=== PATIENT | female | born 1940 | race Caucasian/White ===

== ENCOUNTER 2019-10-26 10:29 | Outpatient (CLI) | payer MEDICARE, OTHER, SELFPAY ==
--- NOTE | ~2019-10-26 | XR_ITS ---
EXAMINATION: XR shoulder LT min 2V DATE: 10/26/2019 11:32 INDICATION: Left shoulder limited range of motion. TECHNIQUE: 4 views of left shoulder on 5 radiographs were obtained. COMPARISON: None. FINDINGS: Bone alignment is normal. No fracture. There is moderate osteoarthritis of glenohumeral nhung nt and acromioclavicular joint. IMPRESSION: 1. Polyarticular osteoarthritis. Reviewed, dictated and finalized at location E.
--- NOTE | ~2019-10-26 | XR_ITS ---
XR lumbar spine 2-3V DATE: 10/26/2019 11:31 INDICATION: Fall 2 weeks ago. Right hip pain, chest pain TECHNIQUE: AP, lateral, coned lateral lumbosacral views COMPARISON: 07/02/2017 lumbar spine FINDINGS: Diffuse osteopenia. There is interval moderate anterior wedge compression fracture deformity of L2 vertebral body since . No bone destruction is evident. The lumbar pedicles appear intact. Degenerative changes noted in the lower thoracic spine. There is moderate degenerative disc disease at L4-5. There is a transitional fifth lumbar vertebra. The sacroiliac joints appear normal. There is abdominal aortic calcification, without apparent aneur ysm. IMPRESSION: L2 anterior wedge compression fracture deformity since 07/02/2017 Osteopenia Degenerative changes Transitional fifth lumbar vertebra Reviewed, dictated and finalized at location A.
--- NOTE | ~2019-10-26 | XR_ITS ---
XR chest 2V DATE: 10/26/2019 11:32 INDICATION: Left chest pain. Fall 2 weeks ago. TECHNIQUE: 2 views COMPARISON: 11/25/2018 portable AP chest FINDINGS: Normal heart size. Aortic arch calcification. No hilar or mediastinal enlargement. No pulmonary infiltrate or consolidation, pleural effusion or pulmonary vascular congestion or pneumo thorax. Chronic mild elevation of right diaphragm anteriorly. Abdominal aortic calcification. Compression fracture deformity of L2 is suggested. Diffuse osteopenia. There are degenerative changes of the thoracic and lumbar spine. IMPRESSION: Compression fracture of L2; osteopenia No active cardiopulmonary disease Reviewed, dictated and finalized at location A.
--- NOTE | ~2019-10-26 | XR_ITS ---
EXAMINATION: XR hip RT min 2V DATE: 10/26/2019 11:32 INDICATION: Right hip pain. TECHNIQUE: 2 views of right hip were obtained. COMPARISON: Right hip radiographs 06/14/2012 FINDINGS: Bone alignment is normal. No fracture. There is moderate right hip osteoarthritis. IMPRESSION: 1. Stable moderate right hip osteoarthritis. Reviewed, dictated and finalized at location E.
--- NOTE | 2019-10-26 10:50 | ECG_ITS ---
Measurements Intervals [place] Rate: 68 P: 71 [place]: 156 QRS: 67 QRSD: 101 T: 66 QT: 398 QTc: 426 Interpretive Statements SINUS RHYTHM NORMAL ECG Electronically Signed On 10-26-2019 11:40:15 CDT by James Florian D.O.
[2019-10-26 10:51] LABS: Basophils Absolute Auto 0.08 K/mm3 (0.00-0.10); Basophils Percent Auto 0.9 % (0.0-1.0); Eosinophils Absolute Auto 0.17 K/mm3 (0.02-0.50); Eosinophils Percent Auto 1.9 % (1.0-6.0); Hematocrit 28.3 % (35.0-42.0); Hemoglobin 8.5 g/dL (11.7-13.8); Immature Granulocyte Absolute 0.04 K/mm3 (0.00-0.00); Immature Granulocyte Percent A 0.4 % (0.0-0.0); Lymphocytes Absolute Auto 1.27 K/mm3 (1.10-4.50); Lymphocytes Percent Auto 14.2 % (18.0-42.0); Mean Corpuscular Hemoglobin 21.5 pg (27.0-31.0); Mean Corpuscular Volume 71.6 fL (78.0-102.0); Mean Platelet Volume 8.1 fl (9.2-11.8); Monocytes Absolute Auto 0.97 K/mm3 (0.10-0.90); Monocytes Percent Auto 10.8 % (2.0-11.0); Neutrophils Absolute Auto 6.4 K/mm3 (1.7-7.2); Neutrophils Percent Auto 71.8 % (50.0-70.0); Platelet Count Result 494 K/mm3 (150-420); Red Blood Count 3.95 M/mm3 (4.20-5.40)
[2019-10-26 10:57] LABS: Add Urine Microscopic? YES; Appearance Urine Clear (Clear); Bilirubin Urine Negative (Negative); Blood Urine Negative (Negative); Color Urine Yellow (Yellow); Glucose Urine UA Negative (Negative); Ketones Urine Negative (Negative); Leukocyte Esterase Ur 1+ (Negative); Nitrate Urine Negative (Negative); Protein Urine Negative (Negative); Urobilinogen Urine 0.2 mg/dL (0.2-1.0)
[2019-10-26 11:01] LABS: Bacteria Urine 3+ /hpf; RBC Urine 0-2 /hpf (0-2); Squamous Epithelial Cell Urine Many /hpf (Few); WBC Urine 16-20 /hpf (0-3)
[2019-10-26 11:09] LABS: MALB Creatinine Ratio 14.6 mg/g (0-30); Microalbumin Urine Random 5.8 mg/L
[2019-10-26 11:16] LABS: Alanine Aminotransferase 43 U/L (14-59); Albumin Level 3.4 g/dL (3.4-5.0); Alkaline Phosphatase 108 U/L (46-116); Anion Gap 12.5 mmol/L (7-16); Aspartate Amino Transferase 28 U/L (15-37); Bilirubin,Total 0.3 mg/dL (0.00-1.00); Blood Urea Nitrogen 12 mg/dL (7-18); Calcium 8.8 mg/dL (8.5-10.1); Carbon Dioxide 31 mmol/L (21-32); Chloride 95 mmol/L (98-108); Creatine Kinase 55 U/L (26-192); Estimated Glomerular Filt Rate 38; Glucose 218 mg/dL (70-99); Magnesium 1.8 mg/dL (1.8-2.4); Osmolality Calculated 286 mOsm/kg (285-295); Potassium 3.5 mmol/L (3.5-5.1); Sodium 135 mmol/L (136-145); Thyroid Stimulating Hormone 1.24 uIU/mL (0.36-3.74); Total Protein 7.4 g/dL (6.4-8.2)
[2019-10-26 11:18] LABS: Creatine Kinase MB < 0.50 ng/mL (0.00-5.00); Troponin I < 0.02 ng/mL (0.00-0.056)
[2019-10-26 14:54] LABS: Ferritin 13 ng/mL (8-252); Iron 22 ug/dL (50-170); Percent Iron Saturation 5 % (12-57)
== END 2019-10-26 10:30 | disposition home or self-care (01) ==
PROVIDERS: PCP Family Medicine; Visit Provider Family Medicine
DX: R07.89 Other chest pain (principal); M25.512 Pain in left shoulder; M25.551 Pain in right hip; E83.42 Hypomagnesemia; I10 Essential (primary) hypertension; D64.9 Anemia, unspecified; W19.XXXA Unspecified fall, initial encounter
CPT/HCPCS: 36415; 71046; 72100; 73030; 73502; 80053; 81001; 82043; 82550; 82553; 82728; 83540; 83550; 83735; 84443; 84484; 85025; 93005

== ENCOUNTER 2020-02-16 09:55 | Outpatient (CLI) | payer MEDICARE, SELFPAY ==
[2020-02-16 10:10] LABS: Basophils Absolute Auto 0.07 K/mm3 (0.00-0.10); Basophils Percent Auto 0.9 % (0.0-1.0); Eosinophils Absolute Auto 0.16 K/mm3 (0.02-0.50); Hematocrit 28.5 % (35.0-42.0); Immature Granulocyte Absolute 0.03 K/mm3 (0.00-0.00); Immature Granulocyte Percent A 0.4 % (0.0-0.0); Lymphocytes Absolute Auto 1.99 K/mm3 (1.10-4.50); Lymphocytes Percent Auto 25.2 % (18.0-42.0); Mean Corpuscular HGB Conc 28.1 g/dL (32.0-36.0); Mean Corpuscular Hemoglobin 19.4 pg (27.0-31.0); Mean Corpuscular Volume 69.2 fL (78.0-102.0); Mean Platelet Volume 8.2 fl (9.2-11.8); Monocytes Absolute Auto 0.79 K/mm3 (0.10-0.90); Neutrophils Absolute Auto 4.9 K/mm3 (1.7-7.2); Neutrophils Percent Auto 61.5 % (50.0-70.0); Platelet Count Result 712 K/mm3 (150-420); Red Blood Count 4.12 M/mm3 (4.20-5.40); Red Cell Distribution Width 17.7 % (11.6-14.4); White Blood Count 7.9 K/mm3 (4.8-10.8)
[2020-02-16 11:05] LABS: Anion Gap 12 mmol/L (8-16); Blood Urea Nitrogen 13 mg/dL (7-18); Calcium 8.7 mg/dL (8.5-10.1); Carbon Dioxide 31 mmol/L (21-32); Chloride 104 mmol/L (98-108); Cholesterol 191 mg/dL (0-200); Estimated Glomerular Filt Rate 45; Ferritin 15 ng/mL (8-252); Glucose 156 mg/dL (70-99); HDL Direct 35 mg/dL (40-60); Iron 17 ug/dL (50-170); LDL Cholesterol Calculated 113 mg/dL (<130); Osmolality Calculated 307 mOsm/kg (285-295); Percent Iron Saturation 4 % (12-57); Potassium 4.7 mmol/L (3.5-5.1); Sodium 147 mmol/L (136-145); Triglycerides 215 mg/dL (0-150)
== END 2020-02-16 09:56 | disposition home or self-care (01) ==
LOC: CHSLAB 09:57
PROVIDERS: PCP Family Medicine; Visit Provider Family Medicine
DX: E78.2 Mixed hyperlipidemia (principal); I10 Essential (primary) hypertension; D64.9 Anemia, unspecified
CPT/HCPCS: 36415; 80048; 80061; 82728; 83540; 83550; 85025

== ENCOUNTER 2020-02-20 16:19 | Outpatient (CLI) | payer MEDICARE, SELFPAY ==
[2020-02-20 16:39] LABS: Occult Blood Negative (Negative)
[2020-02-20 16:40] LABS: Occult Blood Negative (Negative)
== END 2020-02-20 16:20 | disposition home or self-care (01) ==
PROVIDERS: PCP Family Medicine; Visit Provider Family Medicine
DX: D64.9 Anemia, unspecified (principal)
CPT/HCPCS: 82272

== ENCOUNTER 2020-06-21 12:55 | Outpatient (CLI) | payer MEDICARE, SELFPAY ==
[2020-06-21 13:14] LABS: Eosinophils Absolute Auto 0.21 K/mm3 (0.02-0.50); Hematocrit 28.6 % (35.0-42.0); Hemoglobin 8.4 g/dL (11.7-13.8); Immature Granulocyte Absolute 0.03 K/mm3 (0.00-0.00); Immature Granulocyte Percent A 0.3 % (0.0-0.0); Immature Platelet Fraction Pct 0.8 % (1.0-7.0); Lymphocytes Absolute Auto 2.16 K/mm3 (1.10-4.50); Lymphocytes Percent Auto 20.8 % (18.0-42.0); Mean Corpuscular HGB Conc 29.4 g/dL (32.0-36.0); Mean Corpuscular Hemoglobin 20.5 pg (27.0-31.0); Mean Corpuscular Volume 69.9 fL (78.0-102.0); Mean Platelet Volume 8.7 fl (9.2-11.8); Monocytes Absolute Auto 0.89 K/mm3 (0.10-0.90); Monocytes Percent Auto 8.6 % (2.0-11.0); Neutrophils Percent Auto 67.3 % (50.0-70.0); Platelet Count Result 581 K/mm3 (150-420); Red Blood Count 4.09 M/mm3 (4.20-5.40); Red Cell Distribution Width 17.4 % (11.6-14.4); White Blood Count 10.4 K/mm3 (4.8-10.8)
[2020-06-21 14:01] LABS: Alanine Aminotransferase 74 U/L (14-59); Albumin Level 3.7 g/dL (3.4-5.0); Alkaline Phosphatase 124 U/L (46-116); Anion Gap 11 mmol/L (8-16); Aspartate Amino Transferase 59 U/L (15-37); Bilirubin,Total 0.4 mg/dL (0.00-1.00); Blood Urea Nitrogen 13 mg/dL (7-18); Calcium 8.4 mg/dL (8.5-10.1); Carbon Dioxide 26 mmol/L (21-32); Chloride 91 mmol/L (98-108); Estimated Glomerular Filt Rate 39; Free T4 Free Thyroxine 1.33 ng/dL (0.76-1.46); Glucose 367 mg/dL (70-99); Iron 55 ug/dL (50-170); Osmolality Calculated 281 mOsm/kg (285-295); Percent Iron Saturation 12 % (12-57); Potassium 3.9 mmol/L (3.5-5.1); Sodium 128 mmol/L (136-145); Thyroid Stimulating Hormone 3.56 uIU/mL (0.36-3.74)
== END 2020-06-21 12:56 | disposition home or self-care (01) ==
LOC: CHSLAB 12:57
PROVIDERS: PCP Family Medicine; Visit Provider Family Medicine
DX: D64.9 Anemia, unspecified (principal); I10 Essential (primary) hypertension; R53.83 Other fatigue
CPT/HCPCS: 36415; 80053; 83540; 83550; 84439; 84443; 85025; 85055

== ENCOUNTER 2020-09-11 13:52 | Outpatient (CLI) | payer MEDICARE, SELFPAY ==
[2020-09-11 14:13] LABS: Basophils Absolute Auto 0.12 K/mm3 (0.00-0.10); Basophils Percent Auto 1.4 % (0.0-1.0); Eosinophils Absolute Auto 0.25 K/mm3 (0.02-0.50); Eosinophils Percent Auto 2.9 % (1.0-6.0); Hematocrit 30.2 % (35.0-42.0); Hemoglobin 8.6 g/dL (11.7-13.8); Immature Granulocyte Absolute 0.03 K/mm3 (0.00-0.00); Immature Granulocyte Percent A 0.3 % (0.0-0.0); Immature Platelet Fraction Pct 1.2 % (1.0-7.0); Lymphocytes Absolute Auto 1.69 K/mm3 (1.10-4.50); Lymphocytes Percent Auto 19.4 % (18.0-42.0); Mean Corpuscular HGB Conc 28.5 g/dL (32.0-36.0); Mean Corpuscular Hemoglobin 20.3 pg (27.0-31.0); Mean Corpuscular Volume 71.4 fL (78.0-102.0); Mean Platelet Volume 8.9 fl (9.2-11.8); Monocytes Absolute Auto 0.75 K/mm3 (0.10-0.90); Monocytes Percent Auto 8.6 % (2.0-11.0); Neutrophils Absolute Auto 5.9 K/mm3 (1.7-7.2); Neutrophils Percent Auto 67.4 % (50.0-70.0); Platelet Count Result 536 K/mm3 (150-420); Red Blood Count 4.23 M/mm3 (4.20-5.40); Red Cell Distribution Width 17.5 % (11.6-14.4); White Blood Count 8.7 K/mm3 (4.8-10.8)
[2020-09-11 15:10] LABS: Anion Gap 9 mmol/L (8-16); Blood Urea Nitrogen 17 mg/dL (7-18); Calcium 8.6 mg/dL (8.5-10.1); Carbon Dioxide 27 mmol/L (21-32); Chloride 95 mmol/L (98-108); Estimated Glomerular Filt Rate 34; Glucose 303 mg/dL (70-99); Osmolality Calculated 284 mOsm/kg (285-295); Sodium 131 mmol/L (136-145)
== END 2020-09-11 13:53 | disposition home or self-care (01) ==
LOC: CHSLAB 13:59
PROVIDERS: PCP Family Medicine; Visit Provider Family Medicine
DX: D64.9 Anemia, unspecified (principal); I10 Essential (primary) hypertension
CPT/HCPCS: 36415; 80048; 85025; 85055

== ENCOUNTER 2020-09-13 13:40 | Outpatient (CLI) | payer MEDICARE, SELFPAY ==
[2020-09-13 13:58] LABS: Add Urine Microscopic? YES; Appearance Urine Clear (Clear); Bilirubin Urine Negative (Negative); Blood Urine Negative (Negative); Color Urine Yellow (Yellow); Glucose Urine UA Trace (Negative); Ketones Urine Negative (Negative); Leukocyte Esterase Ur Trace (Negative); Nitrate Urine Negative (Negative); Protein Urine Trace (Negative); Urobilinogen Urine 0.2 mg/dL (0.2-1.0)
[2020-09-13 14:21] LABS: Bacteria Urine 3+ /hpf; RBC Urine 0-2 /hpf (0-2); Squamous Epithelial Cell Urine Many /hpf (Few)
== END 2020-09-13 13:41 | disposition home or self-care (01) ==
LOC: CHSLAB 13:42
PROVIDERS: PCP Family Medicine; Visit Provider Family Medicine
DX: D50.8 Other iron deficiency anemias (principal)
CPT/HCPCS: 81001

== ENCOUNTER 2020-12-26 15:49 | Outpatient (CLI) | payer MEDICARE, SELFPAY ==
[2020-12-26 16:04] LABS: Basophils Absolute Auto 0.11 K/mm3 (0.00-0.10); Basophils Percent Auto 1.3 % (0.0-1.0); Eosinophils Absolute Auto 0.12 K/mm3 (0.02-0.50); Eosinophils Percent Auto 1.5 % (1.0-6.0); Hematocrit 28.6 % (35.0-42.0); Hemoglobin 8.4 g/dL (11.7-13.8); Immature Granulocyte Absolute 0.02 K/mm3 (0.00-0.00); Immature Granulocyte Percent A 0.2 % (0.0-0.0); Immature Platelet Fraction Pct 0.8 % (1.0-7.0); Lymphocytes Absolute Auto 1.74 K/mm3 (1.10-4.50); Lymphocytes Percent Auto 21.1 % (18.0-42.0); Mean Corpuscular HGB Conc 29.4 g/dL (32.0-36.0); Mean Corpuscular Volume 68.3 fL (78.0-102.0); Mean Platelet Volume 8.2 fl (9.2-11.8); Monocytes Absolute Auto 0.85 K/mm3 (0.10-0.90); Monocytes Percent Auto 10.3 % (2.0-11.0); Neutrophils Absolute Auto 5.4 K/mm3 (1.7-7.2); Neutrophils Percent Auto 65.6 % (50.0-70.0); Platelet Count Result 571 K/mm3 (150-420); Red Blood Count 4.19 M/mm3 (4.20-5.40); Red Cell Distribution Width 18.7 % (11.6-14.4); White Blood Count 8.3 K/mm3 (4.8-10.8)
[2020-12-26 16:44] LABS: Alanine Aminotransferase 71 U/L (14-59); Albumin Level 3.7 g/dL (3.4-5.0); Alkaline Phosphatase 154 U/L (46-116); Anion Gap 15 mmol/L (8-16); Aspartate Amino Transferase 60 U/L (15-37); Bilirubin,Total 0.4 mg/dL (0.00-1.00); Blood Urea Nitrogen 17 mg/dL (7-18); Calcium 8.8 mg/dL (8.5-10.1); Carbon Dioxide 26 mmol/L (21-32); Chloride 98 mmol/L (98-108); Estimated Glomerular Filt Rate 37; Glucose 178 mg/dL (70-99); Osmolality Calculated 293 mOsm/kg (285-295); Potassium 4.3 mmol/L (3.5-5.1); Sodium 139 mmol/L (136-145); Thyroid Stimulating Hormone 3.74 uIU/mL (0.36-3.74); Total Protein 7.1 g/dL (6.4-8.2)
== END 2020-12-26 15:50 | disposition home or self-care (01) ==
LOC: CHSLAB 15:51
PROVIDERS: PCP Family Medicine; Visit Provider Family Medicine
DX: I10 Essential (primary) hypertension (principal); E03.8 Other specified hypothyroidism
CPT/HCPCS: 36415; 80053; 84443; 85025; 85055

== ENCOUNTER 2021-08-10 16:22 | Outpatient (NON) | payer MEDICARE, SELFPAY ==
[2021-08-10 16:38] LABS: Occult Blood Negative (Negative)
[2021-08-10 16:38] LABS: Occult Blood Negative (Negative)
[2021-08-10 16:38] LABS: Occult Blood Negative (Negative)
== END 2021-08-10 16:23 | disposition home or self-care (01) ==
LOC: CHSLAB 16:25
PROVIDERS: Visit Provider Family Medicine
DX: D50.9 Iron deficiency anemia, unspecified (principal)
CPT/HCPCS: 82272

== ENCOUNTER 2021-09-09 09:56 | Outpatient (CLI) | payer MEDICARE, SELFPAY ==
[2021-09-09 10:12] LABS: Basophils Absolute Auto 0.14 K/mm3 (0.00-0.10); Basophils Percent Auto 1.7 % (0.0-1.0); Eosinophils Absolute Auto 0.19 K/mm3 (0.02-0.50); Eosinophils Percent Auto 2.4 % (1.0-6.0); Hematocrit 23.8 % (35.0-42.0); Immature Granulocyte Absolute 0.02 K/mm3 (0.00-0.00); Immature Granulocyte Percent A 0.2 % (0.0-0.0); Immature Platelet Fraction Pct 1.4 % (1.0-7.0); Lymphocytes Percent Auto 21.2 % (18.0-42.0); Mean Corpuscular HGB Conc 26.5 g/dL (32.0-36.0); Mean Corpuscular Hemoglobin 17.3 pg (27.0-31.0); Mean Corpuscular Volume 65.2 fL (78.0-102.0); Mean Platelet Volume 8.7 fl (9.2-11.8); Monocytes Percent Auto 12.5 % (2.0-11.0); Platelet Count Result 636 K/mm3 (150-420); Red Blood Count 3.65 M/mm3 (4.20-5.40); Red Cell Distribution Width 19.3 % (11.6-14.4)
[2021-09-09 10:19] LABS: Hemoglobin 6.3 g/dL (11.7-13.8)
== END 2021-09-09 09:57 | disposition home or self-care (01) ==
LOC: CHSLAB 09:58
PROVIDERS: PCP Family Medicine; Visit Provider Family Medicine
DX: D64.9 Anemia, unspecified (principal)
CPT/HCPCS: 36415; 85025; 85055

== ENCOUNTER 2022-11-17 11:29 | Outpatient (CLI) | payer MEDICARE, SELFPAY ==
[2022-11-17 11:51] LABS: Basophils Absolute Auto 0.12 K/mm3 (0.00-0.10); Basophils Percent Auto 1.2 % (0.0-1.0); Hematocrit 35.2 % (35.0-42.0); Hemoglobin 11.4 g/dL (11.7-13.8); Immature Granulocyte Absolute 0.03 K/mm3 (0.00-0.00); Immature Granulocyte Percent A 0.3 % (0.0-0.0); Lymphocytes Absolute Auto 2.15 K/mm3 (1.10-4.50); Lymphocytes Percent Auto 21.5 % (18.0-42.0); Mean Corpuscular HGB Conc 32.4 g/dL (32.0-36.0); Mean Corpuscular Hemoglobin 32.7 pg (27.0-31.0); Mean Corpuscular Volume 100.9 fL (78.0-102.0); Monocytes Absolute Auto 1.11 K/mm3 (0.10-0.90); Monocytes Percent Auto 11.1 % (2.0-11.0); Neutrophils Absolute Auto 6.4 K/mm3 (1.7-7.2); Neutrophils Percent Auto 63.9 % (50.0-70.0); Platelet Count Result 306 K/mm3 (150-420); Red Blood Count 3.49 M/mm3 (4.20-5.40); Red Cell Distribution Width 13.5 % (11.6-14.4)
[2022-11-17 12:15] LABS: Alanine Aminotransferase 40 U/L (14-59); Albumin Level 3.3 g/dL (3.4-5.0); Alkaline Phosphatase 171 U/L (46-116); Anion Gap 9 mmol/L (8-16); Aspartate Amino Transferase 33 U/L (15-37); Bilirubin,Total 0.4 mg/dL (0.00-1.00); Blood Urea Nitrogen 17 mg/dL (7-18); Calcium 8.7 mg/dL (8.5-10.1); Carbon Dioxide 28 mmol/L (21-32); Chloride 98 mmol/L (98-108); Estimated Glomerular Filt Rate 53; Glucose 219 mg/dL (70-99); Osmolality Calculated 288 mOsm/kg (285-295); Potassium 4.5 mmol/L (3.5-5.1); Sodium 135 mmol/L (136-145); Total Protein 6.8 g/dL (6.4-8.2)
[2022-11-17 13:01] LABS: Appearance Urine Clear (Clear); Bilirubin Urine Negative (Negative); Blood Urine Negative (Negative); Color Urine Yellow (Yellow); Glucose Urine UA Negative (Negative); Ketones Urine Negative (Negative); Leukocyte Esterase Ur Negative (Negative); Nitrate Urine Negative (Negative); Protein Urine Negative (Negative); Urobilinogen Urine 0.2 mg/dL (0.2-1.0)
[2022-11-17 13:10] LABS: Creatinine Urine 143.24 mg/dL (40-278); MALB Creatinine Ratio 11.5 mg/g (0-30); Microalbumin Urine Random 16.6 mg/L
[2022-11-17 13:17] LABS: Add Urine Microscopic? NO
[2022-11-17 14:45] LABS: Hemoglobin A1C 8.3 % (<5.7)
== END 2022-11-17 11:30 | disposition home or self-care (01) ==
LOC: CHSLAB 11:32
PROVIDERS: PCP Family Medicine; Visit Provider Family Medicine
DX: I10 Essential (primary) hypertension (principal); E11.9 Type 2 diabetes mellitus without complications
CPT/HCPCS: 36415; 80053; 81003; 82043; 83036; 85025

== ENCOUNTER 2022-12-01 09:31 | Outpatient (CLI) | payer MEDICARE, OTHER, SELFPAY ==
--- NOTE | ~2022-12-01 | XR_ITS ---
Left ankle Technique: AP, oblique, and lateral views were obtained. Clinical History: Pain Findings: No acute fracture or dislocation is seen. Osseous alignment is anatomic. Ankle mortise and other visualized joint spaces are preserved. Soft tissues are otherwise unremarkable. Impression: Unremarkable left ankle. Reviewed, dictated and finalized at location . Impression: Unremarkable left ankle.
== END 2022-12-01 09:32 | disposition home or self-care (01) ==
PROVIDERS: PCP Family Medicine; Visit Provider Family Medicine
DX: I51.89 Other ill-defined heart diseases (principal); M25.572 Pain in left ankle and joints of left foot
CPT/HCPCS: 73610

== ENCOUNTER 2023-08-04 13:00 | Emergency (ER) | payer MEDICARE, OTHER, SELFPAY ==
--- NOTE | ~2023-08-04 | XR_ITS ---
EXAMINATION: XR shoulder RT min 2V INDICATION: Right shoulder pain TECHNIQUE: Four views of the right shoulder are submitted. COMPARISON: 09/03/2015 FINDINGS: Normal alignment. No fracture. There is moderate osteoarthritis of the acromioclavicular an d glenohumeral joints. Soft tissues are unremarkable. IMPRESSION: 1. Moderate osteoarthritis without acute osseous abnormality. Reviewed, dictated and finalized at location L. UTE RESOLUTION ANALYST
--- NOTE | ~2023-08-04 | XR_ITS ---
EXAMINATION: XR knee RT min 4V DATE: 08/04/2023 13:59 INDICATION: Fall. TECHNIQUE: 3 views of right knee were obtained. COMPARISON: Right knee radiographs 12/28/2013 FINDINGS: Bone alignment is normal. No fracture. There is mild tricompartmental osteoarthritis. There is a small knee joint effusion. There is prepatellar and superficial infrapatellar soft tissue swell ing. IMPRESSION: 1. Mild right knee osteoarthritis. 2. Small right knee joint effusion. Reviewed, dictated and finalized at location A. RAM PROJECT MANAGER
--- NOTE | ~2023-08-04 | XR_ITS ---
EXAMINATION: XR elbow RT min 3V INDICATION: Right elbow pain TECHNIQUE: Four views of the right elbow are obtained. COMPARISON: None available FINDINGS: Bone alignment is normal. There is no fracture. There is moderate osteoarthritis of the elb ow. The soft tissues are unremarkable. IMPRESSION: 1. Osteoarthritis without acute osseous abnormality. Reviewed, dictated and finalized at location L. SHABLE FRUIT INSPECTOR
--- NOTE | ~2023-08-04 | CT_ITS ---
EXAMINATION: CT facial & cervical spine wo DATE: 08/04/2023 14:01 INDICATION: Head injury, initial encounter TECHNIQUE: Computed tomography (CT) of the maxillofacial region and cervical spine was performed with out intravenous contrast. The dose-length product (DLP) was 415.64 mGy-cm. Automated exposure control and iterative reconstruction technique were employed. COMPARISON: None FINDINGS: MAXILLOFACIAL CT: There are acute bilateral nasal bone fractures, mildly comminuted and displaced on the left. No addit ional facial fracture is identified. Orbits are normal. CERVICAL SPINE CT: There are 2 mm of anterolisthesis of C4 on C5. The vertebral body heights are maintained. There is mo derate loss of intervertebral disc space height at C5-C6. The odontoid process is intact. There is mu ltilevel moderate facet and uncovertebral joint osteoarthritis. The prevertebral soft tissues are nor mal. IMPRESSION: 1. Acute bilateral nasal bone fractures, mildly comminuted and displaced on the left. 2. Moderate cervical spondylosis without acute findings. Reviewed, dictated and finalized at location L. CH THERAPIST TECHNICIAN
--- NOTE | ~2023-08-04 | CT_ITS ---
EXAMINATION: CT brain wo con DATE: 08/04/2023 13:59 INDICATION: Head injury. TECHNIQUE: Computed tomography (CT) of the head was performed without intravenous contrast. The mA wa s adjusted according to patient size. Iterative reconstruction technique was employed. The dose-lengt h product was 605.33 mGy-cm. COMPARISON: None FINDINGS: There are scattered areas of low attenuation in the cerebral white matter, which is within normal limits for the patient's age. There is no intracranial hemorrhage, acute infarction, or abnorm al intracranial mass lesion. The ventricles are normal in size. There is mild mucosal thickening in t he paranasal sinuses. There is a fracture of left nasal bone. There are likely changes of ocular lens replacement surgeries. The mastoid air cells are normal. IMPRESSION: 1. Normal aging brain. 2. Fracture of left nasal bone. Reviewed, dictated and finalized at location A. ROOM HAND
[2023-08-04 13:00] VITALS: BP 128/64; PULSE 80; RESP 18; TEMP 36.1; O2SAT 93
--- NOTE | 2023-08-04 13:04 | ED.FALL ---
HPI - Fall General Chief Complaint: Fall Stated Complaint: fall Time Seen by Provider: 08/04/23 13:04 Patient is an 83-year-old female with a mechanical fall prior to arrival. She was walking in the parking lot after having a few drinks and tripped and fell onto her right side and right face. Source: patient Mode of arrival: ambulatory Limitations: no limitations History of Present Illness MD complaint: fall Onset (ago): minute(s) (30) Fall from: standing Fall witnessed: yes, by family Place fall occurred: street Loss of consciousness: none Prolonged down time: no Symptoms prior to fall: none Context: tripped/slipped and alcohol use Location of injury: head, face and other Location of injury - extremities: Right: shoulder and knee Severity: mild Severity scale (1-10): 2 Quality: dull Associated symptoms (after fall): denies Related Data Home Medications Medication Instructions Recorded Confirmed No Home Medications 06/11/19 06/11/19 Allergies Allergy/AdvReac Type Severity Reaction Status Date / Time No Known Allergies Allergy Unverified 08/04/23 14:14 Review of Systems Review of Systems: All systems reviewed & are unremarkable except as noted in HPI and below Constitutional: Constitutional: Reports no additional constitutional complaints Eyes: Eyes: Reports no additional eye complaints ENT: Reports system reviewed and no additional complaints, except as documented Cardiovascular: Cardiovascular: Reports no additional cardiovascular complaints Respiratory: Respiratory: Reports no additional respiratory complaints Gastrointestinal: Gastrointestinal: Reports no additional gastrointestinal complaints Genitourinary: Genitourinary: Reports no additional female genitourinary complaints Musculoskeletal: Musculoskeletal: Reports no additional musculoskeletal complaints Integumentary/Breasts: Skin/Breast: Reports system reviewed and no additional complaints, except as docu Neurologic: Reports system reviewed and no additional complaints, except as documented Psychiatric: Psychiatric: Reports no additional psychiatric complaints Endocrine: Endocrine: Reports no additional endocrine complaints Hematologic/Lymphatic: Hematologic/Lymphatic: Reports no additional hematologic/lymphatic complaints Allergic/Immunologic: Allergic/Immunologic: Reports no additional allergic/immunologic complaints PMFSH Family History Family History Other Family history of arthritis Social History Social History Alcohol intake: current Exam Const: General: healthy appearing Nutritional Appearance: well nourished Orientation/consciousness: patient oriented x3 HENMT: Head: normal to inspection Ears: external ears normal Face/Nose/Sinus: Normal external nose present Face and sinus: normal facial exam Eyes: Conjunctivae: conjunctivae normal Pupils: Equal, round and reactive pupils present EOM: EOMs intact bilaterally Neck: Neck: normal visual inspection Chest: Chest palpation & inspection: normal inspection of the chest Resp: Effort & Inspection: normal respiratory effort and not labored Auscultation: clear to auscultation bilaterally and no crackles Cardio: Rate: regular rate Rhythm: regular rhythm Heart sounds: no murmurs GI: Inspection: non-distended GI Palp: Yes Soft to palpation and No Tenderness to palpation present (GI) Auscultation: normal bowel sounds : General: Yes bladder normal to palpation Back/Spine/Pelvis: Back: no CVA tenderness Skin: General skin exam: normal color Rashes: no rashes Wounds: wound noted and wounds noted Other: Abrasions of the right knee right elbow and of the face; the bridge of the nose has a small superficial laceration with some ecchymosis Neuro: General: patient oriented x3 Cranial nerves: Yes Nystagmus not present Speech: normal speech Ex
--- NOTE | 2023-08-04 14:35 | PC.NURSE ---
On 08/04/23, the student, Marisol Cabrera, provided care and completed [facility] documentation on this patient. I have reviewed the student's documentation and agree with the findings.
[2023-08-04 14:39] VITALS: BP 128/64; PULSE 80; RESP 18; TEMP 36.1; O2SAT 93
--- NOTE | 2023-08-04 14:39 | PC.NURSE ---
Patient unable to tolerate discharge blood pressure and ripped off cuff. Patient and family refused discharge vitals.
== END 2023-08-04 14:39 | disposition home or self-care (01) ==
PROVIDERS: Emergency Provider Emergency Medicine; PCP Family Medicine
DX: S02.2XXA Fracture of nasal bones, initial encounter for closed fracture (principal); S00.33XA Contusion of nose, initial encounter; W01.0XXA Fall on same level from slipping, tripping and stumbling without subsequent striking against object, initial encounter; Y92.481 Parking lot as the place of occurrence of the external cause
CPT/HCPCS: 70450; 70486; 72125; 73030; 73080; 73564; 99284

== ENCOUNTER 2024-05-14 01:54 | Emergency (ER) | payer MEDICARE, OTHER, SELFPAY ==
--- NOTE | ~2024-05-14 | XR_ITS ---
EXAMINATION: XR hip RT 2V w AP pelvis DATE: 05/14/2024 03:01 INDICATION: Fall. TECHNIQUE: An anteroposterior view of the pelvis and 2 views of right hip were obtained. COMPARISON: None. FINDINGS: There is lumbar dextrocurvature. There are fractures of right superior and inferior pubic r ami. There is a fracture of the right sacral ala. There is moderate right hip osteoarthritis and mild left hip osteoarthritis. IMPRESSION: 1. Fractures of right superior and inferior pubic rami and the right sacral ala. 2. Moderate right hip osteoarthritis and mild left hip osteoarthritis. Reviewed, dictated and finalized at location A. ODUCTS MAKER IMPRESSION: 1. Fractures of right superior and inferior pubic rami and the right sacral ala . 2. Moderate right hip osteoarthritis and mild left hip osteoarthritis.
--- NOTE | ~2024-05-14 | XR_ITS ---
EXAMINATION: XR femur RT min 2V DATE: 05/14/2024 03:01 INDICATION: Right thigh injury. Fall. TECHNIQUE: 2 views of right femur on 4 radiographs were obtained. COMPARISON: None. FINDINGS: There are fractures of the right superior and inferior pubic rami and right sacral ala. The re is moderate right hip and knee osteoarthritis. No knee joint effusion. IMPRESSION: 1. Fractures of the right superior and inferior pubic rami and right sacral ala. 2. Polyarticular osteoarthritis. Reviewed, dictated and finalized at location A. PROGRAM COORDINATOR IMPRESSION: 1. Fractures of the right superior and inferior pubic rami and right sacral ala . 2. Polyarticular osteoarthritis.
--- NOTE | ~2024-05-14 | CT_ITS ---
EXAMINATION: CT brain wo con DATE: 05/14/2024 02:34 INDICATION: Head injury. Head and neck pain. TECHNIQUE: Computed tomography (CT) of the head was performed without intravenous contrast. The mA wa s adjusted according to patient size. Iterative reconstruction technique was employed. The dose-lengt h product was 605.33 mGy-cm. COMPARISON: head CT 08/04/2023 FINDINGS: There are scattered areas of low attenuation in the cerebral white matter, which is within normal limits for the patient's age. There is no intracranial hemorrhage, acute infarction, or abnorm al intracranial mass lesion. The ventricles are normal in size. There is mucosal thickening in the pa ranasal sinuses. There are likely changes of ocular lens replacement surgeries. The mastoid air cells are normal. There is an old fracture of left nasal bone. IMPRESSION: 1. Normal aging brain. Reviewed, dictated and finalized at location A. STRIAL RECRUITER IMPRESSION: 1. Normal aging brain.
--- NOTE | ~2024-05-14 | CT_ITS ---
EXAMINATION: CT cervical spine wo con DATE: 05/14/2024 02:35 INDICATION: Head and neck pain. Fall. TECHNIQUE: Computed tomography (CT) of the cervical spine was performed without intravenous contrast. Automated exposure control and iterative reconstruction technique were employed. The dose-length pro duct was 546.05 mGy-cm. COMPARISON: CT cervical spine 08/04/2023 FINDINGS: There is mild scarring at the lung apices. A calcified right lung nodule is consistent with old granulomatous disease. There is mild kyphosis of cervical spine. There is 2 mm anterolisthesis o f C4 on C5. Vertebral body heights are normal. There is mildly decreased disc height at C4-C5 and sev erely decreased disc height at C5-C6 and C6-C7. The following disc levels are specifically discussed: C2-C3: There is no uncovertebral joint osteoarthritis. There is severe bilateral facet joint osteoart hritis. There is no neural foraminal stenosis. There is no central canal stenosis. C3-C4: There is mild bilateral uncovertebral joint osteoarthritis. There is severe bilateral facet marie int osteoarthritis. There is no neural foraminal stenosis. There is mild central canal stenosis. C4-C5: There is moderate bilateral uncovertebral joint osteoarthritis. There is severe bilateral face t joint osteoarthritis. There is mild bilateral neural foraminal stenosis. There is mild central desmond l stenosis. C5-C6: There is severe bilateral uncovertebral joint osteoarthritis. There is moderate right and tayler re left facet joint osteoarthritis. There is mild bilateral neural foraminal stenosis. There is moder ate central canal stenosis. C6-C7: There is moderate right and severe left uncovertebral joint osteoarthritis. There is severe bi lateral facet joint osteoarthritis. There is mild bilateral neural foraminal stenosis. There is mild central canal stenosis. C7-T1: There is no uncovertebral joint osteoarthritis. There is severe bilateral facet joint osteoart hritis. There is mild bilateral neural foraminal stenosis. There is no central canal stenosis. IMPRESSION: 1. No fracture. 2. Severe cervical spondylosis. Reviewed, dictated and finalized at location A. ING AND CURING OPERATOR
--- NOTE | ~2024-05-14 | CT_ITS ---
EXAMINATION: CT abdomen pelvis w con DATE: 05/14/2024 04:01 INDICATION: Pelvic fracture. Fall. TECHNIQUE: Computed tomography (CT) of the abdomen and pelvis was performed with 100 mL Omnipaque 350 intravenous contrast. Automated exposure control and iterative reconstruction technique were employe d. The dose-length product was 1461.26 mGy-cm. COMPARISON: CT abdomen and pelvis 01/14/2013 FINDINGS: The visualized portions of the lung bases demonstrate mild atelectasis. No pleural effusion . The heart size is normal. No pericardial effusion. There is a small sliding hiatal hernia. The live r, gallbladder, spleen, pancreas, and adrenal glands are normal. There is cortical thinning of the ki dneys. There is a 6 mm cyst in left kidney. There is calcified atherosclerosis of the aorta and many of the other arteries. There are no dilated loops of bowel. The appendix is not visualized. There are no pathologically enlarged lymph nodes. There are enlarged collateral veins around the inferior mese nteric vein. There are fractures of the right superior and inferior pubic rami and right sacral ala. There are chronic compression fractures of L1 on L2. IMPRESSION: 1. Insufficiency fractures of the right superior and inferior pubic rami and right sacral ala. 2. Small sliding hiatal hernia. Reviewed, dictated and finalized at location A. E OPERATOR IMPRESSION: 1. Insufficiency fractures of the right superior and inferior pubic rami and ri ght sacral ala. 2. Small sliding hiatal hernia.
[2024-05-14 01:55] VITALS: O2SAT 90
[2024-05-14 02:00] VITALS: BP 140/61; PULSE 78; RESP 20; TEMP 36.3; O2SAT 92
--- NOTE | 2024-05-14 02:03 | ED.FALL ---
HPI - Fall General Chief Complaint: Fall Stated Complaint: fall Time Seen by Provider: 05/14/24 02:00 Source: patient and EMS Mode of arrival: EMS Limitations: dementia History of Present Illness HPI Narrative: patient is a 83-year-old female who lives at the long term and has baseline dementia. Her dementia is moderate in nature. It appears she had a mechanical fall while trying to get up in the middle the night and they heard her on the floor yelling. It appears she sustained a right hip pain after the fall. There is some notation of a head injury. She is in a C-collar. MD complaint: fall Onset (ago): hour(s) (2) Fall from: standing Fall witnessed: no Place fall occurred: home Loss of consciousness: unsure Prolonged down time: no and minute(s) Symptoms prior to fall: none ( Unable to completely obtain this information but she appears to be not having any complaints at this time except the right hip) Context: tripped/slipped Location of injury: head, pelvis and other ( right hip) Location of injury - extremities: Right: thigh ( right hip) Severity: moderate Severity scale (1-10): 4 Quality: sharp Associated symptoms (after fall): unable to walk Related Data Home Medications Medication Instructions Recorded Confirmed No Home Medications 06/11/19 06/11/19 Allergies Allergy/AdvReac Type Severity Reaction Status Date / Time No Known Allergies Allergy Unverified 08/04/23 14:14 Review of Systems Review of Systems: All systems reviewed & are unremarkable except as noted in HPI and below Constitutional: Constitutional: Reports no additional constitutional complaints Eyes: Eyes: Reports no additional eye complaints ENT: Reports system reviewed and no additional complaints, except as documented Cardiovascular: Cardiovascular: Reports no additional cardiovascular complaints Respiratory: Respiratory: Reports no additional respiratory complaints Gastrointestinal: Gastrointestinal: Reports no additional gastrointestinal complaints Genitourinary: Genitourinary: Reports no additional female genitourinary complaints Musculoskeletal: Musculoskeletal: Reports no additional musculoskeletal complaints Integumentary/Breasts: Skin/Breast: Reports system reviewed and no additional complaints, except as docu Neurologic: Reports system reviewed and no additional complaints, except as documented Psychiatric: Psychiatric: Reports no additional psychiatric complaints Endocrine: Endocrine: Reports no additional endocrine complaints Hematologic/Lymphatic: Hematologic/Lymphatic: Reports no additional hematologic/lymphatic complaints Allergic/Immunologic: Allergic/Immunologic: Reports no additional allergic/immunologic complaints [facility] Family History Family History Other Family history of arthritis Social History Social History Alcohol intake: current Exam Const: General: healthy appearing Nutritional Appearance: well nourished Orientation/consciousness: No patient oriented x3 ( AAO x1 and we have heard that she is x2 or even x3 at times) Limitations: other limitations ( baseline dementia) HENMT: Head: normal to inspection Ears: external ears normal Face/Nose/Sinus: Normal external nose present Eyes: Conjunctivae: conjunctivae normal Pupils: Equal, round and reactive pupils present EOM: EOMs intact bilaterally Neck: Neck: normal visual inspection Chest: Chest palpation & inspection: normal inspection of the chest Resp: Effort & Inspection: normal respiratory effort and not labored Auscultation: clear to auscultation bilaterally and no crackles Cardio: Rate: regular rate Rhythm: regular rhythm Heart sounds: no murmurs GI: Inspection: non-distended GI Palp: Yes Soft to palpation and No Tenderness to palpation present (GI) Auscultation: normal bowel sounds : General: Yes bladder normal to palpation Back/Spine/Pelvis: Back: no CVA tenderness Cervical Spine: collar present Skin: General skin exam: normal color Rashes: no rashes Wounds: no wounds Neuro: General: No patient oriented x3 ( AAO x1), No moves all extremities ( difficulty moving her right lower extremity secondary to pain), no meningeal signs, no focal motor deficits ( right lower extremity is not a focal deficit but it is pain related) and CN's II-XI intact bilaterally Cranial nerves: Yes Nystagmus not present Speech: normal speech Gait exam (Neuro): gait abnormal ( patient has a baseline of walking but required EMS to bring her to the ER) Extrem: General: abnormal to inspection ( tender right hip and upper femur as well as pelvis on examination), no clubbing, cyanosis or edema and no pedal edema Psych: Mental Status: mental status grossly normal Affect: normal affect Attitude: cooperative Course Vital Signs Vital signs: Vital Signs Pulse Oximetry 90 05/14/24 01:55 Oxygen Delivery Nasal Cannula 05/14/24 01:55 Oxygen Flow Rate 3 05/14/24 01:55 Temperature 36.3 C L 05/14/24 02:00 Pulse Rate 85 05/14/24 03:10 Respiratory Rate 20 05/14/24 03:10 Blood Pressure 134/64 05/14/24 03:10 Pulse Oximetry 92 05/14/24 03:10 Oxygen Delivery Nasal Cannula 05/14/24 03:10 Oxygen Flow Rate 3 05/14/24 03:10 MDM - Fall MDM Narrative Medical decision making narrative: patient is an 83-year-old female living at the long term with a mechanical fall. We will do a workup to include x-rays and CT scan and labs for reassurance. we are unable to do a straight catheterization due to her pain and the concern of the pelvic fracture. We will hold on the urinalysis at this time. Lab Data Attestation: I reviewed the patient's lab results. 05/14/24 03:03 05/14/24 03:03 Labs: Lab Results 05/14/24 05/14/24 Range/Units 02:17 03:03 WBC 11.8 H (4.8-10.8) K/mm3 RBC 4.14 L (4.20-5.40) M/mm3 Hgb 12.9 (11.7-13.8) g/dL Hct 39.2 (35.0-42.0) % MCV 94.7 (78.0-102.0) fL MCH 31.2 H (27.0-31.0) pg MCHC 32.9 (32-36) g/dL RDW 14.1 (11.6-14.4) % Plt Count 270 (150-420) K/mm3 MPV 9.4 (9.2-11.8) fl Immature Gran % (Auto) 0.7 H (0.0-0.0) % Neut % (Auto) 72.3 H (50.0-70.0) % Lymph % (Auto) 15.2 L (18.0-42.0) % [place] % (Auto) 8.2 (2.0-11.0) % Eos % (Auto) 2.7 (1.0-6.0) % Baso % (Auto) 0.9 (0.0-1.0) % Lymph # (Auto) 1.79 (1.10-4.50) K/mm3 [place] # (Auto) 0.97 H (0.10-0.90) K/mm3 Eos # (Auto) 0.32 (0.02-0.50) K/mm3 Baso # (Auto) 0.11 H (0.00-0.10) K/mm3 Abs Immat Gran (auto) 0.08 H (0.00-0.00) K/mm3 Absolute Neuts (auto) 8.52 H (1.70-7.20) K/mm3 Absolute Nucleated RBC 0.00 (0.00-0.00) K/mm3 Nucleated RBC % 0.0 (0-0.0) % PT 11.0 (9.50-12.1) Seconds INR 1.0 APTT 26.6 (23.9-30.70) Sec Sodium 137 (136-145) mmol/L Potassium 4.4 (3.5-5.1) mmol/L Chloride 101 (98-108) mmol/L Carbon Dioxide 26 (21-32) mmol/L Anion Gap 10 (4-12) mmol/L BUN 38 H (7-18) mg/dL Creatinine 1.45 H (0.55-1.02) mg/dL Estim Creat Clear Calc 32 ml/min Estimated GFR 35 L (59 - ) Glucose 127 H (70-99) mg/dL Calculated Osmolality 295 (285-295) mOsm/kg Lactic Acid 0.9 (0.4-2.0) mmol/L Calcium 8.6 (8.5-10.1) mg/dL Total Bilirubin 0.7 (0.00-1.00) mg/dL AST 34 (15-37) U/L ALT 34 (14-59) U/L Alkaline Phosphatase 127 H (46-116) U/L Troponin I 4.0 (0.00-60.4) ng/L Total Protein 7.2 (6.4-8.2) g/dL Albumin 3.3 L (3.4-5.0) g/dL Influenza A (RT-PCR) Negative (Negative) Influenza B (RT-PCR) Negative (Negative) RSV (RT-PCR) Negative (Negative) SARS-CoV-2 RNA (RT-PCR) Negative (Negative) Imaging Data Attestation: I personally reviewed and interpreted this imaging study as follows: Radiologist's impression: X-ray of the pelvis and hip on the right shows rami fracture comminuted (pending final read) ECG Data EKG #1: Attestation: I personally reviewed and interpreted this ECG as follows: ECG completion date: 05/14/24 ECG completion time: 03:27 EKG Interpretation: normal rate, sinus rhythm, no ectopy, no ST changes, normal QRS, normal QT and NL axis Discharge Plan Discharge Clinical Impression: Closed pelvic fracture, Fall, Trauma Patient Disposition: Acute Care Hospital Condition: Serious Prescriptions: No Action No Home Medications Follow-up/Referrals: Cedric Nguyen MD [Primary Care Provider] - Time of Disposition: 03:55
--- NOTE | 2024-05-14 02:16 | PC.NURSE ---
COVID PCR obtained and taken to lab
[2024-05-14] MEDS: MORPHINE SULFATE (*CRX) 2 MG/ML INJ IV PUSH (02:20)
--- NOTE | 2024-05-14 03:00 | PC.NURSE ---
Pt repositioned in bed and diaper changed after return from CT. Pt daughter at bedside at this time. Pt still c/o lots of pain in her Rt hip. Pillow used for supprot of extremity.
[2024-05-14 03:06] LABS: Influenza A QL RT-PCR Negative (Negative); Influenza B QL RT-PCR Negative (Negative); SARS-CoV-2 RNA PCR Negative (Negative)
[2024-05-14 03:07] LABS: Basophils Absolute Auto 0.11 K/mm3 (0.00-0.10); Basophils Percent Auto 0.9 % (0.0-1.0); Eosinophils Absolute Auto 0.32 K/mm3 (0.02-0.50); Eosinophils Percent Auto 2.7 % (1.0-6.0); Hematocrit 39.2 % (35.0-42.0); Hemoglobin 12.9 g/dL (11.7-13.8); Immature Granulocyte Absolute 0.08 K/mm3 (0.00-0.00); Immature Granulocyte Percent A 0.7 % (0.0-0.0); Lymphocytes Absolute Auto 1.79 K/mm3 (1.10-4.50); Lymphocytes Percent Auto 15.2 % (18.0-42.0); Mean Corpuscular HGB Conc 32.9 g/dL (32-36); Mean Corpuscular Hemoglobin 31.2 pg (27.0-31.0); Mean Corpuscular Volume 94.7 fL (78.0-102.0); Mean Platelet Volume 9.4 fl (9.2-11.8); Monocytes Absolute Auto 0.97 K/mm3 (0.10-0.90); Monocytes Percent Auto 8.2 % (2.0-11.0); Neutrophils Absolute Auto 8.52 K/mm3 (1.70-7.20); Neutrophils Percent Auto 72.3 % (50.0-70.0); Platelet Count Result 270 K/mm3 (150-420); Red Blood Count 4.14 M/mm3 (4.20-5.40); Red Cell Distribution Width 14.1 % (11.6-14.4); White Blood Count 11.8 K/mm3 (4.8-10.8)
[2024-05-14 03:07] LABS: RSV RNA, RT-PCR Negative (Negative)
[2024-05-14 03:10] VITALS: BP 134/64; PULSE 85; RESP 20; O2SAT 92
--- NOTE | 2024-05-14 03:15 | ECG_ITS ---
Test Date: 2024-05-14 03:05:17 Measurements Intervals [place] Rate: 80 P: 58 [place]: 166 QRS: 33 QRSD: 90 T: 39 QT: 408 QTc: 471 Interpretive Statements SINUS RHYTHM No previous ECG available for comparison Electronically Signed On 05-16-2024 20:15:29 REEL CUTTER by Micky Love M.D.
[2024-05-14 03:28] LABS: Alanine Aminotransferase 34 U/L (14-59); Albumin Level 3.3 g/dL (3.4-5.0); Alkaline Phosphatase 127 U/L (46-116); Aspartate Amino Transferase 34 U/L (15-37); Bilirubin,Total 0.7 mg/dL (0.00-1.00); Blood Urea Nitrogen 38 mg/dL (7-18); Calcium 8.6 mg/dL (8.5-10.1); Carbon Dioxide 26 mmol/L (21-32); Estimated CRCL calculation 32 ml/min; Estimated Glomerular Filt Rate 35; Glucose 127 mg/dL (70-99); Total Protein 7.2 g/dL (6.4-8.2)
[2024-05-14 03:30] LABS: Lactic Acid Reflex 0.9 mmol/L (0.4-2.0)
[2024-05-14] MEDS: MORPHINE SULFATE (*CRX) 4 MG/ML INJ IV PUSH (03:30)
[2024-05-14 03:34] LABS: Anion Gap 10 mmol/L (4-12); Chloride 101 mmol/L (98-108); Osmolality Calculated 295 mOsm/kg (285-295); Potassium 4.4 mmol/L (3.5-5.1); Sodium 137 mmol/L (136-145)
--- NOTE | 2024-05-14 03:50 | PC.NURSE ---
ERP spoke w/ pts daughter about Xray results and need for transfer to trauma facility. Daughter wanting pt to go to [place]. Pt will have CT w/ contrast, call placed to [place].
[2024-05-14 03:57] LABS: Partial Thromboplastin Time 26.6 Sec (23.9-30.70)
--- NOTE | 2024-05-14 03:59 | PC.NURSE ---
Pt accepted by [facility] Dr Vallecillo.
--- NOTE | 2024-05-14 04:05 | PC.NURSE ---
CT head and neck report negative, order to remove c-collar, collar removed.
[2024-05-14] MEDS: SODIUM CHLORIDE 0.9% IV 1,000 ML 100 ML IV CONT (04:13)
[2024-05-14 04:17] VITALS: BP 142/70; PULSE 86; RESP 20; TEMP 36.6; O2SAT 94
[2024-05-14 04:37] VITALS: BP 136/76; PULSE 86; RESP 20; O2SAT 95
== END 2024-05-14 04:37 | disposition short-term general hospital (02) ==
PROVIDERS: Emergency Provider Emergency Medicine; PCP Family Medicine
DX: S32.511A Fracture of superior rim of right pubis, initial encounter for closed fracture (principal); S32.591A Other specified fracture of right pubis, initial encounter for closed fracture; F03.90 Unspecified dementia, unspecified severity, without behavioral disturbance, psychotic disturbance, mood disturbance, and anxiety; Z20.822 Contact with and (suspected) exposure to COVID-19; W18.30XA Fall on same level, unspecified, initial encounter; Y92.129 Unspecified place in nursing home as the place of occurrence of the external cause
CPT/HCPCS: 36415; 70450; 72125; 73502; 73552; 74177; 80053; 83605; 84484; 85025; 85610; 85730; 87637; 93005; 96374; 96376; 99285; J2270; J7030; Q9967

== ENCOUNTER 2024-05-21 06:35 | Emergency (ER) | payer MEDICARE, OTHER, SELFPAY ==
--- NOTE | ~2024-05-21 | CT_ITS ---
EXAMINATION: CT cervical spine wo con DATE: 05/21/2024 07:57 INDICATION: Fall with altered mental status TECHNIQUE: Computed tomography (CT) of the cervical spine was performed without intravenous contrast. Automated exposure control and iterative reconstruction technique were employed. The dose-length pro duct was 465.51 mGy-cm. COMPARISON: 05/14/2024 FINDINGS: Straightening of the normal cervical lordosis. Mild cervicothoracic levocurvature. Unchanged 2 mm ant erolisthesis C4 on C5. Vertebral body heights are normal. No fracture. Moderate to severe disc height loss at C5-C6, C6-C7 and T2-T3 and mild disc height loss at C4-C5, C7-T1 and T1-T2. Disc bulges and posterior disc osteophyte complexes resulting in moderate central canal stenosis at C5-C6 and mild ce ntral canal stenosis at C3-C4, C4-C5 and C6-C7. Multilevel uncovertebral and facet osteoarthritis con tributing to mild neural foraminal stenosis bilaterally at C4-C5 through C7-T1. Biapical pleural-pare nchymal scarring with respiratory motion and mild atelectasis related to expiratory phase of imaging at the visualized upper lungs. IMPRESSION: 1. Moderate to severe cervical spondylosis. No acute osseous abnormality. Reviewed, dictated and finalized at location A. NCIAL PLANNING ADVISOR
--- NOTE | ~2024-05-21 | XR_ITS ---
EXAMINATION: XR chest 1V portable DATE: 05/21/2024 07:57 INDICATION: Fall. Altered mental status. TECHNIQUE: frontal view of the chest was obtained. COMPARISON: Chest radiograph dated 10/26/2019 FINDINGS: Chronic elevation the right hemidiaphragm. The left hemidiaphragm and left heart border are indistinc t which appears to result from a prominent left paracardial fat pad which can be seen on CT the abdom en dated 05/14/2024. No other airspace opacities, pulmonary edema, pneumothorax or definitive pleural effusion. Heart size is within normal limits for AP technique. Visualized bones and soft tissues are unremarkable. IMPRESSION: 1. Chronic elevation the right hemidiaphragm with decreased right lung volume. 2. No other evident acute cardiopulmonary disease with assessment of the lower lungs on the limited b y patient body habitus. Reviewed, dictated and finalized at location A. LOPER ARCHITECT IMPRESSION: 1. Chronic elevation the right hemidiaphragm with decreased right lung volume. 2. No other evident acute cardiopulmonary disease with assessment of the lower lungs on the limited by patient body habitus.
--- NOTE | ~2024-05-21 | XR_ITS ---
EXAMINATION: XR pelvis 1-2V DATE: 05/21/2024 07:58 INDICATION: Fall with pelvic fracture. TECHNIQUE: An anteroposterior view of the pelvis was obtained. COMPARISON: CT dated 05/14/2024 FINDINGS: Evaluation limited by patient body habitus with underpenetration. Again seen are the recent displaced fractures of the right superior and inferior pubic rami. No new fractures identified. Mild osteoarth ritis at the bilateral hips. At least moderate lower lumbar spondylosis. IMPRESSION: 1. Redemonstration of displaced, now subacute fractures of the right superior and inferior pubic rami . 2. No new fractures identified although evaluation is limited by body habitus and underpenetration.. Reviewed, dictated and finalized at location A. SORTER IMPRESSION: 1. Redemonstration of displaced, now subacute fractures of the right superior a nd inferior pubic rami. 2. No new fractures identified although evaluation is limited by body habitus a nd underpenetration..
--- NOTE | ~2024-05-21 | CT_ITS ---
EXAMINATION: CT brain wo con DATE: 05/21/2024 07:58 INDICATION: Fall. Altered mental status. TECHNIQUE: Computed tomography (CT) of the head was performed without intravenous contrast. Sagittal and coronal reconstructions were performed. The mA was adjusted according to patient size. Iterative reconstruction technique was employed. The dose-length product was 605.33 mGy-cm. COMPARISON: head CT dated 05/14/2024 FINDINGS: No acute fracture. No acute intracranial hemorrhage, acute infarction or abnormal extra axial fluid c ollection. There is mild scattered white matter hypoattenuation consistent with chronic small vessel ischemic disease. Symmetric prominence of the sulci and and subarachnoid spaces overlying the convexi ties consistent with mild age-appropriate diffuse cerebral volume loss. Ventricles are normal and sym metric. No mass/mass effect. Changes of bilateral intraocular lens replacement. The orbits, paranasal sinuses and mastoid air cells are normal. IMPRESSION: 1. Normal aging brain. Reviewed, dictated and finalized at location A. [facility] IMPRESSION: 1. Normal aging brain.
[2024-05-21 06:44] VITALS: BP 156/102; PULSE 80; RESP 18; TEMP 36.4; O2SAT 93
--- NOTE | 2024-05-21 06:45 | PC.NURSE ---
NOTIFIED DANDY WHITE THAT PATIENT WAS IN DEPARTMENT.
--- NOTE | 2024-05-21 06:58 | ED.FALL ---
HPI - Fall General Chief Complaint: Fall Stated Complaint: fall Time Seen by Provider: 05/21/24 06:41 Source: patient and EMS Mode of arrival: ambulatory Limitations: no limitations History of Present Illness HPI Narrative: 83-year-old female with a history of dementia presented to the ED on 05/14/2024 with right superior and inferior pubic rami and right sacral alar fracture. The patient was transferred to [facility] for further management. The patient was discharged from [facility] yesterday evening. The patient was brought in to the ED by EMS for -- found on the floor. unsure if the patient had a fall. The patient does not appear to be in any kind of distress. -- altered mental status which is chronic. The patient denies any complaints. MD complaint: fall Onset (ago): hour(s) ( 1 hour ago) Fall from: standing Fall witnessed: no Place fall occurred: [facility] Loss of consciousness: unsure Related Data Home Medications ?Medication ?Instructions ?Recorded ?Confirmed ?Last Taken ?Type amlodipine 10 mg tablet mg 05/21/24 Unknown History apixaban 2.5 mg tablet (Eliquis) 2.5 mg PO BID 05/21/24 Unknown History aspirin 81 mg tablet,delayed 81 mg PO DAILY 05/21/24 Unknown History release (Enteric Coated Aspirin) atorvastatin 10 mg tablet mg 05/21/24 Unknown History cholecalciferol (vitamin D3) 25 1,000 unit PO DAILY 05/21/24 Unknown History mcg (1,000 unit) capsule (Vitamin D3) citalopram 20 mg tablet mg 05/21/24 Unknown History cyanocobalamin (vitamin B-12) 1,000 mcg PO DAILY 05/21/24 Unknown History 1,000 mcg capsule docusate sodium 100 mg capsule 100 mg PO BID 05/21/24 Unknown History (Col-Rite) ferrous sulfate 325 mg (65 mg 325 mg PO DAILY 05/21/24 Unknown History iron) tablet (Feosol) glimepiride 1 mg tablet mg 05/21/24 Unknown History hydrocodone 5 mg-acetaminophen 325 tablet 05/21/24 Unknown History mg tablet levothyroxine 137 mcg tablet mcg 05/21/24 Unknown History lidocaine 4 % topical patch 1 patch topical DAILY PRN pain 05/21/24 Unknown History (Lidocaine Pain Relief) lorazepam 1 mg tablet mg 05/21/24 Unknown History methocarbamol 500 mg tablet 500 mg PO TID 05/21/24 Unknown History omeprazole 20 mg capsule,delayed 20 mg PO DAILY 05/21/24 Unknown History release pioglitazone 30 mg tablet mg 05/21/24 Unknown History polyethylene glycol 3350 17 4 g PO DAILY PRN constipation 05/21/24 Unknown History gram/dose oral powder (ClearLax) quetiapine 50 mg tablet mg 05/21/24 Unknown History Allergies Allergy/AdvReac Type Severity Reaction Status Date / Time No Known Allergies Allergy Verified 05/21/24 07:45 Review of Systems Review of Systems: patient is unable to answer questions. She has a history of dementia and is usually confused. COUNTS INCLUDE 234 BEDS AT THE [facility] Past Medical History Medical History (Updated 05/21/24 @ 09:41 by Orlando Bill MD) Sacral fracture Pelvic fracture CKD (chronic kidney disease) Dementia Family History Family History Other Family history of arthritis Social History Social History Alcohol intake: current Exam Narrative: blood pressure 156/102. Oxygen saturation of 93% on 2 L of O2. Const: General: no acute distress Nutritional Appearance: well nourished Orientation/consciousness: patient oriented x3 ( Patient is alert and oriented x1.) Limitations: altered mental status HENMT: Head: normal to inspection Ears: external ears normal Face/Nose/Sinus: Normal external nose present Face and sinus: normal facial exam Mouth: Yes Normal oral and palatal mucosa present Throat: posterior oropharynx normal Eyes: Conjunctivae: conjunctivae normal Pupils: Equal, round and reactive pupils present EOM: EOMs intact bilaterally Direct Ophthalmoscopy: no photophobia Neck: Neck: normal visual inspection, no lymphadenopathy and no meningeal signs Chest: Chest palpation & inspection: normal inspection of the chest Resp: Effort & Inspection: normal respiratory effort Auscultation: clear to auscultation bilaterally Cardio: Rate: regular rate Rhythm: regular rhythm GI: Auscultation: normal bowel sounds Other: No tenderness/ rigidity / rebound. : General: Yes no CVA tenderness Back/Spine/Pelvis: Back: no CVA tenderness Skin: General skin exam: normal color Rashes: no rashes Wounds: no wounds Neuro: General: moves all extremities, no meningeal signs, no focal motor deficits and CN's II-XI intact bilaterally Cranial nerves: Yes Nystagmus not present Speech: normal speech Other: Patient is alert and oriented x1. She is confused Extrem: General: normal to inspection and no clubbing, cyanosis or edema Psych: Other: patient is confused. She does not answer questions appropriately. Course Course Emergency Course: questionable fall- CT of the head and the C-spine did not show any acute findings. Chest x-ray did not show any acute findings. X-ray of the pelvis revealed fracture of right superior and inferior pubic rami which was noted on prior x-rays. Altered mental status-- will give the patient home dose of Quetiapine Vital Signs Vital signs: Vital Signs Temperature 36.4 C L 05/21/24 06:44 Pulse Rate 80 05/21/24 06:44 Respiratory Rate 18 05/21/24 06:44 Blood Pressure 156/102 H 05/21/24 06:44 Pulse Oximetry 93 05/21/24 06:44 Oxygen Delivery Nasal Cannula 05/21/24 06:44 Oxygen Flow Rate 2 05/21/24 06:44 Temperature 36.4 C L 05/21/24 06:44 Pulse Rate 80 05/21/24 06:44 Respiratory Rate 18 05/21/24 06:44 Blood Pressure 156/102 H 05/21/24 06:44 Pulse Oximetry 93 05/21/24 06:44 Oxygen Delivery Nasal Cannula 05/21/24 06:44 Oxygen Flow Rate 2 05/21/24 06:44 MDM - Fall MDM Narrative Medical decision making narrative: accidental fall altered mental status Differential Diagnosis Differential diagnosis: Likely concussion without loss of consciousness Medical Records Attestation: I reviewed the patient's medical records. Lab Data Attestation: I reviewed the patient's lab results. 05/21/24 08:11 05/21/24 08:11 Labs: Lab Results 05/21/24 05/21/24 Range/Units 08:00 08:11 WBC 14.1 H (4.8-10.8) K/mm3 RBC 3.27 L (4.20-5.40) M/mm3 Hgb 10.5 L (11.7-13.8) g/dL Hct 31.8 L (35.0-42.0) % MCV 97.2 (78.0-102.0) fL MCH 32.1 H (27.0-31.0) pg MCHC 33.0 (32-36) g/dL RDW 14.6 H (11.6-14.4) % Plt Count 285 (150-420) K/mm3 MPV 9.1 L (9.2-11.8) fl Immature Gran % (Auto) 1.4 H (0.0-0.0) % Neut % (Auto) 67.0 (50.0-70.0) % Lymph % (Auto) 16.4 L (18.0-42.0) % [place] % (Auto) 11.5 H (2.0-11.0) % Eos % (Auto) 2.9 (1.0-6.0) % Baso % (Auto) 0.8 (0.0-1.0) % Lymph # (Auto) 2.30 (1.10-4.50) K/mm3 [place] # (Auto) 1.62 H (0.10-0.90) K/mm3 Eos # (Auto) 0.41 (0.02-0.50) K/mm3 Baso # (Auto) 0.11 H (0.00-0.10) K/mm3 Abs Immat Gran (auto) 0.20 H (0.00-0.00) K/mm3 Absolute Neuts (auto) 9.41 H (1.70-7.20) K/mm3 Absolute Nucleated RBC 0.04 H (0.00-0.00) K/mm3 Nucleated RBC % 0.3 H (0-0.0) % Sodium 137 (136-145) mmol/L Potassium 4.5 (3.5-5.1) mmol/L Chloride 103 (98-108) mmol/L Carbon Dioxide 24 (21-32) mmol/L Anion Gap 10 (4-12) mmol/L BUN 27 H (7-18) mg/dL Creatinine 0.93 (0.55-1.02) mg/dL Estim Creat Clear Calc 42 ml/min Estimated GFR 58 L (59 - ) Glucose 120 H (70-99) mg/dL Calculated Osmolality 290 (285-295) mOsm/kg Lactic Acid 1.3 (0.4-2.0) mmol/L Calcium 8.6 (8.5-10.1) mg/dL Total Bilirubin 1.5 H (0.00-1.00) mg/dL AST 47 H (15-37) U/L ALT 38 (14-59) U/L Alkaline Phosphatase 161 H (46-116) U/L Total Protein 6.9 (6.4-8.2) g/dL Albumin 3.2 L (3.4-5.0) g/dL Lipase 28 (16-77) U/L Urine Color Yellow (Yellow) Urine Appearance Clear (Clear) Urine pH 5.0 (5.0-8.0) Ur Specific Mason 1.020 (1.010-1.020) Urine Protein 1+ H (Negative) Urine Glucose (UA) Negative (Negative) Urine Ketones 1+ H (Negative) Ur Blood (Man) 2+ H (Negative) Urine Nitrate Negative (Negative) Urine Bilirubin 2+ H (Negative) Urine Urobilinogen 1.0 (0.2-1.0) mg/dL Leukocyte Esterase Rfl Negative (Negative) SID/UL Urine RBC 6-10 H (0-2) /hpf Urine WBC 0-3 (0-3) /hpf Ur Squamous Epith Cells Rare (Few) /hpf Urine Bacteria Trace (None) /hpf Discharge Plan Discharge Clinical Impression: Accidental fall Qualifiers: Encounter type: initial encounter Qualified Code(s): W19.XXXA - Unspecified fall, initial encounter Altered mental status Qualifiers: Altered mental status type: disorientation Qualified Code(s): R41.0 - Disorientation, unspecified Patient Disposition: NH Long Term/Asst Living Condition: Stable Instructions: Antibiotic Form Patient Language: Togolese Prescriptions: No Action levothyroxine 137 mcg tablet atorvastatin 10 mg tablet hydrocodone-acetaminophen 5-325 mg tablet glimepiride 1 mg tablet citalopram 20 mg tablet amlodipine 10 mg tablet pioglitazone 30 mg tablet quetiapine 50 mg tablet Eliquis 2.5 mg tablet 2.5 mg PO BID aspirin [Enteric Coated Aspirin] 81 mg tablet,delayed release (DR/EC) 81 mg PO DAILY lorazepam 1 mg tablet cholecalciferol (vitamin D3) [Vitamin D3] 25 mcg (1,000 unit) capsule 1,000 unit PO DAILY cyanocobalamin (vitamin B-12) 1,000 mcg capsule 1,000 mcg PO DAILY ferrous sulfate [Feosol] 325 mg (65 mg iron) tablet 325 mg PO DAILY docusate sodium [Col-Rite] 100 mg capsule 100 mg PO BID lidocaine [Lidocaine Pain Relief] 4 % adhesive patch,medicated 1 patch topical DAILY PRN (Reason: pain) methocarbamol 500 mg tablet 500 mg PO TID polyethylene glycol 3350 [ClearLax] 17 gram/dose powder 4 g PO DAILY PRN (Reason: constipation) omeprazole 20 mg capsule,delayed release(DR/EC) 20 mg PO DAILY Follow-up/Referrals: Cedric Nguyen MD [Primary Care Provider] - Time of Disposition: 09:41
--- NOTE | 2024-05-21 07:01 | PC.NURSE ---
Report given to KHLOE Castanon
--- NOTE | 2024-05-21 07:38 | PC.NURSE ---
0700 report from alberto soto. resumed care of pt. introduced self to pt. call alegria in reach. pt is pleasantly confused. follows directions. pt placed in gown. 0720 pt to xray dept via stretcher with xray staff, cristian.
[2024-05-21 08:14] LABS: Basophils Absolute Auto 0.11 K/mm3 (0.00-0.10); Basophils Percent Auto 0.8 % (0.0-1.0); Eosinophils Absolute Auto 0.41 K/mm3 (0.02-0.50); Eosinophils Percent Auto 2.9 % (1.0-6.0); Hematocrit 31.8 % (35.0-42.0); Hemoglobin 10.5 g/dL (11.7-13.8); Immature Granulocyte Percent A 1.4 % (0.0-0.0); Lymphocytes Percent Auto 16.4 % (18.0-42.0); Mean Corpuscular Hemoglobin 32.1 pg (27.0-31.0); Mean Corpuscular Volume 97.2 fL (78.0-102.0); Mean Platelet Volume 9.1 fl (9.2-11.8); Monocytes Absolute Auto 1.62 K/mm3 (0.10-0.90); Monocytes Percent Auto 11.5 % (2.0-11.0); Neutrophils Absolute Auto 9.41 K/mm3 (1.70-7.20); Nucleated Red Blood Cells Absolute Auto 0.04 K/mm3 (0.00-0.00); Nucleated Red Blood Cells Perc 0.3 % (0-0.0); Platelet Count Result 285 K/mm3 (150-420); Red Blood Count 3.27 M/mm3 (4.20-5.40); Red Cell Distribution Width 14.6 % (11.6-14.4); White Blood Count 14.1 K/mm3 (4.8-10.8)
[2024-05-21 08:14] LABS: Add Urine Microscopic? YES; Appearance Urine Clear (Clear); Bilirubin Urine 2+ (Negative); Blood Urine 2+ (Negative); Color Urine Yellow (Yellow); Glucose Urine UA Negative (Negative); Ketones Urine 1+ (Negative); Leukocyte Esterase Ur Negative LEU/UL (Negative); Nitrate Urine Negative (Negative); Protein Urine 1+ (Negative)
[2024-05-21 08:21] LABS: Bacteria Urine Trace /hpf; Squamous Epithelial Cell Urine Rare /hpf (Few); WBC Urine 0-3 /hpf (0-3)
[2024-05-21 08:26] LABS: Lipase 28 U/L (16-77)
[2024-05-21 08:29] LABS: Alanine Aminotransferase 38 U/L (14-59); Albumin Level 3.2 g/dL (3.4-5.0); Alkaline Phosphatase 161 U/L (46-116); Anion Gap 10 mmol/L (4-12); Aspartate Amino Transferase 47 U/L (15-37); Bilirubin,Total 1.5 mg/dL (0.00-1.00); Blood Urea Nitrogen 27 mg/dL (7-18); Calcium 8.6 mg/dL (8.5-10.1); Carbon Dioxide 24 mmol/L (21-32); Chloride 103 mmol/L (98-108); Estimated CRCL calculation 42 ml/min; Estimated Glomerular Filt Rate 58; Glucose 120 mg/dL (70-99); Osmolality Calculated 290 mOsm/kg (285-295); Potassium 4.5 mmol/L (3.5-5.1); Sodium 137 mmol/L (136-145); Total Protein 6.9 g/dL (6.4-8.2)
[2024-05-21 08:32] LABS: Lactic Acid Reflex 1.3 mmol/L (0.4-2.0)
--- NOTE | 2024-05-21 08:39 | PC.NURSE ---
update to zain loera. she is out of town. pt yelling wanting to go home. awaiting lab/xray results. reassurance given repeatedly.
[2024-05-21] MEDS: HYDROcodone/acetaminophen (*CRX) 5-325 MG TABLET 1 TAB PO (08:47)
--- NOTE | 2024-05-21 08:54 | PC.NURSE ---
pt yelling , wanting to go home, confused. attempted to reorientate , unsuccessful. you just want me to , your lieing to me, your going to steal all my things and bury me my leg hurts so bad . attempts to reposition pt, unsuccessful.
--- NOTE | 2024-05-21 09:21 | PC.NURSE ---
food provided as pt stated im hungry you are starving me so i will . sandwich and applesauce provided. pt refusing to eat , offered other items.
--- NOTE | 2024-05-21 09:32 | PC.NURSE ---
granddaughter Danny here to help reassure pt. attempted to get pt up to bedside chair as pt requested. unsuccessful, pt screaming in pain. repositioned back up in bed. call alegria in reach
[2024-05-21] MEDS: QUEtiapine FUMARATE 25 MG TABLET 50 MG PO (09:45)
[2024-05-21] MEDS: methocarbamoL 500 MG TABLET PO (09:45)
[2024-05-21 10:16] VITALS: PULSE 88; RESP 20; O2SAT 90
--- NOTE | 2024-05-21 10:29 | PC.NURSE ---
gwen, charge nurse at [facility] notified of pt return.
--- OUTSIDE RECORDS SUMMARY | 2024-05-24 20:18 | XMS_ITS | Encounter Summary ---
Author Organization [facility] Health Address [address] [place] [address] Care Team Providers Care Nursing Assistant Name Role Phone Cedric Nguyen MD Primary Care Provider [phone] Encounter Details Date Type Department Care Team (Late st Contact Info) Description 11/17/2016 Anesthesia Historic Visit [facility] [address] [place] [id number] Social History Tobacco Use Types Packs/Day Years Used Date Smoking Tobacco: Never Assessed Sex and Gender Information Value Date Recorded Sex Assigned at Not on file Gender Identity Not on file Sexual Orientation Not on file documented as of this encounter Plan of Treatment Not on file documented as of this encounter Visit Diagnoses Not on filedocumented in this encounter Care Teams Nursing Assistant Relationship Specialty Start Date End Date Cedric Nguyen MD [address] [place] [address] PCP - General 09/17/16 documented as of this encounter
--- OUTSIDE RECORDS SUMMARY | 2024-05-24 20:18 | XMS_ITS | Encounter Summary ---
Author Organization [facility] Health Address [address] [place] [address] Care Team Providers Care Certified Driver Examiner Name Role Phone Cedric Nguyen MD Primary Care Provider [phone] Encounter Details Date Type Department Care Team (Late st Contact Info) Description 08/19/2017 Hospital Outpatient Visit Historic [facility] [address] [place] [phone] Amy Hu MD [address] [facility] [address] [place] [phone] Discharge Disposition: Home or Self Care Social History Tobacco Use Types Packs/Day Years Used Date Smoking Tobacco: Never Smokeless Tobacco: Never Alcohol Use Standard Drinks/Week Comments Yes 5 (1 standard drink = 0.6 oz pur e alcohol) Sex and Gender Information Value Date Recorded Sex Assigned at Not on file Gender Identity Not on file Sexual Orientation Not on file documented as of this encounter Plan of Treatment Not on file documented as of this encounter Visit Diagnoses Not on filedocumented in this encounter Care Teams Certified Driver Examiner Relationship Specialty Start Date End Date Cedric Nguyen MD [address] [place] [id number] PCP - General 09/17/16 documented as of this encounter
--- OUTSIDE RECORDS SUMMARY | 2024-05-24 20:18 | XMS_ITS | Clinical Summary ---
Author Organization [facility] [employer] Address [address] [place] [address] Care Team Providers Care Rn Internal Medicine Name Role Phone Cedric Nguyen MD Primary Care Provider [phone] Source Comments [facility] [employer],non-owned Affiliates and Associated Physician Practices is amultiple site organization consisting of ambulatory clinics and hospital sitesin [place], [place], [place] and [place]. This disclosure is being madepursuant to the Care Everywhere program and may not contain all information available regarding this patient. Last updated 18.[facility] [employer] Medications * Be aware that medications may not be up to date on this document. Alwaysverify current medications with the patient. Medication Sig Dispensed Refills Start Date End Date Status aspirin (ASPIRIN) 325 MG tablet Take 325 mg by mouth q6h PRN (Pain). 11/12/2016 Active LORazepam (ATIVAN) 0.5 MG tablet Take by mouth. 11/12/2016 Active levothyroxine (SYNTHROID) 100 MCG tablet Take 100 mcg by mouth DAILY. 10/08/2016 Active lisinopril-hydroCHLORO thiazide (PRINZIDE; ZESTORETIC) 20-12.5 MG tablet Take 1 tablet by mouth DAILY. 10/08/2016 Active omeprazole (PRILOSEC) 20 MG capsule Take 20 mg by mouth DAILY. 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 11/18/2016 Occlusion and stenosis of right carotid artery 0 11/17/2016 Occlusion and stenosis of left carotid artery Family History Medical History Relation Name Comments Bleeding Disorders Brother CAD (Coronary Artery Disease) Brother Alcohol abuse Father Cirrhosis Father Cancer Mother Cancer Sister Relation Name Status Comments Brother Father Mother Sister Social History Tobacco Use Types Packs/Day Years Used Date Smoking Tobacco: Never Smokeless Tobacco: Never Alcohol Use Standard Drinks/Week Comments Yes 5 (1 standard drink = 0.6 oz pur e alcohol) Sex and Gender Information Value Date Recorded Sex Assigned at Not on file Gender Identity Not on file Sexual Orientation Not on file Last Filed Vital Signs Vital Sign Reading Time Taken Comments Blood Pressure 110/58 08/19/2017 11:46 AM CDT Pulse 93 08/19/2017 11:46 AM CDT Temperature 36.4 ??C (97.6 ??F) 08/19/2017 11:46 AM C DT Respiratory Rate 20 11/18/2016 2:00 PM CDT Oxygen Saturation 99% 02/25/2017 9:24 AM CDT Inhaled Oxygen Concentration - - Weight 67.1 kg (148 lb) 08/19/2017 11:46 AM CDT Height 162.6 cm (5' 4 ) 08/19/2017 11:46 AM CDT Body Mass Index 25.4 08/19/2017 11:46 AM CDT Plan of Treatment Health Maintenance Due Date Last Done Comments BONE DENSITY TESTING 1942 MEDICARE AWV ? 12 MONTHS 1942 DTAP/TDAP/TD VACCINES (1 - Tdap) 1961 ZOSTER VACCINE (1 of 2) 1992 PNEUMOCOCCAL VACCINE 65+ (1 of 1 - PCV) 2007 Respiratory Syncytial Virus (RSV) Vaccine Pt: or over 60 yrs (1 - 1-dose 75+ series) 2017 DEPRESSION SCREENING 06/08/2023 COVID-19 VACCINE ( - 2023-2 5 season) 2024 INFLUENZA VACCINE (#1) 2024 HEPATITIS B VACCINE Aged Out No longe r eligible based on patient's age to complete this topic HIB VACCINE Aged Out No longer eligi ble based on patient's age to complete this topic HPV VACCINE Aged Out No longer eligi ble based on patient's age to complete this topic MENINGOCOCCAL VACCINE Aged Out No cornelius helder eligible based on patient's age to complete this topic Care Teams Rn Internal Medicine Relationship Specialty Start Date End Date Cedric Nguyen MD [address] [place] [address] PCP - General 09/17/16
--- OUTSIDE RECORDS SUMMARY | 2024-05-24 20:18 | XMS_ITS | Encounter Summary ---
Author Organization [facility] Address [address] [place] [address] Care Team Providers Care Technical Analyst Name Role Phone Cedric Nguyen MD Primary Care Provider [phone] Encounter Details Date Type Department Care Team (Latest Contact Info) Description 08/19/2017 [facility] [address] [phone] Discharge Disposition: Home or Self Care Social [...] on file documented as of this encounter Procedures Procedure Name Priority Date/Time Associated Diagnosis Comments VAS CAROTID DUPLEX BILATERAL Routine 08/19/2017 11:08 AM CDT documented in this encounter Results * VAS CAROTID DUPLEX BILATERAL (08/19/2017 11:08 AM CDT) Anatomical Region Laterality Modality Other Julieta Osorio TRANSPORTATION LEAD-FOOD PROCESSING CHEMIST VASCULAR LAB OR DERABLES documented in this encounter Visit Diagnoses Diagnosis Occlusion and stenosis of right carotid artery Occlusion and stenosis of carotid artery without mention of cerebral infarction Occlusion and stenosis of left carotid artery Occlusion and stenosis of carotid artery without mention of cerebral infarction documented in this encounter Care Teams Technical Analyst Relationship Specialty Start Date End Date Cedric Nguyen MD [address] [place] [address] PCP - General 09/17/16 documented as of this encounter
--- OUTSIDE RECORDS SUMMARY | 2024-05-24 20:18 | XMS_ITS | Patient Health Summary ---
Author Organization [facility] Address [address] [place] [address] Care Team Providers Care Linux Network Administrator Name Role Phone Cedric Nguyen MD Primary Care Provider [phone] Note from [facility],non-owned Affiliates and Associated Physician Practices is amultiple site organization consisting of ambulatory clinics and hospital sitesin [place], [place], [place] and [place]. This disclosure is being madepursuant to the Care Everywhere program and may not contain all information available regarding this patient. Last updated 18.[facility] [employer] Medications * Be aware that medications may not be up to date on this document. Alwaysverify current medications with the patient. * aspirin (ASPIRIN) 325 MG tablet(Started 11/12/2016) Take 325 mg by mouth q6h PRN (Pain). * LORazepam (ATIVAN) 0.5 MG tablet(Started 11/12/2016) Take by mouth. * levothyroxine (SYNTHROID) 100 MCG tablet(Started 10/08/2016) Take 100 mcg by mouth DAILY. * lisinopril-hydroCHLOROthiazide (PRINZIDE; ZESTORETIC) 20-12.5 MG tablet (Started 10/08/2016) Take 1 tablet by mouth DAILY. * omeprazole (PRILOSEC) 20 MG capsule(Started 10/08/2016) Take 20 mg by mouth DAILY. 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 11/18/2016 Occlusion and stenosis of right carotid artery 0 11/17/2016 Occlusion and stenosis of left carotid artery Social History Tobacco Use Types Packs/Day Years [...] Mass Index 25.4 08/19/2017 11:46 AM CDT Procedures * VAS CAROTID DUPLEX BILATERAL(Performed 08/19/2017) * VAS CAROTID DUPLEX BILATERAL(Performed 02/25/2017) * BASIC METABOLIC PANEL (CALCIUM TOTAL)(Performed 11/18/2016) * PHOSPHORUS BLOOD(Performed 11/18/2016) * MAGNESIUM BLOOD(Performed 11/18/2016) * CBC W AUTO DIFFERENTIAL(Performed 11/18/2016) * CBC W AUTO DIFFERENTIAL(Performed 11/18/2016) * ACT - POCT (IP) [facility](Performed 11/17/2016) * ACT - POCT (IP) [facility](Performed 11/17/2016) * PATHOLOGY TISSUE(Performed 11/17/2016) * TYPE + SCREEN PANEL(Performed 11/17/2016) * BLOOD GASES ARTERIAL(Performed 11/17/2016) * BASIC METABOLIC PANEL (CALCIUM TOTAL)(Performed 11/17/2016) * ACT - POCT (IP) [facility](Performed 11/17/2016) * TYPE + SCREEN PANEL(Performed 11/12/2016) * BASIC METABOLIC PANEL (CALCIUM TOTAL)(Performed 11/12/2016) * CBC W AUTO DIFFERENTIAL(Performed 11/12/2016) * CBC W AUTO DIFFERENTIAL(Performed 11/12/2016) * EKG 12-LEAD(Performed 11/12/2016) Results * VAS CAROTID DUPLEX BILATERAL (08/19/2017 11:08 AM CDT) Only the most recent of2 resultswithin the time period is included. Anatomical Region Laterality Modality Other Julieta Osorio JACK-CURRICULUM DEVELOPMENT COORDINATOR VASCULAR LAB OR DERABLES * (ABNORMAL) CBC W AUTO DIFFERENTIAL (11/18/2016 12:02 AM CDT) Only the most recent of4 resultswithin the time period is included. WBC 9.3 3.5 - 10.5 10? 3 /uL [facility] RBC 3.08(L) 3.90 - 5.00 10? 6 /uL [facility] Hemoglobin 9.1(L) 12.0 - 15.5 g/dL [facility] Hematocrit 27.6(L) 35.0 - 45.0 % [facility] MCV 89.6 81.0 - 97.0 fL [facility] MCH 29.5 28.0 - 34.0 pg [facility] MCHC 33.0 32.0 - 36.0 g/dL [facility] Platelet Count 357 150 - 400 10? 3 /uL [facility] RDW-SD 44.1 36.0 - 50.0 fL [facility] RDW-CV 13.5 11.2 - 14.8 % [facility] MPV 8.5(L) 9.3 - 12.8 fL [facility] Neutrophils % 79.5(H) 35.0 - 70.0 % [facility] Lymphocytes % 12.8(L) 19.7 - 55.1 % [facility] Monocytes % 7.2 3.0 - 15.0 % [facility] Eosinophils % 0.1 0.0 - 6.0 % [facility] Basophil % 0.4 0.0 - 1.5 % [facility] Neutrophils Absolute 7.4(H) 1.6 - 7.0 10? 3 /uL [facility] Lymphocyte Absolute 1.2 0.8 - 2.9 10? 3 /uL [facility] Monocytes Absolute 0.67(H) 0.14 - 0.66 10? 3 /uL [facility] Eosinophils Absolute 0.01 0.00 - 0.22 10? 3 /uL [facility] Basophils Absolute 0.04 0.00 - 0.06 10? 3 /uL [facility] Immature Granulocytes % 0.2 0.0 - 1.0 % [facility] Blood specimen (specimen) BLOOD SPECIMEN / Unknown 11/18/2016 12:02 AM CDT 11/18/2016 12:05 AM CDT Amy Hu MD LAB - HEMATOLOGY OR DERABLES Performing Organization Address City/[facility]/ZIP Co de Phone Number [address] [phone] * (ABNORMAL) BASIC METABOLIC PANEL (CALCIUM TOTAL) (11/18/2016 12:02 AM CDT) Only the most recent of3 resultswithin the time period is included. BUN 19 7 - 26 mg/dL [facility] Creatinine 0.9 0.6 - 1.2 mg/dL [facility] Sodium 136 136 - 145 mmol/L [facility] Potassium 4.6(H) 3.5 - 4.5 mmol/L [facility] Chloride 106 98 - 107 mmol/L [facility] CO2 21(L) 22 - 29 mmol/L [facility] Glucose 120(H) 70 - 115 mg/dL [facility] Calcium 8.3(L) 8.4 - 10.2 mg/dL [facility] Anion Gap 14 8 - 18 [facility] BUN/Creatinine Ratio 21 7 - 23 [facility] Osmolality Calculated 285 270 - 300 mOsm/kg [facility] eGFR >60 >60 mL/min/1.7 3 m2 [facility] Blood specimen (specimen) BLOOD SPECIMEN / Unknown 11/18/2016 12:02 AM CDT 11/18/2016 12:05 AM CDT Amy Hu MD LAB - CHEMISTRY ORD ERABLES [address] [phone] * PHOSPHORUS BLOOD (11/18/2016 12:02 AM CDT) Phosphorus 4.3 2.3 - 4.7 mg/dL [facility] Blood specimen (specimen) BLOOD SPECIMEN / Unknown 11/18/2016 12:02 AM CDT 11/18/2016 12:05 AM CDT Amy Hu MD LAB - CHEMISTRY ORD ERABLES Performing Organization Address [facility] Co de Phone Number [address] [phone] * (ABNORMAL) MAGNESIUM BLOOD (11/18/2016 12:02 AM CDT) Magnesium 1.5(L) 1.6 - 2.6 mg/dL [facility] Blood specimen (specimen) BLOOD SPECIMEN / Unknown 11/18/2016 12:02 AM CDT 11/18/2016 12:05 AM CDT Amy Hu MD LAB - CHEMISTRY ORD ERABLES Performing Organization Address [facility] Co de Phone Number [address] [phone] * ACT - POCT (IP) [facility] (11/17/2016 8:48 AM CDT) Only the most recent of3 resultswithin the time period is included. Activated Clotting Time 230 sec [facility] Blood specimen (specimen) 11/17/2016 8:48 AM CDT Amy Hu MD LAB - POINT OF CARE ORDERABLES Performing Organization Address [facility] Co de Phone Number [facility] * PATHOLOGY TISSUE (11/17/2016 8:21 AM CDT) Surgical Pathology Tissue ACCESSION No: [id number] CLINICAL HISTORY: RIGHT carotid artery occlusion, right carotid stenosis. FINAL DIAGNOSIS: LYMPH NODES, RIGHT NECK, EXCISION (A): - ??NO PATHOLOGIC DIAGNOSIS (2 NODES) ARTERY, RIGHT CAROTID, PLAQUE, ENDARTERECTOMY (B): - ??INTIMAL ATHEROSCLEROTIC PLAQUE GROSS DESCRIPTION: The specimens are received fixed in formalin in two containers. ??Both containers are labeled with the patient's name, Patricia Valdez. Specimen A, right neck lymph node , consists of two roughly oval-shaped portions of purple-pink to pink-yellow tissue measuring 1.3 x 0.5 x 0.4 cm, and 0.6 x 0.5 x 0.3 cm. ??The specimen is submitted entirely in cassette A1. Specimen B, right carotid plaque perm , consists of a curled segment of yellow-gilliland fibrous tissue measuring 2.6 x 1.2 x 1.0 cm. ??The specimen is sectioned revealing white-gilliland fibrous tissue with scattered areas of yellow calcification. Coordinate Measuring Machine Programmer sections are submitted in cassette B1 following decalcification. MNR/edk MICROSCOPIC DESCRIPTION: ?The two right neck lymph nodes (A) have normal architecture with germinal centers, consistent with reactive nodes. The plaque (B) contains intima with abundant atherosclerotic plaque. ZONING ASSISTANT/business objects architect The performance characteristics of all immunohistochemical and indirect immunofluorescence stains (if any) cited in this report were determined by the Histopathology Laboratory of [facility].?? Some of these tests were developed by our own laboratory and have not been cleared or approved by the US Food and Drug Administration.?The FDA does not require this test to go through premarket FDA review.?These tests are used for clinical purposes. They should not be regarded as investigational or for research.?? This laboratory is certified under the Clinical Laboratory Improvement Amendments (CLIA) as qualified to perform high complexity clinical laboratory testing. This case has been personally reviewed and interpreted by the attending (teaching) pathologist. Final Diagnosis performed by Rubia Morataya MD. Electronically signed 11/18/2016 [facility] ([place]) Biopsy, NOS ENTIRE LYMPH NODE / Unknown 11/17/2016 8:21 AM CDT 11/17/2016 1:07 PM CDT Narrative [facility] ([place]) - 11/18/2016 2:26 PM CDT Pre-op diagnosis: Righ carotid stenosis Amy Hu MD LAB - PATHOLOGY/CYT OLOGY ORDERABLES [facility] ([place]) * TYPE + SCREEN PANEL (11/17/2016 7:41 AM CDT) Only the most recent of2 resultswithin the time period is included. Typem O POS [facility] Antibody Screen NEG [facility] Blood specimen (specimen) 11/17/2016 7:41 AM CDT 11/17/2016 7:41 AM CDT Amy Hu MD LAB - BLOOD BANK OR DERABLES Performing Organization Address City/[facility]/ZIP Co de Phone Number [facility] [address] * (ABNORMAL) BLOOD GASES ART (11/17/2016 6:55 AM CDT) Pathologist [facility] EPOC Potassium POCT 4.8(H) 3.5 - 4.5 mmol/L [facility]AL[facility]ritz ([place]) Comment: Sample Type: Venous Decator Operator: ELMER ??LEANNE 11/17/2016 6:55 AM CDT Amy Hu MD LAB - BLOOD GASES O RDERABLES Performing Organization Address City/[facility]/ZIP Co de Phone Number [facility] ([place]) * EKG 12-LEAD (11/12/2016 12:00 AM CDT) Pathologist [facility] EKG [facility] Comment: Exam Date/Time: ?? Nov 12 2016 12:33:55 Test Reason : sob, htn Blood Pressure : / mmHG Vent. Rate : 067 BPM ? Atrial Rate : 067 BPM ?? P-R Int : 132 ms ?QRS Dur : 096 ms ?QT Int : 378 ms ? P-R-T Axes : 063 038 039 degrees ?? QTc Int : 399 ms Normal sinus rhythm Normal ECG No previous ECGs available Confirmed by MD Viviane, Alannah ([id number]), loan expeditor RANDALL BRAY ([id number]) on 12/16/2016 7:25:12 PM Referred By: REFERRING NO ? Confirmed By:Alannah Pan MD 11/12/2016 Mattie Guardado STRIPER MACHINE-CURRICULUM DEVELOPMENT COORDINATOR ECG ORDER ACACIA [facility] Care Teams Linux Network Administrator Relationship Specialty Start Date End Date Cedric Nguyen MD [address] [place] [address] PCP - General 09/17/16
--- OUTSIDE RECORDS SUMMARY | 2024-05-24 20:18 | XMS_ITS | Encounter Summary ---
Author Organization [facility] Address [address] [place] [address] Care Team Providers Care Press Hand Supervisor Name Role Phone Cedric Nguyen MD Primary Care Provider [phone] Encounter Details Date Type Department Care Team (Late st Contact Info) Description 02/25/2017 Hospital Outpatient Visit [facility] [address] [place] [address] Julieta Osorio, GAS DISTRIBUTION SUPERVISORPARKLAND HEALTH CENTER [address] [address] Discharge Disposition: Home or Self Care Social [...] on filedocumented in this encounter Care Teams Press Hand Supervisor Relationship Specialty Start Date End Date Cedric Nguyen MD [address] [place] [address] PCP - General 09/17/16 documented as of this encounter
--- OUTSIDE RECORDS SUMMARY | 2024-05-24 20:18 | XMS_ITS | Referral Summary ---
Author Organization [facility] [employer] Address [address] [place] [address] Care Team Providers Care Ultrasound Tech Name Role Phone Cedric Nguyen MD Primary Care Provider [phone] Source Comments [facility] [employer],non-owned Affiliates and Associated Physician Practices is amultiple site organization consisting of ambulatory clinics and hospital sitesin [place], [place], [place] and [place]. This disclosure is being madepursuant to the Care Everywhere program and may not contain all information available regarding this patient. Last updated 18.[facility] [employer] Medications * Be aware that medications may [...] 08/19/2017 11:46 AM CDT Plan of Treatment Not on file Care Teams Ultrasound Tech Relationship Specialty Start Date End Date Cedric Nguyen MD [address] [place] [phone] [facility] - General 09/17/16
--- OUTSIDE RECORDS SUMMARY | 2024-05-24 20:18 | XMS_ITS | Encounter Summary ---
Author Organization [facility] Address [address] [place] [address] Care Team Providers Care Certified Peer Specialist Name Role Phone Cedric Nguyen MD Primary Care Provider [phone] Encounter Details Date Type Department Care Team (Latest Contact Info) Description 02/25/2017 [facility] [address] [phone] Discharge Disposition: Home or Self Care Social [...] Diagnosis Comments VAS CAROTID DUPLEX BILATERAL Routine 02/25/2017 9:06 AM CDT documented in this encounter Results * VAS CAROTID DUPLEX BILATERAL (02/25/2017 9:06 AM CDT) Anatomical Region Laterality Modality Other Julieta Osorio WEB APPLICATIONS DEVELOPER-COUNTER CONTROL OPERATOR VASCULAR LAB OR DERABLES documented in this encounter Visit Diagnoses Diagnosis Occlusion and stenosis of right carotid artery Occlusion and stenosis of carotid artery without mention of cerebral infarction Occlusion and stenosis of left carotid artery Occlusion and stenosis of carotid artery without mention of cerebral infarction documented in this encounter Care Teams Certified Peer Specialist Relationship Specialty Start Date End Date Cedric Nguyen MD [address] [place] [address] PCP - General 09/17/16 documented as of this encounter
--- OUTSIDE RECORDS SUMMARY | 2024-05-24 20:19 | XMS_ITS | Encounter Summary ---
Author Organization [facility] Address [address] [facility]. [place], [place] [id number] [place] [id number] Care Team Providers Care Tele Tech Name Role Phone Cedric Hercules MD Primary Care Provider [phone] Reason for Referral * (Routine) - Canceled Specialty Diagnoses / Procedures Referred By Contac t Referred To Contact Procedures OT Eval and Treat [facility] [address] [place] [address] [place] [address] Phone: tel: Referral ID Status Reason Start Date Expiration Date V isits Requested Visits Authorized [id number] Canceled 09/17/2021 10/17/2022 1 1 * (Routine) - Canceled Specialty Diagnoses / Procedures Referred By Contac t Referred To Contact Procedures PT Eval and Treat [facility] [address] [place] [address] [place] [address] Phone: tel: Referral ID Status Reason Start Date Expiration Date V isits Requested Visits Authorized [id number] Canceled 09/17/2021 10/17/2022 1 1 * Imaging (Urgent) - Closed Specialty Diagnoses / Procedures Referred By Contac t Referred To Contact RADIOLOGY Procedures USE E[place]OCARDIO[place] [address] Phone: tel: fax: Referral ID Status Reason Start Date Expiration Date Visits Re quested Visits Authorized [id number] Closed 09/16/2021 10/16/2022 1 1 * Imaging (Emergency) - Closed Specialty Diagnoses / Procedures Referred By Awa foley Referred To Contact RADIOLOGY Procedures CTA CHEST Shilpa Chung MD [address] [place] [address] Phone: tel: fax: Referral ID Status Reason Start Date Expiration Date Visits Re quested Visits Authorized [id number] Closed 09/16/2021 10/16/2022 1 1 Reason for Visit * Reason Comments Shortness Of Breath * Auth/Cert Specialty Diagnoses / Procedures Referred By Awa foley Referred To Contact Diagnoses CHF (congestive heart failure) ([facility] HHS/HCC) Pneumonia Hypoxia Respiratory failure with hypoxia ([facility] HHS/HCC) Respiratory failure with hypoxia ([facility]) Procedures NONE Referral ID Status Reason Start Date Expiration Date Visits Re quested Visits Authorized [id number] 1 1 Encounter Details Date Type Department Care Team (Late st Contact Info) Description 09/16/2021 4:58 AM CDT - 09/19/2021 11:37 AM CDT Hospital Encounter [facility] [address] [place] [address] Shilpa Chung MD [address] [place], [place] [address] [phone] Divya Dalal MD [place], [place] [address] [phone] Devon Ramires MD [address] [place] [address] Shortness Of Breath Discharge Disposition: [facility] Facility Social History Tobacco Use Types Packs/Day Years Used Date Smoking Tobacco: Never Smokeless Tobacco: Never Alcohol Use Standard Drinks/Week Comments Never 0 (1 standard drink = 0.6 oz pur e alcohol) Comments No Sex and Gender Information Value Date Recorded Sex Assigned at Not on file Legal Sex Female 10:50 PM CDT Gender Identity Not on file Sexual Orientation Not on file COVID-19 Exposure Response Date Recorded In the last 10 days, have yo u been in contact with someone who was confirmed or suspected to have Coronavirus/COVID-19? No / Unsure 09/16/2021 7:55 AM CDT documented as of this encounter Last Filed Vital Signs Vital Sign Reading Time Taken Comments Blood Pressure 125/54 09/19/2021 11:32 AM CDT Pulse 77 09/19/2021 11:32 AM CDT Temperature 36.8 ??C (98.3 ??F) 09/19/2021 1 1:32 AM CDT Respiratory Rate 16 09/19/2021 11:3 2 AM CDT Oxygen Saturation 91% 09/19/2021 11: 32 AM CDT Inhaled Oxygen Concentration - - Weight 82.5 kg (181 lb 14.1 oz) 09/18/2021 5:31 AM CDT Height 162.6 cm (5' 4 ) 09/16/2021 7:47 AM CDT Body Mass Index 31.22 09/16/2021 7:47 AM CDT documented in this encounter Functional Status * Question Answer Date of Assessment Author Status Do you have serious difficulty walking or climbing stairs? Yes 09/16/2021 8:09 AM CDT María Dee RN A ctive * Question Answer Date of Assessment Author Status Do you have difficulty dressing or bathing? No 09/16/2021 8:09 AM CDT María Dee RN Active Because of a physical, mental, or emotional condition, do you have difficulty doing errands alone such as visiting a doctor's office or shopping? Yes 09/16/2021 8:09 AM CDT María Dee RN Ac tive * RETIRED Are you deaf or do you have serious difficulty hearing Answer Date of Assessment Author Status No 09/16/2021 8:09 AM CDT Activ e * RETIRED Are you blind or do you have serious difficulty seeing, even when wearing glasses? Answer Date of Assessment Author Status No 09/16/2021 8:09 AM CDT Activ e * Do you have serious difficulty walking or climbing stairs? Answer Date of Assessment Author Status Yes 09/16/2021 8:09 AM María Brito RN Active * Do you have difficulty dressing or bathing? Answer Date of Assessment Author Status No 09/16/2021 8:09 AM María Brito RN Active * Because of a physical, mental, or emotional condition, do you have difficulty doing errands alone such as visiting a doctor's office or shopping? Answer Date of Assessment Author Status Yes 09/16/2021 8:09 AM María Brito RN Active documented as of this encounter Mental Status * Question Answer Entry Date Author Status Because of a physical, mental, or emotional condition, do you have serious difficulty concentrating, remembering, or making decisions? Yes 09/16/2021 8:09 AM María Brito RN Active * Because of a physical, mental, or emotional condition, do you have serious difficulty concentrating, remembering, or making decisions? Answer Entry Date Author Status Yes 09/16/2021 8:09 AM María Brito RN Active documented in this encounter Discharge Summaries * Devon Ramires MD - 09/19/2021 10:57 AM CDT Images from the original note were not included. Hospitalist Discharge Summary Patient ID: [id number]. [id number]. [id number] Admit date: 09/16/2021 4:58 AM Discharge date: 09/19/21 Admitting Physician: Divya Dalal MD Primary Care Physician: CEDRIC HERCULES MD Discharge Physician: DEVON RAMIRES MD Discharge Diagnoses: 1. Acute respiratory failure with hypoxia 2. Symptomatic microcytic anemia secondary to severe iron deficiency 3. Acute HFpEF likely exacerbated by #2 4. Severe iron deficiency anemia 5. Hypervolemic hypoosmolar hyponatremia 6. Thrombophlebitis left upper extremity 7. Hypokalemia 8. Diabetes mellitus type 2 9. Hypothyroidism Hospital Course: 81-year-old female with a known history of diabetes mellitus type 2, hypertension, dementia admitted inpatient for 1122 with symptomatic anemia, acute respiratory failure with hypoxia, acute HFpEF. Found to have severe iron deficiency, known iron deficiency anemia. Patient declines endoscopy, no overt bleeding. Responded appropriately with PRBC transfusion, hemoglobin stable. Given IV iron replacement as well. Discharge on oral iron replacement. Volume overloaded, hyponatremic. Diuresed. Likely exacerbated by the severe anemia. Echocardiogram showing HFpEF. Discharge off diuretic, will need to have fluid status monitored at the detention facility. Left upper extremity thrombophlebitis, warm compress at the detention facility. Discharged Condition: Stable Code Status: No Order Indication for Admission: Chief Complaint Patient presents with ??? Shortness Of Breath Readmission/Mortality Score at discharge: Low 0-28, Medium 29-58, High >59 LACE+ Score Readmission Score: 69 Male Patient: Urgent Admission: 15 Discharge Institution: Length of Stay: 4 Alternative Level of Care Status: 0 ED Visits in Previous 6 Months: 0 Elective Admission in Previous Year: 0 Comorbidity Score (by age & number of urgent admissions): 50 Consults: None Operations/Procedures (if any): Significant Diagnostic Studies: Recent Labs Lab 09/16/21 0508 09/16/21 1936 09/17/21 0458 09/18/21 0348 09/19/21 0315 WBC 12.4* 10.3* 8.3 10.8* 11.6* RBC 3.39* 4.11 3.93 4.10 4.29 HGB 5.8* 8.4* 8.1* 8.3* 8.7* HCT 21.7* 29.4* 27.8* 29.6* 31.4* MCV 64.0* 71.5* 70.7* 72.2* 73.2* MCH 17.1* 20.4* 20.6* 20.2* 20.3* MCHC 26.7* 28.6* 29.1* 28.0* 27.7* PLT 609* 548* 502* 496* 516* RDW 19.1* 25.5* 24.9* 25.2* 26.2* MPV 8.4* 8.6* 8.8 8.6* 8.6* NEUC 9.29* 7.13* 5.30 7.01* 7.85* LYMC 1.71 1.71 1.60 1.98 1.80 MONOC 1.08* 1.15* 1.05* 1.34* 1.37* EOSC 0.11 0.11 0.19 0.30 0.32 BASOC 0.14* 0.14* 0.12* 0.14* 0.14* Recent Labs Lab 09/16/21 0508 09/17/21 0458 09/18/21 0348 09/19/21 0315 NA 125* 134* 135* 134* K 3.8 3.3* 3.7 3.5 CL 94* 99 100 100 CO2 25.0 31.0 29.0 28.0 AGAP 6.0 4.0* 6.0 6.0 BUN 17 15 19* 17 CR 0.95 0.97 1.04* 1.08* GFRNON 57* 56* 51* 49* GFR 66* 64* 59* 57* GLU 151* 105 92 105 CA 8.1* 8.1* 7.9* 8.3* TP 7.4 -- -- -- ALB 3.6 -- -- -- TBIL 0.6 -- -- -- ALKP 121* -- -- -- AST 25 -- -- -- ALT 31 -- -- -- Recent Labs Lab 09/16/21 0515 TSH 2.110 Recent Labs Lab 09/16/21 0508 INR 1.1 PTT 36.2 Recent Labs Lab 09/16/21 0508 TROP 7 No results for input(s): LACTICACID, PROCT in the last 168 hours. No results for input(s): PH, PCO2, PO2, [id number], BICARBWB, BASEDEFICIT, BASEEXCESS in the [id number] hours. No results found for this or any previous visit. Radiology Reports : No results found. Objective: Filed Vitals: 09/18/21 1823 09/18/21 2154 09/19/21 0515 09/19/21 0740 BP: 127/54 129/56 134/61 135/79 Pulse: 96 80 61 75 Resp: 16 16 16 18 Temp: 98 ??F (36.7 ??C) 97.9 ??F (36.6 ??C) 98.1 ??F (36.7 ??C) 97.8 ??F (36.6 ??C) TempSrc: Oral Oral Oral SpO2: 98% 95% 91% 95% Weight: Height: Physical Exam: GENERAL: NAD, alert and cooperative HEENT: NC/AT. EOMI NECK: Supple, trachea midline CVS: Normal S1 and S2, no murmurs appreciated RESP: CTAB, no wheeze GI: Soft, nondistended, nontender. No guarding EXTREMITIES: No edema NEURO: CN II-XII grossly intact. SKIN: Left upper extremity about 1 x 1-1/2 inch triangle shaped thrombophlebitis above where she had a IV PSYCHIATRIC: Mood stable, normal affect Discharge Medications: Medication List START taking these medications Morning Afternoon Evening Bedtime As Needed ferrous sulfate (65 mg elemental) 325 (65 FE) MG tablet Take 1 tablet (325 mg total) by mouth 2 (two) times a day. CONTINUE taking these medications Morning Afternoon Evening Bedtime As Needed amLODIPine 10 MG tablet Commonly known as: NORVASC Take 10 mg by mouth daily. Last time this was given: 10 mg on September 19, 2021 8:49 AM atorvastatin 10 MG tablet Commonly known as: LIPITOR Take 10 mg by mouth daily. Last time this was given: 10 mg on September 19, 2021 8:48 AM citalopram 20 MG tablet Commonly known as: CeleXA Take 20 mg by mouth daily. Last time this was given: 20 mg on September 19, 2021 8:48 AM HYDROcodone-acetaminophen 5-325 MG tablet Commonly known as: NORCO Take 1 tablet by mouth every 4 (four) hours as needed for Pain. Last time this was given: 1 tablet on September 16, 2021 5:46 PM iron polysaccharides plus vitamins 50-100 MG Caps Take 1 capsule by mouth daily with breakfast. levothyroxine 137 MCG tablet Commonly known as: SYNTHROID Take 137 mcg by mouth every morning. Last time this was given: 137 mcg on September 19, 2021 6:00 AM LORazepam 0.5 MG tablet Commonly known as: ATIVAN Take 0.5 mg by mouth every 6 (six) hours as needed for Anxiety. Last time this was given: 0.5 mg on September 18, 2021 7:39 PM omeprazole 20 MG capsule Commonly known as: PriLOSEC Take 20 mg by mouth daily. pioglitazone 30 MG tablet Commonly known as: ACTOS Take 30 mg by mouth daily. valACYclovir 1 g tablet Commonly known as: VALTREX Take 1,000 mg by mouth 2 (two) times daily as needed. Medications Discontinued during this hospitalization: Medications Discontinued During This Encounter Medication Reason ??? sodium chloride 0.9% infusion Ordering Physician ??? sodium chloride 0.9% infusion Ordering Physician ??? sodium chloride 0.9% infusion Ordering Physician ??? azithromycin (ZITHROMAX) 500 mg in sodium chloride 0.9 % 250 mL IVPB ??? furosemide (LASIX) injection 40 mg Ordering Physician Patient Instructions: Activity: as tolerated. Diet: Diet general Appropriate; 2 GM NA; 75g/meal Follow-up appointments: No future appointments. Cedric Hercules MD [address] [id number] Follow up TIME SPENT ON DISCHARGE: I have spent 35 minutes performing discharge services today. This time includes my time spent on this note preparation including discharge documentation, discharge instructions, final orders, ordering prescriptions, and communication to social work. DEVON RAMIRES MD 09/19/2021 11:00 AM documented in this encounter Discharge Instructions * Discharge Instructions* Analy Moss RN - 09/19/2021 11:21 AM CDT PATIENT TO DISCHARGE TO [facility]. Diet: General; 2 gm NA, carb restricted to 75g/meal Activity: as tolerated PT/OT eval and treat. Last dose tylenol: 09/19/21 at 0911. Last dose [place] 5/325: 09/16/21 at 5:46pm. Last dose lorazepam: 09/18/21 at 7:39 pm. NOTIFY DOCTOR IF YOU EXPERIENCE ANY OF THE BELOW SIGNS OR SYMPTOMS -CHEST PAIN -DIARRHEA WITH ANTIBIOTIC USE -EXCESSIVE BLEEDING -FEVER OVER 100 FOR 24 HOURS -FEVER OVER 101 -PAIN MED NOT EFFECTIVE -PERSISTENT VOMITING -SHORTNESS OF BREATH -URINARY BURNING OR FREQUENCY -PAIN OR REDNESS AT YOUR IV SITE -ABDOMINAL PAIN -EXCESSIVE WOUND DRAINAGE -REDNESS AT YOUR OPERATIVE SITE DO NOT TAKE PAIN MEDS ON AN EMPTY STOMACH. NO DRINKING ALCOHOL OR DRIVING WHILE TAKING PAIN MEDS. PAIN MEDS ARE CONSTIPATING, INCREASE FLUIDS AND GET AN OVER THE COUNTER STOOL SOFTENER AND/OR A MILD LAXATIVE IF NEEDED * Attachments The following attachments cannot be sent through Care Everywhere. * Heart Failure Discharge Instructions, Adult (Norwegian) * Community-Acquired Pneumonia Discharge Instructions, Adult (Norwegian) documented in this encounter Medications at Time of Discharge amLODIPine 10 MG tablet Take 10 mg by mouth daily. atorvastatin 10 MG tablet Take 10 mg by mouth daily. citalopram 20 MG tablet Take 20 mg by mouth daily. ferrous sulfate, 65 mg elemental, 325 (65 FE) MG tablet Take 1 tablet (325 mg total) by mouth 2 (two) times a day. 60 tablet 09/19/2021 HYDROcodone-acetamino phen 5-325 MG tablet Take 1 tablet by mouth every 4 (four) hours as needed for Pain. iron polysaccharides plus vitamins 50-100 MG Cap Take 1 capsule by mouth daily with breakfast. levothyroxine 137 MCG tablet Take 137 mcg by mouth every morning. LORazepam 0.5 MG tablet Take 0.5 mg by mouth every 6 (six) hours as needed for Anxiety. omeprazole 20 MG capsule Take 20 mg by mouth daily. pioglitazone 30 MG tablet Take 30 mg by mouth daily. valACYclovir 1 g tablet Take 1,000 mg by mouth 2 (two) times daily as needed. documented as of this encounter Progress Notes * ALEXANDRA Rockwell - 09/19/2021 11:22 AM CDT 09/19/21 1122 Discharge Planning Support Systems Family Members Type of Residence Rehab facility Patient expects to be discharged to: Care Home Patient will discharge to [facility]. Family will provide transportation. All case management needs have been met. * ALEXANDRA Rockwell - 09/19/2021 8:25 AM CDT Patient accepted at [facility]. COVID-19 test results faxed to facility. Pt daughter will provide transportation to facility at discharge. 11:15am: IMM completed and placed in chart. * Adry Agee RN - 09/19/2021 12:23 AM CDT Problem: Pain Goal: Patient's pain/discomfort is manageable Description: Assess and monitor patient's pain using appropriate pain scale. Collaborate with interdisciplinary team and initiate plan and interventions as ordered. Re-assess patient's pain level 30 - 60 minutes after pain management intervention. Outcome: Progressing Problem: Safety Goal: Patient will be injury free during hospitalization Description: Assess and monitor vitals signs, neurological status including level of consciousness and orientation. Assess patient's risk for falls and implement fall prevention plan of care and interventions per hospital policy. Ensure arm band on, uncluttered walking paths in room, adequate room lighting, call light and overbed table within reach, bed in low position, wheels locked, side rails up per policy, and non-skid footwear provided. Outcome: Progressing Problem: Daily Care Goal: Daily care needs are met Description: Assess and monitor ability to perform self care and identify potential discharge needs. Outcome: Progressing Problem: Psychosocial Needs Goal: Demonstrates ability to cope with hospitalization/illness Description: Assess and monitor patients ability to cope with his/her illness. Outcome: Progressing Goal: Collaborate with patient/family/caregiver to identify patient specific goals for this hospitalization Outcome: Progressing Problem: Discharge Barriers Goal: Patient's discharge needs are met Description: Collaborate with interdisciplinary team and initiate plans and interventions as needed. Outcome: Progressing Problem: Reduced risk for falls/injury Goal: Reduced Risk for Falls/Injury Outcome: Progressing Goal: Reduced Risk of Confusion (Acute vs Chronic) Outcome: Progressing Goal: Reduced Risk of Symptomatic Depression Outcome: Progressing Goal: Reduced Risk of Altered Elimination Outcome: Progressing Goal: Reduced Risk of Dizziness/Vertigo/Balance Outcome: Progressing Goal: Reduced Risk of Polypharmacy Outcome: Progressing Problem: Discharge Planning Goal: Knowledge of discharge instructions Outcome: Progressing Problem: Activity Intolerance Goal: Improved activity tolerance Outcome: Progressing Problem: Cardiac Output - Decreased Goal: Cardiac output within specified parameters Outcome: Progressing Problem: Fluid Volume - Excess Goal: Absence of fluid overload signs and symptoms Outcome: Progressing Goal: Electrolytes within specified parameters Outcome: Progressing Problem: Gas Exchange - Impaired Goal: Adequate oxygenation Outcome: Progressing Problem: Mood - Altered Goal: Alleviation of anxiety Outcome: Progressing Goal: Decrease in depressive symptoms Outcome: Progressing Problem: Venous Thromboembolism - Risk of Goal: Absence of deep venous thrombosis Outcome: Progressing Problem: Venous Thromboembolism - Risk of Goal: Absence of venous thromboembolism Outcome: Progressing * Maged Xie, PT STUDENT - 09/18/2021 11:48 AM CDT 09/18/21 1142 Therapy Visit Ordering Provider Divya Dalal MD PT Received On 09/18/21 Subjective Patient in bed and agreeable to therapy; family in room. Patient displays slight confusion this morning. Reason for admission CHF Verified Two Patient Identifiers Yes Patient consents to therapy Yes Acute Inpatient PT Time Calculation PT Start Time 1043 PT Stop Time 1057 PT Time Calculation (min) 14 min Precautions General Precautions Bed Alarm;Chair Alarm;Fall Risk PPE Used Face mask;Gloves Pain Pain No Activity Tolerance Endurance Tolerates 10 - 20 min activity with rests Endurance Quality Fair Limiting Factors to Endurance Acute deconditioning Activity Tolerance Comments Patient tolerates ambulation in hallway Cognition Overall Cognitive Status Impaired Arousal/Alertness Appropriate responses to stimuli Other (Comment) patient makes unsolicited comments, min confusion noted. easily distracted. Bed Mobility Supine to Sit Modified independence Sit to Supine SBA/supervision TRANSFERS Sit to Stand Modified independence Other (Comment) no assistive device Gait Gait Assistance Contact guard assist (gait belt) Assistive Device None Distance Ambulated (ft) 300 ft (brief rest at window) Other (Comment) steady gait with no LOB on this date Recommendation PT Recommendation PT during hospitalization;Home with assistance;24 hour supervision/assist PT Equipment Recommended To Be Determined Plan PT Treatments/Interventions Gait Training PT Frequency Daily PT - Next Appointment 09/19/21 End of Session End of Session Safety Bed alarm set/activated;Call light within reach;Family/friend present with patient;Nursing aware of session End of Session Comment Patient returned to bed following session, OT came into room at end of treatment. MAGED XIE, PT STUDENT Cosigned by Samira Birch PTA at 09/18/2021 11:53 AM CDT * Fly Mckoy Justin, OTR - 09/18/2021 10:56 AM CDTSummary: OT TREATMENT Occupational Therapy Treatment Note Activity recommendations for nursing staff: up to bathroom with assistance Discharge Recommendation: snf Objective: 09/18/21 1400 Therapy Visit OT Received On 09/18/21 OT Evaluation Completed on 09/17/21 Treatment Day 2 Reason for admission CHF Ordering Provider Divya Dalal MD Verified Two Patient Identifiers Yes Patient consents to therapy Yes Acute Inpatient OT Time Calculation OT Start Time 1056 OT Stop Time 1106 OT Time Calculation (min) 10 min Precautions General Precautions Bed Alarm;Chair Alarm;Fall Risk PPE Used Face mask;Gloves Subjective Subjective Per RN pt okay to see this date. Pt supine in bed upon OT entry, with family seated at bedside. Pt states that she does not want to participate in mobility or ADLs this date, but is agreeable to seated bed level exercises Pain Pain No Activity Tolerance Endurance Tolerates 10 - 20 min activity with rests Endurance Quality Fair Limiting Factors to Endurance Acute deconditioning Activity Tolerance Comments Pt completes bed level exercises Cognition Overall Cognitive Status Impaired Arousal/Alertness Appropriate responses to stimuli Other (Comment) patient makes unsolicited comments, min confusion noted. easily distracted. Bed Mobility Other (Comment) seated upon OT entry and exit Functional Transfers Other (Comment) Pt refused functional transfers Interventions R Shoulder AROM Flexion;Extension;ABduction;ADduction;Elevation L Shoulder AROM Flexion;Extension;ABduction;ADduction;Elevation R Elbow AROM Flexion;Extension L Elbow AROM Flexion;Extension Other (Comment) BUE X10 REPS X1SET OT Assessment OT Assessment Pt continues to demonstrate decreased endurance and strength impacting her ability tocomplete ADLs and IADLs. Pt would benefit from continued skilled OT treatment to increase independence and safety during functional transfers and daily taks.s Recommendation OT Recommendation OT during hospitalization;OT at detention facility;24 hour supervision/assist OT Equipment Recommended To Be Determined Plan OT Treatment/Intervention Self-care training;Therapeutic exercises;Therapeutic activities;Functional activity;Safety Progress Progressing toward goals OT Frequency 3 times/week;5 times/week OT - Next Appointment 09/19/21 If this is the last treatment note, it will serve as the discharge summary Yes End of Session End of Session Safety Bed alarm set/activated;Call light within reach;Family/friend present with patient;Nursing aware of session;Transfer status education Interdisciplinary Collaboration RN CHERYL PAREDES * ALEXANDRA Rockwell - 09/18/2021 10:40 AM CDT BEATER ROOM SUPERVISOR spoke with [facility] store protection specialist who reports that admissions is not in office today. Facility reports that patient accepted at facility tomorrow. Pt daughter will transport patient to facility. Facility will need COVID test results prior to admission. BEATER ROOM SUPERVISOR will coordinateplan for discharge. 3:00pm: Updated notes faxed to [facility]. * Divya Dalal MD - 09/18/2021 10:16 AM CDT Hospitalist Service Progress Note Chief Complaint : Shortness Of Breath Subjective: 81-year-old female with multifactorial SOB Patient reports doing well SOB resolved. No Known Allergies ROS: 14 point ROS neg except as noted per HPI. Objective: Filed Vitals: 09/17/21 2357 09/18/21 0531 09/18/21 1054 09/18/21 1400 BP: 119/52 132/63 128/71 126/59 Pulse: 66 76 72 Resp: 20 18 16 18 Temp: 98.2 ??F (36.8 ??C) 99.1 ??F (37.3 ??C) 98 ??F (36.7 ??C) TempSrc: Oral Oral Oral SpO2: 98% 94% 97% 97% Weight: 82.5 kg (181 lb 14.1 oz) Height: Physical Exam: General: Pleasant elderly female lying in bed in no acute cardiopulmonary painful distress Eyes: Mucous membranes pale and moist, sclera anicteric ENT: No oropharyngeal lesions, neck supple Lungs: Air entry equal bilaterally, vesicular breath sounds, bibasal crepitations rhonchi or wheeze Cardiovascular: Normal S1 and S2, no murmurs rubs or gallops Abdomen: Soft, nontender, normoactive bowel sounds Extremities: No edema, Neurological: Alert and oriented x2, nonfocal Psych: Mood-euthymic, affect-appropriate Skin: Skin color, texture, turgor normal. No rashes or lesions ?? LAB: Recent Labs Lab 09/16/21 0508 09/17/2145709/18/21347 NA 125* 134* 135* K 3.8 3.3* 3.7 CL 94* 99 100 CO2 25.0 31.0 29.0 AGAP 6.0 4.0* 6.0 BUN 17 15 19* CR 0.95 0.97 1.04* GFRNON 57* 56* 51* GFR 66* 64* 59* GLU 151* 105 92 CA 8.1* 8.1* 7.9* MAGNESIUM -- 2.1 -- Recent Labs Lab 09/16/21 0508 09/16/21 1936 09/17/2145709/18/21347 WBC 12.4* 10.3* 8.3 10.8* RBC 3.39* 4.11 3.93 4.10 HGB 5.8* 8.4* 8.1* 8.3* HCT 21.7* 29.4* 27.8* 29.6* MCV 64.0* 71.5* 70.7* 72.2* MCH 17.1* 20.4* 20.6* 20.2* MCHC 26.7* 28.6* 29.1* 28.0* PLT 609* 548* 502* 496* RDW 19.1* 25.5* 24.9* 25.2* MPV 8.4* 8.6* 8.8 8.6* No results for input(s): CPK in the last 168 hours. Recent Labs Lab 09/16/21 050 INR 1.1 PTT 36.2 Invalid input(s): ABG Recent Labs Lab 09/16/21 0508 TROP 7 No results for input(s): PH, PCO2, PO2, X0YIVAJHMYSI, BICARBWB, BASEDEFICIT, BASEEXCESS in the prsl864 hours. IMAGING: CTA CHEST Result Date: 09/16/2021 CTA CHEST WITH CONTRAST CLINICAL INDICATION: Suspected pulmonary embolus COMPARISON: None. TECHNIQUE: 55 mL Isovue-370 administered intravenously. CTA images of the chest were obtained. Three-dimensional volume reconstructions were generated. CT dose lowering techniques were used, to include: automated exposure control, adjustment for patient size, and or use of iterative reconstruction. FINDINGS: CTA: No pulmonary arterial filling defect. Heart size normal without pericardial effusion. Mediastinal vessels normal in caliber and patency. Mediastinum: Mildly enlarged mediastinal nodes measuringup to 8 mm in short axis. Central airways are patent. Small hiatal hernia. Visualized thyroid gland is normal. Lungs and pleura: Bilateral pleural effusions with adjacent patchy areas of consolidation and groundglass opacity. Central/right perihilar groundglass opacities are also noted with diffuseinterlobular septal thickening. Upper abdomen: Granulomatous calcifications in the spleen. Body wall: No acute abnormality. Bones: No acute osseous abnormality. IMPRESSION: Findings suggestive of pulmonary edema with bilateral pleural effusions. However, an infectious or inflammatory process could also have this appearance in the appropriate clinical setting. No CT evidence of acute pulmonary embolus. Electronically signed by: Angelica Boudreaux 09/16/2021 7:01:00 AM USE ECHOCARDIOGRAM Result Date: 09/17/2021 Echocardiography Report Pat.Name: INDY VALDEZ Pat.ID: [id number] .Date: 09/17/2021 Refer.: [id number], YOU SHILPA H Exam Time: 10:20:00 AM Study Type:ECHO WITH CARDIAC DOPPLER COMP Height: 64in Weight: 139.71lb BSA: 1.68 m2 Age: 2 1940,81Y Sex: FEMALE BP: 132/61 Sonogrphr: Janel Starr SANGEETA Pat. Stat.:Inpatient Room: [facility] CPT - 4: 60624 Reason for Study: Heart failure, IE 33-1SN G8Q135 / X5-1 SN B22QQM Procedures: 2D, M-mode, Doppler, Color Flow, Definity was used to enhance endocardial definition. ++++++++++++++++++++++++++++++++++++ SUMMARY: +++++++++++++++++++++++++++++ +++++++ The left ventricular size is normal. Estimated left ventricular ejection fraction is 65-70%. Left ventricular diastolic function is abnormal (grade 2 - pseudonormal pattern). The peak pulmonary artery systolic pressure is estimated to be approximately 32 mmHg. Valves normal ++++++++++++++++++++++++++++++++++++ FINDINGS: ++++++++++++++++++++++++++++++++++++ LV: The left ventricular size is normal. The left ventricular systolic function is normal. Estimated left ventricular ejection fraction is 65-70%. The septal E/e' is indeterminate at 8- 15. The lateral E/e' is elevated at >11. Left ventricular diastolic function is abnormal (grade 2 - pseudonormal pattern). RV: The right ventricular size is normal. Right ventricular systolic function is normal. TAPSE = 23.0mm (<16 mm indicates systolic RV dysfunction). LA: The left atrial volume is mildly increased (34- 41ml/M2). RA: Right atrial size is normal. MARY: No evidence of pericardial effusion. AO: Aortic root is not dilated.PA: The peak pulmonary artery systolic pressure is estimated to be approximately 32 mmHg. Estimated right atrial pressure of 8 mmHg. SVn: Inferior vena cava shows <50% collapse with respiration consistent with elevated right atrial pressure. AV: The aortic valve is trileaflet. No evidence of aortic valve stenosis. No evidence of aortic regurgitation. MV: Trace mitral regurgitation. No evidenceof mitral valve stenosis. PV: No evidence of pulmonic valve stenosis. No evidence of pulmonic regurgitation. TV: A trace of tricuspid regurgitation. No evidence of tricuspid valve stenosis. ++++++++++++++++++++++++++++++++++++ MEASUREMENTS: ++++++++++++++++++++++++++++++++++++ 2D Aorta Ao Asc 2.8 cm (2.1-3.4) LVOT LVOT 1.8 cm LVOTArea 2.54 cm2 LA Biplane LAVol I BP 38.7 ml/m2 Left Ventricle LVEDV BP 77 ml LV EF BP 71 % LVESV BP 22 ml LV SV BP 55 ml MMODE Left Ventricle LVIDd 5.52 cm (zsc 1.9)+LV%fs 36.2 % (28-41) LVIDs 3.52 cm (zsc 1.6)+ LV EF 65.4 % (45-90) LVPW LVPWd 0.985 cm (zsc 2)+ Ventricular Septum IVSd 0.963 cm (zsc 1.7)+ Ratios IVS LA/Ao 1.37 (0.87-1.1)* Left Atrium LAID 4.1 cm (zsc 2.6)* Aorta Ao Rt 3 cm (zsc 1) DOPPLER LVOT LVOTpkPG 4 mmHg LVOTmnPG 2 mmHg LVOTpkVel 106 cm/s (70-110) LVOT SV 62 ml LVOT TVI 24.3 cm LVOT CO 81.7 ml/s Pulmonary Veins PVnpkVeld 64.7 cm/s PVnVs/Vd 1.1 PVnpkVels 72.1 cm/s AV Forward Flow AV TVI 33.9 cm AV pkPG 8 mmHg AV pkVel 142 cm/s (100-170) Area (TVI) 1.82 cm2 (3-5)* AV mnPG 4 mmHg Area (Patrick) 1.9 cm2 (3-5)* Mitral Valve MV pkVel 127 cm/sMV Forward Flow MV DeTm 264 ms MV pkPG 6 mmHg MVA P1/2t 2.65 cm2 (4-6)* MV mnVel 77.3 cm/s MV P1/2t 83 ms (30-60)+* MV E/A 1.1 MV mnPG 3 mmHg MV pkE 94.3 cm/s (60-130) MV TVI 35.3 cm (10-13)+* MV pkA 84.9 cm/s PV Forward Flow PV pkVel 103 cm/s (60- 90)+* PV pkPG 4 mmHg TV Regurg Flow TV pkPG 24 mmHg TV pkVel 245 cm/s (30-70)+* TV Forward Flow TV E/A 1.4 TV pkA 51.3 cm/s TV pkE 70.6 cm/s Lat E' Lat e 7.35 cm/s Lat E/E' Lat E/e 12.8 Med E' Med e 7.79 cm/s Med E/E' Med E/e 12.1 Ant A` Patrick Blood velocity 10.9 cm/s Ant E` Patrick Blood velocity 9.32 cm/s Ant S Patrick Blood velocity 12 cm/s LA 2C Value32.7 ml/m2 LA 4C Value 43.5 ml/m2 LA BP Index Value 38.7 ml/m2 Lat MA LV Peak Couch Ti 7.46 cm/s Ratio of LV E t 1 Left Ventricle LV IVRT 67 ms LVOT/AV VTI Value 0.7 Med MA LV Peak Couch Ti 8.22 cm/s Ratio of LV E t 0.9 RA AREA Area 10.4 cm2 RV / LV Ratio Value 0.9 RV Area Area 20.9 cm2 TAPSE Distance 2.3 cm Signed 09/17/2021 11:21 AM Koki Agarwal M.D. XR CHEST PORTABLE Result Date: 09/16/2021 Examination: Chest Radiograph, 1 view Exam Date/Time: 09/16/2021 5:42 AM Reason For Exam: chf Shortness of breath Comparison: None Technique: Single AP view of the chest. Findings: Cardiac silhouette contours within normal limits. Mild to moderate pulmonary vascular congestion.Scattered bilateral pulmonary interstitial infiltrates. Possible developing small left effusion. Nopneumothorax. Degenerative changes in the shoulders. Atherosclerotic aorta. Elevated right hemidiaphragm. ======== IMPRESSION: ======== 1. Pulmonary vascular congestion with bilateral pulmonary infiltrates. Edema favored with infection not excluded. 2. Probable small left effusion Referred By: Interpreted By: Huseyin Roberto MD, 09/16/2021 5:51 AM EKG: Results for orders placed or performed during the hospital encounter of 09/16/21 [address] 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: : 1940 Requested By: Order Number: [id number] Reading MD: Ronnie Patterson Measurements Intervals [place] Rate: 92 P: 59 WI: 165 QRS: 41 QRSD: 92 T: 50 QT: 375 QTc: 466 Interpretive Statements SINUS RHYTHM MINIMAL ST DEPRESSION [0.025+ mV ST DEPRESSION] No previous ECG available for comparison Assessment / Plan: ## SOB - multifactorial ## Acute Hypoxic Resp Failure - will treat underlying HF and anemia and wean O2 back to RA, currently requiring 4L 09/18 - weaned to RA ## Acute HFpEF - no past h/o HF however has pulmon edema and vascular congestion on imaging - IV diuresis with sodium restriction - ECHO: EF 65 to 70% with grade 2 diastolic dysfunction, IVC less than 50% collapsible -09/18 - euvolemic now, switch to oral furosemide ## Symptomatic Microcytic Anemia 2/2 Severe Iron Deficiency Anemia - known to have Iron Def, refused outpatient endoscopy through PCP prior, still doesn't want endoscopy. No overt bleed. FIT - neg - transfused 2 units PPRBC - hgb responded appropriately; trend h/h, start ppi bid - start IV iron replacement ## Hypervolemic Hypo-osmolar Hyponatremia - asymptomatic, follow with diuresis ## Hypokalemia - replace prn to goal of 4 ## DM2 - hold home oral meds, LDSS ?? ## Carotid Stenosis - cont statin, not on asa ?? ## Hypothyroidism - cont home dose L thyroxine, TSH - adequately suppressed. ## DVT Prophyl: SCDS ## GI Prophyl: PPI CODE STATUS: FULL Surrogate decision-maker: Daughter DIVYA DALAL MD 09/18/2021 4:17 PM * Iona Mason RN - 09/18/2021 6:47 AM CDT Problem: Pain Goal: Patient's pain/discomfort is manageable Description: Assess and monitor patient's pain using appropriate pain scale. Collaborate with interdisciplinary team and initiate plan and interventions as ordered. Re-assess patient's pain level 30 - 60 minutes after pain management intervention. Outcome: Progressing Problem: Safety Goal: Patient will be injury free during hospitalization Description: Assess and monitor vitals signs, neurological status including level of consciousness and orientation. Assess patient's risk for falls and implement fall prevention plan of care and interventions per hospital policy. Ensure arm band on, uncluttered walking paths in room, adequate room lighting, call light and overbed table within reach, bed in low position, wheels locked, side rails up per policy, and non-skid footwear provided. Outcome: Progressing Problem: Daily Care Goal: Daily care needs are met Description: Assess and monitor ability to perform self care and identify potential discharge needs. Outcome: Progressing Problem: Reduced risk for falls/injury Goal: Reduced Risk for Falls/Injury Outcome: Progressing Goal: Reduced Risk of Confusion (Acute vs Chronic) Outcome: Not Progressing * Alissa Guy, PT - 09/17/2021 2:33 PM CDT 09/17/21 1404 Therapy Visit Ordering Provider Divya Dalal MD PT Received On 09/17/21 PT Evaluation Completed on 09/17/21 Subjective Patient sitting at EOB and agreeable to therapy. Reason for admission CHF Relevant Comorbidities/ Personal Factors to PT .. Verified Two Patient Identifiers Yes Patient consents to therapy Yes Acute Inpatient PT Time Calculation PT Start Time 1101 PT Stop Time 1116 PT Time Calculation (min) 15 min Precautions General Precautions Bed Alarm;Chair Alarm;Fall Risk Home Living Type of Home House Home Layout One level Home Accessibility 5+ Steps to enter Bathroom Shower/Tub Tub/shower unit Home Equipment Wheelchair-manual Prior Function Level of [place] Independent with ADLs;Independent with functional transfers;Independent with ambulation;Needs assistance with homemaking Device used at baseline None (wheelchair for distance) Lives With Daughter Receives Help From Family ADL Assistance Independent Homemaking Assistance Needs assistance PLOF Comments Family member reports, patient has been living with daughter and mostly independent. patient requires cues for safety throughout due to cognition. Daughter reports overall declining cognition. . Pain Pain No Activity Tolerance Endurance Tolerates 10 - 20 min activity with rests Endurance Quality Fair Limiting Factors to Endurance Acute deconditioning Pre-activity VS 138/54, 72 HR, 90% on room air Activity Tolerance Comments Patient tolerates ADL routine and then ambulation down hallway. Cognition Overall Cognitive Status Impaired Arousal/Alertness Appropriate responses to stimuli Attention Span Appears intact Memory Appears intact Orientation Level Oriented to person;Oriented to place Other (Comment) patient makes unsolicited comments, min confusion noted. easily distracted. RUE Assessment RUE Comment WFL ROM and MMT LUE Assessment LUE Comment WFL ROM and MMT Bed Mobility Sit to Supine SBA/supervision TRANSFERS Sit to Stand Contact guard assist (gait belt ) Gait Gait Assistance Contact guard assist Assistive Device None Distance Ambulated (ft) 150 ft Other (Comment) patient gets distracted easily at this time. no LOB seen. Assessment Personal Factors/Comorbidities Impacting Care 3-4 personal factors/comorbidities Examination of Body Systems Moderate (3 or more Elements) Objectives of Body Systems Decreased cognition;Decreased safe judgement Clinical Presentation of Patient Evolving and changing characteristics Complexity Level of Evaluation Moderate Prognosis Good PT Assess/Eval Other (Comment) patient showed min cognitive forgetfullness and awareness. noted drop on spo2 upon activity but recovers easily when given to take DBE. Recommendation PT Recommendation PT during hospitalization;Home with assistance;24 hour supervision/assist (pending progress) PT Equipment Recommended To Be Determined Plan PT Treatments/Interventions Gait Training PT Frequency Daily PT - Next Appointment 09/18/21 End of Session End of Session Safety Bed alarm set/activated;Call light within reach;Nursing aware of session Interdisciplinary Collaboration OT ALISSA GUY, PT * Maritza Hou, OT - 09/17/2021 12:18 PM CDT 09/17/21 1100 Therapy Visit OT Received On 09/17/21 OT Evaluation Completed on 09/17/21 Treatment Day 1 Reason for admission CHF Comorbidities Relevant to OT Past Medical History: Diagnosis Date ??? Cancer (CMS/HCC) ??? CHF (congestive heart failure) (CMS/HCC) ??? Diabetes mellitus (CMS/HCC) ??? Disease of thyroid gland ??? Hypertension Past Surgical History: Procedure Laterality Date ??? BACK SURGERY ??? CAROTID ENDARTERECTOMY ??? EYE SURGERY ??? HYSTERECTOMY Previous Occupational Therapy Unknown Ordering Provider Divya Dalal MD Verified Two Patient Identifiers Yes Patient consents to therapy Yes Acute Inpatient OT Time Calculation OT Start Time 1101 OT Stop Time 1118 OT Time Calculation (min) 17 min Precautions General Precautions Bed Alarm;Chair Alarm;Fall Risk Subjective Subjective Patient sitting at EOB and agreeable to therapy. Home Living Type of Home House Home Layout One level Home Accessibility 5+ Steps to enter Bathroom Shower/Tub Tub/shower unit Home Equipment Wheelchair-manual Prior Function Level of [place] Independent with ADLs;Independent with functional transfers;Independent with ambulation;Needs assistance with homemaking Device used at baseline None (wheelchair for distance) Lives With Daughter Receives Help From Family ADL Assistance Independent Homemaking Assistance Needs assistance PLOF Comments Family member reports, patient has been living with daughter and mostly independent. patient requires cues for safety throughout due to cognition. Daughter reports overall declining cognition. . Pain Pain No Activity Tolerance Endurance Tolerates 10 - 20 min activity with rests Endurance Quality Fair Limiting Factors to Endurance Acute deconditioning Pre-activity VS 138/54, 72 HR, 90% on room air Activity Tolerance Comments Patient tolerates ADL routine and then ambulation down hallway. Patient found without O2 on. Patient stating 88-92. O2 quickly rises with deep breaths. Drops to 90-92 when resting. KHLOE Reis made aware. Cognition Overall Cognitive Status Impaired Arousal/Alertness Appropriate responses to stimuli Attention Span Appears intact Memory Appears intact Orientation Level Oriented to person;Oriented to place RUE Assessment RUE Comment WFL ROM and MMT LUE Assessment LUE Comment WFL ROM and MMT ADL LE Dressing Assistance Stand by;Sitting at EOB LE Dressing Comment donns pants with set up. Bed Mobility Sit to Supine SBA/supervision Functional Transfers Sit to Stand Contact guard assist (gait belt ) Functional Mobility Patient ambulates from EOB down hallway with cga and cues for safety. patient requires frequent cues for safety due to decreased cognition. Assessment Occupational Profile and History Complexity Moderate (Expanded) Performance Skills Deficits Bathing/showering;Dressing;Functional mobility;Toileting Performance Deficit Level Moderate (3-5 deficits) Clinical Decision Making Moderate (min/mod modifications) Complexity Level of Evaluation Moderate Prognosis Good;Fair OT Assess/Eval Other (Comment) Patient presents with CHF. Patient presents with deficits in activity tolerance, balance, and safety during self care tasks. patient requires increased assistance for cues for safety due to decreased cognition. Patient requires 24/7 assistance due to decreased cognition. patient may continue to benefit from skilled therapy to return to [facility]. Recommendation OT Recommendation OT during hospitalization;OT at detention facility;24 hour supervision/assist OT Equipment Recommended To Be Determined Plan OT Treatment/Intervention Self-care training;Therapeutic exercises;Therapeutic activities;Functional activity;Safety Progress Progressing toward goals OT Frequency 3 times/week;5 times/week If this is the last treatment note, it will serve as the discharge summary Yes End of Session End of Session Safety Bed alarm set/activated;Call light within reach;Nursing aware of session;Family/friend present with patient Interdisciplinary Collaboration co-eval with PT Maritza Hou OTR/L CLT * Divya Dalal MD - 09/17/2021 10:39 AM CDT Hospitalist Service Progress Note Chief Complaint : Shortness Of Breath Subjective: 81-year-old female with multifactorial SOB Patient doing well, very jovial this morning. SOB improving, able to wean down to 2L No reported melena or hematochezia No Known Allergies ROS: 14 point ROS neg except as noted per HPI. Objective: Filed Vitals: 09/16/21 1750 09/16/21 2256 09/17/21 0459 09/17/21 0625 BP: 112/46 108/45 132/61 Pulse: 83 73 75 Resp: Temp: 97.4 ??F (36.3 ??C) 98 ??F (36.7 ??C) 98.1 ??F (36.7 ??C) TempSrc: Oral Oral Oral SpO2: 96% 91% 94% Weight: 82.8 kg (182 lb 8.7 oz) Height: Physical Exam: General: Pleasant elderly female lying in bed in no acute cardiopulmonary painful distress Eyes: Mucous membranes pale and moist, sclera anicteric ENT: No oropharyngeal lesions, neck supple Lungs: Air entry equal bilaterally, vesicular breath sounds, bibasal crepitations rhonchi or wheeze Cardiovascular: Normal S1 and S2, no murmurs rubs or gallops Abdomen: Soft, nontender, normoactive bowel sounds Extremities: No edema, Neurological: Alert and oriented x2, nonfocal Psych: Mood-euthymic, affect-appropriate Skin: Skin color, texture, turgor normal. No rashes or lesions ?? LAB: Recent Labs Lab 09/16/21 05009/17/21 0458 NA 125* 134* K 3.8 3.3* CL 94* 99 CO2 25.0 31.0 AGAP 6.0 4.0* BUN 17 15 CR 0.95 0.97 GFRNON 57* 56* GFR 66* 64* GLU 151* 105 CA 8.1* 8.1* MAGNESIUM -- 2.1 Recent Labs Lab 09/16/21 0508 09/16/21 1936 09/17/21 0458 WBC 12.4* 10.3* 8.3 RBC 3.39* 4.11 3.93 HGB 5.8* 8.4* 8.1* HCT 21.7* 29.4* 27.8* MCV 64.0* 71.5* 70.7* MCH 17.1* 20.4* 20.6* MCHC 26.7* 28.6* 29.1* PLT 609* 548* 502* RDW 19.1* 25.5* 24.9* MPV 8.4* 8.6* 8.8 No results for input(s): CPK in the last 168 hours. Recent Labs Lab 09/16/21 0508 INR 1.1 PTT 36.2 Invalid input(s): ABG Recent Labs Lab 09/16/21 0508 TROP 7 No results for input(s): PH, PCO2, PO2, [id number], BICARBWB, BASEDEFICIT, BASEEXCESS in the bdgx055 hours. IMAGING: CTA CHEST Result Date: 09/16/2021 CTA CHEST WITH CONTRAST CLINICAL INDICATION: Suspected pulmonary embolus COMPARISON: None. TECHNIQUE: 55 mL Isovue-370 administered intravenously. CTA images of the chest were obtained. Three-dimensional volume reconstructions were generated. CT dose lowering techniques were used, to include: automated exposure control, adjustment for patient size, and or use of iterative reconstruction. FINDINGS: CTA: No pulmonary arterial filling defect. Heart size normal without pericardial effusion. Mediastinal vessels normal in caliber and patency. Mediastinum: Mildly enlarged mediastinal nodes measuringup to 8 mm in short axis. Central airways are patent. Small hiatal hernia. Visualized thyroid gland is normal. Lungs and pleura: Bilateral pleural effusions with adjacent patchy areas of consolidation and groundglass opacity. Central/right perihilar groundglass opacities are also noted with diffuseinterlobular septal thickening. Upper abdomen: Granulomatous calcifications in the spleen. Body wall: No acute abnormality. Bones: No acute osseous abnormality. IMPRESSION: Findings suggestive of pulmonary edema with bilateral pleural effusions. However, an infectious or inflammatory process could also have this appearance in the appropriate clinical setting. No CT evidence of acute pulmonary embolus. Electronically signed by: Angelica Boudreaux 09/16/2021 7:01:00 AM USE ECHOCARDIOGRAM Result Date: 09/17/2021 Echocardiography Report Pat.Name: INDY VALDEZ [facility].ID: [id number] .Date: 09/17/2021 : [id number], YOU SHILPA H Exam Time: 10:20:00 AM Study Type:ECHO WITH CARDIAC DOPPLER COMP Height: 64in Weight: 139.71lb BSA: 1.68 m2 Age: 2 1940,81Y Sex: FEMALE BP: 132/61 Sonogrphr: Janel Starr SANGEETA Pat. Stat.:Inpatient Room: 606-06 CPT - 4: 38493 Reason for Study: Heart failure, IE 33-1SN S8S092 / X5-1 SN [id number] Procedures: 2D, M-mode, Doppler, Color Flow, Definity was used to enhance endocardial definition. ++++++++++++++++++++++++++++++++++++ SUMMARY: +++++++++++++++++++++++++++++ +++++++ The left ventricular size is normal. Estimated left ventricular ejection fraction is 65-70%. Left ventricular diastolic function is abnormal (grade 2 - pseudonormal pattern). The peak pulmonary artery systolic pressure is estimated to be approximately 32 mmHg. Valves normal ++++++++++++++++++++++++++++++++++++ FINDINGS: ++++++++++++++++++++++++++++++++++++ LV: The left ventricular size is normal. The left ventricular systolic function is normal. Estimated left ventricular ejection fraction is 65-70%. The septal E/e' is indeterminate at 8- 15. The lateral E/e' is elevated at >11. Left ventricular diastolic function is abnormal (grade 2 - pseudonormal pattern). RV: The right ventricular size is normal. Right ventricular systolic function is normal. TAPSE = 23.0mm (<16 mm indicates systolic RV dysfunction). LA: The left atrial volume is mildly increased (34- 41ml/M2). RA: Right atrial size is normal. MARY: No evidence of pericardial effusion. AO: Aortic root is not dilated.PA: The peak pulmonary artery systolic pressure is estimated to be approximately 32 mmHg. Estimated right atrial pressure of 8 mmHg. SVn: Inferior vena cava shows <50% collapse with respiration consistent with elevated right atrial pressure. AV: The aortic valve is trileaflet. No evidence of aortic valve stenosis. No evidence of aortic regurgitation. MV: Trace mitral regurgitation. No evidenceof mitral valve stenosis. PV: No evidence of pulmonic valve stenosis. No evidence of pulmonic regurgitation. TV: A trace of tricuspid regurgitation. No evidence of tricuspid valve stenosis. ++++++++++++++++++++++++++++++++++++ MEASUREMENTS: ++++++++++++++++++++++++++++++++++++ 2D Aorta Ao Asc 2.8 cm (2.1-3.4) LVOT LVOT 1.8 cm LVOTArea 2.54 cm2 LA Biplane LAVol I BP 38.7 ml/m2 Left Ventricle LVEDV BP 77 ml LV EF BP 71 % LVESV BP 22 ml LV SV BP 55 ml MMODE Left Ventricle LVIDd 5.52 cm (zsc 1.9)+LV%fs 36.2 % (28-41) LVIDs 3.52 cm (zsc 1.6)+ LV EF 65.4 % (45-90) LVPW LVPWd 0.985 cm (zsc 2)+ Ventricular Septum IVSd 0.963 cm (zsc 1.7)+ Ratios IVS LA/Ao 1.37 (0.87-1.1)* Left Atrium LAID 4.1 cm (zsc 2.6)* Aorta Ao Rt 3 cm (zsc 1) DOPPLER LVOT LVOTpkPG 4 mmHg LVOTmnPG 2 mmHg LVOTpkVel 106 cm/s (7 0-110) LVOT SV 62 ml LVOT TVI 24.3 cm LVOT CO 81.7 ml/s Pulmonary Veins PVnpkVeld 64.7 cm/s PVnVs/Vd 1.1 PVnpkVels 72.1 cm/s AV Forward Flow AV TVI 33.9 cm AV pkPG 8 mmHg AV pkVel 142 cm/s (100-170)Area (TVI) 1.82 cm2 (3-5)* AV mnPG 4 mmHg Area (Patrick) 1.9 cm2 (3-5)* Mitral Valve MV pkVel 127 cm/s MV Forward Flow MV DeTm 264 ms MV pkPG 6 mmHg MVA P1/2t 2.65 cm2 (4-6)* MV mnVel 77.3 cm/s MV P1/2t83 ms (30-60)+* MV E/A 1.1 MV mnPG 3 mmHg MV pkE 94.3 cm/s (60-130) MV TVI 35.3 cm (10-13)+* MV pkA84.9 cm/s PV Forward Flow PV pkVel 103 cm/s (60-90)+* PV pkPG 4 mmHg TV Regurg Flow TV pkPG 24 mmHgTV pkVel 245 cm/s (30-70)+* TV Forward Flow TV E/A 1.4 TV pkA 51.3 cm/s TV pkE 70.6 cm/s Lat E' Late 7.35 cm/s Lat E/E' Lat E/e 12.8 Med E' Med e 7.79 cm/s Med E/E' Med E/e 12.1 Ant A` Patrick Blood velo city 10.9 cm/s Ant E` Patrick Blood velocity 9.32 cm/s Ant S Patrick Blood velocity 12 cm/s LA 2C Value 32.7 ml/m2 LA 4C Value 43.5 ml/m2 LA BP Index Value 38.7 ml/m2 Lat MA LV Peak Couch Ti 7.46 cm/s Ratio of LV E t 1 Left Ventricle LV IVRT 67 ms LVOT/AV VTI Value 0.7 Med MA LV Peak Couch Ti 8.22 cm/s Ratio of LV E t 0.9 RA AREA Area 10.4 cm2 RV / LV Ratio Value 0.9 RV Area Area 20.9 cm2 TAPSE Distance 2.3 cm Signed 09/17/2021 11:21 AM Koki Agarwal M.D. XR CHEST PORTABLE Result Date: 09/16/2021 Examination: Chest Radiograph, 1 view Exam Date/Time: 09/16/2021 5:42 AM Reason For Exam: chf Shortness of breath Comparison: None Technique: Single AP view of the chest. Findings: Cardiac silhouette contours within normal limits. Mild to moderate pulmonary vascular congestion.Scattered bilateral pulmonary interstitial infiltrates. Possible developing small left effusion. Nopneumothorax. Degenerative changes in the shoulders. Atherosclerotic aorta. Elevated right hemidiaphragm. ======== IMPRESSION: ======== 1. Pulmonary vascular congestion with bilateral pulmonary infiltrates. Edema favored with infection not excluded. 2. Probable small left effusion Referred By: Interpreted By: Huseyin Roberto MD, 09/16/2021 5:51 AM EKG: Results for orders placed or performed during the hospital encounter of 09/16/21 [address] [facility] Test Date: 2021-09-16 Pat Name: INDY VALDEZ Department: 68 Room: [place] [address] Gender: F Biofuels Manager: : 1940 Requested By: Order Number: [id number] Reading MD: Ronnie Patterson Measurements Intervals [place] Rate: 92 P: 59 WI: 165 QRS: 41 QRSD: 92 T: 50 QT: 375 QTc: 466 Interpretive Statements SINUS RHYTHM MINIMAL ST DEPRESSION [0.025+ mV ST DEPRESSION] No previous ECG available for comparison Assessment / Plan: ## SOB - multifactorial ## Acute Hypoxic Resp Failure - will treat underlying HF and anemia and wean O2 back to RA, currently requiring 4L ## Acute HFpEF - no past h/o HF however has pulmon edema and vascular congestion on imaging - IV diuresis with sodium restriction - ECHO: EF 65 to 70% with grade 2 diastolic dysfunction, IVC less than 50% collapsible ## Symptomatic Microcytic Anemia 2/2 Severe Iron Deficiency Anemia - known to have Iron Def, refused outpatient endoscopy through PCP prior, still doesn't want endoscopy. No overt bleed. - transfused 2 units PPRBC - hgb responded appropriately; trend h/h, start ppi bid - start IV iron replacement ## Hypervolemic Hypo-osmolar Hyponatremia - asymptomatic, follow with diuresis ## Hypokalemia - replace prn to goal of 4 ## DM2 - hold home oral meds, LDSS ?? ## Carotid Stenosis - cont statin, not on asa ?? ## Hypothyroidism - cont home dose L thyroxine, will get TSH ## DVT Prophyl: SCDS ## GI Prophyl: PPI CODE STATUS: FULL Surrogate decision-maker: Daughter DIVYA DALAL MD 09/17/2021 3:40 PM * ALEXANDRA Rockwell - 09/17/2021 7:48 AM CDT PASSR screen completed, paperwork faxed to senior services. 10:00am: Patient daughter reports that family does not want placement at [facility]. Pt daughter would like referral to be faxed to [email or web address]. 10:30am: Karina Maza called and reports that patient accepted at facility after three midnights. BEATER ROOM SUPERVISOR will inform family. 12:00pm: Referral faxed to [email or web address] per pt daughter request. Fax number is [phone]. * ALEXANDRA Rockwell - 09/16/2021 11:02 AM CDT 09/16/21 1100 Referral Data Source of Information Family/Significant Other Patient Information Primary Caregiver Family Support System Immediate family Baseline ADL's Behavior Confused Communication Talks;Understands speaking;Understands Norwegian Anticipated Discharge Needs Change in Living Arrangements Yes Anticipated DC Plan Living Arrangements Other (Comment) Type of Residence Rehab facility Patient expects to be discharged to: Rehab facility BEATER ROOM SUPERVISOR met with patient and daughter at bedside. Patient resides at home with her daughter. Patient uses a wheelchair at home. Family would like for patient to go to rehabilitation facility and then transition to long-term care. Patient daughter is POA. BEATER ROOM SUPERVISOR provided pt daughter with list of detention facility options. Patient daughter states that she is not from here and is not familiar with facilities in this area. Pt daughter plans to tour facilities. BEATER ROOM SUPERVISOR will continue to assist patient and family with placement process as needed. The patient's preferences and goals were taken in consideration when creating the hospital discharge plan. The patient identified the following goal(s): Patient/family verbalizes understanding regarding the need for SNF placement, Patient and family will have open conversation regarding patient goals and wishes for treatment, Patient / family / caregiver will be involved in care transitions and discharge planning, and demonstrates understanding of the use of assisted devices (i.e., cane, walker, shower chair). 2:00pm: BEATER ROOM SUPERVISOR spoke with pt daughter, and sister. Family would like referrals to be sent to [facility], [facility], [facility], and [place]. Family plans to tour facilities this afternoon and will report ranking preference. documented in this encounter H&P Notes * Divya Dalal MD - 09/16/2021 9:05 AM CDT Hospitalist History and Physical Admission date: 09/16/2021 Reason for Admission: <principal problem not specified> Chief Complaint : Shortness Of Breath History of present illness: Indy Valdez is a 81-year-old female, who has a past medical history of Cancer (CMS/HCC), CHF (congestive heart failure) (CMS/HCC), Diabetes mellitus (CMS/HCC), Disease of thyroid gland, and Hypertension.; and a has a past surgical history that includes Hysterectomy; Eye surgery; Back surgery;and Carotid endarterectomy. Who presents with sudden onset shortness of breath. Patient demented and unable to give accurate history. Apparently she was visiting her sister in town over the past few days, and was in her regular state of health, went to various events. Patient woke up from sleep last night complaining of being SOB. There was no complaint of chest pain or palpitations. No leg swelling or orthopnea. No recent cough or fever or wheeze. With EMS Patient hypoxic in to 70s. No history of home O2 use. Patient found to be anemia to 5.8 on presentation, daughter reports that she's had issues with irondeficiency anaemia in the past EGD and colonoscopy was recommended however family declined. They deny her having blood or black stools. Allergies No Known Allergies Medication List: Medications Prior to Admission Medication Sig Dispense Refill ??? amLODIPine 10 MG tablet Take 10 mg by mouth daily. ??? atorvastatin 10 MG tablet Take 10 mg by mouth daily. ??? citalopram 20 MG tablet Take 20 mg by mouth daily. ??? iron polysaccharides plus vitamins 50-100 MG Cap Take 1 capsule by mouth daily with breakfast. ??? levothyroxine 137 MCG tablet Take 137 mcg by mouth every morning. ??? LORazepam 0.5 MG tablet Take 0.5 mg by mouth every 6 (six) hours as needed for Anxiety. ??? omeprazole 20 MG capsule Take 20 mg by mouth daily. ??? pioglitazone 30 MG tablet Take 30 mg by mouth daily. ??? HYDROcodone-acetaminophen 5-325 MG tablet Take 1 tablet by mouth every 4 (four) hours as neededfor Pain. ??? valACYclovir 1 g tablet Take 1,000 mg by mouth 2 (two) times daily as needed. Current Facility-Administered Medications Medication ??? acetaminophen (TYLENOL) tablet 650 mg ??? amLODIPine (NORVASC) tablet 10 mg ??? atorvastatin (LIPITOR) tablet 10 mg ??? azithromycin (ZITHROMAX) 500 mg in sodium chloride 0.9 % 250 mL IVPB ??? citalopram (CeleXA) tablet 20 mg ??? furosemide (LASIX) injection 40 mg ??? HYDROcodone-acetaminophen (NORCO) 5-325 MG tablet 1 tablet ??? insulin lispro (HUMALOG) injection 0-12 Units ??? [START ON 09/17/2021] levothyroxine (SYNTHROID) tablet 137 mcg ??? LORazepam (ATIVAN) tablet 0.5 mg ??? ondansetron (ZOFRAN) injection 4 mg ??? pantoprazole EC (PROTONIX) tablet 40 mg ??? sodium chloride 0.9% infusion ??? sodium chloride 0.9% infusion ??? sodium chloride 0.9% infusion Past Medical History Past Medical History: Diagnosis Date ??? Cancer (CMS/HCC) ??? CHF (congestive heart failure) (CMS/HCC) ??? Diabetes mellitus (CMS/HCC) ??? Disease of thyroid gland ??? Hypertension Past Surgical History: Procedure Laterality Date ??? BACK SURGERY ??? CAROTID ENDARTERECTOMY ??? EYE SURGERY ??? HYSTERECTOMY Social History Social History Socioeconomic History ??? Marital status: Spouse name: Not on file ??? Number of children: Not on file ??? Years of education: Not on file ??? Highest education level: Not on file Occupational History ??? Not on file Tobacco Use ??? Smoking status: Never Smoker ??? Smokeless tobacco: Never Used Substance and Sexual Activity ??? Alcohol use: Never ??? Drug use: Never ??? Sexual activity: Never Other Topics Concern ??? Not on file Social History Narrative ??? Not on file Social Determinants of Health Financial Resource Strain: Not on file Food Insecurity: Not on file Transportation Needs: Not on file Physical Activity: Not on file Stress: Not on file Social Connections: Not on file Intimate Partner Violence: Not on file Family History Family History Problem Relation Name Age of Onset ??? Cancer Mother ??? Cancer Brother ??? Hyperlipidemia Daughter ??? Hypertension Daughter ??? Heart Disease Son ??? Cancer Sister ??? Heart Disease Brother ??? Heart Disease Brother Review of Systems: A 14 point review of systems was taken and pertinent positive as per HPI. Physical Exam: Vitals: 09/16/21 1750 BP: 112/46 Pulse: 83 Resp: 20 Temp: 97.4 ??F (36.3 ??C) SpO2: 96% General: Pleasant elderly female lying in bed in no acute cardiopulmonary painful distress Eyes: Mucous membranes pale and moist, sclera anicteric ENT: No oropharyngeal lesions, neck supple Lungs: Air entry equal bilaterally, vesicular breath sounds, bibasal crepitations rhonchi or wheeze Cardiovascular: Normal S1 and S2, no murmurs rubs or gallops Abdomen: Soft, nontender, normoactive bowel sounds Extremities: No edema, Neurological: Alert and oriented x2, nonfocal Psych: Mood-euthymic, affect-appropriate Skin: Skin color, texture, turgor normal. No rashes or lesions Intake/Output last 3 shifts: I/O last 3 completed shifts: In: 677.9 [P.O.:280; Blood:397.9] Out: 850 [Urine:850] Labs: Recent Labs Lab 09/16/21 0508 NA 125* K 3.8 CL 94* CO2 25.0 AGAP 6.0 BUN 17 CR 0.95 GFRNON 57* GFR 66* GLU 151* CA 8.1* Recent Labs Lab 09/16/21 0508 WBC 12.4* RBC 3.39* HGB 5.8* HCT 21.7* MCV 64.0* MCH 17.1* MCHC 26.7* PLT 609* RDW 19.1* MPV 8.4* Recent Labs Lab 09/16/21 0508 AST 25 ALT 31 Recent Labs Lab 09/16/21 0508 INR 1.1 PTT 36.2 Invalid input(s): ABG Recent Labs Lab 09/16/21 0508 TROP 7 No results for input(s): PH, PCO2, PO2, [id number], BICARBWB, BASEDEFICIT, BASEEXCESS in the [id number] hours. Imaging & Other Studies No results found. Results for orders placed or performed during the hospital encounter of 09/16/21 [address] [facility] Test Date: 2021-09-16 Pat Name: INDY VALDEZ Department: 68 Room: [place] [address] Gender: F Biofuels Manager: : 1940 Requested By: Order Number: [id number] Reading MD: Ronnie Patterson Measurements Intervals [place] Rate: 92 P: 59 WI: 165 QRS: 41 QRSD: 92 T: 50 QT: 375 QTc: 466 Interpretive Statements SINUS RHYTHM MINIMAL ST DEPRESSION [0.025+ mV ST DEPRESSION] No previous ECG available for comparison Today, I have reviewed Radiology reports up to this point in the patients current encounter and have incorporated these into the assessment/plan and care of this patient. Active Problems: There are no problems to display for this patient. Assessment & Plan: ## SOB - multifactorial ## Acute Hypoxic Resp Failure - will treat underlying HF and anemia and wean O2 back to RA, currently requiring 4L ## Acute HF - no past h/o HF however has pulmon edema and vascular congestion on imaging - IV diuresis with sodium restriction - will get ECHO ## Symptomatic Microcytic Anemia 2/2 Severe Iron Deficiency Anemia - known to have Iron Def, refused outpatient endoscopy through PCP prior, still doesn't want endoscopy. No overt bleed. - transfused 2 units PPRBC; trend h/h, start ppi bid ## Hypervolemic Hypo-osmolar Hyponatremia - asymptomatic, follow with diuresis ## DM2 - hold home oral meds, LDSS ## Carotid Stenosis - cont statin, no on asa ## Hypothyroidism - cont home dose L thyroxine, will get TSH ## DVT Prophyl: SCDS ## GI Prophyl: PPI CODE STATUS: FULL Surrogate decision-maker: DAUghter Contacted by patient's PCP: Dr. Hercules who filled in parts of her past med/ surg history. Portions of this note were dictated with [employer] medical dictation software. Misspellings, punctuation errors, omitted words or dictation variances may occur. DIVYA DALAL MD 09/16/2021 7:05 PM documented in this encounter Nursing Notes * Katt Jerome RN - 09/19/2021 11:19 AM CDT Report called to Mandie at [facility] documented in this encounter ED Notes * Bhavana Ramey RN - 09/16/2021 6:55 AM CDT Daughter (POA) at bedside. Blood consent signed by the daughter. * Bhavana Ramey RN - 09/16/2021 6:34 AM CDT Called blood bank, they state that they are not ready yet, states that they will once they are ready. * Shilpa Chung MD - 09/16/2021 5:51 AM CDT Chief Complaint Chief Complaint Patient presents with ??? Shortness Of Breath History of Present Illness Patient is a 81-year-old female from home who presents with shortness of breath. Patient states that she woke up short of breath. When EMS arrived on scene patient's O2 sat was in the 70s. Denies any chest pain. Denies any cardiac history. Denies any fevers chills or cough. Denies any sick contacts. No other complaints. Patient has a history of dementia and cannot give a detailed history. 5 member at bedside do not know what medical problems she has or what medication she is on. Medical History ALLERGIES: Not on File MEDICATIONS: Prior to Admission medications Not on File PAST MEDICAL HISTORY: No past medical history on file. PAST SURGICAL HISTORY: No past surgical history on file. FAMILY HISTORY: No family history on file. SOCIAL HISTORY: Social History Tobacco Use ??? Smoking status: Not on file Substance Use Topics ??? Alcohol use: Not on file ??? Drug use: Not on file Review of Systems Review of Systems Unable to perform ROS: Dementia Physical Exam Filed Vitals: 09/16/21 0518 09/16/21 0542 09/16/21 0600 BP: (!) 146/65 134/50 129/51 Pulse: 86 84 82 Resp: 27 26 26 Temp: 98.7 ??F (37.1 ??C) TempSrc: Oral SpO2: (!) 79% 92% Physical Exam Vitals and nursing note reviewed. Constitutional: General: She is in acute distress. Appearance: She is well-developed. HENT: Head: Normocephalic and atraumatic. Nose: Nose normal. Eyes: Conjunctiva/sclera: Conjunctivae normal. Pupils: Pupils are equal, round, and reactive to light. Cardiovascular: Rate and Rhythm: Normal rate and regular rhythm. Pulses: Normal pulses. Heart sounds: Normal heart sounds. No murmur heard. No friction rub. Pulmonary: Effort: Pulmonary effort is normal. No respiratory distress. Breath sounds: No stridor. Comments: Decreased breath sounds at base. Abdominal: General: Abdomen is flat. Bowel sounds are normal. There is no distension. Palpations: Abdomen is soft. Tenderness: There is no abdominal tenderness. Genitourinary: Rectum: Guaiac result positive. Comments: Black stools guaiac positive. Musculoskeletal: General: Normal range of motion. Cervical back: Normal range of motion and neck supple. Skin: General: Skin is warm and dry. Neurological: General: No focal deficit present. Mental Status: She is alert and oriented to person, place, and time. Cranial Nerves: No cranial nerve deficit. Sensory: No sensory deficit. Diagnostic Studies / Procedures ELECTROCARDIOGRAMS: Results for orders placed or performed during the hospital encounter of 09/16/21 [address] [facility] Test Date: 2021-09-16 Pat Name: INDY VALDEZ Department: 68 Room: [place] [address] Gender: Female Biofuels Manager: : 1940 Requested By: Order Number: [id number] Reading MD: Measurements Intervals [place] Rate: 92 P: 59 WI: 165 QRS: 41 QRSD: 92 T: 50 QT: 375 QTc: 466 Interpretive Statements SINUS RHYTHM MINIMAL ST DEPRESSION [0.025+ mV ST DEPRESSION] No previous ECG available for comparison LABORATORY STUDIES: Results for orders placed or performed during the hospital encounter of 09/16/21 CBC W/DIFF AUTOMATED Result Value Ref Range WBC 12.4 (H) 4.6 - 9.1 x10'3/uL RBC 3.39 (L) 3.90 - 5.00 x10'6/uL HGB 5.8 (LL) 11.8 - 14.7 G/DL HCT 21.7 (L) 36.3 - 45.2 % MCV 64.0 (L) 80.0 - 98.0 FL MCH 17.1 (L) 26.8 - 32.1 PG MCHC 26.7 (L) 30.7 - 34.2 G/DL RDW 19.1 (H) 12.0 - 14.8 % PLT 609 (H) 145 - 358 x10'3/uL MPV 8.4 (L) 8.8 - 12.3 FL NRBC 0.2 % BASOPHILS 1.1 % EOSINOPHILS 0.9 % MONOCYTES 8.7 % LYMPHOCYTES 13.8 % SEG NEUTROPHILS 74.9 % IMMATURE GRANS 0.6 % ABS. LYMPHOCYTES 1.71 1.10 - 3.30 x10'3/uL ABS. MONOCYTES 1.08 (H) 0.30 - 0.80 x10'3/uL ABS. EOSINOPHILS 0.11 0.03 - 0.45 x10'3/uL ABS. BASOPHILS 0.14 (H) 0.01 - 0.09 x10'3/uL ABS. NUCLEATED RBC'S 0.02 0.00 - 0.12 x10'3/uL ABS. NEUTROPHILS 9.29 (H) 2.30 - 5.70 x10'3/uL ABS. IMMATURE GRANULOCYTES 0.07 0.00 - 0.09 x10'3/uL RBC MORPHOLOGY 2+ PROTIME/INR, VENOUS Result Value Ref Range Protime 14.3 11.8 - 14.7 SEC INR 1.1 PARTIAL THROMBOPLASTIN TIME,PTT Result Value Ref Range PTT 36.2 21.8 - 36.8 SEC COMPREHENSIVE METABOLIC PANEL Result Value Ref Range SODIUM 125 (L) 136 - 145 MMOL/L POTASSIUM 3.8 3.5 - 5.1 MMOL/L CHLORIDE S/P/B 94 (L) 98 - 107 MMOL/L CO2 25.0 21.0 - 32.0 MMOL/L GLUCOSE 151 (H) 74 - 106 MG/DL BUN 17 7 - 18 MG/DL CREATININE S/P/B 0.95 0.55 - 1.02 MG/DL CALCIUM 8.1 (L) 8.5 - 10.1 MG/DL BILIRUBIN TOTAL S/P/B 0.6 0.2 - 1.0 MG/DL ALKALINE PHOSPHATASE S/P/B 121 (H) 45 - 117 U/L AST 25 15 - 37 U/L ALT 31 13 - 56 U/L TOTAL PROTEIN S/P/B 7.4 6.4 - 8.2 G/DL ALBUMIN S/P/B 3.6 3.4 - 5.0 G/DL ANION GAP 6.0 5.0 - 15.0 MMOL/L OSMOLALITY (CALC) 264 MOSM/KG eGFR Non-Afr. Amer. 57 (L) >89 ML/MIN/1.73 M2 eGFR Afr. Amer. 66 (L) >89 ML/MIN/1.73 M2 GFR NOTES GFR REFERENCES: TROPONIN, QUANT Result Value Ref Range TROPONIN I HIGH SENSITIVITY 7 0 - 53 ng/L PRO-BRAIN NATRIURETIC PEPTIDE Result Value Ref Range Pro-B TYPE NATRIURETIC PEPTIDE 650 (H) <450 PG/ML TYPE & SCREEN Result Value Ref Range UNITS ORDERED 3 ABO/RH O POSITIVE ANTIBODY SCREEN NEGATIVE SAMPLE EXPIRATION: 09/19/2021,2359 UNIT NUMBER [id number] PRODUCT: PC LEUKOPOOR UNIT DIVISION 00 UNIT STATUS ALLOCATED TRANSFUSION STATUS OK TO TRANSFUSE CROSSMATCH COMPATIBLE UNIT NUMBER [id number] PRODUCT: LEUKOPOOR UNIT DIVISION 00 UNIT STATUS ALLOCATED TRANSFUSION STATUS OK TO TRANSFUSE CROSSMATCH COMPATIBLE UNIT NUMBER [id number] PRODUCT: PC LEUKOPOOR UNIT DIVISION 00 UNIT STATUS ALLOCATED TRANSFUSION STATUS OK TO TRANSFUSE CROSSMATCH COMPATIBLE RESPIRATORY PCR PANEL 2 Specimen: NASOPHARYNGEAL SWAB Result Value Ref Range ADENOVIRUS PCR (RESP) NOT DETECTED NOT DETECTED CORONAVIRUS 229E PCR (RESP) NOT DETECTED NOT DETECTED CORONAVIRUS HKU1 PCR (RESP) NOT DETECTED NOT DETECTED CORONAVIRUS NL63 PCR (RESP) NOT DETECTED NOT DETECTED CORONAVIRUS OC43 PCR (RESP) NOT DETECTED NOT DETECTED METAPNEUMOVIRUS PCR (RESP) NOT DETECTED NOT DETECTED RHINOVIRUS/ENTEROVIRUS PCR (RESP) NOT DETECTED NOT DETECTED INFLUENZA A PCR (RESP) NOT DETECTED NOT DETECTED INFLUENZA B PCR (RESP) NOT DETECTED NOT DETECTED PARAINFLUENZA 1 PCR (RESP) NOT DETECTED NOT DETECTED PARAINFLUENZA 2 PCR (RESP) NOT DETECTED NOT DETECTED PARAINFLUENZA 3 PCR (RESP) NOT DETECTED NOT DETECTED PARAINFLUENZA 4 PCR (RESP) NOT DETECTED NOT DETECTED RSV PCR (RESP) NOT DETECTED NOT DETECTED B PARAPERTUSIS PCR (RESP) NOT DETECTED NOT DETECTED BORDETELLA PERTUSSIS PCR (RESP) NOT DETECTED NOT DETECTED CHLAMYDOPHILA PNEUMONIAE PCR (RESP) NOT DETECTED NOT DETECTED MYCOPLASMA PNEUMONIAE PCR (RESP) NOT DETECTED NOT DETECTED CORONAVIRUS SARS COV 2 PCR (RESP) NOT DETECTED NOT DETECTED FIRST TEST UNKNOWN EMPLOYED IN HEALTHCARE UNKNOWN SYMPTOMATIC DEFINED BY CDC UNKNOWN HOSPITALIZATION STATUS UNKNOWN PATIENT IN ICU UNKNOWN RESIDENT OF [facility] UNKNOWN IMAGING STUDIES CTA CHEST Final Result by User, [email or web address] (09/16 701) CTA CHEST WITH CONTRAST CLINICAL INDICATION: Suspected pulmonary embolus COMPARISON: None. TECHNIQUE: 55 mL Isovue-370 administered intravenously. CTA images of the chest were obtained. Three-dimensional volume reconstructions were generated. CT dose lowering techniques were used, to include: automated exposure control, adjustment for patient size, and or use of iterative reconstruction. FINDINGS: CTA: No pulmonary arterial filling defect. Heart size normal without pericardial effusion. Mediastinal vessels normal in caliber and patency. Mediastinum: Mildly enlarged mediastinal nodes measuring up to 8 mm in short axis. Central airways are patent. Small hiatal hernia. Visualized thyroid gland is normal. Lungs and pleura: Bilateral pleural effusions with adjacent patchy areas of consolidation and groundglass opacity. Central/right perihilar groundglass opacities are also noted with diffuse interlobular septal thickening. Upper abdomen: Granulomatous calcifications in the spleen. Body wall: No acute abnormality. Bones: No acute osseous abnormality. IMPRESSION: Findings suggestive of pulmonary edema with bilateral pleural effusions. However, an infectious or inflammatory process could also have this appearance in the appropriate clinical setting. No CT evidence of acute pulmonary embolus. Electronically signed by: Angelica Boudreaux 09/16/2021 7:01:00 AM XR CHEST PORTABLE Final Result by User, [email or web address] (09/16 552) Examination: Chest Radiograph, 1 view Exam Date/Time: 09/16/2021 5:42 AM Reason For Exam: chf Shortness of breath Comparison: None Technique: Single AP view of the chest. Findings: Cardiac silhouette contours within normal limits. Mild to moderate pulmonary vascular congestion. Scattered bilateral pulmonary interstitial infiltrates. Possible developing small left effusion. No pneumothorax. Degenerative changes in the shoulders. Atherosclerotic aorta. Elevated right hemidiaphragm. ======== IMPRESSION: ======== 1. Pulmonary vascular congestion with bilateral pulmonary infiltrates. Edema favored with infection not excluded. 2. Probable small left effusion Referred By: Interpreted By: Huseyin Roberto MD, 09/16/2021 5:51 AM ED Course / Medical Decision Making Critical Care Addendum Note: Indication: respiratory failure I provided a total of 45 minutes of critical care excluding separately billable procedures. The time was intermittent distributed over the ED course. This includes time with EM, initial bedside evaluation, review of testing done while under my care, discussion with the family, nurses and guiding the patient???s care while in the emergency department. Approximate time distribution: 15 minutes - Initial evaluation, d/w involved parties, attempting to gather old records 10 minutes - Documenting medical record 5 minutes - Review of results (EKGs, labs, imaging) 10 minutes - Serial repeat bedside evaluation 5 minutes - Discussing case with multiple providers Rhythm Strip: NSR with narrow complex QRS. No ectopic beats seen. EKG: No stemi Pulse Oximetry Result: 92 % Obtained: At rest Supplemental Oxygen: Yes, administered at 3 lpm via nasal cannula Probe Placement: Finger MEDS: Orders Placed This Encounter Medications ??? sodium chloride 0.9% infusion ??? cefTRIAXone (ROCEPHIN) 1 g in sodium chloride 0.9 % 50 mL IVPB ??? azithromycin (ZITHROMAX) 500 mg in sodium chloride 0.9 % 250 mL IVPB ??? sodium chloride 0.9% infusion ??? iopamidol (ISOVUE-370) 76 % injection 100 mL ??? furosemide (LASIX) injection 40 mg Patient is a 81-year-old from home who presents with shortness of breath and hypoxia. Family is unsure of her medical problems and her medications. Patient is demented so cannot give a detailed history. Patient was initially hypoxic so placed on supplemental oxygen. CT shows pulmonary effusions andpossible pneumonia. Patient was started on antibiotics. Patient is also anemic with a hemoglobin of5.8 so was transfused 1 unit of PRBCs. Patient is Hemoccult positive with black stools as well. Will admit patient for further evaluation and treatment. Clinical Impression CHF (congestive heart failure) ([facility]) (Primary) Pneumonia Hypoxia Disposition: Admit Shilpa Chung MD 09/16/21 0719 * Bhavana Ramey RN - 09/16/2021 5:38 AM CDT Pt presents to the ED for SOB that woke her up out of her sleep this morning. Pt has history of dementia. Upon arrival pt was sating 79% on room air. Pt was placed on oxygen. * Bhavana Ramey RN - 09/16/2021 5:32 AM CDT 16G IV started in right AC. documented in this encounter Plan of Treatment Pending Results Name Type Priority Associated Diagnoses Date /Time RBC UNITS, 2 Units Blood Bank STAT 2021 5:29 AM CDT RBC UNITS, 1 Units Blood Bank STAT 2021 5:29 AM CDT RBC UNITS, 1 Units Blood Bank Routine 2021 5:15 AM CDT documented as of this encounter Procedures Procedure Name Priority Date/Time Associated Diagnosis Comments POCT GLUCOSE - ARIZMENDI DOCKED DEVICE Routine 09/19/2021 11:13 AM CDT POCT GLUCOSE - ARIZMENDI DOCKED DEVICE Routine 09/19/2021 5:50 AM CDT BASIC METABOLIC PANEL Routine 09/19/2021 3:15 AM CDT CBC W/DIFF AUTOMATED Routine 09/19/2021 3:15 AM CDT POCT GLUCOSE - ARIZMENDI DOCKED DEVICE Routine 09/18/2021 8:10 PM CDT POCT GLUCOSE - ARIZMENDI DOCKED DEVICE Routine 09/18/2021 4:47 PM CDT CORONAVIRUS (COVID 19) RT PCR Routine 09/18/2021 4:45 PM CDT POCT GLUCOSE - ARIZMENDI DOCKED DEVICE Routine 09/18/2021 11:17 AM CDT POCT GLUCOSE - ARIZMENDI DOCKED DEVICE Routine 09/18/2021 5:29 AM CDT BASIC METABOLIC PANEL Routine 09/18/2021 3:48 AM CDT CBC W/DIFF AUTOMATED Routine 09/18/2021 3:48 AM CDT POCT GLUCOSE - ARIZMENDI DOCKED DEVICE Routine 09/17/2021 8:28 PM CDT POCT GLUCOSE - ARIZMENDI DOCKED DEVICE Routine 09/17/2021 4:52 PM CDT FECAL BLOOD FIT DIAG Routine 09/17/2021 4:20 PM CDT POCT GLUCOSE - ARIZMENDI DOCKED DEVICE Routine 09/17/2021 11:09 AM CDT USE ECHOCARDIOGRAM Today 09/17/2021 10 :53 AM CDT POCT GLUCOSE - ARIZMENDI DOCKED DEVICE Routine 09/17/2021 5:22 AM CDT BASIC METABOLIC PANEL Routine 09/17/2021 4:58 AM CDT CBC W/DIFF AUTOMATED Routine 09/17/2021 4:58 AM CDT MAGNESIUM Routine 09/17/2021 4:58 AM CDT POCT GLUCOSE - ARIZMENDI DOCKED DEVICE Routine 09/16/2021 8:32 PM CDT CBC W/DIFF AUTOMATED Routine 09/16/2021 7:36 PM CDT POCT GLUCOSE - ARIZMENDI DOCKED DEVICE Routine 09/16/2021 4:25 PM CDT TRANSFUSE RED BLOOD CELLS Routine 09/16/2021 3:06 PM CDT POCT GLUCOSE - ARIZMENDI DOCKED DEVICE Routine 09/16/2021 10:36 AM CDT SODIUM URINE RANDOM Routine 09/16/2021 1 0:05 AM CDT HC CREATININE OTH SOURCE Routine 09/16/2021 10:05 AM CDT OSMOLALITY, URINE Routine 09/16/2021 10: 05 AM CDT TRANSFUSE RED BLOOD CELLS STAT 09/16/2021 9:19 AM CDT CTA CHEST STAT 09/16/2021 6:26 AM CDT CULTURE, BACTERIA, BLOOD STAT 09/16/2021 6:02 AM CDT CULTURE, BACTERIA, BLOOD STAT 09/16/2021 6:02 AM CDT XR CHEST PORTABLE STAT 09/16/2021 5:4 2 AM CDT RBC UNITS STAT 09/16/2021 5:29 AM CDT RBC UNITS STAT 09/16/2021 5:29 AM CDT TYPE & SCREEN STAT 09/16/2021 5:29 AM CDT RBC UNITS Routine 09/16/2021 5:15 AM CDT IRON SAT PANEL (IRON,IBC,%SAT) Routine 09/16/2021 5:15 AM CDT THYROID STIM HORMONE TSH Routine 09/16/2021 5:15 AM CDT FERRITIN Routine 09/16/2021 5:15 AM CDT RESPIRATORY PCR PANEL 2 STAT 09/17/19 5:10 AM CDT PRO-BRAIN NATRIURETIC PEPTIDE STAT 09/16/2021 5:08 AM CDT PARTIAL THROMBOPLASTIN TIME,PTT STAT 09/16/2021 5:08 AM CDT PROTHROMBIN TIME, VENOUS STAT 09/16/2021 5:08 AM CDT COMPREHENSIVE METABOLIC PANEL STAT 09/16/2021 5:08 AM CDT CBC W/DIFF AUTOMATED STAT 09/16/2021 5:08 AM CDT TROPONIN, QUANT STAT 09/16/2021 5:08 AM CDT ECG 12-LEAD STAT 09/16/2021 5:05 AM CDT documented in this encounter Results * POCT glucose (09/19/2021 11:13 AM CDT) GLUCOSE POC 136 70 - 139 MG/DL 09/19/2021 11:[address] [facility] 09/19/2021 11:1 3 AM CDT Devon Ramires MD POCT ORDERABLES - DEVICE Fi nal Result [facility] [address] [place] [address], * POCT glucose (09/19/2021 5:50 AM CDT) GLUCOSE POC 132 70 - 139 MG/DL 09/19/2021 5:54 AM CDT [facility] 09/19/2021 5:50 AM CDT Divya Dalal MD POCT ORDERABLES - DEVICE Final Result Performing Organization Address [facility] Co de Phone Number [facility] [address] [place] [address], * (ABNORMAL) CBC W/DIFF AUTOMATED (09/19/2021 3:15 AM CDT) WBC 11.6(H) 4.6 - 9.1 x10'3/uL 09/19/2021 3:57 AM CDT [facility] RBC 4.29 3.90 - 5.00 x10'6/uL 09/19/2021 3:57 AM CDT [facility] HGB 8.7(L) 11.8 - 14.7 G/DL 09/19/2021 3:57 AM CDT [facility] HCT 31.4(L) 36.3 - 45.2 % 09/19/2021 3:57 AM CDT [facility] MCV 73.2(L) 80.0 - 98.0 FL 09/19/2021 3:57 AM CDT [facility] MCH 20.3(L) 26.8 - 32.1 PG 09/19/2021 3:57 AM CDT [facility] MCHC 27.7(L) 30.7 - 34.2 G/DL 09/19/2021 3:57 AM CDT [facility] RDW 26.2(H) 12.0 - 14.8 % 09/19/2021 3:57 AM CDT [facility] PLT 516(H) 145 - 358 x10'3/uL 09/19/2021 3:57 AM CDT [facility] MPV 8.6(L) 8.8 - 12.3 FL 09/19/2021 3:57 AM CDT [facility] SEG NEUTROPHILS 67.8 % 3:57 AM CDT [facility] LYMPHOCYTES 15.6 % 09/19/2021 3:57 AM CDT [facility] MONOCYTES 11.9 % 09/19/2021 3:57 AM CDT [facility] EOSINOPHILS 2.8 % 09/19/2021 3:57 AM CDT [facility] BASOPHILS 1.2 % 09/19/2021 3:57 AM CDT [facility] IMMATURE GRANS % 0.7 % 09/20/19 3:57 AM CDT [facility] NRBC 0.3 % 09/19/2021 3:57 AM CDT [facility] ABS. NEUTROPHILS 7.85(H) 2.30 - 5.70 x10'3/uL 09/19/2021 3:57 AM CDT [facility] ABS. LYMPHOCYTES 1.80 1.10 - 3.30 x10'3/uL 09/19/2021 3:57 AM CDT [facility] ABS. MONOCYTES 1.37(H) 0.30 - 0.80 x10'3/uL 09/19/2021 3:57 AM CDT [facility] ABS. EOSINOPHILS 0.32 0.03 - 0.45 x10'3/uL 09/19/2021 3:57 AM CDT [facility] ABS. BASOPHILS 0.14(H) 0.01 - 0.09 x10'3/uL 09/19/2021 3:57 AM CDT [facility] ABS. IMMATURE GRANULOCYTES 0.08 0.00 - 0.09 x10'3/uL 09/19/2021 3:57 AM CDT [facility] ABS. NUCLEATED RBC'S 0.03 0.00 - 0.12 x10'3/uL 09/19/2021 3:57 AM CDT [facility] 09/19/2021 3:15 AM CDT us Divya Dalal MD LABORATORY Final Result [facility] [address] [place] [address], * (ABNORMAL) BASIC METABOLIC PANEL (09/19/2021 3:15 AM CDT) Pathologist [facility] SODIUM S/P/B 134(L) 136 - 145 MMOL/L 09/19/2021 4:11 AM CDT [facility] POTASSIUM S/P/B 3.5 3.5 - 5.1 MMOL/L 09/19/2021 4:11 AM CDT [facility] CHLORIDE S/P/B 100 98 - 107 MMOL/L 09/19/2021 4:11 AM CDT [facility] CO2 28.0 21.0 - 32.0 MMOL/L 09/19/2021 4:11 AM CDT [facility] GLUCOSE 105 74 - 106 MG/DL 09/19/2021 4:11 AM CDT [facility] BUN 17 7 - 18 MG/DL 09/19/2021 4:11 AM CDT [facility] CREATININE S/P/B 1.08(H) 0.55 - 1.02 MG/DL 09/19/2021 4:11 AM CDT [facility] CALCIUM S/P/B 8.3(L) 8.5 - 10.1 MG/DL 09/19/2021 4:11 AM CDT [facility] ANION GAP 6.0 5.0 - 15.0 MMOL/L 09/19/2021 4:11 AM CDT [facility] OSMOLALITY (CALC) 280 MOSM/KG 022 4:11 AM CDT [facility] Comment:REFERENCE RANGE NOT ESTABLISHED EGFR NON-AFR. AMER. 49(L) >89 ML/MIN/1. 73 M2 09/19/2021 4:11 AM CDT [facility] EGFR AFR. AMER. 57(L) >89 ML/MIN/1. 73 M2 09/19/2021 4:11 AM T [facility] GFR NOTES GFR REFERENCE S: 09/19/2021 4:11 AM T [facility] Comment: THE ESTIMATED GFR IS CALCULATED USING THE 2009 CKD-EPI EQUATION. THE FOLLOWING CATEGORIES FOR GRADING RENAL FUNCTION ARE RECOMMENDED BY THE INTERNATIONAL SOCIETY OF NEPHROLOGY (KDIGO 2012 CLINICAL PRACTICE GUIDELINE). G1,NORMAL OR HIGH: >89 ml/min/1.73 m2 G2,MILDLY DECREASED: 60-89 ml/min/1.73 m2 G3A,MILDLY TO MODERATELY DECREASED: 45-59 ml/min/1.73 m2 G3B,MODERATELY TO SEVERELY DECREASED: 30-44 ml/min/1.73 m2 G4,SEVERELY DECREASED: 15-29 ml/min/1.73 m2 G5,KIDNEY FAILURE: <15 ml/min/1.73 m2 09/19/2021 3:15 AM CDT us Divya Dalal MD LABORATORY Final Result [facility] [address] [place] [address], * POCT glucose (09/18/2021 8:10 PM CDT) GLUCOSE POC 111 70 - 139 MG/DL 09/18/2021 8:15 PM CDT [facility] 09/18/2021 8:10 PM CDT Divya Dalal MD POCT ORDERABLES - DEVICE Final Result Performing Organization Address [facility]/ZIP Co de Phone Number [facility] [address] [place] [address], * POCT glucose (09/18/2021 4:47 PM CDT) GLUCOSE POC 126 70 - 139 MG/DL 09/18/2021 4:51 PM CDT [facility] 09/18/2021 4:47 PM CDT Divya Dalal MD POCT ORDERABLES - DEVICE Final Result Performing Organization Address [facility] Co de Phone Number [facility] [address] [place] [address], * CORONAVIRUS (COVID 19) PCR [place] (09/18/2021 4:45 PM CDT) SPECIMEN SOURCE NASOPHARYNGEAL SWAB 09/18/2021 4:49 PM CDT [facility] CORONAVIRUS SARS COV 2 PCR (RESP) NEGATIVE NEGATIVE 09/18/2021 5:43 PM CDT [facility] Comment: THE SARS-CoV-2 TEST HAS BEEN AUTHORIZED BY THE FDA UNDER AN EUA FOR USE BY AUTHORIZED LABORATORIES. FIRST TEST UNKNOWN 09/18/2021 4:49 PM CDT [facility] EMPLOYED IN HEALTHCARE NO 09/18/2021 4:49 PM CDT [facility] SYMPTOMATIC DEFINED BY CDC NO 09/18/2021 4:49 PM CDT [facility] HOSPITALIZATION STATUS YES 09/18/2021 4:49 PM CDT [facility] PATIENT IN ICU NO 09/18/2021 4:49 PM CDT [facility] RESIDENT OF CONGREGATE CARE NO 09/18/2021 4:49 PM CDT [facility] NASOPHARYNGEAL SWAB / Unknown 09/18/2021 4:45 PM CDT us Divya Dalal MD MICROBIOLOGY - GENERAL ORDERABL ES Final Result [facility] [address] [place] [address], * POCT glucose (09/18/2021 11:17 AM CDT) GLUCOSE POC 130 70 - 139 MG/DL 09/18/2021 11:19 AM CDT [facility] 09/18/2021 11:1 7 AM CDT us Divya Dalal MD POCT ORDERABLES - DEVICE Final Result Performing Organization Address City/[facility]/ZIP Co de Phone Number [facility] [address] [place] [address], [place] [phone] * POCT glucose (09/18/2021 5:29 AM CDT) GLUCOSE POC 97 70 - 139 MG/DL 09/18/2021 5:59 AM CDT [facility] 09/18/2021 5:29 AM CDT us Divya Dalal MD POCT ORDERABLES - DEVICE Final Result Performing Organization Address [facility] Co de Phone Number [facility] [address] [place] [address], [place] [phone] * (ABNORMAL) BASIC METABOLIC PANEL (09/18/2021 3:48 AM CDT) SODIUM S/P/B 135(L) 136 - 145 MMOL/L 09/18/2021 4:44 AM T [facility] POTASSIUM S/P/B 3.7 3.5 - 5.1 MMOL/L 09/18/2021 4:44 AM T [facility] CHLORIDE S/P/B 100 98 - 107 MMOL/L 09/18/2021 4:44 AM T [facility] CO2 29.0 21.0 - 32.0 MMOL/L 09/18/2021 4:44 AM T [facility] GLUCOSE 92 74 - 106 MG/DL 09/18/2021 4:44 AM [facility] BUN 19(H) 7 - 18 MG/DL 09/18/2021 4:44 AM [facility] CREATININE S/P/B 1.04(H) 0.55 - 1.02 MG/DL 09/18/2021 4:44 AM T [facility] CALCIUM S/P/B 7.9(L) 8.5 - 10.1 MG/DL 09/18/2021 4:44 AM [facility] ANION GAP 6.0 5.0 - 15.0 MMOL/L 09/18/2021 4:44 AM [facility] OSMOLALITY (CALC) 282 MOSM/KG 022 4:44 AM [facility] Comment:REFERENCE RANGE NOT ESTABLISHED EGFR NON-AFR. AMER. 51(L) >89 ML/MIN/1. 73 M2 09/18/2021 4:44 AM T [facility] EGFR AFR. AMER. 59(L) >89 ML/MIN/1. 73 M2 09/18/2021 4:44 AM [facility] GFR NOTES GFR REFERENCE S: 09/18/2021 4:44 AM [facility] Comment: THE ESTIMATED GFR IS CALCULATED USING THE 2009 CKD-EPI EQUATION. THE FOLLOWING CATEGORIES FOR GRADING RENAL FUNCTION ARE RECOMMENDED BY THE INTERNATIONAL SOCIETY OF NEPHROLOGY (KDIGO 2012 CLINICAL PRACTICE GUIDELINE). G1,NORMAL OR HIGH: >89 ml/min/1.73 m2 G2,MILDLY DECREASED: 60-89 ml/min/1.73 m2 G3A,MILDLY TO MODERATELY DECREASED: 45-59 ml/min/1.73 m2 G3B,MODERATELY TO SEVERELY DECREASED: 30-44 ml/min/1.73 m2 G4,SEVERELY DECREASED: 15-29 ml/min/1.73 m2 G5,KIDNEY FAILURE: <15 ml/min/1.73 m2 09/18/2021 3:48 AM CDT us Divya Dalal MD LABORATORY Final Result [facility] [address] [place] [address], [place] [phone] * (ABNORMAL) CBC W/DIFF AUTOMATED (09/18/2021 3:48 AM CDT) WBC 10.8(H) 4.6 - 9.1 x10'3/uL 09/18/2021 4:25 AM CDT [facility] RBC 4.10 3.90 - 5.00 x10'6/uL 09/18/2021 4:25 AM CDT [facility] HGB 8.3(L) 11.8 - 14.7 G/DL 09/18/2021 4:25 AM CDT [facility] HCT 29.6(L) 36.3 - 45.2 % 09/18/2021 4:25 AM CDT [facility] MCV 72.2(L) 80.0 - 98.0 FL 09/18/2021 4:25 AM CDT [facility] MCH 20.2(L) 26.8 - 32.1 PG 09/18/2021 4:25 AM CDT [facility] MCHC 28.0(L) 30.7 - 34.2 G/DL 09/18/2021 4:25 AM CDT [facility] RDW 25.2(H) 12.0 - 14.8 % 09/18/2021 4:25 AM CDT [facility] PLT 496(H) 145 - 358 x10'3/uL 09/18/2021 4:25 AM CDT [facility] MPV 8.6(L) 8.8 - 12.3 FL 09/18/2021 4:25 AM CDT [facility] SEG NEUTROPHILS 64.6 % 4:26 AM CDT [facility] LYMPHOCYTES 18.3 % 09/18/2021 4:26 AM CDT [facility] MONOCYTES 12.4 % 09/18/2021 4:26 AM CDT [facility] EOSINOPHILS 2.8 % 09/18/2021 4:26 AM CDT [facility] BASOPHILS 1.3 % 09/18/2021 4:26 AM CDT [facility] IMMATURE GRANS % 0.6 % 09/19/19 4:26 AM CDT [facility] NRBC 0.5 % 09/18/2021 4:26 AM CDT [facility] ABS. NEUTROPHILS 7.01(H) 2.30 - 5.70 x10'3/uL 09/18/2021 4:26 AM CDT [facility] ABS. LYMPHOCYTES 1.98 1.10 - 3.30 x10'3/uL 09/18/2021 4:26 AM CDT [facility] ABS. MONOCYTES 1.34(H) 0.30 - 0.80 x10'3/uL 09/18/2021 4:26 AM CDT [facility] ABS. EOSINOPHILS 0.30 0.03 - 0.45 x10'3/uL 09/18/2021 4:26 AM CDT [facility] ABS. BASOPHILS 0.14(H) 0.01 - 0.09 x10'3/uL 09/18/2021 4:26 AM CDT [facility] ABS. IMMATURE GRANULOCYTES 0.07 0.00 - 0.09 x10'3/uL 09/18/2021 4:26 AM CDT [facility] ABS. NUCLEATED RBC'S 0.05 0.00 - 0.12 x10'3/uL 09/18/2021 4:26 AM CDT [facility] 09/18/2021 3:48 AM CDT us Divya Dalal MD LABORATORY Final Result Performing Organization Address [facility] Co de Phone Number [facility] [address] [place] [address], * (ABNORMAL) POCT glucose (09/17/2021 8:28 PM CDT) GLUCOSE POC 214(H) 70 - 139 MG/DL 09/17/2021 8:44 PM CDT [facility] 09/17/2021 8:28 PM CDT us Divya Dalal MD POCT ORDERABLES - DEVICE Final Result Performing Organization Address [facility] Co de Phone Number [facility] [address] [place] [address], [place] [phone] * POCT glucose (09/17/2021 4:52 PM CDT) GLUCOSE POC 102 70 - 139 MG/DL 09/17/2021 5:02 PM CDT [facility] 09/17/2021 4:52 PM CDT us Divya Dalal MD POCT ORDERABLES - DEVICE Final Result Performing Organization Address [facility]/ZIP Co de Phone Number [facility] [address] [place] [address], * FECAL BLOOD FIT DIAG (09/17/2021 4:20 PM CDT) [facility] FECAL BLOOD FIT DIAGNOSIS NEGATIVE NEGATIVE 09/17/2021 7:14 PM CDT [facility] STOOL SPECIMEN / Unknown 09/17/2021 4:20 PM CDT Divya Dalal MD BODY FLUIDS AND STOOLS ORDERABL ES Final Result Performing Organization Address [facility] de Phone Number [facility] [address] [place] [address], * (ABNORMAL) POCT glucose (09/17/2021 11:09 AM CDT) [facility] GLUCOSE POC 151(H) 70 - 139 MG/DL 09/17/2021 11:24 AM CDT [facility] 09/17/2021 11:0 9 AM CDT Divya Dalal MD POCT ORDERABLES - DEVICE Final Result Performing Organization Address [facility] de Phone Number [facility] [address] [place] [address], * USE ECHOCARDIOGRAM (09/17/2021 10:53 AM CDT) Anatomical Region Laterality Modality Cardiac Echocardiogram 09/17/2021 10:2 0 AM CDT Narrative 09/17/2021 11:21 AM CDT ?Echocardiography Report Pat.Name: ??INDY VALDEZ S ?Pat.ID: ?[id number] ? St.Date: ?? 09/17/2021 ? Refer.: ??[id number], JESSE Red ?? Exam Time: 10:20:00 AM ? Study Type:ECHO WITH CARDIAC DOPPLER COMP Height: ?64in ?Weight: ?139.71lb ? BSA: ? 1.68 m2 ?Age: ??1940,81Y ? Sex: ? FEMALE ?BP: ?132/61 ? Sonogrphr: Janel Starr RDCS ? Pat. Stat.:Inpatient ? Room: ?0607-01 ? CPT - 4: ?66661 ? Reason for Study: Heart failure, IE 33-1 SN [id number] / X5-1 SN [id number] Procedures: ??2D, M-mode, Doppler, Color Flow, Definity was used to enhance endocardial definition. ++++++++++++++++++++++++++++++++++++ SUMMARY: ++++++++++++++++++++++++++++++++++++ The left ventricular size is normal. Estimated left ventricular ejection fraction is 65-70%. Left ventricular diastolic function is abnormal (grade 2 - pseudonormal pattern). The peak pulmonary artery systolic pressure is estimated to be approximately 32 mmHg. Valves normal ++++++++++++++++++++++++++++++++++++ FINDINGS: ++++++++++++++++++++++++++++++++++++ LV: ? The left ventricular size is normal. The left ventricular ?systolic ??function is normal. Estimated left ventricular ?ejection ??fraction is 65-70%. The septal E/e' is ?indeterminate ??at 8-15. The lateral E/e' is elevated at >11. ?Left ??ventricular diastolic function is abnormal (grade 2 - ?pseudonormal ??pattern). RV: ? The right ventricular size is normal. Right ventricular ?systolic ??function is normal. TAPSE = 23.0mm (<16 mm ?indicates ??systolic RV dysfunction). LA: ? The left atrial volume is mildly increased (34- 41ml/M2). RA: ? Right atrial size is normal. MARY: ? No evidence of pericardial effusion. AO: ? Aortic root is not dilated. PA: ? The peak pulmonary artery systolic pressure is estimated to ?be ??approximately 32 mmHg. Estimated right atrial pressure ?of ??8 mmHg. SVn: ?Inferior vena cava shows <50% collapse with respiration ?consistent ??with elevated right atrial pressure. AV: ? The aortic valve is trileaflet. No evidence of aortic valve ?stenosis. ??No evidence of aortic regurgitation. MV: ? Trace mitral regurgitation. No evidence of mitral valve ?stenosis. PV: ? No evidence of pulmonic valve stenosis. No evidence of ?pulmonic ??regurgitation. TV: ? A trace of tricuspid regurgitation. No evidence of tricuspid ?valve ??stenosis. ++++++++++++++++++++++++++++++++++++ MEASUREMENTS: ++++++++++++++++++++++++++++++++++++ ?2D Aorta ?? Ao Asc ? 2.8 cm ?? (2.1-3.4) LVOT ?? LVOT ? 1.8 cm ?LVOTArea ?2.54 cm2 LA Biplane LAVol I BP ?38.7 ml/m2 ? Left Ventricle ?? LVEDV BP ?77 ml ?LV EF BP ?71 % ?? LVESV BP ?22 ml ?LV SV BP ?55 ml ?MMODE Left Ventricle ?? LVIDd ? 5.52 cm ?? (zsc 1.9)+ LV%fs ? 36.2 % ?(28-41) LVIDs ? 3.52 cm ?? (zsc 1.6)+ LV EF ? 65.4 % ?(45-90) LVPW ?? LVPWd ?0.985 cm ?? (zsc 2)+ Ventricular Septum ?? IVSd ? 0.963 cm ?? (zsc 1.7)+ Ratios ?? IVS LA/Ao ? 1.37 ?(0.87-1.1)* Left Atrium ?? LAID ? 4.1 cm ?? (zsc 2.6)* Aorta ?? Ao Rt ?3 cm ?? (zsc 1) ?DOPPLER LVOT ?? LVOTpkPG ? 4 mmHg ?LVOTmnPG ? 2 mmHg LVOTpkVel ?106 cm/s (70-110) LVOT SV ? 62 ml ?? LVOT TVI ?24.3 cm ?LVOT CO ? 81.7 ml/s Pulmonary Veins ?? PVnpkVeld ? 64.7 cm/s ?PVnVs/Vd ? 1.1 ? PVnpkVels ? 72.1 cm/s ? AV Forward Flow AV TVI ?33.9 cm ?AV pkPG ?8 mmHg AV pkVel ? 142 cm/s (100-170) Area (TVI) ?1.82 cm2 ??(3-5)* AV mnPG ?4 mmHg ?Area (Patrick) ? 1.9 cm2 ??(3- 5)* Mitral Valve ?? MV pkVel ? 127 cm/s ? MV Forward Flow MV DeTm ?264 ms ?MV pkPG ?6 mmHg MVA P1/2t ? 2.65 cm2 ??(4-6)* ?? MV mnVel ?77.3 cm/s MV P1/2t ?83 ms ?? (30-60)+* MV E/A ? 1.1 ? MV mnPG ?3 mmHg ?MV pkE ?94.3 cm/s (60-130) MV TVI ?35.3 cm ?? (10-13)+* MV pkA ?84.9 cm/s PV Forward Flow PV pkVel ? 103 cm/s (60-90)+* PV pkPG ?4 mmHg TV Regurg Flow TV pkPG ? 24 mmHg ? TV pkVel ? 245 cm/s (30-70)+* TV Forward Flow TV E/A ? 1.4 ? TV pkA ?51.3 cm/s TV pkE ?70.6 cm/s ? Lat E' ?? Lat e ? 7.35 cm/s ? Lat E/E' ?? Lat E/e ? 12.8 ? Med E' ?? Med e ? 7.79 cm/s ? Med E/E' ?? Med E/e ? 12.1 ? Ant A` Patrick ?? Blood velocity ?? 10.9 cm/s ? Ant E` Patrick ?? Blood velocity ?? 9.32 cm/s ? Ant S Patrick ?? Blood velocity ? 12 cm/s ? LA 2C ?? Value ? 32.7 ml/m2 ? LA 4C ?? Value ? 43.5 ml/m2 ? LA BP Index ?? Value ? 38.7 ml/m2 ? Lat MA ?? LV Peak Couch Ti ??7.46 cm/s ? Ratio of LV E t ? 1 ? Left Ventricle ?? LV IVRT ? 67 ms ? LVOT/AV VTI ?? Value ?0.7 ? Med MA ?? LV Peak Couch Ti ??8.22 cm/s ? Ratio of LV E t ?? 0.9 ? RA AREA ?? Area ?10.4 cm2 ? RV / LV Ratio ?? Value ?0.9 ? RV Area ?? Area ?20.9 cm2 ? TAPSE ?? Distance ? 2.3 cm ? Signed 09/17/2021 11:21 AM Koki Agarwal M.D. Procedure Note Koki Agarwal MD - 09/17/2021 Echocardiography Report Pat.Name: INDY VALDEZ Pat.ID: [id number] St.Date: 09/17/2021 Refer.: [id number], JESSE MASSEY H Exam Time: 10:20:00 AM Study Type:ECHO WITH CARDIAC DOPPLER COMP Height: 64in Weight: 139.71lb BSA: 1.68 m2 Age: 2 1940,81Y Sex: FEMALE BP: 132/61 Sonogrphr: Janel Starr [facility] Pat. Stat.:Inpatient Room: 606-06 CPT - 4: 83204 Reason for Study: Heart failure, IE 33-1 SN [id number] / X5-1 SN [id number] Procedures: 2D, M-mode, Doppler, Color Flow, Definity was used to enhance endocardial definition. ++++++++++++++++++++++++++++++++++++ SUMMARY: ++++++++++++++++++++++++++++++++++++ The left ventricular size is normal. Estimated left ventricular ejection fraction is 65-70%. Left ventricular diastolic function is abnormal (grade 2 - pseudonormal pattern). The peak pulmonary artery systolic pressure is estimated to be approximately 32 mmHg. Valves normal ++++++++++++++++++++++++++++++++++++ FINDINGS: ++++++++++++++++++++++++++++++++++++ LV: The left ventricular size is normal. The left ventricular systolic function is normal. Estimated left ventricular ejection fraction is 65-70%. The septal E/e' is indeterminate at 8-15. The lateral E/e' is elevated at >11. Left ventricular diastolic function is abnormal (grade 2 - pseudonormal pattern). RV: The right ventricular size is normal. Right ventricular systolic function is normal. TAPSE = 23.0mm (<16 mm indicates systolic RV dysfunction). LA: The left atrial volume is mildly increased (34- 41ml/M2). RA: Right atrial size is normal. MARY: No evidence of pericardial effusion. AO: Aortic root is not dilated. PA: The peak pulmonary artery systolic pressure is estimated to be approximately 32 mmHg. Estimated right atrial pressure of 8 mmHg. SVn: Inferior vena cava shows <50% collapse with respiration consistent with elevated right atrial pressure. AV: The aortic valve is trileaflet. No evidence of aortic valve stenosis. No evidence of aortic regurgitation. MV: Trace mitral regurgitation. No evidence of mitral valve stenosis. PV: No evidence of pulmonic valve stenosis. No evidence of pulmonic regurgitation. TV: A trace of tricuspid regurgitation. No evidence of tricuspid valve stenosis. ++++++++++++++++++++++++++++++++++++ MEASUREMENTS: ++++++++++++++++++++++++++++++++++++ 2D Aorta Ao Asc 2.8 cm (2.1-3.4) LVOT LVOT 1.8 cm LVOTArea 2.54 cm2 LA Biplane LAVol I BP 38.7 ml/m2 Left Ventricle LVEDV BP 77 ml LV EF BP 71 % LVESV BP 22 ml LV SV BP 55 ml MMODE Left Ventricle LVIDd 5.52 cm (zsc 1.9)+ LV%fs 36.2 % (28-41) LVIDs 3.52 cm (zsc 1.6)+ LV EF 65.4 % (45-90) LVPW LVPWd 0.985 cm (zsc 2)+ Ventricular Septum IVSd 0.963 cm (zsc 1.7)+ Ratios IVS LA/Ao 1.37 (0.87-1.1)* Left Atrium LAID 4.1 cm (zsc 2.6)* Aorta Ao Rt 3 cm (zsc 1) DOPPLER LVOT LVOTpkPG 4 mmHg LVOTmnPG 2 mmHg LVOTpkVel 106 cm/s (70-110) LVOT SV 62 ml LVOT TVI 24.3 cm LVOT CO 81.7 ml/s Pulmonary Veins PVnpkVeld 64.7 cm/s PVnVs/Vd 1.1 PVnpkVels 72.1 cm/s AV Forward Flow AV TVI 33.9 cm AV pkPG 8 mmHg AV pkVel 142 cm/s (100-170) Area (TVI) 1.82 cm2 (3-5)* AV mnPG 4 mmHg Area (Patrick) 1.9 cm2 (3-5)* Mitral Valve MV pkVel 127 cm/s MV Forward Flow MV DeTm 264 ms MV pkPG 6 mmHg MVA P1/2t 2.65 cm2 (4-6)* MV mnVel 77.3 cm/s MV P1/2t 83 ms (30-60)+* MV E/A 1.1 MV mnPG 3 mmHg MV pkE 94.3 cm/s (60-130) MV TVI 35.3 cm (10-13)+* MV pkA 84.9 cm/s PV Forward Flow PV pkVel 103 cm/s (60-90)+* PV pkPG 4 mmHg TV Regurg Flow TV pkPG 24 mmHg TV pkVel 245 cm/s (30-70)+* TV Forward Flow TV E/A 1.4 TV pkA 51.3 cm/s TV pkE 70.6 cm/s Lat E' Lat e 7.35 cm/s Lat E/E' Lat E/e 12.8 Med E' Med e 7.79 cm/s Med E/E' Med E/e 12.1 Ant A` Patrick Blood velocity 10.9 cm/s Ant E` Patrick Blood velocity 9.32 cm/s Ant S Patrick Blood velocity 12 cm/s LA 2C Value 32.7 ml/m2 LA 4C Value 43.5 ml/m2 LA BP Index Value 38.7 ml/m2 Lat MA LV Peak Couch Ti 7.46 cm/s Ratio of LV E t 1 Left Ventricle LV IVRT 67 ms LVOT/AV VTI Value 0.7 Med MA LV Peak Couch Ti 8.22 cm/s Ratio of LV E t 0.9 RA AREA Area 10.4 cm2 RV / LV Ratio Value 0.9 RV Area Area 20.9 cm2 TAPSE Distance 2.3 cm Signed 09/17/2021 11:21 AM Kkoi Agarwal M.D. Divya Dalal MD ECHO Final Result * POCT glucose (09/17/2021 5:22 AM CDT) [facility] GLUCOSE POC 118 70 - 139 MG/DL 09/17/2021 5:34 AM CDT [facility] 09/17/2021 5:22 AM CDT Divya Dalal MD POCT ORDERABLES - DEVICE Final Result [facility] [address] [place] [address], * (ABNORMAL) BASIC METABOLIC PANEL (09/17/2021 4:58 AM CDT) SODIUM S/P/B 134(L) 136 - 145 MMOL/L 09/17/2021 5:52 AM CDT [facility] POTASSIUM S/P/B 3.3(L) 3.5 - 5.1 MMOL/L 09/17/2021 5:52 AM CDT [facility] CHLORIDE S/P/B 99 98 - 107 MMOL/L 09/17/2021 5:52 AM CDT [facility] CO2 31.0 21.0 - 32.0 MMOL/L 09/17/2021 5:52 AM T [facility] GLUCOSE 105 74 - 106 MG/DL 09/17/2021 5:52 AM [facility] BUN 15 7 - 18 MG/DL 09/17/2021 5:52 AM T [facility] CREATININE S/P/B 0.97 0.55 - 1.02 MG/DL 09/17/2021 5:52 AM [facility] CALCIUM S/P/B 8.1(L) 8.5 - 10.1 MG/DL 09/17/2021 5:52 AM [facility] ANION GAP 4.0(L) 5.0 - 15.0 MMOL/L 09/17/2021 5:52 AM [facility] OSMOLALITY (CALC) 279 MOSM/KG 022 5:52 AM [facility] Comment:REFERENCE RANGE NOT ESTABLISHED EGFR NON-AFR. AMER. 56(L) >89 ML/MIN/1. 73 M2 09/17/2021 5:52 AM [facility] EGFR AFR. AMER. 64(L) >89 ML/MIN/1. 73 M2 09/17/2021 5:52 AM [facility] GFR NOTES GFR REFERENCE S: 09/17/2021 5:52 AM [facility] Comment: THE ESTIMATED GFR IS CALCULATED USING THE 2009 CKD-EPI EQUATION. THE FOLLOWING CATEGORIES FOR GRADING RENAL FUNCTION ARE RECOMMENDED BY THE INTERNATIONAL SOCIETY OF NEPHROLOGY (KDIGO 2012 CLINICAL PRACTICE GUIDELINE). G1,NORMAL OR HIGH: >89 ml/min/1.73 m2 G2,MILDLY DECREASED: 60-89 ml/min/1.73 m2 G3A,MILDLY TO MODERATELY DECREASED: 45-59 ml/min/1.73 m2 G3B,MODERATELY TO SEVERELY DECREASED: 30-44 ml/min/1.73 m2 G4,SEVERELY DECREASED: 15-29 ml/min/1.73 m2 G5,KIDNEY FAILURE: <15 ml/min/1.73 m2 09/17/2021 4:58 AM CDT us Divya Dalal MD LABORATORY Final Result [facility] [address] [place] [address], * (ABNORMAL) CBC W/DIFF AUTOMATED (09/17/2021 4:58 AM CDT) WBC 8.3 4.6 - 9.1 x10'3/uL 09/17/2021 5:52 AM CDT [facility] RBC 3.93 3.90 - 5.00 x10'6/uL 09/17/2021 5:52 AM CDT [facility] HGB 8.1(L) 11.8 - 14.7 G/DL 09/17/2021 5:52 AM CDT [facility] HCT 27.8(L) 36.3 - 45.2 % 09/17/2021 5:52 AM CDT [facility] MCV 70.7(L) 80.0 - 98.0 FL 09/17/2021 5:52 AM CDT [facility] MCH 20.6(L) 26.8 - 32.1 PG 09/17/2021 5:52 AM CDT [facility] MCHC 29.1(L) 30.7 - 34.2 G/DL 09/17/2021 5:52 AM CDT [facility] RDW 24.9(H) 12.0 - 14.8 % 09/17/2021 5:52 AM CDT [facility] PLT 502(H) 145 - 358 x10'3/uL 09/17/2021 5:52 AM CDT [facility] MPV 8.8 8.8 - 12.3 FL 09/17/2021 5:52 AM CDT [facility] NRBC 0.2 % 09/17/2021 6:38 AM CDT [facility] BASOPHILS 1.5 % 09/17/2021 6:38 AM CDT [facility] EOSINOPHILS 2.3 % 09/17/2021 6:38 AM CDT [facility] MONOCYTES 12.7 % 09/17/2021 6:38 AM CDT [facility] LYMPHOCYTES 19.3 % 09/17/2021 6:38 AM CDT [facility] SEG NEUTROPHILS 63.8 % 6:38 AM CDT [facility] IMMATURE GRANS % 0.4 % 09/18/19 6:38 AM CDT [facility] ABS. LYMPHOCYTES 1.60 1.10 - 3.30 x10'3/uL 09/17/2021 6:38 AM CDT [facility] ABS. MONOCYTES 1.05(H) 0.30 - 0.80 x10'3/uL 09/17/2021 6:38 AM CDT [facility] ABS. EOSINOPHILS 0.19 0.03 - 0.45 x10'3/uL 09/17/2021 6:38 AM CDT [facility] ABS. BASOPHILS 0.12(H) 0.01 - 0.09 x10'3/uL 09/17/2021 6:38 AM CDT [facility] ABS. NUCLEATED RBC'S 0.02 0.00 - 0.12 x10'3/uL 09/17/2021 6:38 AM CDT [facility] ABS. NEUTROPHILS 5.30 2.30 - 5.70 x10'3/uL 09/17/2021 6:38 AM CDT [facility] ABS. IMMATURE GRANULOCYTES 0.03 0.00 - 0.09 x10'3/uL 09/17/2021 6:38 AM CDT [facility] RBC MORPHOLOGY 2+ 09/17/2021 6:38 AM CDT [facility] Comment: ANISOCYTOSIS 1+ POLYCHROMASIA 1+ HYPOCHROMASIA 1+ TARGET CELLS 1+ OVALOCYTES 09/17/2021 4:58 AM CDT us Divya Dlaal MD LABORATORY Final Result Performing Organization Address City/[facility]/ZIP Co de Phone Number [facility] [address] [place] [address], [place] [phone] * MAGNESIUM (09/17/2021 4:58 AM CDT) [facility] MAGNESIUM 2.1 1.6 - 2.6 MG/DL 09/17/2021 5:52 AM CDT [facility] 09/17/2021 4:58 AM CDT us Divya Dalal MD LABORATORY Final Result Performing Organization Address [facility] Co de Phone Number [facility] [address] [place] [address], [place] [phone] * (ABNORMAL) POCT glucose (09/16/2021 8:32 PM CDT) [facility] GLUCOSE POC 151(H) 70 - 139 MG/DL 09/16/2021 8:38 PM CDT [facility] 09/16/2021 8:32 PM CDT us Divya Dalal MD POCT ORDERABLES - DEVICE Final Result Performing Organization Address City/[facility] Co de Phone Number [facility] [address] [place] [address], [place] [phone] * (ABNORMAL) CBC W/DIFF AUTOMATED (09/16/2021 7:36 PM CDT) [facility] WBC 10.3(H) 4.6 - 9.1 x10'3/uL 09/16/2021 8:47 PM CDT [facility] RBC 4.11 3.90 - 5.00 x10'6/uL 09/16/2021 8:47 PM CDT [facility] HGB 8.4(L) 11.8 - 14.7 G/DL 09/16/2021 8:47 PM CDT [facility] HCT 29.4(L) 36.3 - 45.2 % 09/16/2021 8:47 PM CDT [facility] Comment:RECHECKED MCV 71.5(L) 80.0 - 98.0 FL 09/16/2021 8:47 PM CDT [facility] Comment:RECHECKED MCH 20.4(L) 26.8 - 32.1 PG 09/16/2021 8:47 PM CDT [facility] Comment:RECHECKED MCHC 28.6(L) 30.7 - 34.2 G/DL 09/16/2021 8:47 PM CDT [facility] RDW 25.5(H) 12.0 - 14.8 % 09/16/2021 8:47 PM CDT [facility] PLT 548(H) 145 - 358 x10'3/uL 09/16/2021 8:47 PM CDT [facility] MPV 8.6(L) 8.8 - 12.3 FL 09/16/2021 8:47 PM CDT [facility] NRBC 0.5 % 09/16/2021 9:58 PM CDT [facility] BASOPHILS 1.4 % 09/16/2021 9:58 PM CDT [facility] EOSINOPHILS 1.1 % 09/16/2021 9:58 PM CDT [facility] MONOCYTES 11.2 % 09/16/2021 9:58 PM CDT [facility] LYMPHOCYTES 16.6 % 09/16/2021 9:58 PM CDT [facility] SEG NEUTROPHILS 69.2 % 9:58 PM CDT [facility] IMMATURE GRANS % 0.5 % 09/17/19 9:58 PM CDT [facility] ABS. NUCLEATED RBC'S 0.05 0.00 - 0.12 x10'3/uL 09/16/2021 9:58 PM CDT [facility] ABS. BASOPHILS 0.14(H) 0.01 - 0.09 x10'3/uL 09/16/2021 9:58 PM CDT [facility] ABS. EOSINOPHILS 0.11 0.03 - 0.45 x10'3/uL 09/16/2021 9:58 PM CDT [facility] ABS. MONOCYTES 1.15(H) 0.30 - 0.80 x10'3/uL 09/16/2021 9:58 PM CDT [facility] ABS. LYMPHOCYTES 1.71 1.10 - 3.30 x10'3/uL 09/16/2021 9:58 PM CDT [facility] ABS. NEUTROPHILS 7.13(H) 2.30 - 5.70 x10'3/uL 09/16/2021 9:58 PM CDT [facility] ABS. IMMATURE GRANULOCYTES 0.05 0.00 - 0.09 x10'3/uL 09/16/2021 9:58 PM CDT [facility] RBC MORPHOLOGY 1+ 09/16/2021 9:58 PM CDT [facility] Comment: SCHISTOCYTES 2+ ANISOCYTOSIS 3+ HYPOCHROMASIA 09/16/2021 7:36 PM CDT us Divya Dalal MD LABORATORY Final Result [facility] [address] [place] [address], [place] [phone] * TRANSFUSE RED BLOOD CELLS (09/16/2021 6:40 PM CDT) us Divya Dalal MD NURSING TREATMENT ORDERABLES - BLOOD ADMIN Final Result * (ABNORMAL) POCT glucose (09/16/2021 4:25 PM CDT) GLUCOSE POC 229(H) 70 - 139 MG/DL 09/16/2021 4:34 PM CDT [facility] 09/16/2021 4:25 PM CDT us Divya Dalal MD POCT ORDERABLES - DEVICE Final Result Performing Organization Address [facility] Co de Phone Number [facility] [address] [place] [address], * TRANSFUSE RED BLOOD CELLS (09/16/2021 12:49 PM CDT) us Shilpa Chung MD NURSING TREATMENT ORDERABLES - B LOOD ADMIN Final Result * TRANSFUSE RED BLOOD CELLS, 1 Units (09/16/2021 12:49 PM CDT) us Shilpa Chung MD NURSING TREATMENT ORDERABLES - B LOOD ADMIN Final Result * (ABNORMAL) POCT glucose (09/16/2021 10:36 AM CDT) GLUCOSE POC 165(H) 70 - 139 MG/DL 09/16/2021 10:43 AM CDT [facility] 09/16/2021 10:3 6 AM CDT us Divya Dalal MD POCT ORDERABLES - DEVICE Final Result Performing Organization Address [facility]/ZIP Co de Phone Number [facility] [address] [place] [address], * OSMOLALITY, URINE (09/16/2021 10:05 AM CDT) OSMOLALITY (U) 198 50 - 1,200 MOSM/KG 09/16/2021 11:18 AM CDT [facility] URINE SPECIMEN / Unknown 09/16/2021 10:05 AM CDT us Divya aDlal MD URINE ORDERABLES Final Result Performing Organization Address [facility]/ZIP Co de Phone Number [facility] [address] [place] [address], [place] [phone] * CREATININE URINE RANDOM (09/16/2021 10:05 AM CDT) CREATININE (U) <13.0 MG/DL 09/16/2021 11:27 AM CDT [facility] Comment:REFERENCE RANGE NOT ESTABLISHED URINE SPECIMEN / Unknown 09/16/2021 10:05 AM CDT us Divya Daall MD URINE ORDERABLES Final Result Performing Organization Address [facility] Co de Phone Number [facility] [address] [place] [address], [place] [phone] * SODIUM URINE RANDOM (09/16/2021 10:05 AM CDT) NA RANDOM (U) 65 MMOL/L 09/16/2021 11:27 AM CDT [facility] Comment:REFERENCE RANGE NOT ESTABLISHED URINE SPECIMEN / Unknown 09/16/2021 10:05 AM CDT us Divya Dalal MD URINE ORDERABLES Final Result Performing Organization Address [facility] Co de Phone Number [facility] [address] [place] [address], [place] [phone] * CTA CHEST (09/16/2021 6:26 AM CDT) Anatomical Region Laterality Modality Chest Computed Tomogra phy Narrative 09/16/2021 7:01 AM CDT CTA CHEST WITH CONTRAST CLINICAL INDICATION: Suspected pulmonary embolus COMPARISON: None. TECHNIQUE: 55 mL Isovue-370 administered intravenously. CTA images of the chest were obtained. Three-dimensional volume reconstructions were generated. CT dose lowering techniques were used, to include: automated exposure control, adjustment for patient size, and or use of iterative reconstruction. FINDINGS: CTA: No pulmonary arterial filling defect. Heart size normal without pericardial effusion. Mediastinal vessels normal in caliber and patency. Mediastinum: Mildly enlarged mediastinal nodes measuring up to 8 mm in short axis. Central airways are patent. Small hiatal hernia. Visualized thyroid gland is normal. Lungs and pleura: Bilateral pleural effusions with adjacent patchy areas of consolidation and groundglass opacity. Central/right perihilar groundglass opacities are also noted with diffuse interlobular septal thickening. Upper abdomen: Granulomatous calcifications in the spleen. Body wall: No acute abnormality. Bones: No acute osseous abnormality. IMPRESSION: Findings suggestive of pulmonary edema with bilateral pleural effusions. However, an infectious or inflammatory process could also have this appearance in the appropriate clinical setting. No CT evidence of acute pulmonary embolus. Electronically signed by: ??Angelica Boudreaux 09/16/2021 7:01:00 AM Procedure Note Angelica Boudreaux DO - 09/16/2021 CTA CHEST WITH CONTRAST CLINICAL INDICATION: Suspected pulmonary embolus COMPARISON: None. TECHNIQUE: 55 mL Isovue-370 administered intravenously. CTA images of thechest were obtained. Three-dimensional volume reconstructions weregenerated. CT dose lowering techniques were used, to include: automatedexposure control, adjustment for patient size, and or use of iterativereconstruction. FINDINGS: CTA: No pulmonary arterial filling defect. Heart size normal withoutpericardial effusion. Mediastinal vessels normal in caliber and patency. Mediastinum: Mildly enlarged mediastinal nodes measuring up to 8 mm inshort axis. Central airways are patent. Small hiatal hernia. Visualizedthyroid gland is normal. Lungs and pleura: Bilateral pleural effusions with adjacent patchy areasof consolidation and groundglass opacity. Central/right perihilargroundglass opacities are also noted with diffuse interlobular septalthickening. Upper abdomen: Granulomatous calcifications in the spleen. Body wall: No acute abnormality. Bones: No acute osseous abnormality. IMPRESSION: Findings suggestive of pulmonary edema with bilateral pleural effusions.However, an infectious or inflammatory process could also have thisappearance in the appropriate clinical setting. No CT evidence of acute pulmonary embolus. Electronically signed by: Angelica Boudreaux 09/16/2021 7:01:00 AM us Shilpa Chung MD CT Final Result * CULTURE, BACTERIA, BLOOD (09/16/2021 6:02 AM CDT) SPEC DESCRIPTION BLOOD: LAC 09/16/2021 5:54 AM CDT [facility] SPECIAL REQUESTS NO SPECIAL REQUEST 09/16/2021 5:54 AM CDT [facility] CULTURE RESULT NO GROWTH 6 DAYS 09/22/2021 6:47 AM CDT [facility] BLOOD SPECIMEN OBTAINED FOR BLOOD CULTURE / Unknown 09/16/2021 6:02 AM CDT 09/16/2021 6:10 AM CDT Comment:SIGIFREDO us Shilpa Chung MD MICROBIOLOGY - GENERAL ORDERABLE S Final Result [facility] [address] [place] [address], [place] [phone] * CULTURE, BACTERIA, BLOOD (09/16/2021 6:02 AM CDT) SPEC DESCRIPTION BLOOD: RAC 09/16/2021 5:54 AM CDT [facility] SPECIAL REQUESTS NO SPECIAL REQUEST 09/16/2021 5:54 AM CDT [facility] CULTURE RESULT NO GROWTH 6 DAYS 09/22/2021 6:47 AM CDT [facility] BLOOD SPECIMEN OBTAINED FOR BLOOD CULTURE / Unknown 09/16/2021 6:02 AM CDT 09/16/2021 6:09 AM CDT Comment:KAELYN us Shilpa Chung MD MICROBIOLOGY - GENERAL ORDERABLE S Final Result [facility] [address] [place] [address], * XR CHEST PORTABLE (09/16/2021 5:42 AM CDT) Anatomical Region Laterality Modality Chest Radiographic Mabel ging 09/16/2021 5:51 AM CDT Impressions 09/16/2021 5:51 AM CDT IMPRESSION: ======== ?? 1. ??Pulmonary vascular congestion with bilateral pulmonary infiltrates. ??Edema favored with infection not excluded. 2. ??Probable small left effusion Referred By: ?? Interpreted By: Huseyin Roberto MD, 09/16/2021 5:51 AM Narrative 09/16/2021 5:51 AM CDT Examination: Chest Radiograph, 1 view Exam Date/Time: 09/16/2021 5:42 AM Reason For Exam: ??chf ?? Shortness of breath Comparison: None Technique: Single AP view of the chest. Findings: ??Cardiac silhouette contours within normal limits. ??Mild to moderate pulmonary vascular congestion. ??Scattered bilateral pulmonary interstitial infiltrates. ??Possible developing small left effusion. ??No pneumothorax. ??Degenerative changes in the shoulders. ??Atherosclerotic aorta. ??Elevated right hemidiaphragm. ======== Procedure Note Huseyin Roberto MD - 09/16/2021 Examination: Chest Radiograph, 1 view Exam Date/Time: 09/16/2021 5:42 AM Reason For Exam: chf Shortness of breath Comparison: None Technique: Single AP view of the chest. Findings: Cardiac silhouette contours within normal limits. Mild tomoderate pulmonary vascular congestion. Scattered bilateral pulmonaryinterstitial infiltrates. Possible developing small left effusion. Nopneumothorax. Degenerative changes in the shoulders. Atheroscleroticaorta. Elevated right hemidiaphragm. ======== IMPRESSION: ======== 1. Pulmonary vascular congestion with bilateral pulmonary infiltrates.Edema favored with infection not excluded. 2. Probable small left effusion Referred By: Interpreted By: Huseyin Roberto MD, 09/16/2021 5:51 AM Shilpa Chung MD GENERAL IMAGING Final Result * TYPE & SCREEN (09/16/2021 5:29 AM CDT) UNITS ORDERED 3 09/16/2021 6:15 AM CDT [facility] ABO/RH O POSITIVE 09/16/2021 6:15 AM CDT [facility] ANTIBODY SCREEN NEGATIVE 6:40 AM CDT [facility] SAMPLE EXPIRATION 09/19/2021,2359 09/16/2021 6:15 AM CDT [facility] BLOOD UNIT NUMBER [id number] 09/16/2021 6:43 AM CDT [facility] PRODUCT: PC [place] 09/16/2021 6:43 AM CDT [facility] UNIT DIVISION 00 09/16/2021 6:43 AM CDT [facility] BLOOD UNIT STATUS UNIT RELEASED 09/20/2021 8:16 AM CDT [facility] TRANSFUSION STATUS OK TO TRANSFUSE 09/16/2021 6:43 AM CDT [facility] CROSSMATCH COMPATIBLE 09/16/2021 6:43 AM CDT [facility] BLOOD UNIT NUMBER [id number] 09/16/2021 6:43 AM CDT [facility] PRODUCT: PC [place] 09/16/2021 6:43 AM CDT [facility] UNIT DIVISION 00 09/16/2021 6:43 AM [facility]T [facility] [facility] STATUS TRANSFUSED,FINAL 09/17/2021 10:53 AM CDT [facility] ISSUE DATE/TIME [id number] 10:53 AM CDT [facility] PRODUCT CODE [id number] 09/17/2021 10:53 AM CDT [facility] ABO/RH Unit O POS 09/17/2021 10:53 AM CDT [facility] ABO/RH UNIT ISBT CODE 5100 09/17/2021 10:53 AM CDT [facility] BLOOD UNIT EXPIRATION DATE [id number] 09/17/2021 10:53 AM CDT [facility] TRANSFUSION STATUS OK TO TRANSFUSE 09/16/2021 6:43 AM CDT [facility] CROSSMATCH COMPATIBLE 09/16/2021 6:43 AM CDT [facility] BLOOD UNIT NUMBER [id number] 09/16/2021 6:43 AM CDT [facility] PRODUCT: PC LEUKOPOOR 09/16/2021 6:43 AM CDT [facility] UNIT DIVISION 00 09/16/2021 6:43 AM CDT [facility] BLOOD UNIT STATUS TRANSFUSED,FINAL 09/17/2021 10:53 AM CDT [facility] ISSUE DATE/TIME [id number] 10:53 AM CDT [facility] PRODUCT CODE [id number] 09/17/2021 10:53 AM CDT [facility] ABO/RH Unit O POS 09/17/2021 10:53 AM CDT [facility] ABO/RH UNIT ISBT CODE 5100 09/17/2021 10:53 AM CDT [facility] BLOOD UNIT EXPIRATION DATE [id number] 09/17/2021 10:53 AM CDT [facility] TRANSFUSION STATUS OK TO TRANSFUSE 09/16/2021 6:43 AM CDT [facility] CROSSMATCH COMPATIBLE 09/16/2021 6:43 AM CDT [facility] 09/16/2021 5:29 AM CDT Shilpa Chung MD BLOOD BANK TEST ORDERABLES Final Result Performing Organization Address [facility] Co de Phone Number [facility] [address] [place] [address], * THYROID STIM HORMONE, TSH (09/16/2021 5:15 AM CDT) TSH 2.110 0.358 - 3.740 uIU/ML 09/16/2021 8:35 AM CDT [facility] 09/16/2021 5:15 AM CDT Divya Dalal MD LABORATORY Final Result Performing Organization Address [facility] Co de Phone Number [facility] [address] [place] [address], * (ABNORMAL) FERRITIN (09/16/2021 5:15 AM CDT) FERRITIN 7.7(L) 8.0 - 252.0 NG/ML 09/16/2021 8:35 AM CDT [facility] 09/16/2021 5:15 AM CDT Divya Dalal MD LABORATORY Final Result Performing Organization Address [facility] Co de Phone Number [facility] [address] [place] [address], * (ABNORMAL) IRON SAT PANEL (IRON,IBC,%SAT) (09/16/2021 5:15 AM CDT) [facility] IRON 14(L) 50 - 170 MCG/DL 09/16/2021 8:35 AM CDT [facility] IRON BINDING CAPACITY 594(H) 250 - 450 MCG/DL 09/16/2021 8:35 AM CDT [facility] IRON SATURATION 2 % 8:35 AM CDT [facility] Comment:REFERENCE RANGE NOT ESTABLISHED 09/16/2021 5:15 AM CDT Divya Dalal MD LABORATORY Final Result [facility] [address] [place] [address], * RESPIRATORY PCR PANEL 2 (09/16/2021 5:10 AM CDT) [facility] ADENOVIRUS PCR (RESP) NOT DETECTED NOT DETECTED 09/16/2021 6:47 AM CDT [facility] CORONAVIRUS 229E PCR (RESP) NOT DETECTED NOT DETECTED 09/16/2021 6:47 AM CDT [facility] CORONAVIRUS HKU1 PCR (RESP) NOT DETECTED NOT DETECTED 09/16/2021 6:47 AM CDT [facility] CORONAVIRUS NL63 PCR (RESP) NOT DETECTED NOT DETECTED 09/16/2021 6:47 AM CDT [facility] CORONAVIRUS OC43 PCR (RESP) NOT DETECTED NOT DETECTED 09/16/2021 6:47 AM CDT [facility] METAPNEUMOVIRUS PCR (RESP) NOT DETECTED NOT DETECTED 09/16/2021 6:47 AM CDT [facility] RHINOVIRUS/ENTEROV IRUS PCR (RESP) NOT DETECTED NOT DETECTED 09/16/2021 6:47 AM CDT [facility] INFLUENZA A PCR (RESP) NOT DETECTED NOT DETECTED 09/16/2021 6:47 AM CDT [facility] INFLUENZA B PCR (RESP) NOT DETECTED NOT DETECTED 09/16/2021 6:47 AM CDT [facility] PARAINFLUENZA 1 PCR (RESP) NOT DETECTED NOT DETECTED 09/16/2021 6:47 AM CDT [facility] PARAINFLUENZA 2 PCR (RESP) NOT DETECTED NOT DETECTED 09/16/2021 6:47 AM CDT [facility] PARAINFLUENZA 3 PCR (RESP) NOT DETECTED NOT DETECTED 09/16/2021 6:47 AM CDT [facility] PARAINFLUENZA 4 PCR (RESP) NOT DETECTED NOT DETECTED 09/16/2021 6:47 AM CDT [facility] RSV PCR (RESP) NOT DETECTED NOT DETECTED 09/16/2021 6:47 AM CDT [facility] B PARAPERTUSIS PCR (RESP) NOT DETECTED NOT DETECTED 09/16/2021 6:47 AM CDT [facility] BORDETELLA PERTUSSIS PCR (RESP) NOT DETECTED NOT DETECTED 09/16/2021 6:47 AM CDT [facility] CHLAMYDOPHILA PNEUMONIAE PCR (RESP) NOT DETECTED NOT DETECTED 09/16/2021 6:47 AM CDT [facility] MYCOPLASMA PNEUMONIAE PCR (RESP) NOT DETECTED NOT DETECTED 09/16/2021 6:47 AM CDT [facility] CORONAVIRUS SARS COV 2 PCR (RESP) NOT DETECTED NOT DETECTED 09/16/2021 6:47 AM CDT [facility] FIRST TEST UNKNOWN 09/16/2021 5:16 AM CDT [facility] EMPLOYED IN HEALTHCARE UNKNOWN 09/16/2021 5:16 AM CDT [facility] SYMPTOMATIC DEFINED BY CDC UNKNOWN 09/16/2021 5:16 AM CDT [facility] HOSPITALIZATION STATUS UNKNOWN 09/16/2021 5:16 AM CDT [facility] PATIENT IN ICU UNKNOWN 09/16/2021 5:35 AM CDT [facility] RESIDENT OF [facility]GREG[facility] CARE UNKNOWN 09/16/2021 5:16 AM CDT [facility] NASOPHARYNGEAL SWAB / Unknown 09/16/2021 5:10 AM CDT us Shilpa Chung MD MICROBIOLOGY - GENERAL ORDERABLE S Final Result [facility] [address] [place] [address], * (ABNORMAL) PRO-BRAIN NATRIURETIC PEPTIDE (09/16/2021 5:08 AM CDT) PRO-B TYPE NATRIURETIC PEPTIDE 650(H) <450 PG/ML 09/16/2021 5:49 AM CDT [facility] Comment: CUT POINTS ESTABLISHED BY INTERNATIONAL COLLABORATIVE ON NT PROBNP (ICON) STUDY (2006). AGE INDEPENDENT: <300 PG/ML HAS A 99% NEGATIVE PREDICTIVE VALUE FOR EXCLUDING ACUTE CHF <50 YEARS: >450 PG/ML IS CONSISTENT WITH ACUTE CHF 50-75 YEARS: >900 PG/ML IS CONSISTENT WITH ACUTE CHF >75 YEARS: >1800 PG/ML IS CONSISTENT WITH ACUTE CHF IN PATIENTS WITH RENAL INSUFFICIENCY (GFR <60), >1200 PG/ML YIELDS A DIAGNOSTIC SENSITIVITY AND SPECIFICITY OF 89% AND 72% FOR ACUTE CHF. 09/16/2021 5:08 AM CDT us Shilpa Chung MD LABORATORY Final Result [facility] [address] [place] [address], [place] [phone] * TROPONIN, QUANT (09/16/2021 5:08 AM CDT) TROPONIN I HIGH SENSITIVITY 7 0 - 53 ng/L 09/16/2021 5:49 AM CDT [facility] 09/16/2021 5:08 AM CDT Shilpa Chung MD LABORATORY Final Result [facility] [address] [place] [address], [place] [phone] * (ABNORMAL) COMPREHENSIVE METABOLIC PANEL (09/16/2021 5:08 AM CDT) SODIUM S/P/B 125(L) 136 - 145 MMOL/L 09/16/2021 5:49 AM CDT [facility] POTASSIUM S/P/B 3.8 3.5 - 5.1 MMOL/L 09/16/2021 5:49 AM CDT [facility] CHLORIDE S/P/B 94(L) 98 - 107 MMOL/L 09/16/2021 5:49 AM CDT [facility] CO2 25.0 21.0 - 32.0 MMOL/L 09/16/2021 5:49 AM CDT [facility] GLUCOSE 151(H) 74 - 106 MG/DL 09/16/2021 5:49 AM CDT [facility] BUN 17 7 - 18 MG/DL 09/16/2021 5:49 AM CDT [facility] CREATININE S/P/B 0.95 0.55 - 1.02 MG/DL 09/16/2021 5:49 AM CDT [facility] CALCIUM S/P/B 8.1(L) 8.5 - 10.1 MG/DL 09/16/2021 5:49 AM CDT [facility] BILIRUBIN TOTAL S/P/B 0.6 0.2 - 1.0 MG/DL 09/16/2021 5:49 AM CDT [facility] ALKALINE PHOSPHATASE S/P/B 121(H) 45 - 117 U/L 09/16/2021 5:49 AM CDT [facility] AST 25 15 - 37 U/L 09/16/2021 5:49 AM CDT [facility] ALT 31 13 - 56 U/L 09/16/2021 5:49 AM CDT [facility] TOTAL PROTEIN S/P/B 7.4 6.4 - 8.2 G/DL 09/16/2021 5:49 AM CDT [facility] ALBUMIN S/P/B 3.6 3.4 - 5.0 G/DL 09/16/2021 5:49 AM CDT [facility] ANION GAP 6.0 5.0 - 15.0 MMOL/L 09/16/2021 5:49 AM T [facility] OSMOLALITY (CALC) 264 MOSM/KG 022 5:49 AM T [facility] Comment:REFERENCE RANGE NOT ESTABLISHED EGFR NON-AFR. AMER. 57(L) >89 ML/MIN/1. 73 M2 09/16/2021 5:49 AM T [facility] EGFR AFR. AMER. 66(L) >89 ML/MIN/1. 73 M2 09/16/2021 5:49 AM T [facility] GFR NOTES GFR REFERENCE S: 09/16/2021 5:49 AM T [facility] Comment: THE ESTIMATED GFR IS CALCULATED USING THE 2009 CKD-EPI EQUATION. THE FOLLOWING CATEGORIES FOR GRADING RENAL FUNCTION ARE RECOMMENDED BY THE INTERNATIONAL SOCIETY OF NEPHROLOGY (KDIGO 2012 CLINICAL PRACTICE GUIDELINE). G1,NORMAL OR HIGH: >89 ml/min/1.73 m2 G2,MILDLY DECREASED: 60-89 ml/min/1.73 m2 G3A,MILDLY TO MODERATELY DECREASED: 45-59 ml/min/1.73 m2 G3B,MODERATELY TO SEVERELY DECREASED: 30-44 ml/min/1.73 m2 G4,SEVERELY DECREASED: 15-29 ml/min/1.73 m2 G5,KIDNEY FAILURE: <15 ml/min/1.73 m2 09/16/2021 5:08 AM CDT us Shilpa Chung MD LABORATORY Final Result Performing Organization Address City/[facility]/ZIP Co de Phone Number [facility] [address] [place] [address], [place] [phone] * PARTIAL THROMBOPLASTIN TIME,PTT (09/16/2021 5:08 AM CDT) PTT 36.2 21.8 - 36.8 SEC 09/16/2021 5:47 AM CDT [facility] 09/16/2021 5:08 AM CDT us Shilpa Chung MD LABORATORY Final Result Performing Organization Address [facility] Co de Phone Number [facility] [address] [place] [address], * PROTIME/INR, VENOUS (09/16/2021 5:08 AM CDT) PROTIME 14.3 11.8 - 14.7 SEC 09/16/2021 5:46 AM CDT [facility] INR 1.1 09/16/2021 5:46 AM CDT [facility] 09/16/2021 5:08 AM CDT us Shilpa Chung MD LABORATORY Final Result Performing Organization Address City/[facility]/ZIP Co de Phone Number [facility] [address] [place] [address], [place] [phone] * (ABNORMAL) CBC W/DIFF AUTOMATED (09/16/2021 5:08 AM CDT) WBC 12.4(H) 4.6 - 9.1 x10'3/uL 09/16/2021 5:24 AM CDT [facility] RBC 3.39(L) 3.90 - 5.00 x10'6/uL 09/16/2021 5:24 AM CDT [facility] HGB 5.8(LL) 11.8 - 14.7 G/DL 09/16/2021 5:24 AM CDT [facility] Comment: CRITICAL VALUE VERIFIED, CALLED TO, AND READ BACK BY: JOE MACKENZIE RN HCT 21.7(L) 36.3 - 45.2 % 09/16/2021 5:24 AM CDT [facility] MCV 64.0(L) 80.0 - 98.0 FL 09/16/2021 5:24 AM CDT [facility] MCH 17.1(L) 26.8 - 32.1 PG 09/16/2021 5:24 AM CDT [facility] MCHC 26.7(L) 30.7 - 34.2 G/DL 09/16/2021 5:24 AM CDT [facility] RDW 19.1(H) 12.0 - 14.8 % 09/16/2021 5:24 AM CDT [facility] PLT 609(H) 145 - 358 x10'3/uL 09/16/2021 5:24 AM CDT [facility] MPV 8.4(L) 8.8 - 12.3 FL 09/16/2021 5:24 AM CDT [facility] NRBC 0.2 % 09/16/2021 6:06 AM CDT [facility] BASOPHILS 1.1 % 09/16/2021 6:06 AM CDT [facility] EOSINOPHILS 0.9 % 09/16/2021 6:06 AM CDT [facility] MONOCYTES 8.7 % 09/16/2021 6:06 AM CDT [facility] LYMPHOCYTES 13.8 % 09/16/2021 6:06 AM CDT [facility] SEG NEUTROPHILS 74.9 % 6:06 AM CDT [facility] IMMATURE GRANS % 0.6 % 09/17/19 6:06 AM CDT [facility] ABS. LYMPHOCYTES 1.71 1.10 - 3.30 x10'3/uL 09/16/2021 6:06 AM CDT [facility] ABS. MONOCYTES 1.08(H) 0.30 - 0.80 x10'3/uL 09/16/2021 6:06 AM CDT [facility] ABS. EOSINOPHILS 0.11 0.03 - 0.45 x10'3/uL 09/16/2021 6:06 AM CDT [facility] ABS. BASOPHILS 0.14(H) 0.01 - 0.09 x10'3/uL 09/16/2021 6:06 AM CDT [facility] ABS. NUCLEATED RBC'S 0.02 0.00 - 0.12 x10'3/uL 09/16/2021 6:06 AM CDT [facility] ABS. NEUTROPHILS 9.29(H) 2.30 - 5.70 x10'3/uL 09/16/2021 6:06 AM CDT [facility] ABS. IMMATURE GRANULOCYTES 0.07 0.00 - 0.09 x10'3/uL 09/16/2021 6:06 AM CDT [facility] RBC MORPHOLOGY 2+ 09/16/2021 6:06 AM CDT [facility] Comment: ANISOCYTOSIS 2+ MICROCYTES 1+ POLYCHROMASIA 1+ HYPOCHROMASIA 09/16/2021 5:08 AM CDT Shilpa Chung MD LABORATORY Final Result [facility] [address] [place] [address], * ECG 12 lead (09/16/2021 5:05 AM CDT) 09/16/2021 5:05 AM CDT Narrative [facility] - 09/16/2021 7:22 AM CDT ?[facility] ? Test Date: ?2021-09-16 Pat Name: ? INDY COURTNEY ?Department: ?? 68 ? Room: ? [id number] Gender: ? F ?Biofuels Manager: ?? Lh : ?1940 ? Requested By: ?? Order Number: [id number] ? Reading MD: ?? Ronnie Patterson ? Measurements Intervals ?[place] ? Rate: ? 92 ? P: ?59 WI: ? 165 ?QRS: ?41 QRSD: ? 92 ? T: ?50 QT: ? 375 ? QTc: ?466 ? Interpretive Statements SINUS RHYTHM MINIMAL ST DEPRESSION [0.025+ mV ST DEPRESSION] No previous ECG available for comparison Procedure Note Ronnie Patterson MD - 09/16/2021 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: : 1940 Requested By: Order Number: [id number] Reading MD: Ronnie Patterson Measurements Intervals [place] Rate: 92 P: 59 WI: 165 QRS: 41 QRSD: 92 T: 50 QT: 375 QTc: 466 Interpretive Statements SINUS RHYTHM MINIMAL ST DEPRESSION [0.025+ mV ST DEPRESSION] No previous ECG available for comparison Shilpa Chung MD ECG ORDERABLES Final Result [facility] documented in this encounter Visit Diagnoses Diagnosis CHF (congestive heart failure) ([facility])- Primary Congestive heart failure, unspecified Pneumonia Pneumonia, organism unspecified Hypoxia Hypoxemia documented in this encounter Administered Medications Inactive Administered Medications - up to 3 most recent administrations Medication Order MAR Action Action Date Dose Rate Site acetaminophen (TYLENOL) tablet 650 mg 650 mg, Oral, Every 4 hours PRN, Mild pain (Scale 1 - 3), Starting on Thu09/16/21 at 0805, Until Thu09/19/21 at 1337, Maximum dose of acetaminophen is 4000 mg from all sources in 24 hours. Given 09/19/2021 9:11 AM CDT 650 mg amLODIPine (NORVASC) tablet 10 mg 10 mg, Oral, Daily, First dose on Thu09/16/21 at 1230, Until Discontinued Given 09/19/2021 8:49 AM CDT 10 mg Given 09/18/2021 8:50 AM CDT 10 mg Given 09/17/2021 8:29 AM CDT 10 mg atorvastatin (LIPITOR) tablet 10 mg 10 mg, Oral, Daily, First dose on Thu09/16/21 at 1230, Until Discontinued Given 09/19/2021 8:48 AM CDT 10 mg Given 09/18/2021 8:50 AM CDT 10 mg Given 09/17/2021 8:29 AM CDT 10 mg azithromycin (ZITHROMAX) 500 mg in sodium chloride 0.9 % 250 mL IVPB 500 mg, Intravenous, at 250 mL/hr, Every 24 hours, 5 doses, First dose on Thu09/16/21 at 0600, Last dose on Thu09/20/21 at 0600 [facility] 09/18/2021 5:08 AM CDT 500 mg 250 mL/h r [facility] 09/17/2021 5:15 AM CDT 500 mg 250 mL/hr [facility] 09/16/2021 6:12 AM CDT 500 mg 250 mL/hr azithromycin (ZITHROMAX) tablet 500 mg 500 mg, Oral, Daily, 2 doses, First dose on Thu09/19/21 at 0900, Last dose on Thu09/20/21 at 0900, IV to PO substitution per service approved by [employer] Given 09/19/2021 8:48 AM CDT 500 mg cefTRIAXone (ROCEPHIN) 1 g in sodium chloride 0.9 % 50 mL IVPB 1 g, Intravenous, at 100 mL/hr, Once, 1 dose, On Thu09/16/21 at 0600 [facility] 09/16/2021 6:12 AM CDT 1 g 100 mL/hr citalopram (CeleXA) tablet 20 mg 20 mg, Oral, Daily, First dose on Thu09/16/21 at 1230, Until Discontinued Given 09/19/2021 8:48 AM CDT 20 mg Given 09/18/2021 8:50 AM CDT 20 mg Given 09/17/2021 8:29 AM CDT 20 mg furosemide (LASIX) injection 40 mg 40 mg, Intravenous, Once, 1 dose, On Thu09/16/21 at 0715, Administer IV push 20-40mg/min. Given 09/16/2021 7:12 AM CDT 40 mg furosemide (LASIX) injection 40 mg 40 mg, Intravenous, 2 times daily, First dose (after last reorder) on Thu09/16/21 at 1415, Until Discontinued, Administer IV push 20-40mg/min. Given 09/18/2021 8:51 AM CDT 40 mg Given 09/17/2021 5:18 PM CDT 40 mg Given 09/17/2021 8:28 AM CDT 40 mg furosemide (LASIX) tablet 20 mg 20 mg, Oral, Daily, First dose on Thu09/19/21 at 0900, Until Discontinued Given 09/19/2021 8:48 AM CDT 20 mg HYDROcodone-acetaminophen (NORCO) 5-325 MG tablet 1 tablet 1 tablet, Oral, Every 4 hours PRN, Moderate pain (Scale 4 - 7), Starting on Thu09/16/21 at 1207, Until Thu09/19/21 at 1337, Maximum dose of acetaminophen is 4000 mg from all sources in 24 hours. Given 09/16/2021 5:46 PM CDT 1 tablet insulin lispro (HUMALOG) injection 0-12 Units 0-12 Units, Subcutaneous, 4 times daily before meals and nightly, First dose on Thu09/16/21 at 1100, Until Discontinued, Blood Glucose: (Less than 70, Notify Provider and Initiate Hypoglycemia Protocol) (150 - 199, administer 2 units) (200 - 249, administer 4 units) (250 - 299, administer 6 units) (300 - 349, administer 8 units) (350 - 400, administer 10 units) (Greater than 400 - Notify Provider) Given 09/17/2021 8:36 PM CDT 4 Units Left Lower Abdomen Given 09/17/2021 11:47 AM CDT 2 Units L eft Arm Given 09/16/2021 8:54 PM CDT 2 Units Le ft Arm insulin lispro (HUMALOG) injection 0-12 Units 0-12 Units, Subcutaneous, 4 times daily before meals and nightly, First dose on Thu09/19/21 at 1145, Until Discontinued, Blood Glucose: (Less than 70, Notify Provider and Initiate Hypoglycemia Protocol) (150 - 199, administer 2 units) (200 - 249, administer 4 units) (250 - 299, administer 6 units) (300 - 349, administer 8 units) (350 - 400, administer 10 units) (Greater than 400 - Notify Provider) iopamidol (ISOVUE-370) 76 % injection 100 mL 100 mL, Intravenous, IMG once as needed, Contrast, 1 dose, Starting on Thu09/16/21 at 0626, Until Thu09/16/21 at 0626 Given 09/16/2021 6:26 AM CDT 55 mLs iron sucrose (VENOFER) injection 200 mg 200 mg, Intravenous, Daily, 2 doses, First dose on Thu09/17/21 at 0900, Last dose on Thu09/18/21 at 0900, May administer doses 200 mg or less undiluted by slow IV injection over 2 to 5 minutes. Given 09/18/2021 8:51 AM CDT 200 mg Given 09/17/2021 8:29 AM CDT 200 mg iron sucrose (VENOFER) injection 200 mg 200 mg, Intravenous, Once, 1 dose, On Thu09/19/21 at 0900, May administer doses 200 mg or less undiluted by slow IV injection over 2 to 5 minutes. Given 09/19/2021 8:49 AM CDT 200 mg Ri ght Arm levothyroxine (SYNTHROID) tablet 137 mcg 137 mcg, Oral, Every morning, First dose on Thu09/17/21 at 0700, Until Discontinued, Avoid iron, calcium, and antacids within 4 hours of administration. Given 09/19/2021 6:00 AM CDT 137 mcg Given 09/18/2021 6:14 AM CDT 137 mcg Given 09/17/2021 6:14 AM CDT 137 mcg LORazepam (ATIVAN) tablet 0.5 mg 0.5 mg, Oral, Every 6 hours PRN, Anxiety, Starting on Thu09/16/21 at 1207, Until Obdulia 09/19/21 at 1337 Given 09/18/2021 7:39 PM CDT 0.5 mg pantoprazole EC (PROTONIX) tablet 40 mg 40 mg, Oral, 2 times daily before meals, First dose on Thu09/16/21 at 1600, Until Discontinued, Do not break, chew, or crush. Given 09/19/2021 6:00 AM CDT 40 mg Given 09/18/2021 3:26 PM CDT 40 mg Given 09/18/2021 6:14 AM CDT 40 mg perflutren lipid microsphere (DEFINITY) injection 2 mL 2 mL, Intravenous, IMG once as needed, Contrast, 1 dose, Starting on Thu09/17/21 at 1035, Until Thu09/17/21 at 1040, Administer over 30-60 seconds. Follow with 10 mL saline flush. Given 09/17/2021 10:40 AM CDT 2 mLs potassium chloride CR (KLOR-CON M) tablet 40 mEq 40 mEq, Oral, Once, 1 dose, On Thu09/17/21 at 0830, Do not chew, crush, or suck on tablet. May break in half. May dissolve whole tablet in 120 mL of water and drink immediately. Given 09/17/2021 8:29 AM CDT 40 mEq sodium chloride 0.9% infusion at 10 mL/hr, Intravenous, Continuous, Starting on Thu09/16/21 at 0615, Until Thu09/17/21 at 0614, Infuse at TKO rate New Bag 09/16/2021 2:39 PM CDT 250 mLs 10 mL/hr Right Arm sodium chloride 0.9% infusion at 10 mL/hr, Intravenous, Continuous, Starting on Thu09/16/21 at 0830, Until Thu09/17/21 at 0829, Infuse at TKO rate New Bag 09/16/2021 9:30 AM CDT 250 mLs 10 mL/hr documented in this encounter Active and Recently Administered Medications Times are shown in CDT. Scheduled Medication Order 09/17/2021 09/18/2021 09/19/2021 amLODIPine (NORVASC) tablet 10 mg 10 mg, Oral, Daily, First dose on Thu09/16/21 at 1230, Until Discontinued 0829 (Given - Provider: Smiley Blevins RN) 0850 (Given - Provider: Sarahi Maynard, Nurse Student) 0849 (Given - Provider: Amrita Wild, Nurse Student) atorvastatin (LIPITOR) tablet 10 mg 10 mg, Oral, Daily, First dose on Thu09/16/21 at 1230, Until Discontinued 08 (Given - Provider: Smiley Blevins RN) 0850 (Given - Provider: Sarahi Maynard, Nurse Student) 0848 (Given - Provider: Amrita Wild, Nurse Student) azithromycin (ZITHROMAX) 500 mg in sodium chloride 0.9 % 250 mL IVPB (CANCELED) 500 mg, Intravenous, at 250 mL/hr, Every 24 hours, 5 doses, First dose on Thu09/16/21 at 0600, Last dose on Thu09/20/21 at 0600 0515 (New Bag - Provider: Iona Mason RN)0615 (Infusion Stop Time - Provider: Iona Mason RN) 0508 (New Bag - Provider: Iona Mason, RN)0630 (Infusion Stop Time - Provider: Iona Mason, KHLOE) azithromycin (ZITHROMAX) tablet 500 mg 500 mg, Oral, Daily, 2 doses, First dose on Thu09/19/21 at 0900, Last dose on Thu09/20/21 at 0900, IV to PO substitution per service approved by [facility] P&T 0848 (Given - Provider: Amrita Wild, Student) citalopram (CeleXA) tablet 20 mg 20 mg, Oral, Daily, First dose on Thu09/16/21 at 1230, Until Discontinued 0829 (Given - Provider: Smiley Blevins RN) 0850 (Given - Provider: Sarahi Maynard, Nurse Student) 0848 (Given - Provider: Amrita Wild, Nurse Student) furosemide (LASIX) injection 40 mg (CANCELED) 40 mg, Intravenous, 2 times daily, First dose (after last reorder) on Thu09/16/21 at 1415, Until Discontinued, Administer IV push 20-40mg/min. 0828 (Given - Provider: Smiley Blevins RN)1718 (Given - Provider: Smiley Blevins RN) 0851 (Given - Provider: Sarahi Maynard, Nurse Student) furosemide (LASIX) tablet 20 mg 20 mg, Oral, Daily, First dose on Thu09/19/21 at 0900, Until Discontinued 0848 (Given - Provider: Amrita Wild, Nurse Student) insulin lispro (HUMALOG) injection 0-12 Units (CANCELED) 0-12 Units, Subcutaneous, 4 times daily before meals and nightly, First dose on Thu09/16/21 at 1100, Until Discontinued, Blood Glucose: (Less than 70, Notify Provider and Initiate Hypoglycemia Protocol) (150 - 199, administer 2 units) (200 - 249, administer 4 units) (250 - 299, administer 6 units) (300 - 349, administer 8 units) (350 - 400, administer 10 units) (Greater than 400 - Notify Provider) 0606 (Not Given - Provider: Iona Mason RN - Reason: Order parameters not met)1147 (Given - Provider: Smiley Blevins RN)1714 (Not Given - Provider: Smiley Blevins RN - Reason: Order parameters not met)203 (Given - Provider: Iona Mason RN) 0601 (Not Given - Provider: Iona Mason RN - Reason: Order parameters not met)1156 (Not Given - Provider: Sarahi Maynard, Nurse Student - Reason: Order parameters not met)1648 (Not Given - Provider: Morena Anderson Nurse Student - Reason: Order parameters not met)202 (Not Given - Provider: Adry Agee RN - Reason: Order parameters not met) 0558 (Not Given - Provider: Adry Agee RN - Reason: Order parameters not met)1122 (Not Given - Provider: Katt Jerome RN - Reason: Order parameters not met) insulin lispro (HUMALOG) injection 0-12 Units 0-12 Units, Subcutaneous, 4 times daily before meals and nightly, First dose on Thu09/19/21 at 1145, Until Discontinued, Blood Glucose: (Less than 70, Notify Provider and Initiate Hypoglycemia Protocol) (150 - 199, administer 2 units) (200 - 249, administer 4 units) (250 - 299, administer 6 units) (300 - 349, administer 8 units) (350 - 400, administer 10 units) (Greater than 400 - Notify Provider) 1136 (Not Given - Provider: Katt Jerome RN - Reason: Order parameters not met) iron sucrose (VENOFER) injection 200 mg (COMPLETED) 200 mg, Intravenous, Daily, 2 doses, First dose on Thu09/17/21 at 0900, Last dose on Thu09/18/21 at 0900, May administer doses 200 mg or less undiluted by slow IV injection over 2 to 5 minutes. 0829 (Given - Provider: Smiley Blevins RN) 0851 (Given - Provider: Sarahi Maynard, Nurse Student) iron sucrose (VENOFER) injection 200 mg (COMPLETED) 200 mg, Intravenous, Once, 1 dose, On Thu09/19/21 at 0900, May administer doses 200 mg or less undiluted by slow IV injection over 2 to 5 minutes. 0849 (Given - Provider: Amrita Wild, Nurse Student) levothyroxine (SYNTHROID) tablet 137 mcg 137 mcg, Oral, Every morning, First dose on Thu09/17/21 at 0700, Until Discontinued, Avoid iron, calcium, and antacids within 4 hours of administration. 0614 (Given - Provider: Iona Mason RN) 0614 (Given - Provider: Iona Mason RN) 0600 (Given - Provider: Adry Agee, KHLOE) pantoprazole EC (PROTONIX) tablet 40 mg 40 mg, Oral, 2 times daily before meals, First dose on Thu09/16/21 at 1600, Until Discontinued, Do not break, chew, or crush. 0614 (Given - Provider: Iona Mason RN)1718 (Given - Provider: Smiley Blevins RN) 0614 (Given - Provider: Iona Mason RN)1526 (Given - Provider: Morena Anderson, Nurse Student) 0600 (Given - Provider: Adry Agee, KHLOE) potassium chloride CR (KLOR-CON M) tablet 40 mEq (COMPLETED) 40 mEq, Oral, Once, 1 dose, On Thu09/17/21 at 0830, Do not chew, crush, or suck on tablet. May break in half. May dissolve whole tablet in 120 mL of water and drink immediately. 0829 (Given - Provider: Smiley Blevins, KHLOE) PRN Medication Order 09/17/2021 09/18/2021 09/19/2021 acetaminophen (TYLENOL) tablet 650 mg 650 mg, Oral, Every 4 hours PRN, Mild pain (Scale 1 - 3), Starting on Thu09/16/21 at 0805, Until Obdulia 09/19/21 at 1337, Maximum dose of acetaminophen is 4000 mg from all sources in 24 hours. 0911 (Given - Provider: Amrita Wild, Nurse Student) HYDROcodone-acetaminophe n (NORCO) 5-325 MG tablet 1 tablet 1 tablet, Oral, Every 4 hours PRN, Moderate pain (Scale 4 - 7), Starting on Thu09/16/21 at 1207, Until Obdulia 09/19/21 at 1337, Maximum dose of acetaminophen is 4000 mg from all sources in 24 hours. LORazepam (ATIVAN) tablet 0.5 mg 0.5 mg, Oral, Every 6 hours PRN, Anxiety, Starting on Thu09/16/21 at 1207, Until Obdulia 09/19/21 at 1337 1939 (Given - Provider: Adry Agee, KHLOE) ondansetron (ZOFRAN) injection 4 mg 4 mg, Intravenous, Every 8 hours PRN, Nausea, Vomiting, Starting on Thu09/16/21 at 0805, Until Obdulia 09/19/21 at 1337, IV push over 2-5 minutes. perflutren lipid microsphere (DEFINITY) injection 2 mL (COMPLETED) 2 mL, Intravenous, IMG once as needed, Contrast, 1 dose, Starting on Thu09/17/21 at 1035, Until Thu09/17/21 at 1040, Administer over 30-60 seconds. Follow with 10 mL saline flush. 1040 (Given - Provider: Jazmyne Paulino, RTR) documented in this encounter Additional Health Concerns Infection Onset Date Last Indicated Resolved Time COVID-19 Rule Out 09/16/2021 09/16/2021 09/16/2021 6:47 AM CDT COVID-19 Rule Out 09/18/2021 09/18/2021 09/18/2021 5:43 PM CDT documented as of this encounter Care Teams Tele Tech Relationship Specialty Start Date End Date Cedric Hercules MD [address] [place] [address] PCP - General FAMILY PRACTICE 09/16/21 documented as of this encounter
--- OUTSIDE RECORDS SUMMARY | 2024-05-24 20:19 | XMS_ITS | Encounter Summary ---
Author Organization [facility] Address [address] [place] [address] [place] [address] Care Team Providers Care Insurance Claims Examiner Name Role Phone Cedric Nguyen MD Primary Care Provider Encounter Details Date Type Department Care Team (Late st Contact Info) Description 09/24/2023 Orders Only [facility] [address] [place] [address] Ricardo Evans, [address] [place] [address] Social History Tobacco Use Types Packs/Day Years [...] on file documented as of this encounter Functional Status * RETIRED Are you deaf or do [...] Assessment Author Status Yes 09/16/2021 8:09 AM CDT María Dee RN Active * Do you have difficulty dressing or bathing? Answer Date of Assessment Author Status No 09/16/2021 8:09 AM CDT María Dee RN Active * Because of a physical, mental, or emotional condition, do you have difficulty doing errands alone such as visiting a doctor's office or shopping? Answer Date of Assessment Author Status Yes 09/16/2021 8:09 AM CDT María Dee RN Active documented as of this encounter Mental Status * Because of a physical, mental, or emotional condition, do you have serious difficulty concentrating, remembering, or making decisions? Answer Entry Date Author Status Yes 09/16/2021 8:09 AM CDT María Dee RN Active documented in this encounter Plan of Treatment Not on file documented as of this encounter Results * (ABNORMAL) THYROID STIM HORMONE, TSH (09/24/2023 6:46 AM CDT) TSH 9.138(H) 0.358 - 3.740 uIU/ML 09/24/2023 9:43 AM CDT [facility] Comment: ASSAY PERFORMED BY CHEMILUMINESCENT IMMUNOASSAY METHODOLOGY USING SIEMENS DIMENSION REAGENT. PATIENT RESULTS DETERMINED BY ASSAYS FROM DIFFERENT MANUFACTURERS AND/OR BY DIFFERENT METHODS MAY NOT BE COMPARABLE. 09/24/2023 6:46 AM CDT us Ricardo Evans DO LABORATORY Final Result [facility] [place] [address], * (ABNORMAL) HEMOGLOBIN, GLYCOSYLATED (09/24/2023 6:46 AM CDT) HGB A1C 6.5(H) <5.7 % 09/24/2023 12:21 PM CDT [facility] ESTIMATED AVG GLUCOSE 140(H) 74 - 114 MG/DL 09/24/2023 12:21 PM CDT [facility] 09/24/2023 6:46 AM CDT us Ricardo Evans DO LABORATORY Final Result [facility] [address] [place] [address], [id number] documented in this encounter Visit Diagnoses Diagnosis Chronic combined systolic and diastolic heart failure ([facility] HHS/HCC)- Primary Chronic combined systolic and diastolic heart failure Diabetes mellitus ([facility] HHS/HCC) Type II or unspecified type diabetes mellitus without mention of complication, not stated as uncontrolled Acute gastrointestinal hemorrhage Hemorrhage of gastrointestinal tract, unspecified Iron deficiency anemia secondary to blood loss (chronic) documented in this encounter Care Teams Insurance Claims Examiner Relationship Specialty Start Date End Date Cedric Nguyen MD [address] [place] [address] PCP - General FAMILY PRACTICE 09/16/21 documented as of this encounter
--- OUTSIDE RECORDS SUMMARY | 2024-05-24 20:19 | XMS_ITS | Encounter Summary ---
Author Organization [facility] Address [address] [place] [place] [address] [place] [address] Care Team Providers Care Acreage Reporter Name Role Phone Cedric Nguyen MD Primary Care Provider [phone] Encounter Details Date Type Department Care Team (Latest Contact Info) Description 09/24/2023 9:19 AM CDT - 09/24/2023 11:59 PM CDT Hospital Encounter [facility] [address] [place] [address] Ricardo Evans DO [address] [place] [address] Discharge Disposition: Home or Self Care (Routine Discharge) Social History Tobacco Use Types Packs/Day Years [...] Brito RN Active documented in this encounter Medications at Time [...] as needed. documented as of this encounter Plan of Treatment Not on file documented as of this encounter Procedures Procedure Name Priority Date/Time Associated Diagnosis Comments HEMOGLOBIN, GLYCOSYLATED Routine 09/24/2023 6:46 AM CDT Chronic combined systolic and diastolic heart failure ([facility] HHS/HCC) Diabetes mellitus ([facility]) Acute gastrointestinal hemorrhage Iron deficiency anemia secondary to blood loss (chronic) THYROID STIM HORMONE TSH Routine 09/24/2023 6:46 AM CDT Chronic combined systolic and diastolic heart failure (CMS/HCC HHS/HCC) Diabetes mellitus (CMS/HCC HHS/HCC) Acute gastrointestinal hemorrhage Iron deficiency anemia secondary to blood loss (chronic) documented in this encounter Results * (ABNORMAL) HEMOGLOBIN, GLYCOSYLATED (09/24/2023 6:46 AM CDT) HGB A1C 6.5(H) <5.7 % 09/24/2023 12:[address] [facility] ESTIMATED AVG GLUCOSE 140(H) 74 - 114 MG/DL 09/24/2023 12:[address] [facility] 09/24/2023 6:46 AM CDT [facility] Final Result Performing Organization Address City/[facility]/ZIP Co de Phone Number [facility] [address] [place] [address], [place] [phone] * (ABNORMAL) THYROID STIM HORMONE, TSH (09/24/2023 6:46 AM CDT) TSH 9.138(H) 0.358 - 3.740 uIU/ML 09/24/2023 9:43 AM CDT [facility] Comment: ASSAY PERFORMED BY CHEMILUMINESCENT IMMUNOASSAY METHODOLOGY USING SIEMENS DIMENSION REAGENT. PATIENT RESULTS DETERMINED BY ASSAYS FROM DIFFERENT MANUFACTURERS AND/OR BY DIFFERENT METHODS MAY NOT BE COMPARABLE. 09/24/2023 6:46 AM CDT [facility] Final Result [facility] [address] [place] [address], [place] [phone] documented in this encounter Visit Diagnoses Diagnosis Chronic combined systolic and diastolic heart failure (CMS/HCC HHS/HCC) Chronic combined systolic and diastolic heart failure Diabetes mellitus ([facility]/HCC HHS/HCC) Type II or unspecified type diabetes mellitus without mention of complication, not stated as uncontrolled Acute gastrointestinal hemorrhage Hemorrhage of gastrointestinal tract, unspecified Iron deficiency anemia secondary to blood loss (chronic) documented in this encounter Care Teams Acreage Reporter Relationship Specialty Start Date End Date Cedric Nguyen MD [address] [place] [address] PCP - General FAMILY PRACTICE 09/16/21 documented as of this encounter
--- OUTSIDE RECORDS SUMMARY | 2024-05-24 20:19 | XMS_ITS | Clinical Summary ---
Author Organization [facility] Address [address] [place] [address] [place] [address] Care Team Providers Care Medical Safety Director Name Role Phone Cedric Nguyen MD Primary Care Provider [phone] Allergies No known active allergies Medications valACYclovir 1 g tablet Take 1,000 mg by mouth 2 (two) times daily as needed. Active omeprazole 20 MG capsule Take 20 mg by mouth daily. Active LORazepam 0.5 MG tablet Take 0.5 mg by mouth every 6 (six) hours as needed for Anxiety. Active amLODIPine 10 MG tablet Take 10 mg by mouth daily. Active atorvastatin 10 MG tablet Take 10 mg by mouth daily. Active levothyroxine 137 MCG tablet Take 137 mcg by mouth every morning. Active citalopram 20 MG tablet Take 20 mg by mouth daily. Active iron polysaccharides plus vitamins 50-100 MG Cap Take 1 capsule by mouth daily with breakfast. Active pioglitazone 30 MG tablet Take 30 mg by mouth daily. Active HYDROcodone-acetamin ophen 5-325 MG tablet Take 1 tablet by mouth every 4 (four) hours as needed for Pain. Active ferrous sulfate, 65 mg elemental, 325 (65 FE) MG tablet Take 1 tablet (325 mg total) by mouth 2 (two) times a day. 60 tablet 2 Active Family History Medical History Relation Comments Cancer Brother 1 Heart Disease Brother 2 Heart Disease Brother 3 Hyperlipidemia Daughter Hypertension Daughter Cancer Mother Cancer Sister 2 Heart Disease Son 1 Relation Status Comments Brother 1 Brother 2 Brother 3 Daughter Alive Father Mother Sister 1 Alive Sister 2 Son 1 Son 2 Alive Social History Tobacco Use Types Packs/Day Years [...] Mass Index 31.22 09/16/2021 7:47 AM CDT Plan of Treatment Health Maintenance Due Date Last Done Comments Kidney Health Evaluation 1942 Lipid Panel 1942 Diabetes: Retinopathy Eye Exam 1960 DTaP, Tdap and Td Vaccines ( 1 - Tdap) 1961 Zoster Vaccines (1 of 2) 1992 RSV Immunization or 60+ Years (1 - 1-dose 60+ series) 2002 Annual Medicare Wellness Visit 2007 Dexa Scan (General) 2007 Pneumococcal Vaccine: 65+ Years (2 of 2 - PCV) 05/16/2014 05/16/2013 COVID-19 Vaccine (2 - 2023-2 5 season) 2024 09/14/2020 Influenza Adult (#1) 2024 04/13/2014, 05/16/2013 Hemoglobin A1C 03/25/2024 09/24/2023 Meningococcal Vaccine Aged Out No cornelius helder eligible based on patient's age to complete this topic RSV Immunizations Under 20 Months Aged Out No longer eligible b ased on patient's age to complete this topic Procedures Procedure Name Priority Date/Time Associated Diagnosis Comments HEMOGLOBIN, GLYCOSYLATED Routine 09/24/2023 6:46 AM CDT Chronic combined systolic and diastolic heart failure ([facility] HHS/HCC) Diabetes mellitus ([facility]) Acute gastrointestinal hemorrhage Iron deficiency anemia secondary to blood loss (chronic) from Last 3 Months or Most Recently Relevant to Health Maintenance Results * (ABNORMAL) HEMOGLOBIN, GLYCOSYLATED (09/24/2023 6:46 AM CDT) HGB A1C 6.5(H) <5.7 % 09/24/2023 12:21 PM CDT [facility] ESTIMATED AVG GLUCOSE 140(H) 74 - 114 MG/DL 09/24/2023 12:21 PM CDT [facility] 09/24/2023 6:46 AM CDT Ricardo Evans DO LABORATORY Final Result Performing Organization Address City/State/[facility] Co de Phone Number [facility] [address] [place] [address], [phone] from Last 3 Months or Most Recently Relevant to Health Maintenance Insurance [place] [address] [facility] [place] [address] Care Teams Medical Safety Director Relationship Specialty Start Date End Date Cedric Nguyen MD [address] [place] [address] PCP - General FAMILY PRACTICE 09/16/21
--- OUTSIDE RECORDS SUMMARY | 2024-05-24 20:19 | XMS_ITS | Encounter Summary ---
Author Organization [facility] Address [address] [place] [address] [place] [address] Care Team Providers Care Brand Coordinator Name Role Phone Cedric Nguyen MD Primary Care Provider [phone] Encounter Details Date Type Department Care Team (Late st Contact Info) Description 03/19/2022 8:05 AM CDT - 03/19/2022 11:59 PM CDT Hospital Encounter [facility] [address] [address] Cedric Nguyen MD [address] [place] [address] Discharge Disposition: Home or Self Care (Routine [...] Procedure Name Priority Date/Time Associated Diagnosis Comments CBC W/DIFF AUTOMATED Routine 03/19/2022 6:15 AM CDT Anemia, unspecified documented in this encounter Results * (ABNORMAL) CBC W/DIFF AUTOMATED (03/19/2022 6:15 AM CDT) WBC 6.9 4.0 - 10.8 x10'3/uL 03/19/2022 8:12 AM CDT [facility] RBC 3.86(L) 4.10 - 5.40 x10'6/uL 03/19/2022 8:12 AM CDT [facility] HGB 12.1 12.0 - 16.0 G/DL 03/19/2022 8:12 AM CDT [facility] HCT 36.5 36.0 - 47.0 % 03/19/2022 8:12 AM CDT [facility] MCV 94.6 78.0 - 100.0 FL 03/19/2022 8:12 AM CDT [facility] MCH 31.3(H) 27.0 - 31.0 PG 03/19/2022 8:12 AM CDT [facility] MCHC 33.2 33.0 - 36.0 G/DL 03/19/2022 8:12 AM CDT [facility] RDW 13.8 11.5 - 14.5 % 03/19/2022 8:12 AM CDT [facility] PLT 244 150 - 350 x10'3/uL 03/19/2022 8:12 AM CDT [facility] MPV 9.6 7.4 - 10.4 FL 03/19/2022 8:12 AM CDT [facility] DIFFERENTIAL COMMENT NORMAL REFERENCE RANGE NOT ESTABLISHED FOR THE PROPORTIONAL LEUKOCYTE DIFFERENTIAL. 03/19/2022 8:12 AM CDT [facility] SEG NEUTROPHILS 60.0 % 8:12 AM CDT [facility] LYMPHOCYTES 22.6 % 03/19/2022 8:12 AM CDT [facility] MONOCYTES 12.7 % 03/19/2022 8:12 AM CDT [facility] EOSINOPHILS 3.2 % 03/19/2022 8:12 AM CDT [facility] BASOPHILS 1.2 % 03/19/2022 8:12 AM CDT [facility] IMMATURE GRANS % 0.3 % 03/19/20 8:12 AM CDT [facility] NRBC 0.0 % 03/19/2022 8:12 AM CDT [facility] ABS. NEUTROPHILS 4.12 1.60 - 8.30 x10'3/uL 03/19/2022 8:12 AM CDT [facility] ABS. LYMPHOCYTES 1.55 0.80 - 4.70 x10'3/uL 03/19/2022 8:12 AM CDT [facility] ABS. MONOCYTES 0.87 0.00 - 1.50 x10'3/uL 03/19/2022 8:12 AM CDT [facility] ABS. EOSINOPHILS 0.22 0.00 - 0.40 x10'3/uL 03/19/2022 8:12 AM CDT [facility] ABS. BASOPHILS 0.08 0.00 - 0.20 x10'3/uL 03/19/2022 8:12 AM CDT [facility] ABS. IMMATURE GRANULOCYTES 0.02 0.00 - 0.03 x10'3/uL 03/19/2022 8:12 AM CDT [facility] ABS. NUCLEATED RBC'S 0.00 0.00 x10'3/uL 03/19/2022 8:12 AM CDT [facility] 03/19/2022 6:15 AM CDT us Cedric Nguyen MD LABORATORY Final Result [facility] [address] [place] [address], documented in this encounter Visit Diagnoses Diagnosis Anemia, unspecified documented in this encounter Care Teams Brand Coordinator Relationship Specialty Start Date End Date Cedric Nguyen MD [address] [place] [address] PCP - General FAMILY PRACTICE 09/16/21 documented as of this encounter
--- OUTSIDE RECORDS SUMMARY | 2024-05-24 20:19 | XMS_ITS | Encounter Summary ---
Author Organization [facility] Address [address] [place] [address] [place] [address] Care Team Providers Care Fisher Spear Name Role Phone Cedric Nguyen MD Primary Care Provider [phone] Encounter Details Date Type Department Care Team (Late st Contact Info) Description 03/19/2022 Orders Only [facility] [address] [facility] [place] [address] Cedric Nguyen MD [address] [place] [address] Social History Tobacco Use Types Packs/Day Years [...] Assessment Author Status Yes 09/16/2021 8:09 AM PAMELAT María Dee RN Active documented as of this encounter Mental Status * Because of a physical, mental, or emotional condition, do you have serious difficulty concentrating, remembering, or making decisions? Answer Entry Date Author Status Yes 09/16/2021 8:09 AM CDT María Dee RN Active documented in this encounter Plan of Treatment Not on file documented as of this encounter Results * (ABNORMAL) CBC W/DIFF AUTOMATED (03/19/2022 6:15 AM CDT) WBC 6.9 4.0 - 10.8 x10'3/uL 03/19/2022 8:12 AM CDT [facility] RBC 3.86(L) 4.10 - 5.40 x10'6/uL 03/19/2022 8:12 AM CDT [facility] HGB 12.1 12.0 - 16.0 G/DL 03/19/2022 8:12 AM CDT [facility] HCT 36.5 36.0 - 47.0 % 03/19/2022 8:12 AM CDT [facility] MCV 94.6 78.0 - 100.0 FL 03/19/2022 8:12 AM CDT [facility] MCH 31.3(H) 27.0 - 31.0 PG 03/19/2022 8:12 AM CDT [facility] MCHC 33.2 33.0 - 36.0 G/DL 03/19/2022 8:12 AM CDT [facility] RDW 13.8 11.5 - 14.5 % 03/19/2022 8:12 AM CDT [facility] PLT 244 150 - 350 x10'3/uL 03/19/2022 8:12 AM CDT [facility] MPV 9.6 7.4 - 10.4 FL 03/19/2022 8:12 AM CDT [facility] DIFFERENTIAL COMMENT NORMAL REFERENCE RANGE NOT ESTABLISHED FOR THE PROPORTIONAL LEUKOCYTE DIFFERENTIAL. 03/19/2022 8:12 AM CDT [facility] SEG NEUTROPHILS 60.0 % 8:12 AM CDT [facility] LYMPHOCYTES 22.6 % 03/19/2022 8:12 AM CDT [facility] MONOCYTES 12.7 % 03/19/2022 8:12 AM CDT [facility] EOSINOPHILS 3.2 % 03/19/2022 8:12 AM CDT [facility] BASOPHILS 1.2 % 03/19/2022 8:12 AM CDT [facility] IMMATURE GRANS % 0.3 % 03/19/20 8:12 AM CDT [facility] NRBC 0.0 % 03/19/2022 8:12 AM CDT [facility] ABS. NEUTROPHILS 4.12 1.60 - 8.30 x10'3/uL 03/19/2022 8:12 AM CDT [facility] ABS. LYMPHOCYTES 1.55 0.80 - 4.70 x10'3/uL 03/19/2022 8:12 AM CDT [facility] ABS. MONOCYTES 0.87 0.00 - 1.50 x10'3/uL 03/19/2022 8:12 AM CDT [facility] ABS. EOSINOPHILS 0.22 0.00 - 0.40 x10'3/uL 03/19/2022 8:12 AM CDT [facility] ABS. BASOPHILS 0.08 0.00 - 0.20 x10'3/uL 03/19/2022 8:12 AM CDT [facility] ABS. IMMATURE GRANULOCYTES 0.02 0.00 - 0.03 x10'3/uL 03/19/2022 8:12 AM CDT [facility] ABS. NUCLEATED RBC'S 0.00 0.00 x10'3/uL 03/19/2022 8:12 AM CDT [facility] 03/19/2022 6:15 AM CDT Cedric Nguyen MD LABORATORY Final Result [facility] [address] [place] [address], documented in this encounter Visit Diagnoses Diagnosis Anemia, unspecified- Primary documented in this encounter Care Teams Fisher Spear Relationship Specialty Start Date End Date Cedric Nguyen MD [address] [place], [place] [id number] PCP - General FAMILY PRACTICE 09/16/21 documented as of this encounter
--- OUTSIDE RECORDS SUMMARY | 2024-05-24 20:19 | XMS_ITS | Encounter Summary ---
Author Organization [facility] Address [address] [facility] [place] [address] [place] [address] Care Team Providers Care Plate Preparer Name Role Phone Cedric Nguyen MD Primary Care Provider [phone] Encounter Details Date Type Department Care Team (Late st Contact Info) Description 10/02/[address] [facility] [address] [place] [address] Cedric Nguyen MD [address] [place], [place] [id number] Social History Tobacco Use Types Packs/Day Years [...] Brito RN Active documented in this encounter Plan of Treatment Not on file documented as of this encounter Visit Diagnoses Diagnosis Diabetes mellitus ([facility])- Primary Type II or unspecified type diabetes mellitus without mention of complication, not stated as uncontrolled Anemia, unspecified Chronic combined systolic and diastolic heart failure ([facility]) Chronic combined systolic and diastolic heart failure documented in this encounter Care Teams Plate Preparer Relationship Specialty Start Date End Date Cedric Nguyen MD [address] [place] [address] PCP - General FAMILY PRACTICE 09/16/21 documented as of this encounter
--- OUTSIDE RECORDS SUMMARY | 2024-05-24 20:19 | XMS_ITS | Encounter Summary ---
Author Organization [facility] Address [address] [place] [address] [place] [address] Care Team Providers Care Party Host/Hostess Name Role Phone Cedric Nguyen MD Primary Care Provider [phone] Encounter Details Date Type Department Care Team (Late st Contact Info) Description 10/02/2023 5:21 AM CDT - 10/02/2023 11:59 PM CDT Hospital Encounter [facility] [address] [place] [address] Cedric Nguyen MD [address] [place] [address] Discharge Disposition: Home or Self Care (Routine [...] this encounter Visit Diagnoses Diagnosis Diabetes mellitus ([facility]) Type II or unspecified type diabetes mellitus without mention of complication, not stated as uncontrolled Anemia, unspecified Chronic combined systolic and diastolic heart failure ([facility]) Chronic combined systolic and diastolic heart failure documented in this encounter Care Teams Party Host/Hostess Relationship Specialty Start Date End Date Cedric Nguyen MD [address] [place], [place] [id number] PCP - General FAMILY PRACTICE 09/16/21 documented as of this encounter
--- OUTSIDE RECORDS SUMMARY | 2024-05-24 20:19 | XMS_ITS | Encounter Summary ---
Author Organization [facility] Address [address] [facility]. [place], [place] [id number] [place] [id number] Care Team Providers Care Jewelry Manager Name Role Phone eCdric Nguyen MD Primary Care Provider [phone] Encounter Details Date Type Department Care Team (Latest Contact Info) Description 09/16/2021 Travel Social History Tobacco Use Types Packs/Day Years [...] AM CDT documented as of this encounter Functional Status * Question Answer Date of Assessment Author Status Do you have serious difficulty walking or climbing stairs? Yes 09/16/2021 8:09 AM CDT María Dee RN A ctive * Question Answer Date of Assessment Author Status Do you have difficulty dressing or bathing? No 09/16/2021 8:09 AM PAMELAT María Dee RN Active Because of a physical, mental, or emotional condition, do you have difficulty doing errands alone such as visiting a doctor's office or shopping? Yes 09/16/2021 8:09 AM PAMELAT María Dee RN Ac tive * RETIRED [...] 8:09 AM PAMELAT María Dee RN Active * Do you [...] Diagnoses Not on filedocumented in this encounter Additional Health Concerns Infection Onset Date Last Indicated Resolved Time COVID-19 Rule Out 09/16/2021 09/16/2021 09/16/2021 6:47 AM CDT documented as of this encounter Care Teams Jewelry Manager Relationship Specialty Start Date End Date Cedric Nguyen MD [address] [place] [address] PCP - General FAMILY PRACTICE 09/16/21 documented as of this encounter
--- OUTSIDE RECORDS SUMMARY | 2024-05-24 20:20 | XMS_ITS | Encounter Summary ---
Author Organization [facility] Address [address] [place] [address] Care Team Providers Care Capsule Machine Operator Name Role Phone Cedric Nguyen MD Primary Care Provide r Encounter Details Date Type Department Care Team (Late st Contact Info) Description 08/01/2019 3:05 PM DRY GOODS INSPECTOR Lab [facility] ([facility]) [address] [place] [phone] Fabiano Jackson MD PhD [address] [place] [address] Memory changes Discharge Disposition: Discharge to home or self care Social History Tobacco Use Types Packs/Day Years Used Date Smoking Tobacco: Never Comments Unknown Sex and Gender Information Value Date Recorded Sex Assigned at Not on file Legal Sex Female 8:04 AM CDT Gender Identity Not on file Sexual Orientation Not on file documented as of this encounter Discharge Disposition Disposition Code Departure Means Destination Discharge to home or self care documented in this encounter Plan of Treatment Not on file documented as of this encounter Procedures Procedure Name Priority Date/Time Associated Diagnosis Comments TSH Routine 08/01/2019 2:42 PM DRY GOODS INSPECTOR Memory changes VITAMIN B12 Routine 08/01/2019 2:42 PM DRY GOODS INSPECTOR Memory changes COMPREHENSIVE METABOLIC PANEL Routine 08/01/2019 2:42 PM DRY GOODS INSPECTOR Memory changes documented in this encounter Results * Vitamin B12 (08/01/2019 2:42 PM DRY GOODS INSPECTOR) Pathologist [facility] Vitamin B12 603 230 - 1,250 pg/mL [facility] Blood specimen (specimen) 08/01/2019 2:42 PM DRY GOODS INSPECTOR 08/01/2019 2:53 PM DRY GOODS INSPECTOR Fabiano Jackson MD PhD LAB BLOOD ORDERABLES F inal Result Performing Organization Address [facility] de Phone Number [facility] Department [place] [address] * (ABNORMAL) TSH (08/01/2019 2:42 PM DRY GOODS INSPECTOR) [facility] Thyroid Stimulating Hormone 8.33(H) 0.30 - 4.20 mcIUnit/mL [facility] Blood specimen (specimen) 08/01/2019 2:42 PM DRY GOODS INSPECTOR 08/01/2019 2:53 PM DRY GOODS INSPECTOR Fabiano Jackson MD PhD LAB BLOOD ORDERABLES F inal Result Performing Organization Address [facility] de Phone Number [facility] Department [place] [address] * (ABNORMAL) Comprehensive metabolic panel (08/01/2019 2:42 PM DRY GOODS INSPECTOR) [facility] Sodium 136 135 - 145 mmol/L [facility] Potassium, pl 3.4 3.3 - 4.9 mmol/L [facility] Chloride 100 97 - 110 mmol/L [facility] CO2 27 22 - 32 mmol/L [facility] Anion gap 9 2 - 15 mmol/L [facility] BUN 16 8 - 25 mg/dL [facility] Creatinine 1.28(H) 0.60 - 1.10 mg/dL [facility] Glucose 186 70 - 199 mg/dL [facility] Comment: Interpretive Data Fasting glucose >/= 126 mg/dl is diagnostic for diabetes. ?? Fasting is defined as no caloric intake for at least 8 hours. Fasting glucose between 100 mg/dl to 125 mg/dl is diagnostic of prediabetes. In a patient with classic symptoms of hyperglycemia or hyperglycemic crisis, a random glucose >/= 200 mg/dl is diagnostic for diabetes. In the absence of unequivocal hyperglycemia, results should be confirmed by repeat testing. The classification and Diagnosis of Diabetes Diabetes Care 2017;40 (Suppl. 1):S11. Current interpretive data was last revised 2017. Calcium 8.6 8.5 - 10.3 mg/dL [facility] Bilirubin, total 0.2 0.1 - 1.2 mg/dL [facility] Protein, pl 7.3 6.5 - 8.5 g/dL [facility] Albumin 4.4 3.5 - 5.0 g/dL [facility] Alk phos 92 40 - 130 Units/L [facility] ALT 42 7 - 45 Units/L [facility] AST 32 10 - 45 Units/L [facility] Blood specimen (specimen) 08/01/2019 2:42 PM DRY GOODS INSPECTOR 08/01/2019 2:53 PM DRY GOODS INSPECTOR us Fabiano Jackson MD PhD LAB BLOOD ORDERABLES F inal Result [facility] Department [place] [address] documented in this encounter Visit Diagnoses Diagnosis Memory changes documented in this encounter Care Teams Capsule Machine Operator Relationship Specialty Start Date End Date Cedric Nguyen MD [address] [place] [address] PCP - General 09/17/16 documented as of this encounter
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
--- OUTSIDE RECORDS SUMMARY | 2024-05-24 20:20 | XMS_ITS | Encounter Summary ---
Author Organization [facility] Address [address] [place] [address] Phone Care Team Providers Care Stereo Compiler Name Role Phone Cedric Nguyen MD Primary Care Provide r Reason for Visit * Reason Comments Alzheimer's Disease Encounter Details Date Type Department Care Team (Late st Contact Info) Description 08/27/2022 1:00 PM CDT Office Visit [facility] [address] [place] [address] Elana Oliver NP [address] [place] [address] 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) (Primary Dx) Social History Tobacco Use Types Packs/Day Years Used Date Smoking Tobacco: Never Comments Unknown Sex and Gender Information Value Date Recorded Sex Assigned at Not on file Legal Sex Female 8:04 AM CDT Gender Identity Not on file Sexual Orientation Not on file documented as of this encounter Last Filed Vital Signs Vital Sign Reading Time Taken Comments Blood Pressure 151/75 08/27/2022 12:57 PM CDT Pulse 82 08/27/2022 12:57 PM CDT Temperature 36.8 ??C (98.3 ??F) 08/27/2022 12:57 PM C DT Respiratory Rate - - Oxygen Saturation 95% 08/27/2022 12:57 PM CDT Inhaled Oxygen Concentration - - Weight 93.4 kg (206 lb) 08/27/2022 12:57 PM CDT Height 163.8 cm (5' 4.5 ) 08/27/2022 12:57 PM CD T Body Mass Index 34.81 08/27/2022 12:57 PM CDT documented in this encounter Patient Instructions * Patient Instructions* Elana Oliver, SOFYA - 08/27/2022 1:00 PM CDT [facility] After Visit Summary SHELBIE Lara (Nurse Practitioner) Thank you for coming to the [facility] today. We appreciate this opportunity to participate in your care. We have reviewed the concerns about your memory and thinking. Memory and thinking test scores today: MMSE (Mini Mental Status Exam): Mini-Mental Total Score ((out of 30): 16 A perfect score on this test is 30. A score of of between 27-30 is considered normal. A score of 24-26 is considered mildly impaired. A score of 20-23 is impaired. Scores below 20 show moderate impairment and 10 or below showssevere impairment. Diagnosis We think that the changes you and your family have observed in your memory and thinking are most likely caused by: Alzheimer's dementia It will be important to re-assess your memory in the future. We can compare your test results in the future to the test results from today so we can get a more accurate picture of how your memory haschanged. Medications No changes were made in your medications today Additional Resources and Support: Alzheimer's Association [facility] Chapter: ; (toll free); http://www.alz.org, The Alzheimer's Association 29/12 Helpline provides reliable information and support to all those who need assistance. Call toll-free anytime day or night at . Caregiver Guide: tips for caregivers of people with Alzheimer's dementia, www.jordy.nih.gov/Alzheimers /Publication/Kiaubi-kliqfb-xgtaqdvlrl-disease/about-guide Memory Long Term Solution: [place] is to extend and improve quality time at home for people living with dementia and their care partners, or Memory[facility]org Fanta Coburn R.N. Oxygraph Operator Alzheimer's Association [address] [place] [address] Toll Free: [phone] ext [phone] Email: The best way to reach our team is via My Chart, this is a secure way for us to communicate about your health care. Please call The My Chart Support Desk: [phone] for help with My Chart, or [phone] to obtain a link for access. documented in this encounter Progress Notes * Elana Oliver NP - 08/27/2022 1:00 PM CDT [facility] OFFICE VISIT SHELBIE Lara (Nurse Practitioner) [facility] Department of Neurology Patient Name: PATRICIA HAMLIN Chief Complaint: Memory and thinking difficulty Collateral Source (CS): daughter [place] History of Present Illness: Ms. Hamlin is a 82 y.o. lady who comes to the [facility] today for further evaluation of memory and thinking problems. She is in generally fair health. Dementia History, (portions may be copied and pasted from prior notes): I last saw her 08/2021, Alzheimer dementia, onset 2014, Mini Mental State Exam 12, clinical dementiaratin, sum of box scores 8, the patient lives with her daughter in [facility]. Did not tolerate donepezil/Aricept, will hold off on Namenda/memantine for now, patient and daughter leaning towardnot interested in a trial. Today's Visit: There has not been recent changes in overall health. She is living at the group home about 7 miles from daughter. Her ativan has been increased risperidone. She has gained weight and her breathing is more labored. Her primary care provider started her on Risperdone, she was getting in peoples fac es. She sleeps good and eats good. She likes to drink. She drinks 2-3 beers per day. She walks butnot long distances due to back pain. She sometimes thinks her daughter is her sister. She forgets she lives in a group home. She cannot make a menu selection. CS not sure if she can still read. Sheuses utensils appropriately. She doesn't like to shower. She is incontinent of urine. She changes her underwear on her own. She still calls her daughter, will call late, midnight. She will not remember being here by tomorrow. She does not have trouble with language/word finding skills. She can be inappropriate with people, sexually inappropriate. She does a good job with word finding. She does sleep well. Review of Systems Constitutional: Negative. HENT: Negative. Eyes: Negative. Respiratory: Negative. Cardiovascular: Negative. Gastrointestinal: Negative. Genitourinary: Negative. Musculoskeletal: Positive for back pain. Skin: Negative. Neurological: Negative. Endo/Heme/Allergies: Negative. Psychiatric/Behavioral: Positive for memory loss. Medical Records Review: I reviewed [facility] [place] notes and prior Neuropsychometric testing scores. PHYSICAL EXAMINATION BP 151/75 (BP Location: Right arm, Patient Position: Sitting) Pulse 82 Temp 36.8 ??C (98.3 ??F)(Temporal) Ht 163.8 cm (5' 4.5 ) Wt 93.4 kg (206 lb) SpO2 95% BMI 34.81 kg/m?? Wt Readings from Last 6 Encounters: 08/27/22 93.4 kg (206 lb) 08/27/21 78.9 kg (174 lb) 08/14/20 79.6 kg (175 lb 8 oz) 08/01/19 80.8 kg (178 lb 3.2 oz) 09/15/16 75.4 kg (166 lb 4 oz) General Assessment There were no orthostatic complaints. Cranial Nerves Visual smith testing intact. Pupils were equal, round and reactive to light. Extraocular movementswere normal with smooth pursuit. Facial movement was symmetric. Hearing was intact. Palate elevation was symmetric. Shoulder shrug and head turning were symmetric. Tongue protrusion was midline. Motor Motor exam revealed normal bulk, normal tone, and normal strength throughout. Fine finger movementswere normal . There was no pronator drift. Tremor was absent, bradykinesia was absent. Sensation Sensation was intact to light touch. Coordination Able to extend arms out with eyes closed and touch nose. Reflexes Reflexes were symmetric at the biceps, brachioradialis and knees. Gait Gait was not assessed in wheelchair today. She was fluent throughout the interview and examination. NEUROBEHAVIORAL TESTING REPORT On formal neurobehavioral testing, which took from 1305 to 1325, scores were in the mild to moderately impaired range on tests of semantic memory (language testing). Scores were in the moderately impaired range on tests of episodic memory (Logical Memory). On more global tests, MMSE was 16/30. Episodic recall was 0/5 and 0/3. These findings are consistent with mild to moderately impairment. She was not able to subtract serials threes, was not able to calculate the number of quarters in $6.75. GDS (Geriatric Depression Screen) was administered today, this was reviewed in the psychometric package- She endorsed 0 items on the GDS. My interpretation and reporting of these results took 10 minutes. I reviewed the testing with the CS (CS'S) and patient and compared prior testing scores. Neurobehavioral test results: [facility] [place] [place] Neurobehavioral Status Exam Results 08/01/2019 08/14/2020 08/27/2021 08/27/2022 Repository ICF signed? No No No Yes Verbal Fluency Total Score (No Data) 12 7 6 [place] Naming (15 item) Total Score 13 13 11 (No Data) MMSE Score 21 19 12 16 Word List Memory Task 6 7 (No Data) (No Data) Word List Recall 0 0 (No Data) - Short Blessed Total Score 18 21 10 (No Data) Logical Memory Total Score 3 1 (No Data) 1 Trails A - Seconds to complete 100 129 152 (No Data) Trails A - Errors 1 0 0 - Trails B - Seconds to complete (No Data) (No Data) (No Data) (No Data) Total Score (out of 90) (No Data) (No Data) (No Data) (No Data) Clinical Dementia Rating: [facility] [place] [place] CDR/DIAGNOSIS NEW 08/01/2019 08/14/2020 08/27/2021 08/27/2022 Repository ICF signed? No No No Yes Memory 1 1 1 - Orientation 1 1 2 - Judgement & Problem Solving 1 1 2 - Community Affairs 1 1 1 - Home & Hobbies 1 1 1 - Personal Care 1 1 1 - Global Score 1 1 1 - Sum of Boxes 6 6 8 - Year of Onset 2014 2014 2014 - Alert for Potential Transmissible Disorders No No No - AD Dementia Alzheimer Disease Dementia Alzheimer Disease Dementia Alzheimer Disease Dementia - Mood disorder (any type) - Active Remote - ASSESSMENT Ms. Hamlin is a 82 y.o. lady with a history of slowly progressive cognitive changes, consistent with a clinical diagnosis of Alzheimer's dementia. She has moved to a senior care facility since our last visit, her primary care physician has started her on Risperdal for behavioral issues, she was getting in people's faces and had become aggressive with staff. She is sleeping well. Her daughter reports she is mentally in a much better state since her mother is receiving the care she is needing. Her neuropsych testing is stable. Diagnosis Plan 1. 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) PLAN (Shared with CS, CS's) No change in medications, patient and daughter have not been interested in memory medications in the past Referred to our care consult for questions regarding [place] Medicaid F/u prn No orders of the defined types were placed in this encounter. Patient Instructions [facility] After Visit Summary SHELBIE Lara (Nurse Practitioner) Thank you for coming to the [facility] today. We appreciate this opportunity to participate in your care. We have reviewed the concerns about your memory and thinking. Memory and thinking test scores today: MMSE (Mini Mental Status Exam): Mini-Mental Total Score ((out of 30): 16 A perfect score on this test is 30. A score of of between 27-30 is considered normal. A score of 24-26 is considered mildly impaired. A score of 20-23 is impaired. Scores below 20 show moderate impairment and 10 or below showssevere impairment. Diagnosis We think that the changes you and your family have observed in your memory and thinking are most likely caused by: Alzheimer's dementia It will be important to re-assess your memory in the future. We can compare your test results in the future to the test results from today so we can get a more accurate picture of how your memory haschanged. Medications No changes were made in your medications today Additional Resources and Support: Alzheimer's Association of [place] Chapter: ; (toll free); http://www.alz.org, The Alzheimer's Association 29/12 Helpline provides reliable information and support to all those who need assistance. Call toll-free anytime day or night at . Caregiver Guide: tips for caregivers of people with Alzheimer's dementia, www.jordy.nih.gov/Alzheimers /Publication/Ebfdtn-vnrumj-tgasbqccen-disease/about-guide Memory Long Term Solution: [place] is to extend and improve quality time at home for people living with dementia and their care partners, or [facility] Fanta Coburn R.N. Oxygraph Operator [employer] [address] [place] [address] Toll Free: [phone] ext [phone] Email: The best way to reach our team is via My Chart, this is a secure way for us to communicate about your health care. Please call The My Chart Support Desk: [phone] for help with My Chart, or [phone] to obtain a link for access. My total encounter time on 08/27/2022 was 30 minutes which was spent in the activities documented inthe note. This includes time spent prior to the visit and after the visit in direct care of the patient. This time does not include time spent in any separately reportable services. documented in this encounter Plan of Treatment Not on file documented as of this encounter Visit Diagnoses Diagnosis 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)- Primary documented in this encounter Discontinued Medications Medication Sig Discontinue Reason Start Date End Da te cannabidiol, CBD, (medical cannabis) each 2.5 Doses as needed 08/07 iron 18 mg tablet Take 150 mg by mouth 3 sennosides (SENOKOT ORAL) Take by mouth Thu08/27/2022 HYDROcodone-acetaminophe n (NORCO) 5-325 mg per tablet 08/06/2021 08/27/2022 documented as of this encounter Historical Medications * This list may reflect changes made after this encounter. pioglitazone (ACTOS) 30 mg tablet Take 1 tablet (30 mg total) by mouth daily ferrous sulfate 325 mg (65 mg of elemental iron) tablet Take 1 tablet (325 mg total) by mouth 2 (two) times a day 09/19/2021 risperiDONE (RisperDAL) 0.25 mg tablet 12 08/02/2022 05/20/2024 added in this encounter Care Teams Stereo Compiler Relationship Specialty Start Date End Date Cedric Nguyen MD [address] [place] [address] PCP - General 09/17/16 documented as of this encounter
--- OUTSIDE RECORDS SUMMARY | 2024-05-24 20:20 | XMS_ITS | Clinical Summary ---
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 consultant before breakfast Active omeprazole (PriLOSEC) 20 mg capsule Take 1 capsule (20 mg total) by mouth daily Active atorvastatin (LIPITOR) 10 mg tablet Take 1 tablet (10 mg total) by mouth daily Active amLODIPine (NORVASC) 10 mg tablet Take 1 tablet (10 mg total) by mouth daily Active citalopram (CeleXA) 10 mg tablet Take 2 tablets (20 mg total) by mouth daily Active LORAZEPAM ORAL Take 0.5 mg by mouth Active ferrous sulfate 325 mg (65 mg of elemental iron) tablet Take 1 tablet (325 mg total) by mouth 2 (two) times a day 2 Active pioglitazone (ACTOS) 30 mg tablet Take 1 tablet (30 mg total) by mouth daily Active cyanocobalamin (Vitamin B-12) 1,000 mcg tabletIndicatio ns:Prevention of Vitamin B12 Deficiency Take 1 tablet (1,000 mcg total) by mouth daily Active glimepiride (AMARYL) 1 mg tabletIndicatio ns:type 2 diabetes mellitus Take 1 tablet (1 mg total) by mouth daily before breakfast Active docusate sodium (COLACE) 100 mg capsuleIndicati ons:constipatio n Take 1 capsule (100 mg total) by mouth 2 (two) times a day Active aluminum-magnes ium hydroxide-simet hicone (MAALOX) suspension 200-200-20 mg/5 mL Take by mouth Active acetaminophen (TYLENOL) 325 mg tablet Take 2 tablets (650 mg total) by mouth every 6 (six) hours as needed for pain Active QUEtiapine (SEROquel) 50 mg tabletIndicatio ns:Generalized Anxiety Disorder Take 1 tablet (50 mg total) by mouth nightly 90 tablet 4 Active apixaban (ELIQUIS) 2.5 mg tabletIndicatio ns:VTE Prophylaxis Take 1 tablet (2.5 mg total) by mouth 2 (two) times a day 60 tablet 4 06/18/19 25 Active aspirin 81 mg enteric coated tablet Take 1 tablet (81 mg total) by mouth daily 30 tablet 11 4 05/20/20 25 Active cholecalciferol (VITAMIN D-3) 1,000 unit capsule Take 1 capsule (1,000 Units total) by mouth daily 30 capsule 11 4 05/19/20 25 Active methocarbamoL (ROBAXIN) 500 mg tablet Take 1 tablet (500 mg total) by mouth 3 (three) times a day 90 tablet 4 06/18/19 25 Active senna-docusate (PERICOLACE) 8.6-50 mgIndications:c onstipation Take 1 tablet by mouth 2 (two) times a day 60 tablet 4 06/18/19 25 Active polyethylene glycol (MIRALAX) 17 gram packetIndicatio ns:constipation Take 1 packet (17 g total) by mouth daily 30 packet 4 06/19/19 25 Active lidocaine (LIDODERM) 5 % Place 1 patch on the skin daily Remove & discard patch within 12 hours or as directed by . 30 patch 4 06/18/19 25 Active HYDROmorphone (DILAUDID) 2 mg tabletIndicatio ns:Pain Take 1 tablet (2 mg total) by mouth every 4 (four) hours as needed for pain 8 tablet 4 Active risperiDONE (RisperDAL) 0.25 mg tablet 12 3 05/20/20 24 Discontinu ed(Stop Taking at Discharge) HYDROcodone-sophie taminophen (NORCO) 5-325 mg per tablet 0 4 05/20/20 24 Discontinu ed(Stop Taking at Discharge) cephalexin (KEFLEX) 250 mg capsuleIndicati ons:Urinary Tract/Genitouri nary Infection Take 1 capsule (250 mg total) by mouth 3 (three) times a day for 5 doses 5 capsule 4 05/22/20 24 Active Problems Problem Noted Date Diagnosed Date Urinary retention 05/18/2024 Assessment & Plan (05/18/2024 7:53 AM BRAKE RELINER): 05/16 removed Briscoe- void check 05/17 noted agitation per nursing, and frequent incontinence, Bladder Scan 650 mL, Briscoe catheter placed UTI (urinary tract infection) 05/17/2024 Assessment & Plan (05/18/2024 7:47 AM BRAKE RELINER): 05/14 UA sent on admission, refluxed to CX 05/17 changed Cefepime to Keflex PO x 5 days (05/17-05/22) CX: 05/14 UCX: Klebsiella Pneumoniae ABX: Cefepime (05/14-05/17) Keflex (05/17-05/22) Pubic ramus fracture, right, closed, initial enc ounter 05/14/2024 Assessment & Plan (05/19/2024 1:46 PM BRAKE RELINER): - Orthopedics consult, non-op management - WBAT RLE - Pain control - PT/OT PLAN: Follow up with Dr. Singh, 06/29/21 at 12:30 weight bearing as tolerated, post orthopedic injury DVT prophylaxis Eliquis 2.5 mg pO x 4 weeks at discharge Possible syncopal fall 05/14/2024 Assessment & Plan (05/17/2024 8:26 AM BRAKE RELINER): - Orthostatics - TTE - Carotid duplex - F/u CT body read. ?Possible RUL consolidation on CXR + leukocytosis in ED for which she received a dose of cefepime in the ED 05/15: Syncope workup 05/16 Carotid ultrasounds completed- no interventions required 05/17 ECHO- results pending Discharge planning issues 05/14/2024 Assessment & Plan (05/19/2024 1:46 PM BRAKE RELINER): 05/14 Admitted, syncope, PT/OT 05/16 poorly controlled pain, started schedule pain medications 05/17 agitation, Briscoe catheter placed for urinary retention 05/18 requiring 1:1 sitter 05/19 still requiring 1:1 sitter Treatment Plan completed Acute pain 05/14/2024 Assessment & Plan (05/14/2024 2:29 PM BRAKE RELINER): 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 We discussed the importance of socializing and staying active in which the patient is doing. Follow-up in 6 months or sooner if need be. Assessment & Plan (09/02/2023 2:05 PM CDT): Initiated quetiapine/Seroquel 25 mg nightly for increased agitation. PCP discontinued alprazolam/Xanax recently. Suggested patient may benefit from a psychiatrist for better management of medications. CS and patient declined at this time. Follow-up in 6 months or sooner if need be. Hyperlipidemia 08/01/2019 Assessment & Plan (05/14/2024 1:42 PM BRAKE RELINER): Continue home atorvastatin 10 daily Chronic low back pain 08/01/2019 Hypothyroid 08/01/2019 Assessment & Plan (05/14/2024 1:43 PM BRAKE RELINER): Continue home levothyroxine 137mcg daily Memory changes 08/01/2019 Major depressive disorder 08/01/2019 Essential (primary) hypertension 11/18/2016 Atherosclerosis of both carotid arteries 017 Assessment & Plan (05/18/2024 7:51 AM BRAKE RELINER): - History of R CEA (2016) and known completely occluded L ICA - repeat carotid duplex given possible syncope - patient should be on ASA 81mg once able to confirm she has no contraindications 05/18 started Aspirin 81 mg PO daily Encounters Date Type Department Care Team Description 05/16/2024 6:50 AM BRAKE RELINER Ancillary Procedure [facility] V[facility] IP [address] [place] [address] 05/16/2024 Orders Only [facility] Orthopaedic Surgery [address] 6th [place] [address] [place] [address] Ngoc Singh MD Pubic ramus fracture, right, closed, initial encounter (HCC) (Primary Dx) 05/14/2024 5:23 AM BRAKE RELINER - 05/20/2024 6:45 PM BRAKE RELINER Hospital Encounter [facility] [address] [place] [address] Kenneth Vallecillo MD Theodoro, Daniel L., MD Kronfli, Anthony Philip, MD Knight, Caleb, MD Pubic ramus fracture, right, open, initial encounter (HCC) (Primary Dx); Fall, initial encounter; Hypoxia; Rhinovirus Discharge Disposition: Discharge to SNF 03/17/2024 1:45 PM CDT Office Visit [facility] [address] 6th [address] [place] [address] Chad Boudreaux NP 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) (Primary Dx) from Last 3 Months Surgical History Surgery Date Site/Laterality Comments CAROTID ENDARTERECTOMY 06/08/2016 - 06/07/2017 Right LUMBAR LAMINECTOMY 06/08/2012 - 06/07/2013 Family History Medical History Relation Name Comments Liver disease Father Family history of liver disease - (Added by TW Conv) Cancer Mother Family history of malignant neoplasm - (Added by TW Conv) Relation Name Status Comments Father Mother Social History Tobacco Use Types Packs/Day Years Used Date Smoking Tobacco: Never Smokeless Tobacco: Never Tobacco Cessation:Counseling Given: Not Answered [facility] Utilities Answer Date Recorded In the past 12 months has e [employer], gas, oil, or water [employer] threatened to shut off services in your home? No 05/20/2024 Social Connection and Isolat ion Panel [NHANES] Answer Date Recorded In a typical week, how many times do you talk on the phone with family, friends, or neighbors? More than three times a week 05/20/2024 How often do you get togethe r with friends or relatives? More than three times a week 05/20/2024 How often do you attend chur ch or anabaptism services? Never 05/20/2024 Do you belong to any clubs o r organizations such as moravian groups, unions, fraternal or athletic groups, or school groups? Yes 05/20/2024 How often do you attend meet ings of the clubs or organizations you belong to? 1 to 4 times per year 05/20/2024 Are you , , di vorced, , never , or living with a partner? 05/20/2024 Overall Financial Resource Strain (CARDIA) Answe r Date Recorded How hard is it for you to pa y for the very basics like food, housing, medical care, and heating? Not hard at all 05/20/2024 Hunger Vital Sign Answer Date Recorded Within the past 12 months, y ou worried that your food would run out before you got the money to buy more. Never true 05/20/20 24 Within the past 12 months, t he food you bought just didn't last and you didn't have money to get more. Never true 05/20/2024 PRAPARE - Transportation Answer Date Re corded In the past 12 months, has l ack of transportation kept you from medical appointments or from getting medications? No 05/08 In the past 12 months, has l ack of transportation kept you from meetings, work, or from getting things needed for daily living? No 05/20/2024 Housing Stability Vital Sign Answer Lemuel e Recorded In the last 12 months, was t here a time when you were not able to pay the mortgage or rent on time? No 05/20/2024 In the past 12 months, how m any times have you moved where you were living? 0 05/20/2024 At any time in the past 12 m [facility], were you homeless or living in a nursing home (including now)? No 05/20/2024 Personal Safety Answer Date Recorded Have you ever been in or are you currently in a harmful physical or emotional relationship or is someone making you feel afraid or unsafe? Denies 05/14/2024 Comments Unknown Sex and Gender Information Value Date Recorded Sex Assigned at Not on file Legal Sex Female 8:04 AM CDT Gender Identity Not on file Sexual Orientation Not on file Obstetrics History Last Filed Vital Signs Vital Sign Reading Time Taken Comments Blood Pressure 116/100 05/20/2024 5:11 PM BRAKE RELINER Pulse 99 05/20/2024 5:11 PM BRAKE RELINER Temperature 37.2 ??C (99 ??F) 05/20/2024 5:11 PM BRAKE RELINER Respiratory Rate 20 05/20/2024 5:11 PM BRAKE RELINER Oxygen Saturation 92% 05/20/2024 5:11 PM BRAKE RELINER Inhaled Oxygen Concentration - - Weight 100.7 kg (222 lb) 05/16/2024 9:35 PM BRAKE RELINER Height 163.8 cm (5' 4.5 ) 05/16/2024 9:35 PM BRAKE RELINER Body Mass Index 37.52 05/16/2024 9:35 PM BRAKE RELINER Plan of Treatment Health Maintenance Due Date Last Done Comments Depression Screening 1942 Osteoporosis Screening-Bone Density Scan 1942 DTaP/Tdap/Td Vaccine (1 - Tdap) 1953 Hepatitis B Screening 1960 Zoster Vaccine (1 of 2) 1992 Well Visit 65+ 2007 Pneumococcal vaccine 65+ (2 of 2 - PCV) 05/16/2014 05/16/2013 Covid-19 Vaccine ( season) 2024 05/13/2022, 12/25/2021, 09/14/2020 Influenza Vaccine (#1) 2024 04/13/2014, 2012 Fall Risk Assessment 05/20/2025 05/20/2024 Procedures Procedure Name Priority Date/Time Associated Diagnosis Comments POCT GLUCOSE DEVICE Routine 05/20/2024 5 :16 PM BRAKE RELINER POCT GLUCOSE DEVICE Routine 05/20/2024 1 1:11 AM BRAKE RELINER POCT GLUCOSE DEVICE Routine 05/20/2024 7 :52 AM BRAKE RELINER EGFR Routine 05/19/2024 10:37 PM BRAKE RELINER BASIC METABOLIC PANEL Routine 05/19/2024 10:37 PM BRAKE RELINER POCT GLUCOSE DEVICE Routine 05/19/2024 9 :07 PM BRAKE RELINER POCT GLUCOSE DEVICE Routine 05/19/2024 5 :15 PM BRAKE RELINER POCT GLUCOSE DEVICE Routine 05/19/2024 1 1:11 AM BRAKE RELINER POCT GLUCOSE DEVICE Routine 05/19/2024 7 :27 AM BRAKE RELINER EGFR Routine 05/18/2024 9:10 PM BRAKE RELINER BASIC METABOLIC PANEL Routine 05/18/2024 9:10 PM BRAKE RELINER PHOSPHORUS Routine 05/18/2024 9:10 PM BRAKE RELINER MAGNESIUM Routine 05/18/2024 9:10 PM BRAKE RELINER CBC WITHOUT DIFFERENTIAL Routine 05/18/2024 9:10 PM BRAKE RELINER POCT GLUCOSE DEVICE Routine 05/18/2024 8 :55 PM BRAKE RELINER POCT GLUCOSE DEVICE Routine 05/18/2024 5 :27 PM BRAKE RELINER POCT GLUCOSE DEVICE Routine 05/18/2024 1 1:33 AM BRAKE RELINER POCT GLUCOSE DEVICE Routine 05/18/2024 8 :55 AM BRAKE RELINER POCT GLUCOSE DEVICE Routine 05/17/2024 9 :46 PM BRAKE RELINER EGFR Routine 05/17/2024 9:33 PM BRAKE RELINER BASIC METABOLIC PANEL Routine 05/17/2024 9:33 PM BRAKE RELINER PHOSPHORUS Routine 05/17/2024 9:33 PM BRAKE RELINER MAGNESIUM Routine 05/17/2024 9:33 PM BRAKE RELINER CBC WITHOUT DIFFERENTIAL Routine 05/17/2024 9:33 PM BRAKE RELINER POCT GLUCOSE DEVICE Routine 05/17/2024 9 :02 PM BRAKE RELINER POCT GLUCOSE DEVICE Routine 05/17/2024 5 :22 PM BRAKE RELINER POCT GLUCOSE DEVICE Routine 05/17/2024 1 1:53 AM BRAKE RELINER POCT GLUCOSE DEVICE Routine 05/17/2024 8 :45 AM BRAKE RELINER POTASSIUM, WHOLE BLOOD Routine 05/16/2024 11:23 PM BRAKE RELINER POCT GLUCOSE DEVICE Routine 05/16/2024 8 :26 PM BRAKE RELINER EGFR Routine 05/16/2024 8:26 PM BRAKE RELINER BASIC METABOLIC PANEL Routine 05/16/2024 8:26 PM BRAKE RELINER PHOSPHORUS Routine 05/16/2024 8:26 PM BRAKE RELINER MAGNESIUM Routine 05/16/2024 8:26 PM BRAKE RELINER CBC WITHOUT DIFFERENTIAL Routine 05/16/2024 8:26 PM BRAKE RELINER POCT GLUCOSE DEVICE Routine 05/16/2024 6 :10 PM BRAKE RELINER POCT GLUCOSE DEVICE Routine 05/16/2024 1 :34 PM BRAKE RELINER US CAROTIDS DUPLEX BILATERAL IP Routine 05/16/2024 1:16 PM BRAKE RELINER POCT GLUCOSE DEVICE Routine 05/16/2024 8 :21 AM BRAKE RELINER EGFR Routine 05/15/2024 9:06 PM BRAKE RELINER BASIC METABOLIC PANEL Routine 05/15/2024 9:06 PM BRAKE RELINER PHOSPHORUS Routine 05/15/2024 9:06 PM BRAKE RELINER MAGNESIUM Routine 05/15/2024 9:06 PM BRAKE RELINER CBC WITHOUT DIFFERENTIAL Routine 05/15/2024 9:06 PM BRAKE RELINER POCT GLUCOSE DEVICE Routine 05/15/2024 8 :48 PM BRAKE RELINER POCT GLUCOSE DEVICE Routine 05/15/2024 5 :34 PM BRAKE RELINER POCT GLUCOSE DEVICE Routine 05/15/2024 1 2:51 PM BRAKE RELINER POCT GLUCOSE DEVICE Routine 05/15/2024 7 :55 AM BRAKE RELINER POTASSIUM, WHOLE BLOOD Timed 05/14/2024 11:06 PM BRAKE RELINER EGFR Routine 05/14/2024 9:02 PM BRAKE RELINER BASIC METABOLIC PANEL Routine 05/14/2024 9:02 PM BRAKE RELINER PHOSPHORUS Routine 05/14/2024 9:02 PM BRAKE RELINER MAGNESIUM Routine 05/14/2024 9:02 PM BRAKE RELINER CBC WITHOUT DIFFERENTIAL Routine 05/14/2024 9:02 PM BRAKE RELINER POCT GLUCOSE DEVICE Routine 05/14/2024 6 :10 PM BRAKE RELINER XR PELVIS 3 OR MORE VIEWS ED 05/14/2024 10:46 AM BRAKE RELINER RESPIRATORY PATHOGEN PANEL Routine 05/14/2024 10:[address] BODY OUTSIDE REFERENCE Routine 05/14/2024 10:12 AM BRAKE RELINER URINALYSIS, MICROSCOPIC ONLY STAT 05/14/2024 10:12 AM BRAKE RELINER URINE CULTURE STAT 05/14/2024 10:12 AM BRAKE RELINER URINALYSIS AND REFLEX TO MICROSCOPIC AND CULTURE STAT 05/14/2024 10:12 AM BRAKE RELINER XR CHEST 1 VIEW Critical/Life-T hreatening 05/14/2024 7:22 AM BRAKE RELINER B CHECK SAMPLE STAT 05/14/2024 6:48 AM BRAKE RELINER NEURO CT OUTSIDE CONSULT Routine 05/14/2024 6:09 AM BRAKE RELINER NEURO CT OUTSIDE REFERENCE Routine 05/14/2024 6:[address] BODY OUTSIDE CONSULT Routine 05/14/2024 5:59 AM BRAKE RELINER XR TRANSFER OF OUTSIDE FILMS Routine 05/14/2024 5:56 AM BRAKE RELINER XR TRANSFER OF OUTSIDE FILMS Routine 05/14/2024 5:[address] BODY OUTSIDE REFERENCE Routine 05/14/2024 5:46 AM BRAKE RELINER NEURO CT OUTSIDE REFERENCE Routine 05/14/2024 5:44 AM BRAKE RELINER EGFR STAT 05/14/2024 5:35 AM BRAKE RELINER DIFFERENTIAL AUTO STAT 05/14/2024 5:3 5 AM BRAKE RELINER TYPE AND SCREEN STAT 05/14/2024 5:35 AM BRAKE RELINER APTT STAT 05/14/2024 5:35 AM BRAKE RELINER PROTIME-INR STAT 05/14/2024 5:35 AM BRAKE RELINER COMPREHENSIVE METABOLIC PANEL STAT 05/14/2024 5:35 AM BRAKE RELINER CBC WITH AUTO DIFFERENTIAL STAT 05/14/2024 5:35 AM BRAKE RELINER from Last 3 Months Results * POCT glucose (05/20/2024 5:16 PM BRAKE RELINER) Glucose, POC 126 70 - 199 mg/dL Blood 05/20/2024 5:16 PM BRAKE RELINER 05/20/2024 5:16 PM BRAKE RELINER Landy Sawant MD LAB POCT ORDERABLES - DEVICE Final Result Performing Organization Address City/[facility] Co de Phone Number [facility] [place] [address] * POCT glucose (05/20/2024 11:11 AM BRAKE RELINER) Glucose, POC 118 70 - 199 mg/dL Blood 05/20/2024 11:1 1 AM BRAKE RELINER 05/20/2024 11:11 AM BRAKE RELINER Landy Sawant MD LAB POCT ORDERABLES - DEVICE Final Result [facility] [place] [address] * POCT glucose (05/20/2024 7:52 AM BRAKE RELINER) Glucose, POC 125 70 - 199 mg/dL Blood 05/20/2024 7:52 AM BRAKE RELINER 05/20/2024 7:52 AM BRAKE RELINER us Landy Sawant MD LAB POCT ORDERABLES - DEVICE Final Result Performing Organization Address [facility] Phone Number [facility] Department [place] [address] * eGFR (05/19/2024 10:37 PM BRAKE RELINER) eGFR 63 >=60 mL/min/1. 73 m2 Comment: Interpretive Data Reference Interval Normal ?>/= 90 mL/min/1.73m2 Mildly decreased* ? 60 - 89 mL/min/1.73m2 Mildly to moderately decreased ?45 - 59 mL/min/1.73m2 Moderately to severely decreased ??30 - 44 mL/min/1.73m2 Severely decreased ?15 - 29 mL/min/1.73m2 Kidney Failure ?< 15 ??mL/min/1.73m2 *Relative to young adult level Estimated glomerular filtration rate is determined by the 2020 CKD-EPI equation recommended by the National Kidney Foundation (A Unifying Approach to GFR Estimation: Recommendations of the NKF-ASK Task Force on Reassessing the Inclusion of Race in Diagnosing Kidney Disease, JASN 2020). The CKD-EPI equation should not be used for patients with unstable renal function and has not been validated in children and those over 70. Current interpretive data was last reviewed 2021. Blood 05/19/2024 10:3 7 PM BRAKE RELINER 05/19/2024 10:53 PM BRAKE RELINER Landy Sawant MD LAB BLOOD ORDERABLES F inal Result [facility] [place] [address] * (ABNORMAL) Basic metabolic panel (05/19/2024 10:37 PM BRAKE RELINER) Sodium 138 135 - 145 mmol/L Potassium, pl 4.2 3.3 - 4.9 mmol/L [facility] Chloride 102 97 - 110 mmol/L [facility] CO2 24 22 - 32 mmol/L [facility] Anion gap 12 2 - 15 mmol/L [facility] BUN 25 6 - 25 mg/dL [facility] Creatinine 0.92 0.60 - 1.10 mg/dL [facility] Glucose 125 70 - 199 mg/dL [facility] Comment: Interpretive Data Fasting glucose [...] classification and Diagnosis of Diabetes Diabetes Care 2021; 46: S19-S40. Current interpretive data was last revised 2022. Calcium 8.4(L) 8.5 - 10.3 mg/dL [facility] Blood 05/19/2024 10:3 7 PM BRAKE RELINER 05/19/2024 10:53 PM BRAKE RELINER Landy Sawant MD LAB BLOOD ORDERABLES F inal Result [facility] [place] [address] * POCT glucose (05/19/2024 9:07 PM BRAKE RELINER) Glucose, POC 114 70 - 199 mg/dL Blood 05/19/2024 9:07 PM BRAKE RELINER 05/19/2024 9:07 PM BRAKE RELINER Landy Sawant MD LAB POCT ORDERABLES - DEVICE Final Result Performing Organization Address City/[facility] Co de Phone Number [facility] [place] [address] * POCT glucose (05/19/2024 5:15 PM BRAKE RELINER) Glucose, POC 121 70 - 199 mg/dL Blood 05/19/2024 5:15 PM BRAKE RELINER 05/19/2024 5:15 PM BRAKE RELINER Landy Sawant MD LAB POCT ORDERABLES - DEVICE Final Result Performing Organization Address [facility] Co de Phone Number [facility] [place] [address] * POCT glucose (05/19/2024 11:11 AM BRAKE RELINER) Glucose, POC 118 70 - 199 mg/dL Blood 05/19/2024 11:1 1 AM BRAKE RELINER 05/19/2024 11:11 AM BRAKE RELINER Landy Sawant MD LAB POCT ORDERABLES - DEVICE Final Result Performing Organization Address [facility] Co de Phone Number [facility] Department [place] [address] * POCT glucose (05/19/2024 7:27 AM BRAKE RELINER) Glucose, POC 112 70 - 199 mg/dL Blood 05/19/2024 7:27 AM BRAKE RELINER 05/19/2024 7:27 AM BRAKE RELINER Landy Sawant MD LAB POCT ORDERABLES - DEVICE Final Result Performing Organization Address City/[facility] Co de Phone Number [facility] Department [place] [address] * (ABNORMAL) eGFR (05/18/2024 9:10 PM BRAKE RELINER) [facility] eGFR 53(L) >=60 mL/min/1. 73 m2 Comment: Interpretive Data Reference Interval Normal ?>/= 90 mL/min/1.73m2 Mildly decreased* ? 60 - 89 mL/min/1.73m2 Mildly to moderately decreased ?45 - 59 mL/min/1.73m2 Moderately to severely decreased ??30 - 44 mL/min/1.73m2 Severely decreased ?15 - 29 mL/min/1.73m2 Kidney Failure ?< 15 ??mL/min/1.73m2 *Relative to young adult level Estimated glomerular filtration rate is determined by the 2020 CKD-EPI equation recommended by the National Kidney Foundation (A Unifying Approach to GFR Estimation: Recommendations of the NKF-ASK Task Force on Reassessing the Inclusion of Race in Diagnosing Kidney Disease, JASN 2020). The CKD-EPI equation should not be used for patients with unstable renal function and has not been validated in children and those over 70. Current interpretive data was last reviewed 2021. Blood 05/18/2024 9:10 PM BRAKE RELINER 05/18/2024 9:26 PM BRAKE RELINER us Landy Sawant MD LAB BLOOD ORDERABLES F inal Result [facility] Department [place] [address] * (ABNORMAL) CBC without differential (05/18/2024 9:10 PM BRAKE RELINER) [facility] WBC 9.8 3.8 - 9.9 K/cumm Hgb 9.9(L) 11.9 - 15.5 g/dL [facility] Hct 30.8(L) 35.6 - 45.5 % [facility] Plt 226 150 - 400 K/cumm [facility] MPV 9.7 9.1 - 12.3 fL [facility] RBC 3.12(L) 3.90 - 5.20 M/cumm [facility] MCV 98.7(H) 81.3 - 96.4 fL [facility] MCH 31.7 27.1 - 33.3 pg [facility] MCHC 32.1(L) 32.3 - 35.7 g/dL [facility] RDW CV 14.4 11.1 - 14.9 % [facility] RDW SD 51.3(H) 35.7 - 48.1 fL [facility] NRBC abs 0.02(H) 0.00 - 0.01 K/cumm [facility] Blood 05/18/2024 9:10 PM BRAKE RELINER 05/18/2024 9:26 PM BRAKE RELINER Landy Sawant MD LAB BLOOD ORDERABLES F inal Result Performing Organization Address City/[facility] Co de Phone Number [facility] [place] [place] [address] * Phosphorus (05/18/2024 9:10 PM BRAKE RELINER) [facility] Phosphorus, pl 2.7 2.3 - 4.5 mg/dL Blood 05/18/2024 9:10 PM BRAKE RELINER 05/18/2024 9:26 PM BRAKE RELINER Landy Sawant MD LAB BLOOD ORDERABLES F inal Result Performing Organization Address City/[facility]/ZIP Co de Phone Number [facility] Department [place] [address] * Magnesium (05/18/2024 9:10 PM BRAKE RELINER) Magnesium 2.5 1.4 - 2.5 mg/dL Blood 05/18/2024 9:10 PM BRAKE RELINER 05/18/2024 9:26 PM BRAKE RELINER Landy Sawant MD LAB BLOOD ORDERABLES F inal Result Performing Organization Address [facility] Co de Phone Number [facility] Department [place] [address] * (ABNORMAL) Basic metabolic panel (05/18/2024 9:10 PM BRAKE RELINER) [facility] Sodium 138 135 - 145 mmol/L Potassium, pl 4.4 3.3 - 4.9 mmol/L [facility] Chloride 105 97 - 110 mmol/L [facility] CO2 25 22 - 32 mmol/L [facility] Anion gap 8 2 - 15 mmol/L [facility] BUN 32(H) 6 - 25 mg/dL [facility] Creatinine 1.06 0.60 - 1.10 mg/dL [facility] Glucose 116 70 - 199 mg/dL [facility] Comment: Interpretive Data Fasting glucose [...] classification and Diagnosis of Diabetes Diabetes Care 2021; 46: S19-S40. Current interpretive data was last revised 2022. Calcium 8.8 8.5 - 10.3 mg/dL [facility] Blood 05/18/2024 9:10 PM BRAKE RELINER 05/18/2024 9:26 PM BRAKE RELINER Landy Sawant MD LAB BLOOD ORDERABLES F inal Result Performing Organization Address [facility] Co de Phone Number [facility] [address] * POCT glucose (05/18/2024 8:55 PM BRAKE RELINER) Glucose, POC 110 70 - 199 mg/dL Blood 05/18/2024 8:55 PM BRAKE RELINER 05/18/2024 8:55 PM BRAKE RELINER Landy Sawant MD LAB POCT ORDERABLES - DEVICE Final Result Performing Organization Address City/[facility] [place] [place] [address] * POCT glucose (05/18/2024 5:27 PM BRAKE RELINER) Glucose, POC 115 70 - 199 mg/dL Blood 05/18/2024 5:27 PM BRAKE RELINER 05/18/2024 5:27 PM BRAKE RELINER Landy Sawant MD LAB POCT ORDERABLES - DEVICE Final Result Performing Organization Address City/[facility] [place] [place] [address] * POCT glucose (05/18/2024 11:33 AM BRAKE RELINER) Glucose, POC 139 70 - 199 mg/dL Blood 05/18/2024 11:3 3 AM BRAKE RELINER 05/18/2024 11:33 AM BRAKE RELINER Landy Sawant MD LAB POCT ORDERABLES - DEVICE Final Result Performing Organization Address City/[facility] [place] [address] * POCT glucose (05/18/2024 8:55 AM BRAKE RELINER) Glucose, POC 146 70 - 199 mg/dL Blood 05/18/2024 8:55 AM BRAKE RELINER 05/18/2024 8:55 AM BRAKE RELINER Landy Sawant MD LAB POCT ORDERABLES - DEVICE Final Result Performing Organization Address [facility] Co de Phone Number [facility] [place] [address] * POCT glucose (05/17/2024 9:46 PM BRAKE RELINER) Glucose, POC 144 70 - 199 mg/dL Blood 05/17/2024 9:46 PM BRAKE RELINER 05/17/2024 9:46 PM BRAKE RELINER Landy Sawant MD LAB POCT ORDERABLES - DEVICE Final Result Performing Organization Address [facility] de Phone Number [facility] [place] [address] * (ABNORMAL) eGFR (05/17/2024 9:33 PM BRAKE RELINER) [facility] eGFR 51(L) >=60 mL/min/1. 73 m2 Comment: Interpretive Data Reference Interval Normal ?>/= 90 mL/min/1.73m2 Mildly decreased* ? 60 - 89 mL/min/1.73m2 Mildly to moderately decreased ?45 - 59 mL/min/1.73m2 Moderately to severely decreased ??30 - 44 mL/min/1.73m2 Severely decreased ?15 - 29 mL/min/1.73m2 Kidney Failure ?< 15 ??mL/min/1.73m2 *Relative to young adult level Estimated glomerular filtration rate is determined by the 2020 CKD-EPI equation recommended by the National Kidney Foundation (A Unifying Approach to GFR Estimation: Recommendations of the NKF-ASK Task Force on Reassessing the Inclusion of Race in Diagnosing Kidney Disease, JASN 202). The CKD-EPI equation should not be used for patients with unstable renal function and has not been validated in children and those over 70. Current interpretive data was last reviewed 2021. Blood 05/17/2024 9:33 PM BRAKE RELINER 05/17/2024 9:54 PM BRAKE RELINER Landy Sawant MD LAB BLOOD ORDERABLES F inal Result Performing Organization Address [facility]/State/ZIP Co de Phone Number [facility] Department [place] [address] * (ABNORMAL) CBC without differential (05/17/2024 9:33 PM BRAKE RELINER) WBC 13.0(H) 3.8 - 9.9 K/cumm Hgb 10.8(L) 11.9 - 15.5 g/dL [facility] Hct 32.9(L) 35.6 - 45.5 % [facility] Plt 248 150 - 400 K/cumm [facility] MPV 10.1 9.1 - 12.3 fL [facility] RBC 3.39(L) 3.90 - 5.20 M/cumm [facility] MCV 97.1(H) 81.3 - 96.4 fL [facility] MCH 31.9 27.1 - 33.3 pg [facility] MCHC 32.8 32.3 - 35.7 g/dL [facility] RDW CV 13.9 11.1 - 14.9 % [facility] RDW SD 49.3(H) 35.7 - 48.1 fL [facility] NRBC abs 0.00 0.00 - 0.01 K/cumm [facility] Blood 05/17/2024 9:33 PM BRAKE RELINER 05/17/2024 9:55 PM BRAKE RELINER Landy Sawant MD LAB BLOOD ORDERABLES F inal Result Performing Organization Address City/[facility] Co de Phone Number [facility] [place] [address] * Phosphorus (05/17/2024 9:33 PM BRAKE RELINER) [facility] Phosphorus, pl 3.3 2.3 - 4.5 mg/dL Blood 05/17/2024 9:33 PM BRAKE RELINER 05/17/2024 9:54 PM BRAKE RELINER Landy Sawant MD LAB BLOOD ORDERABLES F inal Result Performing Organization Address [facility] Co de Phone Number [facility] [place] [address] * Magnesium (05/17/2024 9:33 PM BRAKE RELINER) [facility] Magnesium 2.4 1.4 - 2.5 mg/dL Blood 05/17/2024 9:33 PM BRAKE RELINER 05/17/2024 9:54 PM BRAKE RELINER Landy Sawant MD LAB BLOOD ORDERABLES F inal Result Performing Organization Address [facility] de Phone Number [facility] [place] [address] * (ABNORMAL) Basic metabolic panel (05/17/2024 9:33 PM BRAKE RELINER) [facility] Sodium 136 135 - 145 mmol/L Potassium, pl 4.5 3.3 - 4.9 mmol/L [facility] Chloride 102 97 - 110 mmol/L [facility] CO2 23 22 - 32 mmol/L [facility] Anion gap 11 2 - 15 mmol/L [facility] BUN 40(H) 6 - 25 mg/dL [facility] Creatinine 1.09 0.60 - 1.10 mg/dL [facility] Glucose 124 70 - 199 mg/dL [facility] Comment: Interpretive Data Fasting glucose [...] classification and Diagnosis of Diabetes Diabetes Care 2021; 46: S19-S40. Current interpretive data was last revised 2022. Calcium 8.6 8.5 - 10.3 mg/dL [facility] Blood 05/17/2024 9:33 PM BRAKE RELINER 05/17/2024 9:54 PM BRAKE RELINER Landy Sawant MD LAB BLOOD ORDERABLES F inal Result Performing Organization Address [facility] de Phone Number [facility] Department [place] [address] * POCT glucose (05/17/2024 9:02 PM BRAKE RELINER) Glucose, POC 177 70 - 199 mg/dL Blood 05/17/2024 9:02 PM BRAKE RELINER 05/17/2024 9:02 PM BRAKE RELINER Landy Sawant MD LAB POCT ORDERABLES - DEVICE Final Result Performing Organization Address [facility] de Phone Number [facility] Department [place] [address] * POCT glucose (05/17/2024 5:22 PM BRAKE RELINER) Glucose, POC 143 70 - 199 mg/dL Blood 05/17/2024 5:22 PM BRAKE RELINER 05/17/2024 5:22 PM BRAKE RELINER Landy Sawant MD LAB POCT ORDERABLES - DEVICE Final Result Performing Organization Address [facility] de Phone Number [facility] [place] [address] * POCT glucose (05/17/2024 11:53 AM BRAKE RELINER) [facility] Glucose, POC 160 70 - 199 mg/dL Blood 05/17/2024 11:5 3 AM BRAKE RELINER 05/17/2024 11:53 AM BRAKE RELINER Landy Sawant MD LAB POCT ORDERABLES - DEVICE Final Result Performing Organization Address City/[facility] Co de Phone Number [facility] [place] [address] * POCT glucose (05/17/2024 8:45 AM BRAKE RELINER) [facility] Glucose, POC 135 70 - 199 mg/dL Blood 05/17/2024 8:45 AM BRAKE RELINER 05/17/2024 8:45 AM BRAKE RELINER Landy Sawant MD LAB POCT ORDERABLES - DEVICE Final Result Performing Organization Address [facility] Co de Phone Number [facility] Department [place] [address] * Potassium, whole blood (05/16/2024 11:23 PM BRAKE RELINER) [facility] Potassium, bld 4.7 3.3 - 4.9 mmol/L Blood 05/16/2024 11:2 3 PM BRAKE RELINER 05/16/2024 11:29 PM BRAKE RELINER Landy Sawant MD LAB BLOOD ORDERABLES F inal Result Performing Organization Address City/[facility]/ZIP Co de Phone Number [facility] [place] [address] * (ABNORMAL) eGFR (05/16/2024 8:26 PM BRAKE RELINER) [facility] eGFR 37(L) >=60 mL/min/1. 73 m2 Comment: Interpretive Data Reference Interval Normal ?>/= 90 mL/min/1.73m2 Mildly decreased* ? 60 - 89 mL/min/1.73m2 Mildly to moderately decreased ?45 - 59 mL/min/1.73m2 Moderately to severely decreased ??30 - 44 mL/min/1.73m2 Severely decreased ?15 - 29 mL/min/1.73m2 Kidney Failure ?< 15 ??mL/min/1.73m2 *Relative to young adult level Estimated glomerular filtration rate is determined by the 2020 CKD-EPI equation recommended by the National Kidney Foundation (A Unifying Approach to GFR Estimation: Recommendations of the NKF-ASK Task Force on Reassessing the Inclusion of Race in Diagnosing Kidney Disease, JASN 2020). The CKD-EPI equation should not be used for patients with unstable renal function and has not been validated in children and those over 70. Current interpretive data was last reviewed 2021. Blood 05/16/2024 8:26 PM BRAKE RELINER 05/16/2024 8:43 PM BRAKE RELINER Landy Sawant MD LAB BLOOD ORDERABLES F inal Result [facility] Department [place] [address] * POCT glucose (05/16/2024 8:26 PM BRAKE RELINER) [facility] Glucose, POC 148 70 - 199 mg/dL Blood 05/16/2024 8:26 PM BRAKE RELINER 05/16/2024 8:26 PM BRAKE RELINER Landy Sawant MD LAB POCT ORDERABLES - DEVICE Final Result Performing Organization Address [facility] Co de Phone Number [facility] [place] [address] * (ABNORMAL) CBC without differential (05/16/2024 8:26 PM BRAKE RELINER) [facility] WBC 14.3(H) 3.8 - 9.9 K/cumm Hgb 10.2(L) 11.9 - 15.5 g/dL [facility] Hct 30.8(L) 35.6 - 45.5 % [facility] Plt 268 150 - 400 K/cumm [facility] MPV 10.4 9.1 - 12.3 fL [facility] RBC 3.22(L) 3.90 - 5.20 M/cumm [facility] MCV 95.7 81.3 - 96.4 fL [facility] MCH 31.7 27.1 - 33.3 pg [facility] MCHC 33.1 32.3 - 35.7 g/dL [facility] RDW CV 14.1 11.1 - 14.9 % [facility] RDW SD 49.5(H) 35.7 - 48.1 fL [facility] NRBC abs 0.00 0.00 - 0.01 K/cumm [facility] Blood 05/16/2024 8:26 PM BRAKE RELINER 05/16/2024 8:43 PM BRAKE RELINER Landy Sawant MD LAB BLOOD ORDERABLES F inal Result Performing Organization Address [facility]/ZIP Co de Phone Number [facility] [place] [address] * Phosphorus (05/16/2024 8:26 PM BRAKE RELINER) [facility] Phosphorus, pl 3.9 2.3 - 4.5 mg/dL Blood 05/16/2024 8:26 PM BRAKE RELINER 05/16/2024 8:43 PM BRAKE RELINER us Landy Sawant MD LAB BLOOD ORDERABLES F inal Result Performing Organization Address City/[facility]/ZIP Co de Phone Number [facility] [place] [address] * Magnesium (05/16/2024 8:26 PM BRAKE RELINER) [facility] Magnesium 2.5 1.4 - 2.5 mg/dL Blood 05/16/2024 8:26 PM BRAKE RELINER 05/16/2024 8:43 PM BRAKE RELINER Landy Sawant MD LAB BLOOD ORDERABLES F inal Result Performing Organization Address [facility] Co de Phone Number [facility] Department [place] [address] * (ABNORMAL) Basic metabolic panel (05/16/2024 8:26 PM BRAKE RELINER) [facility] Sodium 130(L) 135 - 145 mmol/L Potassium, pl 5.1(H) 3.3 - 4.9 mmol/L [facility] Comment:Hemolyzed; Potassium value may be falsely elevated by as much as 0.3-0.5 mmol/L. Suggest redraw and reanalysis. Chloride 98 97 - 110 mmol/L [facility] CO2 21(L) 22 - 32 mmol/L [facility] Anion gap 11 2 - 15 mmol/L [facility] BUN 49(H) 6 - 25 mg/dL [facility] Creatinine 1.43(H) 0.60 - 1.10 mg/dL [facility] Glucose 139 70 - 199 mg/dL [facility] Comment: Interpretive Data Fasting glucose [...] classification and Diagnosis of Diabetes Diabetes Care 2021; 46: S19-S40. Current interpretive data was last revised 2022. Calcium 8.3(L) 8.5 - 10.3 mg/dL [facility] Blood 05/16/2024 8:26 PM BRAKE RELINER 05/16/2024 8:43 PM BRAKE RELINER Landy Sawant MD LAB BLOOD ORDERABLES F inal Result Performing Organization Address City/[facility] Co de Phone Number [facility] [place] [address] * POCT glucose (05/16/2024 6:10 PM BRAKE RELINER) Glucose, POC 161 70 - 199 mg/dL Blood 05/16/2024 6:10 PM BRAKE RELINER 05/16/2024 6:10 PM BRAKE RELINER Landy Sawant MD LAB POCT ORDERABLES - DEVICE Final Result Performing Organization Address [facility] de Phone Number [facility] [place] [address] * POCT glucose (05/16/2024 1:34 PM BRAKE RELINER) Glucose, POC 163 70 - 199 mg/dL Blood 05/16/2024 1:34 PM BRAKE RELINER 05/16/2024 1:34 PM BRAKE RELINER Landy Sawant MD LAB POCT ORDERABLES - DEVICE Final Result Performing Organization Address [facility] de Phone Number [facility] [place] [address] * US Carotids Duplex Bilateral (05/16/2024 1:16 PM BRAKE RELINER) Anatomical Region Laterality Modality Vascular Bilateral Ultrasound 05/16/2024 11:5 7 AM BRAKE RELINER Narrative 05/18/2024 12:28 AM BRAKE RELINER [employer] - Department of Vascular Surgery, Vascular Laboratory [address] [place] [id number] Carotid Duplex Ultrasound Report Patient Name: PATRICIA VALDEZ : 1940 (83y 10m) Study Date: 05/16/2024 11:57:01 AM Gender: F Tech: [place] Location: [id number] Ref Provider: LANDY SAWANT Quality: Adequate Order Provider: LANDY SAWANT ?? PROCEDURES: Carotid Report: Carotid duplex examination of the extracranial arteries was performed using 2D, color and spectral Doppler. ?? INDICATIONS: Syncope. ?? MEASUREMENTS: Right ?Value ? Left ? Value RT Prox CCA PSV ?117 cm/sec ?LT Prox CCA PSV ?73 cm/sec RT Prox CCA EDV ?16 cm/sec ? LT Prox CCA EDV ?14 cm/sec RT Distal CCA PSV ?106 cm/sec RT Distal CCA EDV ?27 cm/sec RT Prox ICA PSV ?120 cm/sec RT Prox ICA EDV ?24 cm/sec RT Mid ICA PSV ? 93 cm/sec RT Mid ICA EDV ? 24 cm/sec RT Distal ICA PSV ?68 cm/sec RT Distal ICA EDV ?19 cm/sec RT ECA Prx PSV ? 180 cm/sec RT ICA/CCA ? 1.13 ratio RT VERT PSV ?60 cm/sec - ?? FINDINGS: Performing Commercial Insurance Underwriter: Batsheva Kohli RVT. Rt Common Carotid Artery: The plaque in the right CCA appears to be heterogeneous, calcified and smooth. Atherosclerotic changes of the right common carotid artery with no hemodynamically significant Doppler findings. Rt Internal Carotid Artery: Duplex imaging of the right internal carotid artery is within normal limits without evidence for atherosclerotic disease. The right internal carotid artery is tortuous. Rt External Carotid Artery: Patent right external carotid artery with evidence of atherosclerotic disease present. Rt Vertebral Artery: The right vertebral artery is patent with antegrade flow. Comments: Patient terminated exam. Was not cooperative to allow for testing. RN present in room. Technically difficult exam due to patient movement. ?? CONCLUSIONS: 1. The right internal carotid artery disease is consistent with a less than 50% stenosis. 2. Normal, antegrade flow is noted in the right vertebral artery. 3. No evidence of hemodynamically significant stenosis in the right common carotid artery. ?? HISTORY: HTN, HLD, Alzheimer's Dementia, diabetes mellitus type 2, s/p fall - ?? PREVIOUS STUDIES: No previous studies for comparison. ?? DISCLAIMER: The study images and the final report will be retained in the patient chart by the Vascular Laboratory for the legally required time period. This chart constitutes the legal record of any testing performed. ?? ATTESTATION: I have reviewed and interpreted the pertinent images and measurements of this study. I attest to the conclusions in the final report that is provided above. Electronically Signed By: Nii Wilson MD [facility] 05/18/2024 12:27:58 AM BRAKE RELINER Procedure Note Nii Wilson MD - 05/18/2024 [facility] - Department of Vascular Surgery,Vascular Laboratory [address] [place] [id number] Carotid Duplex Ultrasound Report Patient Name: PATRICIA VALDEZ : 1940 (83y 10m) Study Date: 05/16/2024 11:57:01 AM Gender: F Tech: [place] Location: [id number] Ref Provider: LANDY SAWANT Quality: Adequate Order Provider: LANDY SAWANT PROCEDURES: Carotid Report: Carotid duplex examination of the extracranial arterieswas performed using 2D, color and spectral Doppler. INDICATIONS: Syncope. MEASUREMENTS: Right Value Left Value RT Prox CCA PSV 117 cm/sec LT Prox CCA PSV 73 cm/sec RT Prox CCA EDV 16 cm/sec LT Prox CCA EDV 14 cm/sec RT Distal CCA PSV 106cm/sec RT Distal CCA EDV 27cm/sec RT Prox ICA PSV 120cm/sec RT Prox ICA EDV 24cm/sec RT Mid ICA PSV 93cm/sec RT Mid ICA EDV 24cm/sec RT Distal ICA PSV 68cm/sec RT Distal ICA EDV 19cm/sec RT ECA Prx PSV 180cm/sec RT ICA/CCA 1.13ratio RT VERT PSV 60cm/sec - FINDINGS: Performing Commercial Insurance Underwriter: Batsheva Kohli RVT. Rt Common Carotid Artery: The plaque in the right CCA appears to beheterogeneous, calcified and smooth. Atherosclerotic changes of the right common carotidartery with no hemodynamically significant Doppler findings. Rt Internal Carotid Artery: Duplex imaging of the right internal carotidartery is within normal limits without evidence for atherosclerotic disease. The rightinternal carotid artery is tortuous. Rt External Carotid Artery: Patent right external carotid artery withevidence of atherosclerotic disease present. Rt Vertebral Artery: The right vertebral artery is patent with antegradeflow. Comments: Patient terminated exam. Was not cooperative to allow fortesting. RN present in room. Technically difficult exam due to patient movement. CONCLUSIONS: 1. The right internal carotid artery disease is consistent with a lessthan 50% stenosis. 2. Normal, antegrade flow is noted in the right vertebral artery. 3. No evidence of hemodynamically significant stenosis in the right commoncarotid artery. HISTORY: HTN, HLD, Alzheimer's Dementia, diabetes mellitus type 2, s/p fall - PREVIOUS STUDIES: No previous studies for comparison. DISCLAIMER: The study images and the final report will be retained in the patientchart by the Vascular Laboratory for the legally required time period. This chartconstitutes the legal record of any testing performed. ATTESTATION: I have reviewed and interpreted the pertinent images and measurements ofthis study. I attest to the conclusions in the final report that is provided above. Electronically Signed By: Nii Wilson MD FACS 05/18/2024 12:27:58 AM BRAKE RELINER Landy Sawant MD IM US PROCEDURES Chanelle l Result * POCT glucose (05/16/2024 8:21 AM BRAKE RELINER) Glucose, POC 138 70 - 199 mg/dL Blood 05/16/2024 8:21 AM BRAKE RELINER 05/16/2024 8:21 AM BRAKE RELINER us Landy Sawant MD LAB POCT ORDERABLES - DEVICE Final Result Performing Organization Address [facility] Co de Phone Number [facility] [place] [address] * (ABNORMAL) eGFR (05/15/2024 9:06 PM BRAKE RELINER) eGFR 35(L) >=60 mL/min/1. 73 m2 Comment: Interpretive Data Reference Interval Normal ?>/= 90 mL/min/1.73m2 Mildly decreased* ? 60 - 89 mL/min/1.73m2 Mildly to moderately decreased ?45 - 59 mL/min/1.73m2 Moderately to severely decreased ??30 - 44 mL/min/1.73m2 Severely decreased ?15 - 29 mL/min/1.73m2 Kidney Failure ?< 15 ??mL/min/1.73m2 *Relative to young adult level Estimated glomerular filtration rate is determined by the 2020 CKD-EPI equation recommended by the National Kidney Foundation (A Unifying Approach to GFR Estimation: Recommendations of the NKF-ASK Task Force on Reassessing the Inclusion of Race in Diagnosing Kidney Disease, JASN 2020). The CKD-EPI equation should not be used for patients with unstable renal function and has not been validated in children and those over 70. Current interpretive data was last reviewed 2021. Blood 05/15/2024 9:06 PM BRAKE RELINER 05/15/2024 9:34 PM BRAKE RELINER us Landy Sawant MD LAB BLOOD ORDERABLES F inal Result Performing Organization Address City/[facility] Co de Phone Number [facility] [place] [address] * (ABNORMAL) CBC without differential (05/15/2024 9:06 PM BRAKE RELINER) [facility] WBC 14.8(H) 3.8 - 9.9 K/cumm Hgb 10.8(L) 11.9 - 15.5 g/dL [facility] Hct 33.0(L) 35.6 - 45.5 % [facility] Plt 224 150 - 400 K/cumm [facility] MPV 9.9 9.1 - 12.3 fL [facility] RBC 3.44(L) 3.90 - 5.20 M/cumm [facility] MCV 95.9 81.3 - 96.4 fL [facility] MCH 31.4 27.1 - 33.3 pg [facility] MCHC 32.7 32.3 - 35.7 g/dL [facility] RDW CV 14.1 11.1 - 14.9 % [facility] RDW SD 50.0(H) 35.7 - 48.1 fL [facility] NRBC abs 0.00 0.00 - 0.01 K/cumm [facility] Blood 05/15/2024 9:06 PM BRAKE RELINER 05/15/2024 9:29 PM BRAKE RELINER Landy Sawant MD LAB BLOOD ORDERABLES F inal Result Performing Organization Address [facility] Co de Phone Number [facility] Department [place] [address] * Phosphorus (05/15/2024 9:06 PM BRAKE RELINER) [facility] Phosphorus, pl 3.7 2.3 - 4.5 mg/dL Blood 05/15/2024 9:06 PM BRAKE RELINER 05/15/2024 9:34 PM BRAKE RELINER Landy Sawant MD LAB BLOOD ORDERABLES F inal Result Performing Organization Address City/[facility] Co de Phone Number [facility] Department [place] [address] * Magnesium (05/15/2024 9:06 PM BRAKE RELINER) Pathologist [facility] Magnesium 2.3 1.4 - 2.5 mg/dL Blood 05/15/2024 9:06 PM BRAKE RELINER 05/15/2024 9:34 PM BRAKE RELINER Landy Sawant MD LAB BLOOD ORDERABLES F inal Result [facility] [place] [address] * (ABNORMAL) Basic metabolic panel (05/15/2024 9:06 PM BRAKE RELINER) Pathologist [facility] Sodium 137 135 - 145 mmol/L Potassium, pl 5.1(H) 3.3 - 4.9 mmol/L [facility] Chloride 103 97 - 110 mmol/L [facility] CO2 22 22 - 32 mmol/L [facility] Anion gap 12 2 - 15 mmol/L [facility] BUN 50(H) 6 - 25 mg/dL [facility] Creatinine 1.50(H) 0.60 - 1.10 mg/dL [facility] Glucose 164 70 - 199 mg/dL [facility] Comment: Interpretive Data Fasting glucose [...] classification and Diagnosis of Diabetes Diabetes Care 2021; 46: S19-S40. Current interpretive data was last revised 2022. Calcium 8.7 8.5 - 10.3 mg/dL [facility] Blood 05/15/2024 9:06 PM BRAKE RELINER 05/15/2024 9:34 PM BRAKE RELINER Landy Sawant MD LAB BLOOD ORDERABLES F inal Result [facility] [place] [address] * POCT glucose (05/15/2024 8:48 PM BRAKE RELINER) Glucose, POC 162 70 - 199 mg/dL Blood 05/15/2024 8:48 PM BRAKE RELINER 05/15/2024 8:48 PM BRAKE RELINER Landy Sawant MD LAB POCT ORDERABLES - DEVICE Final Result Performing Organization Address [facility] Co de Phone Number [facility] [place] [address] * POCT glucose (05/15/2024 5:34 PM BRAKE RELINER) Glucose, POC 138 70 - 199 mg/dL Blood 05/15/2024 5:34 PM BRAKE RELINER 05/15/2024 5:34 PM BRAKE RELINER Landy Sawant MD LAB POCT ORDERABLES - DEVICE Final Result Performing Organization Address City/[facility]/ZIP Co de Phone Number [facility] [place] [address] * POCT glucose (05/15/2024 12:51 PM BRAKE RELINER) Glucose, POC 138 70 - 199 mg/dL Blood 05/15/2024 12:5 1 PM BRAKE RELINER 05/15/2024 12:51 PM BRAKE RELINER Landy Sawant MD LAB POCT ORDERABLES - DEVICE Final Result [facility] [place] [address] * (ABNORMAL) POCT glucose (05/15/2024 7:55 AM BRAKE RELINER) [facility] Glucose, POC 276(H) 70 - 199 mg/dL Blood 05/15/2024 7:55 AM BRAKE RELINER 05/15/2024 7:55 AM BRAKE RELINER Landy Sawant MD LAB POCT ORDERABLES - DEVICE Final Result Performing Organization Address City/[facility] Co de Phone Number [facility] [place] [address] * (ABNORMAL) Potassium, whole blood (05/14/2024 11:06 PM BRAKE RELINER) [facility] Potassium, bld 5.0(H) 3.3 - 4.9 mmol/L Blood 05/14/2024 11:0 6 PM BRAKE RELINER 05/14/2024 11:18 PM BRAKE RELINER Landy Sawant MD LAB BLOOD ORDERABLES F inal Result Performing Organization Address [facility] Co de Phone Number [facility] Department [place] [address] * (ABNORMAL) eGFR (05/14/2024 9:02 PM BRAKE RELINER) [facility] eGFR 31(L) >=60 mL/min/1. 73 m2 Comment: Interpretive Data Reference Interval Normal ?>/= 90 mL/min/1.73m2 Mildly decreased* ? 60 - 89 mL/min/1.73m2 Mildly to moderately decreased ?45 - 59 mL/min/1.73m2 Moderately to severely decreased ??30 - 44 mL/min/1.73m2 Severely decreased ?15 - 29 mL/min/1.73m2 Kidney Failure ?< 15 ??mL/min/1.73m2 *Relative to young adult level Estimated glomerular filtration rate is determined by the 2020 CKD-EPI equation recommended by the National Kidney Foundation (A Unifying Approach to GFR Estimation: Recommendations of the NKF-ASK Task Force on Reassessing the Inclusion of Race in Diagnosing Kidney Disease, JASN 2020). The CKD-EPI equation should not be used for patients with unstable renal function and has not been validated in children and those over 70. Current interpretive data was last reviewed 2021. Blood 05/14/2024 9:02 PM BRAKE RELINER 05/14/2024 9:24 PM BRAKE RELINER Landy Sawant MD LAB BLOOD ORDERABLES F inal Result [facility] [place] [address] * (ABNORMAL) CBC without differential (05/14/2024 9:02 PM BRAKE RELINER) WBC 12.7(H) 3.8 - 9.9 K/cumm Hgb 11.8(L) 11.9 - 15.5 g/dL [facility] Hct 36.5 35.6 - 45.5 % [facility] Plt 221 150 - 400 K/cumm [facility] MPV 10.1 9.1 - 12.3 fL [facility] RBC 3.73(L) 3.90 - 5.20 M/cumm [facility] MCV 97.9(H) 81.3 - 96.4 fL [facility] MCH 31.6 27.1 - 33.3 pg [facility] MCHC 32.3 32.3 - 35.7 g/dL [facility] RDW CV 14.4 11.1 - 14.9 % [facility] RDW SD 52.1(H) 35.7 - 48.1 fL [facility] NRBC abs 0.00 0.00 - 0.01 K/cumm [facility] Blood 05/14/2024 9:02 PM BRAKE RELINER 05/14/2024 9:24 PM BRAKE RELINER Landy Sawant MD LAB BLOOD ORDERABLES F inal Result Performing Organization Address [facility] Co de Phone Number [facility] [place] [address] * (ABNORMAL) Phosphorus (05/14/2024 9:02 PM BRAKE RELINER) Pathologist [facility] Phosphorus, pl 5.1(H) 2.3 - 4.5 mg/dL Blood 05/14/2024 9:02 PM BRAKE RELINER 05/14/2024 9:24 PM BRAKE RELINER Result [facility] Landy Sawant MD LAB BLOOD ORDERABLES F inal Result Performing Organization Address [facility] de Phone Number [facility] [place] [address] * Magnesium (05/14/2024 9:02 PM BRAKE RELINER) [facility] Magnesium 2.2 1.4 - 2.5 mg/dL Blood 05/14/2024 9:0 2 PM BRAKE RELINER 05/14/2024 9:24 PM BRAKE RELINER Result [facility] Landy Sawant MD LAB BLOOD ORDERABLES F inal Result Performing Organization Address [facility] de Phone Number [facility] [place] [address] * (ABNORMAL) Basic metabolic panel (05/14/2024 9:02 PM BRAKE RELINER) [facility] Sodium 135 135 - 145 mmol/L Potassium, pl 5.1(H) 3.3 - 4.9 mmol/L [facility] Chloride 103 97 - 110 mmol/L [facility] CO2 20(L) 22 - 32 mmol/L [facility] Anion gap 12 2 - 15 mmol/L [facility] BUN 44(H) 6 - 25 mg/dL [facility] Creatinine 1.63(H) 0.60 - 1.10 mg/dL [facility] Glucose 183 70 - 199 mg/dL [facility] Comment: Interpretive Data Fasting glucose [...] classification and Diagnosis of Diabetes Diabetes Care 2021; 46: S19-S40. Current interpretive data was last revised 2022. Calcium 8.5 8.5 - 10.3 mg/dL [facility] Blood 05/14/2024 9:02 PM BRAKE RELINER 05/14/2024 9:24 PM BRAKE RELINER us Landy Sawant MD LAB BLOOD ORDERABLES F inal Result [facility] [place] [address] * POCT glucose (05/14/2024 6:10 PM BRAKE RELINER) [facility] Signature Glucose, POC 148 70 - 199 mg/dL Blood 05/14/2024 6:10 PM BRAKE RELINER 05/14/2024 6:10 PM BRAKE RELINER Landy Sawant MD LAB POCT ORDERABLES - DEVICE Final Result Performing Organization Address [facility]/ZIP Co de Phone Number [facility] [place] [address] * XR Pelvis 3 or More Views (05/14/2024 10:46 AM BRAKE RELINER) Anatomical Region Laterality Modality Pelvis, Body N/A Computed Radiogr aphy 05/14/2024 11:1 9 AM BRAKE RELINER Impressions 05/14/2024 11:19 AM BRAKE RELINER There are fractures of the right superior and inferior pubic ramus as well as the right sacral ala. ??Contrast is noted within the urinary bladder. No definite extraluminal contrast. ??If there is concern for bladder injury, consider CT cystogram. Electronically signed by: Kendal Braun M.D. Narrative 05/14/2024 11:19 AM BRAKE RELINER EXAMINATION: XR PELVIS 3 OR MORE VIEWS HISTORY: Pelvic fracture COMPARISON: 05/14/2024 Procedure Note Kendal Braun MD - 05/14/2024 EXAMINATION: XR PELVIS 3 OR MORE VIEWS HISTORY: Pelvic fracture COMPARISON: 05/14/2024 IMPRESSION: There are fractures of the right superior and inferior pubic ramus as well as the right sacral ala. Contrast is noted within the urinary bladder. No definite extraluminal contrast. If there is concern for bladder injury, consider CT cystogram. Electronically signed by: Kendal Braun M.D. Alexis Sawyer MD IMG XR PROCEDURES Chanelle l Result * (ABNORMAL) Respiratory pathogen panel Nasopharyngeal (05/14/2024 10:15 AM BRAKE RELINER) Pathologist [facility] Influenza A RNA Not Detected Not Detected Influenza B RNA Not Detected Not Detected [facility] RSV RNA Not Detected Not Detected [facility] COVID-19 RNA Not Detected Not Detected [facility] Coronavirus 229E RNA Not Detected Not Detected [facility] Coronavirus HKU1 RNA Not Detected Not Detected [facility] Coronavirus NL63 RNA Not Detected Not Detected [facility] Coronavirus OC43 RNA Not Detected Not Detected [facility] Adenovirus DNA Not Detected Not Detected [facility] Metapneumovirus RNA Not Detected Not Detected [facility] Rhinovirus/Enterov irus RNA Detected(A) Not Detected [facility] Parainfluenza 1 RNA Not Detected Not Detected [facility] Parainfluenza 2 RNA Not Detected Not Detected [facility] Parainfluenza 3 RNA Not Detected Not Detected [facility] Parainfluenza 4 RNA Not Detected Not Detected [facility] B. pertussis DNA Not Detected Not Detected [facility] B. parapertussis DNA Not Detected Not Detected [facility] C. pneumoniae DNA Not Detected Not Detected [facility] M. pneumoniae DNA Not Detected Not Detected [facility] Nasopharyngeal 05/14/2024 10 :15 AM BRAKE RELINER 05/14/2024 10:43 AM BRAKE RELINER Narrative [facility] - 05/14/2024 11:35 AM BRAKE RELINER Is the Patient experiencing symptoms consistent with COVID?->Yes Surveillance testing for transplant patient?->No ??Interpretive Data The [employer]inoCyte FilmArray Respiratory Panel (RP2.1) assay is a multiplexed real-time PCR based nucleic acid test capable of simultaneous qualitative detection and identification of multiple respiratory viral and bacterial nucleic acids, including SARS Coronavirus 2 (the causative agent of COVID-19). The following bacteria, viruses and virus subtypes can be identified using the FilmArray RP2.1 assay: Bordetella pertussis, Bordetella parapertussis, Chlamydia pneumoniae, Mycoplasma pneumoniae, Adenovirus, SARS Coronavirus 2, seasonal coronaviruses (Coronavirus HKU1, Coronavirus NL63, Coronavirus 229E, and Coronavirus OC43), Influenza A, Influenza A subtype H1, Influenza A subtype H3, Influenza A subtype 2009 H1, Influenza B, Metapneumovirus, Parainfluenza 1, Parainfluenza 2, Parainfluenza 3, Parainfluenza 4, RSV, Rhinovirus/Enterovirus. Due to the genetic similarity between human Rhinovirus and Enterovirus, the FilmArray RP2.1 assay cannot reliably differentiate them. Coronavirus OC43 may cross-react with some isolates of Coronavirus HKU1. ??A dual positive result may be due to cross-reactivity or may indicate a co-infection. The detection and identification of specific viral and bacterial nucleic acids from individuals exhibiting signs and symptoms of a respiratory infection aids in the diagnosis of respiratory infection if used in conjunction with other clinical and epidemiological information. ??The results of this test should not be used as the sole basis for diagnosis, treatment, or other management decisions. ??Negative results in the setting of a respiratory illness may be due to infection with pathogens that are not detected by this test. ??Positive results do not rule out infection/co-infection with other organisms. ??The agent(s) detected by the FilmArray RP2.1 may not be the definite cause of disease. ??Additional testing (lab, imaging, etc.) may be necessary when evaluating a patient with possible respiratory tract infection. The FilmArray RP2.1 assay has FDA clearance for testing of MANAGER ANIMAL swabs. ??The performance of additional specimen types has been assessed by the performing laboratory. ??The performance characteristics of this assay have been determined by [facility] Molecular Infectious Disease Laboratory. Current interpretive data was last revised on 22. us Frandy Ferreira MD LAB MICROBIOLOGY - GENERAL ORDERABLES Final Result Performing Organization Address [facility] Co de Phone Number [facility] [place] [address] * CT Body Outside Reference (05/14/2024 10:12 AM BRAKE RELINER) Impressions RAD_PACS_[facility] - 05/14/2024 10:12 AM BRAKE RELINER These images are for Reference purposes only and have not been reviewed by [facility] Radiology. ??There will be no report generated by a [facility] Radiologist. Narrative RAD_PACS_[facility] - 05/14/2024 10:12 AM BRAKE RELINER EXAMINATION: ??Images For Reference Purposes Only us Frandy Ferreira MD IMG CT PROCEDURES Final Re sult Performing Organization Address [facility] Co de Phone Number [email or web address] * (ABNORMAL) Urinalysis reflex to microscopic and culture Urine (05/14/2024 10:12 AM BRAKE RELINER) Color, ur Straw Yellow Clarity, ur Cloudy(A) Clear [facility] Specific gravity, ur 1.014 1.003 - 1.030 [facility] pH, urine 6.0 [facility] Comment: Interpretive Data ? Urine pH is affected by diet, medications, systemic acid-base disturbances, and renal tubular function. ??pH may affect urinary stone formation. ??For example, urine pH below 6.0 may help reduce the tendency for calcium phosphate stones and pH greater than 6.0 may reduce the tendency for uric acid stone formation. Source: [facility] Current Interpretive Data was last revised on 2017 Protein, ur ql Negative Negative [facility] Glucose, ur ql Negative Negative [facility] Ketones, ur Negative Negative [facility] Bilirubin, ur Negative Negative [facility] Blood, ur Negative Negative [facility] Urobilinogen, ur <2.0 <2.0 mg/dL [facility] Nitrite, ur Negative Negative [facility] Leukocyte esterase, ur 3+(A) Negative [facility] UA reflex comment Reflex to microscopic UA will be performed. [facility] Urine 05/14/2024 10:1 2 AM BRAKE RELINER 05/14/2024 10:17 AM BRAKE RELINER Alexis Sawyer MD LAB MICROBIOLOGY - GEN ERAL ORDERABLES Final Result Performing Organization Address [facility] de Phone Number [facility] Department [place] [address] * (ABNORMAL) Urinalysis, microscopic only (05/14/2024 10:12 AM BRAKE RELINER) WBC, ur >50(A) 0 - 5 /HPF RBC, ur 11-20(A) 0 - 2 /HPF [facility] Epithelial cells, squamous, ur 1-5 0 - 5 /HPF [facility] Bacteria, ur 1+(A) [facility] Culture Reflex Comment Reflex to urine culture will be performed. [facility] Urine 05/14/2024 10:1 2 AM BRAKE RELINER 05/14/2024 10:17 AM BRAKE RELINER Alexis Sawyer MD LAB URINE ORDERABLES F inal Result Performing Organization Address [facility] Co de Phone Number [facility] [place] [address] * (ABNORMAL) Urine culture Urine (05/14/2024 10:12 AM BRAKE RELINER) Report Final Report: Greater than or equal to 100,000 colonies/mL of Klebsiella pneumoniae (.) Organism KLEBSIELLA PNEUMONIAE [facility] Urine 05/14/2024 10:1 2 AM BRAKE RELINER 05/14/2024 5:03 PM BRAKE RELINER Narrative [facility] - 05/16/2024 12:42 PM BRAKE RELINER Urine culture reflexed based upon urinalysis results. Testing performed by [facility] ([phone]) Organism Antibiotic Method Susceptibility Klebsiella pneumoniae Ampicillin INTERPRETATION Resistant Klebsiella pneumoniae Cefazolin INTERPRETATION Susceptible Klebsiella pneumoniae Nitrofurantoin INTERPRETATION Resistant Klebsiella pneumoniae Gentamicin INTERPRETATION Susceptible Klebsiella pneumoniae Trimethoprim with Sulfamethoxazole INTERPRETATION Resistant Klebsiella pneumoniae Meropenem INTERPRETATION Susceptible Klebsiella pneumoniae Cefepime INTERPRETATION Susceptible Klebsiella pneumoniae Ciprofloxacin INTERPRETATION Susceptible Klebsiella pneumoniae Ceftazidime INTERPRETATION Susceptible Klebsiella pneumoniae Ceftriaxone INTERPRETATION Susceptible Klebsiella pneumoniae Piperacillin/Tazobactam INTERPRE TATION Susceptible Klebsiella pneumoniae Cephalexin INTERPRETATION Susceptible Klebsiella pneumoniae Cefuroxime-axetil INTERPRETATION Susceptible Klebsiella pneumoniae Cefdinir INTERPRETATION Susceptible us Alexis Sawyer MD LAB MICROBIOLOGY - GEN ERAL ORDERABLES Final Result [facility] Department [place] [address] * XR Chest 1 Vw Portable (05/14/2024 7:22 AM BRAKE RELINER) Anatomical Region Laterality Modality Body, Chest N/A Computed Radiogr aphy 05/14/2024 9:44 AM BRAKE RELINER Impressions 05/14/2024 10:36 AM BRAKE RELINER No prior examinations available for comparison. Correlation is made to outside reference same day CT scan. There are small lung volumes with bibasilar atelectasis. No definite pulmonary edema. There is a mildly enlarged cardiac silhouette. The mediastinal silhouette is normal. No right pleural effusion. Possible small left layering pleural effusion. No pneumothorax. Dictated by: Dennis Hoang M.D. The radiology attending physician has personally reviewed this study, and had reviewed and/or edited this written report and agrees with it. Electronically signed by: Kendal Braun M.D. Narrative 05/14/2024 10:36 AM BRAKE RELINER EXAMINATION: 1 view chest radiograph Procedure Note Kendal Braun MD - 05/14/2024 EXAMINATION: 1 view chest radiograph IMPRESSION: No prior examinations available for comparison. Correlation is made to outside reference same day CT scan. There are small lung volumes with bibasilar atelectasis. No definite pulmonary edema. There is a mildly enlarged cardiac silhouette. The mediastinal silhouette is normal. No right pleural effusion. Possible small left layering pleural effusion. No pneumothorax. Dictated by: Dennis Hoang M.D. The radiology attending physician has personally reviewed this study, and had reviewed and/or edited this written report and agrees with it. Electronically signed by: Kendal Braun M.D. Alexis Sawyer MD IMG XR PROCEDURES Chanelle l Result * Check Sample (05/14/2024 6:48 AM BRAKE RELINER) ABO Rh O Positive [facility] OTHER 05/14/2024 6:48 AM BRAKE RELINER 05/14/2024 6:55 AM BRAKE RELINER Kenneth Vallecillo MD LAB BLOOD ORDERABLES Final Re sult [facility] [place] [address] [facility] * Neuro CT Outside Consult (05/14/2024 6:09 AM BRAKE RELINER) Anatomical Region Laterality Modality N/A Computed Tomogra phy 05/14/2024 6:35 AM BRAKE RELINER Impressions 05/14/2024 9:34 AM BRAKE RELINER No acute cervical spine fracture. The findings, conclusions and recommendations within this report do not replace the initial findings, conclusions ??and recommendations made at the facility where the study was performed based upon the imaging and clinical condition at that time. ??Comparison with the prior report and clinical history is necessary. ??The provided images may or may not represent the [place] source data set and thus may contain changes that may lower the accuracy of this second-opinion interpretation. Dictated by: Virgilio Dempsey MD The radiology attending physician has personally reviewed this study, and had reviewed and/or edited this written report and agrees with it. Electronically signed by: Evelyne Saleh M.D. Narrative 05/14/2024 9:34 AM BRAKE RELINER EXAMINATION: RADIOLOGY CONSULTATION ON OUTSIDE IMAGING STUDY STUDY INITIALLY PERFORMED: 05/14/2024 at outside hospital. TYPE OF STUDY: Multiple CT images of the cervical spine without intravenous contrast are provided at the time of this interpretation. CONTRAST ROUTE: No contrast was administered. The protocol was adequate to address the clinical question. The outside final report was not available at the time of this second opinion interpretation. TYPE OF CONSULTATION: Consult on outside imaging study with images submitted through Outside Image Sharing Service DATE OF CONSULTATION: 05/14/2024 6:32 AM HISTORY: Fall COMPARISON: None available. FINDINGS: There is mild anterolisthesis of C4 on C5. ??There is no compression fracture. ??Craniocervical junction is normal. ??There is moderate disc height loss at C5-C6 and to a lesser extent C6-C7. ??No soft tissue abnormality identified. ??Calcified granuloma in the right lung apex. 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 ??There is multilevel uncovertebral joint osteoarthritis resulting in up to moderate neural foraminal stenosis at C5-C6. Procedure Note Evelyne Saleh MD - 05/14/2024 EXAMINATION: RADIOLOGY CONSULTATION ON OUTSIDE IMAGING STUDY STUDY INITIALLY PERFORMED: 05/14/2024 at outside hospital. TYPE OF STUDY: Multiple CT images of the cervical spine without intravenous contrast are provided at the time of this interpretation. CONTRAST ROUTE: No contrast was administered. The protocol was adequate to address the clinical question. The outside final report was not available at the time of this second opinion interpretation. TYPE OF CONSULTATION: Consult on outside imaging study with images submitted through Outside Image Sharing Service DATE OF CONSULTATION: 05/14/2024 6:32 AM HISTORY: Fall COMPARISON: None available. FINDINGS: There is mild anterolisthesis of C4 on C5. There is no compression fracture. Craniocervical junction is normal. There is moderate disc height loss at C5-C6 and to a lesser extent C6-C7. No soft tissue abnormality identified. Calcified granuloma in the right lung apex. 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 There is multilevel uncovertebral joint osteoarthritis resulting in up to moderate neural foraminal stenosis at C5-C6. IMPRESSION: No acute cervical spine fracture. The findings, conclusions and recommendations within this report do not replace the initial findings, conclusions and recommendations made at the facility where the study was performed based upon the imaging and clinical condition at that time. Comparison with the prior report and clinical history is necessary. The provided images may or may not represent the [place] source data set and thus may contain changes that may lower the accuracy of this second-opinion interpretation. Dictated by: Virgilio Dempsey MD The radiology attending physician has personally reviewed this study, and had reviewed and/or edited this written report and agrees with it. Electronically signed by: Evelyne Saleh M.D. Alexis Sawyer MD IM CT PROCEDURES Chanelle l Result * Neuro CT Outside Reference (05/14/2024 6:04 AM BRAKE RELINER) Impressions [facility] - 05/14/2024 6:04 AM BRAKE RELINER These images are for Reference purposes only and have not been reviewed by [facility] Radiology. ??There will be no report generated by a [facility] Radiologist. Narrative [facility] - 05/14/2024 6:04 AM BRAKE RELINER EXAMINATION: ??Images For Reference Purposes Only Alexis Sawyer MD [facility] [place] PROCEDURES Chanelle l Result [facility] * CT Body Outside Consult (05/14/2024 5:59 AM BRAKE RELINER) Anatomical Region Laterality Modality Body N/A Computed Tomogra phy 05/14/2024 6:16 AM BRAKE RELINER Impressions 05/14/2024 10:03 AM BRAKE RELINER This study was initially nominated as a consult on outside images via Outside Image Sharing Service. However, a consult was not performed because no images were included in the packet. ??If interpretation is desired, uploaded images appropriately and resubmitted for consultation. Accordingly, there will be no separate report of this study generated by a [facility] Radiologist. Dictated by: Kavitha Ba MD The radiology attending physician has personally reviewed this study, and had reviewed and/or edited this written report and agrees with it. Electronically signed by: Kendal Braun M.D. Narrative 05/14/2024 10:03 AM BRAKE RELINER EXAMINATION: ??CHANGE CONSULT ON OUTSIDE IMAGES TO REFERENCE IMAGES Procedure Note Kendal Braun MD - 05/14/2024 EXAMINATION: CHANGE CONSULT ON OUTSIDE IMAGES TO REFERENCE IMAGES IMPRESSION: This study was initially nominated as a consult on outside images via Outside Image Sharing Service. However, a consult was not performed because no images were included in the packet. If interpretation is desired, uploaded images appropriately and resubmitted for consultation. Accordingly, there will be no separate report of this study generated by a [facility] Radiologist. Dictated by: Kavitha Ba MD The radiology attending physician has personally reviewed this study, and had reviewed and/or edited this written report and agrees with it. Electronically signed by: Kendal Braun M.D. Alexis Sawyer MD IMG CT PROCEDURES Chanelle l Result * XR Outside Reference (05/14/2024 5:56 AM BRAKE RELINER) Impressions [facility] - 05/14/2024 5:56 AM BRAKE RELINER These images are for Reference purposes only and have not been reviewed by [facility] Radiology. ??There will be no report generated by a [facility] Radiologist. Narrative [facility] - 05/14/2024 5:56 AM BRAKE RELINER EXAMINATION: ??Images For Reference Purposes Only Alexis Sawyer MD IMG XR PROCEDURES Chanelle l Result [facility] * XR Outside Reference (05/14/2024 5:48 AM BRAKE RELINER) Impressions [facility] - 05/14/2024 5:48 AM BRAKE RELINER These images are for Reference purposes only and have not been reviewed by [facility] Radiology. ??There will be no report generated by a [facility] Radiologist. Narrative [facility] - 05/14/2024 5:48 AM BRAKE RELINER EXAMINATION: ??Images For Reference Purposes Only Alexis Sawyer MD IMG XR PROCEDURES Chanelle l Result Performing Organization Address [facility] de Phone Number [facility] * CT Body Outside Reference (05/14/2024 5:46 AM BRAKE RELINER) Impressions [facility] - 05/14/2024 5:46 AM BRAKE RELINER These images are for Reference purposes only and have not been reviewed by [facility] Radiology. ??There will be no report generated by a [facility] Radiologist. Narrative [facility] - 05/14/2024 5:46 AM BRAKE RELINER EXAMINATION: ??Images For Reference Purposes Only Alexis Sawyer MD IMG CT PROCEDURES Chanelle l Result Performing Organization Address [facility] de Phone Number [facility] * Neuro CT Outside Reference (05/14/2024 5:44 AM BRAKE RELINER) Impressions [facility] - 05/14/2024 5:44 AM BRAKE RELINER These images are for Reference purposes only and have not been reviewed by [facility] Radiology. ??There will be no report generated by a [facility] Radiologist. Narrative [facility] - 05/14/2024 5:44 AM BRAKE RELINER EXAMINATION: ??Images For Reference Purposes Only Alexis Sawyer MD IMG CT PROCEDURES Chanelle l Result Performing Organization Address [facility] Co de Phone Number [facility] * (ABNORMAL) eGFR (05/14/2024 5:35 AM BRAKE RELINER) Pathologist [facility] [place] eGFR 42(L) >=60 mL/min/1. 73 m2 Comment: Interpretive Data Reference Interval Normal ?>/= 90 mL/min/1.73m2 Mildly decreased* ? 60 - 89 mL/min/1.73m2 Mildly to moderately decreased ?45 - 59 mL/min/1.73m2 Moderately to severely decreased ??30 - 44 mL/min/1.73m2 Severely decreased ?15 - 29 mL/min/1.73m2 Kidney Failure ?< 15 ??mL/min/1.73m2 *Relative to young adult level Estimated glomerular filtration rate is determined by the 2020 CKD-EPI equation recommended by the National Kidney Foundation (A Unifying Approach to GFR Estimation: Recommendations of the NKF-ASK Task Force on Reassessing the Inclusion of Race in Diagnosing Kidney Disease, JASN 2020). The CKD-EPI equation should not be used for patients with unstable renal function and has not been validated in children and those over 70. Current interpretive data was last reviewed 2021. Blood 05/14/2024 5:35 AM BRAKE RELINER 05/14/2024 5:51 AM BRAKE RELINER us Alexis Sawyer MD LAB BLOOD ORDERABLES F inal Result [facility] Department of Laboratories [place], [place] [id number] * (ABNORMAL) Differential, auto (05/14/2024 5:35 AM BRAKE RELINER) Pathologist [facility] Neutrophil abs 15.6(H) 1.5 - 6.5 K/cumm Imm gran abs 0.1 0.0 - 0.1 K/cumm [facility] Lymphocyte abs 1.6 0.8 - 3.3 K/cumm [facility] Monocyte abs 1.4(H) 0.2 - 0.8 K/cumm [facility] Eosinophil abs 0.1 0.0 - 0.5 K/cumm [facility] Basophil abs 0.1 0.0 - 0.1 K/cumm [facility] Neutrophil pct 83.1 % [facility] Comment: Interpretive Data Percent cell count reference ranges are not reported, since discordance with absolute values may lead to misinterpretation of CBC data. Current Interpretive Data was last revised on 2017. Imm gran pct 0.6 % [facility] Comment: Interpretive Data Percent cell count reference ranges are not reported, since discordance with absolute values may lead to misinterpretation of CBC data. Current Interpretive Data was last revised on 2017. Lymphocyte pct 8.3 % [facility] Comment: Interpretive Data Percent cell count reference ranges are not reported, since discordance with absolute values may lead to misinterpretation of CBC data. Current Interpretive Data was last revised on 2017. Monocyte pct 7.2 % [facility] Comment: Interpretive Data Percent cell count reference ranges are not reported, since discordance with absolute values may lead to misinterpretation of CBC data. Current Interpretive Data was last revised on 2017. Eosinophil pct 0.3 % [facility] Comment: Interpretive Data Percent cell count reference ranges are not reported, since discordance with absolute values may lead to misinterpretation of CBC data. Current Interpretive Data was last revised on 2017. Basophil pct 0.5 % [facility] Comment: Interpretive Data Percent cell count reference ranges are not reported, since discordance with absolute values may lead to misinterpretation of CBC data. Current Interpretive Data was last revised on 2017. Blood 05/14/2024 5:35 AM BRAKE RELINER 05/14/2024 6:20 AM BRAKE RELINER us Alexis Sawyer MD LAB BLOOD ORDERABLES F inal Result [facility] Department [place] [address] * (ABNORMAL) CBC with auto differential (05/14/2024 5:35 AM BRAKE RELINER) [facility] WBC 18.8(H) 3.8 - 9.9 K/cumm Hgb 12.6 11.9 - 15.5 g/dL [facility] Hct 38.6 35.6 - 45.5 % [facility] Plt 274 150 - 400 K/cumm [facility] MPV 9.8 9.1 - 12.3 fL [facility] RBC 3.96 3.90 - 5.20 M/cumm [facility] MCV 97.5(H) 81.3 - 96.4 fL [facility] MCH 31.8 27.1 - 33.3 pg [facility] MCHC 32.6 32.3 - 35.7 g/dL [facility] RDW CV 14.2 11.1 - 14.9 % [facility] RDW SD 51.6(H) 35.7 - 48.1 fL [facility] NRBC abs 0.00 0.00 - 0.01 K/cumm [facility] Blood 05/14/2024 5:35 AM BRAKE RELINER 05/14/2024 6:20 AM BRAKE RELINER Alexis Sawyer MD LAB BLOOD ORDERABLES F inal Result Performing Organization Address City/[facility] de Phone Number [facility] Department [place] [address] * aPTT (05/14/2024 5:35 AM BRAKE RELINER) [facility] aPTT 32 28 - 38 sec Comment: Interpretive Data Heparin therapeutic range: 66.0 - 100.0 seconds. Range based on correlation with therapeutic heparin activity range of 0.3 - 0.7 Units/mL. Current interpretive data was last revised on 2023. Blood 05/14/2024 5:35 AM BRAKE RELINER 05/14/2024 5:57 AM BRAKE RELINER Alexis Sawyer MD LAB BLOOD ORDERABLES F inal Result Performing Organization Address City/State/[facility] Co de Phone Number [facility] [place] [address] * Protime-INR (05/14/2024 5:35 AM BRAKE RELINER) Pathologist [facility] PT 12.2 9.7 - 13.0 sec INR 1.13 0.90 - 1.20 [facility] Comment: Interpretive data Oral anticoagulant therapeutic ranges: Venous thromboembolism prophylaxis or treatment: 2.0-3.0 CARDIOLOGY Standard range: 2.0-3.0 High-intensity range: 2.5-3.5 Refer to indication-specific guidelines for appropriate target ranges for prosthetic heart valve replacement. Current interpretive data was last revised on 2019. Blood 05/14/2024 5:35 AM BRAKE RELINER 05/14/2024 5:57 AM BRAKE RELINER Alexis Sawyer MD LAB BLOOD ORDERABLES F inal Result Performing Organization Address [facility] [place] [address] * Type and screen (05/14/2024 5:35 AM BRAKE RELINER) [facility] Trey, indirect Negative ABO Rh O Positive [facility] Blood 05/14/2024 5:35 AM BRAKE RELINER 05/14/2024 5:45 AM BRAKE RELINER Narrative [facility] - 05/14/2024 6:53 AM BRAKE RELINER Has the patient had Daratumumab or Isatuximab in the past 6 months?->Unknown Alexis Sawyer MD LAB BLOOD BANK TEST OR DERABLES Final Result Performing Organization Address [facility] [place] [address] * (ABNORMAL) Comprehensive metabolic panel (05/14/2024 5:35 AM BRAKE RELINER) [facility] Sodium 134(L) 135 - 145 mmol/L Potassium, pl 4.7 3.3 - 4.9 mmol/L [facility] Chloride 101 97 - 110 mmol/L [facility] CO2 23 22 - 32 mmol/L [facility] Anion gap 10 2 - 15 mmol/L [facility] BUN 34(H) 6 - 25 mg/dL [facility] Creatinine 1.29(H) 0.60 - 1.10 mg/dL [facility] Glucose 149 70 - 199 mg/dL [facility] Comment: Interpretive Data Fasting glucose [...] classification and Diagnosis of Diabetes Diabetes Care 2021; 46: S19-S40. Current interpretive data was last revised 2022. Calcium 8.8 8.5 - 10.3 mg/dL [facility] Bilirubin, total 0.7 0.1 - 1.2 mg/dL [facility] Protein, pl 7.3 6.5 - 8.5 g/dL [facility] Albumin 3.9 3.5 - 5.0 g/dL [facility] Alk phos 134(H) 40 - 130 Units/L [facility] ALT 29 7 - 45 Units/L [facility] AST 39 10 - 45 Units/L [facility] Blood 05/14/2024 5:35 AM BRAKE RELINER 05/14/2024 5:51 AM BRAKE RELINER us Alexis Sawyer MD LAB BLOOD ORDERABLES F inal Result [facility] Department [place] [address] from Last 3 Months Insurance [facility] [address] [facility] [address] MEDICARE [employer] Advance Directives For more information, please contact: [phone] Documents on File Type Date Recorded 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
--- OUTSIDE RECORDS SUMMARY | 2024-05-24 20:20 | XMS_ITS | Encounter Summary ---
Author Organization [facility] Address [address] [place] [address] Phone Care Team Providers Care Fingerprint Technician Name Role Phone Cedric Nguyen MD Primary Care Provide r Encounter Details Date Type Department Care Team (Late st Contact Info) Description 02/09/[address] [facility] [address] 6[address] [place] [address] Fanta Coburn Social History Tobacco Use Types Packs/Day Years Used Date Smoking Tobacco: Never Comments Unknown Sex and Gender Information Value Date Recorded Sex Assigned at Not on file Legal Sex Female 8:04 AM CDT Gender Identity Not on file Sexual Orientation Not on file documented as of this encounter Miscellaneous Notes * Telephone Encounter - Fanta Coburn - 02/09/2023 9:14 PM CDT This CC sent Laura the following email: Your mother's nurse practitioner at the [facility] said you had questions about burial expenses & Medicaid eligibility. You can't hold money back for burial, but can purchase a pre-paid /burial plan. These are exempt from being counted as an asset in determining Medicaid eligibility. I hope this answers your question. documented in this encounter Plan of Treatment Not on file documented as of this encounter Visit Diagnoses Not on filedocumented in this encounter Care Teams Fingerprint Technician Relationship Specialty Start Date End Date Cedric Nguyen MD [address] [place] [address] PCP - General 09/17/16 documented as of this encounter
--- OUTSIDE RECORDS SUMMARY | 2024-05-24 20:20 | XMS_ITS | Encounter Summary ---
Author Organization [facility] Address [address] [place] [address] Phone Care Team Providers Care Gas Engine Mechanic Name Role Phone Cedric Nguyen MD Primary Care Provide r Reason for Visit * Reason Onset Date Comments Last Progress Note 09/07/2023 Encounter Details Date Type Department Care Team (Late st Contact Info) Description 09/07/[address] [place] [id number] [facility] First Floor [address] [place] [address] Mare Morales RMA Last Progress Note Social History Tobacco Use Types Packs/Day Years Used Date Smoking Tobacco: Never Comments Unknown Sex and Gender Information Value Date Recorded Sex Assigned at Not on file Legal Sex Female 8:04 AM CDT Gender Identity Not on file Sexual Orientation Not on file documented as of this encounter Miscellaneous Notes * Telephone Encounter - Mare Morales RMA - 09/07/2023 4:00 PM CDT Hanane mcdonald,, states she is calling from 's office requesting most recent office notes? If questions callback [phone] or fax [phone]. documented in this encounter Plan of Treatment Not on file documented as of this encounter Visit Diagnoses Not on filedocumented in this encounter Care Teams Gas Engine Mechanic Relationship Specialty Start Date End Date Cedric Nguyen MD [address] [place] [address] PCP - General 09/17/16 documented as of this encounter
--- OUTSIDE RECORDS SUMMARY | 2024-05-24 20:20 | XMS_ITS | Encounter Summary ---
Author Organization [facility] Address [address] [place] [address] Phone Care Team Providers Care Special Events Coordinator Name Role Phone Cedric Nguyen MD Primary Care Provide r Reason for Visit * Reason Comments Follow-up Encounter Details Date Type Department Care Team (Late st Contact Info) Description 08/27/2021 2:00 PM CDT Office Visit [facility] [address] 6th [address] [place] [address] Elana Oliver NP [address] [place] [address] Late onset Alzheimer's disease without behavioral disturbance (HCC) (Primary Dx) Social History [...] Sign Reading Time Taken Comments Blood Pressure 103/47 08/27/2021 1:42 PM CDT Pulse 97 08/27/2021 1:42 PM CDT Temperature 36.2 ??C (97.1 ??F) 08/27/2021 1:42 PM CD T Respiratory Rate - - Oxygen Saturation 94% 08/27/2021 1:42 PM CDT Inhaled Oxygen Concentration - - Weight 78.9 kg (174 lb) 08/27/2021 1:42 PM CDT Height 163.8 cm (5' 4.5 ) 08/27/2021 1:42 PM CDT Body Mass Index 29.41 08/27/2021 1:42 PM CDT documented in this encounter Patient Instructions * Patient Instructions* Elana Oliver, PIPE RACKER - 08/27/2021 2:00 PM CDT Images from the original note were not included. For Ms. Patricia Valdez (: 1940) [facility], Department of Neurology Clinic (Nurse Fine Grader, Mandie Vega) Provider today: Elana Oliver Nurse Practitioner FEEDBACK/DIAGNOSTIC ISSUES REGARDING BRAIN HEALTH Thank you for coming to the [facility] today. We appreciate this opportunity to participate in your care. We have reviewed the concerns about your memory and thinking. Diagnosis We think the changes you and your family have observed in your memory and thinking are most likely caused by: Alzheimer's dementia, mild to moderate impairment. We recommend you get an ID Bracelet: Unremovable Alzheimer's & Dementia Medical ID Bracelet Set with FREE ID Tag and Engraving. Unremovable clasp requires 2-hands to open for safe return of wandering memory impaired elderly men and women. All custom sized WaterWear Bracelets?? come in stainless Integrated biometrics. Call [phone]. Https://www .[employer]store/alzheimers Medications: No changes were made in your medications today You were not interested in medications for memory. We tried donepezil/Aricept in the past but you had some side effects, we could consider another medication Namenda/memantine moving forward. Memantine (Namenda) is approved by the FDA for treatment of moderate to severe Alzheimer's disease.It works by regulating the activity of glutamate, a messenger chemical widely involved in brain functions, including learning and memory. It's taken as a pill or capsule either once or twice daily. Common side effects include dizziness, headache, constipation, fatigue, confusion and agitation. The dose slowly increases weekly over one month, then you will take a maintenance dose. Let us know if you would like to try this medication. Additional Recommendations: information below on stages of Alzheimer dementia: Alzheimer's Dementia Alzheimer's dementia (AD) is a chronic, progressive condition that affects the brain. It causes a gradual loss of memory and higher intellectual functions.??A person with AD may have trouble recognizing familiar people and places, or knowing what day it is. The person???s memory, judgment, and decision-making may also be affected. In severe cases, the person may not respond when someone talks to him or her. AD is the most common form of dementia. Doctors don???t fully understand what causes AD. It has no cure. But medicines can treat some of the symptoms. Common symptoms include the following: ?? Mild AD: Early AD symptoms may be minor and last from 1 to 3 years. ?? Memory loss: Remembering what happened years ago, but unable to remember things from yesterday or forgetting the names of common things or people you know ?? Confusion about what month or season it is ?? Forgetting to brush your teeth or comb your hair ?? Difficulty taking care of your home or finances or difficulty making decisions ?? Loss of interest in your usual activities ?? Feeling depressed, angry, or confused about the changes you notice ?? Moderate AD: ?? Problems choosing what clothes to wear, doing simple jobs, or caring for your self ?? Unable to recognize people familiar to you ?? Difficulty finding words to say what you mean, trouble talking in normal sentences, or speech that is difficult to understand ?? Feeling anxious, restless, and agitated at night and seeming depressed or worried ?? Difficulty controlling emotions and becoming loud, violent, and hard to control ?? Becoming confused and wandering off or pacing ?? Unable to plan and follow through with activities ?? Thinking something is true even though it is not, seeing things that are not actually there, or inability to control when you urinate ?? Severe AD: ?? Complete loss of memory ?? Complete loss of speech ?? Loss of bladder and bowel control ?? Finding it very difficult to walk ?? Becoming angry and out of control or aggressive and destroying things ?? Unable to care for yourself and needing someone to take care of you Care for someone who has AD: ?? Keep activities the same from day to day. People with AD do best with daily routines. Take breaks often. Save difficult activities for when the person seems the most alert. Choose activities that the person is interested in doing. Help the person get started and try to break difficult activitiesinto small steps. ?? Keep mealtimes at the same time each day. It is best to limit food choices. Eating patterns may change in people with AD. It may help to have the person eat small meals and snacks. Ask healthcare providers about giving vitamins if you do not think the person is eating enough. ?? Get regular exercise. Regular exercise may help decrease depression and anxiety and improve sleep. Walking is a good exercise for people with AD. Check local [facility] centers for information about group exercise activities. ?? Learn to recognize pain or discomfort. Noisy breathing or rigid body movements may be a sign of pain. A sad or scared look may also mean the person is having discomfort. The person may also constantly make certain noises when he or she is in pain. ?? Provide personal care. Make sure to check the water temperature of the bath or shower so they donot burn themselves. It may help to choose and lay out clothes each night for them to wear the nextday. Make sure to brush the person's teeth or dentures daily. Do not forget to take the person to the dentist for exams. ?? Provide a safe environment. Go through the house and remove things that could cause accidents. Make sure household manufacturing accountant and medicines are out of reach. You may need to remove the stove burner knobs and hide matches and lighters to prevent injury. Remove loose rugs to prevent falls. Keep doors and windows tightly closed to prevent wandering or other injuries. If the person smokes, make surecigarettes are always put out. ?? Keep the person with AD active and awake during the day. Limit how much liquid the person drinksin the evening. This may help him or her sleep through the night. Make sure that the person goes tobed at the same time every night. ?? Use short words or sentences when speaking to the person with AD. Call the person by name and speak slowly, clearly, and calmly. Use short words and sentences. Use the same words if you have to repeat yourself. Do not ask too many questions. Do not argue with the person. ?? Create a bathroom schedule. This may mean reminding the person to urinate every 2-3 hours. Be aware of the person's bowel movement routine and keep it the same. ?? Prevent wandering. New door locks may be needed to keep the person from going outside alone. An alarm system near doors may tell you if the person wanders out. Have the person wear a necklace or bracelet with their name and phone number on it in case they wander away from you and are found by someone else. RESOURCES FOR ADDITIONAL INFORMATION AND SUPPORT Opportunities to participate in research can be found at: trialmatch.alz.org Access TrialMatch online. For additional assistance, email or call 389.891.3624 (press 1 for clinical trials). ClinicalTrials.gov is a resource provided by the U.S. National Library of Medicine. You can look upclinical trials (research opportunities) online At clinicaltrials.gov Alzheimer's Association [facility]: ; (toll free); http://www.alz.org, The Alzheimer's Association 29/12 Helpline provides reliable information and support to all those who need assistance. Call toll-free anytime day or night at . Caregiver Guide: tips for caregivers of people with Alzheimer's dementia, www.jordy.nih.gov/Alzheimers /Publication/Bwyafn-zdloao-pgikzvezdb-disease/about-guide We highly recommend [facility], [address] [place] [address]. [address], , Occupational Therapists who offers caregiver training, family support, and in home safety assessmentsat no cost. [email or web address] Fanta Coburn R.N. Help Desk Assistant Alzheimer's Association [address] [place] [address] Toll Free: [phone] ext [phone] Email: The best way to reach our team is via My Chart, this is a secure way for us to communicate about your health care. Please call The My Chart Support Desk: [phone] or [phone] to obtain a link. If you prefer to communicate by phone, please call our nurse at [phone], option 4, leave a message, this voicemail is checked several times per day. documented in this encounter Progress Notes * Elana Oliver NP - 08/27/2021 2:00 PM CDT Images from the original note were not included. [facility] RETURN PATIENT VISIT CHIEF COMPLAINT: memory and thinking difficulty HPI: Ms. Valdez is a 81 y.o. lady who comes [facility] the [facility] today accompanied by her daughter who serves as collateral source (CS). The CS sees her couple times weekly. She is in generally good health. She lives with her daughter. DEMENTIA HISTORY FROM PRIOR NOTES: I last saw her 08/14/2020, Alzheimer dementia, onset 2014, Mini Mental State Exam 19, clinical dementia ratin, sum of box scores 6 At today's visit, the CS reports her iron is low and she is getting infusions. She had a hard time making a sandwich today, she can get something that is grab and go. She can still warm up coffee in the microwave. She repeats within minutes, will not remember being here by tonight. She made her ownmenu selection today (from the special). She had forgotten she had already ordered. She needs reminders to bathe. She can dress herself. She needs help picking out clothes. Some stress incontinence. She does say some inappropriate things at times, sexual comments. 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 CS reports the patient was hiding medications, found a stash of about five days of pills. ADLs: She needs prompting to bathe or groom. The memory and thinking problems are consistent and have been slowly progressive. ADDITIONAL SAFETY/CAREGIVING CONCERNS: Is She currently driving? No Are there firearms in the home? No Have there been any recent (in the past 6 months) falls? Fell when coming down steps, tripped and hit the last two steps on her butt, some soreness Mood and Behavior: NPI-Q: Behavioral changes were assessed by administering the NPI-Q to the CS: Depression/apathy: present, takes Ativan for anxiety prescribed by pcp Anxiety: present Trouble sleeping: sleeps well most nights, sleeps late into the morning Agitation/Aggression: no agitation Irritability/lability: absent Disinhibition: present, sexually inappropriate commentary at times Euphoria or Elation: absent Hallucinations: possible hallucinations, daughter hears her talking when in her room Delusions: absent Paranoia: absent Appetite changes: normal she like ice cream, forgets she just ate ice cream Wandering: present, wandered 3-4 times last summer, would take off to walk to the bar, got lost twoblocks from the house Alcohol/substance use: she may drink 2-3 beers Caregiver stress: We discussed resources available through the Alzheimer's Association (support groups, 24 hour help line, education/training, referrals to community resources). Ms. Valdez reports she doesn't know what we are doing here and asked if I needed a kiss. Current Outpatient Medications: ??? amLODIPine (NORVASC) 10 mg tablet, Take 10 mg by mouth daily, Disp: , Rfl: ??? atorvastatin (LIPITOR) 10 mg tablet, Take 10 mg by mouth daily, Disp: , Rfl: ??? citalopram (CeleXA) 10 mg tablet, Take 20 mg by mouth daily, Disp: , Rfl: ??? HYDROcodone-acetaminophen (NORCO) 5-325 mg per tablet, , Disp: , Rfl: 0 ??? iron 18 mg tablet, Take 150 mg by mouth, Disp: , Rfl: ??? levothyroxine (SYNTHROID) 137 mcg tablet, Take by mouth cryptologic linguist before breakfast, Disp: ,Rfl: ??? LORAZEPAM ORAL, Take by mouth, Disp: , Rfl: ??? medical cannabis each, 2.5 Doses as needed, Disp: , Rfl: ??? omeprazole (PriLOSEC) 20 mg capsule, Take 20 mg by mouth daily, Disp: , Rfl: ??? sennosides (SENOKOT ORAL), Take by mouth Thu, Disp: , Rfl: No Known Allergies Patient Active Problem List Diagnosis ??? Atherosclerosis of both carotid arteries ??? Essential (primary) hypertension ??? Hyperlipidemia ??? Chronic low back pain ??? Hypothyroid ??? Memory changes ??? Major depressive disorder History reviewed. No pertinent past medical history. Past Surgical History: Procedure Laterality Date ??? CAROTID ENDARTERECTOMY Right 2016 ??? LUMBAR LAMINECTOMY 2012 Family History Problem Relation Age of Onset ??? Liver disease Father Family history of liver disease - (Added by TW Conv) ??? Cancer Mother Family history of malignant neoplasm - (Added by TW Conv) Personal History: Alcohol/substance use: Yes Caregivers/support: Today we discussed resources and support for patients and families dealing witha dementia diagnosis. Help Desk Assistant Maricruz Coburn from the Alzheimer's Association. [facility]. ROS Per HPI, all other systems negative. BP 103/47 (BP Location: Left arm, Patient Position: Sitting) Pulse 97 Temp 36.2 ??C (97.1 ??F) (Temporal) Ht 163.8 cm (5' 4.5 ) Wt 78.9 kg (174 lb) SpO2 94% BMI 29.41 kg/m?? Medical Records Review: Reviewed [facility] notes and prior Neuropsychiatric Testing Physical Exam: There were no orthostatic complaints. General physical examination: General: No acute distress. Cardiovascular: regular rate and rhythm without murmur. No carotid bruits were auscultated. Pulmonary: no increased respiratory effort Skin: no visible rashes or lesions Psychiatric: calm and cooperative Neurological exam: Cranial Nerves II-XII: Pupils were equal, round and reactive to light. Extra ocular movements were full with normal smooth pursuit . Facial sensation was intact in all three divisions of the trigeminal nerve. Facial movement was symmetric. Hearing was intact. Palate elevation was symmetric. Shoulder shrug symetric. Tongue protrusion was midline. Motor exam revealed normal bulk, tone and strength throughout. Fine finger movements were symmetric. There was no pronator drift. Zjuxvj-ttba-zpezav testing was normal. No tremor or bradykinesia was detected. Reflexes were symmetric at the biceps and knees. Gait was slow, decreased arm swing, decreased step height and stride. She walked without teodoro tance She was fluent throughout the interview and examination. She had good insight into why she had [facility]. NEUROBEHAVIORAL TESTING REPORT [facility] Neurobehavioral Status Exam Results 08/01/2019 08/14/2020 08/27/2021 Repository ICF signed? No No No Verbal Fluency Total Score (No Data) 12 7 Hillrose Naming (15 item) Total Score 13 13 11 MMSE Score 21 19 12 Word List Memory Task 6 7 (No Data) Word List Recall 0 0 (No Data) Short Blessed Total Score 18 21 10 Logical Memory Total Score 3 1 (No Data) Trails A - Seconds to complete 100 129 152 Trails A - Errors 1 0 0 Trails B - Seconds to complete (No Data) (No Data) (No Data) Total Score (out of 90) (No Data) (No Data) (No Data) On formal neurobehavioral testing, which took from 9722-8690 , scores were in the moderately impaired range on tests of semantic memory (Hillrose Naming, verbal fluency). Scores were in the mild to moderately impaired range on tests of episodic memory (Word List Memory Task ,Word List Recall, Logical Memory). Scores were in the mildly impaired range on tests of speeded psychomotor performance (Trailmaking). On more global tests, MMSE was Mini-Mental Total Score ((out of 30): 12 and Short Blessed was ShortBlessed Total Score: 10 (10/10). She was correct on 0/3 memory items on the MMSE and on 0/5 on the Short Blessed. Mini-Mental Total Score ((out of 30): 12These findings are consistent with moderately impaired. She was able to draw a clock. GDS (Geriatric Depression Screen) was administered today, this was reviewed in the psychometric package- She endorsed 0 items on the GDS. My interpretation and reporting of these results took 15 minutes. I reviewed the testing with the CS (CS'S) and patient and compared prior testing scores. Clinical Dementia Rating: MDC CDR/DIAGNOSIS NEW 08/01/2019 08/14/2020 08/27/2021 Repository ICF signed? No No No Memory 1 1 1 Orientation 1 1 2 Judgement & Problem Solving 1 1 2 Community Affairs 1 1 1 Home & Hobbies 1 1 1 Personal Care 1 1 1 Global Score 1 1 1 Sum of Boxes 6 6 8 Year of Onset 2014 2014 2014 Alert for Potential Transmissible Disorders No No No AD Dementia Alzheimer Disease Dementia Alzheimer Disease Dementia Alzheimer Disease Dementia Mood disorder (any type) - Active Remote ASSESSMENT Ms. Valdez is a 81 y.o. lady with a history of slowly progressive cognitive decline c/w Alzheimerdementia. She lives with her daughter in [facility]. She would benefit from more help at home. CS met with our Help Desk Assistant Maricruz Coburn from the Alzheimer's Association today for resources and support. There has been a decline on Neuropsychiatric Testing and CS report. Daughter had questions today about stages of Alzheimer dementia. Daughter interested in a pre hospice program for her mother, she would like to limit medications. She does have some disinhibitions. The patient did not want any medications. Ms. Valdez has moderate dementia and is expected to have limited decision making capacity. PLAN 1. Late onset Alzheimer's disease without behavioral disturbance (HCC) Did not tolerate donepezil/Aricept, will hold off on Namenda/memantine for now, patient and daughter leaning toward not interested in a trial. We recommend medical ID No orders of the defined types were placed in this encounter. My total encounter time on 08/27/2021 was 55 minutes which was spent in the activities documented inthe note. This includes time spent prior to the visit and after the visit in direct care of the patient. This time does not include time spent in any separately reportable services. More detailed plan/patient education from AVS printed for patient: Patient Instructions For Ms. Patricia Valdez (: 1940) [facility], Department of Neurology Clinic (Nurse Fine Grader, Mandie Vega) Provider today: Elana Oliver Nurse Practitioner FEEDBACK/DIAGNOSTIC ISSUES REGARDING BRAIN HEALTH Thank you for coming to the [facility] today. We appreciate this opportunity to participate in your care. We have reviewed the concerns about your memory and thinking. Diagnosis We think the changes you and your family have observed in your memory and thinking are most likely caused by: Alzheimer's dementia, mild to moderate impairment. We recommend you get an ID Bracelet: Unremovable Alzheimer's & Dementia Medical ID Bracelet Set with FREE ID Tag and Engraving. Unremovable clasp requires 2-hands to open for safe return of wandering memory impaired elderly men and women. All custom sized WaterWear Bracelets?? come in stainless steel. Call [phone]. Https://www .[employer]store/alzheimers Medications: No changes were made in your medications today Additional Recommendations: Alzheimer's Dementia Alzheimer's dementia (AD) is a chronic, progressive condition that affects the brain. It causes a gradual loss of memory and higher intellectual functions.??A person with AD may have trouble recognizing familiar people and places, or knowing what day it is. The person???s memory, judgment, and decision-making may also be affected. In severe cases, the person may not respond when someone talks to him or her. AD is the most common form of dementia. Doctors don???t fully understand what causes AD. It has no cure. But medicines can treat some of the symptoms. Common symptoms include the following: ?? Mild AD: Early AD symptoms may be minor and last from 1 to 3 years. ?? Memory loss: Remembering what happened years ago, but unable to remember things from yesterday or forgetting the names of common things or people you know ?? Confusion about what month or season it is ?? Forgetting to brush your teeth or comb your hair ?? Difficulty taking care of your home or finances or difficulty making decisions ?? Loss of interest in your usual activities ?? Feeling depressed, angry, or confused about the changes you notice ?? Moderate AD: ?? Problems choosing what clothes to wear, doing simple jobs, or caring for your self ?? Unable to recognize people familiar to you ?? Difficulty finding words to say what you mean, trouble talking in normal sentences, or speech that is difficult to understand ?? Feeling anxious, restless, and agitated at night and seeming depressed or worried ?? Difficulty controlling emotions and becoming loud, violent, and hard to control ?? Becoming confused and wandering off or pacing ?? Unable to plan and follow through with activities ?? Thinking something is true even though it is not, seeing things that are not actually there, or inability to control when you urinate ?? Severe AD: ?? Complete loss of memory ?? Complete loss of speech ?? Loss of bladder and bowel control ?? Finding it very difficult to walk ?? Becoming angry and out of control or aggressive and destroying things ?? Unable to care for yourself and needing someone to take care of you Care for someone who has AD: ?? Keep activities the same from day to day. People with AD do best with daily routines. Take breaks often. Save difficult activities for when the person seems the most alert. Choose activities that the person is interested in doing. Help the person get started and try to break difficult activitiesinto small steps. ?? Keep mealtimes at the same time each day. It is best to limit food choices. Eating patterns may change in people with AD. It may help to have the person eat small meals and snacks. Ask healthcare providers about giving vitamins if you do not think the person is eating enough. ?? Get regular exercise. Regular exercise may help decrease depression and anxiety and improve sleep. Walking is a good exercise for people with AD. Check local senior centers for information about group exercise activities. ?? Learn to recognize pain or discomfort. Noisy breathing or rigid body movements may be a sign of pain. A sad or scared look may also mean the person is having discomfort. The person may also constantly make certain noises when he or she is in pain. ?? Provide personal care. Make sure to check the water temperature of the bath or shower so they donot burn themselves. It may help to choose and lay out clothes each night for them to wear the nextday. Make sure to brush the person's teeth or dentures daily. Do not forget to take the person to the dentist for exams. ?? Provide a safe environment. Go through the house and remove things that could cause accidents. Make sure household manufacturing accountant and medicines are out of reach. You may need to remove the stove burner knobs and hide matches and lighters to prevent injury. Remove loose rugs to prevent falls. Keep doors and windows tightly closed to prevent wandering or other injuries. If the person smokes, make surecigarettes are always put out. ?? Keep the person with AD active and awake during the day. Limit how much liquid the person drinksin the evening. This may help him or her sleep through the night. Make sure that the person goes tobed at the same time every night. ?? Use short words or sentences when speaking to the person with AD. Call the person by name and speak slowly, clearly, and calmly. Use short words and sentences. Use the same words if you have to repeat yourself. Do not ask too many questions. Do not argue with the person. ?? Create a bathroom schedule. This may mean reminding the person to urinate every 2-3 hours. Be aware of the person's bowel movement routine and keep it the same. ?? Prevent wandering. New door locks may be needed to keep the person from going outside alone. An alarm system near doors may tell you if the person wanders out. Have the person wear a necklace or bracelet with their name and phone number on it in case they wander away from you and are found by someone else. RESOURCES FOR ADDITIONAL INFORMATION AND SUPPORT Opportunities to participate in research can be found at: trialmatch.alz.org Access TrialMatch online. For additional assistance, email or call 181.753.0840 (press 1 for clinical trials). ClinicalTrials.gov is a resource provided by the U.S. National Library of Medicine. You can look upclinical trials (research opportunities) online At clinicaltrials.gov [facility]: ; (toll free); http://www.alz.org, The [employer] Association 29/12 Helpline provides reliable information and support to all those who need assistance. Call toll-free anytime day or night at . Caregiver Guide: tips for caregivers of people with Alzheimer's dementia, www.jordy.nih.gov/Alzheimers /Publication/Diullm-hpykey-ljuzxmypmz-disease/about-guide We highly recommend [facility], [address] [place] [address]. [id number], , [employer]rapists who offers caregiver training, family support, and in home safety assessmentsat no cost. [email or web address] Fanta Coburn R.N. Help Desk Assistant [employer] [address] [place] [address]. [place] [address] Toll Free: [phone] ext [phone] Email: The best way to reach our team is via My Chart, this is a secure way for us to communicate about your health care. Please call The My Chart Support Desk: [phone] or [phone] to obtain a link. If you prefer to communicate by phone, please call our nurse at [phone], option 4, leave a message, this voicemail is checked several times per day. 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 LORAZEPAM ORAL Take 0.5 mg by mouth HYDROcodone-aceta minophen (NORCO) 5-325 mg per tablet 0 08/06/2021 08/27/2022 sennosides (SENOKOT ORAL) Take by mouth Thu08/27/2022 cannabidiol, CBD, (medical cannabis) each 2.5 Doses as needed 08/27/2022 added in this encounter Care Teams Special Events Coordinator Relationship Specialty Start Date End Date Cedric Nguyen MD [address] [id number] PCP - General 09/17/16 documented as of this encounter
--- OUTSIDE RECORDS SUMMARY | 2024-05-24 20:20 | XMS_ITS | Encounter Summary ---
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) (Primary Dx) Social History Tobacco Use Types Packs/Day Years Used Date Smoking Tobacco: Never Tobacco Cessation:Counseling Given: Not Answered Comments Unknown Sex and Gender Information Value Date Recorded Sex Assigned at Not on file Legal Sex Female 8:04 AM CDT Gender Identity Not on file Sexual Orientation Not on file documented as of this encounter Last Filed Vital Signs Vital Sign Reading Time Taken Comments Blood Pressure 145/64 09/02/2023 1:10 PM CDT Pulse 77 09/02/2023 1:10 PM CDT Temperature 36.6 ??C (97.8 ??F) 09/02/2023 1:10 PM CD T Respiratory Rate - - Oxygen Saturation 93% 09/02/2023 1:10 PM CDT Inhaled Oxygen Concentration - - Weight 95.7 kg (211 lb) 09/02/2023 1:10 PM CDT Height 163.8 cm (5' 4.5 ) 09/02/2023 1:10 PM CDT Body Mass Index 35.66 09/02/2023 1:10 PM CDT documented in this encounter Patient Instructions * Patient Instructions* Chad Boudreaux NP - 09/02/2023 1:45 PM CDT [facility] After Visit Summary [facility], Department of Neurology Clinic PIERRE López (Nurse Practitioner) Thank you for coming to the [facility]. We appreciate this opportunity to participatein your care. We have reviewed the concerns about your memory and thinking. Memory and thinking test scores today: MMSE (Mini Mental Status Exam): Mini-Mental Total Score ((out of 30): (R) A perfect score on this test is 30. A score of of between 27-30 is considered normal. A score of 24-26 is considered mildly impaired. A score of 20-23 is impaired. Scores below 20 show moderate impairment and 10 or below shows severe impairment. Diagnosis: We think that the changes you and your family have observed in your memory and thinking are most likely caused by: Alzheimer's dementia Medications: We recommend you take quetiapine/Seroquel for agitation. Common side effects are fatigue, dry mouth, dizziness, low blood pressure, constipation, abnormal movements, or tremor (let our office know ifyou have any of these side effects). Additional Recommendations Nutrition: We recommend that you eat a balanced diet, including fruits, vegetables, and regular servings of fish daily. Alcohol intake: We recommend that you limit alcohol intake to no more than 7 drinks per week and nomore than 3 drinks in one day. A drink is one 12-ounce can or bottle of regular beer, dc, or wine cooler, or one 5 ounce glass of wine, or one 1.5 ounce shot of liquor. Activity: We recommend that you engage in daily physical activity such as walking or stretching. Ifyou have not already done so, you should consider developing a regular exercise regimen. We recommend you do activities that stimulate your mind, such as puzzles, books, working on hobbies, visiting with friends and relatives, or engaging in other social and community activities. Sleep: Sleep can have a big effect on your memory and thinking. Make sure you get a good night's sleep every night. If you have trouble sleeping, make sure you follow these rules for basic sleep hygiene: - Get up at the same time every morning, regardless of how little or how poorly you sleep. - No napping during the day time. If naps are really necessary, nap for less than an hour and only nap before 3 PM. - Have a regular calm down time before going to bed. Do not work right up until bedtime. - Have a regular exercise schedule, as exercise helps consolidate sleep. - No caffeine for six hours before bedtime. - No watching television or using the computer in your bedroom or at bedtime. - If you are not able to fall asleep after 20 minutes, get out of bed and do a relaxing activity for a few minutes. Driving: joodriving: We support your decision to stop driving. Safety: No safety concerns were discussed today. Legal: No legal concerns were discussed today. You may wish to consult an document review attorney regarding these matters. RESEARCH STUDIES Many people have problems with their memory so it is very important that we find better ways to diagnose and treat people with memory disorders. You can help by participating in research studies. There are many different types of research studies. You and your family and/or caregivers can decide ifyou want to participate in research and what type of research study would be best for you. As a patient at the [facility] [place], you or your caregivers may be asked to sign a consentform so that some information about you may be included in the [facility] Data Repository. This is a list of people who have been seen in our clinic and can be used to help researchers at [facility] find people who might be interested in participating in research studies. If you signed this form, you might be contacted by some of these researchers to see if you might be interested in participating in a research project. You and family can decide if you want to hear moreabout these projects and if you would like to participate. Signing the [facility] Data Repository consent form does not mean that you are agreeing to be in a research project; it only means the investigators can contact you to see if you might be interested in research projects. If you are interested in participating in research studies, consider the following opportunities: The Memory and Aging Project (MAP) is a long-term study of memory and thinking function in people as they age. Participation in MAP includes annual visits for assessment of memory and thinking abilities, annual pencil and paper testing of memory abilities, and infrequent brain scans and spinal taps. A friend or family member who knows you well must be available to provide information at the annual assessment. We will ask the waste reduction coordinator to contact you with more information. If you do not hear from the MAP team you may consider calling [phone]. You should mention that you have seen one of the physicians at the [facility]. Patients and their care partners (age 50 and up) are invited to join the APT Webstudy, a national study sponsored by the National [place] of Aging, one of the National Institutes of Health. The APTWebstudy is an online study where you can learn more about dementia and brain health. Participants take memory tests and track their thinking online; you can use a computer, tablet or smartphone. As part of the APT webstudy, you may learn about other research opportunities, including clinical trials that may help us prevent Alzheimer disease and other dementias. To lean more, go online to https://www.aptwebstudy.org/welcome. Additional Resources and Support: Alzheimer's Association of [place] Chapter: ; (toll free); http://www.alz.org, The Alzheimer's Association 29/12 Helpline provides reliable information and support to all those who need assistance. Call toll-free anytime day or night at . Memory Assisted Solution: [place] is to extend and improve quality time at home for people living with dementia and their care partners, or Memorycarehs.org, They provide family child care support, education and skills. Memory Assisted Solutions will make it easier for you to enhance your skills and adapt your home setting to meet the ever-changing demands of caregiving. Fanta Coburn R.N. [employer] [address] [place] [address] Toll Free: [phone] ext [phone] Email: The best way to reach our team is via My Chart, this is a secure way for us to communicate about your health care. Please call The My Chart Support Desk: [phone] for help with My Chart, or [phone] to obtain a link for access. Future Appointments Date Time Provider Department Center 03/09/2024 1:00 PM Chad Boudreaux NP [facility] We offer in person and telemedicine (virtual) visits. Please let us know your preference when scheduling. documented in this encounter Ordered Prescriptions Prescription Sig Dispense Quantity Refills Last Filled Start Date End Date QUEtiapine (SEROquel) 25 mg tabletIndications: Generalized Anxiety Disorder Take 1 tablet (25 mg total) by mouth nightly 30 tablet 09/02/2023 documented in this encounter Progress Notes * Chad Boudreaux NP - 09/02/2023 1:45 PM CDT Images from the original note were not included. [facility] OFFICE VISIT PIERRE López (Nurse Practitioner) [facility] Department of Neurology Patient Name: PATRICIA HAMLIN Medical Record Number (MRN): [id number] Date of (): 1940 Encounter Date: 09/02/23 Primary Care Practitioner: Cedric Nguyen MD Chief Complaint: Memory and thinking difficulty HISTORY OF PRESENT ILLNESS: Ms. Hamlin is a 83 y.o. lady who comes to the [facility] today for further evaluation of memory and thinking problems. She was last seen in the [facility] by nurse practitioner, Elana Oliver, on 08/27/22. There have not been hospitalizations or major medical illnesses since the last visit. She is in generally good health. Collateral Source (CS): Daughter, Laura, serves as the collateral source/sources (CS/CS's). The CS typically sees the patient a couple times per week. Dementia History (portions may be copied and pasted from prior notes): IOV with Dr. Jackson in July 2019 with 4 year history of memory and thinking problems. 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 She began to repeatherself more often, and had more difficulty remembering events. Was living alone but son moved in. Diagnosis Alzheimer's disease. Started on donepezil/Aricept. MMSE 21 CDR 1 SOB 6. Follow- up with Elana Oliver in August 2020. Living with daughter now. Daughter taking care of all meals. Daughter holds POA for healthcare decisions as well as financial. May be sexually inappropriate. MMSE 19 CDR 1 SOB 6. Visit with Elana in August 2022. Lives in half-way. Drinks 2-3 beers a day. Cannot makemenu selection. Incontinent of urine. PCP started her on risperidone. MMSE 16. Today's Visit: CS thinks memory and thinking problems have declined since the last visit. She continues to live inthe half-way and has a phone. She is calling her daughter repetitively telling her she wants togo home. She is threatening to commit suicide but CS thinks this is just to scare the CS. Her PCP recently discontinued lorazepam/Ativan. She did recently have a fall about a month ago where she broke her nose. No surgery or intervention was needed. Her ability to recall recent events is poor. She has trouble remembering major details of an event. She requires assistance managing appointments. Medications are managed by the half-way. She will repeat sentences within minutes. She does misplace items. She will rarely remember the day of the week. She does have difficulty with time relationships. She can find her way about the half-way. She does wander. There was a recent instance where she left the half-way and the nurses had to go find her. She have trouble handling a small emergency as well as understanding explanations. Social interactions are, for the most part, appropriate. She gets more agitated. She participates in the activities within the half-way (i.e. bingo, music, art). CS takes patient out a couple of times a week. She drinks at most, 2 beers, a night. Sheis able to use her phone well. She makes her own bed. She reads magazines and watches television. She has a couple of friends at the half-way. She is able to take care of herself. She needs prompting to bathe. She never liked to shower. Otherwise, she can groom herself. She does not have difficulty with understanding visual images or spatial relationships (trouble reading, judging distances, writing). She does not have difficulty with language skills. She sleeps well. In regards to mood (depression, apathy, anxiety, agitation/aggression, hallucinations, delusions?):CS thinks patient's depression and anxiety are worsening. No hallucinations or delusions recently. There was a time in the past where she may have had them but not currently. Main problem is the agitation and aggression. Medical Records Review: I reviewed [facility] notes and prior neuropsychometric testing scores. REVIEW OF SYSTEMS Review of Systems Constitutional: Negative. HENT: Negative. Eyes: Negative. Respiratory: Negative. Cardiovascular: Negative. Gastrointestinal: Negative. Genitourinary: Negative. Musculoskeletal: Negative. Skin: Negative. Neurological: Memory loss Endo/Heme/Allergies: Negative. Psychiatric/Behavioral: Positive for depression. 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) ALLERGIES No Known Allergies MEDICATIONS Current Outpatient Medications: acetaminophen (TYLENOL) 325 mg tablet, Take 2 tablets (650 mg total) by mouth every 6 (six) hours as needed for pain, Disp: , Rfl: aluminum-magnesium hydroxide-simethicone (MAALOX) suspension 200-200-20 mg/5 mL, Take by mouth, Disp: , Rfl: amLODIPine (NORVASC) 10 mg tablet, Take 1 tablet (10 mg total) by mouth daily, Disp: , Rfl: atorvastatin (LIPITOR) 10 mg tablet, Take 1 tablet (10 mg total) by mouth daily, Disp: , Rfl: citalopram (CeleXA) 10 mg tablet, Take 2 tablets (20 mg total) by mouth daily, Disp: , Rfl: cyanocobalamin (Vitamin B-12) 1,000 mcg tablet, Take 1 tablet (1,000 mcg total) by mouth daily, Disp: , Rfl: docusate sodium (COLACE) 100 mg capsule, Take 1 capsule (100 mg total) by mouth 2 (two) times a day, Disp: , Rfl: ferrous sulfate 325 mg (65 mg of elemental iron) tablet, Take 1 tablet (325 mg total) by mouth 2 (two) times a day, Disp: , Rfl: glimepiride (AMARYL) 1 mg tablet, Take 1 tablet (1 mg total) by mouth daily before breakfast, Disp:, Rfl: HYDROcodone-acetaminophen (NORCO) 5-325 mg per tablet, , Disp: , Rfl: 0 levothyroxine (SYNTHROID) 137 mcg tablet, Take by mouth bilingual speech language pathologist before breakfast, Disp: , Rfl: LORAZEPAM ORAL, Take 0.5 mg by mouth, Disp: , Rfl: omeprazole (PriLOSEC) 20 mg capsule, Take 1 capsule (20 mg total) by mouth daily, Disp: , Rfl: pioglitazone (ACTOS) 30 mg tablet, Take 1 tablet (30 mg total) by mouth daily, Disp: , Rfl: risperiDONE (RisperDAL) 0.25 mg tablet, , Disp: , Rfl: 12 QUEtiapine (SEROquel) 25 mg tablet, Take 1 tablet (25 mg total) by mouth nightly, Disp: 30 tablet, Rfl: 0 Family History Problem Relation Age of Onset Liver disease Father Family history of liver disease - (Added by TW Conv) Cancer Mother Family history of malignant neoplasm - (Added by TW Conv) Social History Tobacco Use Smoking status: Never Smokeless tobacco: None Substance and Sexual Activity Drug use: None Sexual activity: None Alcohol Use: Not on file PHYSICAL EXAM BP 145/64 (BP Location: Left arm, Patient Position: Sitting) Pulse 77 Temp 36.6 ??C (97.8 ??F) (Temporal) Ht 163.8 cm (5' 4.5 ) Wt 95.7 kg (211 lb) SpO2 93% BMI 35.66 kg/m?? Wt Readings from Last 6 Encounters: 09/02/23 95.7 kg (211 lb) 08/27/22 93.4 kg (206 lb) 08/27/21 78.9 kg (174 lb) 08/14/20 79.6 kg (175 lb 8 oz) 08/01/19 80.8 kg (178 lb 3.2 oz) 09/15/16 75.4 kg (166 lb 4 oz) General Assessment There were no orthostatic complaints. Cranial Nerves Visual smith testing intact. Pupils were equal, round and reactive to light. Extraocular movementswere normal with smooth pursuit. Facial sensation was intact in all three divisions of the trigeminal nerve. Facial movement was symmetric. Hearing was intact. Palate elevation was symmetric. Shoulder shrug and head turning were symmetric. Tongue protrusion was midline. Motor Motor exam revealed normal bulk, normal tone, and 5/5 strength throughout. Fine finger movements were normal . There was no pronator drift. Tremor was absent, bradykinesia was absent. Sensation Sensation was intact to light touch. Coordination Able to extend arms out with eyes closed and touch nose. Reflexes Reflexes were symmetric at the biceps, brachioradialis and knees. Gait Gait was normal. She was fluent throughout the interview and examination. Neuropsychiatric Testing: The fibre composite technician spent from 1323 to 1332 on neuropsychological test administration and scoring. Testing consisted of the Short Blessed and the Logical Memory test. Upon starting the MMSE, the patient became agitated and walked out on sisi. GDS (Geriatric Depression Screen) was administered today. She endorsed 0 items on the GDS. My interpretation and reporting of these results took 2 minutes. I reviewed the testing with the CS(CS'S) and patient and compared prior testing scores. 08/01/2019 7:00 AM 08/14/2020 2:00 PM 08/27/2021 1:58 PM 08/27/2022 1:05 PM 09/02/2023 7:00 AM [facility] Neurobehavioral Status Exam Results Repository ICF signed? No No No Yes Yes Verbal Fluency Total Score 12 7 6 Braxton Naming (15 item) Total Score 13 13 11 MMSE Score 21 19 12 16 Word List Memory Task 6 7 Word List Recall 0 0 Short Blessed Total Score 18 21 10 26 Logical Memory Total Score 3 1 1 0 Trails A - Seconds to complete 100 129 152 Trails A - Errors 1 0 0 Clinical Dementia Ratin08/01/2019 7:00 AM 08/14/2020 2:00 PM 08/27/2021 1:58 PM 08/27/2022 1:05 PM 09/02/2023 7:00 AM [facility] CDR/DIAGNOSIS NEW Repository ICF signed? No No No Yes Yes Memory 1 1 1 2 Orientation 1 1 2 1 Judgement & Problem Solving 1 1 2 2 Community Affairs 1 1 1 2 Home & Hobbies 1 1 1 1 Personal Care 1 1 1 1 Global Score 1 1 1 1 Sum of Boxes 6 6 8 9 Year of Onset 2014 2014 2014 Alert for Potential Transmissible Disorders No No No AD Dementia Alzheimer Disease Dementia Alzheimer Disease Dementia Alzheimer Disease Dementia Mood disorder (any type) Active Remote ASSESSMENT/PLAN: Ms. Hamlin is a 83 y.o. lady with a history of slowly progressive cognitive changes, consistent with a clinical diagnosis of Alzheimer's dementia. 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 PCP discontinued alprazolam/Xanax recently. Suggested patient may benefit from a psychiatrist for better management of medications. CS and patient declined at this time. Follow-up in 6 months or sooner if need be. Other orders - QUEtiapine (SEROquel) 25 mg tablet; Take 1 tablet (25 mg total) by mouth nightly My total encounter time on 09/02/2023 was 40 minutes which was spent in the activities documented inthe note. This includes time spent prior to the visit and after the visit in direct care of the patient. This time does not include time spent in any separately reportable services. PIERRE López [facility] [address] [place] [address], [address] [place]. [address] Patient Instructions [facility] After Visit Summary [facility], Department of Neurology Clinic PIERRE López (Nurse Practitioner) Thank you for coming to the [facility]. We appreciate this opportunity to participatein your care. We have reviewed the concerns about your memory and thinking. Memory and thinking test scores today: MMSE (Mini Mental Status Exam): Mini-Mental Total Score ((out of 30): (R) A perfect score on this test is 30. A score of of between 27-30 is considered normal. A score of 24-26 is considered mildly impaired. A score of 20-23 is impaired. Scores below 20 show moderate impairment and 10 or below shows severe impairment. Diagnosis: We think that the changes you and your family have observed in your memory and thinking are most likely caused by: Alzheimer's dementia Medications: We recommend you take quetiapine/Seroquel for agitation. Common side effects are fatigue, dry mouth, dizziness, low blood pressure, constipation, abnormal movements, or tremor (let our office know ifyou have any of these side effects). Additional Recommendations Nutrition: We recommend that you eat a balanced diet, including fruits, vegetables, and regular servings of fish daily. Alcohol intake: We recommend that you limit alcohol intake to no more than 7 drinks per week and nomore than 3 drinks in one day. A drink is one 12-ounce can or bottle of regular beer, dc, or wine cooler, or one 5 ounce glass of wine, or one 1.5 ounce shot of liquor. Activity: We recommend that you engage in daily physical activity such as walking or stretching. Ifyou have not already done so, you should consider developing a regular exercise regimen. We recommend you do activities that stimulate your mind, such as puzzles, books, working on hobbies, visiting with friends and relatives, or engaging in other social and community activities. Sleep: Sleep can have a big effect on your memory and thinking. Make sure you get a good night's sleep every night. If you have trouble sleeping, make sure you follow these rules for basic sleep hygiene: - Get up at the same time every morning, regardless of how little or how poorly you sleep. - No napping during the day time. If naps are really necessary, nap for less than an hour and only nap before 3 PM. - Have a regular calm down time before going to bed. Do not work right up until bedtime. - Have a regular exercise schedule, as exercise helps consolidate sleep. - No caffeine for six hours before bedtime. - No watching television or using the computer in your bedroom or at bedtime. - If you are not able to fall asleep after 20 minutes, get out of bed and do a relaxing activity for a few minutes. Driving: joodriving: We support your decision to stop driving. Safety: No safety concerns were discussed today. Legal: No legal concerns were discussed today. You may wish to consult an document review attorney regarding these matters. RESEARCH STUDIES Many people have problems with their memory so it is very important that we find better ways to diagnose and treat people with memory disorders. You can help by participating in research studies. There are many different types of research studies. You and your family and/or caregivers can decide ifyou want to participate in research and what type of research study would be best for you. As a patient at the [facility], you or your caregivers may be asked to sign a consentform so that some information about you may be included in the [facility] Data Repository. This is a list of people who have been seen in our clinic and can be used to help researchers at [facility] find people who might be interested in participating in research studies. If you signed this form, you might be contacted by some of these researchers to see if you might be interested in participating in a research project. You and family can decide if you want to hear moreabout these projects and if you would like to participate. Signing the [facility] Data Repository consent form does not mean that you are agreeing to be in a research project; it only means the investigators can contact you to see if you might be interested in research projects. If you are interested in participating in research studies, consider the following opportunities: The Memory and Aging Project (MAP) is a long-term study of memory and thinking function in people as they age. Participation in MAP includes annual visits for assessment of memory and thinking abilities, annual pencil and paper testing of memory abilities, and infrequent brain scans and spinal taps. A friend or family member who knows you well must be available to provide information at the annual assessment. We will ask the waste reduction coordinator to contact you with more information. If you do not hear from the MAP team you may consider calling [phone]. You should mention that you have seen one of the physicians at the [facility]. Patients and their care partners (age 50 and up) are invited to join the APT Webstudy, a national study sponsored by the National [place] [employer], one of the National Institutes of Health. The APTWebstudy is an online study where you can learn more about dementia and brain health. Participants take memory tests and track their thinking online; you can use a computer, tablet or smartphone. As part of the APT webstudy, you may learn about other research opportunities, including clinical trials that may help us prevent Alzheimer disease and other dementias. To lean more, go online to https://www.aptwebstudy.org/welcome. Additional Resources and Support: Alzheimer's Association of [place] Chapter: ; (toll free); http://www.alz.org, The Alzheimer's Association 29/12 Helpline provides reliable information and support to all those who need assistance. Call toll-free anytime day or night at . [facility]: [employer] [employer] is to extend and improve quality time at home for people living with dementia and their care partners, or Memorycarehs.org, They provide family child care support, education and skills. [facility] will make it easier for you to enhance your skills and adapt your home setting to meet the ever-changing demands of caregiving. Fanta Coburn R.N. [employer] [address] [place] [address]. [place] [address] Toll Free: [phone] ext [phone] Email: The best way to reach our team is via My Chart, this is a secure way for us to communicate about your health care. Please call The My Chart Support Desk: [phone] for help with My Chart, or [phone] to obtain a link for access. Future Appointments Date Time Provider Department Center 03/09/2024 1:00 PM Chad Boudreaux NP [facility] We offer in person and telemedicine (virtual) visits. Please let us know your preference when scheduling. documented in this encounter Miscellaneous Notes * Assessment & Plan Note - Chad Boudreaux NP - 09/02/2023 2:05 PM CDTAssociated Problem(s): 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) Initiated quetiapine/Seroquel 25 mg nightly for increased agitation. PCP discontinued alprazolam/Xanax recently. Suggested patient may benefit from a psychiatrist for better management of medications. CS and patient declined at this time. Follow-up in 6 months or sooner if need be. documented in this encounter Plan of Treatment Not on file documented as of this encounter Visit Diagnoses Diagnosis 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)- Primary documented in this encounter Historical Medications * This list may reflect changes made after this encounter. acetaminophen (TYLENOL) 325 mg tablet Take 2 tablets (650 mg total) by mouth every 6 (six) hours as needed for pain aluminum-magnesi um hydroxide-simeth icone (MAALOX) suspension 200-200-20 mg/5 mL Take by mouth docusate sodium (COLACE) 100 mg capsuleIndicatio ns:constipation Take 1 capsule (100 mg total) by mouth 2 (two) times a day glimepiride (AMARYL) 1 mg tabletIndication s:type 2 diabetes mellitus Take 1 tablet (1 mg total) by mouth daily before breakfast cyanocobalamin (Vitamin B-12) 1,000 mcg tabletIndication s:Prevention of Vitamin B12 Deficiency Take 1 tablet (1,000 mcg total) by mouth daily HYDROcodone-acet aminophen (NORCO) 5-325 mg per tablet 0 08/11/2023 4 added in this encounter Care Teams Longitudinal Float Operator Relationship Specialty Start Date End Date Cedric Nguyen MD [address] [place] [address] PCP - General 09/17/16 documented as of this encounter
--- OUTSIDE RECORDS SUMMARY | 2024-05-24 20:20 | XMS_ITS | Encounter Summary ---
Author Organization [facility] Address [address] [place] [address] Phone Care Team Providers Care Automobile Radiator Mechanic Name Role Phone Cedric Nguyen MD Primary Care Provide r Reason for Visit * Reason Comments Follow-up Encounter Details Date Type Department Care Team (Late st Contact Info) Description 08/14/2020 1:15 PM MOTOR RACER Office Visit [facility] [address] 6[address] [place] [address] Elana Oliver NP [address] [place] [address] Late onset Alzheimer's disease without behavioral disturbance (CMS/HCC) (Primary Dx) Social History Tobacco Use Types Packs/Day Years Used Date Smoking Tobacco: Never Comments Unknown Sex and Gender Information Value Date Recorded Sex Assigned at Not on file Legal Sex Female 8:04 AM CDT Gender Identity Not on file Sexual Orientation Not on file documented as of this encounter Last Filed Vital Signs Vital Sign Reading Time Taken Comments Blood Pressure 135/69 08/14/2020 1:14 PM MOTOR RACER Pulse 91 08/14/2020 1:14 PM MOTOR RACER Temperature 35.9 ??C (96.7 ??F) 08/14/2020 1:14 PM CS T Respiratory Rate - - Oxygen Saturation 94% 08/14/2020 1:14 PM MOTOR RACER Inhaled Oxygen Concentration - - Weight 79.6 kg (175 lb 8 oz) 08/14/2020 1:14 PM MOTOR RACER Height 163.8 cm (5' 4.5 ) 08/14/2020 1:14 PM MOTOR RACER Body Mass Index 29.66 08/14/2020 1:14 PM MOTOR RACER documented in this encounter Patient Instructions * Patient Instructions* Elana Oliver, PLASTIC JOINT MAKER - 08/14/2020 1:15 PM MOTOR RACER Images from the original note were not included. [facility] TODAY'S VISIT Provider: SHELBIE Lara (Nurse Practitioner) Thank you for coming to the [facility] today. We appreciate this opportunity to participate in your care. We have reviewed the concerns about your memory and thinking. Diagnosis We think that the changes you and your family have observed in your memory and thinking are most likely caused by: Alzheimer's dementia, mild to moderate impairment. It will be important to re-assess your memory in the future. We can compare your test results in the future to the test results from today so we can get a more accurate picture of how your memory haschanged. Medications: No changes were made in your medications today Additional Recommendations: Nutrition: We recommend that you eat a balanced diet, including fruits and vegetables daily and regular servings of fish. We recommend a heart healthy diet. Activity: We recommend that you engage in daily physical activity such as walking or stretching. Werecommend you do things that stimulate your mind, such as puzzles, books, working on hobbies, visiting with friends and relatives or engaging in other social and community activities. We recommend, Cognitive Stimulation Therapy- [facility]: This is a virtual program based on theprinciples of cognitive stimulation therapy starting in April for individuals with mild to moderate memory loss. Please contact [email or web address] or call [phone]. We discussed the importance of physical activity, we recommend you exercise a minimum of 3-4 times per week, local community centers often offer classes for older adults. Exercise improves blood flowto the brain, boosts energy level and mood, and improves sleep. It???s important that you remain mobile to maintain your independence. Sleep: Sleep can have a big effect on your memory and thinking. Make sure you get a good night's sleep every night. If you have trouble sleeping, make sure you follow these rules for basic sleep hygiene: -Get up at the same time every morning, regardless of how little or how poorly you sleep. -No napping during the day time. If naps are really necessary, nap for less than an hour and only nap before 3 PM. -Have a regular calm down time before going to bed. Do not work right up until bedtime. -Have a regular exercise schedule, as exercise helps consolidate sleep. -No caffeine for 6 hours before bedtime. -No watching T.V. or using the computer in your bedroom or at bedtime. -If you are not able to fall asleep after 20 minutes, get out of bed and do a relaxing activity fora few minutes. -Avoid taking medications like Tylenol PM, or Advil PM, these drugs can make memory and thinking worse. We recommend you do not drink alcohol, if you must drink, we recommend you limit alcohol to one drink per day, where a drink is defined as 12 oz of beer, 5 oz of wine, or 1.5 oz of spirits. Safety concerns: We recommend family oversee medications. Medication planners with alarms are sometimes helpful. We recommend The Medic Alert and Safe Return Program, from The Alzheimer's Association, please call [phone], or you can register online [email or web address]. 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 Legal: No legal concerns were discussed today. RESOURCES FOR ADDITIONAL INFORMATION AND SUPPORT Opportunities to participate in research can be found at: trialmatch.alz.org Access TrialMatch online. For additional assistance, email or call [phone] (press 1 for clinical trials). ClinicalTrials.gov is a resource provided by the U.S. National Library of Medicine. You can look upclinical trials (research opportunities) online At clinicaltrials.gov Alzheimer's Association [facility] Chapter: ; (toll free); http://www.alz.org, The Alzheimer's Association 29/12 Helpline provides reliable information and support to all those who need assistance. Call toll-free anytime day or night at . Caregiver Guide: tips for caregivers of people with Alzheimer's dementia, www.jordy.nih.gov/Alzheimers /Publication/Walysf-fnkiik-slvboyfhbd-disease/about-guide [facility], [address] [place]. [address], , Occupational Therapists who offers caregiver training, family support, and in home safety assessments at no cost. Memorycarehs.org [facility] on Aging (serving [facility]) http://[facility]/government/hslaaa.html [facility] [email or web address] The best way to reach our team is via My Chart, this is a secure way for us to communicate about your health care. Please call The My Chart Support Desk: [phone] or [phone] to obtain a link. If you prefer to communicate by phone, please call our nurse at [phone], option 4, leave a message, this voicemail is checked several times per day. If you need to contact our Jig Grinder, please contact Maricruz Coburn [phone]. R RACER R RACER R RACER documented in this encounter Progress Notes * Elana Oliver NP - 08/14/2020 1:15 PM CST Images from the original note were not included. [facility] OFFICE VISIT SHELBEI Lara (Nurse Practitioner) [facility] Department of Neurology Patient Name: PATRICIA HAMLIN Medical Record Number (MRN): [id number] Date of (): 1940 Encounter Date: 08/14/2020 Referring MD: Dr. Cedric Nguyen MD Primary Care Practitioner: Cedric Montiel MD CHIEF COMPLAINT Memory and thinking difficulty Collateral Source: daughter, Laura Park serves as the collateral source/sources (CS/CS's). The CS typically sees the patient a couple times per week. HISTORY OF PRESENT ILLNESS Ms. Hamlin is a 80 y.o. lady who comes to the [facility] today for further evaluation of memory and thinking problems. She is in generally good health. Dementia History, (portions may be copied and pasted from prior notes): She was last seen by Dr. Jackson, 08/01/2019, she is new to me. She retired in 2016 d/t memory problems, Mini Mental State Exam 21, clinical dementia ratin, sum of box scores 6, diagnosis: Alzheimer dementia, recommended she start donepezil/Aricept and continue citalopram. TODAY'S VISIT: She is now living with her daughter. Daughter is taking care of all her meals. She can still dress herself. She likes to lay in bed and watch TV. She was more nervous on donepezil/Aricept, folding tissues all the time, fidgeting, didn't feel right. She doesn't remember where things are at home. She is fine to stay alone. She has put a copper cup in the microwave. She goes in the kitchen and gets a snack. She calls from the bedroom. Daughter is POA for healthcare and finances. Evelia just and at the , she didn't know people she should have known. She eats, has gained some weight and will eat again. She does not have any trouble with language. She sometimes says inappropriate things, she is sexually inappropriate, and has always been a little this way, but now is over the top with that. She has lost some filter. The memory and thinking problems are consistent and have been slowly progressive. Mood and Behavior: NPI-Q: Behavioral changes were assessed by administering the NPI-Q to the CS: Depression/apathy: present at times, daughter is using medical marajauna Anxiety: absent Trouble sleeping: sleeps well most nights , sleeps till noon some days, sleeps longer Agitation/Aggression: no agitation Irritability/lability: absent Disinhibition: absent Euphoria or Elation: absent Hallucinations: no hallucinations Delusions: absent Paranoia: absent Appetite changes: normal Wandering: absent ACTIVE PROBLEMS Patient Active Problem List Diagnosis ??? Atherosclerosis of both carotid arteries ??? Essential (primary) hypertension ??? Hyperlipidemia ??? Chronic low back pain ??? Hypothyroid ??? Memory changes ??? Major depressive disorder PAST MEDICAL HISTORY History reviewed. No pertinent past medical history. Past Surgical History: Procedure Laterality Date ??? CAROTID ENDARTERECTOMY Right 2017 ??? LUMBAR LAMINECTOMY 2013 ALLERGIES No Known Allergies MEDICATIONS Current Outpatient Medications: ??? amLODIPine (NORVASC) 10 mg tablet, Take 10 mg by mouth daily, Disp: , Rfl: ??? ascorbic acid (vitamin C) 100 mg tablet, Take 100 mg by mouth daily, Disp: , Rfl: ??? atorvastatin (LIPITOR) 10 mg tablet, Take 10 mg by mouth daily, Disp: , Rfl: ??? citalopram (CeleXA) 10 mg tablet, Take 10 mg by mouth daily, Disp: , Rfl: ??? hydroCHLOROthiazide (HYDRODIURIL) 25 mg tablet, Take 25 mg by mouth daily, Disp: , Rfl: ??? iron 18 mg tablet, Take by mouth, Disp: , Rfl: ??? levothyroxine (SYNTHROID) 112 mcg tablet, Take 112 mcg by mouth underground miner before breakfast,Disp: , Rfl: ??? omeprazole (PriLOSEC) 20 mg capsule, Take 20 mg by mouth daily, Disp: , Rfl: ??? hkagiwbyccsr-Gp-yvdv-minerals tablet, Take by mouth, Disp: , Rfl: FAMILY & SOCIAL HISTORY Family History Problem Relation Age of Onset ??? Liver disease Father Family history of liver disease - (Added by TW Conv) ??? Cancer Mother Family history of malignant neoplasm - (Added by TW Conv) Social History Socioeconomic History ??? Marital status: Single Spouse name: Not on file ??? Number of children: Not on file ??? Years of education: Not on file ??? Highest education level: Not on file Occupational History ??? Not on file Tobacco Use ??? Smoking status: Never Smoker Substance and Sexual Activity ??? Alcohol use: Not on file ??? Drug use: Not on file ??? Sexual activity: Not on file Other Topics Concern ??? Not on file Social History Narrative ??? Not on file Social Determinants of Health Financial Resource Strain: ??? Difficulty of Paying Living Expenses: Food Insecurity: ??? Worried About Running Out of Food in the Last Year: ??? Ran Out of Food in the Last Year: Transportation Needs: ??? Lack of Transportation (Medical): ??? Lack of Transportation (Non-Medical): Physical Activity: ??? Days of Exercise per Week: ??? Minutes of Exercise per Session: Stress: ??? Feeling of Stress : Social Connections: ??? Frequency of Communication with Friends and Family: ??? Frequency of Social Gatherings with Friends and Family: ??? Attends Alevism Services: ??? Active Member of Clubs or Organizations: ??? Attends Club or Organization Meetings: ??? Marital Status: Intimate Partner Violence: ??? Fear of Current or Ex-Partner: ??? Emotionally Abused: ??? Physically Abused: ??? Sexually Abused: Review of Systems Constitutional: Negative. HENT: Negative. Eyes: Negative. Respiratory: Negative. Cardiovascular: Negative. Gastrointestinal: Negative. Genitourinary: Negative. Musculoskeletal: Negative. Skin: Negative. Neurological: Negative. Endo/Heme/Allergies: Negative. Psychiatric/Behavioral: Positive for depression and memory loss. There has not been hospitalizations, or major medical illnesses since the last visit. Medical Records Review: I reviewed [facility] notes and prior Neuropsychometric testing scores. [facility] Neurobehavioral Status Exam Results 08/01/2019 08/14/2020 Repository ICF signed? No No Verbal Fluency Total Score (No Data) 12 [place] Naming (15 item) Total Score 13 13 MMSE Score 21 19 Word List Memory Task 6 7 Word List Recall 0 0 Short Blessed Total Score 18 21 Logical Memory Total Score 3 1 Trails A - Seconds to complete 100 129 Trails A - Errors 1 0 Trails B - Seconds to complete (No Data) (No Data) Total Score (out of 90) (No Data) (No Data) Lab Results Component Value Date TSH 8.33 (H) 08/01/2019 No results found for: WBC, HGB, HCT, MCV, LABPLAT Lab Results Component Value Date GLUCOSE 186 08/01/2019 CALCIUM 8.6 08/01/2019 SODIUM 136 08/01/2019 POTASSIUM 3.4 08/01/2019 CO2 27 08/01/2019 CHLORIDE 100 08/01/2019 BUNSER 16 08/01/2019 CREATININE 1.28 (H) 08/01/2019 Lab Results Component Value Date ALT 42 08/01/2019 AST 32 08/01/2019 ALKPHOS 92 08/01/2019 BILITOT 0.2 08/01/2019 Lab Results Component Value Date VITB12 603 08/01/2019 PHYSICAL EXAMINATION BP 135/69 (BP Location: Left arm, Patient Position: Sitting) Pulse 91 Temp (!) 35.9 ??C (96.7 ??F) Ht 163.8 cm (5' 4.5 ) Wt 79.6 kg (175 lb 8 oz) SpO2 94% BMI 29.66 kg/m?? General Assessment There were no orthostatic complaints. Cranial Nerves Visual smith testing intact. Pupils were equal, round and reactive to light. Extraocular movementswere normal with smooth pursuit. Facial sensation was intact in all three divisions of the trigeminal nerve. Facial movement was symmetric. Hearing was Intact. Palate elevation was symmetric. Shoulder shrug and head turning were symmetric. Tongue protrusion was midline. Motor Motor exam revealed normal bulk, normal tone, and decrease LE strength. Fine finger movements were normal . There was no pronator drift. Tremor was absent, bradykinesia was absent. Sensation Sensation was intact to light touch. Coordination Rwwojm-gdle-psxdac testing was normal. Reflexes Reflexes were symmetric at the biceps, brachioradialis and knees. Gait Gait was slow, decreased arm swing and step height She was fluent throughout the interview and examination. NEUROBEHAVIORAL TESTING REPORT On formal neurobehavioral testing, which took from 2468-2186 , scores were in the mild to moderately impaired range on tests of semantic memory ([place] Naming, verbal fluency). Scores were in the mild to moderately impaired range on tests of episodic memory (logical memory). Scores were in the mildly impaired range on tests of speeded psychomotor performance (trailmaking). On more global tests, MMSE was 19. Episodic recall was 0/5. These findings are consistent with mildto moderately impaired. She was not able to subtract serials threes, was able to calculate the number of quarters in $6.75,was able to draw a clock. My interpretation and reporting of these results took 15 minutes. I reviewed the testing with the CS (CS'S) and patient and compared prior testing scores. GDS (Geriatric Depression Screen) was administered today, this was reviewed in the psychometric package- She endorsed 0 items on the GDS. Neurobehavioral test results: [facility] Neurobehavioral Status Exam Results 08/01/2019 08/14/2020 Repository ICF signed? No No Verbal Fluency Total Score (No Data) 12 [place] Naming (15 item) Total Score 13 13 MMSE Score 21 19 Word List Memory Task 6 7 Word List Recall 0 0 Short Blessed Total Score 18 21 Logical Memory Total Score 3 1 Trails A - Seconds to complete 100 129 Trails A - Errors 1 0 Trails B - Seconds to complete (No Data) (No Data) Total Score (out of 90) (No Data) (No Data) Clinical Dementia Rating: [facility] CDR/DIAGNOSIS NEW 08/01/2019 08/14/2020 Repository ICF signed? No No Memory 1 1 Orientation 1 1 Judgement & Problem Solving 1 1 Community Affairs 1 1 Home & Hobbies 1 1 Personal Care 1 1 Global Score 1 1 Sum of Boxes 6 6 Year of Onset 2014 2014 Alert for Potential Transmissible Disorders No No AD Dementia Alzheimer Disease Dementia Alzheimer Disease Dementia Mood disorder (any type) - Active ASSESSMENT Ms. Hamlin is a 80 y.o. lady with a history of slowly progressive cognitive changes, consistent with a clinical diagnosis of Alzheimer's dementia. She lives with her daughter Laura, mood is sometimes depressed, she is taking citalopram 10 mg daily currently. She will notify us if depression worsens. We discussed the benefits of exercise, she doesn't get out of bed some days per daughter. We discussed routine, Cognitive Stimulation Therapy, staying active. Medication Recommendations: daughter does not want medications for memory, the donepezil/Aricept made her fidget, anxious PLAN OF CARE: (Shared with CS, CS's) Referral made to community resources (Alzheimer's Association (support group, educational programs,caregiver health and support, online resources, safety, future planning, Trial Match for research opportunities, caregiver training, brain health, home safety, help line.) 1. Late onset Alzheimer's disease without behavioral disturbance (CMS/HCC) No orders of the defined types were placed in this encounter. Patient Instructions [facility] TODAY'S VISIT Provider: SHELBIE Lara (Nurse Practitioner) Thank you for coming to the [facility] today. We appreciate this opportunity to participate in your care. We have reviewed the concerns about your memory and thinking. Diagnosis We think that the changes you and your family have observed in your memory and thinking are most likely caused by: Alzheimer's dementia, mild to moderate impairment. It will be important to re-assess your memory in the future. We can compare your test results in the future to the test results from today so we can get a more accurate picture of how your memory haschanged. Medications: No changes were made in your medications today Additional Recommendations: Nutrition: We recommend that you eat a balanced diet, including fruits and vegetables daily and regular servings of fish. We recommend a heart healthy diet. Activity: We recommend that you engage in daily physical activity such as walking or stretching. Werecommend you do things that stimulate your mind, such as puzzles, books, working on hobbies, visiting with friends and relatives or engaging in other social and community activities. We recommend, Cognitive Stimulation Therapy- [facility]: This is a virtual program based on theprinciples of cognitive stimulation therapy starting in April for individuals with mild to moderate memory loss. Please contact [email or web address] or call [phone]. We discussed the importance of physical activity, we recommend you exercise a minimum of 3-4 times per week, local community centers often offer classes for older adults. Exercise improves blood flowto the brain, boosts energy level and mood, and improves sleep. It???s important that you remain mobile to maintain your independence. Sleep: Sleep can have a big effect on your memory and thinking. Make sure you get a good night's sleep every night. If you have trouble sleeping, make sure you follow these rules for basic sleep hygiene: -Get up at the same time every morning, regardless of how little or how poorly you sleep. -No napping during the day time. If naps are really necessary, nap for less than an hour and only nap before 3 PM. -Have a regular calm down time before going to bed. Do not work right up until bedtime. -Have a regular exercise schedule, as exercise helps consolidate sleep. -No caffeine for 6 hours before bedtime. -No watching T.V. or using the computer in your bedroom or at bedtime. -If you are not able to fall asleep after 20 minutes, get out of bed and do a relaxing activity fora few minutes. -Avoid taking medications like Tylenol PM, or Advil PM, these drugs can make memory and thinking worse. We recommend you do not drink alcohol, if you must drink, we recommend you limit alcohol to one drink per day, where a drink is defined as 12 oz of beer, 5 oz of wine, or 1.5 oz of spirits. Safety concerns: We recommend family oversee medications. Medication planners with alarms are sometimes helpful. We recommend The Medic Alert and Safe Return Program, from The Alzheimer's Association, please call [phone], or you can register online [email or web address]. 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 Legal: No legal concerns were discussed today. RESOURCES FOR ADDITIONAL INFORMATION AND SUPPORT Opportunities to participate in research can be found at: trialmatch.[email or web address].org Access TrialOnLivetch online. For additional assistance, email TrialMatch@[email or web address].org or call [phone] (press 1 for clinical trials). ClinicalTrials.gov is a resource provided by the U.S. National Library of Medicine. You can look upclinical trials (research opportunities) online At clinicaltrials.gov Alzheimer's Association [facility] Chapter: ; (toll free); http://www.alz.org, The Alzheimer's Association 29/12 Helpline provides reliable information and support to all those who need assistance. Call toll-free anytime day or night at . Caregiver Guide: tips for caregivers of people with Alzheimer's dementia, www.jordy.nih.gov/Alzheimers /Publication/Vnmobf-wstjgx-ztytwyqdrs-disease/about-guide [facility], [address] [place]. [address], , Occupational Therapists who offers caregiver training, family support, and in home safety assessments at no cost. Memorycarehs.org [facility] (serving [facility]) http://[facility].org/government/hslaaa.html [facility] on A[facility] (serving [facility] http://www[email or web address] The best way to reach our team is via My Chart, this is a secure way for us to communicate about your health care. Please call The My Chart Support Desk: [phone] or [phone] to obtain a link. If you prefer to communicate by phone, please call our nurse at [phone], option 4, leave a message, this voicemail is checked several times per day. If you need to contact our Jig Grinder, please contact Maricruz Coburn [phone]. I spent [id number] minutes,face to face with Ms. Hamlin and the CS/CS's, for assessment of, and care planning for this patient who has cognitive impairment. Over 50 % of the total visit time was spent on counseling, and coordination of care. See after visit summary for discussion/education topic specifics to today's discussion. A written copy of discussion topics was provided to the patient and family, all questions were answered. In addition to this time, I spent 10 minutes reviewing the chart prior to the visit and 10 minutes on documentation in the EMR. Elana Oliver, RAJAT-C [facility] of [address], [address] [place] [address] R RACER documented in this encounter Plan of Treatment Not on file documented as of this encounter Visit Diagnoses Diagnosis Late onset Alzheimer's disease without behavioral disturbance (HCC)- Primary documented in this encounter Discontinued Medications Medication Sig Discontinue Reason Start Date End Da te donepezil (ARICEPT) 5 mg tabletIndications:Memory changes Take 1 tablet (5 mg total) by mouth nightly 08/01/2019 08/14/2020 documented as of this encounter Historical Medications * This list may reflect changes made after this encounter. ascorbic acid (VITAMIN C) 100 mg tablet Take 100 mg by mouth daily 08/27/2021 iron 18 mg tablet Take 150 mg by mouth 08/27/2022 added in this encounter Care Teams Automobile Radiator Mechanic Relationship Specialty Start Date End Date Cedric Nguyen MD [address] [place], [place] [id number] PCP - General 09/17/16 documented as of this encounter
--- OUTSIDE RECORDS SUMMARY | 2024-05-24 20:20 | XMS_ITS | Encounter Summary ---
Author Organization [facility] Address [address] [place] [address] Phone Care Team Providers Care Cam Milling Machine Operator Name Role Phone Cedric Nguyen MD Primary Care Provide r Encounter Details Date Type Department Care Team (Late st Contact Info) Description 09/24/2023 Orders Only [facility] First Floor [address] [place] [address] Chad Boudreaux NP [address] [place] [address] Social History Tobacco Use Types Packs/Day Years Used Date Smoking Tobacco: Never Comments Unknown Sex and Gender Information Value Date Recorded Sex Assigned at Not on file Legal Sex Female 8:04 AM CDT Gender Identity Not on file Sexual Orientation Not on file documented as of this encounter Ordered Prescriptions Prescription Sig Dispense Quantity Refills Last Filled Start Date End Date QUEtiapine (SEROquel) 50 mg tabletIndications: Generalized Anxiety Disorder Take 1 tablet (50 mg total) by mouth nightly 90 tablet 09/24/2023 documented in this encounter Plan of Treatment Not on file documented as of this encounter Visit Diagnoses Not on filedocumented in this encounter Discontinued Medications Medication Sig Discontinue Reason Start Date End Da te QUEtiapine (SEROquel) 25 mg tabletIndications:Genera lized Anxiety Disorder Take 1 tablet (25 mg total) by mouth nightly 09/02/2023 09/24/2023 documented as of this encounter Care Teams Cam Milling Machine Operator Relationship Specialty Start Date End Date Cedric Nguyen MD [address] [id number] PCP - General 09/17/16 documented as of this encounter
--- OUTSIDE RECORDS SUMMARY | 2024-05-24 20:20 | XMS_ITS | Encounter Summary ---
Author Organization [facility] Address [address] [place] [address] Phone Care Team Providers Care Regional Guide Name Role Phone Cedric Nguyen MD Primary Care Provide r Reason for Referral * Consultation (Routine) - Authorized Specialty Diagnoses / Procedures Referred By Awa foley Referred To Contact [facility] Diagnoses Pubic ramus fracture, right, closed, initial encounter (HCC) Ngoc Singh MD [address] [facility] [place] [address] Phone: tel: fax: [facility] (All Locations) Referral ID Status Reason Start Date Expiration Date Visits Requested Visits Authorized [id number] Authorized Specialty Services Required 05/16/2024 06/15/2025 1 1 Question Answer Please select the performing region: [facility] (All Locations) [167] # of visits: 1 Comments Fall resulting in R zone 1 sacral fx, R inf and sup pubic rami fx (LC1) 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 Encounter Details Date Type Department Care Team (Late st Contact Info) Description 05/16/2024 Orders Only [facility] Orthopaedic Surgery [address] [facility] [address] [place] [address] [place] [address] Ngoc Singh MD [address] [facility] [address] [address] Pubic ramus fracture, right, closed, initial encounter (HCC) (Primary Dx) Social History Tobacco Use Types Packs/Day Years Used Date Smoking Tobacco: Never Smokeless Tobacco: Never Personal Safety Answer Date Recorded Have you [...] as of this encounter Plan of Treatment Scheduled Referrals Name Type Priority Associated Diagnoses Order Schedule Ambulatory referral to [facility] Outpatient Referral Routine Pubic ramus fracture, right, closed, initial encounter (HCC) Expected: 05/30/2024 (Approximate), Expires: 05/16/2025 documented as of this encounter Visit Diagnoses Diagnosis Pubic ramus fracture, right, closed, initial encounter (HCC)- Primary documented in this encounter Additional Health Concerns Infection Onset Date Last Indicated Resolved Time Rhino/Enterovirus 05/14/2024 05/14/2024 05/21/2024 3:05 AM 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
--- OUTSIDE RECORDS SUMMARY | 2024-05-24 20:20 | XMS_ITS | Encounter Summary ---
Author Organization [facility] Address [address] [place] [address] Care Team Providers Care Station Mechanic Helper Name Role Phone Unavailable Primary Care Provider Unavailabl e Encounter Details Date Type Department Care Team (Latest Contact Info) Description 09/16/2016 1:22 PM CDT - 09/16/2016 11:59 PM CDT Hospital Encounter [facility] INTERIM [phone] Adam Beaver MD [address] [facility] [address] [place] [address] Discharge Disposition: Discharge to home or self [...] Procedure Name Priority Date/Time Associated Diagnosis Comments CTA NECK W WO CONTRAST Routine 09/16/2016 7:14 PM CDT CTA HEAD W WO CONTRAST Routine 09/16/2016 7:14 PM CDT POCT CREATININE FOR CONTRAST EVALUATION Routine Gen Lab 09/16/2016 1:58 PM CDT documented in this encounter Results * CTA Head W WO Contrast (09/16/2016 7:14 PM CDT) Anatomical Region Laterality Modality Head and Neck N/A Computed Tomogra phy 09/16/2016 7:14 PM CDT Narrative 09/16/2016 7:14 PM CDT MESFIN QUINTERO M.D. RAUL ECHEVARRIA M.D. FINAL REPORT The radiology attending physician has personally reviewed this study, and has reviewed and/or edited this written report and agrees with it. ACC# ??Date Time ??Exam [id number] Sep 16, 2016 14:14:[id number] Angio Head w/o ??and ??w cont [id number] Sep 16, 2016 14:14:[id number] Angio Neck EXAMINATION: ?? Computed tomography angiography (CTA) of the head and neck without and with contrast HISTORY: Carotid artery atherosclerosis TECHNIQUE: Computed tomography of the head was performed without contrast according to standard protocol. Computed tomographic angiography was obtained from the level of the aortic arch to the vertex following the uneventful administration of intravenous contrast. 3D images were generated on a dedicated workstation. Contrast information: 98 mL Optiray-350 COMPARISON: None available. FINDINGS: There is no acute intracranial hemorrhage. [...] by the right sided circulation at the [place] of [place]. There is severe atherosclerotic calcification of the right internal carotid artery distal to the bifurcation, residual lumen measuring 1.2 mm compared to distal normal arterial lumen of 4.8 cm (75% stenosis). The visualized aortic arch appears normal with normal configuration of the great vessels. The innominate artery and both subclavian arteries are normal in course and caliber. The kljqgv-zu-Qoeklr is complete. The anterior and middle cerebral arteries are normal. The vertebral arteries are codominant. The basilar artery is normal. The posterior cerebral arteries are normal. There is no aneurysm or vascular malformation identified. IMPRESSION: ?? Atherosclerotic calcification of the right internal carotid artery just distal to the bifurcation (75% stenosis). 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 Requested By: ADAM BEAVER ??Garret Dictated By: ?? RAUL ECHEVARRIA M.D. ??on Sep 16 2016 ??3:40P This document has been electronically signed by: MESFIN QUINTERO M.D. on Sep 16 2016 ??5:11P [id number] Procedure Note Miscellaneous, Notinfile / Provider, MD Luisito - 10/30/2016 Garret JOHNSON M.D. FINAL REPORT The radiology attending physician has personally reviewed this study, and has reviewed and/or edited this written report and agrees with it. ACC# Date Time Exam [id number] Sep 16, 2016 14:14:[id number] Angio Head w/o and w cont [id number] Sep 16, 2016 14:14:[id number] Angio Neck EXAMINATION: Computed tomography angiography (CTA) of the head and neck without and with contrast HISTORY: Carotid artery atherosclerosis TECHNIQUE: Computed tomography of the head was performed without contrast according to standard protocol. Computed tomographic angiography was obtained from the level of the aortic arch to the vertex following the uneventful administration of intravenous contrast. 3D images were generated on a dedicated workstation. Contrast information: 98 mL Optiray-350 COMPARISON: None available. FINDINGS: There is no acute intracranial hemorrhage. [...] by the right sided circulation at the [place] of [place]. There is severe atherosclerotic calcification of the right internal carotid artery distal to the bifurcation, residual lumen measuring 1.2 mm compared to distal normal arterial lumen of 4.8 cm (75% stenosis). The visualized aortic arch appears normal with normal configuration of the great vessels. The innominate artery and both subclavian arteries are normal in course and caliber. The tmizvi-zm-Qgqhnv is complete. The anterior and middle cerebral [...] to the bifurcation with reconstitution at the [place] of [place]. Requested By: ADAM BEAVER M.D. Dictated By: RAUL ECHEVARRIA M.D. on Sep 16 2016 3:40P This document has been electronically signed by: MESFIN QUINTERO M.D. on Sep 16 2016 5:11P [id number] us Not In File Miscellaneous IMG CT PROCEDURES Chanelle l Result * CTA Neck W WO Contrast (09/16/2016 7:14 PM CDT) Anatomical Region Laterality Modality Head and Neck N/A Computed Tomogra phy 09/16/2016 7:14 PM CDT Narrative 09/16/2016 7:14 PM CDT Garret JOHNSON M.D. FINAL REPORT The radiology attending physician has personally reviewed this study, and has reviewed and/or edited this written report and agrees with it. ACC# ??Date Time ??Exam [id number] Sep 16, 2016 14:14:[id number] Angio Head w/o ??and ??w cont [id number] Sep 16, 2016 14:14:[id number] Angio Neck EXAMINATION: ?? Computed tomography angiography (CTA) of the head and neck without and with contrast HISTORY: Carotid artery atherosclerosis TECHNIQUE: Computed tomography of the head was performed without contrast according to standard protocol. Computed tomographic angiography was obtained from the level of the aortic arch to the vertex following the uneventful administration of intravenous contrast. 3D images were generated on a dedicated workstation. Contrast information: 98 mL Optiray-350 COMPARISON: None available. FINDINGS: There is no acute intracranial hemorrhage. [...] by the right sided circulation at the [place] of [place]. There is severe atherosclerotic calcification of the right internal carotid artery distal to the bifurcation, residual lumen measuring 1.2 mm compared to distal normal arterial lumen of 4.8 cm (75% stenosis). The visualized aortic arch appears normal with normal configuration of the great vessels. The innominate artery and both subclavian arteries are normal in course and caliber. The bgxlep-nj-Qgehjo is complete. The anterior and middle cerebral arteries are normal. The vertebral arteries are codominant. The basilar artery is normal. The posterior cerebral arteries are normal. There is no aneurysm or vascular malformation identified. IMPRESSION: ?? Atherosclerotic calcification of the right internal carotid artery just distal to the bifurcation (75% stenosis). 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 Requested By: ADAM BEAVER ??Radha. Dictated By: ?? RAUL ECHEVARRIA M.D. ??on Sep 16 2016 ??3:40P This document has been electronically signed by: MESFIN QUINTERO M.D. on Sep 16 2016 ??5:11P [id number] Procedure Note Miscellaneous, Notinfile - 10/30/2016 Garret JOHNSON M.D. FINAL REPORT The radiology attending physician has personally reviewed this study, and has reviewed and/or edited this written report and agrees with it. ACC# Date Time Exam [id number] Sep 16, 2016 14:14:[id number] Angio Head w/o and w cont [id number] Sep 16, 2016 14:14:[id number] Angio Neck EXAMINATION: Computed tomography angiography (CTA) of the head and neck without and with contrast HISTORY: Carotid artery atherosclerosis TECHNIQUE: Computed tomography of the head was performed without contrast according to standard protocol. Computed tomographic angiography was obtained from the level of the aortic arch to the vertex following the uneventful administration of intravenous contrast. 3D images were generated on a dedicated workstation. Contrast information: 98 mL Optiray-350 COMPARISON: None available. FINDINGS: There is no acute intracranial hemorrhage. [...] by the right sided circulation at the [place] of [place]. There is severe atherosclerotic calcification of the right internal carotid artery distal to the bifurcation, residual lumen measuring 1.2 mm compared to distal normal arterial lumen of 4.8 cm (75% stenosis). The visualized aortic arch appears normal with normal configuration of the great vessels. The innominate artery and both subclavian arteries are normal in course and caliber. The rkhkcb-qd-Ktuwtv is complete. The anterior and middle cerebral [...] to the bifurcation with reconstitution at the [place] of [place]. Requested By: ADAM BEAVER M.D. Dictated By: RAUL ECHEVARRIA M.D. on Sep 16 2016 3:40P This document has been electronically signed by: MESFIN QUINTERO M.D. on Sep 16 2016 5:11P [id number] us Not In File Miscellaneous IMG CT PROCEDURES Chanelle l Result * POCT creatinine (09/16/2016 1:58 PM CDT) Creatinine POC 1.0 0.6 - 1.1 mg/dL SJ CLOUD Blood specimen (specimen) 09/16/2016 1:58 PM CDT 09/16/2016 1:58 PM CDT us Adam Beaver MD POINT OF CARE TEST ORDERABLES Fi nal Result Performing Organization Address City/State/[facility] Co de Phone Number [facility] Department [place] [address] documented in this encounter Visit Diagnoses Not on filedocumented in this encounter
--- OUTSIDE RECORDS SUMMARY | 2024-05-24 20:20 | XMS_ITS | Referral Summary ---
Author Organization [facility] Address [address] [place] [address] Care Team Providers Care Care Associate Name Role Phone Cedric Nguyen MD Primary Care Provide r Encounters Date Type Department Care Team Description 05/14/2024 5:23 AM STROBOSCOPE OPERATOR - 05/20/2024 6:45 PM STROBOSCOPE OPERATOR Hospital Encounter [address] [phone] Kenneth Vallecillo MD Theodoro, MD Olivia Wood, MD Brenodn Zabala Caleb, MD Pubic ramus fracture, right, open, initial encounter (HCC) (Primary Dx); Fall, initial encounter; Hypoxia; Rhinovirus Discharge Disposition: Discharge to SNF 05/16/2024 Orders Only [facility] Orthopaedic Surgery [address] [facility] 6th [place] [address] [place] [phone] Ngoc Singh MD Pubic ramus fracture, right, closed, initial encounter (HCC) (Primary Dx) 05/16/2024 6:50 AM STROBOSCOPE OPERATOR Ancillary Procedure [facility] Vascular Lab IP [address] [facility] [address] [place] [phone] 03/17/2024 1:45 PM CDT Office Visit [facility] [address] [facility] 6th Floor [address] [place] [phone] Chad Boudreaux NP 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) (Primary Dx) from Last 3 Months Allergies No known active allergies Medications levothyroxine (SYNTHROID) 137 mcg tablet Take by mouth helper driver before breakfast Active omeprazole (PriLOSEC) 20 mg [...] 05/18/2024 Assessment & Plan (05/18/2024 7:53 AM STROBOSCOPE OPERATOR): 05/16 removed Briscoe- void check 05/17 noted agitation per nursing, and frequent incontinence, Bladder Scan 650 mL, Briscoe catheter placed UTI (urinary tract infection) 05/17/2024 Assessment & Plan (05/18/2024 7:47 AM STROBOSCOPE OPERATOR): 05/14 UA sent on admission, refluxed to CX 05/17 changed Cefepime to Keflex PO x 5 days (05/17-05/22) CX: 05/14 UCX: Klebsiella Pneumoniae ABX: Cefepime (05/14-05/17) Keflex (05/17-05/22) Pubic ramus fracture, right, closed, initial enc ounter 05/14/2024 Assessment & Plan (05/19/2024 1:46 PM STROBOSCOPE OPERATOR): - Orthopedics consult, non-op management - WBAT RLE - Pain control - PT/OT PLAN: Follow up with Dr. Singh, 06/29/21 at 12:30 weight bearing as tolerated, post orthopedic injury DVT prophylaxis Eliquis 2.5 mg pO x 4 weeks at discharge Possible syncopal fall 05/14/2024 Assessment & Plan (05/17/2024 8:26 AM STROBOSCOPE OPERATOR): - Orthostatics - TTE - Carotid duplex - F/u CT body read. ?Possible RUL consolidation on CXR + leukocytosis in ED for which she received a dose of cefepime in the ED 05/15: Syncope workup 05/16 Carotid ultrasounds completed- no interventions required 05/17 ECHO- results pending Discharge planning issues 05/14/2024 Assessment & Plan (05/19/2024 1:46 PM STROBOSCOPE OPERATOR): 05/14 Admitted, syncope, PT/OT 05/16 poorly controlled pain, started schedule pain medications 05/17 agitation, Briscoe catheter placed for urinary retention 05/18 requiring 1:1 sitter 05/19 still requiring 1:1 sitter Treatment Plan completed Acute pain 05/14/2024 Assessment & Plan (05/14/2024 2:29 PM STROBOSCOPE OPERATOR): 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 08/27/2022 Assessment & Plan (05/19/2024 12:09 PM STROBOSCOPE OPERATOR): Continue home Celexa 20 daily, Seroquel 50 [...] 08/01/2019 Assessment & Plan (05/14/2024 1:42 PM STROBOSCOPE OPERATOR): Continue home atorvastatin 10 daily Chronic low back pain 08/01/2019 Hypothyroid 08/01/2019 Assessment & Plan (05/14/2024 1:43 PM STROBOSCOPE OPERATOR): Continue home levothyroxine 137mcg daily Memory changes 08/01/2019 Major depressive disorder 08/01/2019 Essential (primary) hypertension 11/18/2016 Atherosclerosis of both carotid arteries 017 Assessment & Plan (05/18/2024 7:51 AM STROBOSCOPE OPERATOR): - History of R CEA (2016) and known completely occluded L ICA - repeat carotid duplex given possible syncope - patient should be on ASA 81mg once able to confirm she has no contraindications 05/18 started Aspirin 81 mg PO daily Social History Tobacco Use Types Packs/Day Years Used Date Smoking Tobacco: Never Smokeless Tobacco: Never Tobacco Cessation:Counseling Given: Not Answered [facility] Utilities Answer Date Recorded In the past 12 months has th e electric, gas, oil, or water company threatened to shut off services in your [...] often do you attend chur ch or anabaptist services? Never 05/20/2024 Do you belong to any clubs o r organizations such as religious groups, unions, fraternal or athletic groups, or [...] any time in the past 12 m [facility], were you homeless or living in a detention (including now)? No 05/20/2024 Personal Safety Answer [...] Comments Blood Pressure 116/100 05/20/2024 5:11 PM STROBOSCOPE OPERATOR Pulse 99 05/20/2024 5:11 PM STROBOSCOPE OPERATOR Temperature 37.2 ??C (99 ??F) 05/20/2024 5:11 PM STROBOSCOPE OPERATOR Respiratory Rate 20 05/20/2024 5:11 PM STROBOSCOPE OPERATOR Oxygen Saturation 92% 05/20/2024 5:11 PM STROBOSCOPE OPERATOR Inhaled Oxygen Concentration - - Weight 100.7 kg (222 lb) 05/16/2024 9:35 PM STROBOSCOPE OPERATOR Height 163.8 cm (5' 4.5 ) 05/16/2024 9:35 PM STROBOSCOPE OPERATOR Body Mass Index 37.52 05/16/2024 9:35 PM STROBOSCOPE OPERATOR Plan of Treatment Not on file Procedures Procedure Name Priority Date/Time Associated Diagnosis Comments POCT GLUCOSE DEVICE Routine 05/20/2024 5 :16 PM STROBOSCOPE OPERATOR POCT GLUCOSE DEVICE Routine 05/20/2024 1 1:11 AM STROBOSCOPE OPERATOR POCT GLUCOSE DEVICE Routine 05/20/2024 7 :52 AM STROBOSCOPE OPERATOR EGFR Routine 05/19/2024 10:37 PM STROBOSCOPE OPERATOR BASIC METABOLIC PANEL Routine 05/19/2024 10:37 PM STROBOSCOPE OPERATOR POCT GLUCOSE DEVICE Routine 05/19/2024 9 :07 PM STROBOSCOPE OPERATOR POCT GLUCOSE DEVICE Routine 05/19/2024 5 :15 PM STROBOSCOPE OPERATOR POCT GLUCOSE DEVICE Routine 05/19/2024 1 1:11 AM STROBOSCOPE OPERATOR POCT GLUCOSE DEVICE Routine 05/19/2024 7 :27 AM STROBOSCOPE OPERATOR EGFR Routine 05/18/2024 9:10 PM STROBOSCOPE OPERATOR BASIC METABOLIC PANEL Routine 05/18/2024 9:10 PM STROBOSCOPE OPERATOR PHOSPHORUS Routine 05/18/2024 9:10 PM STROBOSCOPE OPERATOR MAGNESIUM Routine 05/18/2024 9:10 PM STROBOSCOPE OPERATOR CBC WITHOUT DIFFERENTIAL Routine 05/18/2024 9:10 PM STROBOSCOPE OPERATOR POCT GLUCOSE DEVICE Routine 05/18/2024 8 :55 PM STROBOSCOPE OPERATOR POCT GLUCOSE DEVICE Routine 05/18/2024 5 :27 PM STROBOSCOPE OPERATOR POCT GLUCOSE DEVICE Routine 05/18/2024 1 1:33 AM STROBOSCOPE OPERATOR POCT GLUCOSE DEVICE Routine 05/18/2024 8 :55 AM STROBOSCOPE OPERATOR POCT GLUCOSE DEVICE Routine 05/17/2024 9 :46 PM STROBOSCOPE OPERATOR EGFR Routine 05/17/2024 9:33 PM STROBOSCOPE OPERATOR BASIC METABOLIC PANEL Routine 05/17/2024 9:33 PM STROBOSCOPE OPERATOR PHOSPHORUS Routine 05/17/2024 9:33 PM STROBOSCOPE OPERATOR MAGNESIUM Routine 05/17/2024 9:33 PM STROBOSCOPE OPERATOR CBC WITHOUT DIFFERENTIAL Routine 05/17/2024 9:33 PM STROBOSCOPE OPERATOR POCT GLUCOSE DEVICE Routine 05/17/2024 9 :02 PM STROBOSCOPE OPERATOR POCT GLUCOSE DEVICE Routine 05/17/2024 5 :22 PM STROBOSCOPE OPERATOR POCT GLUCOSE DEVICE Routine 05/17/2024 1 1:53 AM STROBOSCOPE OPERATOR POCT GLUCOSE DEVICE Routine 05/17/2024 8 :45 AM STROBOSCOPE OPERATOR POTASSIUM, WHOLE BLOOD Routine 05/16/2024 11:23 PM STROBOSCOPE OPERATOR POCT GLUCOSE DEVICE Routine 05/16/2024 8 :26 PM STROBOSCOPE OPERATOR EGFR Routine 05/16/2024 8:26 PM STROBOSCOPE OPERATOR BASIC METABOLIC PANEL Routine 05/16/2024 8:26 PM STROBOSCOPE OPERATOR PHOSPHORUS Routine 05/16/2024 8:26 PM STROBOSCOPE OPERATOR MAGNESIUM Routine 05/16/2024 8:26 PM STROBOSCOPE OPERATOR CBC WITHOUT DIFFERENTIAL Routine 05/16/2024 8:26 PM STROBOSCOPE OPERATOR POCT GLUCOSE DEVICE Routine 05/16/2024 6 :10 PM STROBOSCOPE OPERATOR POCT GLUCOSE DEVICE Routine 05/16/2024 1 :34 PM STROBOSCOPE OPERATOR US CAROTIDS DUPLEX BILATERAL IP Routine 05/16/2024 1:16 PM STROBOSCOPE OPERATOR POCT GLUCOSE DEVICE Routine 05/16/2024 8 :21 AM STROBOSCOPE OPERATOR EGFR Routine 05/15/2024 9:06 PM STROBOSCOPE OPERATOR BASIC METABOLIC PANEL Routine 05/15/2024 9:06 PM STROBOSCOPE OPERATOR PHOSPHORUS Routine 05/15/2024 9:06 PM STROBOSCOPE OPERATOR MAGNESIUM Routine 05/15/2024 9:06 PM STROBOSCOPE OPERATOR CBC WITHOUT DIFFERENTIAL Routine 05/15/2024 9:06 PM STROBOSCOPE OPERATOR POCT GLUCOSE DEVICE Routine 05/15/2024 8 :48 PM STROBOSCOPE OPERATOR POCT GLUCOSE DEVICE Routine 05/15/2024 5 :34 PM STROBOSCOPE OPERATOR POCT GLUCOSE DEVICE Routine 05/15/2024 1 2:51 PM STROBOSCOPE OPERATOR POCT GLUCOSE DEVICE Routine 05/15/2024 7 :55 AM STROBOSCOPE OPERATOR POTASSIUM, WHOLE BLOOD Timed 05/14/2024 11:06 PM STROBOSCOPE OPERATOR EGFR Routine 05/14/2024 9:02 PM STROBOSCOPE OPERATOR BASIC METABOLIC PANEL Routine 05/14/2024 9:02 PM STROBOSCOPE OPERATOR PHOSPHORUS Routine 05/14/2024 9:02 PM STROBOSCOPE OPERATOR MAGNESIUM Routine 05/14/2024 9:02 PM STROBOSCOPE OPERATOR CBC WITHOUT DIFFERENTIAL Routine 05/14/2024 9:02 PM STROBOSCOPE OPERATOR POCT GLUCOSE DEVICE Routine 05/14/2024 6 :10 PM STROBOSCOPE OPERATOR XR PELVIS 3 OR MORE VIEWS ED 05/14/2024 10:46 AM STROBOSCOPE OPERATOR RESPIRATORY PATHOGEN PANEL Routine 05/14/2024 10:[address] BODY OUTSIDE REFERENCE Routine 05/14/2024 10:12 AM STROBOSCOPE OPERATOR URINALYSIS, MICROSCOPIC ONLY STAT 05/14/2024 10:12 AM STROBOSCOPE OPERATOR URINE CULTURE STAT 05/14/2024 10:12 AM STROBOSCOPE OPERATOR URINALYSIS AND REFLEX TO MICROSCOPIC AND CULTURE STAT 05/14/2024 10:12 AM STROBOSCOPE OPERATOR XR CHEST 1 VIEW Critical/Life-T hreatening 05/14/2024 7:22 AM STROBOSCOPE OPERATOR B CHECK SAMPLE STAT 05/14/2024 6:48 AM STROBOSCOPE OPERATOR NEURO CT OUTSIDE CONSULT Routine 05/14/2024 6:09 AM STROBOSCOPE OPERATOR NEURO CT OUTSIDE REFERENCE Routine 05/14/2024 6:[address] BODY OUTSIDE CONSULT Routine 05/14/2024 5:59 AM STROBOSCOPE OPERATOR XR TRANSFER OF OUTSIDE FILMS Routine 05/14/2024 5:56 AM STROBOSCOPE OPERATOR XR TRANSFER OF OUTSIDE FILMS Routine 05/14/2024 5:[address] BODY OUTSIDE REFERENCE Routine 05/14/2024 5:46 AM STROBOSCOPE OPERATOR NEURO CT OUTSIDE REFERENCE Routine 05/14/2024 5:44 AM STROBOSCOPE OPERATOR EGFR STAT 05/14/2024 5:35 AM STROBOSCOPE OPERATOR DIFFERENTIAL AUTO STAT 05/14/2024 5:3 5 AM STROBOSCOPE OPERATOR TYPE AND SCREEN STAT 05/14/2024 5:35 AM STROBOSCOPE OPERATOR APTT STAT 05/14/2024 5:35 AM STROBOSCOPE OPERATOR PROTIME-INR STAT 05/14/2024 5:35 AM STROBOSCOPE OPERATOR COMPREHENSIVE METABOLIC PANEL STAT 05/14/2024 5:35 AM STROBOSCOPE OPERATOR CBC WITH AUTO DIFFERENTIAL STAT 05/14/2024 5:35 AM STROBOSCOPE OPERATOR from Last 3 Months Results * POCT glucose (05/20/2024 5:16 PM STROBOSCOPE OPERATOR) Glucose, POC 126 70 - 199 mg/dL Blood 05/20/2024 5:16 PM STROBOSCOPE OPERATOR 05/20/2024 5:16 PM STROBOSCOPE OPERATOR Landy Sawant MD LAB POCT ORDERABLES - DEVICE Final Result Performing Organization Address [facility] de Phone Number [facility] [place] [address] * POCT glucose (05/20/2024 11:11 AM STROBOSCOPE OPERATOR) Glucose, POC 118 70 - 199 mg/dL Blood 05/20/2024 11:1 1 AM STROBOSCOPE OPERATOR 05/20/2024 11:11 AM STROBOSCOPE OPERATOR Landy Sawant MD LAB POCT ORDERABLES - DEVICE Final Result Performing Organization Address [facility] de Phone Number [facility] [place] [address] * POCT glucose (05/20/2024 7:52 AM STROBOSCOPE OPERATOR) Glucose, POC 125 70 - 199 mg/dL Blood 05/20/2024 7:52 AM STROBOSCOPE OPERATOR 05/20/2024 7:52 AM STROBOSCOPE OPERATOR Landy Sawant MD LAB POCT ORDERABLES - DEVICE Final Result Performing Organization Address [facility] de Phone Number [facility] [place] [address] * eGFR (05/19/2024 10:37 PM STROBOSCOPE OPERATOR) eGFR 63 >=60 mL/min/1. 73 m2 Comment: [...] reviewed 2021. Blood 05/19/2024 10:3 7 PM STROBOSCOPE OPERATOR 05/19/2024 10:53 PM STROBOSCOPE OPERATOR Landy Sawant MD LAB BLOOD ORDERABLES F inal Result [facility] Department [place] [address] * (ABNORMAL) Basic metabolic panel (05/19/2024 10:37 PM STROBOSCOPE OPERATOR) Sodium 138 135 - 145 mmol/L Potassium, pl 4.2 3.3 - 4.9 mmol/L [facility] Chloride 102 97 - 110 mmol/L [facility] CO2 24 22 - 32 mmol/L [facility] Anion gap 12 2 - 15 mmol/L [facility] BUN 25 6 - 25 mg/dL [facility] Creatinine 0.92 0.60 - 1.10 mg/dL [facility] Glucose 125 70 - 199 mg/dL [facility] Comment: Interpretive Data Fasting [...] 2022. Calcium 8.4(L) 8.5 - 10.3 mg/dL [facility] Blood 05/19/2024 10:3 7 PM STROBOSCOPE OPERATOR 05/19/2024 10:53 PM STROBOSCOPE OPERATOR Lnady Sawant MD LAB BLOOD ORDERABLES F inal Result Performing Organization Address City/[facility] Co de Phone Number [facility] [place] [address] * POCT glucose (05/19/2024 9:07 PM STROBOSCOPE OPERATOR) Glucose, POC 114 70 - 199 mg/dL Blood 05/19/2024 9:07 PM STROBOSCOPE OPERATOR 05/19/2024 9:07 PM STROBOSCOPE OPERATOR Landy Sawant MD LAB POCT ORDERABLES - DEVICE Final Result Performing Organization Address [facility] Co de Phone Number [facility] Department [place] [address] * POCT glucose (05/19/2024 5:15 PM STROBOSCOPE OPERATOR) Glucose, POC 121 70 - 199 mg/dL Blood 05/19/2024 5:15 PM STROBOSCOPE OPERATOR 05/19/2024 5:15 PM STROBOSCOPE OPERATOR Landy Sawant MD LAB POCT ORDERABLES - DEVICE Final Result Performing Organization Address [facility] Co de Phone Number [facility] [place] [address] * POCT glucose (05/19/2024 11:11 AM STROBOSCOPE OPERATOR) Glucose, POC 118 70 - 199 mg/dL Blood 05/19/2024 11:1 1 AM STROBOSCOPE OPERATOR 05/19/2024 11:11 AM STROBOSCOPE OPERATOR us Landy Sawant MD LAB POCT ORDERABLES - DEVICE Final Result Performing Organization Address [facility] de Phone Number [facility] [place] [address] * POCT glucose (05/19/2024 7:27 AM STROBOSCOPE OPERATOR) [facility] Glucose, POC 112 70 - 199 mg/dL Blood 05/19/2024 7:27 AM STROBOSCOPE OPERATOR 05/19/2024 7:27 AM STROBOSCOPE OPERATOR Landy Sawant MD LAB POCT ORDERABLES - DEVICE Final Result Performing Organization Address [facility] de Phone Number [facility] [place] [address] * (ABNORMAL) eGFR (05/18/2024 9:10 PM STROBOSCOPE OPERATOR) [facility] eGFR 53(L) >=60 mL/min/1. 73 m2 Comment: [...] last reviewed 2021. Blood 05/18/2024 9:10 PM STROBOSCOPE OPERATOR 05/18/2024 9:26 PM STROBOSCOPE OPERATOR us Landy Sawant MD LAB BLOOD ORDERABLES F inal Result [facility] Department [place] [address] * (ABNORMAL) CBC without differential (05/18/2024 9:10 PM STROBOSCOPE OPERATOR) WBC 9.8 3.8 - 9.9 K/cumm Hgb 9.9(L) 11.9 - 15.5 g/dL [facility] Hct 30.8(L) 35.6 - 45.5 % [facility] Plt 226 150 - 400 K/cumm [facility] MPV 9.7 9.1 - 12.3 fL [facility] RBC 3.12(L) 3.90 - 5.20 M/cumm [facility] MCV 98.7(H) 81.3 - 96.4 fL [facility] MCH 31.7 27.1 - 33.3 pg [facility] MCHC 32.1(L) 32.3 - 35.7 g/dL [facility] RDW CV 14.4 11.1 - 14.9 % [facility] RDW SD 51.3(H) 35.7 - 48.1 fL [facility] NRBC abs 0.02(H) 0.00 - 0.01 K/cumm [facility] Blood 05/18/2024 9:10 PM STROBOSCOPE OPERATOR 05/18/2024 9:26 PM STROBOSCOPE OPERATOR Landy Sawant MD LAB BLOOD ORDERABLES F inal Result Performing Organization Address [facility] Co de Phone Number [facility] [place] [address] * Phosphorus (05/18/2024 9:10 PM STROBOSCOPE OPERATOR) [facility] Phosphorus, pl 2.7 2.3 - 4.5 mg/dL Blood 05/18/2024 9:10 PM STROBOSCOPE OPERATOR 05/18/2024 9:26 PM STROBOSCOPE OPERATOR Landy Sawant MD LAB BLOOD ORDERABLES F inal Result Performing Organization Address [facility] Co de Phone Number [facility] [place] [address] * Magnesium (05/18/2024 9:10 PM STROBOSCOPE OPERATOR) [facility] Magnesium 2.5 1.4 - 2.5 mg/dL Blood 05/18/2024 9:10 PM STROBOSCOPE OPERATOR 05/18/2024 9:26 PM STROBOSCOPE OPERATOR Landy Sawant MD LAB BLOOD ORDERABLES F inal Result Performing Organization Address [facility] Co de Phone Number [facility] [place] [address] * (ABNORMAL) Basic metabolic panel (05/18/2024 9:10 PM STROBOSCOPE OPERATOR) [facility] Sodium 138 135 - 145 mmol/L Potassium, pl 4.4 3.3 - 4.9 mmol/L [facility] Chloride 105 97 - 110 mmol/L [facility] CO2 25 22 - 32 mmol/L [facility] Anion gap 8 2 - 15 mmol/L [facility] BUN 32(H) 6 - 25 mg/dL [facility] Creatinine 1.06 0.60 - 1.10 mg/dL [facility] Glucose 116 70 - 199 mg/dL [facility] Comment: Interpretive Data Fasting [...] 2022. Calcium 8.8 8.5 - 10.3 mg/dL [facility] Blood 05/18/2024 9:10 PM STROBOSCOPE OPERATOR 05/18/2024 9:26 PM STROBOSCOPE OPERATOR Result [facility] Landy Sawant MD LAB BLOOD ORDERABLES F inal Result Performing Organization Address [facility] Co de Phone Number [facility] Department [place] [address] * POCT glucose (05/18/2024 8:55 PM STROBOSCOPE OPERATOR) Glucose, POC 110 70 - 199 mg/dL Blood 05/18/2024 8:55 PM STROBOSCOPE OPERATOR 05/18/2024 8:55 PM STROBOSCOPE OPERATOR Result [facility] Landy Sawant MD LAB POCT ORDERABLES - DEVICE Final Result Performing Organization Address City/[facility]/ZIP Co de Phone Number [facility] Department [place] [address] * POCT glucose (05/18/2024 5:27 PM STROBOSCOPE OPERATOR) Glucose, POC 115 70 - 199 mg/dL Blood 05/18/2024 5:27 PM STROBOSCOPE OPERATOR 05/18/2024 5:27 PM STROBOSCOPE OPERATOR Result [facility] Landy Sawant MD LAB POCT ORDERABLES - DEVICE Final Result Performing Organization Address [facility] Co [place] [address] * POCT glucose (05/18/2024 11:33 AM STROBOSCOPE OPERATOR) Glucose, POC 139 70 - 199 mg/dL Blood 05/18/2024 11:3 3 AM STROBOSCOPE OPERATOR 05/18/2024 11:33 AM STROBOSCOPE OPERATOR Landy Sawant MD LAB POCT ORDERABLES - DEVICE Final Result Performing Organization Address [facility] Co de Phone Number [facility] [place] [address] * POCT glucose (05/18/2024 8:55 AM STROBOSCOPE OPERATOR) Glucose, POC 146 70 - 199 mg/dL Blood 05/18/2024 8:55 AM STROBOSCOPE OPERATOR 05/18/2024 8:55 AM STROBOSCOPE OPERATOR Landy Sawant MD LAB POCT ORDERABLES - DEVICE Final Result Performing Organization Address [facility] Co de Phone Number [facility] [place] [address] * POCT glucose (05/17/2024 9:46 PM STROBOSCOPE OPERATOR) Glucose, POC 144 70 - 199 mg/dL Blood 05/17/2024 9:46 PM STROBOSCOPE OPERATOR 05/17/2024 9:46 PM STROBOSCOPE OPERATOR Landy Sawant MD LAB POCT ORDERABLES - DEVICE Final Result Performing Organization Address City/[facility] Co de Phone Number [facility] [place] [address] * (ABNORMAL) eGFR (05/17/2024 9:33 PM STROBOSCOPE OPERATOR) Pathologist [facility] eGFR 51(L) >=60 mL/min/1. 73 m2 Comment: [...] last reviewed 2021. Blood 05/17/2024 9:33 PM STROBOSCOPE OPERATOR 05/17/2024 9:54 PM STROBOSCOPE OPERATOR us Landy Sawant MD LAB BLOOD ORDERABLES F inal Result [facility] Department of Laboratories [place], [place] [id number] * (ABNORMAL) CBC without differential (05/17/2024 9:33 PM STROBOSCOPE OPERATOR) Pathologist [facility] WBC 13.0(H) 3.8 - 9.9 K/cumm Hgb 10.8(L) 11.9 - 15.5 g/dL [facility] Hct 32.9(L) 35.6 - 45.5 % [facility] Plt 248 150 - 400 K/cumm [facility] MPV 10.1 9.1 - 12.3 fL [facility] RBC 3.39(L) 3.90 - 5.20 M/cumm [facility] MCV 97.1(H) 81.3 - 96.4 fL [facility] MCH 31.9 27.1 - 33.3 pg [facility] MCHC 32.8 32.3 - 35.7 g/dL [facility] RDW CV 13.9 11.1 - 14.9 % [facility] RDW SD 49.3(H) 35.7 - 48.1 fL [facility] NRBC abs 0.00 0.00 - 0.01 K/cumm [facility] Blood 05/17/2024 9:33 PM STROBOSCOPE OPERATOR 05/17/2024 9:55 PM STROBOSCOPE OPERATOR Landy Sawant MD LAB BLOOD ORDERABLES F inal Result [facility] Department [place] [address] * Phosphorus (05/17/2024 9:33 PM STROBOSCOPE OPERATOR) Pathologist [facility] Phosphorus, pl 3.3 2.3 - 4.5 mg/dL Blood 05/17/2024 9:33 PM STROBOSCOPE OPERATOR 05/17/2024 9:54 PM STROBOSCOPE OPERATOR Landy Sawant MD LAB BLOOD ORDERABLES F inal Result [facility] [place] [address] * Magnesium (05/17/2024 9:33 PM STROBOSCOPE OPERATOR) Pathologist [facility] Magnesium 2.4 1.4 - 2.5 mg/dL Blood 05/17/2024 9:33 PM STROBOSCOPE OPERATOR 05/17/2024 9:54 PM STROBOSCOPE OPERATOR Landy Sawant MD LAB BLOOD ORDERABLES F inal Result Performing Organization Address City/[facility]/ZIP Co de Phone Number [facility] Department [place] [address] * (ABNORMAL) Basic metabolic panel (05/17/2024 9:33 PM STROBOSCOPE OPERATOR) [facility] Sodium 136 135 - 145 mmol/L Potassium, pl 4.5 3.3 - 4.9 mmol/L [facility] Chloride 102 97 - 110 mmol/L [facility] CO2 23 22 - 32 mmol/L [facility] Anion gap 11 2 - 15 mmol/L [facility] BUN 40(H) 6 - 25 mg/dL [facility] Creatinine 1.09 0.60 - 1.10 mg/dL [facility] Glucose 124 70 - 199 mg/dL [facility] Comment: Interpretive Data Fasting [...] 2022. Calcium 8.6 8.5 - 10.3 mg/dL [facility] Blood 05/17/2024 9:33 PM STROBOSCOPE OPERATOR 05/17/2024 9:54 PM STROBOSCOPE OPERATOR Landy Sawant MD LAB BLOOD ORDERABLES F inal Result Performing Organization Address [facility] Co de Phone Number [facility] Department [place] [address] * POCT glucose (05/17/2024 9:02 PM STROBOSCOPE OPERATOR) Glucose, POC 177 70 - 199 mg/dL Blood 05/17/2024 9:02 PM STROBOSCOPE OPERATOR 05/17/2024 9:02 PM STROBOSCOPE OPERATOR us Landy Sawant MD LAB POCT ORDERABLES - DEVICE Final Result Performing Organization Address [facility] Co de Phone Number [facility] [place] [address] * POCT glucose (05/17/2024 5:22 PM STROBOSCOPE OPERATOR) Glucose, POC 143 70 - 199 mg/dL Blood 05/17/2024 5:22 PM STROBOSCOPE OPERATOR 05/17/2024 5:22 PM STROBOSCOPE OPERATOR Result [facility] Landy Sawant MD LAB POCT ORDERABLES - DEVICE Final Result Performing Organization Address [facility] de Phone Number [facility] [place] [address] * POCT glucose (05/17/2024 11:53 AM STROBOSCOPE OPERATOR) Glucose, POC 160 70 - 199 mg/dL Blood 05/17/2024 11:5 3 AM STROBOSCOPE OPERATOR 05/17/2024 11:53 AM STROBOSCOPE OPERATOR Result [facility] Landy Sawant MD LAB POCT ORDERABLES - DEVICE Final Result Performing Organization Address [facility] Co de Phone Number [facility] [place] [address] * POCT glucose (05/17/2024 8:45 AM STROBOSCOPE OPERATOR) Glucose, POC 135 70 - 199 mg/dL Blood 05/17/2024 8:45 AM STROBOSCOPE OPERATOR 05/17/2024 8:45 AM STROBOSCOPE OPERATOR us Landy Sawant MD LAB POCT ORDERABLES - DEVICE Final Result Performing Organization Address [facility] Co de Phone Number [facility] [place] [address] * Potassium, whole blood (05/16/2024 11:23 PM STROBOSCOPE OPERATOR) Pathologist [facility] Potassium, bld 4.7 3.3 - 4.9 mmol/L Blood 05/16/2024 11:2 3 PM STROBOSCOPE OPERATOR 05/16/2024 11:29 PM STROBOSCOPE OPERATOR Landy Sawant MD LAB BLOOD ORDERABLES F inal Result Performing Organization Address [facility] de Phone Number [facility] Department [place] [address] * (ABNORMAL) eGFR (05/16/2024 8:26 PM STROBOSCOPE OPERATOR) eGFR 37(L) >=60 mL/min/1. 73 m2 Comment: [...] last reviewed 2021. Blood 05/16/2024 8:26 PM STROBOSCOPE OPERATOR 05/16/2024 8:43 PM STROBOSCOPE OPERATOR Landy Sawant MD LAB BLOOD ORDERABLES F inal Result Performing Organization Address [facility] Co de Phone Number [facility] [place] [address] * POCT glucose (05/16/2024 8:26 PM STROBOSCOPE OPERATOR) [facility] Glucose, POC 148 70 - 199 mg/dL Blood 05/16/2024 8:26 PM STROBOSCOPE OPERATOR 05/16/2024 8:26 PM STROBOSCOPE OPERATOR Landy Sawant MD LAB POCT ORDERABLES - DEVICE Final Result Performing Organization Address [facility] de Phone Number [facility] [place] [address] * (ABNORMAL) CBC without differential (05/16/2024 8:26 PM STROBOSCOPE OPERATOR) [facility] WBC 14.3(H) 3.8 - 9.9 K/cumm Hgb 10.2(L) 11.9 - 15.5 g/dL [facility] Hct 30.8(L) 35.6 - 45.5 % [facility] Plt 268 150 - 400 K/cumm [facility] MPV 10.4 9.1 - 12.3 fL [facility] RBC 3.22(L) 3.90 - 5.20 M/cumm [facility] MCV 95.7 81.3 - 96.4 fL [facility] MCH 31.7 27.1 - 33.3 pg [facility] MCHC 33.1 32.3 - 35.7 g/dL [facility] RDW CV 14.1 11.1 - 14.9 % [facility] RDW SD 49.5(H) 35.7 - 48.1 fL [facility] NRBC abs 0.00 0.00 - 0.01 K/cumm [facility] Blood 05/16/2024 8:26 PM STROBOSCOPE OPERATOR 05/16/2024 8:43 PM STROBOSCOPE OPERATOR Result [facility] Landy Sawant MD LAB BLOOD ORDERABLES F inal Result Performing Organization Address [facility] Co de Phone Number [facility] [place] [address] * Phosphorus (05/16/2024 8:26 PM STROBOSCOPE OPERATOR) Pathologist [facility] Phosphorus, pl 3.9 2.3 - 4.5 mg/dL Blood 05/16/2024 8:26 PM STROBOSCOPE OPERATOR 05/16/2024 8:43 PM STROBOSCOPE OPERATOR Result [facility] Landy Sawant MD LAB BLOOD ORDERABLES F inal Result Performing Organization Address [facility] Co de Phone Number [facility] [place] [address] * Magnesium (05/16/2024 8:26 PM STROBOSCOPE OPERATOR) [facility] Magnesium 2.5 1.4 - 2.5 mg/dL Blood 05/16/2024 8:26 PM STROBOSCOPE OPERATOR 05/16/2024 8:43 PM STROBOSCOPE OPERATOR Result [facility] Landy Sawant MD LAB BLOOD ORDERABLES F inal Result Performing Organization Address [facility] Co de Phone Number [facility] [place] [address] * (ABNORMAL) Basic metabolic panel (05/16/2024 8:26 PM STROBOSCOPE OPERATOR) Pathologist [facility] Sodium 130(L) 135 - 145 mmol/L Potassium, pl 5.1(H) 3.3 - 4.9 mmol/L [facility] Comment:Hemolyzed; Potassium value may be falsely elevated by as much as 0.3-0.5 mmol/L. Suggest redraw and reanalysis. Chloride 98 97 - 110 mmol/L [facility] CO2 21(L) 22 - 32 mmol/L [facility] Anion gap 11 2 - 15 mmol/L [facility] BUN 49(H) 6 - 25 mg/dL [facility] Creatinine 1.43(H) 0.60 - 1.10 mg/dL [facility] Glucose 139 70 - 199 mg/dL [facility] Comment: Interpretive Data Fasting [...] classification and Diagnosis of Diabetes Diabetes Care 202; 46: S19-S40. Current interpretive data was last revised 2022. Calcium 8.3(L) 8.5 - 10.3 mg/dL [facility] Blood 05/16/2024 8:26 PM STROBOSCOPE OPERATOR 05/16/2024 8:43 PM STROBOSCOPE OPERATOR Landy Sawant MD LAB BLOOD ORDERABLES F inal Result [facility] Department [place] [address] * POCT glucose (05/16/2024 6:10 PM STROBOSCOPE OPERATOR) [facility] Glucose, POC 161 70 - 199 mg/dL Blood 05/16/2024 6:10 PM STROBOSCOPE OPERATOR 05/16/2024 6:10 PM STROBOSCOPE OPERATOR Landy Sawant MD LAB POCT ORDERABLES - DEVICE Final Result Performing Organization Address [facility] Co de Phone Number [facility] [place] [address] * POCT glucose (05/16/2024 1:34 PM STROBOSCOPE OPERATOR) Glucose, POC 163 70 - 199 mg/dL Blood 05/16/2024 1:34 PM STROBOSCOPE OPERATOR 05/16/2024 1:34 PM STROBOSCOPE OPERATOR Landy Sawant MD LAB POCT ORDERABLES - DEVICE Final Result Performing Organization Address [facility] Co de Phone Number [facility] [place] [address] * US Carotids Duplex Bilateral (05/16/2024 1:16 PM STROBOSCOPE OPERATOR) Anatomical Region Laterality Modality Vascular Bilateral Ultrasound 05/16/2024 11:5 7 AM STROBOSCOPE OPERATOR Narrative 05/18/2024 12:28 AM STROBOSCOPE OPERATOR [facility] - Department of Vascular Surgery, Vascular Laboratory [address] [place] [id number] Carotid Duplex Ultrasound Report Patient Name: PATRICIA VALDEZ : 1940 (83y 10m) Study Date: 05/16/2024 11:57:01 AM Gender: F Tech: MS Location: [id number] Ref Provider: LANDY SAWANT Quality: Adequate Order [...] PSV ?60 cm/sec - ?? FINDINGS: Performing Supervisor Blood Donor Recruiters: Batsheva Kohli RVT. Rt Common Carotid Artery: [...] Nii Wilson MD FACS 05/18/2024 12:27:58 AM STROBOSCOPE OPERATOR Procedure Note Nii Wilson MD - 05/18/2024 [facility] - Department of Vascular Surgery,Vascular Laboratory [address] [place] [address] Carotid Duplex Ultrasound Report Patient Name: PATRICIA VALDEZ : 1940 (83y 10m) Study Date: 05/16/2024 11:57:01 AM Gender: F Tech: IA Location: [id number] Ref Provider: LANDY SAWANT Quality: Adequate Order [...] RT VERT PSV 60cm/sec - FINDINGS: Performing Supervisor Blood Donor Recruiters: Batsheva Kohli RVT. Rt Common Carotid Artery: [...] Nii Wilson MD FACS 05/18/2024 12:27:58 AM STROBOSCOPE OPERATOR Landy Sawant MD IMG US PROCEDURES Chanelle l Result * POCT glucose (05/16/2024 8:21 AM STROBOSCOPE OPERATOR) Glucose, POC 138 70 - 199 mg/dL Blood 05/16/2024 8:21 AM STROBOSCOPE OPERATOR 05/16/2024 8:21 AM STROBOSCOPE OPERATOR Landy Sawant MD LAB POCT ORDERABLES - DEVICE Final Result Performing Organization Address City/State/[facility] Co de Phone Number [facility] Department [place] [address] * (ABNORMAL) eGFR (05/15/2024 9:06 PM STROBOSCOPE OPERATOR) eGFR 35(L) >=60 mL/min/1. 73 m2 Comment: [...] last reviewed 2021. Blood 05/15/2024 9:06 PM STROBOSCOPE OPERATOR 05/15/2024 9:34 PM STROBOSCOPE OPERATOR us Landy Sawant MD LAB BLOOD ORDERABLES F inal Result [facility] Department [place] [address] * (ABNORMAL) CBC without differential (05/15/2024 9:06 PM STROBOSCOPE OPERATOR) WBC 14.8(H) 3.8 - 9.9 K/cumm Hgb 10.8(L) 11.9 - 15.5 g/dL [facility] Hct 33.0(L) 35.6 - 45.5 % [facility] Plt 224 150 - 400 K/cumm [facility] MPV 9.9 9.1 - 12.3 fL [facility] RBC 3.44(L) 3.90 - 5.20 M/cumm [facility] MCV 95.9 81.3 - 96.4 fL [facility] MCH 31.4 27.1 - 33.3 pg [facility] MCHC 32.7 32.3 - 35.7 g/dL [facility] RDW CV 14.1 11.1 - 14.9 % [facility] RDW SD 50.0(H) 35.7 - 48.1 fL [facility] NRBC abs 0.00 0.00 - 0.01 K/cumm [facility] Blood 05/15/2024 9:06 PM STROBOSCOPE OPERATOR 05/15/2024 9:29 PM STROBOSCOPE OPERATOR Landy Sawant MD LAB BLOOD ORDERABLES F inal Result Performing Organization Address [facility] Co de Phone Number [facility] [place] [address] * Phosphorus (05/15/2024 9:06 PM STROBOSCOPE OPERATOR) [facility] Phosphorus, pl 3.7 2.3 - 4.5 mg/dL Blood 05/15/2024 9:06 PM STROBOSCOPE OPERATOR 05/15/2024 9:34 PM STROBOSCOPE OPERATOR Result [facility] Landy Sawant MD LAB BLOOD ORDERABLES F inal Result Performing Organization Address [facility] de Phone Number [facility] [place] [address] * Magnesium (05/15/2024 9:06 PM STROBOSCOPE OPERATOR) [facility] Magnesium 2.3 1.4 - 2.5 mg/dL Blood 05/15/2024 9:06 PM STROBOSCOPE OPERATOR 05/15/2024 9:34 PM STROBOSCOPE OPERATOR Result [facility] Landy Sawant MD LAB BLOOD ORDERABLES F inal Result Performing Organization Address [facility] Co de Phone Number [facility] [place] [address] * (ABNORMAL) Basic metabolic panel (05/15/2024 9:06 PM STROBOSCOPE OPERATOR) [facility] Sodium 137 135 - 145 mmol/L Potassium, pl 5.1(H) 3.3 - 4.9 mmol/L [facility] Chloride 103 97 - 110 mmol/L [facility] CO2 22 22 - 32 mmol/L [facility] Anion gap 12 2 - 15 mmol/L [facility] BUN 50(H) 6 - 25 mg/dL [facility] Creatinine 1.50(H) 0.60 - 1.10 mg/dL [facility] Glucose 164 70 - 199 mg/dL [facility] Comment: Interpretive Data Fasting [...] 2022. Calcium 8.7 8.5 - 10.3 mg/dL [facility] Blood 05/15/2024 9:06 PM STROBOSCOPE OPERATOR 05/15/2024 9:34 PM STROBOSCOPE OPERATOR Landy Sawant MD LAB BLOOD ORDERABLES F inal Result [facility] [place] [address] * POCT glucose (05/15/2024 8:48 PM STROBOSCOPE OPERATOR) Glucose, POC 162 70 - 199 mg/dL Blood 05/15/2024 8:48 PM STROBOSCOPE OPERATOR 05/15/2024 8:48 PM STROBOSCOPE OPERATOR Landy Sawant MD LAB POCT ORDERABLES - DEVICE Final Result [facility] [place] [address] * POCT glucose (05/15/2024 5:34 PM STROBOSCOPE OPERATOR) Glucose, POC 138 70 - 199 mg/dL Blood 05/15/2024 5:34 PM STROBOSCOPE OPERATOR 05/15/2024 5:34 PM STROBOSCOPE OPERATOR Result [facility] Landy Sawant MD LAB POCT ORDERABLES - DEVICE Final Result Performing Organization Address [facility] de Phone Number [facility] [place] [address] * POCT glucose (05/15/2024 12:51 PM STROBOSCOPE OPERATOR) Glucose, POC 138 70 - 199 mg/dL Blood 05/15/2024 12:5 1 PM STROBOSCOPE OPERATOR 05/15/2024 12:51 PM STROBOSCOPE OPERATOR Result [facility] Landy Sawant MD LAB POCT ORDERABLES - DEVICE Final Result Performing Organization Address [facility] de Phone Number [facility] Department [place] [address] * (ABNORMAL) POCT glucose (05/15/2024 7:55 AM STROBOSCOPE OPERATOR) Glucose, POC 276(H) 70 - 199 mg/dL Blood 05/15/2024 7:55 AM STROBOSCOPE OPERATOR 05/15/2024 7:55 AM STROBOSCOPE OPERATOR Result [facility] Landy Sawant MD LAB POCT ORDERABLES - DEVICE Final Result Performing Organization Address [facility] de Phone Number [facility] [place] [address] * (ABNORMAL) Potassium, whole blood (05/14/2024 11:06 PM STROBOSCOPE OPERATOR) Potassium, bld 5.0(H) 3.3 - 4.9 mmol/L Blood 05/14/2024 11:0 6 PM STROBOSCOPE OPERATOR 05/14/2024 11:18 PM STROBOSCOPE OPERATOR Landy Sawant MD LAB BLOOD ORDERABLES F inal Result Performing Organization Address [facility] Co de Phone Number [facility] [place] [address] * (ABNORMAL) eGFR (05/14/2024 9:02 PM STROBOSCOPE OPERATOR) eGFR 31(L) >=60 mL/min/1. 73 m2 Comment: [...] last reviewed 2021. Blood 05/14/2024 9:02 PM STROBOSCOPE OPERATOR 05/14/2024 9:24 PM STROBOSCOPE OPERATOR Landy Sawant MD LAB BLOOD ORDERABLES F inal Result Performing Organization Address [facility] Co de Phone Number [facility] Department [place] [address] * (ABNORMAL) CBC without differential (05/14/2024 9:02 PM STROBOSCOPE OPERATOR) Pathologist [facility] WBC 12.7(H) 3.8 - 9.9 K/cumm Hgb 11.8(L) 11.9 - 15.5 g/dL [facility] Hct 36.5 35.6 - 45.5 % [facility] Plt 221 150 - 400 K/cumm [facility] MPV 10.1 9.1 - 12.3 fL [facility] RBC 3.73(L) 3.90 - 5.20 M/cumm [facility] MCV 97.9(H) 81.3 - 96.4 fL [facility] MCH 31.6 27.1 - 33.3 pg [facility] MCHC 32.3 32.3 - 35.7 g/dL [facility] RDW CV 14.4 11.1 - 14.9 % [facility] RDW SD 52.1(H) 35.7 - 48.1 fL [facility] NRBC abs 0.00 0.00 - 0.01 K/cumm [facility] Blood 05/14/2024 9:02 PM STROBOSCOPE OPERATOR 05/14/2024 9:24 PM STROBOSCOPE OPERATOR Landy Sawant MD LAB BLOOD ORDERABLES F inal Result Performing Organization Address [facility] de Phone Number [facility] [place] [address] * (ABNORMAL) Phosphorus (05/14/2024 9:02 PM STROBOSCOPE OPERATOR) Pathologist [facility] Phosphorus, pl 5.1(H) 2.3 - 4.5 mg/dL Blood 05/14/2024 9:02 PM STROBOSCOPE OPERATOR 05/14/2024 9:24 PM STROBOSCOPE OPERATOR Landy Sawant MD LAB BLOOD ORDERABLES F inal Result Performing Organization Address [facility] Co de Phone Number [facility] Department [place] [address] * Magnesium (05/14/2024 9:02 PM STROBOSCOPE OPERATOR) Pathologist [facility] Magnesium 2.2 1.4 - 2.5 mg/dL Blood 05/14/2024 9:02 PM STROBOSCOPE OPERATOR 05/14/2024 9:24 PM STROBOSCOPE OPERATOR Landy Sawant MD LAB BLOOD ORDERABLES F inal Result [facility] Department [place] [address] * (ABNORMAL) Basic metabolic panel (05/14/2024 9:02 PM STROBOSCOPE OPERATOR) Pathologist [facility] Sodium 135 135 - 145 mmol/L Potassium, pl 5.1(H) 3.3 - 4.9 mmol/L [facility] Chloride 103 97 - 110 mmol/L [facility] CO2 20(L) 22 - 32 mmol/L [facility] Anion gap 12 2 - 15 mmol/L [facility] BUN 44(H) 6 - 25 mg/dL [facility] Creatinine 1.63(H) 0.60 - 1.10 mg/dL [facility] Glucose 183 70 - 199 mg/dL [facility] Comment: Interpretive Data Fasting [...] classification and Diagnosis of Diabetes Diabetes Care 202; 46: S19-S40. Current interpretive data was last revised 2022. Calcium 8.5 8.5 - 10.3 mg/dL [facility] Blood 05/14/2024 9:02 PM STROBOSCOPE OPERATOR 05/14/2024 9:24 PM STROBOSCOPE OPERATOR us Landy Sawant MD LAB BLOOD ORDERABLES F inal Result [facility] Department [place] [address] * POCT glucose (05/14/2024 6:10 PM STROBOSCOPE OPERATOR) Glucose, POC 148 70 - 199 mg/dL Blood 05/14/2024 6:10 PM STROBOSCOPE OPERATOR 05/14/2024 6:10 PM STROBOSCOPE OPERATOR Landy Sawant MD LAB POCT ORDERABLES - DEVICE Final Result Performing Organization Address [facility] Co de Phone Number [facility] Department [place] [address] * XR Pelvis 3 or More Views (05/14/2024 10:46 AM STROBOSCOPE OPERATOR) Anatomical Region Laterality Modality Pelvis, Body N/A Computed Radiogr aphy 05/14/2024 11:1 9 AM STROBOSCOPE OPERATOR Impressions 05/14/2024 11:19 AM STROBOSCOPE OPERATOR There are fractures of the right superior and inferior pubic ramus as well as the right sacral ala. ??Contrast is noted within the urinary bladder. No definite extraluminal contrast. ??If there is concern for bladder injury, consider CT cystogram. Electronically signed by: Kendal Braun M.D. Narrative 05/14/2024 11:19 AM STROBOSCOPE OPERATOR EXAMINATION: XR PELVIS 3 OR MORE VIEWS [...] Respiratory pathogen panel Nasopharyngeal (05/14/2024 10:15 AM STROBOSCOPE OPERATOR) Pathologist [facility] Influenza A RNA Not Detected Not Detected Influenza B RNA Not Detected Not Detected [facility] RSV RNA Not Detected Not Detected [facility] COVID-19 RNA Not Detected Not Detected [facility] Coronavirus 229E RNA Not Detected Not Detected [facility] Coronavirus HKU1 RNA Not Detected Not Detected [facility] Coronavirus NL63 RNA Not Detected Not Detected [facility] Coronavirus OC43 RNA Not Detected Not Detected [facility] Adenovirus DNA Not Detected Not Detected [facility] Metapneumovirus RNA Not Detected Not Detected [facility] Rhinovirus/Enterov irus RNA Detected(A) Not Detected [facility] Parainfluenza 1 RNA Not Detected Not Detected [facility] Parainfluenza 2 RNA Not Detected Not Detected [facility] Parainfluenza 3 RNA Not Detected Not Detected [facility] Parainfluenza 4 RNA Not Detected Not Detected [facility] B. pertussis DNA Not Detected Not Detected [facility] B. parapertussis DNA Not Detected Not Detected [facility] C. pneumoniae DNA Not Detected Not Detected [facility] M. pneumoniae DNA Not Detected Not Detected [facility] Nasopharyngeal 05/14/2024 10 :15 AM STROBOSCOPE OPERATOR 05/14/2024 10:43 AM STROBOSCOPE OPERATOR Narrative [facility] - 05/14/2024 11:35 AM STROBOSCOPE OPERATOR Is the Patient experiencing symptoms consistent with COVID?->Yes Surveillance testing for transplant patient?->No ??Interpretive Data The Taptu FilmArray Respiratory Panel (RP2.1) assay is a [...] assay has FDA clearance for testing of CRACKER SPRAYER swabs. ??The performance of additional specimen types has been assessed by the performing laboratory. ??The performance characteristics of this assay have been determined by [facility]. Current interpretive data was last revised on 22. us Frandy Ferreira MD LAB MICROBIOLOGY - GENERAL ORDERABLES Final Result [facility] Department [place] [address] * CT Body Outside Reference (05/14/2024 10:12 AM STROBOSCOPE OPERATOR) Impressions [facility] - 05/14/2024 10:12 AM STROBOSCOPE OPERATOR These images are for Reference purposes only and have not been reviewed by [facility] Radiology. ??There will be no report generated by a [facility] Radiologist. Narrative [facility] - 05/14/2024 10:12 AM STROBOSCOPE OPERATOR EXAMINATION: ??Images For Reference Purposes Only us Frandy Ferreira MD IMG CT PROCEDURES Final Re sult Performing Organization Address [facility]/ZIP Co de Phone Number [email or web address] * (ABNORMAL) Urinalysis reflex to microscopic and culture Urine (05/14/2024 10:12 AM STROBOSCOPE OPERATOR) Color, ur Straw Yellow Clarity, ur Cloudy(A) Clear [facility] Specific gravity, ur 1.014 1.003 - 1.030 [facility] pH, urine 6.0 [facility] Comment: Interpretive Data ? Urine pH is affected by diet, medications, systemic acid-base disturbances, and renal tubular function. ??pH may affect urinary stone formation. ??For example, urine pH below 6.0 may help reduce the tendency for calcium phosphate stones and pH greater than 6.0 may reduce the tendency for uric acid stone formation. Source: [facility] Current Interpretive Data was last revised on 2017 Protein, ur ql Negative Negative [facility] Glucose, ur ql Negative Negative [facility] Ketones, ur Negative Negative [facility] Bilirubin, ur Negative Negative [facility] Blood, ur Negative Negative [facility] Urobilinogen, ur <2.0 <2.0 mg/dL [facility] Nitrite, ur Negative Negative [facility] [facility] Leukocyte esterase, ur 3+(A) Negative CERNER [facility] UA reflex comment Reflex to microscopic UA will be performed. [facility] Urine 05/14/2024 10:1 2 AM STROBOSCOPE OPERATOR 05/14/2024 10:17 AM STROBOSCOPE OPERATOR us Alexis Sawyer MD LAB MICROBIOLOGY - GEN ERAL ORDERABLES Final Result Performing Organization Address City/[facility]/ZIP Co de Phone Number [facility] [place] [address] * (ABNORMAL) Urinalysis, microscopic only (05/14/2024 10:12 AM STROBOSCOPE OPERATOR) WBC, ur >50(A) 0 - 5 /HPF RBC, ur 11-20(A) 0 - 2 /HPF [facility] Epithelial cells, squamous, ur 1-5 0 - 5 /HPF [facility] Bacteria, ur 1+(A) [facility] Culture Reflex Comment Reflex to urine culture will be performed. [facility] Urine 05/14/2024 10:1 2 AM STROBOSCOPE OPERATOR 05/14/2024 10:17 AM STROBOSCOPE OPERATOR Alexis Sawyer MD LAB URINE ORDERABLES F inal Result [facility] Department [place] [address] * (ABNORMAL) Urine culture Urine (05/14/2024 10:12 AM STROBOSCOPE OPERATOR) Report Final Report: Greater than or equal to 100,000 colonies/mL of Klebsiella pneumoniae (.) Organism KLEBSIELLA PNEUMONIAE [facility] Urine 05/14/2024 10:1 2 AM STROBOSCOPE OPERATOR 05/14/2024 5:03 PM STROBOSCOPE OPERATOR Narrative [facility] - 05/16/2024 12:42 PM STROBOSCOPE OPERATOR Urine culture reflexed based upon urinalysis results. Testing performed by [facility] ([phone]) Organism Antibiotic Method Susceptibility Klebsiella pneumoniae Ampicillin [...] MICROBIOLOGY - GEN ERAL ORDERABLES Final Result [facility] Department [place] [address] * XR Chest 1 Vw Portable (05/14/2024 7:22 AM STROBOSCOPE OPERATOR) Anatomical Region Laterality Modality Body, Chest N/A Computed Radiogr aphy 05/14/2024 9:44 AM STROBOSCOPE OPERATOR Impressions 05/14/2024 10:36 AM STROBOSCOPE OPERATOR No prior examinations available for comparison. Correlation [...] Kendal Braun M.D. Narrative 05/14/2024 10:36 AM STROBOSCOPE OPERATOR EXAMINATION: 1 view chest radiograph Procedure Note [...] Result * Check Sample (05/14/2024 6:48 AM STROBOSCOPE OPERATOR) ABO Rh O Positive [facility] OTHER 05/14/2024 6:48 AM STROBOSCOPE OPERATOR 05/14/2024 6:55 AM STROBOSCOPE OPERATOR Kenneth Vallecillo MD LAB BLOOD ORDERABLES Final Re sult [facility] Department [place] [address] [facility] * Neuro CT Outside Consult (05/14/2024 6:09 AM STROBOSCOPE OPERATOR) Anatomical Region Laterality Modality N/A Computed Tomogra phy 05/14/2024 6:35 AM STROBOSCOPE OPERATOR Impressions 05/14/2024 9:34 AM STROBOSCOPE OPERATOR No acute cervical spine fracture. The findings, conclusions and recommendations within this report do not replace the initial findings, conclusions ??and recommendations made at the facility where the study was performed based upon the imaging and clinical condition at that time. ??Comparison with the prior report and clinical history is necessary. ??The provided images may or may not represent the [place] source data set and thus may contain changes that may lower the accuracy of this second-opinion interpretation. Dictated by: Virgilio Dempsey MD The radiology attending physician has personally reviewed this study, and had reviewed and/or edited this written report and agrees with it. Electronically signed by: Evelyne Saleh M.D. Narrative 05/14/2024 9:34 AM STROBOSCOPE OPERATOR EXAMINATION: RADIOLOGY CONSULTATION ON OUTSIDE IMAGING STUDY [...] images may or may not represent the [place] source data set and thus may contain changes that may lower the accuracy of this second-opinion interpretation. Dictated by: Virgilio Dempsey MD The radiology attending physician has personally reviewed this study, and had reviewed and/or edited this written report and agrees with it. Electronically signed by: Evelyne Saleh M.D. Alexis Sawyer MD IMG CT PROCEDURES Chanelle l Result * Neuro CT Outside Reference (05/14/2024 6:04 AM STROBOSCOPE OPERATOR) Impressions [facility] - 05/14/2024 6:04 AM STROBOSCOPE OPERATOR These images are for Reference purposes only and have not been reviewed by [facility]. ??There will be no report generated by a [facility] Radiologist. Narrative [facility] - 05/14/2024 6:04 AM STROBOSCOPE OPERATOR EXAMINATION: ??Images For Reference Purposes Only Alexis Sawyer MD IMG CT PROCEDURES Chanelle l Result [facility] * CT Body Outside Consult (05/14/2024 5:59 AM STROBOSCOPE OPERATOR) Anatomical Region Laterality Modality Body N/A Computed Tomogra phy 05/14/2024 6:16 AM STROBOSCOPE OPERATOR Impressions 05/14/2024 10:03 AM STROBOSCOPE OPERATOR This study was initially nominated as a consult on outside images via Outside Image Sharing Service. However, a consult was not performed because no images were included in the packet. ??If interpretation is desired, uploaded images appropriately and resubmitted for consultation. Accordingly, there will be no separate report of this study generated by a [facility] Radiologist. Dictated by: Kavitha Ba MD The radiology attending physician has personally reviewed this study, and had reviewed and/or edited this written report and agrees with it. Electronically signed by: Kendal Braun M.D. Narrative 05/14/2024 10:03 AM STROBOSCOPE OPERATOR EXAMINATION: ??CHANGE CONSULT ON OUTSIDE IMAGES TO [...] report of this study generated by a [facility] Radiologist. Dictated by: Kavitha Ba MD The radiology attending physician has personally reviewed this study, and had reviewed and/or edited this written report and agrees with it. Electronically signed by: Kendal Braun M.D. Alexis Sawyer MD IMG CT PROCEDURES Chanelle l Result * XR Outside Reference (05/14/2024 5:56 AM STROBOSCOPE OPERATOR) Impressions [facility] - 05/14/2024 5:56 AM STROBOSCOPE OPERATOR These images are for Reference purposes only and have not been reviewed by [facility]. ??There will be no report generated by a [facility] Radiologist. Narrative [facility] - 05/14/2024 5:56 AM STROBOSCOPE OPERATOR EXAMINATION: ??Images For Reference Purposes Only Result [facility] Alexis Sawyer MD IMG XR PROCEDURES Chanelle l Result Performing Organization Address [facility] Co de Phone Number [facility] * XR Outside Reference (05/14/2024 5:48 AM STROBOSCOPE OPERATOR) Impressions [facility] - 05/14/2024 5:48 AM STROBOSCOPE OPERATOR These images are for Reference purposes only and have not been reviewed by [facility]. ??There will be no report generated by a [facility] Radiologist. Narrative [facility] - 05/14/2024 5:48 AM STROBOSCOPE OPERATOR EXAMINATION: ??Images For Reference Purposes Only Alexis Sawyer MD IMG XR PROCEDURES Chanelle l Result [facility] * CT Body Outside Reference (05/14/2024 5:46 AM STROBOSCOPE OPERATOR) Impressions [facility] - 05/14/2024 5:46 AM STROBOSCOPE OPERATOR These images are for Reference purposes only and have not been reviewed by [facility]. ??There will be no report generated by a [facility] Radiologist. Narrative [facility] - 05/14/2024 5:46 AM STROBOSCOPE OPERATOR EXAMINATION: ??Images For Reference Purposes Only Alexis Sawyer MD IMG CT PROCEDURES Chanelle l Result Performing Organization Address [facility] de Phone Number [facility] * Neuro CT Outside Reference (05/14/2024 5:44 AM STROBOSCOPE OPERATOR) Impressions [facility] - 05/14/2024 5:44 AM STROBOSCOPE OPERATOR These images are for Reference purposes only and have not been reviewed by [facility]. ??There will be no report generated by a [facility] Radiologist. Narrative [facility] - 05/14/2024 5:44 AM STROBOSCOPE OPERATOR EXAMINATION: ??Images For Reference Purposes Only Alexis Sawyer MD IMG CT PROCEDURES Chanelle l Result Performing Organization Address [facility] de Phone Number [facility] * (ABNORMAL) eGFR (05/14/2024 5:35 AM STROBOSCOPE OPERATOR) eGFR 42(L) >=60 mL/min/1. 73 m2 Comment: [...] last reviewed 2021. Blood 05/14/2024 5:35 AM STROBOSCOPE OPERATOR 05/14/2024 5:51 AM STROBOSCOPE OPERATOR us Alexis Sawyer MD LAB BLOOD ORDERABLES F inal Result [facility] Department [place] [address] * (ABNORMAL) Differential, auto (05/14/2024 5:35 AM STROBOSCOPE OPERATOR) Neutrophil abs 15.6(H) 1.5 - 6.5 K/cumm Imm gran abs 0.1 0.0 - 0.1 K/cumm [facility] Lymphocyte abs 1.6 0.8 - 3.3 K/cumm [facility] Monocyte abs 1.4(H) 0.2 - 0.8 K/cumm [facility] Eosinophil abs 0.1 0.0 - 0.5 K/cumm [facility] Basophil abs 0.1 0.0 - 0.1 K/cumm [facility] Neutrophil pct 83.1 % [facility] Comment: Interpretive Data Percent cell count reference ranges are not reported, since discordance with absolute values may lead to misinterpretation of CBC data. Current Interpretive Data was last revised on 2017. Imm gran pct 0.6 % [facility] Comment: Interpretive Data Percent cell count reference ranges are not reported, since discordance with absolute values may lead to misinterpretation of CBC data. Current Interpretive Data was last revised on 2017. Lymphocyte pct 8.3 % [facility] Comment: Interpretive Data Percent cell count reference ranges are not reported, since discordance with absolute values may lead to misinterpretation of CBC data. Current Interpretive Data was last revised on 2017. Monocyte pct 7.2 % [facility] Comment: Interpretive Data Percent cell count reference ranges are not reported, since discordance with absolute values may lead to misinterpretation of CBC data. Current Interpretive Data was last revised on 2017. Eosinophil pct 0.3 % [facility] Comment: Interpretive Data Percent cell count reference ranges are not reported, since discordance with absolute values may lead to misinterpretation of CBC data. Current Interpretive Data was last revised on 2017. Basophil pct 0.5 % [facility] Comment: Interpretive Data Percent cell count reference ranges are not reported, since discordance with absolute values may lead to misinterpretation of CBC data. Current Interpretive Data was last revised on 2017. Blood 05/14/2024 5:35 AM STROBOSCOPE OPERATOR 05/14/2024 6:20 AM STROBOSCOPE OPERATOR us Alexis Sawyer MD LAB BLOOD ORDERABLES F inal Result [facility] Department [place] [address] * (ABNORMAL) CBC with auto differential (05/14/2024 5:35 AM STROBOSCOPE OPERATOR) WBC 18.8(H) 3.8 - 9.9 K/cumm Hgb 12.6 11.9 - 15.5 g/dL [facility] Hct 38.6 35.6 - 45.5 % [facility] Plt 274 150 - 400 K/cumm [facility] MPV 9.8 9.1 - 12.3 fL [facility] RBC 3.96 3.90 - 5.20 M/cumm [facility] MCV 97.5(H) 81.3 - 96.4 fL [facility] MCH 31.8 27.1 - 33.3 pg [facility] MCHC 32.6 32.3 - 35.7 g/dL [facility] RDW CV 14.2 11.1 - 14.9 % [facility] RDW SD 51.6(H) 35.7 - 48.1 fL [facility] NRBC abs 0.00 0.00 - 0.01 K/cumm [facility] Blood 05/14/2024 5:35 AM STROBOSCOPE OPERATOR 05/14/2024 6:20 AM STROBOSCOPE OPERATOR Alexis Sawyer MD LAB BLOOD ORDERABLES F inal Result Performing Organization Address [facility] de Phone Number [facility] Department [place] [address] * aPTT (05/14/2024 5:35 AM STROBOSCOPE OPERATOR) aPTT 32 28 - 38 sec Comment: Interpretive Data Heparin therapeutic range: 66.0 - 100.0 seconds. Range based on correlation with therapeutic heparin activity range of 0.3 - 0.7 Units/mL. Current interpretive data was last revised on 2023. Blood 05/14/2024 5:35 AM STROBOSCOPE OPERATOR 05/14/2024 5:57 AM STROBOSCOPE OPERATOR Alexis Sawyer MD LAB BLOOD ORDERABLES F inal Result Performing Organization Address [facility] [place] [address] * Protime-INR (05/14/2024 5:35 AM STROBOSCOPE OPERATOR) PT 12.2 9.7 - 13.0 sec INR 1.13 0.90 - 1.20 [facility] Comment: Interpretive data Oral anticoagulant therapeutic ranges: Venous thromboembolism prophylaxis or treatment: 2.0-3.0 CARDIOLOGY Standard range: 2.0-3.0 High-intensity range: 2.5-3.5 Refer to indication-specific guidelines for appropriate target ranges for prosthetic heart valve replacement. Current interpretive data was last revised on 2019. Blood 05/14/2024 5:35 AM STROBOSCOPE OPERATOR 05/14/2024 5:57 AM STROBOSCOPE OPERATOR Result [facility] Alexis Sawyer MD LAB BLOOD ORDERABLES F inal Result Performing Organization Address [facility] de Phone Number [facility] Department [place] [address] * Type and screen (05/14/2024 5:35 AM STROBOSCOPE OPERATOR) Trey, indirect Negative ABO Rh O Positive [facility] Blood 05/14/2024 5:35 AM STROBOSCOPE OPERATOR 05/14/2024 5:45 AM STROBOSCOPE OPERATOR Narrative [facility] - 05/14/2024 6:53 AM STROBOSCOPE OPERATOR Has the patient had Daratumumab or Isatuximab in the past 6 months?->Unknown Alexis Sawyer MD LAB BLOOD BANK TEST OR DERABLES Final Result [facility] Department [place] [address] * (ABNORMAL) Comprehensive metabolic panel (05/14/2024 5:35 AM STROBOSCOPE OPERATOR) Pathologist [facility] Sodium 134(L) 135 - 145 mmol/L Potassium, pl 4.7 3.3 - 4.9 mmol/L [facility] Chloride 101 97 - 110 mmol/L [facility] CO2 23 22 - 32 mmol/L [facility] Anion gap 10 2 - 15 mmol/L [facility] BUN 34(H) 6 - 25 mg/dL [facility] Creatinine 1.29(H) 0.60 - 1.10 mg/dL [facility] Glucose 149 70 - 199 mg/dL [facility] Comment: Interpretive Data Fasting [...] classification and Diagnosis of Diabetes Diabetes Care 202; 46: S19-S40. Current interpretive data was last revised 2022. Calcium 8.8 8.5 - 10.3 mg/dL [facility] Bilirubin, total 0.7 0.1 - 1.2 mg/dL [facility] Protein, pl 7.3 6.5 - 8.5 g/dL [facility] Albumin 3.9 3.5 - 5.0 g/dL [facility] Alk phos 134(H) 40 - 130 Units/L [facility] ALT 29 7 - 45 Units/L [facility] AST 39 10 - 45 Units/L [facility] Blood 05/14/2024 5:35 AM STROBOSCOPE OPERATOR 05/14/2024 5:51 AM STROBOSCOPE OPERATOR us Alexis Sawyer MD LAB BLOOD ORDERABLES F inal Result [facility] Department [place] [address] from Last 3 Months Insurance MEDICARE [employer] [facility] MEDICARE [employer] [address] [facility] Advance Directives For more information, please contact: [phone] Documents on File Type Date Recorded Patient Label Remover Expl anation ADVANCE DIRECTIVE 05/17/2024 1:13 PM POLS T * Full Code (Latest Code Status on File) Date Activated Date Inactivated Comments 05/14/2024 5:58 PM 05/20/2024 11:11 PM Care Teams Care Associate Relationship Specialty Start Date End Date Cedric Nguyen MD [address] [place], [place] [id number] PCP - General 09/17/16
--- OUTSIDE RECORDS SUMMARY | 2024-05-24 20:20 | XMS_ITS | Encounter Summary ---
Author Organization [facility] Address [address] [place] [address] Phone Care Team Providers Care Custody Officer Name Role Phone Cedric Nguyen MD Primary Care Provide r Encounter Details Date Type Department Care Team (Late st Contact Info) Description 08/29/2021 Telephone [facility] [address] [place] [address] Fanta Coburn Social History Tobacco Use Types Packs/Day Years Used Date Smoking Tobacco: Never Comments Unknown Sex and Gender Information Value Date Recorded Sex Assigned at Not on file Legal Sex Female 8:04 AM CDT Gender Identity Not on file Sexual Orientation Not on file documented as of this encounter Miscellaneous Notes * Telephone Encounter - Fanta Coburn - 08/29/2021 6:06 PM CDT This CC rec'd call from Laura, who stated, I can't do this anymore. I feel like a prisoner in my own life. She stated she has decided to place her mom in a care community. She'd like resources from this CC. This CC sent Laura the following email: When we were talking on the phone, I had forgotten that your mother owns rental properties. In terms of Medicaid eligibility, that makes her situation more complicated. If she makes enough income from her property to pay the monthly fee at the fdc community, then it's not an issue. The challenge will be if she doesn't make enough to pay the monthly fees--and in that case, I would recommendyou talk with an elder law mercury recoverer about what the best plan of action would be. Similarly, the value of the properties may put your mother over the Medicaid limit for assets. Different states have different rules about rental property, so this, also, would be a question for an elder law mercury recoverer. And again, if your mom doesn't need Medicaid to afford the monthly fees, this isn't an issue--it's only if she needs Medicaid. Since you mentioned that you'd been saving money for expenses, it may be a good idea to consider purchasing a pre-paid /burial plan. These are exempt from being counted as an asset in determining Medicaid eligibility. In case it's helpful, I've attached a list of elder law attorneys in your area. I've also attached a list of care communities that have at least some Medicaid beds. If you're going to be placing her against her will, you'll need to be her durable power of mercury recoverer(DPOA) for healthcare. Depending on what kind of DPOA she has, you may also need letters from her doctors stating she can no longer make decisions for herself. If you need that, you can send Elana Benito a message through [employer] to ask about this. If you aren't her DPOA, you'll need to go through a court process to become her guardian. Another challenge is that I'm not sure your mother would stay in a care community willingly. If she's an elopement risk, she'll have to be in a memory care unit (a locked unit). That will be more expensive. Please let me know if you need any other information. documented in this encounter Plan of Treatment Not on file documented as of this encounter Visit Diagnoses Not on filedocumented in this encounter Care Teams Custody Officer Relationship Specialty Start Date End Date Cedric Nguyen MD [address] [place] [address] PCP - General 09/17/16 documented as of this encounter
--- OUTSIDE RECORDS SUMMARY | 2024-05-24 20:20 | XMS_ITS | Encounter Summary ---
Author Organization [facility] Address [address] [place] [address] Phone Care Team Providers Care Cras Name Role Phone Cedric Nguyen MD Primary Care Provide r Encounter Details Date Type Department Care Team (Late st Contact Info) Description 05/16/2024 6:50 AM ACCOUNTS ADMINISTRATOR Ancillary Procedure [facility] Vascular Lab IP [address] [place] [address] Social History Tobacco Use Types Packs/Day Years [...] Procedure Name Priority Date/Time Associated Diagnosis Comments US CAROTIDS DUPLEX BILATERAL IP Routine 05/16/2024 1:16 PM ACCOUNTS ADMINISTRATOR documented in this encounter Results * US Carotids Duplex Bilateral (05/16/2024 1:16 PM ACCOUNTS ADMINISTRATOR) Anatomical Region Laterality Modality Vascular Bilateral Ultrasound 05/16/2024 11:5 7 AM ACCOUNTS ADMINISTRATOR Narrative 05/18/2024 12:28 AM ACCOUNTS ADMINISTRATOR [facility] - Department of Vascular Surgery, Vascular Laboratory [address] [place] [id number] Carotid Duplex Ultrasound Report Patient Name: PATRICIA HAMLIN : 1940 (83y 10m) Study Date: 05/16/2024 11:57:01 AM Gender: F Tech: SD Location: [id number] Ref Provider: LANDY SAWANT Quality: Adequate Order [...] PSV ?60 cm/sec - ?? FINDINGS: Performing Renal Dialysis Rn: Batsheva Kohli RVT. Rt Common Carotid Artery: [...] above. Electronically Signed By: Nii Wilson MD [facility] 05/18/2024 12:27:58 AM ACCOUNTS ADMINISTRATOR Procedure Note Nii Wilson MD - 05/18/2024 [facility] - Department of Vascular Surgery,Vascular Laboratory [address] [place] [id number] Carotid Duplex Ultrasound Report Patient Name: PATRICIA HAMLIN : 1940 (83y 10m) Study Date: 05/16/2024 11:57:01 AM Gender: F Tech: [place] Location: [id number] Ref Provider: LANDY SAWANT Quality: Adequate Order [...] RT VERT PSV 60cm/sec - FINDINGS: Performing Renal Dialysis Rn: Batsheva Kohli RVT. Rt Common Carotid Artery: [...] Nii Wilson MD FACS 05/18/2024 12:27:58 AM ACCOUNTS ADMINISTRATOR Landy Sawant MD IMG US PROCEDURES Chanelle l Result documented in this encounter Visit Diagnoses Not on filedocumented in this encounter Additional Health Concerns Infection Onset Date Last Indicated Resolved Time Rhino/Enterovirus 05/14/2024 05/14/2024 05/21/2024 3:05 AM ACCOUNTS ADMINISTRATOR documented as of this encounter Care Teams Cras Relationship Specialty Start Date End Date Cedric Nguyen MD [address] [place] [address] PCP - General 09/17/16 documented as of this encounter
--- OUTSIDE RECORDS SUMMARY | 2024-05-24 20:20 | XMS_ITS | Encounter Summary ---
Author Organization [facility] Address [address] [place] [address] Phone Care Team Providers Care Marketing Regional Consultant Name Role Phone Cedric Nguyen MD Primary Care Provide r Encounter Details Date Type Department Care Team (Late st Contact Info) Description 08/29/[address] 6[address] [place] [address] Fanta Coburn Social History Tobacco Use Types Packs/Day Years Used Date Smoking Tobacco: Never Comments Unknown Sex and Gender Information Value Date Recorded Sex Assigned at Not on file Legal Sex Female 8:04 AM CDT Gender Identity Not on file Sexual Orientation Not on file documented as of this encounter Progress Notes * Fanta Coburn - 08/29/2021 5:58 PM CDT On 08/27/21 This CC conducted in-person care consultation w/Laura Park at the [address] [facility] following referral by the nurse practitioner. She???s the PCG for her mother, Patricia Valdez, who has AD. Patricia lives w/Laura & Laura reported CG stress. She has a fiance who visits on the weekends & they take Patricia w/them wherever they go, so they don???t get any time alone. Patricia???s sister will sometimes help, but she? s just one yr younger than Patricia & she lives in [place] (over 1.5 hrs away), so she can???t help that often. Laura has a brother who isn???t helpful. 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 She leaves her mom alone sometimes. This CC suggested this is probably not safe anymore. (MMSE is 14& there have been some wandering incidents.) This CC recommended ADC during the week & in-home care on the weekends to allow Laura & her fiance some private time. Lists were provided. Action Plan: 1) Consider using an adult day program during the week so you don???t have to leave your mother home alone. List was provided. 2) Consider using in-home care on weekend/evenings so you & your fiance can have some private time. List was provided. documented in this encounter Plan of Treatment Not on file documented as of this encounter Visit Diagnoses Not on filedocumented in this encounter Care Teams Marketing Regional Consultant Relationship Specialty Start Date End Date Cedric Nguyen MD [address] [place] [address] PCP - General 09/17/16 documented as of this encounter
--- OUTSIDE RECORDS SUMMARY | 2024-05-24 20:20 | XMS_ITS | Encounter Summary ---
Author Organization [facility] Healthcare Address [address] [place] [address] Care Team Providers Care Service Delivery Manager Name Role Phone Cedric Nguyen MD Primary Care Provide r Reason for Visit * Reason Comments Fall * Auth/Cert (Routine) Specialty Diagnoses / Procedures Referred By Contac t Referred To Contact Diagnoses Hypoxia Rhinovirus Fall, initial encounter Pubic ramus fracture, right, open, initial encounter (HCC) fall, R pelvic fx-trauma level 3 Procedures NA Referral ID Status Reason Start Date Expiration Date Visits Re quested Visits Authorized [id number] 1 1 Encounter Details Date Type Department Care Team (Latest Contact Info) Description 05/14/2024 5:23 AM PROCESS TANK TENDER - 05/20/2024 6:45 PM PROCESS TANK TENDER Hospital Encounter [facility] [address] [place] [address] Kenneth Vallecillo MD [address] [place] [address] Bruno Davey MD [address] [place] [address] Raúl Sawant MD [address] [facility] [id number] [place] [address] Berto Olivas MD [address] [place] [address] Pubic ramus fracture, right, open, initial encounter (HCC) (Primary Dx); Fall, initial encounter; Hypoxia; Rhinovirus Discharge Disposition: Discharge to SNF Social History Tobacco Use Types Packs/Day Years Used Date Smoking Tobacco: Never Smokeless Tobacco: Never [facility] Utilities Answer Date Recorded In the past 12 months has e [facility], gas, oil, or water [employer] threatened to shut off services in your [...] often do you attend chur ch or confucianism services? Never 05/20/2024 Do you belong to any clubs o r organizations such as restorationism groups, unions, fraternal or athletic groups, or [...] any time in the past 12 m ont, were you homeless or living in a long-term (including now)? No 05/20/2024 Personal Safety Answer [...] Comments Blood Pressure 116/100 05/20/2024 5:11 PM PROCESS TANK TENDER Pulse 99 05/20/2024 5:11 PM PROCESS TANK TENDER Temperature 37.2 ??C (99 ??F) 05/20/2024 5:11 PM PROCESS TANK TENDER Respiratory Rate 20 05/20/2024 5:11 PM PROCESS TANK TENDER Oxygen Saturation 92% 05/20/2024 5:11 PM PROCESS TANK TENDER Inhaled Oxygen Concentration - - Weight 100.7 kg (222 lb) 05/16/2024 9:35 PM PROCESS TANK TENDER Height 163.8 cm (5' 4.5 ) 05/16/2024 9:35 PM PROCESS TANK TENDER Body Mass Index 37.52 05/16/2024 9:35 PM PROCESS TANK TENDER documented in this encounter Discharge Summaries * Ktahe Burnett NP - 05/20/2024 2:41 PM CST Images from the original note were not included. [facility] Trauma Service Inpatient Discharge Summary This is a clinical resume for patient Indy Valdez for attending Raúl Sawant,* Admission Date: 05/14/2024 Admitting Provider: Bruno Davey MD Discharge Date: 05/20/2024 Hospitalization: Total duration of encounter: 6 days Team: Acute Care Surgery Primary Care Provider: Cedric Nguyen MD History of Present Illness: GTS 83 y.o. year old female PMH of Alzheimer's Dementia, diabetes mellitus type 2, hypertension, dementia, presenting as an unwitnessed [facility] at [facility] night when getting up to go to the restroom. Villalta scan at outside hospital notable for right superior pubic rami fracture. Needs syncope workup Edited by: Raúl Antony, RN at 05/17/2024 1430 Discharge Diagnosis(es): No Principal Problem: There is no principal problem currently on the Problem List. Please update the Problem List and refresh. 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) Possible syncopal fall Discharge planning issues Acute pain UTI (urinary tract infection) Urinary retention Resolved Problems: No resolved hospital problems. Active Issues Requiring Follow Up: Orthopedic follow up scheduled Appointment: no follow up appointment needed , Anticoagulation: hip/pelvis/acetabulum fx; Eliquis 2.5mg BID x 4 weeks , and Followup with your primary care doctor for ongoing management of your chronic medical issues - [facility] has a primary care clinic that may be able to help if you don't have a primary care doctor - call [phone] to see if they can establish care. Hospital Course: Urinary retention Assessment & Plan 05/16 removed Briscoe- void check 05/17 noted agitation per nursing, and frequent incontinence, Bladder Scan 650 mL, Briscoe catheter placed UTI (urinary tract infection) Assessment & Plan 05/14 UA sent on admission, refluxed to CX 05/17 changed Cefepime to Keflex PO x 5 days (05/17-05/22) CX: 05/14 UCX: Klebsiella Pneumoniae ABX: Cefepime (05/14-05/17) Keflex (05/17-05/22) Acute pain Assessment & Plan Multi modal with lower dose oxycodone Discharge planning issues Assessment & Plan 05/14 Admitted, syncope, PT/OT 05/16 poorly controlled pain, started schedule pain medications 05/17 agitation, Briscoe catheter placed for urinary retention 05/18 requiring 1:1 sitter 05/19 still requiring 1:1 sitter Treatment Plan completed Possible syncopal fall Assessment & Plan - Orthostatics - TTE - Carotid duplex - F/u CT body read. ?Possible RUL consolidation on CXR + leukocytosis in ED for which she received a dose of cefepime in the ED 05/15: Syncope workup 05/16 Carotid ultrasounds completed- no interventions required 05/17 ECHO- results pending Pubic ramus fracture, right, closed, initial encounter (HCC) Assessment & Plan - Orthopedics consult, non-op management - WBAT RLE - Pain control - PT/OT PLAN: Follow up with Dr. 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) Assessment & Plan Continue home Celexa 20 daily, Seroquel 50 daily Hold home Ativan and consider discontinuing on discharge given falls and age 12/10 called to bedside for irritable behavior, bladder scan performed noted urinary retention- Briscoe placed, continue Seroquel 05/18 called to the bedside due to patient waning to get out of bd and not redirected, provided Zyprexa Sublingual 05/19 restarted home PRN Ativan BID Hypothyroid Assessment & Plan Continue home levothyroxine 137mcg daily Hyperlipidemia Assessment & Plan Continue home atorvastatin 10 daily Atherosclerosis of both carotid arteries Assessment & Plan - History of R CEA (2017) and known completely occluded L ICA - repeat carotid duplex given possible syncope - patient should be on ASA 81mg once able to confirm she has no contraindications 05/18 started Aspirin 81 mg PO daily Operative Procedures Performed: Procedure name not found. No surgery found Discharge Physical Exam: Discharge Condition: fair Pulse: 77 Resp: 20 BP: 163/60 Temp: 37.2 ??C (99 ??F) Weight: 100.7 kg (222 lb) Physical Exam Constitutional: alert and oriented x3 and no acute distress HEENT: Pupils equal, EOMs grossly normal, mucous membranes moist Respiratory: equal chest rise bilaterally and respirations unlabored Abdomen: soft, non-distended Skin: warm, well perfused and extremities non-edematous, right hip dressing c/d/i Briscoe with clear yellow efflux Diet: Diet Instructions Adult Discharge Diet Diet Type: Return to previous diet Discharge Disposition: Discharge to SNF Code Status at Discharge: Full Code Activity: Activity Instructions Discharge Activity: Walking -You may walk as tolerated. Wound Care: Requires assistance as directed none Discharge Medications: Your medication list START taking these medications apixaban 2.5 mg tablet 2.5 mg, oral, 2 times daily Commonly known as: ELIQUIS aspirin 81 mg enteric coated tablet 81 mg, oral, Daily cholecalciferol 1,000 unit capsule 1,000 Units, oral, Daily Commonly known as: VITAMIN D-3 HYDROmorphone 2 mg tablet 2 mg, oral, Every 4 hours PRN Commonly known as: DILAUDID lidocaine 5 % 1 patch, transdermal, Every 24 hours, Remove & discard patch within 12 hours or as directed by MD. Commonly known as: LIDODERM methocarbamoL 500 mg tablet 500 mg, oral, 3 times daily Commonly known as: ROBAXIN polyethylene glycol 17 gram packet 17 g, oral, Daily Commonly known as: MIRALAX senna-docusate 8.6-50 mg 1 tablet, oral, 2 times daily Commonly known as: PERICOLACE CONTINUE taking these medications acetaminophen 325 mg tablet 650 mg, oral, Every 6 hours PRN Commonly known as: TYLENOL aluminum-magnesium hydroxide-simethicone 40-40-4 mg/mL suspension oral Commonly known as: MAALOX atorvastatin 10 mg tablet 10 mg, oral, Daily Commonly known as: LIPITOR citalopram 10 mg tablet 20 mg, oral, Daily Commonly known as: CeleXA cyanocobalamin 1,000 mcg tablet 1,000 mcg, oral, Daily Commonly known as: Vitamin B-12 docusate sodium 100 mg capsule 100 mg, oral, 2 times daily Commonly known as: COLACE ferrous sulfate 325 mg (65 mg of elemental iron) tablet 325 mg, oral, 2 times daily glimepiride 1 mg tablet 1 mg, oral, Daily before breakfast Commonly known as: AMARYL levothyroxine 137 mcg tablet oral, Daily (early AM) Commonly known as: SYNTHROID LORAZEPAM ORAL 0.5 mg, oral omeprazole 20 mg capsule 20 mg, oral, Daily Commonly known as: PriLOSEC pioglitazone 30 mg tablet 30 mg, oral, Daily Commonly known as: ACTOS QUEtiapine 50 mg tablet 50 mg, oral, Nightly Commonly known as: SEROquel STOP taking these medications HYDROcodone-acetaminophen 5-325 mg per tablet Commonly known as: NORCO risperiDONE 0.25 mg tablet Commonly known as: RisperDAL ASK your doctor about these medications amLODIPine 10 mg tablet 10 mg, oral, Daily Commonly known as: NORVASC Discharge Instructions: Other Instructions Call provider for: increased temperature -Temperature greater than 101 degrees F Call provider for: nausea, vomiting, diarrhea -If you have persistent nausea, vomiting or diarrhea that does not stop Call provider for: redness, tenderness, or signs of infection (pain, swelling, redness, odor or green/yellow discharge around incision site) Call provider for: severe uncontrolled pain Call provider for: any other concerns or questions If you have questions regarding your hospital course you may call [phone] ask to speak with a provider with the Geriatric Trauma team. A message will be sent to the inpatient providers. Your call will be returned at their earliest convenience. If you have an emergency, please go to your nearest Emergency Department. Call provider if: you feel dizzy, very tired or like you may faint Special Instructions PLAN: Follow up with Dr. Singh, 06/29/21 at 12:30 weight bearing as tolerated, post orthopedic injury DVT prophylaxis Eliquis 2.5 mg pO x 4 weeks at discharge Special Instructions You have a briscoe catheter placed for urinary retention -continue to wash around the catheter twice daily with warm soapy water for hygiene, or per facility guidelines -please attempt briscoe removal over the next few days Tube or drain care You have a briscoe catheter placed for urinary retention -continue to wash around the catheter twice daily with warm soapy water for hygiene, or per facility guidelines -please attempt briscoe removal over the next few days For Follow Up [facility] at [phone] Follow up Future Appointments Date Time Provider Department Center 06/29/2024 12:30 PM Ngoc Singh MD [facility] 6A OS 09/15/2024 1:45 PM Chad Boudreaux NP [facility] 40 NL All care plans discussed with rounding/operative attending: Brian Castaneda MD I spent 35 minutes completing this hospital discharge. Kathe Burnett NP 05/20/24 CC: Cedric Nguyen MD Cosigned by Brian Castaneda MD at 05/20/2024 4:50 PM PROCESS TANK TENDER ESS TANK TENDER ESS TANK TENDER documented in this encounter Medications at Time of Discharge acetaminophen (TYLENOL) 325 mg tablet Take 2 tablets (650 mg total) by mouth every 6 (six) hours as needed for pain aluminum-magnesiu m hydroxide-simethi cone (MAALOX) suspension 200-200-20 mg/5 mL Take by mouth amLODIPine (NORVASC) 10 mg tablet Take 1 tablet (10 mg total) by mouth daily apixaban (ELIQUIS) 2.5 mg tabletIndications :VTE Prophylaxis Take 1 tablet (2.5 mg total) by mouth 2 (two) times a day 60 tablet 05/19/2024 5 aspirin 81 mg enteric coated tablet Take 1 tablet (81 mg total) by mouth daily 30 tablet 11 05/20/2024 5 atorvastatin (LIPITOR) 10 mg tablet Take 1 tablet (10 mg total) by mouth daily cholecalciferol (VITAMIN D-3) 1,000 unit capsule Take 1 capsule (1,000 Units total) by mouth daily 30 capsule 11 05/19/2024 5 citalopram (CeleXA) 10 mg tablet Take 2 tablets (20 mg total) by mouth daily cyanocobalamin (Vitamin B-12) 1,000 mcg tabletIndications :Prevention of Vitamin B12 Deficiency Take 1 tablet (1,000 mcg total) by mouth daily docusate sodium (COLACE) 100 mg capsuleIndication s:constipation Take 1 capsule (100 mg total) by mouth 2 (two) times a day ferrous sulfate 325 mg (65 mg of elemental iron) tablet Take 1 tablet (325 mg total) by mouth 2 (two) times a day 09/19/2021 glimepiride (AMARYL) 1 mg tabletIndications :type 2 diabetes mellitus Take 1 tablet (1 mg total) by mouth daily before breakfast HYDROmorphone (DILAUDID) 2 mg tabletIndications :Pain Take 1 tablet (2 mg total) by mouth every 4 (four) hours as needed for pain 8 tablet 05/20/2024 levothyroxine (SYNTHROID) 137 mcg tablet Take by 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 30 patch 05/19/2024 5 LORAZEPAM ORAL Take 0.5 mg by mouth methocarbamoL (ROBAXIN) 500 mg tablet Take 1 tablet (500 mg total) by mouth 3 (three) times a day 90 tablet 05/19/2024 5 omeprazole (PriLOSEC) 20 mg capsule Take 1 capsule (20 mg total) by mouth daily pioglitazone (ACTOS) 30 mg tablet Take 1 tablet (30 mg total) by mouth daily polyethylene glycol (MIRALAX) 17 gram packetIndications :constipation Take 1 packet (17 g total) by mouth daily 30 packet 05/20/2024 5 senna-docusate (PERICOLACE) 8.6-50 mgIndications:con stipation Take 1 tablet by mouth 2 (two) times a day 60 tablet 05/19/2024 5 cephalexin (KEFLEX) 250 mg capsuleIndication s:Urinary Tract/Genitourina ry Infection Take 1 capsule (250 mg total) by mouth 3 (three) times a day for 5 doses 5 capsule 05/20/2024 4 documented as of this encounter Ordered Prescriptions Prescription Sig Dispense Quantity Refills Last Filled Start Date End Date HYDROmorphone (DILAUDID) 2 mg tabletIndications: Pain Take 1 tablet (2 mg total) by mouth every 4 (four) hours as needed for pain 8 tablet 05/20/2024 lidocaine (LIDODERM) 5 % Place 1 patch on the skin daily Remove & discard patch within 12 hours or as directed by . 30 patch 05/19/2024 5 polyethylene glycol (MIRALAX) 17 gram packetIndications: constipation Take 1 packet (17 g total) by mouth daily 30 packet 05/20/2024 5 senna-docusate (PERICOLACE) 8.6-50 mgIndications:cons tipation Take 1 tablet by mouth 2 (two) times a day 60 tablet 05/19/2024 5 methocarbamoL (ROBAXIN) 500 mg tablet Take 1 tablet (500 mg total) by mouth 3 (three) times a day 90 tablet 05/19/2024 5 cholecalciferol (VITAMIN D-3) 1,000 unit capsule Take 1 capsule (1,000 Units total) by mouth daily 30 capsule 11 05/19/2024 5 aspirin 81 mg enteric coated tablet Take 1 tablet (81 mg total) by mouth daily 30 tablet 11 05/20/2024 5 apixaban (ELIQUIS) 2.5 mg tabletIndications: VTE Prophylaxis Take 1 tablet (2.5 mg total) by mouth 2 (two) times a day 60 tablet 05/19/2024 5 cephalexin (KEFLEX) 250 mg capsuleIndications :Urinary Tract/Genitourinar y Infection Take 1 capsule (250 mg total) by mouth 3 (three) times a day for 5 doses 5 capsule 05/20/2024 4 documented in this encounter Discharge Disposition Disposition Code Departure Means Destination Comment s Discharge to SNF documented in this encounter Progress Notes * Marjan Wen OT - 05/19/2024 2:50 PM CST Occupational Therapy Occupational Therapy Progress Note NOTE: This is a summary note of the richard components of the treatment session. For full details, review chart for all flowsheets documented on by this occupational therapy clinician on this date. Vitalsigns documented in vital signs flowsheet. Care plan progress documented in Care Plan Activity. For questions, please review the treatment team and contact the occupational therapist currently assigned to this patient. If an occupational therapist is not assigned to this patient, please call [phone]. 05/19/24 4505 General Session Type Treatment OT Received On 05/19/24 Safe Environment Arm band checked;Patient found sitting in chair;Gait belt utilized for all out of bed mobility Subjective Agreeable to Therapy Family/Caregiver Present Yes (son present for half of session) Precautions Precautions Fall risk Weight Bearing Restrictions Yes RLE Weight Bearing WBAT Precaution Comments reviewed safety Pain Assessment Pain Assessment Advanced Dementia Pain Score 4 Pain Location Back (Lumbar) Pain Orientation Generalized Pain Interventions Repositioned PAINAD (Pain Assessment in Advanced Dementia) Breathing 0 Negative Vocalization 1 Facial Expression 1 Body Language 1 Consolability 1 PAINAD Score 4 Cognition Cognition Comments patient requires frequent redirection and reassurance throughout session Arousal/Alertness Alert Attention Span Distractability Current communication Appears Intact Orientation Oriented to person Following Commands Follows one step commands with repetition Safety Judgment Impulsive Awareness of Errors Decreased awareness of errors Insight Decreased awareness of deficits Problem Solving Assistance required to identify errors made;Assistance required to generate solutions;Assistance required to implement solutions Compliance/Behavior Easy to engage;Anxious;Fearful;Agitated (2/2 potential sundowning) Perseveration Moderate (on positioning) Balance Balance Yes Static Sitting Balance Static Sitting-Balance Support Bilateral upper extremity supported Static Sitting-Sitting Surface Bed Static Sitting-Level of Assistance Distant supervision Static Standing Balance Static Standing-Balance Support Bilateral upper extremity supported (on OT) Static Standing-Standing Surface Floor Static Standing-Level of Assistance Minimum assistance Dynamic Standing Balance Dynamic Standing-Balance Support No upper extremity supported Dynamic Standing-Balance Lateral lean;Forward lean Dynamic Standing-Standing Surface Floor Dynamic Standing-Level of Assistance Moderate assistance ADL ADLS (WDL) X Grooming Grooming: Where assessed Supine, bed Grooming: Level of assistance Maximum Assist Grooming: Assistance with Increased time to complete;Use of adaptive equipment;Manipulation of containers;Appropriate use of ADL items;Reaching all areas of head/face;Sequencing;Attending to task;Problem solving;Organization LE Dressing LE Dressing: Where assessed Supine, bed LE Dressing: Level of assistance Dependent Bed Mobility Bed Mobility Yes Bed Mobility 1 Bed Mobility From 1 Edge of bed Bed Mobility Type 1 To Bed Mobility to 1 Supine Level of Assistance 1 Moderate Assist Bed Mobility Comments 1 Mod A for controlled descent & manuvering BLE Transfers Transfer Yes Transfer 1 Transfer From 1 Sit Transfer Type 1 To and from Transfer to 1 Stand Technique 1 Sit to stand;Stand to sit Transfer Device 1 No device Transfer Level of Assistance 1 Moderate Assist Trials/Comments 1 Mod A for force production, steadying, controlled descent, & cues for technique Toilet Transfers Toilet Transfer From Chair with arms Toilet Transfer Type To Toilet Transfer to (simulated via recliner) Toilet Transfer Technique Stand pivot Toilet Transfer: Equipment No device Toilet Transfers Moderate assistance Toilet Transfers Comments Mod A for force production, steadying, controlled descent, & cues fortechnique Daily Activity - 6 Clicks Putting on and taking off regular lower body clothing 1 Bathing 2 Toileting 1 Putting on and taking off upper body clothing 2 Personal Grooming 2 Eating Meals 3 Total Score (range 6-24) 11 Score Interpretation 29.04 Safe Environment End of Therapy Session Safe Environment End of Therapy Session Patient left supine in bed;Bed alarm in place and activated;RN notified;Call light within reach;Overbed table within reach;Restraint or restraint alternative in place Assessment Problem List Debility;Decreased cognition;Decreased endurance;Decreased balance;Decreased functional mobility;Decreased ADL independence;Decreased IADL independence Barriers to Discharge Current Mobility Status;Current ADL Status;Cognition;Decreased safety awareness Plan Plan Continue with current plan;If this is the last note, consider this the discharge summary Recommendation/Plan OT Recommendation Retirement Facility Patient at high risk for Falls;Injury due to decreased ability to care for self;Injury due to reduced functional status;Injury due to balance deficits;Injury due to impaired cognition;Injury at home as patient has not returned to prior level of function;Readmission;Developing impaired skin integrity;Cognitive decline due to decreased social participation;Mismanagement of medications;Prolonged dependence for self care tasks Recommend SNF due to Risk of injury at home;Unable to safely care for self in the home;Skilled therapy needed to address care for self in the home;Skilled therapy needed to address functional deficits;Skilled therapy needed for patient to return to prior level of independence OT Frequency during current admission 3-5x/wk Treatment/Interventions during current admission ADL/IADL retraining;Balance Training;Bed mobility;Compensatory technique education;Endurance training;Functional activity;Functional mobility training;Functional transfer training;Strengthening;Therapeutic exercise;Transfer training;Therapeutic activi ty Progress during current admission Slow progress, cognitive deficits OT - Next Appointment 05/20/24 Multi-Disciplinary Problems (from Occupational Therapy) Active Problems Problem: Dressings Lower Extremities Start Date: 05/15/24 Goal Start Date Expected End Date End Date STG - Patient to complete lower body dressing mod a utilizing AD PRN. 05/15/24 05/22/24 -- Problem: Grooming Start Date: 05/15/24 Goal Start Date Expected End Date End Date STG - Patient will complete grooming in standing min a utilizing AD PRN. 05/15/24 05/22/24 -- Problem: Transfers Start Date: 05/15/24 Goal Start Date Expected End Date End Date STG - Patient will perform toilet transfer min a utilizing AD PRN. 05/15/24 05/22/24 -- Problem: OT Misc Start Date: 05/15/24 Goal Start Date Expected End Date End Date OT LTG - Misc 1 Pt will perform all ADLs I. 05/15/24 06/12/24 -- ESS TANK TENDER * Falguni Galvez NP - 05/19/2024 12:20 PM CST Images from the original note were not included. [facility] Floor Daily Progress Note Admit: 05/14/2024 5:23 AM Date: May 19, 2024 Length of Stay: 5 Attending: Raúl Sawant,* POD:* No surgery found * Subjective History: GTS 83 y.o. year old female PMH of Alzheimer's Dementia, diabetes mellitus type 2, hypertension, dementia, presenting as an unwitnessed [facility] night when getting up to go to the restroom. Villalta scan at outside hospital notable for right superior pubic rami fracture. Needs syncope workup Edited by: Lynne Montero MD at 05/14/2024 1343 Interval History: requiring 1:1 sitter due to dementia and agitation, [facility] Objective Medications: Current Facility-Administered Medications: acetaminophen (TYLENOL) tablet 1,000 mg, 1,000 mg, oral, Q6H NHAN, Falguni Galvez NP, 1,000 mgat 05/19/24 1122 amLODIPine (NORVASC) tablet 10 mg, 10 mg, oral, Daily, Vikash Servin MD, 10 mg at 05/19/24 0829 aspirin enteric coated tablet 81 mg, 81 mg, oral, Daily, Falguni Galvez NP, 81 mg at 829 atorvastatin (LIPITOR) tablet 10 mg, 10 mg, oral, Daily, Vikash Servin MD, 10 mg at 05/19/24 0829 Carrier Fluids for Secondary Infusion - 0.9% Sodium Chloride, 30 mL, intravenous, PRN, Spike Tidwell MD cephalexin (KEFLEX) capsule 250 mg, 250 mg, oral, TID, Falguni Galvez NP, 250 mg at 05/19/24 0829 citalopram (CeleXA) tablet 20 mg, 20 mg, oral, Daily, Vikash Servin MD, 20 mg at 829 dextrose gel in packet 15 g, 15 g, oral, Q15 Min PRN OR dextrose (D10W) 10% bolus 250 mL, 250 mL, intravenous, Q15 Min PRN, Spike Tidwell MD docusate sodium (COLACE) capsule 100 mg, 100 mg, oral, BID, MalathiVikash adams MD, 100 mg at 05/19/24 0829 glucagon injection 1 mg, 1 mg, intramuscular, Q30 Min PRN, Spike Tidwell MD heparin 5,000 unit/mL injection 5,000 Units, 5,000 Units, subcutaneous, Q8H NHAN, Falguni Galvez NP, 5,000 Units at 05/19/24 0605 insulin lispro (HumaLOG, ADMELOG) 100 unit/mL injection 0-4 Units, 0-4 Units, subcutaneous, Nightly, Spike Tidwell MD insulin lispro (HumaLOG, ADMELOG) 100 unit/mL injection 0-5 Units, 0-5 Units, subcutaneous, TID with meals, Spike Tidwell MD, 1 Units at 05/17/24 1214 levothyroxine (SYNTHROID) tablet 137 mcg, 137 mcg, oral, Daily - 0600, Spike Tidwell MD, 137 mcg at 05/19/24 0605 lidocaine (LIDODERM) 5 % patch 1 patch, 1 patch, transdermal, Q24H, Cain Demarco MD, 1 patch at 05/19/24 1153 LORazepam (ATIVAN) tablet 0.5 mg, 0.5 mg, oral, Q12H PRN, Amador Escamilla MD methocarbamoL (ROBAXIN) tablet 500 mg, 500 mg, oral, TID, Falguni Galvez NP, 500 mg at 05/19/24 0829 oxyCODONE (ROXICODONE) tablet 5 mg, 5 mg, oral, Q4H PRN, Spike Tidwell MD, [address] (PROTONIX) extended release tablet 40 mg, 40 mg, oral, Daily, Vikash Servin MD, 40 mg at 05/19/24 0829 polyethylene glycol (MIRALAX) packet 17 g, 17 g, oral, Daily, Falguni Galvez NP, 17 g at 05/19/24 0829 QUEtiapine (SEROquel) tablet 50 mg, 50 mg, oral, Nightly, Vikash Servin MD, 50 mg at 05/18/24 192 senna-docusate (PERICOLACE) 8.6-50 mg per tablet 1 tablet, 1 tablet, oral, BID, Vikash Servin MD, 1 tablet at 05/19/24 0829 sodium chloride 0.9% flush 0.5-20 mL, 0.5-20 mL, intra-catheter, Q8H NHAN (ALT), Spike Tidwell MD, 10 mL at 05/19/24 0833 sodium chloride 0.9% flush 0.5-20 mL, 0.5-20 mL, intra-catheter, PRN, Spike Tidwell MD Past Medical: No past medical history on file. Surgical History: Past Surgical History: Procedure Laterality Date CAROTID ENDARTERECTOMY Right 2017 LUMBAR LAMINECTOMY 2012 Is&Os: I/O last 2 completed shifts: In: 220 [P.O.:220] Out: 1050 [Urine:1050] I/O this shift: In: - Out: 175 [Urine:175] Physical Exam: 24hr Min/Max: Temp Min: 36.6 ??C (97.8 ??F) Max: 37.1 ??C (98.7 ??F) Pulse Min: 74 Max: 102 BP Min: 145/53 Max: 165/65 Resp Min: 17 Max: 20 SpO2 Min: 85 % Max: 93 % Physical Exam Constitutional: alert and oriented x1,agitated at times and no acute distress HEENT: Pupils equal, EOMs grossly normal, mucous membranes moist Respiratory: equal chest rise bilaterally and respirations unlabored Abdomen: soft, non-distended, nontender, last BM unknown Skin: warm, well perfused and extremities non-edematous Briscoe in place Labs/Imaging: Recent Labs Lab Units 05/18/24210905/17/24213205/16/242025 WBC K/cumm 9.8 13.0* 14.3* HEMOGLOBIN g/dL 9.9* 10.8* 10.2* HEMATOCRIT % 30.8* 32.9* 30.8* PLATELETS K/cumm 226 248 268 Recent Labs Lab Units 05/19/24 1111 05/19/24 0727 05/18/24 2110 05/17/24 2146 05/17/24 2133 05/17/24 0845 05/16/242025 SODIUM mmol/L -- -- 138 -- 136 -- 130* POTASSIUM PLASMA mmol/L -- -- 4.4 -- 4.5 -- 5.1* CHLORIDE mmol/L -- -- 105 -- 102 -- 98 CO2 mmol/L -- -- 25 -- 23 -- 21* BUN SERUM mg/dL -- -- 32* -- 40* -- 49* CREATININE mg/dL -- -- 1.06 -- 1.09 -- 1.43* GLUCOSE mg/dL -- -- 116 -- 124 -- 139 POC GLUCOSE MONITOR mg/dL 118 112 -- < > -- < > 148 CALCIUM mg/dL -- -- 8.8 -- 8.6 -- 8.3* < > = values in this interval not displayed. Recent Labs Lab Units 05/14/24 0535 PROTIME (PT) sec 12.2 INR 1.13 XR Pelvis 3 or More Views Result Date: 05/14/2024 There are fractures of the right superior and inferior pubic ramus as well as the right sacral ala.Contrast is noted within the urinary bladder. No definite extraluminal contrast. If there is concern for bladder injury, consider CT cystogram. Electronically signed by: Kendal Braun M.D. CT Body Outside Reference Result Date: 05/14/2024 These images are for Reference purposes only and have not been reviewed by [facility]. There will be no report generated by a [facility] Radiologist. I have independently reviewed and interpreted all relevant lab and radiographic data. Assessment/Plan Trauma Surgical Assessment and Plan Urinary retention Assessment & Plan 05/16 removed Briscoe- void check 05/17 noted agitation per nursing, and frequent incontinence, Bladder Scan 650 mL, Briscoe catheter placed UTI (urinary tract infection) Assessment & Plan 05/14 UA sent on admission, refluxed to CX 05/17 changed Cefepime to Keflex PO x 5 days (05/17-05/22) CX: 05/14 UCX: Klebsiella Pneumoniae ABX: Cefepime (05/14-05/17) Keflex (05/17-05/22) Acute pain Assessment & Plan Multi modal with lower dose oxycodone Discharge planning issues Assessment & Plan 05/14 Admitted, syncope, PT/OT 05/16 poorly controlled pain, started schedule pain medications 05/17 agitation, Briscoe catheter placed for urinary retention 05/18 requiring 1:1 sitter 05/19 still requiring 1:1 sitter Treatment plan needed Possible syncopal fall Assessment & Plan - Orthostatics - TTE - Carotid duplex - F/u CT body read. ?Possible RUL consolidation on CXR + leukocytosis in ED for which she received a dose of cefepime in the ED 05/15: Syncope workup 05/16 Carotid ultrasounds completed- no interventions required 05/17 ECHO- results pending Pubic ramus fracture, right, closed, initial encounter (HCC) Assessment & Plan - Orthopedics consult, non-op management - WBAT RLE - Pain control - PT/OT PLAN: Follow up with Dr. 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) Assessment & Plan Continue home Celexa 20 daily, Seroquel 50 daily Hold home Ativan and consider discontinuing on discharge given falls and age 12/10 called to bedside for irritable behavior, bladder scan performed noted urinary retention- Briscoe placed, continue Seroquel 05/18 called to the bedside due to patient waning to get out of bd and not redirected, provided Zyprexa Sublingual 05/19 restarted home PRN Ativan BID Hypothyroid Assessment & Plan Continue home levothyroxine 137mcg daily Hyperlipidemia Assessment & Plan Continue home atorvastatin 10 daily Atherosclerosis of both carotid arteries Assessment & Plan - History of R CEA (2016) and known completely occluded L ICA - repeat carotid duplex given possible syncope - patient should be on ASA 81mg once able to confirm she has no contraindications 05/18 started Aspirin 81 mg PO daily Lines/Drains/Tubes: PIV, Briscoe replaced DVT Prophylaxis: Lovenox Q12 Diet: Adult Diet Regular, Restricted; Consistent Carbohydrate Activity: WBAT- PT/OT GI Prophylaxis: Protonix Daily Code Status: Full Code Total time spent included the following activities caring for this patient: Patient chart review, Reviewing/obtaining history, Examination and evaluation, Counseling/educating patient/family/caregiver, Ordering medications/tests/procedures, Referring & communicating with other health career development associate, Documenting clinical information in the health record, Independent interpretation of results, and Care coordination 45 minutes All care plans discussed with rounding/operative attending: MD Falguni Cancino NP Cosigned by Brian Castaneda MD at 05/20/2024 4:49 PM PROCESS TANK TENDER ESS TANK TENDER ESS TANK TENDER * [facility] Blank - 05/19/2024 8:20 AM CST Physical Therapy Physical Therapy Progress Note NOTE: This is a summary note of the richard components of the treatment session. For full details, review chart for all flowsheets documented on by this physical therapy clinician on this date. Vital signs documented in vital signs flowsheet. Care plan progress documented in Care Plan Activity. For questions, please review the treatment team and contact the PT or [employer] currently assigned to this patient. If a physical therapy clinician is not assigned to this patient, please call [phone]. Multi-Disciplinary Problems (from Physical Therapy) Active Problems Problem: Mobility Start Date: 05/16/24 Goal Start Date Expected End Date End Date LTG - Patient will ambulate community distance 05/16/24 05/24/24 -- Goal Start Date Expected End Date End Date STG - Patient will ambulate 50ft w/ ww SBA 05/16/24 05/23/24 -- Problem: Transfers Start Date: 05/16/24 Goal Start Date Expected End Date End Date STG - Transfer from bed to chair SBA w/ ww 05/16/24 05/23/24 -- Goal Start Date Expected End Date End Date STG - Patient will perform bed mobility SBA 05/16/24 05/23/24 -- Goal Start Date Expected End Date End Date STG - Patient will transfer sit to and from stand SBA w/ ww 05/16/24 05/23/24 -- Problem: PT Misc Start Date: 05/16/24 Goal Start Date Expected End Date End Date PT STG #1: HEP SBA 05/16/24 05/23/24 -- 05/19/24 0820 General Session Type Treatment PT Received On 05/19/24 Safe Environment Arm band checked;Patient found in supine;Gait belt utilized for all out of bed mobility Subjective Agreeable to Therapy Family/Caregiver Present No Precautions Precautions Fall risk Weight Bearing Restrictions Yes RLE Weight Bearing WBAT Precaution Handout Issued No Precaution Comments verbally reviewed precautions Activity Tolerance Activity Tolerance Comments jess: deferred Pain Assessment Pain Assessment Odom-Cheng FACES Odom-Cheng FACES Pain Rating 4 Pain Score 10 - Worst possible pain Pain Type Acute pain Pain Location Generalized Pain Interventions RN Notified (RN Maria C notified) Cognition Overall Cognitive Status Impaired Arousal/Alertness Alert Orientation Oriented to person Following Commands Follows one step commands with repetition Balance Tests Balance Tests No Balance Balance Yes Static Sitting Balance Static Sitting-Balance Support Bilateral upper extremity supported;Feet supported Static Sitting-Sitting Surface Bed Static Sitting-Level of Assistance Distant supervision Static Sitting-Comment/# of Minutes for safety Static Standing Balance Static Standing-Balance Support Bilateral upper extremity supported (WW) Static Standing-Standing Surface Floor Static Standing-Level of Assistance Minimum assistance (x2) Static Standing-Comment/# of Minutes minAx2 for increased safety Bed Mobility Bed Mobility Yes Bed Mobility 1 Bed Mobility From 1 Supine Bed Mobility Type 1 To Bed Mobility to 1 Edge of bed;Short sit Level of Assistance 1 Minimum Assist Bed Mobility Comments 1 min for LE management and trunk elevation Transfers Transfer Yes Transfer 1 Transfer From 1 Sit;Bed Transfer Type 1 To Transfer to 1 Stand Technique 1 Sit to stand Transfer Device 1 Wheeled walker Transfer Level of Assistance 1 Minimum Assist (x2) Trials/Comments 1 Bailey x2 for increased safety, pt requires verbal cues for hand placement Transfers 2 Transfer From 2 Bed Transfer Type 2 To Transfer to 2 Chair with arms Technique 2 Stand pivot Transfer Device 2 Wheeled walker Transfer Level of Assistance 2 Minimum Assist (x2) Trials/Comments 2 Bailey x2 for increased safety, patient requires verbal cues for increased safety, hand placement, utilizing UEs to help advance LEs Transfers 3 Transfer From 3 Stand Transfer Type 3 To Transfer to 3 Sit;Chair with arms Technique 3 Stand to sit Transfer Device 3 Wheeled walker Transfer Level of Assistance 3 Minimum Assist (minAx2) Trials/Comments 3 Bailey x2 for increased safety and controlled descent Ambulation Ambulation No Stairs Stairs No Basic Mobility - 6 Click How much difficulty does the patient have: Turning over in bed 3 How much difficulty does the patient currently have: Sitting down and standing up from a chair witharms? 3 How much difficulty does the patient have: Moving from lying on back to sitting on the side of the bed? 3 How much difficulty does the patient have: Moving to and from a bed to a chair including wheelchair? 3 How much help does the patient currently need: Walk in hospital room? 2 How much help from another person does the patient currently need: Climbing 3-5 steps with a railing? 1 Total 6 Click Score (range 6-24) 15 Score Interpretation 36.97 Safe Environment End of Therapy Session Safe Environment End of Therapy Session Patient left in recliner;RN notified;Chair alarm in place and activated;Call light within reach Assessment Prognosis Good Problem List Reduced mobility;Decreased strength;Decreased endurance;Impaired balance;Decreased cognition;Decreased safety awareness Barriers to Discharge Current Mobility Status Plan Plan Continue with current plan;If this is the last note, consider this the discharge summary Recommendation/Plan PT Recommendation/Plan (S) [facility] (return to facility with PT intervention) Patient at high risk for Falls;Readmission;Injury due to decreased ability to care for self;Injury due to reduced functional status;Injury due to impaired cognition;Injury due to balance deficits PT Frequency during current admission 5-7x/wk Treatment/Interventions during current admission Balance Training;Bed mobility;Endurance training;Functional activity;Functional transfer training;Gait training;Strengthening;Therapeutic activity;Therapeutic exercise;Transfer training PT - Next Appointment 05/20/24 PT - OK to Discharge No PT Time Calculation PT Start Time 0820 PT Stop Time 0843 PT Time Calculation (min) 23 min Cosigned by Jose Maria Devlin, PT at 05/20/2024 7:45 AM PROCESS TANK TENDER ESS TANK TENDER ESS TANK TENDER * Jose Maria Devlin, PT - 05/18/2024 3:58 PM CST Physical Therapy 05/18/24 1558 General PT Missed Visit Reason (Patient asleep in AM and family request to return later. Unable to return in PM.) ESS TANK TENDER * Falguni Galvez NP - 05/18/2024 7:52 AM CST Images from the original note were not included. [facility] Floor Daily Progress Note Admit: 05/14/2024 5:23 AM Date: May 18, 2024 Length of Stay: 4 Attending: Raúl Sawant,* POD:* No surgery found * Subjective History: GTS 83 y.o. year old female PMH of Alzheimer's Dementia, diabetes mellitus type 2, hypertension, dementia, presenting as an unwitnessed Ground level fall at [facility] last night when getting up to go to the restroom. [place] scan at outside hospital notable for right superior pubic rami fracture. Needs syncope workup Edited by: Lynne Montero MD at 05/14/2024 1343 Interval History: placed Briscoe yesterday for urinary retention, cont abx for UTI- awaiting placement at facility Objective Medications: Current Facility-Administered Medications: acetaminophen (TYLENOL) tablet 1,000 mg, 1,000 mg, oral, Q6H NHAN, Falguni Galvez NP, 1,000 mgat 05/18/24 0552 amLODIPine (NORVASC) tablet 10 mg, 10 mg, oral, Daily, Vikash Servin MD, 10 mg at 05/17/24 0852 aspirin enteric coated tablet 81 mg, 81 mg, oral, Daily, Falguni Galvez NP atorvastatin (LIPITOR) tablet 10 mg, 10 mg, oral, Daily, Vikash Servin MD, 10 mg at 05/17/24 0853 bisacodyL (DULCOLAX) suppository 10 mg, 10 mg, rectal, Once, Falguni Galvez NP Carrier Fluids for Secondary Infusion - 0.9% Sodium Chloride, 30 mL, intravenous, PRN, Spike Tidwell MD cephalexin (KEFLEX) capsule 250 mg, 250 mg, oral, TID, Falguni Galvez NP, 250 mg at 05/17/242099 citalopram (CeleXA) tablet 20 mg, 20 mg, oral, Daily, Viaksh Servin MD, 20 mg at dextrose gel in packet 15 g, 15 g, oral, Q15 Min PRN OR dextrose (D10W) 10% bolus 250 mL, 250 mL, intravenous, Q15 Min PRN, Spike Tidwell MD docusate sodium (COLACE) capsule 100 mg, 100 mg, oral, BID, Vikash Servin MD, 100 mg at 05/17/242099 glucagon injection 1 mg, 1 mg, intramuscular, Q30 Min PRN, Spike Tidwell MD heparin 5,000 unit/mL injection 5,000 Units, 5,000 Units, subcutaneous, Q8H NHAN, Falguni Galvez NP, 5,000 Units at 05/18/24 0552 insulin lispro (HumaLOG, ADMELOG) 100 unit/mL injection 0-4 Units, 0-4 Units, subcutaneous, Nightly, Spike Tidwell MD insulin lispro (HumaLOG, ADMELOG) 100 unit/mL injection 0-5 Units, 0-5 Units, subcutaneous, TID with meals, Spike Tidwell MD, 1 Units at 05/17/24 1214 levothyroxine (SYNTHROID) tablet 137 mcg, 137 mcg, oral, Daily - 0600, Spike Tidwell MD, 137 mcg at 05/18/24 0551 lidocaine (ASPERCREME) 4 % patch 1 patch, 1 patch, transdermal, Q24H, Cain Demarco MD, 1 patch at 05/17/24 1516 methocarbamoL (ROBAXIN) tablet 500 mg, 500 mg, oral, TID, Falguni Galvez NP, 500 mg at 05/17/242099 oxyCODONE (ROXICODONE) tablet 5 mg, 5 mg, oral, Q4H PRN, Spike Tidwell MD, [address] (PROTONIX) extended release tablet 40 mg, 40 mg, oral, Daily, Vikash Servin MD, 40 mg at 05/17/24 0855 polyethylene glycol (MIRALAX) packet 17 g, 17 g, oral, Daily, Falguni Galvez, SOFYA QUEtiapine (SEROquel) tablet 50 mg, 50 mg, oral, Nightly, Vikash Servin MD, 50 mg at 05/17/24 2100 senna-docusate (PERICOLACE) 8.6-50 mg per tablet 1 tablet, 1 tablet, oral, BID, Vikash Servin MD, 1 tablet at 05/17/24 2100 sodium chloride 0.9% flush 0.5-20 mL, 0.5-20 mL, intra-catheter, Q8H NHAN (ALT), Spike Tidwell MD sodium chloride 0.9% flush 0.5-20 mL, 0.5-20 mL, intra-catheter, PRN, Spike Tidwell MD Past Medical: No past medical history on file. Surgical History: Past Surgical History: Procedure Laterality Date CAROTID ENDARTERECTOMY Right 2017 LUMBAR LAMINECTOMY 2012 Is&Os: I/O last 2 completed shifts: In: 10 [I.V.:10] Out: 1675 [Urine:1675] No intake/output data recorded. Physical Exam: 24hr Min/Max: Temp Min: 36.7 ??C (98 ??F) Max: 36.9 ??C (98.4 ??F) Pulse Min: 73 Max: 98 BP Min: 113/75 Max: 178/77 Resp Min: 15 Max: 30 SpO2 Min: 90 % Max: 100 % Physical Exam Constitutional: alert and oriented x1, and no acute distress HEENT: Pupils equal, EOMs grossly normal, mucous membranes moist Respiratory: equal chest rise bilaterally and respirations unlabored Abdomen: soft, non-distended, nontender, last BM unknown Skin: warm, well perfused and extremities non-edematous Briscoe in place Labs/Imaging: Recent Labs Lab Units 05/17/24213205/16/24202505/15/242105 WBC K/cumm 13.0* 14.3* 14.8* HEMOGLOBIN g/dL 10.8* 10.2* 10.8* HEMATOCRIT % 32.9* 30.8* 33.0* PLATELETS K/cumm 248 268 224 Recent Labs Lab Units 05/17/24 2146 05/17/24 21305/17/24210105/17/24 0845 05/16/24202505/16/2482005/15/242105 SODIUM mmol/L -- 136 -- -- 130* -- 137 POTASSIUM PLASMA mmol/L -- 4.5 -- -- 5.1* -- 5.1* CHLORIDE mmol/L -- 102 -- -- 98 -- 103 CO2 mmol/L -- 23 -- -- 21* -- 22 BUN SERUM mg/dL -- 40* -- -- 49* -- 50* CREATININE mg/dL -- 1.09 -- -- 1.43* -- 1.50* GLUCOSE mg/dL -- 124 -- -- 139 -- 164 POC GLUCOSE MONITOR mg/dL 144 -- 177 < > 148 < > -- CALCIUM mg/dL -- 8.6 -- -- 8.3* -- 8.7 < > = values in this interval not displayed. Recent Labs Lab Units 05/14/24 0535 PROTIME (PT) sec 12.2 INR 1.13 XR Pelvis 3 or More Views Result Date: 05/14/2024 There are fractures of the right superior and inferior pubic ramus as well as the right sacral ala.Contrast is noted within the urinary bladder. No definite extraluminal contrast. If there is concern for bladder injury, consider CT cystogram. Electronically signed by: Kendal Braun M.D. CT Body Outside Reference Result Date: 05/14/2024 These images are for Reference purposes only and have not been reviewed by [facility]. There will be no report generated by a [facility]iologist. I have independently reviewed and interpreted all relevant lab and radiographic data. Assessment/Plan Trauma Surgical Assessment and Plan Urinary retention Assessment & Plan 05/17 noted agitation per nursing, and frequent incontinence, Bladder Scan 650 mL, Briscoe catheter placed UTI (urinary tract infection) Assessment & Plan 05/14 UA sent on admission, refluxed to CX 05/17 changed Cefepime to Keflex PO x 5 days (05/17-12/15) CX: 05/14 UCX: Klebsiella Pneumoniae ABX: Cefepime (05/14-05/17) Keflex (05/17-05/22) Acute pain Assessment & Plan Multi modal with lower dose oxycodone Discharge planning issues Assessment & Plan 05/14 Admitted, syncope, PT/OT 05/16 poorly controlled pain, started schedule pain medications 05/17 agitation, Briscoe catheter placed for urinary retention Treatment needed Possible syncopal fall Assessment & Plan - Orthostatics - TTE - Carotid duplex - F/u CT body read. ?Possible RUL consolidation on CXR + leukocytosis in ED for which she received a dose of cefepime in the ED 05/15: Syncope workup 05/16 Carotid ultrasounds completed- no interventions required 05/17 ECHO- results pending Pubic ramus fracture, right, closed, initial encounter (HCC) Assessment & Plan - Orthopedics consult, non-op management - WBAT RLE - Pain control - PT/OT PLAN: Follow up with Dr. 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) Assessment & Plan Continue home Celexa 20 daily, Seroquel 50 daily Hold home Ativan and consider discontinuing on discharge given falls and age Hypothyroid Assessment & Plan Continue home levothyroxine 137mcg daily Hyperlipidemia Assessment & Plan Continue home atorvastatin 10 daily Atherosclerosis of both carotid arteries Assessment & Plan - History of R CEA (2017) and known completely occluded L ICA - repeat carotid duplex given possible syncope - patient should be on ASA 81mg once able to confirm she has no contraindications 05/18 started Aspirin 81 mg PO daily Lines/Drains/Tubes: PIV, Briscoe replaced DVT Prophylaxis: Lovenox Q12 Diet: Adult Diet Regular, Restricted; Consistent Carbohydrate Activity: WBAT- PT/OT GI Prophylaxis: Protonix Daily Code Status: Full Code Total time spent included the following activities caring for this patient: Patient chart review, Reviewing/obtaining history, Examination and evaluation, Counseling/educating patient/family/caregiver, Ordering medications/tests/procedures, Referring & communicating with other health career development associate, Documenting clinical information in the health record, Independent interpretation of results, and Care coordination 45 minutes All care plans discussed with rounding/operative attending: MD Falguni Cancino NP Cosigned by Brian Castaneda MD at 05/18/2024 3:05 PM PROCESS TANK TENDER ESS TANK TENDER ESS TANK TENDER * Raúl Antony RN - 05/17/2024 12:45 PM CST Frailty screening completed. Results below. Frailty level +/-: frail >0.25 (positive) (05/17/24 1245) -History collected with help of family at bedside. Pt with hx of Alzheimer's and lives at a rn long term care care facility. Provided redirection and reorientation to patient while visiting, as she continuously asks to have her restraints removed. Educated son on importance of frequent reorientation to help reduce agitation and restlessness. Assisted sitter with repositioning patient. Raúl Antony RN, TCRN Trauma Nurse Coordinator - Trauma and Acute Care Surgery ESS TANK TENDER * Álvaro Esposito MD - 05/17/2024 12:21 PM CST Orthopaedic Trauma Service Daily Progress Note Admit Date: 05/14/2024 Hospital Day: 3 JLW Dx: R zone 1 sacral fx, R inf and sup pubic rami fxs (LC1) Injury Mechanism: fall OI: none PMHx: Dementia, hypothyroid, HTN, CAD, MDD Plan: nonop, trial of mobilization Procedure(s): none Interval History: 05/17/24: AFVSS. Pain moderately controlled. NAEON. Transferred from bed to chair yesterday, PT/OT rec SNF. H/H 10.2/30.8. Cr 1.43. Exam: NVI, Dispo per primary. Ortho will follow peripherally for mobilization. Objective Vitals: 24hr Min/Max: Temp Min: 36.5 ??C (97.7 ??F) Max: 36.7 ??C (98.1 ??F) Pulse Min: 62 Max: 110 BP Min: 132/54 Max: 178/89 Resp Min: 11 Max: 20 SpO2 Min: 94 % Max: 100 % I/O last 2 completed shifts: In: 650 [P.O.:150; IV Piggyback:500] Out: - I/O this shift: In: 10 [I.V.:10] Out: - Physical Exam: Gen: No acute distress Alert and oriented: x3 Extremity Right Lower Extremity Dressing/wound: n/a Immobilization: n/a Sensation: intact to light touch in the superficial peroneal, deep peroneal, and tibial distributions Motor: fires tibialis anterior, gastroc-soleus complex, extensor hallucis longus, flexor hallucis longus Perfusion: toes WWP Tertiary Exam Findings: negative, there are no other apparent painful joints or extremities on exam Lab/Diagnostic Review: Recent Labs Lab Units 05/17/24 1153 05/17/24 0845 05/16/24 2026 05/14/24 1810 05/14/24 0535 SODIUM mmol/L -- -- 130* < > 134* POTASSIUM PLASMA mmol/L -- -- 5.1* < > 4.7 CHLORIDE mmol/L -- -- 98 < > 101 CO2 mmol/L -- -- 21* < > 23 ANIONGAP mmol/L -- -- 11 < > 10 GLUCOSE mg/dL -- -- 139 < > 149 POC GLUCOSE MONITOR mg/dL 160 < > 148 < > -- BUN SERUM mg/dL -- -- 49* < > 34* CREATININE mg/dL -- -- 1.43* < > 1.29* CALCIUM mg/dL -- -- 8.3* < > 8.8 ALBUMIN g/dL -- -- -- -- 3.9 ALK PHOS Units/L -- -- -- -- 134* ALT Units/L -- -- -- -- 29 AST Units/L -- -- -- -- 39 BILIRUBIN TOTAL mg/dL -- -- -- -- 0.7 WBC K/cumm -- -- 14.3* < > 18.8* HEMOGLOBIN g/dL -- -- 10.2* < > 12.6 HEMATOCRIT % -- -- 30.8* < > 38.6 PLATELETS K/cumm -- -- 268 < > 274 NEUTROS PCT % -- -- -- -- 83.1 LYMPHS PCT % -- -- -- -- 8.3 MONOS PCT % -- -- -- -- 7.2 EOS PCT % -- -- -- -- 0.3 APTT sec -- -- -- -- 32 INR -- -- -- -- 1.13 < > = values in this interval not displayed. Micro: Lab Results Component Value Date MICROBIOLOGY (.) 05/14/2024 Final Report: Greater than or equal to 100,000 colonies/mL of Klebsiella pneumoniae Assessment/Plan: 83 y.o. female p/w the above injuries. Ortho is planning for non-operative management of the above WB Status: Weight bearing as tolerated right lower extremity Immobilization: n/a Activity: Ambulate with assist Therapy: PT/OT for OOB/mobilization as tolerated. Precautions: None DVT ppx: Per primary Diet: Per primary Additional Needs: Bone health referral at discharge Ortho Trauma will sign off at this time, and follow their hospital course peripherally. Please callwith any concerns. Dispo: per primary Follow-Up: We have not yet scheduled this patient for an appointment, but we will contact the patient with the details including the timing and location of their appointment once it is scheduled. Please call with questions during daytime. See below for overnight issues. If you know the resident's name on the appropriate orthopaedic surgery team, please use [email or web address] to page resident directly. If questions arise and the appropriate resident can't be reached or you are calling overnight, please contact [phone] ([facility] 7:30 PM - 6:30 AM - Floor Resident) or [phone] (24 hours/day - Consult Resident) Cosigned by Ngoc Singh MD at 05/17/2024 12:51 PM PROCESS TANK TENDER ESS TANK TENDER ESS TANK TENDER * Edie Ramirez, PT - 05/17/2024 9:15 AM CST Physical Therapy Physical Therapy Progress Note NOTE: This is a summary note of the richard components of the treatment session. For full details, review chart for all flowsheets documented on by this physical therapy clinician on this date. Vital signs documented in vital signs flowsheet. Care plan progress documented in Care Plan Activity. For questions, please review the treatment team and contact the PT or [employer] currently assigned to this patient. If a physical therapy clinician is not assigned to this patient, please call [phone]. 05/17/24 0915 PT Last Visit Session Type Treatment PT Received On 05/17/24 Safe Environment Arm band checked;Gait belt not utilized, see comment Subjective Agreeable to Therapy Family/Caregiver Present No Precautions Precautions Fall risk Weight Bearing Restrictions Yes RLE Weight Bearing WBAT Precaution Handout Issued No Activity Tolerance Activity Tolerance Comments Jess: unable Pain Assessment Pain Assessment No/denies pain Cognition Cognition Comments Extensive safety cues throughout session Arousal/Alertness Alert;Appropriate responses to stimuli Orientation Oriented to person Following Commands Follows one step commands with repetition (and extensive cues for safety) Compliance/Behavior Anxious (restless irritability) Static Standing Balance Static Standing-Balance Support Bilateral upper extremity supported Static Standing-Standing Surface Floor Static Standing-Level of Assistance Minimum assistance Dynamic Standing Balance Dynamic Standing-Balance Support Bilateral upper extremity supported Dynamic Standing-Balance Lateral lean;Forward lean Dynamic Standing-Standing Surface Floor Dynamic Standing-Level of Assistance Minimum assistance Bed Mobility 1 Bed Mobility From 1 Supine Bed Mobility Type 1 To Bed Mobility to 1 Edge of bed Level of Assistance 1 Minimum Assist Bed Mobility Comments 1 HOB 45 Transfer 1 Transfer From 1 Sit Transfer Type 1 To and from Transfer to 1 Stand Technique 1 Sit to stand;Stand to sit Transfer Device 1 Wheeled walker Transfer Level of Assistance 1 Minimum Assist Transfers 2 Transfer From 2 Bed Transfer Type 2 To Transfer to 2 Chair with arms Technique 2 Stand and step;To left Transfer Device 2 Wheeled walker Transfer Level of Assistance 2 Minimum Assist Ambulation Ambulation No (Pt required extensive safety cues throughout session, gait deferred due to risk of fall) Stairs Stairs No Basic Mobility - 6 Click How much difficulty does the patient have: Turning over in bed 3 How much difficulty does the patient currently have: Sitting down and standing up from a chair witharms? 3 How much difficulty does the patient have: Moving from lying on back to sitting on the side of the bed? 3 How much difficulty does the patient have: Moving to and from a bed to a chair including wheelchair? 3 How much help does the patient currently need: Walk in hospital room? 3 How much help from another person does the patient currently need: Climbing 3-5 steps with a railing? 1 Total 6 Click Score (range 6-24) 16 Score Interpretation 38.32 Safe Environment End of Therapy Session Safe Environment End of Therapy Session Patient left in recliner;RN notified;Chair alarm in place and activated;Call light within reach (positional lap belt in place) Assessment Prognosis Good Problem List Reduced mobility;Debility;Decreased range of motion;Pain;Decreased safety awareness;Decreased cognition;Impaired judgement Plan Plan Continue with current plan;If this is the last note, consider this the discharge summary Recommendation/Plan PT Recommendation/Plan Group Home Care (Return to facility with PT intervention) Patient at high risk for Falls;Readmission;Injury due to impaired cognition PT Frequency during current admission 5-7x/wk Treatment/Interventions during current admission Balance Training;Bed mobility;Functional activity;Functional transfer training;Gait training;Strengthening;Therapeutic activity;Therapeutic exercise;Transfer training Progress during current admission Progressing toward goals PT - Next Appointment 05/18/24 PT Time Calculation PT Start Time 914 PT Stop Time 09 PT Time Calculation (min) 25 min Multi-Disciplinary Problems (from Physical Therapy) Active Problems Problem: Mobility Start Date: 05/16/24 Goal Start Date Expected End Date End Date LTG - Patient will ambulate community distance 05/16/24 05/24/24 -- Goal Start Date Expected End Date End Date STG - Patient will ambulate 50ft w/ ww SBA 05/16/24 05/23/24 -- Problem: Transfers Start Date: 05/16/24 Goal Start Date Expected End Date End Date STG - Transfer from bed to chair SBA w/ ww 05/16/24 05/23/24 -- Goal Start Date Expected End Date End Date STG - Patient will perform bed mobility SBA 05/16/24 05/23/24 -- Goal Start Date Expected End Date End Date STG - Patient will transfer sit to and from stand SBA w/ ww 05/16/24 05/23/24 -- Problem: PT Misc Start Date: 05/16/24 Goal Start Date Expected End Date End Date PT STG #1: HEP SBA 05/16/24 05/23/24 -- ESS TANK TENDER * Marjan Wen, OT - 05/16/2024 4:00 PM CST Occupational Therapy Occupational Therapy Progress Note NOTE: This is a summary note of the richard components of the treatment session. For full details, review chart for all flowsheets documented on by this occupational therapy clinician on this date. Vitalsigns documented in vital signs flowsheet. Care plan progress documented in Care Plan Activity. For questions, please review the treatment team and contact the occupational therapist currently assigned to this patient. If an occupational therapist is not assigned to this patient, please call [phone]. 05/16/24 1600 General Session Type Treatment OT Received On 05/16/24 Safe Environment Arm band checked;Patient found in supine Subjective Agreeable to Therapy Subjective Comment I've done enough today. Family/Caregiver Present No Precautions Precautions Fall risk Weight Bearing Restrictions Yes RLE Weight Bearing WBAT Pain Assessment Pain Assessment No/denies pain Cognition Cognition Comments pt pleasant but adamantly refusing any OOB activity & remained cooperative with in bed activities Orientation Oriented to person Following Commands Follows one step commands with repetition Compliance/Behavior Easy to engage;Reluctant to participate Balance Balance No ADL ADLS (WDL) X Grooming Grooming: Where assessed Supine, bed Grooming: Level of assistance Maximum Assist Grooming: Assistance with (set up task & sequencing) Bathing Bath Bathed/showered with chlorhexidine (CHG) LE Dressing LE Dressing: Where assessed Supine, bed LE Dressing: Level of assistance Dependent Bed Mobility Bed Mobility No Transfers Transfer No Toilet Transfers Toilet Transfers Not tested Toilet Transfers Comments pt adamantly declined all OOB activity this session Therapeutic Exercise - ROM/STRENGTH ROM/STRENGTH Yes Other Exercise AAROM performed x7 reps on BUE with pt actively engaged and counting, stated, Sevenis enough. Other Comments Comments RN reports pt has been escalated all day, pulled at lines, and has been up to BSC several times today. RN reports pt is finally settled upon OT arrival. Pt pleasant during session. Daily Activity - 6 Clicks Putting on and taking off regular lower body clothing 1 Bathing 2 Toileting 1 Putting on and taking off upper body clothing 2 Personal Grooming 2 Eating Meals 3 Total Score (range 6-24) 11 Score Interpretation 29.04 Safe Environment End of Therapy Session Safe Environment End of Therapy Session Patient left supine in bed;RN notified;Call light within reach;Overbed table within reach Assessment Problem List Debility;Decreased cognition;Decreased endurance;Decreased balance;Decreased functional mobility;Decreased ADL independence;Decreased IADL independence Barriers to Discharge Current Mobility Status;Current ADL Status;Cognition;Decreased safety awareness Plan Plan Alter current plan;If this is the last note, consider this the discharge summary Plan Comments updated d/c rec per patient functional status & therapy participation Recommendation/Plan OT Recommendation Retirement Facility Patient at high risk for Falls;Readmission;Injury due to decreased ability to care for self;Injury due to reduced functional status;Injury due to impaired cognition;Injury due to balance deficits;Injury at home as patient has not returned to prior level of function;Developing impaired skin integrity Recommend SNF due to Risk of injury at home;Unable to safely care for self in the home;Skilled therapy needed to address care for self in the home;Skilled therapy needed to address functional deficits;Skilled therapy needed for patient to return to prior level of independence OT Frequency during current admission 3-5x/wk Treatment/Interventions during current admission ADL/IADL retraining;Balance Training;Bed mobility;Compensatory technique education;Endurance training;Functional activity;Functional mobility training;Functional transfer training;Strengthening;Therapeutic exercise;Transfer training;Therapeutic activi ty Progress during current admission Slow progress, cognitive deficits OT - Next Appointment 05/18/24 Multi-Disciplinary Problems (from Occupational Therapy) Active Problems Problem: Dressings Lower Extremities Start Date: 05/15/24 Goal Start Date Expected End Date End Date STG - Patient to complete lower body dressing mod a utilizing AD PRN. 05/15/24 05/22/24 -- Problem: Grooming Start Date: 05/15/24 Goal Start Date Expected End Date End Date STG - Patient will complete grooming in standing min a utilizing AD PRN. 05/15/24 05/22/24 -- Problem: Transfers Start Date: 05/15/24 Goal Start Date Expected End Date End Date STG - Patient will perform toilet transfer min a utilizing AD PRN. 05/15/24 05/22/24 -- Problem: OT Misc Start Date: 05/15/24 Goal Start Date Expected End Date End Date OT LTG - Misc 1 Pt will perform all ADLs I. 05/15/24 06/12/24 -- ESS TANK TENDER * Raúl Antony RN - 05/16/2024 2:00 PM CST Trauma Services rounding completed on this date. Pt provided with Trauma Services booklet, TSN information, and fall prevention handout. Frailty Screening: BELKYS at this time, will attempt again prior to discharge. Pt is restless and confused, requesting RN to use the restroom. Call light utilized. Family sitting on both sides of patient to help prevent her from climbing out bed. Raúl Antony RN, TCRN Trauma Nurse Coordinator - Trauma and Acute Care Surgery ESS TANK TENDER * Falguni Galvez NP - 05/16/2024 10:03 AM CST Images from the original note were not included. [facility] Floor Daily Progress Note Admit: 05/14/2024 5:23 AM Date: May 16, 2024 Length of Stay: 2 Attending: Raúl Sawant,* POD:* No surgery found * Subjective History: GTS 83 y.o. year old female PMH of Alzheimer's Dementia, diabetes mellitus type 2, hypertension, dementia, presenting as an unwitnessed Ground level fall at [facility] last night when getting up to go to the restroom. [place] scan at outside hospital notable for right superior pubic rami fracture. Needs syncope workup Edited by: Lynne Montero MD at 05/14/2024 1343 Interval History: daughter at bedside, reports poorly controlled pain overnight, will start scheduled pain medications, remove Briscoe- void check, PT/OT evaluation pending Objective Medications: Current Facility-Administered Medications: acetaminophen (TYLENOL) tablet 1,000 mg, 1,000 mg, oral, Q6H [facility], Falguni Galvez, SOFYA amLODIPine (NORVASC) tablet 10 mg, 10 mg, oral, Daily, Vikash Servin MD, 10 mg at 05/16/24 0932 atorvastatin (LIPITOR) tablet 10 mg, 10 mg, oral, Daily, Vikash Servin MD, 10 mg at 05/16/2432 Carrier Fluids for Secondary Infusion - 0.9% Sodium Chloride, 30 mL, intravenous, PRN, Vikash Servin MD cefepime (MAXIPIME) 2,000 mg/20 mL in sterile water (premix) 2,000 mg, 2,000 mg, intravenous, Q12H NHAN, Vikash Servin MD, Last Rate: 240 mL/hr at 05/16/24827, 2,000 mg at 05/16/24827 citalopram (CeleXA) tablet 20 mg, 20 mg, oral, Daily, Vikash Servin MD, 20 mg at 2 dextrose gel in packet 15 g, 15 g, oral, Q15 Min PRN OR dextrose (D10W) 10% bolus 250 mL, 250 mL, intravenous, Q15 Min PRN, Spike Tidwell MD docusate sodium (COLACE) capsule 100 mg, 100 mg, oral, BID, Vikash Servin MD, 100 mg at 05/16/2432 enoxaparin (LOVENOX) syringe 30 mg, 30 mg, subcutaneous, Q12H Malathi JUSTIN Christopher Hiro, MD, 30 mg at 05/16/24827 glucagon injection 1 mg, 1 mg, intramuscular, Q30 Min PRN, Spike Tidwell MD insulin lispro (HumaLOG, ADMELOG) 100 unit/mL injection 0-4 Units, 0-4 Units, subcutaneous, Nightly, Spike Tidwell MD insulin lispro (HumaLOG, ADMELOG) 100 unit/mL injection 0-5 Units, 0-5 Units, subcutaneous, TID with meals, Spike Tidwell MD, 3 Units at 05/15/24 0933 levothyroxine (SYNTHROID) tablet 137 mcg, 137 mcg, oral, Daily - 0600, Spike Tidwell MD, 137 mcg at 05/16/24 0544 lidocaine (ASPERCREME) 4 % patch 1 patch, 1 patch, transdermal, Q24H, Cain Demarco MD, 1 patch at 05/15/24 1448 methocarbamoL (ROBAXIN) tablet 500 mg, 500 mg, oral, TID, Falguni Galvez NP, 500 mg at 05/16/24 0932 oxyCODONE (ROXICODONE) tablet 5 mg, 5 mg, oral, Q4H PRN, Spike Tidwell MD, 5 mg at [address] (PROTONIX) extended release tablet 40 mg, 40 mg, oral, Daily, Vikash Servin MD, 40 mg at 05/16/24 0932 QUEtiapine (SEROquel) tablet 50 mg, 50 mg, oral, Nightly, Vikash Servin MD, 25 mg at 05/15/248 senna-docusate (PERICOLACE) 8.6-50 mg per tablet 1 tablet, 1 tablet, oral, BID, Vikash Servin MD, 1 tablet at 05/16/24 0932 sodium chloride 0.9% flush 0.5-20 mL, 0.5-20 mL, intra-catheter, Q8H NHAN (ALT), Vikash Servin MD, 10 mL at 05/16/24 0829 sodium chloride 0.9% flush 0.5-20 mL, 0.5-20 mL, intra-catheter, PRN, Vikash Servin MD Past Medical: No past medical history on file. Surgical History: Past Surgical History: Procedure Laterality Date CAROTID ENDARTERECTOMY Right 2017 LUMBAR LAMINECTOMY 2012 Is&Os: I/O last 2 completed shifts: In: 670 [P.O.:650; IV Piggyback:20] Out: 950 [Urine:950] I/O this shift: In: 100 [P.O.:100] Out: - Physical Exam: 24hr Min/Max: Temp Min: 36.8 ??C (98.2 ??F) Max: 37.4 ??C (99.3 ??F) Pulse Min: 69 Max: 109 BP Min: 131/50 Max: 186/75 Resp Min: 15 Max: 21 SpO2 Min: 91 % Max: 97 % Physical Exam Constitutional: alert and oriented x1, to self and daughter and no acute distress HEENT: Pupils equal, EOMs grossly normal, mucous membranes moist Respiratory: equal chest rise bilaterally and respirations unlabored Abdomen: soft, non-distended, nontender, last BM unknown Skin: warm, well perfused and extremities non-edematous Labs/Imaging: Recent Labs Lab Units 05/15/24210505/14/24210105/14/24 0535 WBC K/cumm 14.8* 12.7* 18.8* HEMOGLOBIN g/dL 10.8* 11.8* 12.6 HEMATOCRIT % 33.0* 36.5 38.6 PLATELETS K/cumm 224 221 274 Recent Labs Lab Units 05/16/24 0821 05/15/24210505/15/24204705/15/24 0755 05/14/24210105/14/24180905/14/24 0535 SODIUM mmol/L -- 137 -- -- 135 -- 134* POTASSIUM PLASMA mmol/L -- 5.1* -- -- 5.1* -- 4.7 CHLORIDE mmol/L -- 103 -- -- 103 -- 101 CO2 mmol/L -- 22 -- -- 20* -- 23 BUN SERUM mg/dL -- 50* -- -- 44* -- 34* CREATININE mg/dL -- 1.50* -- -- 1.63* -- 1.29* GLUCOSE mg/dL -- 164 -- -- 183 -- 149 POC GLUCOSE MONITOR mg/dL 138 -- 162 < > -- < > -- CALCIUM mg/dL -- 8.7 -- -- 8.5 -- 8.8 < > = values in this interval not displayed. Recent Labs Lab Units 05/14/24 0535 PROTIME (PT) sec 12.2 INR 1.13 XR Pelvis 3 or More Views Result Date: 05/14/2024 There are fractures of the right superior and inferior pubic ramus as well as the right sacral ala.Contrast is noted within the urinary bladder. No definite extraluminal contrast. If there is concern for bladder injury, consider CT cystogram. Electronically signed by: Kendal Braun M.D. CT Body Outside Reference Result Date: 05/14/2024 These images are for Reference purposes only and have not been reviewed by [facility]. There will be no report generated by a [facility] Radiologist. I have independently reviewed and interpreted all relevant lab and radiographic data. Assessment/Plan Trauma Surgical Assessment and Plan Acute pain Assessment & Plan Multi modal with lower dose oxycodone Discharge planning issues Assessment & Plan 05/14 Admitted, syncope, PT/OT 05/16 poorly controlled pain, started schedule pain medications Treatment needed CM intake pending Possible syncopal fall Assessment & Plan - Orthostatics - TTE - Carotid duplex - F/u CT body read. ?Possible RUL consolidation on CXR + leukocytosis in ED for which she received a dose of cefepime in the ED 05/15: Syncope workup pending. 05/16 ECHO still pending Pubic ramus fracture, right, closed, initial encounter (HCC) Assessment & Plan - Orthopedics consult, non-op management - WBAT RLE - Pain control - PT/OT PLAN: Follow up with Dr. Singh, 06/29/21 at 12:30 weight bearing as tolerated. 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) Assessment & Plan Continue home Celexa 20 daily, Seroquel 50 daily Hold home Ativan and consider discontinuing on discharge given falls and age Hypothyroid Assessment & Plan Continue home levothyroxine 137mcg daily Hyperlipidemia Assessment & Plan Continue home atorvastatin 10 daily Atherosclerosis of both carotid arteries Assessment & Plan - History of R CEA (2017) and known completely occluded L ICA - repeat carotid duplex given possible syncope - patient should be on ASA 81mg once able to confirm she has no contraindications FEN: These fluid and electrolyte abnormalities are being treated, evaluated or monitored: Hyperkalemia-- Lokelma Lines/Drains/Tubes: PIV, Briscoe ordered to remove- void check DVT Prophylaxis: Lovenox Q12 Diet: Adult Diet Regular, Restricted; Consistent Carbohydrate Activity: WBAT- PT/OT GI Prophylaxis: Protonix Daily Code Status: Full Code Total time spent included the following activities caring for this patient: Patient chart review, Reviewing/obtaining history, Examination and evaluation, Counseling/educating patient/family/caregiver, Ordering medications/tests/procedures, Referring & communicating with other health career development associate, Documenting clinical information in the health record, Independent interpretation of results, and Care coordination 45 minutes All care plans discussed with rounding/operative attending: MD Falguni Cancino NP Cosigned by Brian Castaneda MD at 05/17/2024 8:29 AM PROCESS TANK TENDER ESS TANK TENDER ESS TANK TENDER * Edie Ramirez, PT - 05/16/2024 8:55 AM CST Physical Therapy Physical Therapy Evaluation Note NOTE: This is a summary note of the richard components of the evaluation session. For full details, review chart for all flowsheets documented on by this physical therapy clinician on this date. Vital signs are documented in the vital signs flowsheet. For questions, please review the treatment team and contact the PT or [employer] currently assigned to this patient. If a physical therapy clinician is not assigned to this patient, please call [phone]. 05/16/24 0855 General Chart Reviewed Yes Session Type Evaluation PT Received On 05/16/24 Safe Environment Arm band checked;Gait belt utilized for all out of bed mobility Subjective Agreeable to Therapy Family/Caregiver Present No Physical Therapy-Patient Goal None stated Precautions Precautions Fall risk Weight Bearing Restrictions Yes RLE Weight Bearing WBAT Precaution Handout Issued No Home Living Type of Home Extended Care Facility Home Layout One level Home Access Level entry Home Mobility Equipment-Available None Home Mobility Equipment-Currently Using None Prior Function Level of [place] Independent functional transfers;Independent with ambulation;Needs assistancewith ADLs Receives Help From Facility staff;Family Driving No 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 Fall within the last 6 months Yes Fall within the last 6 months comment 2 Activity Tolerance Activity Tolerance Comments Jess: deferred Pain Assessment Pain Assessment Advanced Dementia PAINAD (Pain Assessment in Advanced Dementia) Breathing 1 Negative Vocalization 2 Facial Expression 2 Body Language 1 Consolability 1 PAINAD Score 7 Cognition Arousal/Alertness Alert;Appropriate responses to stimuli Orientation Oriented to person (Baseline per daughter) Following Commands Follows one step commands with increased time Compliance/Behavior Easy to engage Sensation Light Touch WFL (B LE) Sensation Comments Small bruise over upper back, otherwise no wounds or edema Static Sitting Balance Static Sitting-Balance Support Bilateral upper extremity supported Static Sitting-Sitting Surface Bed Static Sitting-Level of Assistance Distant supervision Static Standing Balance Static Standing-Balance Support Bilateral upper extremity supported Static Standing-Standing Surface Floor Static Standing-Level of Assistance Minimum assistance Dynamic Standing Balance Dynamic Standing-Balance Support Bilateral upper extremity supported Dynamic Standing-Balance Lateral lean;Forward lean Dynamic Standing-Standing Surface Floor Dynamic Standing-Level of Assistance Minimum assistance Dynamic Standing-Comments Weight shifting, marching in place Bed Mobility 1 Bed Mobility From 1 Supine Bed Mobility Type 1 To Bed Mobility to 1 Edge of bed (toward R) Level of Assistance 1 Moderate Assist Bed Mobility Comments 1 HOB 45 Transfer 1 Transfer From 1 Sit Transfer Type 1 To and from Transfer to 1 Stand Technique 1 Sit to stand;Stand to sit Transfer Device 1 Wheeled walker Transfer Level of Assistance 1 Moderate Assist Transfers 2 Transfer From 2 Bed Transfer Type 2 To Transfer to 2 Chair with arms Technique 2 Stand and step;To right Transfer Device 2 Wheeled walker Transfer Level of Assistance 2 Minimum Assist Ambulation Ambulation No Ambulation 1 Ambulation Comments 1 10MWT: steps to chair only due to pain Stairs Stairs No RLE Assessment RLE Assessment X RLE Comments Pain limited LLE Assessment LLE Assessment WFL Basic Mobility - 6 Click How much difficulty does the patient have: Turning over in bed 2 How much difficulty does the patient currently have: Sitting down and standing up from a chair witharms? 2 How much difficulty does the patient have: Moving from lying on back to sitting on the side of the bed? 2 How much difficulty does the patient have: Moving to and from a bed to a chair including wheelchair? 3 How much help does the patient currently need: Walk in hospital room? 3 How much help from another person does the patient currently need: Climbing 3-5 steps with a railing? 1 Total 6 Click Score (range 6-24) 13 Score Interpretation 33.99 Safe Environment End of Therapy Session Safe Environment End of Therapy Session Patient left in recliner;RN notified;Call light within reach;Chair alarm in place and activated Assessment Prognosis Good Problem List Reduced mobility;Debility;Decreased range of motion;Pain;Decreased safety awareness;Decreased cognition;Impaired judgement Problem List Comments PT Diagnosis: Fall, R zone 1 sacral fx, R inf and sup pubic rami fxs, resultsin above listed activity deficits and impairments which prevent full participation in home and community mobility Recommendation/Plan PT Recommendation/Plan [facility] (Return to facility with PT intervention) Patient at high risk for Falls;Readmission PT Frequency during current admission 5-7x/wk Treatment/Interventions during current admission Balance Training;Bed mobility;Functional activity;Functional transfer training;Gait training;Strengthening;Therapeutic activity;Therapeutic exercise;Transfer training PT - Next Appointment 05/17/24 PT Evaluation Complete Yes PT Time Calculation PT Start Time 854 PT Stop Time 934 PT Time Calculation (min) 40 min Multi-Disciplinary Problems (from Physical Therapy) Active Problems Problem: Mobility Start Date: 05/16/24 Goal Start Date Expected End Date End Date LTG - Patient will ambulate community distance 05/16/24 05/24/24 -- Goal Start Date Expected End Date End Date STG - Patient will ambulate 50ft w/ ww SBA 05/16/24 05/23/24 -- Problem: Transfers Start Date: 05/16/24 Goal Start Date Expected End Date End Date STG - Transfer from bed to chair SBA w/ ww 05/16/24 05/23/24 -- Goal Start Date Expected End Date End Date STG - Patient will perform bed mobility SBA 05/16/24 05/23/24 -- Goal Start Date Expected End Date End Date STG - Patient will transfer sit to and from stand SBA w/ ww 05/16/24 05/23/24 -- Problem: PT Misc Start Date: 05/16/24 Goal Start Date Expected End Date End Date PT STG #1: HEP SBA 05/16/24 05/23/24 -- ESS TANK TENDER * Cain Demarco MD - 05/15/2024 1:51 PM CST Images from the original note were not included. [facility] Floor Daily Progress Note Admit: 05/14/2024 5:23 AM Date: May 15, 2024 Length of Stay: 1 Attending: Raúl Sawant,* POD:* No surgery found * Subjective History: GTS 83 y.o. year old female PMH of Alzheimer's Dementia, diabetes mellitus type 2, hypertension, dementia, presenting as an unwitnessed Ground level fall at [facility] last night when getting up to go to the restroom. [place] scan at outside hospital notable for right superior pubic rami fracture. Needs syncope workup Edited by: Lynne Montero MD at 05/14/2024 1343 Interval History: Agitation overnight, received 50 mg seroquel. Cr: 1.63 (1.29), received 500cc bolus overnight. Syncope workup pending. Weaned to 4L O2 NC. Rhino/Enterovirus positive on RVP. Objective Medications: Current Facility-Administered Medications: acetaminophen (TYLENOL) tablet 650 mg, 650 mg, oral, Q6H PRN, Vikash Servin MD, 650 mg at107/16/23 0938 amLODIPine (NORVASC) tablet 10 mg, 10 mg, oral, Daily, Vikash Servin MD, 10 mg at 05/15/24 0937 atorvastatin (LIPITOR) tablet 10 mg, 10 mg, oral, Daily, Vikash Servin MD, 10 mg at 05/15/24 0937 Carrier Fluids for Secondary Infusion - 0.9% Sodium Chloride, 30 mL, intravenous, PRN, Vikash Servin MD cefepime (MAXIPIME) 2,000 mg/20 mL in sterile water (premix) 2,000 mg, 2,000 mg, intravenous, Q12H NHAN, Vikash Servin MD, Held at 05/15/24 0956 citalopram (CeleXA) tablet 20 mg, 20 mg, oral, Daily, Vikash Servin MD, 20 mg at 937 cyclobenzaprine (FLEXERIL) tablet 10 mg, 10 mg, oral, TID PRN, Vikash Servin MD, 10 mg at107/16/23 0605 dextrose gel in packet 15 g, 15 g, oral, Q15 Min PRN OR dextrose (D10W) 10% bolus 250 mL, 250 mL, intravenous, Q15 Min PRN, Spike Tidwell MD docusate sodium (COLACE) capsule 100 mg, 100 mg, oral, BID, Vikash Servin MD, 100 mg at 05/14/24 1910 enoxaparin (LOVENOX) syringe 30 mg, 30 mg, subcutaneous, Q12H [facility], Vikash Servin MD, 30 mg at 05/15/24 0936 glucagon injection 1 mg, 1 mg, intramuscular, Q30 Min PRN, Spike Tidwell MD insulin lispro (HumaLOG, ADMELOG) 100 unit/mL injection 0-4 Units, 0-4 Units, subcutaneous, Nightly, Spike Tidwell MD insulin lispro (HumaLOG, ADMELOG) 100 unit/mL injection 0-5 Units, 0-5 Units, subcutaneous, TID with meals, Spike Tidwell MD, 3 Units at 05/15/24 0933 levothyroxine (SYNTHROID) tablet 137 mcg, 137 mcg, oral, Daily - 0600, Spike Tidwell MD, 137 mcg at 05/15/24 0409 oxyCODONE (ROXICODONE) tablet 2.5 mg, 2.5 mg, oral, Q4H PRN, Vikash Servin MD, 2.5 mg at 05/15/[address] (PROTONIX) extended release tablet 40 mg, 40 mg, oral, Daily, Vikash Servin MD, 40 mg at 05/15/24 0937 QUEtiapine (SEROquel) tablet 50 mg, 50 mg, oral, Nightly, Vikash Servin MD, 50 mg at 05/14/24 1909 senna-docusate (PERICOLACE) 8.6-50 mg per tablet 1 tablet, 1 tablet, oral, BID, Vikash Servin MD, 1 tablet at 05/15/24 0936 sodium chloride 0.9% flush 0.5-20 mL, 0.5-20 mL, intra-catheter, Q8H NHAN (ALT), Vikash Servin MD, 10 mL at 05/15/24 0947 sodium chloride 0.9% flush 0.5-20 mL, 0.5-20 mL, intra-catheter, PRN, Vikash Servin MD Past Medical: No past medical history on file. Surgical History: Past Surgical History: Procedure Laterality Date CAROTID ENDARTERECTOMY Right 2017 LUMBAR LAMINECTOMY 2013 Is&Os: I/O last 2 completed shifts: In: 1500 [P.O.:480; IV Piggyback:1020] Out: 198 [Urine:198] I/O this shift: In: - Out: 250 [Urine:250] Physical Exam: 24hr Min/Max: Temp Min: 36.5 ??C (97.7 ??F) Max: 37.2 ??C (99 ??F) Pulse Min: 74 Max: 127 BP Min: 126/59 Max: 171/98 Resp Min: 11 Max: 22 SpO2 Min: 88 % Max: 100 % Physical Exam General: Laying in bed, awake, in no acute distress HEENT: Pupils equal, EOMs grossly normal, mucous membranes moist Pulmonary: Non-labored breathing, equal excursion bilaterally Cardiovascular: Regular rate, well perfused Respiratory: equal chest rise bilaterally and respirations unlabored Abdomen: soft, non-distended, non-tender Skin: warm, well perfused and extremities non-edematous Labs/Imaging: Recent Labs Lab Units 05/14/24210105/14/24 0535 WBC K/cumm 12.7* 18.8* HEMOGLOBIN g/dL 11.8* 12.6 HEMATOCRIT % 36.5 38.6 PLATELETS K/cumm 221 274 Recent Labs Lab Units 05/15/24 1251 05/15/24 0755 05/14/24 2102 05/14/24 1810 05/14/24 0535 SODIUM mmol/L -- -- 135 -- 134* POTASSIUM PLASMA mmol/L -- -- 5.1* -- 4.7 CHLORIDE mmol/L -- -- 103 -- 101 CO2 mmol/L -- -- 20* -- 23 BUN SERUM mg/dL -- -- 44* -- 34* CREATININE mg/dL -- -- 1.63* -- 1.29* GLUCOSE mg/dL -- -- 183 -- 149 POC GLUCOSE MONITOR mg/dL 138 276* -- < > -- CALCIUM mg/dL -- -- 8.5 -- 8.8 < > = values in this interval not displayed. Recent Labs Lab Units 05/14/24 0535 PROTIME (PT) sec 12.2 INR 1.13 XR Pelvis 3 or More Views Result Date: 05/14/2024 There are fractures of the right superior and inferior pubic ramus as well as the right sacral ala.Contrast is noted within the urinary bladder. No definite extraluminal contrast. If there is concern for bladder injury, consider CT cystogram. Electronically signed by: Kendal Braun M.D. XR Chest 1 Vw Portable Result Date: 05/14/2024 No prior examinations available for comparison. Correlation [...] it. Electronically signed by: Kendal Braun M.D. CT Body Outside Reference Result Date: 05/14/2024 These images are for Reference purposes only and have not been reviewed by [facility]. There will be no report generated by a [facility] Radiologist. CT Body Outside Consult Result Date: 05/14/2024 This study was initially nominated as a consult on outside images via Outside Image Sharing Service. However, a consult was not performed because no images were included in the packet. If interpretation is desired, uploaded images appropriately and resubmitted for consultation. Accordingly, there will be no separate report of this study generated by a [facility] Radiologist. Dictated by: Kavitha Ba MD The radiology attending physician has personally reviewed this study, and had reviewed and/or edited this written report and agrees with it. Electronically signed by: Kendal Braun M.D. Neuro CT Outside Consult Result Date: 05/14/2024 No acute cervical spine fracture. The findings, conclusions and recommendations within this report do not replace the initial findings, conclusions and recommendations made at the facility where the study was performed based upon the imaging and clinical condition at that time. Comparison with the prior report and clinical history is necessary. The provided images may or may not represent the ambler source data set and thus may contain changes that may lower the accuracy of this second-opinion interpretation. Dictated by: Virgilio Dempsey MD The radiology attending physician has personally reviewed this study, and had reviewed and/or edited this written report and agrees with it. Electronically signed by: Evelyne D. Vo, M.D. Neuro CT Outside Reference Result Date: 05/14/2024 These images are for Reference purposes only and have not been reviewed by [facility]. There will be no report generated by a [facility] Radiologist. XR Outside Reference Result Date: 05/14/2024 These images are for Reference purposes only and have not been reviewed by [facility]. There will be no report generated by a [facility] Radiologist. XR Outside Reference Result Date: 05/14/2024 These images are for Reference purposes only and have not been reviewed by [facility]. There will be no report generated by a [facility] Radiologist. CT Body Outside Reference Result Date: 05/14/2024 These images are for Reference purposes only and have not been reviewed by [facility]. There will be no report generated by a [facility] Radiologist. Neuro CT Outside Reference Result Date: 05/14/2024 These images are for Reference purposes only and have not been reviewed by [facility]. There will be no report generated by a [facility] Radiologist. I have independently reviewed and interpreted all relevant lab and radiographic data. Assessment/Plan Trauma Surgical Assessment and Plan Acute pain Assessment & Plan Multi modal with lower dose oxycodone Discharge planning issues Assessment & Plan 05/14 Admitted, syncope, PT/OT Treatment needed CM intake pending Possible syncopal fall Assessment & Plan - Orthostatics - TTE - Carotid duplex - F/u CT body read. ?Possible RUL consolidation on CXR + leukocytosis in ED for which she received a dose of cefepime in the ED 05/15: Syncope workup pending. Pubic ramus fracture, right, closed, initial encounter (HCC) Assessment & Plan - Orthopedics consult, non-op management - WBAT RLE - Pain control - PT/OT Late onset Alzheimer's disease with behavioral disturbance ([facility]) Assessment & Plan Continue home Celexa 20 daily, Seroquel 50 daily Hold home Ativan and consider discontinuing on discharge given falls and age Hypothyroid Assessment & Plan Continue home levothyroxine 137mcg daily Hyperlipidemia Assessment & Plan Continue home atorvastatin 10 daily Atherosclerosis of both carotid arteries Assessment & Plan - History of R CEA (2017) and known completely occluded L ICA - repeat carotid duplex given possible syncope - patient should be on ASA81 once able to confirm she has no contraindications FEN: These fluid and electrolyte abnormalities are being treated, evaluated or monitored: No fluid or electrolyte disorders Lines/Drains/Tubes: PIV, [place] DVT Prophylaxis: lvx Diet: Adult Diet Regular, Restricted; Consistent Carbohydrate Activity: as able GI Prophylaxis: none Code Status: Full Code Total time spent included the following activities caring for this patient: Patient chart review, Reviewing/obtaining history, Examination and evaluation, Counseling/educating patient/family/caregiver, Ordering medications/tests/procedures, Referring & communicating with other health career development associate, Documenting clinical information in the health record, Independent interpretation of results, and Care coordination 30 minutes All care plans discussed with rounding/operative attending: MD Cain Francis MD Cosigned by Raúl Sawant MD at 05/15/2024 4:05 PM PROCESS TANK TENDER ESS TANK TENDER ESS TANK TENDER Associated attestation - Raúl Sawant MD - 05/15/2024 4:05 PM PROCESS TANK TENDER I have personally seen and examined this patient on the date of service as documented on the Resident note and have reviewed and confirmed the history, physical exam, laboratory,radiographic data, assessment and plan as documented by the resident with the followoing addition Patient has >100,000 klebsiella on urine culture. UTI may be the reason patient had a fall. Willfollow up sensitivities and continue cefepime for now. Likely 3- 4 day course of abx. Raúl Sawant MD Section of Acute and Critical Care Surgery * Krystyna Ledesma - 05/15/2024 1:02 PM CST Occupational Therapy Occupational Therapy Evaluation Note NOTE: This is a summary note of the richard components of the evaluation session. For full details, review chart for all flowsheets documented on by this occupational therapy clinician on this date. Vital signs are documented in vital signs flowsheet. For questions, please review the treatment team and contact the occupational therapist currently assigned to this patient. If an occupational therapist is not assigned to this patient, please call [phone]. 05/15/24 1302 General Chart Reviewed Yes Session Type Evaluation OT Received On 05/15/24 Safe Environment Arm band checked;Patient found in supine;Gait belt utilized for all out of bed mobility (soft wrist restraints donned) Subjective Agreeable to Therapy Subjective Comment Let's go. I'm hurting. Family/Caregiver Present Yes (granddaughter) Occupational Therapy-Patient Goal Pt did not state a goal this date. Precautions Precautions Fall risk Weight Bearing Restrictions Yes RLE Weight Bearing WBAT Precaution Handout Issued No Precaution Comments Verbally reviewed weight bearing restrictions and pt somewhat verbalized understanding. Home Living Type of Home [facility]irement Facility Home Layout One level Home Access Level entry Bathroom Shower/Tub Walk-in shower with threshold Bathroom Toilet Standard Bathroom Equipment Grab bars in shower/tub;Shower chair Home Mobility Equipment-Available None Home Mobility Equipment-Currently Using None Home ADL Equipment-Available None Home ADL Equipment-Currently Using None Prior Function Level of [place] Independent with ADLs;Independent functional transfers;Independent with ambulation;Needs assistance with homemaking Lives With Alone Receives Help From Facility staff (29/12 assist available) Driving No Mode of Transportation Driven by others ADL Assistance Independent Instrumental ADL (IADL) Assistance Needs assistance Vocational/Occupation Retired Leisure Hobbies-yes (Comment) (watch bands) Fall within the last 6 months Yes Fall within the last 6 months comment 1 fall d/t potential tripping ADL ADLS (WDL) X Grooming Grooming: Where assessed Chair Grooming: Level of assistance Moderate Assist (setup task, total balance; washing face) Grooming: Assistance with Balance LE Dressing LE Dressing: Where assessed Supine, bed LE Dressing: Level of assistance Dependent (total task, total balance) LE Dressing: Assistance with Don/doff R sock;Don/doff L sock;Balance;Safety Toilet Transfers Toilet Transfer From Bed Toilet Transfer Type To Toilet Transfer to (sim to arm chair) Toilet Transfer Technique Stand and Step Toilet Transfer: Equipment Hand hold Toilet Transfers Maximal assistance (x2) Toilet Transfers Comments decreased force production, safety, balance Pain Assessment Pain Assessment 0-10 Pain Score 10 - Worst possible pain Pain Type Acute pain Pain Location Buttocks Pain Interventions RN Notified Vision-Basic Assessment Current Vision Does not wear glasses Cognition Cognition Comments Pt cooperative with impulsivity to get OOB and off of bottom d/t pain. Overall Cognitive Status Impaired Arousal/Alertness Appropriate responses to stimuli;Alert Attention Span Attends with cues to redirect;Difficulty attending to directions;Difficulty dividingattention;Distractability Memory Decreased short term memory;Decreased recall of recent events;Decreased recall of precautions;Decreased recall of biographical information Current communication Appears Intact Orientation Oriented to person Following Commands Follows one step commands with repetition Safety Judgment Decreased awareness of need for safety Awareness of Errors Assistance required to identify errors made;Assistance required to correct errors made;Decreased awareness of errors Insight Decreased awareness of deficits Problem Solving Assistance required to generate solutions;Assistance required to identify errors made;Assistance required to implement solutions Compliance/Behavior Easy to engage Perseveration Not present Cognitive Tests Cognitive Tests No (NT d/t pt mental status) Sensation Light Touch WFL Numbness/Tingling No Hand Preference Hand Preference Right Balance Tests Balance Tests Yes [place]etti Sitting Balance 1 Arises 0 Attempts to Arise 0 Immediate Standing Balance (First 5 Seconds) 0 Standing Balance 0 Nudged 0 Eyes Closed 0 Turned 360 Degrees: Steadiness 0 Turned 360 Degrees: Continuity of Steps 0 Sitting Down 0 Balance Score 1 Balance Balance Yes Static Sitting Balance Static Sitting-Balance Support Bilateral upper extremity supported;Feet supported Static Sitting-Sitting Surface Bed Static Sitting-Level of Assistance Close supervision Static Sitting-Comment/# of Minutes safety, balance, impulsive Static Standing Balance Static Standing-Balance Support Bilateral upper extremity supported (on therapist) Static Standing-Standing Surface Floor Static Standing-Level of Assistance Maximum assistance (x2) Static Standing-Comment/# of Minutes decreased force production, safety, balance Bed Mobility Bed Mobility Yes Bed Mobility 1 Bed Mobility From 1 Supine Bed Mobility Type 1 To and from Bed Mobility to 1 Edge of bed Level of Assistance 1 Maximum Assist (x2) Bed Mobility Comments 1 trunk elevation, moving LEs/hips into/OOB Transfers Transfer Yes Transfer 1 Transfer From 1 Sit Transfer Type 1 To and from Transfer to 1 Stand Technique 1 Sit to stand;Stand to sit Transfer Device 1 Hand held assist Transfer Level of Assistance 1 Maximum Assist (x2) Trials/Comments 1 decreased force production, safety, balance Transfers 2 Transfer From 2 Bed Transfer Type 2 To and from Transfer to 2 Chair with arms Technique 2 Stand and step Transfer Device 2 Hand held assist Transfer Level of Assistance 2 Maximum Assist (x2) Trials/Comments 2 decreased force production, safety, balance RUE Assessment RUE Assessment WFL LUE Assessment LUE Assessment WFL Other Comments Comments Pt was seen for initial OT eval this PM and presents as above. Pt donned socks dep and washed face mod a. Pt transferred from supine to/from sitting EOB max x2 for trunk elevation and movingLEs/hips into/OOB, sit to/from stand max x2 and stand step from bed to/from arm chair max x2 d/t decreased force production, safety, balance. Pt unable to tolerate sitting up in recliner d/t pain in bottom. Pt is performing below her functional baseline and would continue to benefit from skilled acute OT while inpatient to maximize independence and safety with functional transfers and participation in ADLs/IADLs. OT to continue to follow acutely. Daily Activity - 6 Clicks Putting on and taking off regular lower body clothing 1 Bathing 2 Toileting 1 Putting on and taking off upper body clothing 2 Personal Grooming 2 Eating Meals 3 Total Score (range 6-24) 11 Score Interpretation 29.04 Safe Environment End of Therapy Session Safe Environment End of Therapy Session Patient left supine in bed;Bed alarm in place and activated;RN notified;Call light within reach;Overbed table within reach (soft wrist restraints donned) Assessment Problem List Debility;Decreased mobility;Decreased safe judgment during ADL;Decreased cognition;Decreased endurance;Decreased balance;Decreased functional mobility;Decreased ADL independence;Decreased IADL independence;Pain;Decreased upper extremity strength Barriers to Discharge Current Mobility Status;Current ADL Status;Cognition;Decreased safety awareness Barrier Comments fall risk Plan Plan Plan of care initiated;If this is the last note, consider this the discharge summary Recommendation/Plan OT Recommendation Inpatient Rehab Facility Patient at high risk for Falls;Readmission;Injury due to decreased ability to care for self;Injury due to reduced functional status;Injury due to impaired cognition;Injury due to balance deficits;Injury at home as patient has not returned to prior level of function Recommend Inpatient Rehab/Acute Rehab due to Ability to actively participate in intensive therapy 3hours/day, 5 days/week or 900 minutes per week;Highly motivated to participate in therapy;Not at baseline due to impaired ability to complete ADLs;Impaired ability to complete functional mobility;Likely to return to the community at discharge with support system in place;Requires greater than 25% physical assistance with most mobility tasks;Requires greater than 25% physical assistance with most ADL tasks;Requires multiple therapy disciplines to address functional deficits;Patient and caregiverrequire specialized skilled training due to new level of function/diagnosis OT Frequency during current admission 5-7x/wk Treatment/Interventions during current admission ADL/IADL retraining;Balance Training;Bed mobility;Endurance training;Equipment eval/education;Functional activity;Functional mobility training;Functional transfer training;Parent/caregiver training and education;Strengthening;Therapeutic activity;Therapeutic exercise;Transfer training;Cognitive retraining OT - Next Appointment 05/16/24 OT - OK to Discharge No OT Evaluation Complete Yes OT Time Calculation OT Start Time 1302 OT Stop Time 1333 OT Time Calculation (min) 31 min Multi-Disciplinary Problems (from Occupational Therapy) Active Problems Problem: Dressings Lower Extremities Start Date: 05/15/24 Goal Start Date Expected End Date End Date STG - Patient to complete lower body dressing mod a utilizing AD PRN. 05/15/24 05/22/24 -- Problem: Grooming Start Date: 05/15/24 Goal Start Date Expected End Date End Date STG - Patient will complete grooming in standing min a utilizing AD PRN. 05/15/24 05/22/24 -- Problem: Transfers Start Date: 05/15/24 Goal Start Date Expected End Date End Date STG - Patient will perform toilet transfer min a utilizing AD PRN. 05/15/24 05/22/24 -- Problem: OT Misc Start Date: 05/15/24 Goal Start Date Expected End Date End Date OT LTG - Misc 1 Pt will perform all ADLs I. 05/15/24 06/12/24 -- Cosigned by Linsey Kaiser OT at 05/15/2024 2:30 PM PROCESS TANK TENDER ESS TANK TENDER ESS TANK TENDER * Bubba Christian MD - 05/15/2024 7:16 AM CST Orthopaedic Trauma Service Daily Progress Note Admit Date: 05/14/2024 Hospital Day: 1 JLW Dx: R zone 1 sacral fx, R inf and sup pubic rami fxs (LC1) Injury Mechanism: fall OI: none PMHx: Dementia, hypothyroid, HTN, CAD, MDD Plan: nonop, trial of mobilization Procedure(s): none Interval History: 05/14/24: AFVSS. Pain moderately controlled. NAEON. H/H 12.6/38.6. Cr 1.29. Exam: NVI, Tert negative. Dispo per primary. Ortho will follow peripherally for mobilization. Edited by: Bubba Christian MD at 05/15/2024 1723 Objective Vitals: 24hr Min/Max: Temp Min: 36.5 ??C (97.7 ??F) Max: 37.2 ??C (99 ??F) Pulse Min: 68 Max: 127 BP Min: 126/59 Max: 171/98 Resp Min: 11 Max: 20 SpO2 Min: 88 % Max: 100 % I/O last 2 completed shifts: In: 1500 [P.O.:480; IV Piggyback:1020] Out: 198 [Urine:198] No intake/output data recorded. Physical Exam: Gen: No acute distress Alert and oriented: x3 Extremity BLE Dressing/wound: n/a Immobilization: n/a Sensation: intact to light touch in the superficial peroneal, deep peroneal, and tibial distributions Motor: fires tibialis anterior, gastroc-soleus complex, extensor hallucis longus, flexor hallucis longus Perfusion: toes WWP Wound Vac(s): n/a Hemovac(s): n/a Tertiary Exam Findings: negative, there are no other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 communicating and was not thrashing around in bed like prior tomedication administration. Granddaughter, Robert, also noted clinical improvement with adequate pain m anagement. It is of this RN's opinion that much of the patient's behavioral issues are related to pain. This was passed on the 6400 RN Berna at bedside. ESS TANK TENDER * Maria C Aguirre RN - 05/19/2024 7:24 PM CST Pt transferring to [facility] after report called to RN. Patient's granddaughter in room for transfer. Pt c/o pain before transfer and was given 0.2 dilaudid for pain prior to transfer. Had all patient belongings with her ESS TANK TENDER * Jen Li RN - 05/17/2024 7:15 PM CST Passed on to [facility] nurse to tell day shift to have welfare case worker call family about placement ESS TANK TENDER * Jen Li RN - 05/17/2024 11:35 AM CST Patient fell at 11:35, witnessed fall no head strike, assisted to ground. Vitals stable notified provider and no new orders at this time ESS TANK TENDER * Danika Richardson RN - 05/14/2024 7:10 PM CST Patient admitted to [id number] room 42788 from ED via strtecher and admitted to GTS Service. Primary team notified of patient arrival. Patient has been oriented to room/visitor policy. Call light discussed and within reach. Bed in low/locked position and explained. Patient educated to call for assistance with activity/repositioning as fall precautions were implemented and explained. Patient hooked upto central monitor, explained practice per unit protocol on vital sign expectations. No patient belongings present. Skin check completed by 2 RNs no skin issues noted. ESS TANK TENDER documented in this encounter ED Notes * Meli Contreras RN - 05/14/2024 5:25 AM CST Patient arrives via EMS from [facility] in [place] as a level 3 trauma transfer after a fall resulting in a pelvic fracture. Patient has a history of dementia. ESS TANK TENDER * Alea Summers RN - 05/14/2024 5:23 AM CST Bed: [facility] Expected date: 05/14/24 Expected time: 12:00 AM Means of arrival: Ambulance Comments: Rachael 5944 Alea Summers RN 05/14/24 0523 ESS TANK TENDER * Alexis Sawyer MD - 05/14/2024 5:22 AM CST HPI Chief Complaint Patient presents with ??? Fall HPI irs agent Note: Patient arrives via EMS from [facility] as a level 3 trauma transfer after a fall resulting in a pelvic fracture. Patient has a history of dementia. Patient is a 83 y.o. female with PMH of Alzheimers, HLD, hypothyroid, HTN presenting to the ED as trauma transfer for stable pelvic fracture following [facility] fall at [facility]. [facility] fall at [facility] tonight when getting up to go to the restroom, unwitnessed by staff. Patient heard yelling on crown complaining of right hip pain. Taken to outside hospital, x-ray showing comminuted fracture of R superior pubic rami. CT head, C-spine negative. Given 2 mg of morphine prior to transfer. On arrival here desat the mid 80s. Patient History: Patient Active Problem List Diagnosis Date Noted ??? 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) 08/27/2022 ??? Hyperlipidemia 08/01/2019 ??? Chronic low back pain 08/01/2019 ??? Hypothyroid 08/01/2019 ??? Memory changes 08/01/2019 ??? Major depressive disorder 08/01/2019 ??? Essential (primary) hypertension 11/18/2016 ??? Atherosclerosis of both carotid arteries 09/15/2016 No past medical history on file. Past Surgical History: Procedure Laterality Date ??? CAROTID ENDARTERECTOMY Right 2016 ??? LUMBAR LAMINECTOMY 2012 Family History Problem Relation Age of Onset ??? Liver disease Father Family history of liver disease - (Added by TW Conv) ??? Cancer Mother Family history of malignant neoplasm - (Added by TW Conv) Social History Tobacco Use ??? Smoking status: Never ??? Smokeless tobacco: Never Substance and Sexual Activity ??? Alcohol use: Not on file ??? Drug use: Not on file ??? Sexual activity: Not on file Social History Social History Narrative ??? Not on file Review of Systems Review of Systems Constitutional: All other systems negative except as mentioned in HPI Physical Exam ED Triage Vitals [05/14/24 0531] Temp Pulse Resp BP SpO2 36.8 ??C (98.3 ??F) 90 19 148/68 (!) 87 % Temp src Heart Rate Source Patient Position BP Location FiO2 (%) -- -- -- -- -- Height Height Method Weight Weight Method -- -- -- -- Physical Exam Constitutional: General: She is not in acute distress. Appearance: Normal appearance. HENT: Head: Normocephalic and atraumatic. Mouth/Throat: Mouth: Mucous membranes are moist. Eyes: Extraocular Movements: Extraocular movements intact. Conjunctiva/sclera: Conjunctivae normal. Pupils: Pupils are equal, round, and reactive to light. Cardiovascular: Rate and Rhythm: Normal rate and regular rhythm. Pulses: Normal pulses. Heart sounds: Normal heart sounds. Pulmonary: Effort: Pulmonary effort is normal. No respiratory distress. Breath sounds: Normal breath sounds. No wheezing. Abdominal: General: Bowel sounds are normal. There is no distension. Palpations: Abdomen is soft. Tenderness: There is no abdominal tenderness. There is no guarding. Musculoskeletal: General: Swelling and tenderness present. Normal range of motion. Cervical back: Normal range of motion. No rigidity. Skin: General: Skin is warm. Neurological: General: No focal deficit present. Mental Status: She is alert. She is disoriented. Psychiatric: Mood and Affect: Mood normal. [facility] Medical Decision Making 83 y.o. female with PMH of Alzheimers, HLD, hypothyroid, HTN presenting to the ED as trauma transfer for stable pelvic fracture following ground level fall at [facility]. Arrives here with new oxygen requirement, possibly 2/2 analgesia, otherwise NAD. Disoriented otherwise nonfocal exam. Neurovascularly intact. We will upload imaging, obtained preop labs, consult Orthopedic surgery further evaluation. Additionally obtain a chest x-ray to further evaluate new oxygen requiring. Amount and/or Complexity of Data Reviewed Labs: ordered. Radiology: ordered. Attending Summary of Care ED Course as of 05/14/24 1503 Time: 05/14 553 Comment: Ortho to see By: Alexis Sawyer MD Time: 05/14 606 Comment: GTS to see By: Alexis Sawyer MD Time: 05/14 1210 Comment: Surgical intensive care unit indication is her high-flow nasal cannula rate remains 8 liters/minute. She has been like this for several hours and we suspect it is a combination rhino virus as well as obesity hypoventilation syndrome. Discussed with our colleagues in Trauma and we believe the ICU might be the best destination. By: Bruno Davey MD Time: 05/14 1216 Comment: Case reviewed with trauma attending. Seems stable on current high flow oxygen so will attempt An observation unit (OU) admission. By: Bruno Davey MD Time: 05/14 6987 Comment: Brief attg note at sign out: superior and inf pubic rami fracture. OHS, rhinovirus. Now more agitated/delirious likely. Hypoxia, requiring as much as 10L O2. By: Berto Olivas MD Pubic ramus fracture, right, open, initial encounter (HCC) Fall, initial encounter Hypoxia Alexis Sawyer MD Resident 05/14/24 0654 Cosigned by Kenneth Vallecillo MD at 05/14/2024 9:49 PM PROCESS TANK TENDER ESS TANK TENDER ESS TANK TENDER Associated attestation - Kenneth Vallecillo MD - 05/14/2024 9:49 PM PROCESS TANK TENDER I have seen and examined the patient on 05/14/2024. I agree with the findings and plan of care as documented in the resident's note. documented in this encounter Miscellaneous Notes * Plan of Care - Yvette Fan RN - 05/20/2024 3:50 PM CST 05/16/24 1016 Discharge Summary Discharge Disposition halfway (rn long term care care) Specify Facility [facility] Contact Number [phone] Discharge Records Chart Copied Recommended Discharge Level of Care halfway (rn long term care care) Actual Discharge Level of Care halfway (fdc care) Does Actual Level of Care Match Care Team Recommendation? Yes Post Acute Care Plan Home Care Services N/A OP Services N/A DME N/A Post Acute Care Facility Yes Referral Status Accepted Post Acute Facility Name and Contact [facility] [place] [phone] Accepted Post Acute Care Discharge Additional Assistance Does the patient need discharge transport arranged? Yes Type of Transportation Ambulance/EMS Has discharge transport been arranged? Yes Details of Transportation [place] [phone] Trip# [phone] D/C Transport Anticipated Date 05/20/24 D/C Transport Anticipated Time 1600 Discharge Transportation Communication Mode of transport has been discussed with the patient/family. All are agreeable to the plan and understand their responsibilities to ensure the safe transfer. No further CM/SW intervention is anticipated at this time. Post Discharge Care Provider Post Discharge Care Plan DC Summary has been faxed to next level of care provider (see Follow Up Providers) Per medical team, patient is medically stable for discharge at this time. Patient is returning to [facility]. CM spoke with the patient/family, admissions, medical team, and RN regarding discharge planning, and all are agreeable to discharge. Post-acute care transfer packet completed and will be sent with the patient. RN provided with report number [phone] to nurses station. Room # TBD provided by facility. . Mode of transport has been discussed with the patient/family, MD, nursing staff. All are agreeable to plan and understand their responsibilities to ensure the safe transfer. [facility] [phone], trip # [id number]. Patient/family informed patient may require ambulance transport. environmental manager informed patient/family that even if the patient's insurance benefit includes ambulance transport, it may not cover the full cost of the transportation. The patient may be responsible for any [id number] cost, includingmileage beyond the nearest appropriate facility. Patient/family voiced understanding. Yvette SANTO,loom overhauler ESS TANK TENDER * Plan of Care - Yvette Fan RN - 05/20/2024 1:59 PM CST 05/20/24 1227 Communications Important Message from Medicare notice given to patient? Yes IM letter completed with patient/advertising account representative at bedside. Patient/advertising account representative were informed ofthe planned discharge date, the date the beneficiary's financial liability begins, the beneficiary's appeal rights, and how and when to initiate an appeal. Patient/advertising account representative were provided a copy of the IM letter and IM letter was placed in unit???s designated medical record bin to be uploaded into the patient???s chart. ESS TANK TENDER * Initial Assessments - Angelia Paredes LCSW - 05/20/2024 1:29 PM PROCESS TANK TENDER Social Work Assessment Clinical Dx: Pubic ramus fracture, right, open, initial encounter (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 Payor Source: Medicare, Medicaid Race: White/ Ethnicity: Non- Sexual Orientation : BELKYS Gender Identity: Female Service : None (05/20/241322) Current Situation: Current Situation Living Arrangements: halfway Type of Residence: halfway Income: Jail/Pension Education Level : Unable to assess How do you Pay for Medication: Insurance coverage Current Transportation: Family/friends, Other (Comment) (Nursing facility) What do you do with your Free Time: BELKYS (05/20/241322) Legal History: Legal History Legal Information : No legal issues (05/20/241322) Support Systems and Spirituality: Support Systems and Spirituality Support System: Children Children Name/Contact Information: Dandy Cuellar, Daughter [phone] and Torrey Navarro, Son [phone] Participation from Patient's Support System: Dandy reported that the patient has good support from her and her brother along with the nursing staff. Do you have a Mandaen Preference or Affiliation?: Yes Preference/Affiliation : Jain Are there any Mandaen Practices that are important to maintain while admitted?: (BELKYS) Do you have Cultural Factors that are important to you?: (BELKYS) Description of Childhood: BELKYS History of physical abuse? : Unable to answer History of physically abusing others? : Unable to answer History of sexual abuse?: Unable to answer History of sexually abusing others? : Unable to answer History of Mental/Emotional Abuse? : Unable to answer (05/20/241322) Strengths, Assets, Liabilities and Stressors: Strengths, Assets, Liabilities, and Stressors Strengths (Must Choose Two): Managing surrounding demands and opportunities, Interpersonal relationships and supports,i.e., family, friends, peers, Access to housing/residential stability Patient Assets: Access to services, Home, Income, Insured, Supportive family Patient Barriers : Denial/Lack of insight, Poor physical health Current Stressors: Chronic illness (05/20/24 1323) SDOH Transportation Needs: No Transportation Needs (05/20/2024) PRAPARE - Transportation Lack of Transportation (Medical): No Lack of Transportation (Non-Medical): No Financial Resource Strain: Low Risk (05/20/2024) Overall Financial Resource Strain (CARDIA) Difficulty of Paying Living Expenses: Not hard at all Housing Stability: Low Risk (05/20/2024) Housing Stability Vital Sign Unable to Pay for Housing in the Last Year: No Number of Times Moved in the Last Year: 0 Homeless in the Last Year: No Social Connections: Moderately Isolated (05/20/2024) Social Connection and Isolation Panel [NHANES] Frequency of Communication with Friends and Family: More than three times a week Frequency of Social Gatherings with Friends and Family: More than three times a week Attends Mandaen Services: Never Active Member of Clubs or Organizations: Yes Attends Club or Organization Meetings: 1 to 4 times per year Marital Status: Food Insecurity: No Food Insecurity (05/20/2024) Hunger Vital Sign Worried About Running Out of Food in the Last Year: Never true Ran Out of Food in the Last Year: Never true Tobacco Use: Low Risk (03/17/2024) Patient History Smoking Tobacco Use: Never Smokeless Tobacco Use: Never Passive Exposure: Not on file Alcohol Use: Not on file PHQ Screening Over the last 2 weeks, how often have you been bothered by any of the following problems? Little Interest or Pleasure in Doing Things: (BELKYS) Feeling Down, Depressed, or Hopeless: (BELKYS) Over the past 2 weeks, how often have you been bothered by any of the following problems? Little Interest or Pleasure in Doing Things: (BELKYS) Feeling Down, Depressed, or Hopeless: (BELKYS) Substance Abuse, Mental Health, and Trauma History: Chemical Dependency, Mental Health & Trauma History Chemical Dependency: BELKYS, None noted or reported by daughter Dandy Mental Health: BELKYS, None noted or reported by geraldo Sanchez (05/20/24 1323) Risk to Self and Others: Risk to Self and Others Violence risk to self in past 6 months? : Unable to assess Self Harm/Suicidal Ideation Plan: Unable to assess Violence risk to others in past 6 months? : Unable to assess Any lifetime risk of violence to others? : Unable to assess (05/20/24 1323) Impressions and Recommendations: HPI per MD documentation: 83 y.o. year old female PMH of Alzheimer's Dementia, diabetes mellitus type 2, hypertension, dementia, presenting as an unwitnessed [facility] right pubic ramus fracture . Social work consulted for high readmission risk. Per chart review, the patient is currently A&Ox1, which is the patient's baseline. Patient is unable to participate in social work assessment. Social work called patient's daughter Dandy Cuellar [phone] to complete social work assessment. Discussed bills, food, transportation, housing, and social supports. Patient' daughter Dandy denied current concerns or barriers in these areas. [facility] Dandy stated she would like the patient to return at discharge. Dandy stated that all patient's needs at being met at the [facility]. Dandy stated that she is wanting a call from the patient's welfare case worker regarding a discharge planning update. Social work informed Dandy that social work would reach out to the patient's welfare case worker.Dandy acknowledged and thanked social work. Social work messaged patient's CM Yvette and informed CM that Dandy is requesting an update. CM acknowledged. Patient is currently A&Ox1, which is the patient's baseline. Patient is unable to appoint a surrogate decision maker. Per patient daughter, the patient does not have a DPOA. Patient's daughter Dandy stated she makes decisions for the patient. Geraldo Gilbert [phone] No SW needs identified at this time. CM to follow for discharge planning. ALEXANDRA Manzanares, REPAIR DEPARTMENT SUPERVISOR ESS TANK TENDER 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 Patient Information: Comprehensive Nursing Documentation Attending Provider: Raúl Sawant MD Allergies: No Known Allergies Isolation: Droplet Infection: Rhino/Enterovirus (05/14/24) Code Status: FULL Ht: 163.8 cm (5' 4.5 ) Wt: 100.7 kg (222 lb) Admission Cmt: None Principal Problem: None Elopement Risk Date/Time Risk/Reason for Elopement User 05/14/24 0536 No risk DMF Intake/Output 05/17/24 0700 - 05/18/24 0659 05/18/24 0700 - 05/19/24 0659 05/19/24 07 - 05/20/24 0659 Total Total 3152-9464 9765-4632 7117-3794 Total Intake (ml) 10 220 -- 100 -- 100 Output (ml) 1675 1050 375 125 100 600 Net (ml) -1665 -830 -375 -25 -100 -500 Patient Lines/Drains/Airways Status Active Airway / Central venous catheter / Drain / Epidural cathether / Intraosseous line / Peripherally inserted central catheter / Peripheral intravenous line / Arterial line Name Placement date Placement time Site Days Urethral Catheter 05/17/24 1607 -- 2 Peripheral IV 05/17/24 22 G Right Antecubital 05/17/24 2133 Antecubital 2 Active Wound Assessment Active Wound / Pressure injury / Lamb / Negative Pressure Wound / Incision None Chavez Fall Risk Flowsheet Row Most Recent Value Prior Fall Event (Autopopulated from EMR) 05/17/2024 (25 points) ............filed at 05/20/2024 0754 History of Falling 25 ............filed at 05/20/2024 0754 Secondary Diagnosis 15 ............filed at 05/20/2024 0754 Ambulatory Aids 15 ............filed at 05/20/2024 0754 Intravenous Therapy/Heparin/Saline Lock 20 ............filed at 05/20/2024 0754 Gait/Transferring 10 ............filed at 05/20/2024 0754 Mental Status 15 ............filed at 05/20/2024 075 Chavez Fall Risk Score 100 ............filed at 05/20/2024 075 Vital Signs 05/19 0700 05/20 0659 05/20 0700 05/20 1028 Most Recent Temp (??C) 36.6 - 37.4 36.6 36.6 (97.9) 05/20 754 Pulse 74 - 94 76 76 05/20 754 Resp 16 - 20 20 20 05/20 754 SpO2 (%) 86 - 100 98 98 05/20 754 BP 145/53 - 166/63 180/67 180/67 05/20 754 MAP (mmHg) 79 - 105 99 99 05/20 754 Non Violent Restraint Flowsheet Row Most Recent Value Pre-Application Assessment (NV) Restraint Alternatives Attempted and Failed Reorientation to surroundings, Diversionary activities filed at 05/17/2024 190 Restraint Reason (NV) Clinical Justification Interference with medical treatment, Picking/pulling at drains/lines/tubes/devices filed at 05/17/2024 1900 Restraint Type Every 2 Hours (NV) Mittens-as Restraint R (NV) DISCONTINUED filed at 05/17/2024 1000 Mittens-as Restraint L (NV) DISCONTINUED filed at 05/17/2024 1000 Soft Restraint R Wrist (NV) DISCONTINUED [removed by pt family, pt is cooperative and not interferring with care at this time] filed at 05/17/2024 2100 Soft Restraint L Wrist (NV) DISCONTINUED filed at 05/17/2024 2100 4 Side Rails Up (NV) DISCONTINUED filed at 05/17/2024 2100 Default Flowsheet Data (most recent) Endurance Tests No documentation. Nursing Nutrition Appetite 05/19 2000 Poor 05/19 1215 Poor 05/18 0900 Poor Nursing Mobility Activity 05/20 1027 Resting in bed 05/20 0900 Resting in bed;Sleeping 05/20 0800 Resting in bed 05/20 075 Resting in bed;Sleeping 05/20 0700 Resting in bed;Sleeping 05/20 0019 Resting in bed 05/20 0016 Resting in bed 05/19 2022 Turn 05/19 2000 Resting in bed 05/19 1800 Turn 05/19 1600 Turn 05/19 1500 Turn 05/19 1400 Chair;Turn 05/19 1300 Chair 05/19 1200 Chair;Turn 05/19 1100 Chair 05/19 1000 Resting in bed 05/19 0900 Chair;Turn 05/19 0800 Chair 05/19 0700 Resting in bed 05/19 0600 Resting in bed 05/19 0500 Sleeping 05/19 0400 Sleeping 05/19 0300 Sleeping 05/19 0200 Sleeping 05/19 0100 Resting in bed 05/19 0000 Sleeping 05/18 2300 Sleeping 05/18 2200 Resting in bed 05/18 2100 Resting in bed 05/18 2000 Resting in bed 05/18 1900 Resting in bed 05/18 1800 Resting in bed 05/18 1700 Resting in bed 05/18 1600 Resting in bed 05/18 1500 Chair;Resting in bed 05/18 1400 Chair 05/18 1300 Resting in bed;Sleeping 05/18 1200 Resting in bed;Sleeping 05/18 1100 Sleeping;Resting in bed 05/18 1000 Resting in bed;Sleeping 05/18 0900 Resting in bed 05/18 0800 Resting in bed 05/18 0700 Resting in bed 05/18 0600 Resting in bed 05/18 0500 Sleeping 05/18 0400 Sleeping 05/18 0300 Sleeping 05/18 0200 Sleeping 05/18 0100 Resting in bed 05/18 0000 Sleeping 05/17 2300 Resting in bed 05/17 2200 Resting in bed 05/17 2100 Resting in bed 05/17 2000 Resting in bed 05/17 1900 Commode;Resting in bed 05/17 1700 Resting in bed 05/17 1500 Resting in bed 05/17 1300 Resting in bed 05/17 1100 Chair Patient Assistance 05/19 2000 Moderate assist, patient does 50-74% 05/18 1600 Moderate assist, patient does 50-74% 05/18 1100 Moderate assist, patient does 50-74% 05/18 0900 Moderate assist, patient does 50-74% 05/18 0700 Moderate assist, patient does 50-74% 05/17 1100 Moderate assist, patient does 50-74% Patient Repositioned 05/19 2000 Supine;Pillow support 05/19 1800 Left side;Pillow support 05/19 1600 Pillow support;Supine 05/19 1500 Right Side;Pillow support 05/19 0800 Other (Comment) (Comment: sitting up in chair) 05/19 0500 Right Side;Pillow support 05/19 0300 Supine;Pillow support 05/19 0100 Left side 05/18 2300 Right Side 05/18 2100 Left side 05/18 1900 Supine;Pillow support 05/18 1800 Supine;Pillow support 05/18 1600 Left side;Pillow support 05/18 1100 Supine;Pillow support 05/18 0900 Left side;Pillow support 05/18 0700 Supine;Pillow support 05/18 0500 Left side;Pillow support 05/18 0300 Supine 05/18 0100 Right Side;Pillow support 05/17 2300 Supine 12 2100 Left side;Pillow support 05/17 1900 Supine 12 1700 Left side;Pillow support 05/17 1500 Supine;Pillow support Bed Position 05/19 0800 HOB 30 05/18 0700 HOB 30 05/18 0400 HOB 30 05/17 1300 HOB 30 Heels/Feet 05/19 0800 Heels elevated off bed 05/18 1900 Heels elevated off bed Range of Motion 05/20 0754 Active;All extremities 05/19 2000 Active;All extremities 05/19 0800 Active;All extremities 05/19 0600 Active;All extremities 05/18 2000 Active;All extremities 05/18 1900 Active;All extremities 05/18 1800 Active;All extremities 05/18 1700 Active;All extremities 05/18 1600 Active;All extremities 05/18 1100 Active;All extremities 05/18 0900 Active;All extremities 05/18 0700 Active;All extremities 05/17 1900 Active;All extremities Type of Device 05/19 07 Mechanical compression 05/18 1900 Mechanical compression 05/17 1900 Mechanical compression Mechanical Compression Site 05/20 0748 Bilateral 05/19 07 Bilateral 05/18 1900 Bilateral 05/17 1900 Bilateral Mechanical Compression Type 05/20 0748 IPC/SCD 05/19 0700 IPC/SCD 05/18 1900 IPC/SCD 05/17 1900 IPC/SCD Mechanical Compression Status 05/20 0748 Off 05/19 0700 Refused 05/18 1900 Refused 05/17 1900 On Default Flowsheet Data (Last 24 Hours) Sitter Documentation Row Name 05/20/24 0900 05/20/24 0800 05/20/24 0700 RN Oversight of Sitter Sitter Continued Continued Continued Sitter Type Medical/Safety Medical/Safety Medical/Safety RN Safety Check No unsafe behaviors observed, safe environment maintained No unsafe behaviors observed, safe environment maintained No unsafe behaviors observed, safe environment maintained Row Name 05/20/24 0600 05/20/24 0500 05/20/24 0400 RN Oversight of Sitter Sitter Continued Continued Continued Sitter Type Medical/Safety Medical/Safety Medical/Safety RN Safety Check No unsafe behaviors observed, safe environment maintained No unsafe behaviors observed, safe environment maintained No unsafe behaviors observed, safe environment maintained Row Name 05/20/24 0300 05/20/24 0200 05/20/24 0100 RN Oversight of Sitter Sitter Continued Continued Continued Sitter Type Medical/Safety Medical/Safety Medical/Safety RN Safety Check No unsafe behaviors observed, safe environment maintained No unsafe behaviors observed, safe environment maintained No unsafe behaviors observed, safe environment maintained Row Name 05/20/24 0000 05/19/24 2300 05/19/24 2200 RN Oversight of Sitter Sitter Continued Continued Continued Sitter Type Medical/Safety Medical/Safety Medical/Safety RN Safety Check No unsafe behaviors observed, safe environment maintained No unsafe behaviors observed, safe environment maintained No unsafe behaviors observed, safe environment maintained Row Name 05/19/24 2100 05/19/24 2000 RN Oversight of Sitter Sitter Continued Continued Sitter Type Medical/Safety Medical/Safety RN Safety Check No unsafe behaviors observed, safe environment maintained No unsafe behaviors observed, safe environment maintained , Head to Toe Assess Default Flowsheet Data (most recent) Complex Assessment - 05/20/24 0754 Neurological Neuro (WDL) X Level of Consciousness Awake;Drowsy Orientation Oriented to person Behavior Calm Speech Clear Language No aphasia (normal) Facial Palsy Normal R Pupil Size (mm) 3 R Pupil Reaction Brisk L Pupil Size (mm) 3 L Pupil Reaction Brisk Motor Function/Sensation Assessment [employer];Dorsiflexion;Plantar flexion;Motor response;Sensation;Motor strength R Hand [employer] Strong L Hand [employer] Strong R Foot Dorsiflexion Moderate L Foot Dorsiflexion Moderate R Foot Plantar Flexion Moderate L Foot Plantar Flexion Moderate RUE Motor Response Moves voluntarily RUE Sensation Normal sensation RUE Motor Strength Full power assist/with resistance (5) LUE Motor Response Moves voluntarily LUE Sensation Normal sensation LUE Motor Strength Full power assist/with resistance (5) RLE Motor Response Moves voluntarily RLE Sensation Normal sensation RLE Motor Strength Weak, but moves against resistance (gravity+resistance) (4) LLE Motor Response Moves voluntarily LLE Sensation Normal sensation LLE Motor Strength Weak, but moves against resistance (gravity+resistance) (4) Gaze Normal When instructed to perform tasks Completes one task correctly Other Neuro Symptoms Fatigue;Forgetful Confusion Assessment Method-ICU (CAM-ICU): Not Indicated with a RASS of -4/-5 Feature 3: Altered Level of Consciousness Negative Sedation Scales [place] Opioid-Induced Sedation Scale (POSS) 2 Foster Agitation Sedation Scale (RASS) 0 Caprice Coma Scale Eye Opening 4 Best Verbal Response 4 Best Motor Response 6 [place] Coma Scale Score 14 HEENT HEENT (WDL) X Head and Face Symmetrical R Eye Intact L Eye Intact R Ear Intact L Ear Intact Nose Intact Lips Symmetrical;Intact Throat Intact Tongue Dry;Other (Comment) brown stains Mucous Membrane(s) Moist;[place];Intact Teeth and Gums Missingteeth Neck Symmetrical;Trachea midline Respiratory Respiratory Depth/Rhythm Regular Respiratory Effort Unlabored Respiratory Effort Characteristics Dyspnea exertion Chest Assessment Symmetrical;Chest expansion symmetrical Bilateral Breath Sounds (All Lobes) Clear;Diminished Clubbing No Cough Encouraged Cough and Deep Breathe Cough and Deep Breathe Yes Cardiac Cardiac Symptoms None Peripheral Vascular Peripheral Vascular (WDL) X Cyanosis None Capillary Refill Less than/equal to 3 seconds (All extremities) Pulses R radial;L radial;R pedal;L pedal RUE Neurovascular Assessment RUE Capillary Refill Less than/equal to 3 seconds RUE Color Appropriate for ethnicity RUE Temperature/Moisture Warm;Dry RUE Sensation Good sensation LUE Neurovascular Assessment LUE Capillary Refill Less than/equal to 3 seconds LUE Color Appropriate for ethnicity LUE Temperature/Moisture Warm;Dry LUE Sensation Good sensation RLE Neurovascular Assessment RLE Capillary Refill Less than/equal to 3 seconds RLE Color Appropriate for ethnicity RLE Temperature/Moisture Warm;Dry RLE Sensation Good sensation LLE Neurovascular Assessment LLE Capillary Refill Less than/equal to 3 seconds LLE Color Appropriate for ethnicity LLE Temperature/Moisture Warm;Dry LLE Sensation Good sensation Integumentary Integumentary (WDL) X Skin Color Appropriate for ethnicity Skin Condition/Temp Warm;Dry Skin Turgor Non-tenting Integumentary Additional Assessments Yes-Ricardo Ricardo Scale Sensory Perceptions 3 Moisture 3 Activity 2 Mobility 3 Nutrition 3 Friction and Shear 2 Ricardo Scale Score 16 Pressure Injury Prevention Pressure Ulcer Prevention Interventions Keep skin clean and dry (Sensory Perception/Moisture);Provide adequate nutrition/fluid intake (Nutrition);Use draw sheet when pulling patient up in bed (Friction & Shear);Use pillows/wedge for positioning (Activity/Mobility) Musculoskeletal Musculoskeletal (WDL) X RUE Full movement LUE Full movement RLE Injury/trauma LLE Full movement Range of Motion Active;All extremities Musculoskeletal Additional Assessments Generalized weakness B.M.A.T. - Bedside Mobility Assessment Tool for Nurses Is patient able to participate in the BMAT? Yes BMAT Level Level 2 - [place] Chavez Fall Risk Secondary Diagnosis 15 Ambulatory Aids 15 Intravenous Therapy/Heparin/Saline Lock 20 Gait/Transferring 10 Mental Status 15 History of Falling 25 Prior Fall Event (Autopopulated from EMR) 05/17/2024 (25 points) Chavez Fall Risk Score 100 Chavez Fall Risk Score (Retired) 100 Fall Risk Interventions All Low Fall Interventions Applied Yes All Moderate Fall Interventions Applied Yes All High Fall Risk Interventions Applied Yes Additional Interventions Applied Other (Comment) sitter Gastrointestinal Gastrointestinal (WDL) WDL Abdomen Inspection Soft;Nondistended Palpation Soft;Nontender Last BM Date 05/19/24 GI Symptoms None Genitourinary Genitourinary (WDL) X Urinary Catheter in Place Yes Genitourinary Symptoms Incontinence Genitalia Female Genitalia Intact;Foreign object Foreign Object briscoe Foreign Object Location Urethra Psychosocial Psychosocial (WDL) X Facial Expression Flat Mood Irritable Eye Contact Avoids Exhibited Behavior Impulsive Appearance/Hygiene Appropriate/neat/clean , Meds and Admin Active Only All Meds/Most Recent Administrations morphine injection 2 mg [[id number]] Ordering Provider: Alexis Sawyer MD Status: Completed (Past End Date/Time) Ordered On: 05/14/24619 Starts/Ends: 05/14/24620 - 05/14/24625 Ordered Dose (Remaining/Total): 2 mg (0/1) Route: intravenous Frequency: Once Ordered Rate/Order Duration: -- / 4 Minutes Line Med Link Info Comment Peripheral IV 05/14/24 20 G Anterior;Distal;Left Forearm 05/14/24621 by Sarina Chavira RN-- Timestamps Action Dose / Duration Route Other Information 05/14/24621 Given 2 mg 4 Minutes intravenous Performed by: Sarina Chavira RN Scanned Package: 1133-5168-80 haloperidol (HALDOL) injection 5 mg [[id number]] Ordering Provider: Alexis Sawyer MD Status: Completed (Past End Date/Time) Ordered On: 05/14/24630 Starts/Ends: 05/14/24631 - 05/14/24631 Ordered Dose (Remaining/Total): 5 mg (0/1) Route: intravenous Frequency: Once Ordered Rate/Order Duration: -- / -- Admin Instructions: If administered IV push, administer over 5 min for adults Line Med Link Info Comment Peripheral IV 05/14/24 22 G Left;Posterior Hand 05/14/24631 by Sarina Chavira RN -- Timestamps Action Dose Route Other Information 05/14/24631 Given 5 mg intravenous Performed by: Sarina Chavira RN Scanned Package: 78159-474-37 ketorolac (TORADOL) 15 mg/mL injection 15 mg [[id number]] Ordering Provider: Alexis Sawyer MD Status: Completed (Past End Date/Time) Ordered On: 05/14/24652 Starts/Ends: 05/14/24653 - 05/14/24715 Ordered Dose (Remaining/Total): 15 mg (0/1) Route: intravenous Frequency: Once Ordered Rate/Order Duration: -- / -- Admin Instructions: For Adult IV push, administer over 15 seconds Line Med Link Info Comment Peripheral IV 05/14/24 20 G Left Hand 05/14/24715 by Sarina Chavira RN -- Timestamps Action Dose Route Other Information 05/14/24715 Given 15 mg intravenous Performed by: Sarina Chavira RN Scanned Package: 51963-782-08 vancomycin 1500 mg/515 mL in sodium chloride 0.9% (premix) 1,500 mg [[id number]] Ordering Provider: Frandy Ferreira MD Status: Completed (Past End Date/Time) Ordered On: 05/14/24749 Starts/Ends: 05/14/24750 - 05/14/24 0956 Ordered Dose (Remaining/Total): 15 mg/kg (0/1) Route: intravenous Frequency: Once Ordered Rate/Order Duration: -- / 90 Minutes Line Med Link Info Comment Peripheral IV 05/14/24 20 G Left Hand 05/14/24 08 by Sarina Chavira RN -- Timestamps Action Dose / Duration Route Other Information 05/14/24 08 New Bag 1,500 mg 90 Minutes intravenous Performed by: Sarina Chavira RN Scanned Package: 6746-8444-26 haloperidol (HALDOL) injection 5 mg [[id number]] Ordering Provider: Frandy Ferreira MD Status: Completed (Past End Date/Time) Ordered On: 05/14/24953 Starts/Ends: 05/14/24954 - 05/14/24956 Ordered Dose (Remaining/Total): 5 mg (0/1) Route: intravenous Frequency: Once Ordered Rate/Order Duration: -- / -- Admin Instructions: If administered IV push, administer over 5 min for adults Line Med Link Info Comment Peripheral IV 05/14/24 22 G Right Hand 05/14/24956 by Denise Mendez RN -- Timestamps Action Dose Route Other Information 05/14/24956 Given 5 mg intravenous Performed by: Denise Mendez RN Scanned Package: 70142-667-74 fentaNYL (SUBLIMAZE) preservative free injection 50 mcg [[id number]] Ordering Provider: Frandy Ferreira MD Status: Completed (Past End Date/Time) Ordered On: 05/14/24953 Starts/Ends: 05/14/24954 - 05/14/24956 Ordered Dose (Remaining/Total): 50 mcg (0/1) Route: intravenous Frequency: Once Ordered Rate/Order Duration: -- / -- Line Med Link Info Comment Peripheral IV 05/14/24 20 G Left Hand 05/14/24956 by Denise Mendez RN -- Timestamps Action Dose Route Other Information 05/14/24956 Given 50 mcg intravenous Performed by: Denise Mendez RN Scanned Package: 7388-0219-41 amLODIPine (NORVASC) tablet 10 mg [[id number]] Ordering Provider: Vikash Servin MD Status: Dispensed Ordered On: 05/14/241757 Start: 05/14/241829 Ordered Dose (Remaining/Total): 10 mg (--/--) Route: oral Frequency: Daily Ordered Rate/Order Duration: -- / -- Timestamps Action Dose Route Other Information 05/20/24 0829 Given 10 mg oral Performed by: Maritza Rene RN Scanned Package: 50461-789-67 atorvastatin (LIPITOR) tablet 10 mg [[id number]] Ordering Provider: Vikash Servin MD Status: Dispensed Ordered On: 05/14/241757 Start: 05/14/241829 Ordered Dose (Remaining/Total): 10 mg (--/--) Route: oral Frequency: Daily Ordered Rate/Order Duration: -- / -- Timestamps Action Dose Route Other Information 05/20/24828 Given 10 mg oral Performed by: Maritza Rene RN Scanned Package: 95615-939-57 citalopram (CeleXA) tablet 20 mg [[id number]] Ordering Provider: Vikash Servin MD Status: Dispensed Ordered On: 05/14/241757 Start: 05/14/241829 Ordered Dose (Remaining/Total): 20 mg (--/--) Route: oral Frequency: Daily Ordered Rate/Order Duration: -- / -- Timestamps Action Dose Route Other Information 05/20/24829 Given 20 mg oral Performed by: Maritza Rene RN Scanned Package: 5213-4247-06 docusate sodium (COLACE) capsule 100 mg [[id number]] Ordering Provider: Vikash Servin MD Status: Dispensed Ordered On: 05/14/241757 Start: 05/14/242099 Ordered Dose (Remaining/Total): 100 mg (--/--) Route: oral Frequency: 2 times daily Ordered Rate/Order Duration: -- / -- Timestamps Action Dose Route Other Information 05/19/242052 Given 100 mg oral Performed by: Hemal Sales RN Scanned Package: [id number] (PROTONIX) extended release tablet 40 mg [[id number]] Ordering Provider: Vikash Servin MD Status: Dispensed Ordered On: 05/14/241757 Start: 05/14/241829 Ordered Dose (Remaining/Total): 40 mg (--/--) Route: oral Frequency: Daily Ordered Rate/Order Duration: -- / -- Admin Instructions: Do not crush, chew, cut, dissolve, open or otherwise manipulate tablet/capsule. Timestamps Action Dose Route Other Information 05/20/24 0830 Given 40 mg oral Performed by: Maritza Rene RN Scanned Package: 30274-918-77 QUEtiapine (SEROquel) tablet 50 mg [[id number]] Ordering Provider: Vikash Servin MD Status: Dispensed Ordered On: 05/14/241757 Start: 05/14/242099 Ordered Dose (Remaining/Total): 50 mg (--/--) Route: oral Frequency: Nightly Ordered Rate/Order Duration: -- / -- Timestamps Action Dose Route Other Information 05/19/242052 Given 50 mg oral Performed by: Hemal Sales RN Scanned Package: [id number], 12097-982-89 senna-docusate (PERICOLACE) 8.6-50 mg per tablet 1 tablet [[id number]] Ordering Provider: Vikash Servin MD Status: Dispensed Ordered On: 05/14/241757 Start: 05/14/242099 Ordered Dose (Remaining/Total): 1 tablet (--/--) Route: oral Frequency: 2 times daily Ordered Rate/Order Duration: -- / -- Admin Instructions: Hold for diarrhea. Timestamps Action Dose Route Other Information 05/19/242052 Given 1 tablet oral Performed by: Hemal Sales RN Scanned Package: 0223-7476-55 HYDROmorphone (DILAUDID) injection 0.5 mg [[id number]] Ordering Provider: Frandy Ferreira MD Status: Completed (Past End Date/Time) Ordered On: 05/14/241402 Starts/Ends: 05/14/241403 - 05/14/241405 Ordered Dose (Remaining/Total): 0.5 mg (0/1) Route: intravenous Frequency: Once Ordered Rate/Order Duration: -- / 2 Minutes Line Med Link Info Comment Peripheral IV 05/14/24 20 G Left Hand 05/14/24 1404 by Denise Mendez RN -- Timestamps Action Dose / Duration Route Other Information 05/14/24 140 Given 0.5 mg 2 Minutes intravenous Performed by: Denise Mendez RN Scanned Package: 5663-0134-87 haloperidol (HALDOL) injection 5 mg [[id number]] Ordering Provider: Berto Olivas MD Status: Completed (Past End Date/Time) Ordered On: 05/14/24 151 Starts/Ends: 05/14/24 151 - 05/14/24 151 Ordered Dose (Remaining/Total): 5 mg (0/1) Route: intravenous Frequency: Once Ordered Rate/Order Duration: -- / -- Admin Instructions: If administered IV push, administer over 5 min for adults Line Med Link Info Comment Peripheral IV 05/14/24 20 G Left Hand 05/14/24 1510 by Denise Mendez RN -- Timestamps Action Dose Route Other Information 05/14/24 151 Given 5 mg intravenous Performed by: Denise Mendez RN fentaNYL (SUBLIMAZE) preservative free injection 50 mcg [[id number]] Ordering Provider: Frandy Ferreira MD Status: Completed (Past End Date/Time) Ordered On: 05/14/241646 Starts/Ends: 05/14/241647 - 05/14/241647 Ordered Dose (Remaining/Total): 50 mcg (0/1) Route: intravenous Frequency: Once Ordered Rate/Order Duration: -- / -- Line Med Link Info Comment Peripheral IV 05/14/24 20 G Left Hand 05/14/24 164 by Denise Mendez RN -- Timestamps Action Dose Route Other Information 05/14/241647 Given 50 mcg intravenous Performed by: Denise Mendez RN Scanned Package: 1104-0648-45 haloperidol (HALDOL) injection 2.5 mg [[id number]] Ordering Provider: Berto Olivas MD Status: Completed (Past End Date/Time) Ordered On: 12/12/29 1710 Starts/Ends: 05/14/241711 - 05/14/241713 Ordered Dose (Remaining/Total): 2.5 mg (0/1) Route: intravenous Frequency: Once Ordered Rate/Order Duration: -- / -- Admin Instructions: If administered IV push, administer over 5 min for adults Line Med Link Info Comment Peripheral IV 05/14/24 20 G Left Hand 05/14/244 by Denise Mendez RN -- Timestamps Action Dose Route Other Information 05/14/241713 Given 2.5 mg intravenous Performed by: Denise Mendez RN Scanned Package: 60383-578-31 levothyroxine (SYNTHROID) tablet 137 mcg [[id number]] Ordering Provider: Spike Tidwell MD Status: Dispensed Ordered On: 05/14/242047 Start: 05/15/24599 Ordered Dose (Remaining/Total): 137 mcg (--/--) Route: oral Frequency: Daily (early AM) Ordered Rate/Order Duration: -- / -- Admin Instructions: Administer on an empty stomach, preferably 30 minutes before breakfast. Take 4 hours apart from antacids, iron and calcium products. Separate from tube feeds, if applicable. Timestamps Action Dose Route Other Information 05/20/2438 Given 137 mcg oral Performed by: Mandie Holly RN Scanned Package: 1128-8450-23 sodium chloride 0.9% bolus 500 mL [[id number]] Ordering Provider: Spike Tidwell MD Status: Completed (Past End Date/Time) Ordered On: 05/14/242251 Starts/Ends: 05/14/242329 - 05/14/242313 Ordered Dose (Remaining/Total): 500 mL (0/1) Route: intravenous Frequency: Once Ordered Rate/Order Duration: -- / -- Timestamps Action Dose Route Other Information 05/14/242313 New Bag 500 mL intravenous Performed by: Nataliya Saxena RN Scanned Package: 7216-3964-59 dextrose gel in packet 15 g [[id number]] Ordering Provider: Spike Tidwell MD Status: Verified Ordered On: 05/15/24535 Start: 05/15/24535 Ordered Dose (Remaining/Total): 15 g (--/--) Route: oral Frequency: Every 15 min PRN Ordered Rate/Order Duration: -- / -- Admin Instructions: If patient is alert and able to eat/drink, give 15 gm glucose or one juice (4 fluid ounces) NOT ORANGE JUICE. After treatment for hypoglycemia, recheck BG followed by treatment every 15 minutes until the BG is greater than 100 mg/dL. Then check BG 1 hour post-treatment. If BG isless than 100 mg/dL, repeat Q15 minute BG checks and treatment. Call MD for each episode of hypoglycemia. (No admins scheduled or recorded for this medication) dextrose (D10W) 10% bolus 250 mL [[id number]] Ordering Provider: Spkie Tidwell MD Status: Verified Ordered On: 05/15/24535 Start: 05/15/24535 Ordered Dose (Remaining/Total): 250 mL (--/--) Route: intravenous Frequency: Every 15 min PRN Ordered Rate/Order Duration: 1,000 mL/hr / 15 Minutes Admin Instructions: After treatment for hypoglycemia, recheck BG followed by treatment every 15 minutes until the BG is greater than 100 mg/dL. Then check BG 1 hour post treatment. If BG is less pupc689 mg/dL, repeat Q15 minute BG checks and treatment. Call MD for each episode of hypoglycemia. (No admins scheduled or recorded for this medication) glucagon injection 1 mg [[id number]] Ordering Provider: Spike Tidwell MD Status: Verified Ordered On: 05/15/24535 Start: 05/15/24535 Ordered Dose (Remaining/Total): 1 mg (--/--) Route: intramuscular Frequency: Every 30 min PRN Ordered Rate/Order Duration: -- / -- Admin Instructions: After Glucagon is administered, position patient on side if possible to avoid aspiration. Obtain IV access. Follow glucagon treatment with glucose treatment or IV dextrose. After treatment for hypoglycemia, recheck BG followed by treatment every 15 minutes until the BG isgreater than 100 mg/dL. Then check BG 1 hour post treatment. If BG is less than 100 mg/dL, repeat Q15 minute BG checks and treatment. Call MD for each episode of hypoglycemia. Reconstitute 1 mg vial with 1 mL SWFI. Use immediately following reconstitution. (No admins scheduled or recorded for this medication) insulin lispro (HumaLOG, ADMELOG) 100 unit/mL injection 0-5 Units [[id number]] Ordering Provider: Spike Tidwell MD Status: Dispensed Ordered On: 05/15/24535 Start: 05/15/24 0800 Ordered Dose (Remaining/Total): 0-5 Units (--/--) Route: subcutaneous Frequency: 3 times daily with meals Ordered Rate/Order Duration: -- / -- Admin Instructions: Blood glucose mg/dL: 149 or less: No insulin 150-199: add 1 unit 200-249: add 2 units 250-299: add 3 units 300-349: add 4 units and notify physician for adjustment of insulin orders. 350-399: add 5 units and notify physician for adjustment of insulin orders. Over 400: Notify physician for adjustment of insulin orders. Do NOT hold for NPO Status Timestamps Action Dose Route / Site Other Information 05/17/24 1214 Given 1 Units subcutaneous Left Lower Abdomen Performed by: Jen Li RN Scanned Package: [id number] insulin lispro (HumaLOG, ADMELOG) 100 unit/mL injection 0-4 Units [[id number]] Ordering Provider: Spike Tidwell MD Status: Dispensed Ordered On: 05/15/24535 Start: 05/15/24 2100 Ordered Dose (Remaining/Total): 0-4 Units (--/--) Route: subcutaneous Frequency: Nightly Ordered Rate/Order Duration: -- / -- Admin Instructions: Blood glucose mg/dL: 199 or less: No insulin 200-249: add 1 unit 250-299: add 2 units 300-349: add 3 units and notify physician for adjustment of insulin orders. 350- 399: add 4 units and notify physician for adjustment of insulin orders. Over 400: Notify physician for adjustment of insulin orders. Do NOT hold for NPO Status (No admins scheduled or recorded for this medication) QUEtiapine (SEROquel) tablet 25 mg [[id number]] Ordering Provider: Cain Demarco MD Status: Completed (Past End Date/Time) Ordered On: 05/15/24 1400 Starts/Ends: 05/15/24 1445 - 05/15/24 1448 Ordered Dose (Remaining/Total): 25 mg (0/1) Route: oral Frequency: Once Ordered Rate/Order Duration: -- / -- Timestamps Action Dose Route Other Information 05/15/24 1448 Given 25 mg oral Performed by: Betsy Hernandez Scanned Package: [id number] HYDROmorphone (DILAUDID) injection 0.2 mg [[id number]] Ordering Provider: Spkie Tidwell MD Status: Completed (Past End Date/Time) Ordered On: 05/16/24 0057 Starts/Ends: 05/16/24 0130 - 05/16/24 0102 Ordered Dose (Remaining/Total): 0.2 mg (0/1) Route: intravenous Frequency: Once Ordered Rate/Order Duration: -- / 2 Minutes Timestamps Action Dose / Duration Route Other Information 05/16/24 0100 Given 0.2 mg 2 Minutes intravenous Performed by: Cuca Thakur RN Scanned Package: [id number] sodium zirconium cyclosilicate (LOKELMA) packet 5 g [[id number]] Ordering Provider: Spike Tidwell MD Status: Completed (Past End Date/Time) Ordered On: 05/16/24 0358 Starts/Ends: 05/16/24 0430 - 05/16/24 0731 Ordered Dose (Remaining/Total): 5 g (0/1) Route: oral Frequency: Once Ordered Rate/Order Duration: -- / -- Admin Instructions: Adjust medication timing to ensure other oral medications are administered at least 2 hours before or 2 hours after sodium zirconium cyclosilicate. Empty packet(s) into a glass with 3 tablespoons (45 mL) of water. Stir and administer immediately. Repeat until no powder remainsin glass. Timestamps Action Dose Route Other Information 05/16/24 0731 Given 5 g oral Performed by: Juanita Weems RN Scanned Package: [id number] HYDROmorphone (DILAUDID) injection 0.2 mg [[id number]] Ordering Provider: Amador Nj MD Status: Completed (Past End Date/Time) Ordered On: 05/16/24 0844 Starts/Ends: 05/16/24914 - 05/16/24 0910 Ordered Dose (Remaining/Total): 0.2 mg (0/1) Route: intravenous Frequency: Once Ordered Rate/Order Duration: -- / 2 Minutes Timestamps Action Dose / Duration Route Other Information 05/16/24 0908 Given 0.2 mg 2 Minutes intravenous Performed by: Juanita Weems RN Scanned Package: [id number] acetaminophen (TYLENOL) tablet 1,000 mg [[id number]] Ordering Provider: Falguni Galvez NP Status: Dispensed Ordered On: 05/16/24843 Start: 05/16/24 1200 Ordered Dose (Remaining/Total): 1,000 mg (--/--) Route: oral Frequency: Every 6 hours scheduled Ordered Rate/Order Duration: -- / -- Timestamps Action Dose Route Other Information 05/20/24 0638 Given 1,000 mg oral Performed by: Mandie Holly RN Scanned Package: [id number], 31082-452-91 methocarbamoL (ROBAXIN) tablet 500 mg [[id number]] Ordering Provider: Falguni Galvez NP Status: Dispensed Ordered On: 05/16/24843 Start: 05/16/24914 Ordered Dose (Remaining/Total): 500 mg (--/--) Route: oral Frequency: 3 times daily Ordered Rate/Order Duration: -- / -- Timestamps Action Dose Route Other Information 05/20/24 0829 Given 500 mg oral Performed by: Maritza Rene RN Scanned Package: 54811-358-56 ketorolac (TORADOL) 15 mg/mL injection 15 mg [[id number]] Ordering Provider: Falguni Galvez NP Status: Completed (Past End Date/Time) Ordered On: 05/16/24 1450 Starts/Ends: 05/16/24 1600 - 05/17/24 0853 Ordered Dose (Remaining/Total): 15 mg (0/3) Route: intravenous Frequency: Every 8 hours Ordered Rate/Order Duration: -- / -- Admin Instructions: For Adult IV push, administer over 15 seconds Line Med Link Info Comment Peripheral IV 05/16/24 22 G Right Hand 05/16/24 1517 by Juanita Weems RN -- Timestamps Action Dose Route Other Information 05/17/24 0853 Given 15 mg intravenous Performed by: Jen Li RN Scanned Package: [id number] sodium chloride 0.9% bolus 500 mL [[id number]] Ordering Provider: Spike Tidwell MD Status: Completed (Past End Date/Time) Ordered On: 05/17/24 0046 Starts/Ends: 05/17/24 0130 - 05/17/24 0453 Ordered Dose (Remaining/Total): 500 mL (0/1) Route: intravenous Frequency: Once Ordered Rate/Order Duration: 125 mL/hr / 4 Hours Timestamps Action Dose / Rate / Duration Route Other Information 05/17/24 0053 New Bag 500 mL 125 mL/hr 4 Hours intravenous Performed by: Nataliya Saxena RN Scanned Package: [id number] OLANZapine (ZyPREXA) 5 mg in sterile water 1 mL (5 mg/mL) syringe [[id number]] Ordering Provider: Spike Tidwell MD Status: Completed (Past End Date/Time) Ordered On: 05/17/24 0419 Starts/Ends: 05/17/24 0500 - 05/17/24 0425 Ordered Dose (Remaining/Total): 5 mg (0/1) Route: intravenous Frequency: Once Ordered Rate/Order Duration: -- / 1 Minutes Admin Instructions: Reconstitute 10 mg vial with 2.1 mL SWFI. Resulting solution is ~5 mg/mL. Useimmediately (within 1 hour) following reconstitution. Timestamps Action Dose / Duration Route Other Information 05/17/24 0424 Given 5 mg 1 Minutes intravenous Performed by: Nataliya Saxena RN Scanned Package: [id number], [id number] OLANZapine (ZyPREXA) 2.5 mg in sterile water 0.5 mL (5 mg/mL) syringe [[id number]] Ordering Provider: Spike Tidwell MD Status: Completed (Past End Date/Time) Ordered On: 05/17/24 0549 Starts/Ends: 05/17/24 06 - 05/17/24 0557 Ordered Dose (Remaining/Total): 2.5 mg (0/1) Route: intravenous Frequency: Once Ordered Rate/Order Duration: -- / 1 Minutes Admin Instructions: Reconstitute 10 mg vial with 2.1 mL SWFI. Resulting solution is ~5 mg/mL. Useimmediately (within 1 hour) following reconstitution. Timestamps Action Dose / Duration Route Other Information 05/17/24 0556 Given 2.5 mg 1 Minutes intravenous Performed by: Nataliya Saxena RN Scanned Package: [id number], 28820-445-56, 6768-1287-80, 2497-0587-37, 5859-7897-66 heparin 5,000 unit/mL injection 5,000 Units [[id number]] Ordering Provider: Falguni Galvez NP Status: Dispensed Ordered On: 05/17/24 1023 Start: 05/17/24 2100 Ordered Dose (Remaining/Total): 5,000 Units (--/--) Route: subcutaneous Frequency: Every 8 hours scheduled Ordered Rate/Order Duration: -- / -- Timestamps Action Dose Route / Site Other Information 05/20/24 0638 Given 5,000 Units subcutaneous Left Lower Abdomen Performed by: Mandie Holly RN Scanned Package: [id number] cephalexin (KEFLEX) capsule 250 mg [[id number]] Ordering Provider: Falguni Galvez NP Status: Dispensed Ordered On: 05/17/24 1025 Starts/Ends: 05/17/24 1400 - 05/22/24 1559 Ordered Dose (Remaining/Total): 250 mg (11/20) Route: oral Frequency: 3 times daily Ordered Rate/Order Duration: -- / -- Timestamps Action Dose Route Other Information 05/20/24 0829 Given 250 mg oral Performed by: Maritza Rene RN Scanned Package: 17473-491-72 sodium chloride 0.9% flush 0.5-20 mL [[id number]] Ordering Provider: Spike Tidwell MD Status: Verified Ordered On: 05/17/24 2117 Start: 05/18/24 0000 Ordered Dose (Remaining/Total): 0.5-20 mL (--/--) Route: intra-catheter Frequency: Every 8 hours scheduled (alternate) Ordered Rate/Order Duration: -- / -- Admin Instructions: Flush volume based on line type and size. Timestamps Action Dose Route Other Information 05/20/248 Given 10 mL intra-catheter Performed by: Mandie Holly RN Scanned Package: [id number] sodium chloride 0.9% flush 0.5-20 mL [[id number]] Ordering Provider: Spike Tidwell MD Status: Verified Ordered On: 05/17/242116 Start: 05/17/242116 Ordered Dose (Remaining/Total): 0.5-20 mL (--/--) Route: intra-catheter Frequency: As needed Ordered Rate/Order Duration: -- / -- Admin Instructions: Flush volume based on line type and size. Flush before and after each use. (No admins scheduled or recorded for this medication) Carrier Fluids for Secondary Infusion - 0.9% Sodium Chloride [[id number]] Ordering Provider: Spike Tidwell MD Status: Verified Ordered On: 05/17/242116 Start: 05/17/242116 Ordered Dose (Remaining/Total): 30 mL (--/--) Route: intravenous Frequency: As needed Ordered Rate/Order Duration: -- / -- Admin Instructions: 0-250 ml/hr to flush line after IV infusions when no maintenance IV ordered. Infuse 30mL at the same rate as the secondary infusion. Run as primary IV, not intended for KVO. (No admins scheduled or recorded for this medication) HYDROmorphone (DILAUDID) injection 0.2 mg [[id number]] Ordering Provider: Spike Tidwell MD Status: Completed (Past End Date/Time) Ordered On: 05/17/242116 Starts/Ends: 05/17/242199 - 05/17/242143 Ordered Dose (Remaining/Total): 0.2 mg (0/1) Route: intravenous Frequency: Once Ordered Rate/Order Duration: -- / 2 Minutes Timestamps Action Dose / Duration Route Other Information 05/17/242141 Given 0.2 mg 2 Minutes intravenous Performed by: Marjan Pritchett RN Scanned Package: 40239-094-03 bisacodyL (DULCOLAX) suppository 10 mg [[id number]] Ordering Provider: Falguni Galvez NP Status: Completed (Past End Date/Time) Ordered On: 05/18/24 0654 Starts/Ends: 05/18/24729 - 05/18/24901 Ordered Dose (Remaining/Total): 10 mg (0/1) Route: rectal Frequency: Once Ordered Rate/Order Duration: -- / -- Timestamps Action Dose Route Other Information 05/18/24901 Given 10 mg rectal Performed by: Marion Lamb Scanned Package: 8437-7589-25 polyethylene glycol (MIRALAX) packet 17 g [[id number]] Ordering Provider: Falguni Galvez NP Status: Dispensed Ordered On: 05/18/24653 Start: 05/18/24899 Ordered Dose (Remaining/Total): 17 g (--/--) Route: oral Frequency: Daily Ordered Rate/Order Duration: -- / -- Timestamps Action Dose Route Other Information 05/19/24 08 Given 17 g oral Performed by: Maria C Aguirre RN Scanned Package: 13728-102-85 aspirin enteric coated tablet 81 mg [[id number]] Ordering Provider: Falguni Galvez NP Status: Dispensed Ordered On: 05/18/24 0750 Start: 05/18/24 09 Ordered Dose (Remaining/Total): 81 mg (--/--) Route: oral Frequency: Daily Ordered Rate/Order Duration: -- / -- Admin Instructions: Do not crush, chew, cut, dissolve, open or otherwise manipulate tablet/capsule. Timestamps Action Dose Route Other Information 05/20/24 08 Given 81 mg oral Performed by: Maritza Rene RN Scanned Package: [id number] lidocaine (LIDODERM) 5 % patch 1 patch [[id number]] Ordering Provider: Cain Demarco MD Status: Dispensed Ordered On: 05/18/24 1045 Start: 05/18/24 1516 Ordered Dose (Remaining/Total): 1 patch (--/--) Route: transdermal Frequency: Every 24 hours Ordered Rate/Order Duration: -- / 12 Hours Admin Instructions: Do not cover the holes on the top side of the patch. Question Answer Comment Apply to affected area:: abdomen -- Timestamps Action Dose / Duration Route / Site Other Information 05/19/24 1153 Medication Applied 1 patch 12 Hours transdermal Other (Comment) Performed by: Maria C Aguirre, KHLOE Comments: avtar lozano Scanned Package: 9309-8483-59 OLANZapine (ZyPREXA ZYDIS) disintegrating tablet 5 mg [[id number]] Ordering Provider: Falguni Galvez NP Status: Completed (Past End Date/Time) Ordered On: 05/18/24 1434 Starts/Ends: 05/18/24 151 - 05/18/24 144 Ordered Dose (Remaining/Total): 5 mg (0/1) Route: sublingual Frequency: Once Ordered Rate/Order Duration: -- / -- Admin Instructions: SENDING ONE DOSE TO PT SPECIFIC BIN Timestamps Action Dose Route Other Information 05/18/24 144 Given 5 mg sublingual Performed by: Marion Lamb Scanned Package: [id number] oxyCODONE (ROXICODONE) tablet 5 mg [[id number]] Ordering Provider: Spike Tidwell MD Status: Completed (Past End Date/Time) Ordered On: 05/18/241921 Starts/Ends: 05/18/241999 - 05/18/241928 Ordered Dose (Remaining/Total): 5 mg (0/1) Route: oral Frequency: Once Ordered Rate/Order Duration: -- / -- Timestamps Action Dose Route Other Information 05/18/241928 Given 5 mg oral Performed by: Fe Bhatti, KHLOE Scanned Package: 89239-583-01 QUEtiapine (SEROquel) tablet 50 mg [[id number]] Ordering Provider: Spike Tidwell MD Status: Completed (Past End Date/Time) Ordered On: 05/18/242154 Starts/Ends: 05/18/242229 - 05/18/242214 Ordered Dose (Remaining/Total): 50 mg (0/1) Route: oral Frequency: Once Ordered Rate/Order Duration: -- / -- Timestamps Action Dose Route Other Information 12/11/24 2215 Given 50 mg oral Performed by: Fe Bhatti RN Scanned Package: 59169-181-74, 56916-445-89 bisacodyL (DULCOLAX) suppository 10 mg [[id number]] Ordering Provider: Falguni Galvez NP Status: Completed (Past End Date/Time) Ordered On: 05/19/24 06 Starts/Ends: 05/19/24 0700 - 05/19/24 0829 Ordered Dose (Remaining/Total): 10 mg (0/1) Route: rectal Frequency: Once Ordered Rate/Order Duration: -- / -- Timestamps Action Dose Route Other Information 05/19/24 0829 Given 10 mg rectal Performed by: Maria C Aguirre RN Scanned Package: 0604-7341-34 OLANZapine (ZyPREXA) 2.5 mg in sterile water 0.5 mL (5 mg/mL) syringe [[id number]] Ordering Provider: Falguni Galvez NP Status: Completed (Past End Date/Time) Ordered On: 05/19/24 1134 Starts/Ends: 05/19/24 1215 - 05/19/24 1154 Ordered Dose (Remaining/Total): 2.5 mg (0/1) Route: intravenous Frequency: Once Ordered Rate/Order Duration: -- / 1 Minutes Admin Instructions: Reconstitute 10 mg vial with 2.1 mL SWFI. Resulting solution is ~5 mg/mL. Useimmediately (within 1 hour) following reconstitution. Timestamps Action Dose / Duration Route Other Information 05/19/24 1153 Given 2.5 mg 1 Minutes intravenous Performed by: Maria C Aguirre RN Scanned Package: 48837-603-84, 4907-2281-05 cholecalciferol (VITAMIN D-3) capsule 1,000 Units [[id number]] Ordering Provider: Falguni Galvez NP Status: Dispensed Ordered On: 05/19/24 1339 Start: 05/19/24 1415 Ordered Dose (Remaining/Total): 1,000 Units (--/--) Route: oral Frequency: Daily Ordered Rate/Order Duration: -- / -- Admin Instructions: Each capsule contains 1,000 units (25 mcg) of cholecalciferol. Timestamps Action Dose Route Other Information 05/20/24 0829 Given 1,000 Units oral Performed by: Maritza Rene RN Scanned Package: [id number] LORazepam (ATIVAN) tablet 0.5 mg [[id number]] Ordering Provider: Spike Tidwell MD Status: Verified Ordered On: 05/19/241852 Start: 05/20/24399 Ordered Dose (Remaining/Total): 0.5 mg (--/--) Route: oral Frequency: 2 times daily PRN Ordered Rate/Order Duration: -- / -- (No admins scheduled or recorded for this medication) HYDROmorphone (DILAUDID) injection 0.2 mg [[id number]] Ordering Provider: Spike Tidwell MD Status: Completed (Past End Date/Time) Ordered On: 05/19/241909 Starts/Ends: 05/19/241944 - 05/19/241915 Ordered Dose (Remaining/Total): 0.2 mg (0/1) Route: intravenous Frequency: Once Ordered Rate/Order Duration: -- / 2 Minutes Timestamps Action Dose / Duration Route Other Information 05/19/241913 Given 0.2 mg 2 Minutes intravenous Performed by: Nataliya Saxena RN Scanned Package: 67402-586-12 QUEtiapine (SEROquel) tablet 50 mg [[id number]] Ordering Provider: Spike Tidwell MD Status: Completed (Past End Date/Time) Ordered On: 05/19/242216 Starts/Ends: 05/19/242299 - 05/19/242232 Ordered Dose (Remaining/Total): 50 mg (0/1) Route: oral Frequency: Once Ordered Rate/Order Duration: -- / -- Timestamps Action Dose Route Other Information 05/19/242232 Given 50 mg oral Performed by: Mandie Holly RN Scanned Package: 40537-025-92, 48622-013-72 HYDROmorphone (DILAUDID) tablet 2 mg [[id number]] Ordering Provider: Spike Tidwell MD Status: Dispensed Ordered On: 05/19/242216 Start: 05/19/242216 Ordered Dose (Remaining/Total): 2 mg (--/--) Route: oral Frequency: Every 4 hours PRN Ordered Rate/Order Duration: -- / -- Timestamps Action Dose Route Other Information 05/19/24 2329 Given 2 mg oral Performed by: Mandie Holly RN Scanned Package: [id number] , Wound Info Only Active Wound Assessment Active Wound / Pressure injury / Lamb / Negative Pressure Wound / Incision None , Vitals Info Only Vital Signs 05/19 0659 05/20 1028 Most Recent Temp (??C) 36.6 - 37.4 36.6 36.6 (97.9) 05/20 754 Pulse 74 - 94 76 76 05/20 754 Resp 16 - 20 20 20 05/20 754 SpO2 (%) 86 - 100 98 98 05/20 754 BP 145/53 - 166/63 180/67 180/67 05/20 754 MAP (mmHg) 79 - 105 99 99 05/20 754 , Oxygen Info Only Default Flowsheet Data (most recent) Endurance Tests No documentation. Default Flowsheet Data (Last 48 Hours) Oxygen Row Name 05/20/24 0754 05/20/24 0014 05/19/24201905/19/24 2018 05/19/241999 Oxygen Therapy/Pulse Ox O2 Therapy -- Supplemental oxygen Supplemental oxygen None (Room air) Supplemental oxygen O2 Del Method -- Nasal cannula -- -- -- O2 Flow Rate (L/min) -- 3 L/min -- -- 3 L/min SpO2 98 % 100 % 92 % 86 % -- Patient Activity -- At rest -- -- At rest Row Name 05/19/24 1623 05/19/24 1427 05/19/24 0722 05/19/24 0611 05/19/24 0123 Oxygen Therapy/Pulse Ox O2 Therapy -- None (Room air) Supplemental oxygen Supplemental oxygen Supplemental oxygen O2 Del Method -- -- High flow nasal cannula High flow nasal cannula High flow nasal cannula O2 Flow Rate (L/min) -- -- 3 L/min 3 L/min 3 L/min SpO2 91 % 94 % 90 % 93 % 93 % Patient Activity -- At rest At rest At rest At rest Row Name 05/19/24 0000 05/18/24 2000 05/18/24 1502 05/18/24 1500 05/18/24 1400 Oxygen Therapy/Pulse Ox O2 Therapy Supplemental oxygen Supplemental oxygen Supplemental oxygen None (Room air) None (Room air) patient removed O2 Del Method High flow nasal cannula High flow nasal cannula High flow nasal cannula -- -- O2 Flow Rate (L/min) 3 L/min 3 L/min 3 L/min -- -- SpO2 -- -- 93 % 85 % -- Patient Activity At rest At rest -- At rest -- Row Name 05/18/24 1136 Oxygen Therapy/Pulse Ox O2 Therapy Supplemental oxygen O2 Del Method High flow nasal cannula O2 Flow Rate (L/min) 3 L/min SpO2 96 % Patient Activity At rest , I&O Only Intake/Output 05/17/24 0700 - 05/18/24 0659 05/18/24 0700 - 05/19/24 0659 05/19/24 0700 - 05/20/24 0659 Total Total 9539-8019 9560-4990 7451-6760 Total Intake (ml) 10 220 -- 100 -- 100 Output (ml) 1675 1050 375 125 100 600 Net (ml) -1665 -830 -375 -25 -100 -500 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 Patient Information: OT Eval and Treat Last 72 Hours OT Evaluation Row Name 05/16/24 1600 05/15/24 1302 Chart Reviewed -- Yes -CP Session Type Treatment -KS Evaluation -CP OT Received On 05/16/24 -KS 05/15/24 -CP Safe Environment Arm band checked;Patient found in supine -KS Arm band checked;Patient found in supine;Gait belt utilized for all out of bed mobility soft wrist restraints donned -CP Subjective Agreeable to Therapy -KS Agreeable to Therapy -CP Subjective Comment I've done enough today. -KS Let's go. I'm hurting. -CP Family/Caregiver Present No -KS Yes granddaughter -CP Occupational Therapy-Patient Goal -- Pt did not state a goal this date. -CP Precautions Fall risk -KS Fall risk -CP Weight Bearing Restrictions Yes -KS Yes -CP RLE Weight Bearing WBAT -KS WBAT -CP Precaution Handout Issued -- No -CP Precaution Comments -- Verbally reviewed weight bearing restrictions and pt somewhat verbalized understanding. -CP Type of Home -- Retirement Facility -CP Home Layout -- One level -CP Home Access -- Level entry -CP Bathroom Shower/Tub -- Walk-in shower with threshold -CP Bathroom Toilet -- Standard -CP Bathroom Equipment -- Grab bars in shower/tub;Shower chair -CP Home Mobility Equipment-Available -- None -CP Home Mobility Equipment-Currently Using -- None -CP Home ADL Equipment-Available -- None -CP Home ADL Equipment-Currently Using -- None -CP Level of [place] -- Independent with ADLs;Independent functional transfers;Independent with ambulation;Needs assistance with homemaking -CP Lives With -- Alone -CP Receives Help From -- Facility staff 29/12 assist available -CP Driving -- No -CP Mode of Transportation -- Driven by others -CP ADL Assistance -- Independent -CP Instrumental ADL (IADL) Assistance -- Needs assistance -CP Vocational/Occupation -- Retired -CP Leisure -- Hobbies-yes (Comment) watch bands -CP Fall within the last 6 months -- Yes -CP Fall within the last 6 months comment -- 1 fall d/t potential tripping -CP ADLS (WDL) -- X -CP Grooming: Where assessed -- Chair -CP Grooming: Level of assistance -- Moderate Assist setup task, total balance; washing face -CP Grooming: Assistance with -- Balance -CP LE Dressing: Where assessed -- Supine, bed -CP LE Dressing: Level of assistance -- Dependent total task, total balance -CP LE Dressing: Assistance with -- Don/doff R sock;Don/doff L sock;Balance;Safety -CP Toilet Transfer From -- Bed -CP Toilet Transfer Type -- To -CP Toilet Transfer to -- -- sim to arm chair -CP Toilet Transfer Technique -- Stand and Step -CP Toilet Transfer: Equipment -- Hand hold -CP Toilet Transfers -- Maximal assistance x2 -CP Toilet Transfers Comments -- decreased force production, safety, balance -CP Pain Assessment -- 0-10 -CP Pain Score -- 10 - Worst possible pain -CP Pain Type -- Acute pain -CP Pain Location -- Buttocks -CP Pain Interventions -- RN Notified -CP Current Vision -- Does not wear glasses -CP Cognition Comments -- Pt cooperative with impulsivity to get OOB and off of bottom d/t pain. -CP Overall Cognitive Status -- Impaired -CP Arousal/Alertness -- Appropriate responses to stimuli;Alert -CP Attention Span -- Attends with cues to redirect;Difficulty attending to directions;Difficulty dividing attention;Distractability -CP Memory -- Decreased short term memory;Decreased recall of recent events;Decreased recall of precautions;Decreased recall of biographical information -CP Current communication -- Appears Intact -CP Orientation -- Oriented to person -CP Following Commands -- Follows one step commands with repetition -CP Safety Judgment -- Decreased awareness of need for safety -CP Awareness of Errors -- Assistance required to identify errors made;Assistance required to correct errors made;Decreased awareness of errors -CP Insight -- Decreased awareness of deficits -CP Problem Solving -- Assistance required to generate solutions;Assistance required to identify errorsmade;Assistance required to implement solutions -CP Compliance/Behavior -- Easy to engage -CP Perseveration -- Not present -CP Cognitive Tests -- No NT d/t pt mental status -CP Light Touch -- WFL -CP Numbness/Tingling -- No -CP Hand Preference -- Right -CP Balance Tests -- Yes -CP Sitting Balance -- 1 -CP Arises -- 0 -CP Attempts to Arise -- 0 -CP Immediate Standing Balance (First 5 Seconds) -- 0 -CP Standing Balance -- 0 -CP Nudged -- 0 -CP Eyes Closed -- 0 -CP Turned 360 Degrees: Steadiness -- 0 -CP Turned 360 Degrees: Continuity of Steps -- 0 -CP Sitting Down -- 0 -CP Balance Score -- 1 -CP Balance -- Yes -CP Static Sitting-Balance Support -- Bilateral upper extremity supported;Feet supported -CP Static Sitting-Sitting Surface -- Bed -CP Static Sitting-Level of Assistance -- Close supervision -CP Static Sitting-Comment/# of Minutes -- safety, balance, impulsive -CP Static Standing-Balance Support -- Bilateral upper extremity supported on therapist -CP Static Standing-Standing Surface -- Floor -CP Static Standing-Level of Assistance -- Maximum assistance x2 -CP Static Standing-Comment/# of Minutes -- decreased force production, safety, balance -CP Bed Mobility -- Yes -CP Bed Mobility From 1 -- Supine -CP Bed Mobility Type 1 -- To and from -CP Bed Mobility to 1 -- Edge of bed -CP Level of Assistance 1 -- Maximum Assist x2 -CP Bed Mobility Comments 1 -- trunk elevation, moving LEs/hips into/OOB -CP Transfer -- Yes -CP Transfer From 1 -- Sit -CP Transfer Type 1 -- To and from -CP Transfer to 1 -- Stand -CP Technique 1 -- Sit to stand;Stand to sit -CP Transfer Device 1 -- Hand held assist -CP Transfer Level of Assistance 1 -- Maximum Assist x2 -CP Trials/Comments 1 -- decreased force production, safety, balance -CP Transfer From 2 -- Bed -CP Transfer Type 2 -- To and from -CP Transfer to 2 -- Chair with arms -CP Technique 2 -- Stand and step -CP Transfer Device 2 -- Hand held assist -CP Transfer Level of Assistance 2 -- Maximum Assist x2 -CP Trials/Comments 2 -- decreased force production, safety, balance -CP RUE Assessment -- WFL -CP LUE Assessment -- WFL -CP Comments -- Pt was seen for initial OT eval this PM and presents as above. Pt donned socks dep and washed face mod a. Pt transferred from supine to/from sitting EOB max x2 for trunk elevation and moving LEs/hips into/OOB, sit to/from stand max x2 and stand step from bed to/from arm chair max x2 d/tdecreased force production, safety, balance. Pt unable to tolerate sitting up in recliner d/t pain in bottom. Pt is performing below her functional baseline and would continue to benefit from skilledacute OT while inpatient to maximize independence and safety with functional transfers and participation in ADLs/IADLs. OT to continue to follow acutely. -CP Putting on and taking off regular lower body clothing -- 1 -CP Bathing -- 2 -CP Toileting -- 1 -CP Putting on and taking off upper body clothing -- 2 -CP Personal Grooming -- 2 -CP Eating Meals -- 3 -CP Total Score (range 6-24) -- 11 -CP Score Interpretation -- 29.04 -CP Safe Environment End of Therapy Session -- Patient left supine in bed;Bed alarm in place and activated;RN notified;Call light within reach;Overbed table within reach soft wrist restraints donned -CP Problem List -- Debility;Decreased mobility;Decreased safe judgment during ADL;Decreased cognition;Decreased endurance;Decreased balance;Decreased functional mobility;Decreased ADL independence;Decreased IADL independence;Pain;Decreased upper extremity strength Simultaneous filing. User may not have seen previous data. -CM (r) CP (t) Barriers to Discharge -- Current Mobility Status;Current ADL Status;Cognition;Decreased safety awareness -CP Barrier Comments -- fall risk -CP Plan -- Plan of care initiated;If this is the last note, consider this the discharge summary -CP OT Recommendation -- Inpatient Rehab Facility -CP Patient at high risk for -- Falls;Readmission;Injury due to decreased ability to care for self;Injury due to reduced functional status;Injury due to impaired cognition;Injury due to balance deficits;Injury at home as patient has not returned to prior level of function -CP Recommend Inpatient Rehab/Acute Rehab due to -- Ability to actively participate in intensive therapy 3 hours/day, 5 days/week or 900 minutes per week;Highly motivated to participate in therapy;Not atbaseline due to impaired ability to complete ADLs;Impaired ability to complete functional mobility;Likely to return to the community at discharge with support system in place;Requires greater than 25% physical assistance with most mobility tasks;Requires greater than 25% physical assistance with most ADL tasks;Requires multiple therapy disciplines to address functional deficits;Patient and caregiver require specialized skilled training due to new level of function/diagnosis -CP OT Frequency during current admission -- 5-7x/wk -CP Treatment/Interventions during current admission -- ADL/IADL retraining;Balance Training;Bed mobility;Endurance training;Equipment eval/education;Functional activity;Functional mobility training;Functional transfer training;Parent/caregiver training and education;Strengthening;Therapeutic activity;Therapeutic exercise;Transfer training;Cognitive retraining -CP OT - Next Appointment -- 05/16/24 -CP OT - OK to Discharge -- No -CP OT Evaluation Complete -- Yes -CP OT Start Time -- 1302 -CP OT Stop Time -- 1333 -CP OT Time Calculation (min) -- 31 min -CP User Richard (r) = Recorded By, (t) = Taken By, (c) = Cosigned By Initials Name Effective Dates [place] Marjan Wen, OT 10/22/21 - CM Linsey Kaiser, OT 01/26/23 - CP Krystyna Ledesma 02/02/24 - OT Treatment Row Name 05/19/24 1450 05/16/24 1600 Session Type Treatment -KS -- OT Received On 05/19/24 -KS -- Safe Environment Arm band checked;Patient found sitting in chair;Gait belt utilized for all out of bed mobility -KS -- Subjective Agreeable to Therapy -KS -- Family/Caregiver Present Yes son present for half of session -KS -- Precautions Fall risk -KS -- Weight Bearing Restrictions Yes -KS -- RLE Weight Bearing WBAT -KS -- Precaution Comments reviewed safety -KS -- Pain Assessment Advanced Dementia -KS No/denies pain -KS Pain Score 4 -KS -- Pain Location Back (Lumbar) -KS -- Pain Orientation Generalized -KS -- Pain Interventions Repositioned -KS -- Breathing 0 -KS -- Negative Vocalization 1 -KS -- Facial Expression 1 -KS -- Body Language 1 -KS -- Consolability 1 -KS -- PAINAD Score 4 -KS -- Cognition Comments patient requires frequent redirection and reassurance throughout session -KS pt pleasant but adamantly refusing any OOB activity & remained cooperative with in bed activities -KS Arousal/Alertness Alert -KS -- Attention Span Distractability -KS -- Current communication Appears Intact -KS -- Orientation Oriented to person -KS Oriented to person -KS Following Commands Follows one step commands with repetition -KS Follows one step commands with repetition -KS Safety Judgment Impulsive -KS -- Awareness of Errors Decreased awareness of errors -KS -- Insight Decreased awareness of deficits -KS -- Problem Solving Assistance required to identify errors made;Assistance required to generate solutions;Assistance required to implement solutions -KS -- Compliance/Behavior Easy to engage;Anxious;Fearful;Agitated 2/2 potential sundowning -KS Easy to engage;Reluctant to participate -KS Perseveration Moderate on positioning -KS -- Balance Yes -KS No -KS Static Sitting-Balance Support Bilateral upper extremity supported -KS -- Static Sitting-Sitting Surface Bed -KS -- Static Sitting-Level of Assistance Distant supervision -KS -- Static Standing-Balance Support Bilateral upper extremity supported on OT -KS -- Static Standing-Standing Surface Floor -KS -- Static Standing-Level of Assistance Minimum assistance -KS -- Dynamic Standing-Balance Support No upper extremity supported -KS -- Dynamic Standing-Balance Lateral lean;Forward lean -KS -- Dynamic Standing-Standing Surface Floor -KS -- Dynamic Standing-Level of Assistance Moderate assistance -KS -- ADLS (WDL) X -KS X -KS Grooming: Where assessed Supine, bed -KS Supine, bed -KS Grooming: Level of assistance Maximum Assist -KS Maximum Assist -KS Grooming: Assistance with Increased time to complete;Use of adaptive equipment;Manipulation of containers;Appropriate use of ADL items;Reaching all areas of head/face;Sequencing;Attending to task;Problem solving;Organization -KS -- set up task & sequencing -KS LE Dressing: Where assessed Supine, bed -KS Supine, bed -KS LE Dressing: Level of assistance Dependent -KS Dependent -KS Bed Mobility Yes -KS No -KS Bed Mobility From 1 Edge of bed -KS -- Bed Mobility Type 1 To -KS -- Bed Mobility to 1 Supine -KS -- Level of Assistance 1 Moderate Assist -KS -- Bed Mobility Comments 1 Mod A for controlled descent & manuvering BLE -KS -- Transfer Yes -KS No -KS Transfer From 1 Sit -KS -- Transfer Type 1 To and from -KS -- Transfer to 1 Stand -KS -- Technique 1 Sit to stand;Stand to sit -KS -- Transfer Device 1 No device -KS -- Transfer Level of Assistance 1 Moderate Assist -KS -- Trials/Comments 1 Mod A for force production, steadying, controlled descent, & cues for technique -KS -- Toilet Transfer From Chair with arms -KS -- Toilet Transfer Type To -KS -- Toilet Transfer to -- simulated via recliner -KS -- Toilet Transfer Technique Stand pivot -KS -- Toilet Transfer: Equipment No device -KS -- Toilet Transfers Moderate assistance -KS Not tested -KS Toilet Transfers Comments Mod A for force production, steadying, controlled descent, & cues fortechnique -KS pt adamantly declined all OOB activity this session -KS ROM/STRENGTH -- Yes -KS Other Exercise -- AAROM performed x7 reps on BUE with pt actively engaged and counting, stated, Seven is enough. -KS Comments -- RN reports pt has been escalated all day, pulled at lines, and has been up to BSC several times today. RN reports pt is finally settled upon OT arrival. Pt pleasant during session. -KS Putting on and taking off regular lower body clothing 1 -KS 1 -KS Bathing 2 -KS 2 -KS Toileting 1 -KS 1 -KS Putting on and taking off upper body clothing 2 -KS 2 -KS Personal Grooming 2 -KS 2 -KS Eating Meals 3 -KS 3 -KS Total Score (range 6-24) 11 -KS 11 -KS Score Interpretation 29.04 -KS 29.04 -KS Safe Environment End of Therapy Session Patient left supine in bed;Bed alarm in place and activated;RN notified;Call light within reach;Overbed table within reach;Restraint or restraint alternative in place -KS Patient left supine in bed;RN notified;Call light within reach;Overbed table within reach -KS Problem List Debility;Decreased cognition;Decreased endurance;Decreased balance;Decreased functional mobility;Decreased ADL independence;Decreased IADL independence -KS Debility;Decreased cognition;Decreased endurance;Decreased balance;Decreased functional mobility;Decreased ADL independence;Decreased IADL independence -KS Barriers to Discharge Current Mobility Status;Current ADL Status;Cognition;Decreased safety awareness -KS Current Mobility Status;Current ADL Status;Cognition;Decreased safety awareness -KS Plan Continue with current plan;If this is the last note, consider this the discharge summary -KS Alter current plan;If this is the last note, consider this the discharge summary -KS Plan Comments -- updated d/c rec per patient functional status & therapy participation -KS OT Recommendation Retirement Facility -KS Retirement Facility -KS Patient at high risk for Falls;Injury due to decreased ability to care for self;Injury due to reduced functional status;Injury due to balance deficits;Injury due to impaired cognition;Injury at home as patient has not returned to prior level of function;Readmission;Developing impaired skin integrity;Cognitive decline due to decreased social participation;Mismanagement of medications;Prolonged dependence for self care tasks -KS Falls;Readmission;Injury due to decreased ability to care for self;Injury due to reduced functional status;Injury due to impaired cognition;Injury due to balance deficits;Injury at home as patient has not returned to prior level of function;Developing impaired skin integrity -KS Recommend SNF due to Risk of injury at home;Unable to safely care for self in the home;Skilled therapy needed to address care for self in the home;Skilled therapy needed to address functional deficits;Skilled therapy needed for patient to return to prior level of independence -KS Risk of injury at home;Unable to safely care for self in the home;Skilled therapy needed to address care for self in the home;Skilled therapy needed to address functional deficits;Skilled therapy needed for patient to return to prior level of independence -KS OT Frequency during current admission 3-5x/wk -KS 3-5x/wk -KS Treatment/Interventions during current admission ADL/IADL retraining;Balance Training;Bed mobility;Compensatory technique education;Endurance training;Functional activity;Functional mobility training;Functional transfer training;Strengthening;Therapeutic exercise;Transfer training;Therapeutic activi ty -KS ADL/IADL retraining;Balance Training;Bed mobility;Compensatory technique education;Endurancetraining;Functional activity;Functional mobility training;Functional transfer training;Strengthening;Therapeutic exercise;Transfer training;Therapeutic activity -KS Progress during current admission Slow progress, cognitive deficits -KS Slow progress, cognitive deficits -KS OT - Next Appointment 05/20/24 -KS 05/18/24 -KS User Richard (r) = Recorded By, (t) = Taken By, (c) = Cosigned By Initials Name Effective Dates [place] Marjan Wen OT 10/22/21 - OT Notes 05/19/2024 5:50 PM Progress Notes signed by Marjan Wen OT , PT Eval and Treat Last 72 Hours PT Evaluation Row Name 05/18/24 1558 05/16/24 0855 Chart Reviewed -- Yes -MR Session Type -- Evaluation -MR Safe Environment -- Arm band checked;Gait belt utilized for all out of bed mobility -MR Subjective -- Agreeable to Therapy -MR PT Missed Visit Reason -- Patient asleep in AM and family request to return later. Unable to returnin PM. -AR -- Family/Caregiver Present -- No -MR Physical Therapy-Patient Goal -- None stated -MR Precautions -- Fall risk -MR Weight Bearing Restrictions -- Yes -MR RLE Weight Bearing -- WBAT -MR Precaution Handout Issued -- No -MR Type of Home -- Extended Care Facility -MR Home Layout -- One level -MR Home Access -- Level entry -MR Home Mobility Equipment-Available -- None -MR Home Mobility Equipment-Currently Using -- None -MR Level of [place] -- Independent functional transfers;Independent with ambulation;Needs assistance with ADLs -MR Receives Help From -- Facility staff;Family -MR Driving -- No -MR Vocational/Occupation -- Retired -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 -MR Fall within the last 6 months -- Yes -MR Fall within the last 6 months comment -- 2 -MR Activity Tolerance Comments -- Jess: deferred -MR Pain Assessment -- Advanced Dementia -MR Breathing -- 1 -MR Negative Vocalization -- 2 -MR Facial Expression -- 2 -MR Body Language -- 1 -MR Consolability -- 1 -MR PAINAD Score -- 7 -MR Arousal/Alertness -- Alert;Appropriate responses to stimuli -MR Orientation -- Oriented to person Baseline per daughter -MR Following Commands -- Follows one step commands with increased time -MR Compliance/Behavior -- Easy to engage -MR Light Touch -- WFL B LE -MR Sensation Comments -- Small bruise over upper back, otherwise no wounds or edema -MR Static Sitting-Balance Support -- Bilateral upper extremity supported -MR Static Sitting-Sitting Surface -- Bed -MR Static Sitting-Level of Assistance -- Distant supervision -MR Static Standing-Balance Support -- Bilateral upper extremity supported -MR Static Standing-Standing Surface -- Floor -MR Static Standing-Level of Assistance -- Minimum assistance -MR Dynamic Standing-Balance Support -- Bilateral upper extremity supported -MR Dynamic Standing-Balance -- Lateral lean;Forward lean -MR Dynamic Standing-Standing Surface -- Floor -MR Dynamic Standing-Level of Assistance -- Minimum assistance -MR Dynamic Standing-Comments -- Weight shifting, marching in place -MR Bed Mobility From 1 -- Supine -MR Bed Mobility Type 1 -- To -MR Bed Mobility to 1 -- Edge of bed toward R -MR Level of Assistance 1 -- Moderate Assist -MR Bed Mobility Comments 1 -- HOB 45 -MR Transfer From 1 -- Sit -MR Transfer Type 1 -- To and from -MR Transfer to 1 -- Stand -MR Technique 1 -- Sit to stand;Stand to sit -MR Transfer Device 1 -- Wheeled walker -MR Transfer Level of Assistance 1 -- Moderate Assist -MR Transfer From 2 -- Bed -MR Transfer Type 2 -- To -MR Transfer to 2 -- Chair with arms -MR Technique 2 -- Stand and step;To right -MR Transfer Device 2 -- Wheeled walker -MR Transfer Level of Assistance 2 -- Minimum Assist -MR Ambulation -- No -MR Ambulation Comments 1 -- 10MWT: steps to chair only due to pain -MR Stairs -- No -MR RLE Assessment -- X -MR RLE Comments -- Pain limited -MR LLE Assessment -- WFL -MR How much difficulty does the patient have: Turning over in bed -- 2 -MR How much difficulty does the patient currently have: Sitting down and standing up from a chair witharms? -- 2 -MR How much difficulty does the patient have: Moving from lying on back to sitting on the side of the bed? -- 2 -MR How much difficulty does the patient have: Moving to and from a bed to a chair including wheelchair? -- 3 -MR How much help does the patient currently need: Walk in hospital room? -- 3 -MR How much help from another person does the patient currently need: Climbing 3-5 steps with a railing? -- 1 -MR Total 6 Click Score (range 6-24) -- 13 -MR Score Interpretation -- 33.99 -MR Safe Environment End of Therapy Session -- Patient left in recliner;RN notified;Call light within reach;Chair alarm in place and activated -MR Prognosis -- Good -MR Problem List -- Reduced mobility;Debility;Decreased range of motion;Pain;Decreased safety awareness;Decreased cognition;Impaired judgement -MR Problem List Comments -- PT Diagnosis: Fall, R zone 1 sacral fx, R inf and sup pubic rami fxs, results in above listed activity deficits and impairments which prevent full participation in home and community mobility -MR PT Recommendation/Plan -- [facility] Return to facility with PT intervention -MR Patient at high risk for -- Falls;Readmission -MR PT Frequency during current admission -- 5-7x/wk -MR Treatment/Interventions during current admission -- Balance Training;Bed mobility;Functional activity;Functional transfer training;Gait training;Strengthening;Therapeutic activity;Therapeutic exercise;Transfer training -MR PT Evaluation Complete -- Yes -MR PT Start Time -- 854 -MR PT Stop Time -- 934 -MR PT Time Calculation (min) -- 40 min -MR User Richard (r) = Recorded By, (t) = Taken By, (c) = Cosigned By Initials Name Effective Dates AR Jose Maria Devlin, PT 02/06/21 - MR Edie Ramirez, PT 02/23/20 - PT TREATMENT (Last 168 Hours) PT Treatment Row Name 05/19/24 0820 05/17/24 0915 PT Last Visit Session Type Treatment -AW (r) AR (c) Treatment -MR Safe Environment Arm band checked;Patient found in supine;Gait belt utilized for all out of bed mobility -AW (r) AR (c) Arm band checked;Gait belt not utilized, see comment -MR Subjective Agreeable to Therapy -AW (r) AR (c) Agreeable to Therapy -MR Family/Caregiver Present No -AW (r) AR (c) No -MR Precautions Precautions Fall risk -AW (r) AR (c) Fall risk -MR Weight Bearing Restrictions Yes -AW (r) AR (c) Yes -MR RLE Weight Bearing WBAT -AW (r) AR (c) WBAT -MR Precaution Handout Issued No -AW (r) AR (c) No -MR Precaution Comments verbally reviewed precautions -AW (r) AR (c) -- Activity Tolerance Activity Tolerance Comments jess: deferred -AW (r) AR (c) Jess: unable -MR Pain Assessment Pain Assessment Odom-Cheng FACES -AW (r) AR (c) No/denies pain -MR Odom-Cheng FACES Pain Rating 4 -AW (r) AR (c) -- Pain Score 10 - Worst possible pain -AW (r) AR (c) -- Pain Type Acute pain -AW (r) AR (c) -- Pain Location Generalized -AW (r) AR (c) -- Pain Interventions RN Notified KHLOE Lombardi notified -AW (r) AR (c) -- Cognition Cognition Comments -- Extensive safety cues throughout session -MR Overall Cognitive Status Impaired -AW (r) AR (c) -- Arousal/Alertness Alert -AW (r) AR (c) Alert;Appropriate responses to stimuli -MR Orientation Oriented to person -AW (r) AR (c) Oriented to person -MR Following Commands Follows one step commands with repetition -AW (r) AR (c) Follows one step commands with repetition and extensive cues for safety -MR Compliance/Behavior -- Anxious restless irritability -MR Balance Tests Balance Tests No -AW (r) AR (c) -- Balance Balance Yes -AW (r) AR (c) -- Static Sitting Balance Static Sitting-Balance Support Bilateral upper extremity supported;Feet supported -AW (r) AR (c) -- Static Sitting-Sitting Surface Bed -AW (r) AR (c) -- Static Sitting-Level of Assistance Distant supervision -AW (r) AR (c) -- Static Sitting-Comment/# of Minutes for safety -AW (r) AR (c) -- Static Standing Balance Static Standing-Balance Support Bilateral upper extremity supported WW -AW (r) AR (c) Bilateral upper extremity supported -MR Static Standing-Standing Surface Floor -AW (r) AR (c) Floor -MR Static Standing-Level of Assistance Minimum assistance x2 -AW (r) AR (c) Minimum assistance -MR Static Standing-Comment/# of Minutes minAx2 for increased safety -AW (r) AR (c) -- Dynamic Standing Balance Dynamic Standing-Balance Support -- Bilateral upper extremity supported -MR Dynamic Standing-Balance -- Lateral lean;Forward lean -MR Dynamic Standing-Standing Surface -- Floor -MR Dynamic Standing-Level of Assistance -- Minimum assistance -MR Bed Mobility Bed Mobility Yes -AW (r) AR (c) -- Bed Mobility 1 Bed Mobility From 1 Supine -AW (r) AR (c) Supine -MR Bed Mobility Type 1 To -AW (r) AR (c) To -MR Bed Mobility to 1 Edge of bed;Short sit -AW (r) AR (c) Edge of bed -MR Level of Assistance 1 Minimum Assist -AW (r) AR (c) Minimum Assist -MR Bed Mobility Comments 1 min for LE management and trunk elevation -AW (r) AR (c) HOB 45 -MR Transfers Transfer Yes -AW (r) AR (c) -- Transfer 1 Transfer From 1 Sit;Bed -AW (r) AR (c) Sit -MR Transfer Type 1 To -AW (r) AR (c) To and from -MR Transfer to 1 Stand -AW (r) AR (c) Stand -MR Technique 1 Sit to stand -AW (r) AR (c) Sit to stand;Stand to sit -MR Transfer Device 1 Wheeled walker -AW (r) AR (c) Wheeled walker -MR Transfer Level of Assistance 1 Minimum Assist x2 -AW (r) AR (c) Minimum Assist -MR Trials/Comments 1 Bailey x2 for increased safety, pt requires verbal cues for hand placement -AW (r) AR (c) -- Transfers 2 Transfer From 2 Bed -AW (r) AR (c) Bed -MR Transfer Type 2 To -AW (r) AR (c) To -MR Transfer to 2 Chair with arms -AW (r) AR (c) Chair with arms -MR Technique 2 Stand pivot -AW (r) AR (c) Stand and step;To left -MR Transfer Device 2 Wheeled walker -AW (r) AR (c) Wheeled walker -MR Transfer Level of Assistance 2 Minimum Assist x2 -AW (r) AR (c) Minimum Assist -MR Trials/Comments 2 Bailey x2 for increased safety, patient requires verbal cues for increased safety, hand placement, utilizing UEs to help advance LEs -AW (r) AR (c) -- Transfers 3 Transfer From 3 Stand -AW (r) AR (c) -- Transfer Type 3 To -AW (r) AR (c) -- Transfer to 3 Sit;Chair with arms -AW (r) AR (c) -- Technique 3 Stand to sit -AW (r) AR (c) -- Transfer Device 3 Wheeled walker -AW (r) AR (c) -- Transfer Level of Assistance 3 Minimum Assist minAx2 -AW (r) AR (c) -- Trials/Comments 3 Bailey x2 for increased safety and controlled descent -AW (r) AR (c) -- Ambulation Ambulation No -AW (r) AR (c) No Pt required extensive safety cues throughout session, gait deferreddue to risk of fall -MR Stairs Stairs No -AW (r) AR (c) No -MR Basic Mobility - 6 Click How much difficulty does the patient have: Turning over in bed 3 -AW (r) AR (c) 3 -MR How much difficulty does the patient currently have: Sitting down and standing up from a chair witharms? 3 -AW (r) AR (c) 3 -MR How much difficulty does the patient have: Moving from lying on back to sitting on the side of the bed? 3 -AW (r) AR (c) 3 -MR How much difficulty does the patient have: Moving to and from a bed to a chair including wheelchair? 3 -AW (r) AR (c) 3 -MR How much help does the patient currently need: Walk in hospital room? 2 -AW (r) AR (c) 3 -MR How much help from another person does the patient currently need: Climbing 3-5 steps with a railing? 1 -AW (r) AR (c) 1 -MR Total 6 Click Score (range 6-24) 15 -AW 16 -MR Score Interpretation 36.97 -AW (r) AR (c) 38.32 -MR Safe Environment End of Therapy Session Safe Environment End of Therapy Session Patient left in recliner;RN notified;Chair alarm in place and activated;Call light within reach -AW (r) AR (c) Patient left in recliner;RN notified;Chair alarmin place and activated;Call light within reach positional lap belt in place -MR Assessment Prognosis Good -AW (r) AR (c) Good -MR Problem List Reduced mobility;Decreased strength;Decreased endurance;Impaired balance;Decreased cognition;Decreased safety awareness -AW (r) AR (c) Reduced mobility;Debility;Decreased range of motion;Pain;Decreased safety awareness;Decreased cognition;Impaired judgement -MR Barriers to Discharge Current Mobility Status -AW (r) AR (c) -- Plan Plan Continue with current plan;If this is the last note, consider this the discharge summary -AW (r) AR (c) Continue with current plan;If this is the last note, consider this the discharge summary -MR Recommendation/Plan PT Recommendation/Plan [facility] return to facility with PT intervention - AW (r) AR (c) [facility] Return to facility with PT intervention -MR Patient at high risk for Falls;Readmission;Injury due to decreased ability to care for self;Injury due to reduced functional status;Injury due to impaired cognition;Injury due to balance deficits -AW(r) AR (c) Falls;Readmission;Injury due to impaired cognition -MR PT Frequency during current admission 5-7x/wk -AW (r) AR (c) 5-7x/wk -MR Treatment/Interventions during current admission Balance Training;Bed mobility;Endurance training;Functional activity;Functional transfer training;Gait training;Strengthening;Therapeutic activity;Therapeutic exercise;Transfer training -AW (r) AR (c) Balance Training;Bed mobility;Functional activity;Functional transfer training;Gait training;Strengthening;Therapeutic activity;Therapeutic exercise;Transfer training -MR Progress during current admission Progressing toward goals -AW (r) AR (c) Progressing toward goals -MR PT - OK to Discharge No -AW (r) AR (c) -- PT Time Calculation PT Start Time 0820 -AW (r) AR (c) 0915 -MR PT Stop Time 0843 -AW (r) AR (c) 0940 -MR PT Time Calculation (min) 23 min -AW 25 min -MR User Richard (r) = Recorded By, (t) = Taken By, (c) = Cosigned By Initials Name Effective Dates AR Jose Maria Devlin, PT 02/06/21 - MR EstebanVerónica britohan, PT 02/23/20 - AW Christian Blank 03/14/24 - PT Notes 05/18/2024 3:58 PM Progress Notes signed by Jose Maria Devlin, PT [employer] * Plan of Care - Maritza Rene RN - 05/20/2024 9:06 AM CST Problem: Restraint for Interference with Medical Safety Goal: Knowledge of restraints will improve Outcome: Progressing Goal: Remains free from injury from restraints Outcome: Progressing Goal: Free from restraint(s) Outcome: Progressing Problem: Skin Integrity Impairment Risk Goal: Mobility will improve Outcome: Progressing Goal: Understanding of ways to prevent future skin breakdown will improve Outcome: Progressing Goal: Nutritional status will improve Outcome: Progressing Goal: Risk for impaired skin integrity will decrease Outcome: Progressing Problem: Fall Risk Goal: Ability to state ways to decrease the risk of falls will improve Outcome: Progressing Goal: Will remain free from falls Outcome: Progressing Goal: Will remain free from injury from falls Outcome: Progressing Problem: Activity Goal: Risk for activity intolerance and fatigue will decrease Outcome: Progressing Goal: Ability to tolerate increased activity will improve Outcome: Progressing Goal: Ability to avoid complications of mobility impairment will improve Outcome: Progressing Problem: Discharge Planning Goal: Understanding discharge needs will improve Outcome: Progressing Problem: Fluid Volume Goal: Ability to maintain a balanced intake and output will improve Outcome: Progressing Goal: Will show no signs and symptoms of excessive bleeding Outcome: Progressing Problem: General Patient Education Goal: Knowledge of disease process, condition or treatment will be improved Outcome: Progressing Problem: Nutritional Goal: Nutrient intake appropriate for improving, restoring or maintaining nutritional needs Outcome: Progressing Goal: Implement dietary regimen as ordered Outcome: Progressing Problem: Tissue Perfusion Goal: Adequacy of tissue perfusion will improve Outcome: Progressing Problem: Lack of Knowledge Goal: Ability to develop a pain control plan will improve Outcome: Progressing Problem: Medication Goal: Satisfaction with pain management medication regimen will improve Outcome: Progressing Problem: Sensory Goal: Ability to identify factors that increase pain levels will improve while working to decrease the patient's pain levels Outcome: Progressing Problem: Coping Goal: Ability to cope will improve Outcome: Progressing Problem: Health Behavior Goal: Identification of resources available to assist in meeting health care needs will improve Outcome: Progressing Goals: Clinical Goals for the Shift: VS, pain control, monitor I&O, sitter at bedside , remain safe and 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 [facility] Trauma [facility] Initial Geriatric Assessment Note Primary Team GTS PT/OT Assessment Orders Placed? Yes -See PT/OT notes regarding their assessment. Fall Risk Assessment: Fall as primary trauma: Yes High Risk (Patients who have had more than one fall or have had a fall with injury.) Fall education provided? Yes: GTS Nurse Coordinator provided fall resources with trauma services booklet. Vitamin D supplementation assessment? Yes- Vitamin D supplementation added to discharge medications; Vitamin D3 1000 units/day. Bone Health referral at discharge (required for any patient with osteoporosis or fracture): Yes-Bone Health referral placed. Medication review using BEERS Criteria Potentially inappropriate medications identified: Ativan PRN and Seroquel Syncope evaluation needed? Yes Review of past medical records? [] Preoperative screening: Patient deemed non-operative. Trauma-Specific Frailty Index Screening (completed by RN coordinator, see flowsheets): Frailty level +/-: frail >0.25 (positive) (05/17/24 7575) Delirium prevention: The patient does not wear corrective lenses - if so, will make sure they have their corrective lenses The patient does not wear hearing aids - if so, will make sure they have their hearing aids Vital signs do not need to be obtained between 10pm and 6am Daily blood work may be drawn during the daytime hours unless otherwise specified and are not needed to be drawn before daily rounds. ACP Discussion: completed on 05/18 with children, orders updated in chart to reflect discussion, Full Code Next of Kin/Surrogate Decision Maker: Extended Emergency Contact Information Primary Emergency Contact: DANDY CUELLAR Relation: Daughter Preferred language: Kuwaiti German Professor needed? No Secondary Emergency Contact: Torrey Navarro [facility] Mobile Relation: Son Primary care provider identified? Yes PCP per [facility] records- Cedric Nguyen MD If BMI <20, or Tube feeds, or TPN - Nutrition consult placed? Yes Body mass index is 37.52 kg/m??. Home VTE prophylaxis at discharge (i.e. orthopedic injuries)? Yes Stop Date/Length of therapy: Eliquis 2.5mg BID x4 weeks Home Anticoagulation Indication for home anticoagulation: daily ASA Does the patient need continued usage? Yes Risk of future bleeding events (i.e. frequent falls)? Yes Does the patient need home anticoagulation resumed? Yes, resume home anticoagulation Admission Imaging Reviewed [] Were there any incidental findings? No If yes: add to problem list. Falguni Galvez NP Section of Acute and Critical Care Surgery ESS TANK TENDER * Plan of Care - Jannette Reeves RN - 05/19/2024 1:30 PM CST 05/16/24 [facility] Discharge Planning Support System Children (geraldo Cuellar [phone]) Anticipated discharge [facility] care [facility] ([facility]) Does the patient need discharge transport arranged? Yes Type of Transportation Ambulance/EMS Post Acute Care Plan Home Care Services N/A OP Services N/A DME N/A Post Acute Care Facility Yes Referral Status Started Post Acute Facility Name and Contact -- CM Progression of Care Update Per Medical Chart/Rounds/IDR: 83 y.o. year old female PMH of Alzheimer's Dementia, diabetes mellitus type 2, hypertension, dementia, presenting as an unwitnessed [facility] right pubic ramus fracture ADD: 05/20 Discharge Barriers: requiring 1:1 sitter due to dementia and agitation, restarted home Ativan. Patient will need to be sitter free x 24 hour prior to discharge to SNF, nursing/primary team aware. Referrals: Patient A&O x 1 at baseline, CM spoke to geraldo Cuellar [phone] re discharge planning again on 05/18. Dandy now interested in [facility] [phone] - electronic referral sent on 05/18 - CM spoke to Awilda in admissions at [facility] Unit - per Awilda still awaiting determination as of this time If [facility] unable to accept - CM confirmed [facility] [phone] (Betty antoinette [phone]) that patient will be able to return upon discharge Education Needs Identified (plan): TBD F/U Appointments: to be arranged per primary team Addendum as of 139 - [facility] unable to accept for admission. Patient to return to [facility] upon discharge. CM updated geraldo Cuellar [phone] Patient's Identified Problem/Goal Problem:?Ensure acute medical needs are met and that patient has a safe discharge plan. Goal:?Secure a discharge plan that patient/family are agreeable with?and ensure patient has continuum of care. Patient and/or family are agreeable with plan. environmental manager will continue to follow and assist with discharge planning as needed. If any further discharge needs arise, please contact the covering welfare case worker. ESS TANK TENDER ESS TANK TENDER * Plan of Care - Maria C Aguirre RN - 05/19/2024 9:45 AM PROCESS TANK TENDER Problem: Restraint for Interference with Medical Safety Goal: Knowledge of restraints will improve Outcome: Progressing Goal: Remains free from injury from restraints Outcome: Progressing Goal: Free from restraint(s) Outcome: Progressing Problem: Activity Goal: Risk for activity intolerance and fatigue will decrease Outcome: Progressing Goal: Ability to tolerate increased activity will improve Outcome: Progressing Goal: Ability to avoid complications of mobility impairment will improve Outcome: Progressing Problem: Discharge Planning Goal: Understanding discharge needs will improve Outcome: Progressing Problem: Fluid Volume Goal: Ability to maintain a balanced intake and output will improve Outcome: Progressing Goal: Will show no signs and symptoms of excessive bleeding Outcome: Progressing Problem: General Patient Education Goal: Knowledge of disease process, condition or treatment will be improved Outcome: Progressing Problem: Nutritional Goal: Nutrient intake appropriate for improving, restoring or maintaining nutritional needs Outcome: Progressing Goal: Implement dietary regimen as ordered Outcome: Progressing Problem: Tissue Perfusion Goal: Adequacy of tissue perfusion will improve Outcome: Progressing Problem: Lack of Knowledge Goal: Ability to develop a pain control plan will improve Outcome: Progressing Problem: Medication Goal: Satisfaction with pain management medication regimen will improve Outcome: Progressing Problem: Sensory Goal: Ability to identify factors that increase pain levels will improve while working to decrease the patient's pain levels Outcome: Progressing Problem: Coping Goal: Ability to cope will improve Outcome: Progressing Problem: Health Behavior Goal: Identification of resources available to assist in meeting health care needs will improve Outcome: Progressing Problem: Skin Integrity Impairment Risk Goal: Mobility will improve Outcome: Progressing Goal: Understanding of ways to prevent future skin breakdown will improve Outcome: Progressing Goal: Nutritional status will improve Outcome: Progressing Goal: Risk for impaired skin integrity will decrease Outcome: Progressing Problem: Fall Risk Goal: Ability to state ways to decrease the risk of falls will improve Outcome: Progressing Goal: Will remain free from falls Outcome: Progressing Goal: Will remain free from injury from falls Outcome: Progressing Goals: Clinical Goals for the Shift: monitor closely Summary: progressing ESS TANK TENDER * Plan of Care - Fe Bhatti RN - 05/19/2024 5:45 AM CST Goals: Clinical Goals for the Shift: VS stable, promote rest Summary: Unable to collect vital signs intermittently overnight due to patient agitation/confusion and refusal. VS stable and pt presented no signs of acute VS changes overnight. Rest promoted by [facility] care. Pt restless and confused overnight, but slept several hours. Pt resting in bed w wheels locked, bed alarm on, bed in lowest position, and call light within reach. Sitter present at bedside at this time. Problem: Restraint for Interference with Medical Safety Goal: Knowledge of restraints will improve Outcome: Progressing Goal: Remains free from injury from restraints Outcome: Progressing Goal: Free from restraint(s) Outcome: Progressing Problem: Skin Integrity Impairment Risk Goal: Mobility will improve Outcome: Progressing Goal: Understanding of ways to prevent future skin breakdown will improve Outcome: Progressing Goal: Nutritional status will improve Outcome: Progressing Goal: Risk for impaired skin integrity will decrease Outcome: Progressing Problem: Activity Goal: Risk for activity intolerance and fatigue will decrease Outcome: Progressing Goal: Ability to tolerate increased activity will improve Outcome: Progressing Goal: Ability to avoid complications of mobility impairment will improve Outcome: Progressing Problem: General Patient Education Goal: Knowledge of disease process, condition or treatment will be improved Outcome: Progressing Problem: Nutritional Goal: Nutrient intake appropriate for improving, restoring or maintaining nutritional needs Outcome: Progressing Goal: Implement dietary regimen as ordered Outcome: Progressing ESS TANK TENDER * Plan of Care - Adonis Marion - 05/18/2024 7:10 PM CST Problem: Restraint for Interference with Medical Safety Goal: Knowledge of restraints will improve Outcome: Ongoing Goal: Remains free from injury from restraints Outcome: Ongoing Goal: Free from restraint(s) Outcome: Ongoing Problem: Activity Goal: Risk for activity intolerance and fatigue will decrease Outcome: Ongoing Goal: Ability to tolerate increased activity will improve Outcome: Ongoing Goal: Ability to avoid complications of mobility impairment will improve Outcome: Ongoing Problem: Discharge Planning Goal: Understanding discharge needs will improve Outcome: Ongoing Problem: Fluid Volume Goal: Ability to maintain a balanced intake and output will improve Outcome: Ongoing Goal: Will show no signs and symptoms of excessive bleeding Outcome: Ongoing Problem: General Patient Education Goal: Knowledge of disease process, condition or treatment will be improved Outcome: Ongoing Problem: Nutritional Goal: Nutrient intake appropriate for improving, restoring or maintaining nutritional needs Outcome: Ongoing Goal: Implement dietary regimen as ordered Outcome: Ongoing Problem: Tissue Perfusion Goal: Adequacy of tissue perfusion will improve Outcome: Ongoing Problem: Lack of Knowledge Goal: Ability to develop a pain control plan will improve Outcome: Ongoing Problem: Medication Goal: Satisfaction with pain management medication regimen will improve Outcome: Ongoing Problem: Sensory Goal: Ability to identify factors that increase pain levels will improve while working to decrease the patient's pain levels Outcome: Ongoing Problem: Coping Goal: Ability to cope will improve Outcome: Ongoing Problem: Health Behavior Goal: Identification of resources available to assist in meeting health care needs will improve Outcome: Ongoing Problem: Skin Integrity Impairment Risk Goal: Mobility will improve Outcome: Ongoing Goal: Understanding of ways to prevent future skin breakdown will improve Outcome: Ongoing Goal: Nutritional status will improve Outcome: Ongoing Goal: Risk for impaired skin integrity will decrease Outcome: Ongoing Problem: Fall Risk Goal: Ability to state ways to decrease the risk of falls will improve Outcome: Ongoing Goal: Will remain free from falls Outcome: Ongoing Goal: Will remain free from injury from falls Outcome: Ongoing Goals: Clinical Goals for the Shift: VS stable, pain management, promote rest Summary: Patient remains restless in bed, difficult to redirect patient. Falguni TEACHER LEARNING DISABLED at bedside to assess, one time dose of Zyprexa given and prn pain medication administered. vision teacher remained atbedside. Patient care handoff completed. ESS TANK TENDER * Plan of Care - Jannette Reeves RN - 05/18/2024 9:08 AM CST 05/16/24 [facility] Discharge Planning Support System Children (geraldo Cuellar [phone]) Anticipated discharge [facility] care [facility] ([facility] term [facility]) Does the patient need discharge transport arranged? Yes Type of Transportation Ambulance/EMS Post Acute Care Plan Home Care Services N/A OP Services N/A DME N/A Post Acute Care Facility Yes Referral Status Started Post Acute Facility Name and Contact -- CM Progression of Care Update Per Medical Chart/Rounds/IDR: 83 y.o. year old female PMH of Alzheimer's Dementia, diabetes mellitus type 2, hypertension, dementia, presenting as an unwitnessed [facility] right pubic ramus fracture ADD: 05/19 Discharge Barriers: patient had sitter/restraints in place yesterday. Will need to be sitter/restraint free x 24 hours prior discharge to facility Referrals: Patient A&O x 1 at baseline, CM spoke to grealdo Cuellar [phone] re discharge planning again on 05/18. Dandy now interested in [facility] [phone] - electronic referral sent on 05/18 - awaiting response Education Needs Identified (plan): TBD F/U Appointments: to be arranged per primary team Update as of 1308 - CM spoke to Awilda in admissions at [facility] [phone] - referral still under review at this time. Awilda to follow up with case management Patient's Identified Problem/Goal Problem:?Ensure acute medical needs are met and that patient has a safe discharge plan. Goal:?Secure a discharge plan that patient/family are agreeable with?and ensure patient has continuum of care. Patient and/or family are agreeable with plan. environmental manager will continue to follow and assist with discharge planning as needed. If any further discharge needs arise, please contact the covering welfare case worker. ESS TANK TENDER ESS TANK TENDER ESS TANK TENDER * ECIN Note - Jannette Reeves RN - 05/18/2024 8:59 AM CST Images from the original note were not included. Patient Information: Head to Toe Assess Default Flowsheet Data (most recent) Complex Assessment - 05/18/24 06 Urine Assessment Urine Color Yellow/straw Urine Appearance Clear Urine Odor Unable to assess , Meds and Admin Active Only All Meds/Most Recent Administrations morphine injection 2 mg [[id number]] Ordering Provider: Alexis Sawyer MD Status: Completed (Past End Date/Time) Ordered On: 05/14/24619 Starts/Ends: 05/14/24620 - 05/14/24625 Ordered Dose (Remaining/Total): 2 mg (0/1) Route: intravenous Frequency: Once Ordered Rate/Order Duration: -- / 4 Minutes Line Med Link Info Comment Peripheral IV 05/14/24 20 G Anterior;Distal;Left Forearm 05/14/24621 by Sarina Chavira, KHLOE-- Timestamps Action Dose / Duration Route Other Information 05/14/24621 Given 2 mg 4 Minutes intravenous Performed by: Sarina Chavira RN Scanned Package: 0111-3758-83 haloperidol (HALDOL) injection 5 mg [[id number]] Ordering Provider: Alexis Sawyer MD Status: Completed (Past End Date/Time) Ordered On: 05/14/2431 Starts/Ends: 05/14/2432 - 05/14/2432 Ordered Dose (Remaining/Total): 5 mg (0/1) Route: intravenous Frequency: Once Ordered Rate/Order Duration: -- / -- Admin Instructions: If administered IV push, administer over 5 min for adults Line Med Link Info Comment Peripheral IV 05/14/24 22 G Left;Posterior Hand 05/14/24631 by Sarina Chavira RN -- Timestamps Action Dose Route Other Information 05/14/24631 Given 5 mg intravenous Performed by: Sarina Chavira RN Scanned Package: 51098-743-25 ketorolac (TORADOL) 15 mg/mL injection 15 mg [[id number]] Ordering Provider: Alexis Sawyer MD Status: Completed (Past End Date/Time) Ordered On: 05/14/2453 Starts/Ends: 05/14/2454 - 05/14/24715 Ordered Dose (Remaining/Total): 15 mg (0/1) Route: intravenous Frequency: Once Ordered Rate/Order Duration: -- / -- Admin Instructions: For Adult IV push, administer over 15 seconds Line Med Link Info Comment Peripheral IV 05/14/24 20 G Left Hand 05/14/24715 by Sarina Chavira RN -- Timestamps Action Dose Route Other Information 05/14/24715 Given 15 mg intravenous Performed by: Sarina Chavira RN Scanned Package: 01952-956-85 vancomycin 1500 mg/515 mL in sodium chloride 0.9% (premix) 1,500 mg [[id number]] Ordering Provider: Frandy Ferreira MD Status: Completed (Past End Date/Time) Ordered On: 05/14/24 075 Starts/Ends: 05/14/24 075 - 05/14/24 0956 Ordered Dose (Remaining/Total): 15 mg/kg (0/1) Route: intravenous Frequency: Once Ordered Rate/Order Duration: -- / 90 Minutes Line Med Link Info Comment Peripheral IV 05/14/24 20 G Left Hand 05/14/24801 by Sarina Chavira RN -- Timestamps Action Dose / Duration Route Other Information 05/14/24801 New Bag 1,500 mg 90 Minutes intravenous Performed by: Sarina Chavira RN Scanned Package: 1496-4978-11 haloperidol (HALDOL) injection 5 mg [[id number]] Ordering Provider: Frandy Ferreira MD Status: Completed (Past End Date/Time) Ordered On: 05/14/24953 Starts/Ends: 05/14/24954 - 05/14/24956 Ordered Dose (Remaining/Total): 5 mg (0/1) Route: intravenous Frequency: Once Ordered Rate/Order Duration: -- / -- Admin Instructions: If administered IV push, administer over 5 min for adults Line Med Link Info Comment Peripheral IV 05/14/24 22 G Right Hand 05/14/24956 by Denise Mendez RN -- Timestamps Action Dose Route Other Information 05/14/24956 Given 5 mg intravenous Performed by: Denise Mendez RN Scanned Package: 48525-065-40 fentaNYL (SUBLIMAZE) preservative free injection 50 mcg [[id number]] Ordering Provider: Frandy Ferreira MD Status: Completed (Past End Date/Time) Ordered On: 05/14/24953 Starts/Ends: 05/14/24954 - 05/14/24956 Ordered Dose (Remaining/Total): 50 mcg (0/1) Route: intravenous Frequency: Once Ordered Rate/Order Duration: -- / -- Line Med Link Info Comment Peripheral IV 05/14/24 20 G Left Hand 05/14/24956 by Denise Mendez RN -- Timestamps Action Dose Route Other Information 05/14/24956 Given 50 mcg intravenous Performed by: Denise Mendez RN Scanned Package: 1027-3807-28 amLODIPine (NORVASC) tablet 10 mg [[id number]] Ordering Provider: Vikash Servin MD Status: Dispensed Ordered On: 05/14/241757 Start: 05/14/241829 Ordered Dose (Remaining/Total): 10 mg (--/--) Route: oral Frequency: Daily Ordered Rate/Order Duration: -- / -- Timestamps Action Dose Route Other Information 05/17/24 0852 Given 10 mg oral Performed by: Jen Li RN Scanned Package: [id number] atorvastatin (LIPITOR) tablet 10 mg [[id number]] Ordering Provider: Vikash Servin MD Status: Dispensed Ordered On: 05/14/241757 Start: 05/14/241829 Ordered Dose (Remaining/Total): 10 mg (--/--) Route: oral Frequency: Daily Ordered Rate/Order Duration: -- / -- Timestamps Action Dose Route Other Information 05/17/24 0853 Given 10 mg oral Performed by: Jen Li RN Scanned Package: [id number] citalopram (CeleXA) tablet 20 mg [[id number]] Ordering Provider: Vikash Servin MD Status: Dispensed Ordered On: 05/14/241757 Start: 05/14/241829 Ordered Dose (Remaining/Total): 20 mg (--/--) Route: oral Frequency: Daily Ordered Rate/Order Duration: -- / -- Timestamps Action Dose Route Other Information 05/17/2453 Given 20 mg oral Performed by: Jen Li RN Scanned Package: 0438-4231-75 docusate sodium (COLACE) capsule 100 mg [[id number]] Ordering Provider: Vikash Servin MD Status: Dispensed Ordered On: 05/14/241757 Start: 05/14/242099 Ordered Dose (Remaining/Total): 100 mg (--/--) Route: oral Frequency: 2 times daily Ordered Rate/Order Duration: -- / -- Timestamps Action Dose Route Other Information 05/17/242099 Given 100 mg oral Performed by: Fe Bhatti RN Scanned Package: 79828-413-[address] (PROTONIX) extended release tablet 40 mg [[id number]] Ordering Provider: Vikash Servin MD Status: Dispensed Ordered On: 05/14/241757 Start: 05/14/241829 Ordered Dose (Remaining/Total): 40 mg (--/--) Route: oral Frequency: Daily Ordered Rate/Order Duration: -- / -- Admin Instructions: Do not crush, chew, cut, dissolve, open or otherwise manipulate tablet/capsule. Timestamps Action Dose Route Other Information 05/17/24854 Given 40 mg oral Performed by: Jen Li RN Scanned Package: [id number] QUEtiapine (SEROquel) tablet 50 mg [[id number]] Ordering Provider: Vikash Servin MD Status: Dispensed Ordered On: 05/14/241757 Start: 05/14/242099 Ordered Dose (Remaining/Total): 50 mg (--/--) Route: oral Frequency: Nightly Ordered Rate/Order Duration: -- / -- Timestamps Action Dose Route Other Information 05/17/242099 Given 50 mg oral Performed by: Fe Bhatti RN Scanned Package: 41020-555-15, 75467-692-68 senna-docusate (PERICOLACE) 8.6-50 mg per tablet 1 tablet [[id number]] Ordering Provider: Vikash Servin MD Status: Dispensed Ordered On: 05/14/241757 Start: 05/14/242099 Ordered Dose (Remaining/Total): 1 tablet (--/--) Route: oral Frequency: 2 times daily Ordered Rate/Order Duration: -- / -- Admin Instructions: Hold for diarrhea. Timestamps Action Dose Route Other Information 05/17/242099 Given 1 tablet oral Performed by: Fe Bhatti RN Scanned Package: 6815-1087-77 HYDROmorphone (DILAUDID) injection 0.5 mg [[id number]] Ordering Provider: Frandy Ferreira MD Status: Completed (Past End Date/Time) Ordered On: 05/14/241402 Starts/Ends: 05/14/241403 - 12/07/24 1406 Ordered Dose (Remaining/Total): 0.5 mg (0/1) Route: intravenous Frequency: Once Ordered Rate/Order Duration: -- / 2 Minutes Line Med Link Info Comment Peripheral IV 05/14/24 20 G Left Hand 05/14/24 1404 by Denise Mendze RN -- Timestamps Action Dose / Duration Route Other Information 05/14/24 1404 Given 0.5 mg 2 Minutes intravenous Performed by: Denise Mendez RN Scanned Package: 6460-4974-75 haloperidol (HALDOL) injection 5 mg [[id number]] Ordering Provider: Berto Olivas MD Status: Completed (Past End Date/Time) Ordered On: 05/14/241509 Starts/Ends: 05/14/24 151 - 05/14/24 151 Ordered Dose (Remaining/Total): 5 mg (0/1) Route: intravenous Frequency: Once Ordered Rate/Order Duration: -- / -- Admin Instructions: If administered IV push, administer over 5 min for adults Line Med Link Info Comment Peripheral IV 05/14/24 20 G Left Hand 05/14/24 1510 by Denise Mendez RN -- Timestamps Action Dose Route Other Information 05/14/24 151 Given 5 mg intravenous Performed by: Denise Mendze RN fentaNYL (SUBLIMAZE) preservative free injection 50 mcg [[id number]] Ordering Provider: Frandy Ferreira MD Status: Completed (Past End Date/Time) Ordered On: 05/14/241646 Starts/Ends: 05/14/241647 - 05/14/241647 Ordered Dose (Remaining/Total): 50 mcg (0/1) Route: intravenous Frequency: Once Ordered Rate/Order Duration: -- / -- Line Med Link Info Comment Peripheral IV 05/14/24 20 G Left Hand 05/14/24 164 by Denise Mendez RN -- Timestamps Action Dose Route Other Information 05/14/241647 Given 50 mcg intravenous Performed by: Denise Mendez RN Scanned Package: [id number] haloperidol (HALDOL) injection 2.5 mg [[id number]] Ordering Provider: Berto Olivas MD Status: Completed (Past End Date/Time) Ordered On: 05/14/241710 Starts/Ends: 05/14/241711 - 05/14/241713 Ordered Dose (Remaining/Total): 2.5 mg (0/1) Route: intravenous Frequency: Once Ordered Rate/Order Duration: -- / -- Admin Instructions: If administered IV push, administer over 5 min for adults Line Med Link Info Comment Peripheral IV 05/14/24 20 G Left Hand 05/14/241713 by Denise Mendez RN -- Timestamps Action Dose Route Other Information 05/14/241713 Given 2.5 mg intravenous Performed by: Denise Mendez RN Scanned Package: 24241-959-47 levothyroxine (SYNTHROID) tablet 137 mcg [[id number]] Ordering Provider: Spike Tidwell MD Status: Dispensed Ordered On: 05/14/242047 Start: 05/15/24 0600 Ordered Dose (Remaining/Total): 137 mcg (--/--) Route: oral Frequency: Daily (early AM) Ordered Rate/Order Duration: -- / -- Admin Instructions: Administer on an empty stomach, preferably 30 minutes before breakfast. Take 4 hours apart from antacids, iron and calcium products. Separate from tube feeds, if applicable. Timestamps Action Dose Route Other Information 05/18/24 0551 Given 137 mcg oral Performed by: Fe Bhatti RN Scanned Package: [id number] sodium chloride 0.9% bolus 500 mL [[id number]] Ordering Provider: Spike Tidwell MD Status: Completed (Past End Date/Time) Ordered On: 05/14/242251 Starts/Ends: 05/14/242329 - 05/14/242313 Ordered Dose (Remaining/Total): 500 mL (0/1) Route: intravenous Frequency: Once Ordered Rate/Order Duration: -- / -- Timestamps Action Dose Route Other Information 05/14/242313 New Bag 500 mL intravenous Performed by: Nataliya Saxena RN Scanned Package: [id number] dextrose gel in packet 15 g [[id number]] Ordering Provider: Spike Tidwell MD Status: Verified Ordered On: 05/15/24535 Start: 05/15/24535 Ordered Dose (Remaining/Total): 15 g (--/--) Route: oral Frequency: Every 15 min PRN Ordered Rate/Order Duration: -- / -- Admin Instructions: If patient is alert and able to eat/drink, give 15 gm glucose or one juice (4 fluid ounces) NOT ORANGE JUICE. After treatment for hypoglycemia, recheck BG followed by treatment every 15 minutes until the BG is greater than 100 mg/dL. Then check BG 1 hour post-treatment. If BG isless than 100 mg/dL, repeat Q15 minute BG checks and treatment. Call MD for each episode of hypoglycemia. (No admins scheduled or recorded for this medication) dextrose (D10W) 10% bolus 250 mL [[id number]] Ordering Provider: Spike Tidwell MD Status: Verified Ordered On: 05/15/24535 Start: 05/15/24535 Ordered Dose (Remaining/Total): 250 mL (--/--) Route: intravenous Frequency: Every 15 min PRN Ordered Rate/Order Duration: 1,000 mL/hr / 15 Minutes Admin Instructions: After treatment for hypoglycemia, recheck BG followed by treatment every 15 minutes until the BG is greater than 100 mg/dL. Then check BG 1 hour post treatment. If BG is less [id number] mg/dL, repeat Q15 minute BG checks and treatment. Call MD for each episode of hypoglycemia. (No admins scheduled or recorded for this medication) glucagon injection 1 mg [[id number]] Ordering Provider: Spike Tidwell MD Status: Verified Ordered On: 05/15/24535 Start: 05/15/24535 Ordered Dose (Remaining/Total): 1 mg (--/--) Route: intramuscular Frequency: Every 30 min PRN Ordered Rate/Order Duration: -- / -- Admin Instructions: After Glucagon is administered, position patient on side if possible to avoid aspiration. Obtain IV access. Follow glucagon treatment with glucose treatment or IV dextrose. After treatment for hypoglycemia, recheck BG followed by treatment every 15 minutes until the BG isgreater than 100 mg/dL. Then check BG 1 hour post treatment. If BG is less than 100 mg/dL, repeat Q15 minute BG checks and treatment. Call MD for each episode of hypoglycemia. Reconstitute 1 mg vial with 1 mL SWFI. Use immediately following reconstitution. (No admins scheduled or recorded for this medication) insulin lispro (HumaLOG, ADMELOG) 100 unit/mL injection 0-5 Units [[id number]] Ordering Provider: Spike Tidwell MD Status: Dispensed Ordered On: 05/15/24535 Start: 05/15/24 0800 Ordered Dose (Remaining/Total): 0-5 Units (--/--) Route: subcutaneous Frequency: 3 times daily with meals Ordered Rate/Order Duration: -- / -- Admin Instructions: Blood glucose mg/dL: 149 or less: No insulin 150-199: add 1 unit 200-249: add 2 units 250-299: add 3 units 300-349: add 4 units and notify physician for adjustment of insulin orders. 350-399: add 5 units and notify physician for adjustment of insulin orders. Over 400: Notify physician for adjustment of insulin orders. Do NOT hold for NPO Status Timestamps Action Dose Route / Site Other Information 05/17/24 1214 Given 1 Units subcutaneous Left Lower Abdomen Performed by: Jen Li RN Scanned Package: [id number] insulin lispro (HumaLOG, ADMELOG) 100 unit/mL injection 0-4 Units [[id number]] Ordering Provider: Spike Tidwell MD Status: Dispensed Ordered On: 05/15/2436 Start: 05/15/24 2100 Ordered Dose (Remaining/Total): 0-4 Units (--/--) Route: subcutaneous Frequency: Nightly Ordered Rate/Order Duration: -- / -- Admin Instructions: Blood glucose mg/dL: 199 or less: No insulin 200-249: add 1 unit 250-299: add 2 units 300-349: add 3 units and notify physician for adjustment of insulin orders. 350- 399: add 4 units and notify physician for adjustment of insulin orders. Over 400: Notify physician for adjustment of insulin orders. Do NOT hold for NPO Status (No admins scheduled or recorded for this medication) QUEtiapine (SEROquel) tablet 25 mg [[id number]] Ordering Provider: Cain Demarco MD Status: Completed (Past End Date/Time) Ordered On: 05/15/24 1400 Starts/Ends: 05/15/24 1445 - 05/15/24 1448 Ordered Dose (Remaining/Total): 25 mg (0/1) Route: oral Frequency: Once Ordered Rate/Order Duration: -- / -- Timestamps Action Dose Route Other Information 05/15/24 1448 Given 25 mg oral Performed by: Betsy Hernandez Scanned Package: [id number] lidocaine (ASPERCREME) 4 % patch 1 patch [[id number]] Ordering Provider: Cain Demarco MD Status: Dispensed Ordered On: 05/15/24 1419 Start: 05/15/24 1500 Ordered Dose (Remaining/Total): 1 patch (--/--) Route: transdermal Frequency: Every 24 hours Ordered Rate/Order Duration: -- / 12 Hours Question Answer Comment Apply to affected area:: abdomen -- Timestamps Action Dose / Duration Route / Site Other Information 05/17/24 1516 Medication Applied 1 patch 12 Hours transdermal Other (Comment) Performed by: Jen Li RN Comments: r thigh Scanned Package: [id number] oxyCODONE (ROXICODONE) tablet 5 mg [[id number]] Ordering Provider: Spike Tidwell MD Status: Dispensed Ordered On: 05/15/241912 Start: 05/15/241912 Ordered Dose (Remaining/Total): 5 mg (--/--) Route: oral Frequency: Every 4 hours PRN Ordered Rate/Order Duration: -- / -- Timestamps Action Dose Route Other Information 05/18/24 0551 Given 5 mg oral Performed by: Fe Bhatti RN Scanned Package: 27009-937-83 HYDROmorphone (DILAUDID) injection 0.2 mg [[id number]] Ordering Provider: Spike Tidwell MD Status: Completed (Past End Date/Time) Ordered On: 05/16/24 0057 Starts/Ends: 05/16/24 0130 - 05/16/24 0102 Ordered Dose (Remaining/Total): 0.2 mg (0/1) Route: intravenous Frequency: Once Ordered Rate/Order Duration: -- / 2 Minutes Timestamps Action Dose / Duration Route Other Information 05/16/24 0100 Given 0.2 mg 2 Minutes intravenous Performed by: Cuca Thakur RN Scanned Package: [id number] sodium zirconium cyclosilicate (LOKELMA) packet 5 g [[id number]] Ordering Provider: Spike Tidwell MD Status: Completed (Past End Date/Time) Ordered On: 05/16/24 0358 Starts/Ends: 05/16/24 0430 - 05/16/24 0731 Ordered Dose (Remaining/Total): 5 g (0/1) Route: oral Frequency: Once Ordered Rate/Order Duration: -- / -- Admin Instructions: Adjust medication timing to ensure other oral medications are administered at least 2 hours before or 2 hours after sodium zirconium cyclosilicate. Empty packet(s) into a glass with 3 tablespoons (45 mL) of water. Stir and administer immediately. Repeat until no powder remainsin glass. Timestamps Action Dose Route Other Information 05/16/24 0731 Given 5 g oral Performed by: Juanita Weems RN Scanned Package: [id number] HYDROmorphone (DILAUDID) injection 0.2 mg [[id number]] Ordering Provider: Amador Nj MD Status: Completed (Past End Date/Time) Ordered On: 05/16/24843 Starts/Ends: 05/16/24 0915 - 05/16/24 0910 Ordered Dose (Remaining/Total): 0.2 mg (0/1) Route: intravenous Frequency: Once Ordered Rate/Order Duration: -- / 2 Minutes Timestamps Action Dose / Duration Route Other Information 05/16/24 0908 Given 0.2 mg 2 Minutes intravenous Performed by: Juanita Weems RN Scanned Package: [id number] acetaminophen (TYLENOL) tablet 1,000 mg [[id number]] Ordering Provider: Falguni Galvez NP Status: Dispensed Ordered On: 05/16/24843 Start: 05/16/24 1200 Ordered Dose (Remaining/Total): 1,000 mg (--/--) Route: oral Frequency: Every 6 hours scheduled Ordered Rate/Order Duration: -- / -- Timestamps Action Dose Route Other Information 05/18/24 0552 Given 1,000 mg oral Performed by: Fe Bhatti RN Scanned Package: [id number], 7788-8653-63 methocarbamoL (ROBAXIN) tablet 500 mg [[id number]] Ordering Provider: aFlguni Galvez NP Status: Dispensed Ordered On: 05/16/24 0844 Start: 05/16/24 0915 Ordered Dose (Remaining/Total): 500 mg (--/--) Route: oral Frequency: 3 times daily Ordered Rate/Order Duration: -- / -- Timestamps Action Dose Route Other Information 05/17/24 2100 Given 500 mg oral Performed by: Fe Bhatti RN Scanned Package: [id number] ketorolac (TORADOL) 15 mg/mL injection 15 mg [[id number]] Ordering Provider: Falguni Galvez NP Status: Completed (Past End Date/Time) Ordered On: 05/16/24 1450 Starts/Ends: 05/16/24 1600 - 05/17/24 0853 Ordered Dose (Remaining/Total): 15 mg (0/3) Route: intravenous Frequency: Every 8 hours Ordered Rate/Order Duration: -- / -- Admin Instructions: For Adult IV push, administer over 15 seconds Line Med Link Info Comment Peripheral IV 05/16/24 22 G Right Hand 05/16/24 1517 by Juanita Weems RN -- Timestamps Action Dose Route Other Information 05/17/24 0853 Given 15 mg intravenous Performed by: Jen Li RN Scanned Package: 43723-453-58 sodium chloride 0.9% bolus 500 mL [[id number]] Ordering Provider: Spike Tidwell MD Status: Completed (Past End Date/Time) Ordered On: 05/17/24 0046 Starts/Ends: 05/17/24 0130 - 05/17/24 0453 Ordered Dose (Remaining/Total): 500 mL (0/1) Route: intravenous Frequency: Once Ordered Rate/Order Duration: 125 mL/hr / 4 Hours Timestamps Action Dose / Rate / Duration Route Other Information 05/17/24 0053 New Bag 500 mL 125 mL/hr 4 Hours intravenous Performed by: Nataliya Saxena RN Scanned Package: [id number] OLANZapine (ZyPREXA) 5 mg in sterile water 1 mL (5 mg/mL) syringe [[id number]] Ordering Provider: Spike Tidwell MD Status: Completed (Past End Date/Time) Ordered On: 05/17/24 0419 Starts/Ends: 05/17/24 0500 - 05/17/24 0425 Ordered Dose (Remaining/Total): 5 mg (0/1) Route: intravenous Frequency: Once Ordered Rate/Order Duration: -- / 1 Minutes Admin Instructions: Reconstitute 10 mg vial with 2.1 mL SWFI. Resulting solution is ~5 mg/mL. Useimmediately (within 1 hour) following reconstitution. Timestamps Action Dose / Duration Route Other Information 05/17/24 0424 Given 5 mg 1 Minutes intravenous Performed by: Nataliya Saxena RN Scanned Package: [id number], [id number] OLANZapine (ZyPREXA) 2.5 mg in sterile water 0.5 mL (5 mg/mL) syringe [[id number]] Ordering Provider: Spike Tidwell MD Status: Completed (Past End Date/Time) Ordered On: 05/17/24 0549 Starts/Ends: 05/17/24 0630 - 05/17/24 0557 Ordered Dose (Remaining/Total): 2.5 mg (0/1) Route: intravenous Frequency: Once Ordered Rate/Order Duration: -- / 1 Minutes Admin Instructions: Reconstitute 10 mg vial with 2.1 mL SWFI. Resulting solution is ~5 mg/mL. Useimmediately (within 1 hour) following reconstitution. Timestamps Action Dose / Duration Route Other Information 05/17/24 0556 Given 2.5 mg 1 Minutes intravenous Performed by: Nataliya Saxena RN Scanned Package: [id number], 84026-796-63, 9445-6603-05, 7232-8398-57, 6802-6218-53 heparin 5,000 unit/mL injection 5,000 Units [[id number]] Ordering Provider: Falguni Galvez NP Status: Dispensed Ordered On: 05/17/24 1023 Start: 05/17/24 2100 Ordered Dose (Remaining/Total): 5,000 Units (--/--) Route: subcutaneous Frequency: Every 8 hours scheduled Ordered Rate/Order Duration: -- / -- Timestamps Action Dose Route / Site Other Information 05/18/24 0552 Given 5,000 Units subcutaneous Left Upper Arm Performed by: Fe Bhatti RN Scanned Package: 14990-412-45 cephalexin (KEFLEX) capsule 250 mg [[id number]] Ordering Provider: Falguni Galvez NP Status: Dispensed Ordered On: 05/17/24 1025 Starts/Ends: 05/17/24 1400 - 05/22/24 1559 Ordered Dose (Remaining/Total): 250 mg () Route: oral Frequency: 3 times daily Ordered Rate/Order Duration: -- / -- Timestamps Action Dose Route Other Information 05/17/242099 Given 250 mg oral Performed by: Fe Bhatti RN Scanned Package: [id number] sodium chloride 0.9% flush 0.5-20 mL [[id number]] Ordering Provider: Spike Tidwell MD Status: Verified Ordered On: 05/17/242116 Start: 05/18/24 0000 Ordered Dose (Remaining/Total): 0.5-20 mL (--/--) Route: intra-catheter Frequency: Every 8 hours scheduled (alternate) Ordered Rate/Order Duration: -- / -- Admin Instructions: Flush volume based on line type and size. (No admins scheduled or recorded for this medication) sodium chloride 0.9% flush 0.5-20 mL [[id number]] Ordering Provider: Spike Tidwell MD Status: Verified Ordered On: 05/17/242116 Start: 05/17/242116 Ordered Dose (Remaining/Total): 0.5-20 mL (--/--) Route: intra-catheter Frequency: As needed Ordered Rate/Order Duration: -- / -- Admin Instructions: Flush volume based on line type and size. Flush before and after each use. (No admins scheduled or recorded for this medication) Carrier Fluids for Secondary Infusion - 0.9% Sodium Chloride [[id number]] Ordering Provider: Spike Tidwell MD Status: Verified Ordered On: 05/17/242116 Start: 05/17/242116 Ordered Dose (Remaining/Total): 30 mL (--/--) Route: intravenous Frequency: As needed Ordered Rate/Order Duration: -- / -- Admin Instructions: 0-250 ml/hr to flush line after IV infusions when no maintenance IV ordered. Infuse 30mL at the same rate as the secondary infusion. Run as primary IV, not intended for KVO. (No admins scheduled or recorded for this medication) HYDROmorphone (DILAUDID) injection 0.2 mg [[id number]] Ordering Provider: Spike Tidwell MD Status: Completed (Past End Date/Time) Ordered On: 05/17/242116 Starts/Ends: 05/17/242199 - 05/17/242143 Ordered Dose (Remaining/Total): 0.2 mg () Route: intravenous Frequency: Once Ordered Rate/Order Duration: -- / 2 Minutes Timestamps Action Dose / Duration Route Other Information 05/17/242141 Given 0.2 mg 2 Minutes intravenous Performed by: Marjan Pritchett RN Scanned Package: [id number] bisacodyL (DULCOLAX) suppository 10 mg [[id number]] Ordering Provider: Falguni Galvez NP Status: Verified Ordered On: 05/18/24653 Starts/Ends: 05/18/24729 - 05/19/24729 Ordered Dose (Remaining/Total): 10 mg (06/08) Route: rectal Frequency: Once Ordered Rate/Order Duration: -- / -- (No admins scheduled or recorded for this medication) polyethylene glycol (MIRALAX) packet 17 g [[id number]] Ordering Provider: Falguni Galvez NP Status: Verified Ordered On: 05/18/24653 Start: 05/18/24 09 Ordered Dose (Remaining/Total): 17 g (--/--) Route: oral Frequency: Daily Ordered Rate/Order Duration: -- / -- (No admins scheduled or recorded for this medication) aspirin enteric coated tablet 81 mg [[id number]] Ordering Provider: Falguni Galvez NP Status: Verified Ordered On: 05/18/24 0750 Start: 05/18/24 0900 Ordered Dose (Remaining/Total): 81 mg (--/--) Route: oral Frequency: Daily Ordered Rate/Order Duration: -- / -- Admin Instructions: Do not crush, chew, cut, dissolve, open or otherwise manipulate tablet/capsule. (No admins scheduled or recorded for this medication) , OT Eval and Treat Last 72 Hours OT Evaluation Row Name 05/16/24 1600 05/15/24 1302 Chart Reviewed -- Yes -CP Session Type Treatment -KS Evaluation -CP OT Received On 05/16/24 -KS 05/15/24 -CP Safe Environment Arm band checked;Patient found in supine -KS Arm band checked;Patient found in supine;Gait belt utilized for all out of bed mobility soft wrist restraints donned -CP Subjective Agreeable to Therapy -KS Agreeable to Therapy -CP Subjective Comment I've done enough today. -KS Let's go. I'm hurting. -CP Family/Caregiver Present No -KS Yes granddaughter -CP Occupational Therapy-Patient Goal -- Pt did not state a goal this date. -CP Precautions Fall risk -KS Fall risk -CP Weight Bearing Restrictions Yes -KS Yes -CP RLE Weight Bearing WBAT -KS WBAT -CP Precaution Handout Issued -- No -CP Precaution Comments -- Verbally reviewed weight bearing restrictions and pt somewhat verbalized understanding. -CP Type of Home -- Retirement Facility -CP Home Layout -- One level -CP Home Access -- Level entry -CP Bathroom Shower/Tub -- Walk-in shower with threshold -CP Bathroom Toilet -- Standard -CP Bathroom Equipment -- Grab bars in shower/tub;Shower chair -CP Home Mobility Equipment-Available -- None -CP Home Mobility Equipment-Currently Using -- None -CP Home ADL Equipment-Available -- None -CP Home ADL Equipment-Currently Using -- None -CP Level of [place] -- Independent with ADLs;Independent functional transfers;Independent with ambulation;Needs assistance with homemaking -CP Lives With -- Alone -CP Receives Help From -- Facility staff 29/12 assist available -CP Driving -- No -CP Mode of Transportation -- Driven by others -CP ADL Assistance -- Independent -CP Instrumental ADL (IADL) Assistance -- Needs assistance -CP Vocational/Occupation -- Retired -CP Leisure -- Hobbies-yes (Comment) watch bands -CP Fall within the last 6 months -- Yes -CP Fall within the last 6 months comment -- 1 fall d/t potential tripping -CP ADLS (WDL) -- X -CP Grooming: Where assessed -- Chair -CP Grooming: Level of assistance -- Moderate Assist setup task, total balance; washing face -CP Grooming: Assistance with -- Balance -CP LE Dressing: Where assessed -- Supine, bed -CP LE Dressing: Level of assistance -- Dependent total task, total balance -CP LE Dressing: Assistance with -- Don/doff R sock;Don/doff L sock;Balance;Safety -CP Toilet Transfer From -- Bed -CP Toilet Transfer Type -- To -CP Toilet Transfer to -- -- sim to arm chair -CP Toilet Transfer Technique -- Stand and Step -CP Toilet Transfer: Equipment -- Hand hold -CP Toilet Transfers -- Maximal assistance x2 -CP Toilet Transfers Comments -- decreased force production, safety, balance -CP Pain Assessment -- 0-10 -CP Pain Score -- 10 - Worst possible pain -CP Pain Type -- Acute pain -CP Pain Location -- Buttocks -CP Pain Interventions -- RN Notified -CP Current Vision -- Does not wear glasses -CP Cognition Comments -- Pt cooperative with impulsivity to get OOB and off of bottom d/t pain. -CP Overall Cognitive Status -- Impaired -CP Arousal/Alertness -- Appropriate responses to stimuli;Alert -CP Attention Span -- Attends with cues to redirect;Difficulty attending to directions;Difficulty dividing attention;Distractability -CP Memory -- Decreased short term memory;Decreased recall of recent events;Decreased recall of precautions;Decreased recall of biographical information -CP Current communication -- Appears Intact -CP Orientation -- Oriented to person -CP Following Commands -- Follows one step commands with repetition -CP Safety Judgment -- Decreased awareness of need for safety -CP Awareness of Errors -- Assistance required to identify errors made;Assistance required to correct errors made;Decreased awareness of errors -CP Insight -- Decreased awareness of deficits -CP Problem Solving -- Assistance required to generate solutions;Assistance required to identify errorsmade;Assistance required to implement solutions -CP Compliance/Behavior -- Easy to engage -CP Perseveration -- Not present -CP Cognitive Tests -- No NT d/t pt mental status -CP Light Touch -- WFL -CP Numbness/Tingling -- No -CP Hand Preference -- Right -CP Balance Tests -- Yes -CP Sitting Balance -- 1 -CP Arises -- 0 -CP Attempts to Arise -- 0 -CP Immediate Standing Balance (First 5 Seconds) -- 0 -CP Standing Balance -- 0 -CP Nudged -- 0 -CP Eyes Closed -- 0 -CP Turned 360 Degrees: Steadiness -- 0 -CP Turned 360 Degrees: Continuity of Steps -- 0 -CP Sitting Down -- 0 -CP Balance Score -- 1 -CP Balance -- Yes -CP Static Sitting-Balance Support -- Bilateral upper extremity supported;Feet supported -CP Static Sitting-Sitting Surface -- Bed -CP Static Sitting-Level of Assistance -- Close supervision -CP Static Sitting-Comment/# of Minutes -- safety, balance, impulsive -CP Static Standing-Balance Support -- Bilateral upper extremity supported on therapist -CP Static Standing-Standing Surface -- Floor -CP Static Standing-Level of Assistance -- Maximum assistance x2 -CP Static Standing-Comment/# of Minutes -- decreased force production, safety, balance -CP Bed Mobility -- Yes -CP Bed Mobility From 1 -- Supine -CP Bed Mobility Type 1 -- To and from -CP Bed Mobility to 1 -- Edge of bed -CP Level of Assistance 1 -- Maximum Assist x2 -CP Bed Mobility Comments 1 -- trunk elevation, moving LEs/hips into/OOB -CP Transfer -- Yes -CP Transfer From 1 -- Sit -CP Transfer Type 1 -- To and from -CP Transfer to 1 -- Stand -CP Technique 1 -- Sit to stand;Stand to sit -CP Transfer Device 1 -- Hand held assist -CP Transfer Level of Assistance 1 -- Maximum Assist x2 -CP Trials/Comments 1 -- decreased force production, safety, balance -CP Transfer From 2 -- Bed -CP Transfer Type 2 -- To and from -CP Transfer to 2 -- Chair with arms -CP Technique 2 -- Stand and step -CP Transfer Device 2 -- Hand held assist -CP Transfer Level of Assistance 2 -- Maximum Assist x2 -CP Trials/Comments 2 -- decreased force production, safety, balance -CP RUE Assessment -- WFL -CP LUE Assessment -- WFL -CP Comments -- Pt was seen for initial OT eval this PM and presents as above. Pt donned socks dep and washed face mod a. Pt transferred from supine to/from sitting EOB max x2 for trunk elevation and moving LEs/hips into/OOB, sit to/from stand max x2 and stand step from bed to/from arm chair max x2 d/tdecreased force production, safety, balance. Pt unable to tolerate sitting up in recliner d/t pain in bottom. Pt is performing below her functional baseline and would continue to benefit from skilledacute OT while inpatient to maximize independence and safety with functional transfers and participation in ADLs/IADLs. OT to continue to follow acutely. -CP Putting on and taking off regular lower body clothing -- 1 -CP Bathing -- 2 -CP Toileting -- 1 -CP Putting on and taking off upper body clothing -- 2 -CP Personal Grooming -- 2 -CP Eating Meals -- 3 -CP Total Score (range 6-24) -- 11 -CP Score Interpretation -- 29.04 -CP Safe Environment End of Therapy Session -- Patient left supine in bed;Bed alarm in place and activated;RN notified;Call light within reach;Overbed table within reach soft wrist restraints donned -CP Problem List -- Debility;Decreased mobility;Decreased safe judgment during ADL;Decreased cognition;Decreased endurance;Decreased balance;Decreased functional mobility;Decreased ADL independence;Decreased IADL independence;Pain;Decreased upper extremity strength Simultaneous filing. User may not have seen previous data. -CM (r) CP (t) Barriers to Discharge -- Current Mobility Status;Current ADL Status;Cognition;Decreased safety awareness -CP Barrier Comments -- fall risk -CP Plan -- Plan of care initiated;If this is the last note, consider this the discharge summary -CP OT Recommendation -- Inpatient Rehab Facility -CP Patient at high risk for -- Falls;Readmission;Injury due to decreased ability to care for self;Injury due to reduced functional status;Injury due to impaired cognition;Injury due to balance deficits;Injury at home as patient has not returned to prior level of function -CP Recommend Inpatient Rehab/Acute Rehab due to -- Ability to actively participate in intensive therapy 3 hours/day, 5 days/week or 900 minutes per week;Highly motivated to participate in therapy;Not atbaseline due to impaired ability to complete ADLs;Impaired ability to complete functional mobility;Likely to return to the community at discharge with support system in place;Requires greater than 25% physical assistance with most mobility tasks;Requires greater than 25% physical assistance with most ADL tasks;Requires multiple therapy disciplines to address functional deficits;Patient and caregiver require specialized skilled training due to new level of function/diagnosis -CP OT Frequency during current admission -- 5-7x/wk -CP Treatment/Interventions during current admission -- ADL/IADL retraining;Balance Training;Bed mobility;Endurance training;Equipment eval/education;Functional activity;Functional mobility training;Functional transfer training;Parent/caregiver training and education;Strengthening;Therapeutic activity;Therapeutic exercise;Transfer training;Cognitive retraining -CP OT - Next Appointment -- 05/16/24 -CP OT - OK to Discharge -- No -CP OT Evaluation Complete -- Yes -CP OT Start Time -- 1302 -CP OT Stop Time -- 1333 -CP OT Time Calculation (min) -- 31 min -CP User Richard (r) = Recorded By, (t) = Taken By, (c) = Cosigned By Initials Name Effective Dates [place] Marjan Wen, OT 10/22/21 - CM Linsey Kaiser, OT 01/26/23 - CP Krystyna Ledesma PMelita 02/02/24 - OT Treatment Row Name 05/16/24 1600 Pain Assessment No/denies pain -KS Cognition Comments pt pleasant but adamantly refusing any OOB activity & remained cooperative with in bed activities -KS Orientation Oriented to person -KS Following Commands Follows one step commands with repetition -KS Compliance/Behavior Easy to engage;Reluctant to participate -KS Balance No -KS ADLS (WDL) X -KS Grooming: Where assessed Supine, bed -KS Grooming: Level of assistance Maximum Assist -KS Grooming: Assistance with -- set up task & sequencing -KS LE Dressing: Where assessed Supine, bed -KS LE Dressing: Level of assistance Dependent -KS Bed Mobility No -KS Transfer No -KS Toilet Transfers Not tested -KS Toilet Transfers Comments pt adamantly declined all OOB activity this session -KS ROM/STRENGTH Yes -KS Other Exercise AAROM performed x7 reps on BUE with pt actively engaged and counting, stated, Sevenis enough. -KS Comments RN reports pt has been escalated all day, pulled at lines, and has been up to BSC several times today. RN reports pt is finally settled upon OT arrival. Pt pleasant during session. -KS Putting on and taking off regular lower body clothing 1 -KS Bathing 2 -KS Toileting 1 -KS Putting on and taking off upper body clothing 2 -KS Personal Grooming 2 -KS Eating Meals 3 -KS Total Score (range 6-24) 11 -KS Score Interpretation 29.04 -KS Safe Environment End of Therapy Session Patient left supine in bed;RN notified;Call light within reach;Overbed table within reach -KS Problem List Debility;Decreased cognition;Decreased endurance;Decreased balance;Decreased functional mobility;Decreased ADL independence;Decreased IADL independence -KS Barriers to Discharge Current Mobility Status;Current ADL Status;Cognition;Decreased safety awareness -KS Plan Alter current plan;If this is the last note, consider this the discharge summary -KS Plan Comments updated d/c rec per patient functional status & therapy participation -KS OT Recommendation Retirement Facility -KS Patient at high risk for Falls;Readmission;Injury due to decreased ability to care for self;Injury due to reduced functional status;Injury due to impaired cognition;Injury due to balance deficits;Injury at home as patient has not returned to prior level of function;Developing impaired skin integrity -KS Recommend SNF due to Risk of injury at home;Unable to safely care for self in the home;Skilled therapy needed to address care for self in the home;Skilled therapy needed to address functional deficits;Skilled therapy needed for patient to return to prior level of independence -KS OT Frequency during current admission 3-5x/wk -KS Treatment/Interventions during current admission ADL/IADL retraining;Balance Training;Bed mobility;Compensatory technique education;Endurance training;Functional activity;Functional mobility training;Functional transfer training;Strengthening;Therapeutic exercise;Transfer training;Therapeutic activi ty -KS Progress during current admission Slow progress, cognitive deficits -KS OT - Next Appointment 05/18/24 -KS User Richard (r) = Recorded By, (t) = Taken By, (c) = Cosigned By Initials Name Effective Dates [place] Marjan Wen OT 10/22/21 - OT Notes 05/16/2024 5:34 PM Progress Notes signed by Behzad, Marjan, OT , PT Eval and Treat Last 72 Hours PT Evaluation Row Name 05/16/24 0855 Chart Reviewed Yes -MR Session Type Evaluation -MR Safe Environment Arm band checked;Gait belt utilized for all out of bed mobility -MR Subjective Agreeable to Therapy -MR Family/Caregiver Present No -MR Physical Therapy-Patient Goal None stated -MR Precautions Fall risk -MR Weight Bearing Restrictions Yes -MR RLE Weight Bearing WBAT -MR Precaution Handout Issued No -MR Type of Home Extended Care Facility -MR Home Layout One level -MR Home Access Level entry -MR Home Mobility Equipment-Available None -MR Home Mobility Equipment-Currently Using None -MR Level of [place] Independent functional transfers;Independent with ambulation;Needs assistancewith ADLs -MR Receives Help From Facility staff;Family -MR Driving No -MR Vocational/Occupation Retired -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 -MR Fall within the last 6 months Yes -MR Fall within the last 6 months comment 2 -MR Activity Tolerance Comments Jess: deferred -MR Pain Assessment Advanced Dementia -MR Breathing 1 -MR Negative Vocalization 2 -MR Facial Expression 2 -MR Body Language 1 -MR Consolability 1 -MR PAINAD Score 7 -MR Arousal/Alertness Alert;Appropriate responses to stimuli -MR Orientation Oriented to person Baseline per daughter -MR Following Commands Follows one step commands with increased time -MR Compliance/Behavior Easy to engage -MR Light Touch WFL B LE -MR Sensation Comments Small bruise over upper back, otherwise no wounds or edema -MR Static Sitting-Balance Support Bilateral upper extremity supported -MR Static Sitting-Sitting Surface Bed -MR Static Sitting-Level of Assistance Distant supervision -MR Static Standing-Balance Support Bilateral upper extremity supported -MR Static Standing-Standing Surface Floor -MR Static Standing-Level of Assistance Minimum assistance -MR Dynamic Standing-Balance Support Bilateral upper extremity supported -MR Dynamic Standing-Balance Lateral lean;Forward lean -MR Dynamic Standing-Standing Surface Floor -MR Dynamic Standing-Level of Assistance Minimum assistance -MR Dynamic Standing-Comments Weight shifting, marching in place -MR Bed Mobility From 1 Supine -MR Bed Mobility Type 1 To -MR Bed Mobility to 1 Edge of bed toward R -MR Level of Assistance 1 Moderate Assist -MR Bed Mobility Comments 1 HOB 45 -MR Transfer From 1 Sit -MR Transfer Type 1 To and from -MR Transfer to 1 Stand -MR Technique 1 Sit to stand;Stand to sit -MR Transfer Device 1 Wheeled walker -MR Transfer Level of Assistance 1 Moderate Assist -MR Transfer From 2 Bed -MR Transfer Type 2 To -MR Transfer to 2 Chair with arms -MR Technique 2 Stand and step;To right -MR Transfer Device 2 Wheeled walker -MR Transfer Level of Assistance 2 Minimum Assist -MR Ambulation No -MR Ambulation Comments 1 10MWT: steps to chair only due to pain -MR Stairs No -MR RLE Assessment X -MR RLE Comments Pain limited -MR LLE Assessment WFL -MR How much difficulty does the patient have: Turning over in bed 2 -MR How much difficulty does the patient currently have: Sitting down and standing up from a chair witharms? 2 -MR How much difficulty does the patient have: Moving from lying on back to sitting on the side of the bed? 2 -MR How much difficulty does the patient have: Moving to and from a bed to a chair including wheelchair? 3 -MR How much help does the patient currently need: Walk in hospital room? 3 -MR How much help from another person does the patient currently need: Climbing 3-5 steps with a railing? 1 -MR Total 6 Click Score (range 6-24) 13 -MR Score Interpretation 33.99 -MR Safe Environment End of Therapy Session Patient left in recliner;RN notified;Call light within reach;Chair alarm in place and activated -MR Prognosis Good -MR Problem List Reduced mobility;Debility;Decreased range of motion;Pain;Decreased safety awareness;Decreased cognition;Impaired judgement -MR Problem List Comments PT Diagnosis: Fall, R zone 1 sacral fx, R inf and sup pubic rami fxs, resultsin above listed activity deficits and impairments which prevent full participation in home and community mobility -MR PT Recommendation/Plan [facility] Return to facility with PT intervention -MR Patient at high risk for Falls;Readmission -MR PT Frequency during current admission 5-7x/wk -MR Treatment/Interventions during current admission Balance Training;Bed mobility;Functional activity;Functional transfer training;Gait training;Strengthening;Therapeutic activity;Therapeutic exercise;Transfer training -MR PT Evaluation Complete Yes -MR PT Start Time 854 -MR PT Stop Time 934 -MR PT Time Calculation (min) 40 min -MR User Richard (r) = Recorded By, (t) = Taken By, (c) = Cosigned By Initials Name Effective Dates Edie Acuna, PT 02/23/20 - PT TREATMENT (Last 168 Hours) PT Treatment Row Name 05/17/24 0978 PT Last Visit Session Type Treatment -MR Safe Environment Arm band checked;Gait belt not utilized, see comment -MR Subjective Agreeable to Therapy -MR Family/Caregiver Present No -MR Precautions Precautions Fall risk -MR Weight Bearing Restrictions Yes -MR RLE Weight Bearing WBAT -MR Precaution Handout Issued No -MR Activity Tolerance Activity Tolerance Comments Jess: unable -MR Pain Assessment Pain Assessment No/denies pain -MR Cognition Cognition Comments Extensive safety cues throughout session -MR Arousal/Alertness Alert;Appropriate responses to stimuli -MR Orientation Oriented to person -MR Following Commands Follows one step commands with repetition and extensive cues for safety -MR Compliance/Behavior Anxious restless irritability -MR Static Standing Balance Static Standing-Balance Support Bilateral upper extremity supported -MR Static Standing-Standing Surface Floor -MR Static Standing-Level of Assistance Minimum assistance -MR Dynamic Standing Balance Dynamic Standing-Balance Support Bilateral upper extremity supported -MR Dynamic Standing-Balance Lateral lean;Forward lean -MR Dynamic Standing-Standing Surface Floor -MR Dynamic Standing-Level of Assistance Minimum assistance -MR Bed Mobility 1 Bed Mobility From 1 Supine -MR Bed Mobility Type 1 To -MR Bed Mobility to 1 Edge of bed -MR Level of Assistance 1 Minimum Assist -MR Bed Mobility Comments 1 HOB 45 -MR Transfer 1 Transfer From 1 Sit -MR Transfer Type 1 To and from -MR Transfer to 1 Stand -MR Technique 1 Sit to stand;Stand to sit -MR Transfer Device 1 Wheeled walker -MR Transfer Level of Assistance 1 Minimum Assist -MR Transfers 2 Transfer From 2 Bed -MR Transfer Type 2 To -MR Transfer to 2 Chair with arms -MR Technique 2 Stand and step;To left -MR Transfer Device 2 Wheeled walker -MR Transfer Level of Assistance 2 Minimum Assist -MR Ambulation Ambulation No Pt required extensive safety cues throughout session, gait deferred due to risk of fall -MR Stairs Stairs No -MR Basic Mobility - 6 Click How much difficulty does the patient have: Turning over in bed 3 -MR How much difficulty does the patient currently have: Sitting down and standing up from a chair witharms? 3 -MR How much difficulty does the patient have: Moving from lying on back to sitting on the side of the bed? 3 -MR How much difficulty does the patient have: Moving to and from a bed to a chair including wheelchair? 3 -MR How much help does the patient currently need: Walk in hospital room? 3 -MR How much help from another person does the patient currently need: Climbing 3-5 steps with a railing? 1 -MR Total 6 Click Score (range 6-24) 16 -MR Score Interpretation 38.32 -MR Safe Environment End of Therapy Session Safe Environment End of Therapy Session Patient left in recliner;RN notified;Chair alarm in place and activated;Call light within reach positional lap belt in place -MR Assessment Prognosis Good -MR Problem List Reduced mobility;Debility;Decreased range of motion;Pain;Decreased safety awareness;Decreased cognition;Impaired judgement -MR Plan Plan Continue with current plan;If this is the last note, consider this the discharge summary -MR Recommendation/Plan PT Recommendation/Plan [facility] Return to facility with PT intervention -MR Patient at high risk for Falls;Readmission;Injury due to impaired cognition -MR PT Frequency during current admission 5-7x/wk -MR Treatment/Interventions during current admission Balance Training;Bed mobility;Functional activity;Functional transfer training;Gait training;Strengthening;Therapeutic activity;Therapeutic exercise;Transfer training -MR Progress during current admission Progressing toward goals -MR PT Time Calculation PT Start Time 15 -MR PT Stop Time 40 -MR PT Time Calculation (min) 25 min -MR User Richard (r) = Recorded By, (t) = Taken By, (c) = Cosigned By Initials Name Effective Dates MR Edie Ramirez, PT 02/23/20 - PT Notes 05/16/2024 4:38 PM Progress Notes signed by Edie Ramirez, PT 05/17/2024 4:14 PM Progress Notes signed by Edie Ramirez, PT , Wound Info Only Active Wound Assessment Active Wound / Pressure injury / Lamb / Negative Pressure Wound / Incision None , Vitals Info Only Vital Signs 05/17 0700 05/18 0659 05/18 0700 05/18 900 Most Recent Temp (??C) 36.7 - 36.9 36.9 (98.4) 05/18 400 Pulse 73 - 98 85 05/18 400 Resp 14 - 30 18 05/18 400 SpO2 (%) 90 - 100 94 05/18 400 BP 113/75 - 178/77 149/74 05/18 400 MAP (mmHg) 95 - 115 , Oxygen Info Only Default Flowsheet Data (most recent) Endurance Tests No documentation. Default Flowsheet Data (Last 48 Hours) Oxygen Row Name 05/18/24 0600 05/18/24 0500 05/18/24 0400 05/18/24 0000 05/17/24 2000 Oxygen Therapy/Pulse Ox O2 Therapy Supplemental oxygen Supplemental oxygen Supplemental oxygen Supplemental oxygen Supplemental oxygen O2 Del Method High flow nasal cannula High flow nasal cannula High flow nasal cannula High flow nasal cannula High flow nasal cannula O2 Flow Rate (L/min) 5 L/min 5 L/min 5 L/min 5 L/min 5 L/min SpO2 -- -- 94 % 96 % -- Patient Activity At rest At rest At rest At rest At rest Row Name 05/17/24 1515 05/17/24 1100 05/17/24 1010 05/17/24 1000 05/17/24 0940 Oxygen Therapy/Pulse Ox O2 Therapy -- -- Supplemental oxygen -- Supplemental oxygen O2 Del Method -- -- High flow nasal cannula -- High flow nasal cannula O2 Flow Rate (L/min) -- -- 5 L/min -- 5 L/min SpO2 93 % 93 % 90 % 96 % 100 % Row Name 05/17/24 0915 05/17/24 0900 05/17/24 0800 05/17/24 0700 05/17/24 0600 Oxygen Therapy/Pulse Ox O2 Therapy Supplemental oxygen -- Supplemental oxygen -- -- O2 Del Method High flow nasal cannula -- High flow nasal cannula -- -- O2 Flow Rate (L/min) 5 L/min -- 5 L/min -- -- SpO2 99 % 98 % 98 % 97 % 96 % Patient Activity -- -- At rest -- -- Row Name 05/17/24 0500 05/17/24 0400 05/17/24 0300 05/17/24 0200 05/17/24 0100 Oxygen Therapy/Pulse Ox SpO2 96 % 97 % 98 % 100 % 100 % Row Name 05/17/24 0000 05/16/24 2315 05/16/24 2314 05/16/24 2313 05/16/24 2312 Oxygen Therapy/Pulse Ox O2 Therapy Supplemental oxygen -- -- -- -- O2 Del Method High flow nasal cannula -- -- -- -- O2 Flow Rate (L/min) 5 L/min -- -- -- -- SpO2 99 % 98 % 97 % 97 % 98 % Patient Activity At rest -- -- -- -- Row Name 05/16/24 23105/16/24 23105/16/24230805/16/24230705/16/24 2307 Oxygen Therapy/Pulse Ox SpO2 98 % 98 % 96 % 96 % 97 % Row Name 05/16/24 2306 05/16/24 23005/16/24 23005/16/24 23005/16/24 230 Oxygen Therapy/Pulse Ox SpO2 97 % 97 % 96 % 97 % 97 % Row Name 05/16/24 23005/16/24 23005/16/24225805/16/24225705/16/24 225 Oxygen Therapy/Pulse Ox SpO2 97 % 96 % 97 % 97 % 97 % Row Name 05/16/24225505/16/24225405/16/24225305/16/24225205/16/24 2252 Oxygen Therapy/Pulse Ox SpO2 97 % 97 % 97 % 96 % 97 % Row Name 05/16/24225005/16/24224905/16/24224805/16/24224705/16/24 2247 Oxygen Therapy/Pulse Ox SpO2 97 % 94 % 96 % 96 % 97 % Row Name 05/16/24224505/16/24224405/16/24224305/16/24224205/16/24 2242 Oxygen Therapy/Pulse Ox SpO2 97 % 97 % 97 % 97 % 97 % Row Name 05/16/24224005/16/24223905/16/24223805/16/24223705/16/242236 Oxygen Therapy/Pulse Ox SpO2 98 % 98 % 98 % 97 % 96 % Row Name 05/16/24223505/16/24223405/16/24223305/16/24223205/16/24 223 Oxygen Therapy/Pulse Ox SpO2 97 % 98 % 98 % 99 % 99 % Row Name 05/16/24223005/16/24222905/16/24222805/16/24222705/16/24 2227 Oxygen Therapy/Pulse Ox SpO2 98 % 99 % 98 % 99 % 98 % Row Name 05/16/24 2226 05/16/24 2225 05/16/24 2224 05/16/24 2223 05/16/24 2222 Oxygen Therapy/Pulse Ox SpO2 99 % 100 % 100 % 100 % 100 % Row Name 05/16/24 2221 05/16/24 2220 05/16/24 2219 05/16/24 2218 05/16/24 2217 Oxygen Therapy/Pulse Ox SpO2 100 % 100 % 100 % 100 % 100 % Row Name 05/16/24 2216 05/16/24 2215 05/16/24 2214 05/16/24 2213 05/16/24 2212 Oxygen Therapy/Pulse Ox SpO2 100 % 100 % 100 % 100 % 100 % Row Name 05/16/24 22105/16/240 05/16/24220805/16/248 05/16/24 2207 Oxygen Therapy/Pulse Ox SpO2 100 % 100 % 100 % 100 % 100 % Row Name 05/16/24 2206 05/16/245 05/16/244 05/16/243 05/16/24 2202 Oxygen Therapy/Pulse Ox SpO2 100 % 100 % 100 % 100 % 100 % Row Name 05/16/24220005/16/240 05/16/24215805/16/248 05/16/24 2157 Oxygen Therapy/Pulse Ox SpO2 100 % 100 % 100 % 100 % 100 % Row Name 05/16/246 05/16/24215405/16/244 05/16/243 05/16/24 2152 Oxygen Therapy/Pulse Ox SpO2 100 % 100 % 100 % 100 % 100 % Row Name 05/16/24 21505/16/24 2150 05/16/249 05/16/248 05/16/24 2147 Oxygen Therapy/Pulse Ox SpO2 100 % 100 % 100 % 100 % 100 % Row Name 05/16/246 05/16/245 05/16/24 2144 05/16/243 05/16/24 2142 Oxygen Therapy/Pulse Ox SpO2 100 % 99 % 99 % 98 % 98 % Row Name 12/09/214005/16/24213905/16/24213805/16/24213705/16/24 213 Oxygen Therapy/Pulse Ox SpO2 99 % 100 % 100 % 100 % 100 % Row Name 05/16/246 05/16/24213405/16/24213305/16/24213205/16/24 213 Oxygen Therapy/Pulse Ox SpO2 100 % 100 % 100 % 100 % 100 % Row Name 05/16/24213005/16/24212905/16/24212805/16/24212705/16/242126 Oxygen Therapy/Pulse Ox SpO2 100 % 100 % 100 % 100 % 100 % Row Name 05/16/24212505/16/24212405/16/24212305/16/24212205/16/242121 Oxygen Therapy/Pulse Ox SpO2 100 % 100 % 100 % 100 % 99 % Row Name 05/16/24212005/16/24211905/16/24211805/16/24211705/16/242116 Oxygen Therapy/Pulse Ox SpO2 99 % 100 % 99 % 99 % 99 % Row Name 05/16/24211505/16/24211405/16/24211305/16/24211205/16/242111 Oxygen Therapy/Pulse Ox SpO2 99 % 99 % 98 % 98 % 98 % Row Name 05/16/24211005/16/24210905/16/24210805/16/24210705/16/242106 Oxygen Therapy/Pulse Ox SpO2 98 % 97 % 99 % 99 % 99 % Row Name 05/16/24210505/16/24210405/16/24210305/16/24210205/16/24 210 Oxygen Therapy/Pulse Ox SpO2 99 % 99 % 99 % 99 % 99 % Row Name 05/16/24210005/16/24 2100 05/16/24 1900 05/16/24 1800 05/16/24 1700 Oxygen Therapy/Pulse Ox SpO2 98 % 99 % 98 % 98 % 96 % Row Name 05/16/24 1600 05/16/24 1500 05/16/24 1435 05/16/24 1400 05/16/24 1300 Oxygen Therapy/Pulse Ox SpO2 99 % 94 % 95 % 97 % 97 % Row Name 05/16/24 1200 05/16/24 1100 05/16/24 1000 05/16/24 0935 Oxygen Therapy/Pulse Ox O2 Therapy -- -- -- Supplemental oxygen O2 Del Method -- -- -- High flow nasal cannula O2 Flow Rate (L/min) -- -- -- 4 L/min SpO2 97 % 95 % 86 % 96 % ESS TANK TENDER * Assessment & Plan Note - Falguni Galvez NP - 05/18/2024 7:49 AM PROCESS TANK TENDER Associated Problem(s): Urinary retention 05/16 removed Briscoe- void check 05/17 noted agitation per nursing, and frequent incontinence, Bladder Scan 650 mL, Briscoe catheter placed ESS TANK TENDER ESS TANK TENDER * Plan of Care - Fe Bhatti RN - 05/18/2024 3:52 AM CST Goals: Clinical Goals for the Shift: VS stable, pain management, promote rest Summary: VS stable overnight, continuous cardiac monitoring not possible overnight due to pt restlessness and removing cardiac leads due to confusion. Pt and family expressed concerns of poor pain control overnight, MD at bedside for discussion and PRN and scheduled meds administered. Rest promotedby [facility] care. Pt resting in bed w wheels locked, call light within reach, bed in lowest position, and bed alarm on. Problem: Restraint for Interference with Medical Safety Goal: Knowledge of restraints will improve Outcome: Progressing Goal: Remains free from injury from restraints Outcome: Progressing Goal: Free from restraint(s) Outcome: Progressing Problem: Skin Integrity Impairment Risk Goal: Mobility will improve Outcome: Progressing Goal: Understanding of ways to prevent future skin breakdown will improve Outcome: Progressing Goal: Nutritional status will improve Outcome: Progressing Goal: Risk for impaired skin integrity will decrease Outcome: Progressing Problem: Activity Goal: Risk for activity intolerance and fatigue will decrease Outcome: Progressing Goal: Ability to tolerate increased activity will improve Outcome: Progressing Goal: Ability to avoid complications of mobility impairment will improve Outcome: Progressing Problem: Discharge Planning Goal: Understanding discharge needs will improve Outcome: Progressing Problem: Tissue Perfusion Goal: Adequacy of tissue perfusion will improve Outcome: Progressing Problem: Sensory Goal: Ability to identify factors that increase pain levels will improve while working to decrease the patient's pain levels Outcome: Progressing ESS TANK TENDER * Plan of Care - Jannette Reeves RN - 05/17/2024 11:16 AM CST 05/16/24 [facility] Discharge Planning Support System Children (daughter Dandy Cuellar [phone]) Anticipated discharge level of care halfway (rn long term care care) Does the patient need discharge transport arranged? Yes Type of Transportation Ambulance/EMS Post Acute Care Plan Home Care Services N/A OP Services N/A DME N/A Post Acute Care Facility Resume Post Acute Facility Name and Contact [facility] [phone] TAMMY Progression of Care Update Per Medical Chart/Rounds/IDR: 83 y.o. year old female PMH of Alzheimer's Dementia, diabetes mellitus type 2, hypertension, dementia, presenting as an unwitnessed Ground level fall at [facility] sustaining right pubic ramus fracture ADD: 05/18 Discharge Barriers: pending thuy rogel at bedside 05/17 Ref[facility] [phone] fax # [phone] - patient is a fdc resident at this SNF. CM spoke to Abida WHITE at facility, patient able to return upon discharge. Education Needs Identified (plan):TBD F/U Appointments: to be scheduled per primary team Patient's Identified Problem/Goal Problem:?Ensure acute medical needs are met and that patient has a safe discharge plan. Goal:?Secure a discharge plan that patient/family are agreeable with?and ensure patient has continuum of care. Patient and/or family are agreeable with plan. environmental manager will continue to follow and assist with discharge planning as needed. If any further discharge needs arise, please contact the covering welfare case worker. ESS TANK TENDER ESS TANK TENDER * Assessment & Plan Note - Falguni Galvez NP - 05/17/2024 10:26 AM PROCESS TANK TENDER Associated Problem(s): UTI (urinary tract infection) 05/14 UA sent on admission, refluxed to CX 05/17 changed Cefepime to Keflex PO x 5 days (05/17-05/22) CX: 05/14 UCX: Klebsiella Pneumoniae ABX: Cefepime (05/14-05/17) Keflex (05/17-05/22) ESS TANK TENDER ESS TANK TENDER ESS TANK TENDER * Plan of Care - Jen Li RN - 05/17/2024 10:13 AM CST Goals: Clinical Goals for the Shift: vss, q2 turns, i/os, pain Summary: continue to monitor vs, turns, I/os, pain Problem: Restraint for Interference with Medical Safety Goal: Knowledge of restraints will improve Outcome: Progressing Goal: Remains free from injury from restraints Outcome: Progressing Goal: Free from restraint(s) Outcome: Progressing Problem: Activity Goal: Risk for activity intolerance and fatigue will decrease Outcome: Progressing Goal: Ability to tolerate increased activity will improve Outcome: Progressing Goal: Ability to avoid complications of mobility impairment will improve Outcome: Progressing Problem: Discharge Planning Goal: Understanding discharge needs will improve Outcome: Progressing Problem: Fluid Volume Goal: Ability to maintain a balanced intake and output will improve Outcome: Progressing Goal: Will show no signs and symptoms of excessive bleeding Outcome: Progressing Problem: General Patient Education Goal: Knowledge of disease process, condition or treatment will be improved Outcome: Progressing Problem: Nutritional Goal: Nutrient intake appropriate for improving, restoring or maintaining nutritional needs Outcome: Progressing Goal: Implement dietary regimen as ordered Outcome: Progressing Problem: Tissue Perfusion Goal: Adequacy of tissue perfusion will improve Outcome: Progressing Problem: Lack of Knowledge Goal: Ability to develop a pain control plan will improve Outcome: Progressing Problem: Medication Goal: Satisfaction with pain management medication regimen will improve Outcome: Progressing Problem: Sensory Goal: Ability to identify factors that increase pain levels will improve while working to decrease the patient's pain levels Outcome: Progressing Problem: Coping Goal: Ability to cope will improve Outcome: Progressing Problem: Health Behavior Goal: Identification of resources available to assist in meeting health care needs will improve Outcome: Progressing Problem: Skin Integrity Impairment Risk Goal: Mobility will improve Outcome: Progressing Goal: Understanding of ways to prevent future skin breakdown will improve Outcome: Progressing Goal: Nutritional status will improve Outcome: Progressing Goal: Risk for impaired skin integrity will decrease Outcome: Progressing Problem: Fall Risk Goal: Ability to state ways to decrease the risk of falls will improve Outcome: Progressing Goal: Will remain free from falls Outcome: Progressing Goal: Will remain free from injury from falls Outcome: Progressing ESS TANK TENDER * Initial Assessments - Jannette Reeves RN - 05/16/2024 10:24 AM CST CM Initial Assessment Interview Note Information Obtained From: Adult child Name: daughter Dandy Cuellar [phone] (patient A&O x 1 at baseline) (05/16/24 1016) Admission Source: transfer from OSH Impression: 83 y.o. year old female PMH of Alzheimer's Dementia, diabetes mellitus type 2, hypertension, dementia, presenting as an unwitnessed Ground level fall at fpc sustaining right pubic ramus fracture Plan Includes: Discharge when medically stable. Anticipate return to SNF when medically stable. Case management will continue to follow for medical updates and discharge planning. Primary Source of Transportation: Does the patient need discharge transport arranged?: Yes (05/16/24 1016) Health Insurance Coverage: Medicare, IDPA Prescription Coverage: yes Pharmacy: [facility] [place], [place] - [facility] [address] [facility] [address] [facility] [id number] [facility] [place], [place] - [address] [place] [address] [address] [facility] [address] Primary Care Provider: Cedric Nguyen MD Prior to Admission: Functional Status: Moderate assist with ADLs Primary Caregiver: Facility staff Support System: Children (geraldo Cuellar [phone]) Home Care Services: No Outpatient Services: No Durable Medical Equipment: None Living Arrangements: halfway Type of Residence: halfway Does patient wish to return to care facility?: Yes, wishes to return Facility contact name and number:: [facility] [phone] (05/16/24 1016) Potential discharge needs include: Patient is a fdc resident at [phone] - per geraldo Sanchez will return to facility upon discharge. Electronic referral sent to [facility] for return to SNF on 05/16. OP Services: No Dialysis: No Behavioral Health Services: Behavioral Health Services: No (05/16/24 1016) Anticipated Level of Care: Anticipated discharge level of care: halfway (rn long term care care) Pt/Family agrees with Anticipated Level of Care: Yes (05/16/24 1016) Patient expects to be Discharged to: halfway (fdc care), (05/16/24 1016) Additional Information: Demographics verified with facesheet. Explained role of CM. Patient residesat [place] [phone] - has been at this facility for the past 2.5 years. Patient's Identified Problem/Goal Problem: Ensure acute medical needs are met and that patient has a safe discharge plan. Goal: Secure a discharge plan that patient/family are agreeable with and ensure patient has continuum of care. Case management will follow for discharge planning and send referrals as needed. Goals include: To assure continuity of care, To maximize coping skills, To assure patient is in a safe environment and To assure access to community resources. Plan includes: 1. Collaboration with Patient, Provider, Direct Care Nurse, Sales Representative Health Insurance, and other members of theHealth Care Team to assure needed interventions completed. 2. Return patient to optimal level of self-care post discharge. 3. Sterile Processing Manager will follow for Discharge Planning - interventions as needed 4. Anticipated level of care at discharge 5. Planned Discharge Disposition Jannette Reeves RN ESS TANK TENDER * [facility]IN Note - Jannette Reeves RN - 05/16/2024 10:14 AM CST Images from the original note were not included. Patient Information: Head to Toe Assess Default Flowsheet Data (most recent) Complex Assessment - 05/16/24 0908 Sedation Scales Pasero Opioid-Induced Sedation Scale (POSS) 1 , Meds and Admin Active Only All Meds/Most Recent Administrations morphine injection 2 mg [[id number]] Ordering Provider: Alexis Sawyer MD Status: Completed (Past End Date/Time) Ordered On: 05/14/24619 Starts/Ends: 05/14/24620 - 05/14/24625 Ordered Dose (Remaining/Total): 2 mg (0/1) Route: intravenous Frequency: Once Ordered Rate/Order Duration: -- / 4 Minutes Line Med Link Info Comment Peripheral IV 05/14/24 20 G Anterior;Distal;Left Forearm 05/14/24621 by Sarina Chavira RN-- Timestamps Action Dose / Duration Route Other Information 05/14/24621 Given 2 mg 4 Minutes intravenous Performed by: Sarina Chavira RN Scanned Package: 7841-2946-63 haloperidol (HALDOL) injection 5 mg [[id number]] Ordering Provider: Alexis Sawyer MD Status: Completed (Past End Date/Time) Ordered On: 05/14/24630 Starts/Ends: 05/14/24631 - 05/14/24631 Ordered Dose (Remaining/Total): 5 mg (0/1) Route: intravenous Frequency: Once Ordered Rate/Order Duration: -- / -- Admin Instructions: If administered IV push, administer over 5 min for adults Line Med Link Info Comment Peripheral IV 05/14/24 22 G Left;Posterior Hand 05/14/24631 by Sarina Chavira RN -- Timestamps Action Dose Route Other Information 05/14/24631 Given 5 mg intravenous Performed by: Sarina Chavira RN Scanned Package: 47145-252-62 ketorolac (TORADOL) 15 mg/mL injection 15 mg [[id number]] Ordering Provider: Alexis Sawyer MD Status: Completed (Past End Date/Time) Ordered On: 05/14/24 0653 Starts/Ends: 05/14/24 0654 - 05/14/24715 Ordered Dose (Remaining/Total): 15 mg (0/1) Route: intravenous Frequency: Once Ordered Rate/Order Duration: -- / -- Admin Instructions: For Adult IV push, administer over 15 seconds Line Med Link Info Comment Peripheral IV 05/14/24 20 G Left Hand 05/14/24715 by Sarina Chavira RN -- Timestamps Action Dose Route Other Information 05/14/24715 Given 15 mg intravenous Performed by: Sarina Chavira RN Scanned Package: 20719-240-98 cefepime (MAXIPIME) 2,000 mg/20 mL in sterile water (premix) 2,000 mg [[id number]] Ordering Provider: Vikash Servin MD Status: Dispensed Ordered On: 05/14/24749 Start: 05/14/24750 Ordered Dose (Remaining/Total): 2,000 mg (--/--) Route: intravenous Frequency: Every 12 hours scheduled Ordered Rate/Order Duration: 240 mL/hr / 5 Minutes Line Med Link Info Comment Peripheral IV 05/14/24 22 G Right Hand 05/14/24800 by Sarina Chaivra RN -- Timestamps Action Dose / Rate / Duration Route Other Information 05/16/24 0828 New Bag 2,000 mg 240 mL/hr 5 Minutes intravenous Performed by: Juanita Weems RN Scanned Package: [address]-7 vancomycin 1500 mg/515 mL in sodium chloride 0.9% (premix) 1,500 mg [[id number]] Ordering Provider: Frandy Ferreira MD Status: Completed (Past End Date/Time) Ordered On: 05/14/24749 Starts/Ends: 05/14/24750 - 05/14/24 0956 Ordered Dose (Remaining/Total): 15 mg/kg (0/1) Route: intravenous Frequency: Once Ordered Rate/Order Duration: -- / 90 Minutes Line Med Link Info Comment Peripheral IV 05/14/24 20 G Left Hand 05/14/24801 by Sarina Chavira RN -- Timestamps Action Dose / Duration Route Other Information 05/14/24801 New Bag 1,500 mg 90 Minutes intravenous Performed by: Sarina Chavira RN Scanned Package: 9353-2942-37 haloperidol (HALDOL) injection 5 mg [[id number]] Ordering Provider: Frandy Ferreira MD Status: Completed (Past End Date/Time) Ordered On: 05/14/24953 Starts/Ends: 05/14/24954 - 05/14/24956 Ordered Dose (Remaining/Total): 5 mg (0/1) Route: intravenous Frequency: Once Ordered Rate/Order Duration: -- / -- Admin Instructions: If administered IV push, administer over 5 min for adults Line Med Link Info Comment Peripheral IV 05/14/24 22 G Right Hand 05/14/24956 by Denise Mendez RN -- Timestamps Action Dose Route Other Information 05/14/24956 Given 5 mg intravenous Performed by: Denise Mendez RN Scanned Package: [id number] fentaNYL (SUBLIMAZE) preservative free injection 50 mcg [[id number]] Ordering Provider: Frandy Ferreira MD Status: Completed (Past End Date/Time) Ordered On: 05/14/24953 Starts/Ends: 05/14/24954 - 05/14/24956 Ordered Dose (Remaining/Total): 50 mcg (0/1) Route: intravenous Frequency: Once Ordered Rate/Order Duration: -- / -- Line Med Link Info Comment Peripheral IV 05/14/24 20 G Left Hand 05/14/24956 by Denise Mendez RN -- Timestamps Action Dose Route Other Information 05/14/24956 Given 50 mcg intravenous Performed by: Denise Mendez RN Scanned Package: 5551-6928-98 amLODIPine (NORVASC) tablet 10 mg [[id number]] Ordering Provider: Vikash Servin MD Status: Dispensed Ordered On: 05/14/241757 Start: 05/14/241829 Ordered Dose (Remaining/Total): 10 mg (--/--) Route: oral Frequency: Daily Ordered Rate/Order Duration: -- / -- Timestamps Action Dose Route Other Information 05/16/24931 Given 10 mg oral Performed by: Juanita Weems RN atorvastatin (LIPITOR) tablet 10 mg [[id number]] Ordering Provider: Vikash Servin MD Status: Dispensed Ordered On: 05/14/241757 Start: 05/14/241829 Ordered Dose (Remaining/Total): 10 mg (--/--) Route: oral Frequency: Daily Ordered Rate/Order Duration: -- / -- Timestamps Action Dose Route Other Information 05/16/24931 Given 10 mg oral Performed by: Juanita Weems RN citalopram (CeleXA) tablet 20 mg [[id number]] Ordering Provider: Vikash Servin MD Status: Dispensed Ordered On: 05/14/241757 Start: 05/14/241829 Ordered Dose (Remaining/Total): 20 mg (--/--) Route: oral Frequency: Daily Ordered Rate/Order Duration: -- / -- Timestamps Action Dose Route Other Information 05/16/24931 Given 20 mg oral Performed by: Juanita Weems RN docusate sodium (COLACE) capsule 100 mg [[id number]] Ordering Provider: Vikash Servin MD Status: Dispensed Ordered On: 05/14/241757 Start: 05/14/242099 Ordered Dose (Remaining/Total): 100 mg (--/--) Route: oral Frequency: 2 times daily Ordered Rate/Order Duration: -- / -- Timestamps Action Dose Route Other Information 05/16/24931 Given 100 mg oral Performed by: Juanita Weems RN pantoprazole DR (PROTONIX) extended release tablet 40 mg [[id number]] Ordering Provider: Vikash Servin MD Status: Dispensed Ordered On: 05/14/241757 Start: 05/14/241829 Ordered Dose (Remaining/Total): 40 mg (--/--) Route: oral Frequency: Daily Ordered Rate/Order Duration: -- / -- Admin Instructions: Do not crush, chew, cut, dissolve, open or otherwise manipulate tablet/capsule. Timestamps Action Dose Route Other Information 05/16/24 0932 Given 40 mg oral Performed by: Juanita Weems RN QUEtiapine (SEROquel) tablet 50 mg [[id number]] Ordering Provider: Vikash Servin MD Status: Dispensed Ordered On: 05/14/241757 Start: 05/14/242099 Ordered Dose (Remaining/Total): 50 mg (--/--) Route: oral Frequency: Nightly Ordered Rate/Order Duration: -- / -- Timestamps Action Dose Route Other Information 05/15/242117 Given 25 mg oral Performed by: Cuca Thakur RN Comments: pt spit 25mg pill on floor Scanned Package: 44750-580-79 enoxaparin (LOVENOX) syringe 30 mg [[id number]] Ordering Provider: Vikash Servin MD Status: Dispensed Ordered On: 05/14/241757 Start: 05/14/242099 Ordered Dose (Remaining/Total): 30 mg (--/--) Route: subcutaneous Frequency: Every 12 hours scheduled Ordered Rate/Order Duration: -- / -- Timestamps Action Dose Route / Site Other Information 05/16/24827 Given 30 mg subcutaneous Left Lower Abdomen Performed by: Juanita Weems RN Scanned Package: 04451-629-40 sodium chloride 0.9% flush 0.5-20 mL [[id number]] Ordering Provider: Vikash Servin MD Status: Verified Ordered On: 05/14/241757 Start: 05/14/241829 Ordered Dose (Remaining/Total): 0.5-20 mL (--/--) Route: intra-catheter Frequency: Every 8 hours scheduled (alternate) Ordered Rate/Order Duration: -- / -- Admin Instructions: Flush volume based on line type and size. Timestamps Action Dose Route Other Information 05/16/24 0829 Given 10 mL intra-catheter Performed by: Juanita Weems RN Scanned Package: [id number] sodium chloride 0.9% flush 0.5-20 mL [[id number]] Ordering Provider: Vikash Servin MD Status: Verified Ordered On: 05/14/241757 Start: 05/14/241757 Ordered Dose (Remaining/Total): 0.5-20 mL (--/--) Route: intra-catheter Frequency: As needed Ordered Rate/Order Duration: -- / -- Admin Instructions: Flush volume based on line type and size. Flush before and after each use. (No admins scheduled or recorded for this medication) Carrier Fluids for Secondary Infusion - 0.9% Sodium Chloride [[id number]] Ordering Provider: Vikash Servin MD Status: Verified Ordered On: 05/14/241757 Start: 05/14/241757 Ordered Dose (Remaining/Total): 30 mL (--/--) Route: intravenous Frequency: As needed Ordered Rate/Order Duration: -- / -- Admin Instructions: 0-250 ml/hr to flush line after IV infusions when no maintenance IV ordered. Infuse 30mL at the same rate as the secondary infusion. Run as primary IV, not intended for KVO. (No admins scheduled or recorded for this medication) senna-docusate (PERICOLACE) 8.6-50 mg per tablet 1 tablet [[id number]] Ordering Provider: Vikash Servin MD Status: Dispensed Ordered On: 05/14/241757 Start: 05/14/242099 Ordered Dose (Remaining/Total): 1 tablet (--/--) Route: oral Frequency: 2 times daily Ordered Rate/Order Duration: -- / -- Admin Instructions: Hold for diarrhea. Timestamps Action Dose Route Other Information 05/16/24 0932 Given 1 tablet oral Performed by: Juanita Weems, KHLOE HYDROmorphone (DILAUDID) injection 0.5 mg [[id number]] Ordering Provider: Frandy Ferreira MD Status: Completed (Past End Date/Time) Ordered On: 05/14/241402 Starts/Ends: 05/14/241403 - 05/14/241405 Ordered Dose (Remaining/Total): 0.5 mg (0/1) Route: intravenous Frequency: Once Ordered Rate/Order Duration: -- / 2 Minutes Line Med Link Info Comment Peripheral IV 05/14/24 20 G Left Hand 05/14/24 1404 by Denise Mendez RN -- Timestamps Action Dose / Duration Route Other Information 05/14/24 140 Given 0.5 mg 2 Minutes intravenous Performed by: Denise Mendez RN Scanned Package: 0743-6359-58 haloperidol (HALDOL) injection 5 mg [[id number]] Ordering Provider: Berto Olivas MD Status: Completed (Past End Date/Time) Ordered On: 05/14/241509 Starts/Ends: 05/14/24 151 - 05/14/24 151 Ordered Dose (Remaining/Total): 5 mg (0/1) Route: intravenous Frequency: Once Ordered Rate/Order Duration: -- / -- Admin Instructions: If administered IV push, administer over 5 min for adults Line Med Link Info Comment Peripheral IV 05/14/24 20 G Left Hand 05/14/24 1510 by Denise Mendez RN -- Timestamps Action Dose Route Other Information 05/14/24 151 Given 5 mg intravenous Performed by: Denise Mendez RN fentaNYL (SUBLIMAZE) preservative free injection 50 mcg [[id number]] Ordering Provider: Frandy Ferreira MD Status: Completed (Past End Date/Time) Ordered On: 05/14/241646 Starts/Ends: 05/14/241647 - 05/14/241647 Ordered Dose (Remaining/Total): 50 mcg (0/1) Route: intravenous Frequency: Once Ordered Rate/Order Duration: -- / -- Line Med Link Info Comment Peripheral IV 05/14/24 20 G Left Hand 05/14/24 164 by Denise Mendez RN -- Timestamps Action Dose Route Other Information 05/14/241647 Given 50 mcg intravenous Performed by: Denise Mendez RN Scanned Package: 2290-0453-21 haloperidol (HALDOL) injection 2.5 mg [[id number]] Ordering Provider: Berto Olivas MD Status: Completed (Past End Date/Time) Ordered On: 05/14/241710 Starts/Ends: 05/14/241711 - 05/14/241713 Ordered Dose (Remaining/Total): 2.5 mg (0/1) Route: intravenous Frequency: Once Ordered Rate/Order Duration: -- / -- Admin Instructions: If administered IV push, administer over 5 min for adults Line Med Link Info Comment Peripheral IV 05/14/24 20 G Left Hand 05/14/241713 by Denise Mendez RN -- Timestamps Action Dose Route Other Information 05/14/241713 Given 2.5 mg intravenous Performed by: Denise Mendez RN Scanned Package: 49805-393-20 levothyroxine (SYNTHROID) tablet 137 mcg [[id number]] Ordering Provider: Spike Tidwell MD Status: Dispensed Ordered On: 05/14/242047 Start: 05/15/24599 Ordered Dose (Remaining/Total): 137 mcg (--/--) Route: oral Frequency: Daily (early AM) Ordered Rate/Order Duration: -- / -- Admin Instructions: Administer on an empty stomach, preferably 30 minutes before breakfast. Take 4 hours apart from antacids, iron and calcium products. Separate from tube feeds, if applicable. Timestamps Action Dose Route Other Information 05/16/24543 Given 137 mcg oral Performed by: Cuca Thakur RN Scanned Package: 10709-033-11 sodium chloride 0.9% bolus 500 mL [[id number]] Ordering Provider: Spike Tidwell MD Status: Completed (Past End Date/Time) Ordered On: 05/14/242251 Starts/Ends: 05/14/242329 - 05/14/242313 Ordered Dose (Remaining/Total): 500 mL (0/1) Route: intravenous Frequency: Once Ordered Rate/Order Duration: -- / -- Timestamps Action Dose Route Other Information 05/14/242313 New Bag 500 mL intravenous Performed by: Nataliya Saxena RN Scanned Package: 1783-6959-98 dextrose gel in packet 15 g [[id number]] Ordering Provider: Spike Tidwell MD Status: Verified Ordered On: 05/15/24535 Start: 05/15/24535 Ordered Dose (Remaining/Total): 15 g (--/--) Route: oral Frequency: Every 15 min PRN Ordered Rate/Order Duration: -- / -- Admin Instructions: If patient is alert and able to eat/drink, give 15 gm glucose or one juice (4 fluid ounces) NOT ORANGE JUICE. After treatment for hypoglycemia, recheck BG followed by treatment every 15 minutes until the BG is greater than 100 mg/dL. Then check BG 1 hour post-treatment. If BG isless than 100 mg/dL, repeat Q15 minute BG checks and treatment. Call MD for each episode of hypoglycemia. (No admins scheduled or recorded for this medication) dextrose (D10W) 10% bolus 250 mL [[id number]] Ordering Provider: Spike iTdwell MD Status: Verified Ordered On: 05/15/24535 Start: 05/15/24535 Ordered Dose (Remaining/Total): 250 mL (--/--) Route: intravenous Frequency: Every 15 min PRN Ordered Rate/Order Duration: 1,000 mL/hr / 15 Minutes Admin Instructions: After treatment for hypoglycemia, recheck BG followed by treatment every 15 minutes until the BG is greater than 100 mg/dL. Then check BG 1 hour post treatment. If BG is less [id number] mg/dL, repeat Q15 minute BG checks and treatment. Call MD for each episode of hypoglycemia. (No admins scheduled or recorded for this medication) glucagon injection 1 mg [[id number]] Ordering Provider: Spike Tidwell MD Status: Verified Ordered On: 05/15/24535 Start: 05/15/24535 Ordered Dose (Remaining/Total): 1 mg (--/--) Route: intramuscular Frequency: Every 30 min PRN Ordered Rate/Order Duration: -- / -- Admin Instructions: After Glucagon is administered, position patient on side if possible to avoid aspiration. Obtain IV access. Follow glucagon treatment with glucose treatment or IV dextrose. After treatment for hypoglycemia, recheck BG followed by treatment every 15 minutes until the BG isgreater than 100 mg/dL. Then check BG 1 hour post treatment. If BG is less than 100 mg/dL, repeat Q15 minute BG checks and treatment. Call MD for each episode of hypoglycemia. Reconstitute 1 mg vial with 1 mL SWFI. Use immediately following reconstitution. (No admins scheduled or recorded for this medication) insulin lispro (HumaLOG, ADMELOG) 100 unit/mL injection 0-5 Units [[id number]] Ordering Provider: Spike Tidwell MD Status: Dispensed Ordered On: 05/15/24535 Start: 05/15/24 0800 Ordered Dose (Remaining/Total): 0-5 Units (--/--) Route: subcutaneous Frequency: 3 times daily with meals Ordered Rate/Order Duration: -- / -- Admin Instructions: Blood glucose mg/dL: 149 or less: No insulin 150-199: add 1 unit 200-249: add 2 units 250-299: add 3 units 300-349: add 4 units and notify physician for adjustment of insulin orders. 350-399: add 5 units and notify physician for adjustment of insulin orders. Over 400: Notify physician for adjustment of insulin orders. Do NOT hold for NPO Status Timestamps Action Dose Route / Site Other Information 05/15/24 0933 Given 3 Units subcutaneous Left Lower Abdomen Performed by: Betsy Hernandez Scanned Package: [id number] insulin lispro (HumaLOG, ADMELOG) 100 unit/mL injection 0-4 Units [[id number]] Ordering Provider: Spike Tidwell MD Status: Verified Ordered On: 05/15/24535 Start: 05/15/24 2100 Ordered Dose (Remaining/Total): 0-4 Units (--/--) Route: subcutaneous Frequency: Nightly Ordered Rate/Order Duration: -- / -- Admin Instructions: Blood glucose mg/dL: 199 or less: No insulin 200-249: add 1 unit 250-299: add 2 units 300-349: add 3 units and notify physician for adjustment of insulin orders. 350- 399: add 4 units and notify physician for adjustment of insulin orders. Over 400: Notify physician for adjustment of insulin orders. Do NOT hold for NPO Status (No admins scheduled or recorded for this medication) QUEtiapine (SEROquel) tablet 25 mg [[id number]] Ordering Provider: Cain Demarco MD Status: Completed (Past End Date/Time) Ordered On: 05/15/24 1400 Starts/Ends: 05/15/24 1445 - 05/15/24 1448 Ordered Dose (Remaining/Total): 25 mg (0/1) Route: oral Frequency: Once Ordered Rate/Order Duration: -- / -- Timestamps Action Dose Route Other Information 05/15/24 1448 Given 25 mg oral Performed by: Betsy Hernandez Scanned Package: 51789-401-10 lidocaine (ASPERCREME) 4 % patch 1 patch [[id number]] Ordering Provider: Cain Demarco MD Status: Dispensed Ordered On: 05/15/24 1419 Start: 05/15/24 1500 Ordered Dose (Remaining/Total): 1 patch (--/--) Route: transdermal Frequency: Every 24 hours Ordered Rate/Order Duration: -- / 12 Hours Question Answer Comment Apply to affected area:: abdomen -- Timestamps Action Dose / Duration Route / Site Other Information 05/15/24 1448 Medication Applied 1 patch 12 Hours transdermal Back Performed by: Betsy Hernandez Scanned Package: 8821-1634-94 oxyCODONE (ROXICODONE) tablet 5 mg [[id number]] Ordering Provider: Spike Tidwell MD Status: Dispensed Ordered On: 05/15/241912 Start: 05/15/241912 Ordered Dose (Remaining/Total): 5 mg (--/--) Route: oral Frequency: Every 4 hours PRN Ordered Rate/Order Duration: -- / -- Timestamps Action Dose Route Other Information 05/16/24 0410 Given 5 mg oral Performed by: Cuca Thakur RN Scanned Package: 50350-910-33 HYDROmorphone (DILAUDID) injection 0.2 mg [[id number]] Ordering Provider: Spike Tidwell MD Status: Completed (Past End Date/Time) Ordered On: 05/16/24 0057 Starts/Ends: 05/16/24 0130 - 05/16/24 0102 Ordered Dose (Remaining/Total): 0.2 mg (0/1) Route: intravenous Frequency: Once Ordered Rate/Order Duration: -- / 2 Minutes Timestamps Action Dose / Duration Route Other Information 05/16/24 0100 Given 0.2 mg 2 Minutes intravenous Performed by: Cuca Thakur RN Scanned Package: 8532-9860-17 sodium zirconium cyclosilicate (LOKELMA) packet 5 g [[id number]] Ordering Provider: Spike Tidwell MD Status: Completed (Past End Date/Time) Ordered On: 05/16/248 Starts/Ends: 05/16/24 043 - 05/16/24730 Ordered Dose (Remaining/Total): 5 g (0/1) Route: oral Frequency: Once Ordered Rate/Order Duration: -- / -- Admin Instructions: Adjust medication timing to ensure other oral medications are administered at least 2 hours before or 2 hours after sodium zirconium cyclosilicate. Empty packet(s) into a glass with 3 tablespoons (45 mL) of water. Stir and administer immediately. Repeat until no powder remainsin glass. Timestamps Action Dose Route Other Information 05/16/24730 Given 5 g oral Performed by: Juanita Weems RN Scanned Package: 7828-2159-27 HYDROmorphone (DILAUDID) injection 0.2 mg [[id number]] Ordering Provider: Amador Nj MD Status: Completed (Past End Date/Time) Ordered On: 05/16/24843 Starts/Ends: 05/16/24914 - 05/16/24909 Ordered Dose (Remaining/Total): 0.2 mg (0/1) Route: intravenous Frequency: Once Ordered Rate/Order Duration: -- / 2 Minutes Timestamps Action Dose / Duration Route Other Information 05/16/24907 Given 0.2 mg 2 Minutes intravenous Performed by: Juanita Weems RN Scanned Package: [id number] acetaminophen (TYLENOL) tablet 1,000 mg [[id number]] Ordering Provider: Falguni Galvez NP Status: Verified Ordered On: 05/16/24843 Start: 05/16/24 1200 Ordered Dose (Remaining/Total): 1,000 mg (--/--) Route: oral Frequency: Every 6 hours scheduled Ordered Rate/Order Duration: -- / -- (No admins scheduled or recorded for this medication) methocarbamoL (ROBAXIN) tablet 500 mg [[id number]] Ordering Provider: Falguni Galvez NP Status: Dispensed Ordered On: 05/16/24843 Start: 12/09/24 0915 Ordered Dose (Remaining/Total): 500 mg (--/--) Route: oral Frequency: 3 times daily Ordered Rate/Order Duration: -- / -- Timestamps Action Dose Route Other Information 05/16/24 0932 Given 500 mg oral Performed by: Juanita Weems RN , OT Eval and Treat Last 72 Hours OT Evaluation Row Name 05/15/24 0248 Chart Reviewed Yes -CP Session Type Evaluation -CP OT Received On 05/15/24 -CP Safe Environment Arm band checked;Patient found in supine;Gait belt utilized for all out of bed mobility soft wrist restraints donned -CP Subjective Agreeable to Therapy -CP Subjective Comment Let's go. I'm hurting. -CP Family/Caregiver Present Yes granddaughter -CP Occupational Therapy-Patient Goal Pt did not state a goal this date. -CP Precautions Fall risk -CP Weight Bearing Restrictions Yes -CP RLE Weight Bearing WBAT -CP Precaution Handout Issued No -CP Precaution Comments Verbally reviewed weight bearing restrictions and pt somewhat verbalized understanding. -CP Type of Home Retirement Facility -CP Home Layout One level -CP Home Access Level entry -CP Bathroom Shower/Tub Walk-in shower with threshold -CP Bathroom Toilet Standard -CP Bathroom Equipment Grab bars in shower/tub;Shower chair -CP Home Mobility Equipment-Available None -CP Home Mobility Equipment-Currently Using None -CP Home ADL Equipment-Available None -CP Home ADL Equipment-Currently Using None -CP Level of [place] Independent with ADLs;Independent functional transfers;Independent with ambulation;Needs assistance with homemaking -CP Lives With Alone -CP Receives Help From Facility staff 29/12 assist available -CP Driving No -CP Mode of Transportation Driven by others -CP ADL Assistance Independent -CP Instrumental ADL (IADL) Assistance Needs assistance -CP Vocational/Occupation Retired -CP Leisure Hobbies-yes (Comment) watch bands -CP Fall within the last 6 months Yes -CP Fall within the last 6 months comment 1 fall d/t potential tripping -CP ADLS (WDL) X -CP Grooming: Where assessed Chair -CP Grooming: Level of assistance Moderate Assist setup task, total balance; washing face -CP Grooming: Assistance with Balance -CP LE Dressing: Where assessed Supine, bed -CP LE Dressing: Level of assistance Dependent total task, total balance -CP LE Dressing: Assistance with Don/doff R sock;Don/doff L sock;Balance;Safety -CP Toilet Transfer From Bed -CP Toilet Transfer Type To -CP Toilet Transfer to -- sim to arm chair -CP Toilet Transfer Technique Stand and Step -CP Toilet Transfer: Equipment Hand hold -CP Toilet Transfers Maximal assistance x2 -CP Toilet Transfers Comments decreased force production, safety, balance -CP Pain Assessment 0-10 -CP Pain Score 10 - Worst possible pain -CP Pain Type Acute pain -CP Pain Location Buttocks -CP Pain Interventions RN Notified -CP Current Vision Does not wear glasses -CP Cognition Comments Pt cooperative with impulsivity to get OOB and off of bottom d/t pain. -CP Overall Cognitive Status Impaired -CP Arousal/Alertness Appropriate responses to stimuli;Alert -CP Attention Span Attends with cues to redirect;Difficulty attending to directions;Difficulty dividingattention;Distractability -CP Memory Decreased short term memory;Decreased recall of recent events;Decreased recall of precautions;Decreased recall of biographical information -CP Current communication Appears Intact -CP Orientation Oriented to person -CP Following Commands Follows one step commands with repetition -CP Safety Judgment Decreased awareness of need for safety -CP Awareness of Errors Assistance required to identify errors made;Assistance required to correct errors made;Decreased awareness of errors -CP Insight Decreased awareness of deficits -CP Problem Solving Assistance required to generate solutions;Assistance required to identify errors made;Assistance required to implement solutions -CP Compliance/Behavior Easy to engage -CP Perseveration Not present -CP Cognitive Tests No NT d/t pt mental status -CP Light Touch WFL -CP Numbness/Tingling No -CP Hand Preference Right -CP Balance Tests Yes -CP Sitting Balance 1 -CP Arises 0 -CP Attempts to Arise 0 -CP Immediate Standing Balance (First 5 Seconds) 0 -CP Standing Balance 0 -CP Nudged 0 -CP Eyes Closed 0 -CP Turned 360 Degrees: Steadiness 0 -CP Turned 360 Degrees: Continuity of Steps 0 -CP Sitting Down 0 -CP Balance Score 1 -CP Balance Yes -CP Static Sitting-Balance Support Bilateral upper extremity supported;Feet supported -CP Static Sitting-Sitting Surface Bed -CP Static Sitting-Level of Assistance Close supervision -CP Static Sitting-Comment/# of Minutes safety, balance, impulsive -CP Static Standing-Balance Support Bilateral upper extremity supported on therapist -CP Static Standing-Standing Surface Floor -CP Static Standing-Level of Assistance Maximum assistance x2 -CP Static Standing-Comment/# of Minutes decreased force production, safety, balance -CP Bed Mobility Yes -CP Bed Mobility From 1 Supine -CP Bed Mobility Type 1 To and from -CP Bed Mobility to 1 Edge of bed -CP Level of Assistance 1 Maximum Assist x2 -CP Bed Mobility Comments 1 trunk elevation, moving LEs/hips into/OOB -CP Transfer Yes -CP Transfer From 1 Sit -CP Transfer Type 1 To and from -CP Transfer to 1 Stand -CP Technique 1 Sit to stand;Stand to sit -CP Transfer Device 1 Hand held assist -CP Transfer Level of Assistance 1 Maximum Assist x2 -CP Trials/Comments 1 decreased force production, safety, balance -CP Transfer From 2 Bed -CP Transfer Type 2 To and from -CP Transfer to 2 Chair with arms -CP Technique 2 Stand and step -CP Transfer Device 2 Hand held assist -CP Transfer Level of Assistance 2 Maximum Assist x2 -CP Trials/Comments 2 decreased force production, safety, balance -CP RUE Assessment WFL -CP LUE Assessment WFL -CP Comments Pt was seen for initial OT eval this PM and presents as above. Pt donned socks dep and washed face mod a. Pt transferred from supine to/from sitting EOB max x2 for trunk elevation and movingLEs/hips into/OOB, sit to/from stand max x2 and stand step from bed to/from arm chair max x2 d/t decreased force production, safety, balance. Pt unable to tolerate sitting up in recliner d/t pain in bottom. Pt is performing below her functional baseline and would continue to benefit from skilled acute OT while inpatient to maximize independence and safety with functional transfers and participation in ADLs/IADLs. OT to continue to follow acutely. -CP Putting on and taking off regular lower body clothing 1 -CP Bathing 2 -CP Toileting 1 -CP Putting on and taking off upper body clothing 2 -CP Personal Grooming 2 -CP Eating Meals 3 -CP Total Score (range 6-24) 11 -CP Score Interpretation 29.04 -CP Safe Environment End of Therapy Session Patient left supine in bed;Bed alarm in place and activated;RN notified;Call light within reach;Overbed table within reach soft wrist restraints donned -CP Problem List Debility;Decreased mobility;Decreased safe judgment during ADL;Decreased cognition;Decreased endurance;Decreased balance;Decreased functional mobility;Decreased ADL independence;Decreased IADL independence;Pain;Decreased upper extremity strength Simultaneous filing. User may not have seen previous data. -CM (r) CP (t) Barriers to Discharge Current Mobility Status;Current ADL Status;Cognition;Decreased safety awareness -CP Barrier Comments fall risk -CP Plan Plan of care initiated;If this is the last note, consider this the discharge summary -CP OT Recommendation Inpatient Rehab Facility -CP Patient at high risk for Falls;Readmission;Injury due to decreased ability to care for self;Injury due to reduced functional status;Injury due to impaired cognition;Injury due to balance deficits;Injury at home as patient has not returned to prior level of function -CP Recommend Inpatient Rehab/Acute Rehab due to Ability to actively participate in intensive therapy 3hours/day, 5 days/week or 900 minutes per week;Highly motivated to participate in therapy;Not at baseline due to impaired ability to complete ADLs;Impaired ability to complete functional mobility;Likely to return to the community at discharge with support system in place;Requires greater than 25% physical assistance with most mobility tasks;Requires greater than 25% physical assistance with most ADL tasks;Requires multiple therapy disciplines to address functional deficits;Patient and caregiverrequire specialized skilled training due to new level of function/diagnosis -CP OT Frequency during current admission 5-7x/wk -CP Treatment/Interventions during current admission ADL/IADL retraining;Balance Training;Bed mobility;Endurance training;Equipment eval/education;Functional activity;Functional mobility training;Functional transfer training;Parent/caregiver training and education;Strengthening;Therapeutic activity;Therapeutic exercise;Transfer training;Cognitive retraining -CP OT - Next Appointment 05/16/24 -CP OT - OK to Discharge No -CP OT Evaluation Complete Yes -CP OT Start Time 1302 -CP OT Stop Time 1333 -CP OT Time Calculation (min) 31 min -CP User Richard (r) = Recorded By, (t) = Taken By, (c) = Cosigned By Initials Name Effective Dates CM Linsey Kaiser, OT 01/26/23 - CP Krystyna Ledesma 02/02/24 - OT Treatment No documentation. OT Notes Notes from 05/14/24 through 05/16/24 No notes of this type exist for this encounter. , PT Eval and Treat Last 72 Hours PT Evaluation Row Name 05/16/24 1949 Chart Reviewed Yes -MR Session Type Evaluation -MR Safe Environment Arm band checked;Gait belt utilized for all out of bed mobility -MR Subjective Agreeable to Therapy -MR Family/Caregiver Present No -MR Precautions Fall risk -MR Weight Bearing Restrictions Yes -MR RLE Weight Bearing WBAT -MR Precaution Handout Issued No -MR Type of Home Extended Care Facility -MR Home Layout One level -MR Home Access Level entry -MR Home Mobility Equipment-Available None -MR Home Mobility Equipment-Currently Using None -MR Level of [place] Independent functional transfers;Independent with ambulation;Needs assistancewith ADLs -MR Receives Help From Facility staff;Family -MR Driving No -MR Vocational/Occupation Retired -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 -MR Fall within the last 6 months Yes -MR Fall within the last 6 months comment 2 -MR Activity Tolerance Comments Jess: -MR Pain Assessment Advanced Dementia -MR Breathing 1 -MR Negative Vocalization 2 -MR Facial Expression 2 -MR Body Language 1 -MR Consolability 1 -MR PAINAD Score 7 -MR Arousal/Alertness Alert;Appropriate responses to stimuli -MR Orientation Oriented to person Baseline per daughter -MR Following Commands Follows one step commands with increased time -MR Compliance/Behavior Easy to engage -MR Light Touch WFL B LE -MR Sensation Comments Small bruise over upper back, otherwise no wounds or edema -MR User Richard (r) = Recorded By, (t) = Taken By, (c) = Cosigned By Initials Name Effective Dates Edie Acuna, PT 02/23/20 - PT TREATMENT (Last 168 Hours) PT Treatment No documentation. PT Notes Notes from 05/14/24 through 05/16/24 No notes of this type exist for this encounter. , Wound Info Only Active Wound Assessment Active Wound / Pressure injury / Lamb / Negative Pressure Wound / Incision None , Vitals Info Only Vital Signs 05/15 0659 05/16 0705/16 1014 Most Recent Temp (??C) 36.8 - 37.4 36.8 (98.2) 05/16 0400 Pulse 69 - 109 87 - 104 92 05/16 935 Resp 15 - 22 15 - 19 19 05/16 935 SpO2 (%) 91 - 98 91 - 96 96 05/16 935 BP 131/50 - 166/72 161/83 - 186/75 186/75 05/16 935 MAP (mmHg) 73 - 102 91 - 106 104 05/16 935 , Oxygen Info Only Default Flowsheet Data (most recent) Endurance Tests No documentation. Default Flowsheet Data (Last 48 Hours) Oxygen Row Name 05/16/24 0935 05/16/24 0855 05/16/24 0809 05/16/24 0800 05/16/24 0700 Oxygen Therapy/Pulse Ox O2 Therapy Supplemental oxygen Supplemental oxygen Supplemental oxygen -- -- O2 Del Method High flow nasal cannula High flow nasal cannula High flow nasal cannula -- -- O2 Flow Rate (L/min) 4 L/min 4 L/min 5 L/min -- -- SpO2 96 % 91 % 92 % 93 % 92 % Row Name 05/16/24 0600 05/16/24 0500 05/16/24 0400 05/16/24 0300 05/16/24 0200 Oxygen Therapy/Pulse Ox O2 Therapy Supplemental oxygen Supplemental oxygen Supplemental oxygen Supplemental oxygen Supplemental oxygen O2 Del Method High flow nasal cannula High flow nasal cannula High flow nasal cannula High flow nasal cannula High flow nasal cannula O2 Flow Rate (L/min) 5 L/min 5 L/min 4 L/min 4 L/min 4 L/min SpO2 92 % 91 % 91 % 97 % 94 % Patient Activity At rest At rest At rest At rest At rest Row Name 05/16/24 0100 05/16/24 0000 05/15/24 2300 05/15/24 2200 05/15/24 2100 Oxygen Therapy/Pulse Ox O2 Therapy Supplemental oxygen Supplemental oxygen Supplemental oxygen Supplemental oxygen Supplemental oxygen O2 Del Method High flow nasal cannula High flow nasal cannula High flow nasal cannula High flow nasal cannula High flow nasal cannula O2 Flow Rate (L/min) 4 L/min 4 L/min 4 L/min 4 L/min 4 L/min SpO2 95 % 94 % 97 % 96 % 96 % Patient Activity At rest At rest At rest At rest At rest Row Name 05/15/24 2000 05/15/24 1600 05/15/24 1400 05/15/24 1200 05/15/24 0800 Oxygen Therapy/Pulse Ox O2 Therapy Supplemental oxygen -- -- -- -- O2 Del Method High flow nasal cannula High flow nasal cannula -- -- -- O2 Flow Rate (L/min) 4 L/min 4 L/min -- -- -- SpO2 95 % 95 % 95 % 97 % 97 % Patient Activity At rest -- -- -- -- Row Name 05/15/24 0700 05/15/24 0600 05/15/24 0500 05/15/24 0400 05/15/24 0300 Oxygen Therapy/Pulse Ox O2 Del Method -- -- -- High flow nasal cannula -- O2 Flow Rate (L/min) -- -- -- 6 L/min -- SpO2 98 % 96 % 97 % 97 % 97 % Patient Activity -- -- -- At rest -- Row Name 05/15/24 0200 05/15/24 0100 05/15/24 0036 05/15/24 0005 05/15/24 0000 Oxygen Therapy/Pulse Ox O2 Therapy -- -- -- Supplemental oxygen -- O2 Del Method -- -- High flow nasal cannula High flow nasal cannula -- O2 Flow Rate (L/min) -- -- 6 L/min titrated down 10 L/min -- SpO2 97 % 99 % -- -- 100 % Patient Activity -- -- -- At rest -- [facility] Name 05/14/24 2300 05/14/24 2200 05/14/24 2100 05/14/24 2000 05/14/24 1900 Oxygen Therapy/Pulse Ox O2 Therapy Supplemental oxygen -- -- Supplemental oxygen -- O2 Del Method High flow nasal cannula -- -- High flow nasal cannula -- O2 Flow Rate (L/min) 10 L/min -- -- 10 L/min -- SpO2 100 % 100 % 100 % 97 % 98 % Patient Activity At rest -- -- At rest -- [facility] Name 05/14/24 1800 05/14/24 1715 05/14/24 1555 05/14/24 1530 05/14/24 1505 Oxygen Therapy/Pulse Ox O2 Therapy -- -- -- -- Supplemental oxygen O2 Del Method -- -- -- -- High flow nasal cannula O2 Flow Rate (L/min) -- -- -- -- 10 L/min SpO2 90 % 92 % 94 % 92 % -- Row Name 05/14/24 1500 05/14/24 1430 05/14/24 1400 05/14/24 1330 05/14/24 1230 Oxygen Therapy/Pulse Ox O2 Therapy -- -- Supplemental oxygen -- -- O2 Del Method -- -- High flow nasal cannula -- -- O2 Flow Rate (L/min) -- -- 8 L/min -- -- SpO2 88 % pt removed NC 92 % 93 % 95 % 95 % Row Name 05/14/24 1225 05/14/24 1220 05/14/24 1200 Oxygen Therapy/Pulse Ox O2 Therapy Supplemental oxygen -- Supplemental oxygen O2 Del Method High flow nasal cannula -- High flow nasal cannula O2 Flow Rate (L/min) 6 L/min -- 8 L/min SpO2 96 % 95 % 97 % ESS TANK TENDER * Plan of Care - Cuca Thakur RN - 05/16/2024 12:51 AM CST Problem: Restraint for Interference with Medical Safety Goal: Knowledge of restraints will improve Outcome: Not Progressing Goal: Free from restraint(s) Outcome: Not Progressing Problem: Discharge Planning Goal: Understanding discharge needs will improve Outcome: Not Progressing Problem: General Patient Education Goal: Knowledge of disease process, condition or treatment will be improved Outcome: Not Progressing Problem: Lack of Knowledge Goal: Ability to develop a pain control plan will improve Outcome: Ongoing Problem: Sensory Goal: Ability to identify factors that increase pain levels will improve while working to decrease the patient's pain levels Outcome: Ongoing Problem: Restraint for Interference with Medical Safety Goal: Remains free from injury from restraints Outcome: Progressing Problem: Activity Goal: Risk for activity intolerance and fatigue will decrease Outcome: Progressing Goal: Ability to tolerate increased activity will improve Outcome: Progressing Goal: Ability to avoid complications of mobility impairment will improve Outcome: Progressing Problem: Fluid Volume Goal: Ability to maintain a balanced intake and output will improve Outcome: Progressing Goal: Will show no signs and symptoms of excessive bleeding Outcome: Progressing Problem: Nutritional Goal: Nutrient intake appropriate for improving, restoring or maintaining nutritional needs Outcome: Progressing Goal: Implement dietary regimen as ordered Outcome: Progressing Problem: Tissue Perfusion Goal: Adequacy of tissue perfusion will improve Outcome: Progressing Problem: Medication Goal: Satisfaction with pain management medication regimen will improve Outcome: Progressing Problem: Coping Goal: Ability to cope will improve Outcome: Progressing Problem: Health Behavior Goal: Identification of resources available to assist in meeting health care needs will improve Outcome: Progressing Problem: Skin Integrity Impairment Risk Goal: Mobility will improve Outcome: Progressing Goal: Understanding of ways to prevent future skin breakdown will improve Outcome: Progressing Goal: Nutritional status will improve Outcome: Progressing Goal: Risk for impaired skin integrity will decrease Outcome: Progressing Goals: Clinical Goals for the Shift: VS, manage pt pain and agitation Summary: ESS TANK TENDER * Plan of Zeke - Betsy Hernandez - 05/15/2024 6:17 PM CST Problem: Restraint for Interference with Medical Safety Goal: Knowledge of restraints will improve Outcome: Progressing Goal: Remains free from injury from restraints Outcome: Progressing Goal: Free from restraint(s) Outcome: Progressing Problem: Activity Goal: Risk for activity intolerance and fatigue will decrease Outcome: Progressing Goal: Ability to tolerate increased activity will improve Outcome: Progressing Goal: Ability to avoid complications of mobility impairment will improve Outcome: Progressing Problem: Discharge Planning Goal: Understanding discharge needs will improve Outcome: Progressing Problem: Fluid Volume Goal: Ability to maintain a balanced intake and output will improve Outcome: Progressing Goal: Will show no signs and symptoms of excessive bleeding Outcome: Progressing Problem: General Patient Education Goal: Knowledge of disease process, condition or treatment will be improved Outcome: Progressing Problem: Nutritional Goal: Nutrient intake appropriate for improving, restoring or maintaining nutritional needs Outcome: Progressing Goal: Implement dietary regimen as ordered Outcome: Progressing Problem: Tissue Perfusion Goal: Adequacy of tissue perfusion will improve Outcome: Progressing Problem: Lack of Knowledge Goal: Ability to develop a pain control plan will improve Outcome: Progressing Problem: Medication Goal: Satisfaction with pain management medication regimen will improve Outcome: Progressing Problem: Sensory Goal: Ability to identify factors that increase pain levels will improve while working to decrease the patient's pain levels Outcome: Progressing Problem: Coping Goal: Ability to cope will improve Outcome: Progressing Problem: Health Behavior Goal: Identification of resources available to assist in meeting health care needs will improve Outcome: Progressing Problem: Skin Integrity Impairment Risk Goal: Mobility will improve Outcome: Progressing Goal: Understanding of ways to prevent future skin breakdown will improve Outcome: Progressing Goal: Nutritional status will improve Outcome: Progressing Goal: Risk for impaired skin integrity will decrease Outcome: Progressing Goals: Clinical Goals for the Shift: VSS, manage pain and agitation, I/O's, PT/OT Summary: ESS TANK TENDER * Plan of Zeke - Nataliya Saxena RN - 05/15/2024 2:16 AM CST Problem: Restraint for Interference with Medical Safety Goal: Knowledge of restraints will improve Outcome: Ongoing Goal: Remains free from injury from restraints Outcome: Ongoing Goal: Free from restraint(s) Outcome: Ongoing Problem: Activity Goal: Risk for activity intolerance and fatigue will decrease Outcome: Ongoing Goal: Ability to tolerate increased activity will improve Outcome: Ongoing Goal: Ability to avoid complications of mobility impairment will improve Outcome: Ongoing Problem: Discharge Planning Goal: Understanding discharge needs will improve Outcome: Ongoing Problem: Fluid Volume Goal: Ability to maintain a balanced intake and output will improve Outcome: Ongoing Goal: Will show no signs and symptoms of excessive bleeding Outcome: Ongoing Problem: General Patient Education Goal: Knowledge of disease process, condition or treatment will be improved Outcome: Ongoing Problem: Nutritional Goal: Nutrient intake appropriate for improving, restoring or maintaining nutritional needs Outcome: Ongoing Goal: Implement dietary regimen as ordered Outcome: Ongoing Problem: Tissue Perfusion Goal: Adequacy of tissue perfusion will improve Outcome: Ongoing Problem: Lack of Knowledge Goal: Ability to develop a pain control plan will improve Outcome: Ongoing Problem: Medication Goal: Satisfaction with pain management medication regimen will improve Outcome: Ongoing Problem: Sensory Goal: Ability to identify factors that increase pain levels will improve while working to decrease the patient's pain levels Outcome: Ongoing Problem: Coping Goal: Ability to cope will improve Outcome: Ongoing Problem: Health Behavior Goal: Identification of resources available to assist in meeting health care needs will improve Outcome: Ongoing Problem: Skin Integrity Impairment Risk Goal: Mobility will improve Outcome: Ongoing Goal: Understanding of ways to prevent future skin breakdown will improve Outcome: Ongoing Goal: Nutritional status will improve Outcome: Ongoing Goal: Risk for impaired skin integrity will decrease Outcome: Ongoing Problem: Restraint for Interference with Medical Safety Goal: Knowledge of restraints will improve Outcome: Ongoing Goal: Remains free from injury from restraints Outcome: Ongoing Goal: Free from restraint(s) Outcome: Ongoing Problem: Skin Integrity Impairment Risk Goal: Mobility will improve Outcome: Ongoing Goal: Understanding of ways to prevent future skin breakdown will improve Outcome: Ongoing Goal: Nutritional status will improve Outcome: Ongoing Goal: Risk for impaired skin integrity will decrease Outcome: Ongoing Problem: Activity Goal: Risk for activity intolerance and fatigue will decrease Outcome: Ongoing Goal: Ability to tolerate increased activity will improve Outcome: Ongoing Goal: Ability to avoid complications of mobility impairment will improve Outcome: Ongoing Problem: Discharge Planning Goal: Understanding discharge needs will improve Outcome: Ongoing Problem: Fluid Volume Goal: Ability to maintain a balanced intake and output will improve Outcome: Ongoing Goal: Will show no signs and symptoms of excessive bleeding Outcome: Ongoing Problem: General Patient Education Goal: Knowledge of disease process, condition or treatment will be improved Outcome: Ongoing Problem: Nutritional Goal: Nutrient intake appropriate for improving, restoring or maintaining nutritional needs Outcome: Ongoing Goal: Implement dietary regimen as ordered Outcome: Ongoing Problem: Tissue Perfusion Goal: Adequacy of tissue perfusion will improve Outcome: Ongoing Problem: Lack of Knowledge Goal: Ability to develop a pain control plan will improve Outcome: Ongoing Problem: Medication Goal: Satisfaction with pain management medication regimen will improve Outcome: Ongoing Problem: Sensory Goal: Ability to identify factors that increase pain levels will improve while working to decrease the patient's pain levels Outcome: Ongoing Problem: Coping Goal: Ability to cope will improve Outcome: Ongoing Problem: Health Behavior Goal: Identification of resources available to assist in meeting health care needs will improve Outcome: Ongoing Goals: Clinical Goals for the Shift: VSS, [id number], Is/Os, pain management Summary: VSS ESS TANK TENDER * Plan of Care - Danika Richardson RN - 05/14/2024 7:14 PM CST Goals: free from falls. Pain control. Restraints safely in place and monitored. Turn 2 Qhrs. Pain control. Summary: BP (!) 171/98 Pulse 115 Temp 37.2 ??C (99 ??F) (Axillary) Resp 19 SpO2 90% Problem: Restraint for Interference with Medical Safety Goal: Knowledge of restraints will improve Outcome: Progressing Goal: Remains free from injury from restraints Outcome: Progressing Goal: Free from restraint(s) Outcome: Progressing Problem: Skin Integrity Impairment Risk Goal: Mobility will improve Outcome: Progressing Goal: Understanding of ways to prevent future skin breakdown will improve Outcome: Progressing Goal: Nutritional status will improve Outcome: Progressing Goal: Risk for impaired skin integrity will decrease Outcome: Progressing Problem: Activity Goal: Risk for activity intolerance and fatigue will decrease Outcome: Progressing Goal: Ability to tolerate increased activity will improve Outcome: Progressing Goal: Ability to avoid complications of mobility impairment will improve Outcome: Progressing Problem: Discharge Planning Goal: Understanding discharge needs will improve Outcome: Progressing Problem: Fluid Volume Goal: Ability to maintain a balanced intake and output will improve Outcome: Progressing Goal: Will show no signs and symptoms of excessive bleeding Outcome: Progressing Problem: General Patient Education Goal: Knowledge of disease process, condition or treatment will be improved Outcome: Progressing Problem: Nutritional Goal: Nutrient intake appropriate for improving, restoring or maintaining nutritional needs Outcome: Progressing Goal: Implement dietary regimen as ordered Outcome: Progressing Problem: Tissue Perfusion Goal: Adequacy of tissue perfusion will improve Outcome: Progressing Problem: Lack of Knowledge Goal: Ability to develop a pain control plan will improve Outcome: Progressing Problem: Sensory Goal: Ability to identify factors that increase pain levels will improve while working to decrease the patient's pain levels Outcome: Progressing Problem: Coping Goal: Ability to cope will improve Outcome: Progressing Problem: Health Behavior Goal: Identification of resources available to assist in meeting health care needs will improve Outcome: Progressing Problem: Medication Goal: Satisfaction with pain management medication regimen will improve Outcome: Progressing ESS TANK TENDER * Assessment & Plan Note - Candy Diaz PA - 05/14/2024 2:29 PM PROCESS TANK TENDER Associated Problem(s): Acute pain Multi modal with lower dose oxycodone ESS TANK TENDER * Assessment & Plan Note - Candy Diaz PA - 05/14/2024 2:29 PM PROCESS TANK TENDER Associated Problem(s): Discharge planning issues 05/14 Admitted, syncope, PT/OT 05/16 poorly controlled pain, started schedule pain medications 05/17 agitation, Briscoe catheter placed for urinary retention 05/18 requiring 1:1 sitter 05/19 still requiring 1:1 sitter Treatment Plan completed ESS TANK TENDER ESS TANK TENDER ESS TANK TENDER ESS TANK TENDER ESS TANK TENDER ESS TANK TENDER ESS TANK TENDER ESS TANK TENDER * Assessment & Plan Note - Lynne Montero MD - 05/14/2024 1:55 PM CSTAssociated Problem(s): Possible syncopal fall - Orthostatics - TTE - Carotid duplex - F/u CT body read. 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) Continue home Celexa 20 daily, Seroquel 50 daily Hold home Ativan and consider discontinuing on discharge given falls and age 12/10 called to bedside for irritable behavior, bladder scan performed noted urinary retention- Briscoe placed, continue Seroquel 05/18 called to the bedside due to patient waning to get out of bd and not redirected, provided Zyprexa Sublingual 05/19 restarted home PRN Ativan BID ESS TANK TENDER ESS TANK TENDER ESS TANK TENDER * Assessment & Plan Note - Lynne Montero MD - 05/14/2024 1:43 PM CSTAssociated Problem(s): Hypothyroid Continue home levothyroxine 137mcg daily ESS TANK TENDER * Assessment & Plan Note - Lynne Montero MD - 05/14/2024 1:42 PM CSTAssociated Problem(s): Hyperlipidemia Continue home atorvastatin 10 daily ESS TANK TENDER * Assessment & Plan Note - Lynne Montero MD - 05/14/2024 1:38 PM CSTAssociated Problem(s): Atherosclerosis of both carotid arteries - History of R CEA (2017) and known completely occluded L ICA - repeat carotid duplex given possible syncope - patient should be on ASA 81mg once able to confirm she has no contraindications 05/18 started Aspirin 81 mg PO daily ESS TANK TENDER ESS TANK TENDER ESS TANK TENDER ESS TANK TENDER * Assessment & Plan Note - Lynne Montero MD - 05/14/2024 1:36 PM CSTAssociated Problem(s): Pubic ramus fracture, right, closed, initial encounter (HCC) - Orthopedics consult, non-op management - WBAT RLE - Pain control - PT/OT PLAN: Follow up with Dr. Singh, 06/29/21 at 12:30 weight bearing as tolerated, post orthopedic injury DVT prophylaxis Eliquis 2.5 mg pO x 4 weeks at discharge ESS TANK TENDER ESS TANK TENDER ESS TANK TENDER ESS TANK TENDER * ED Re-evaluation Note - Frandy Ferreira MD - 05/14/2024 6:29 AM PROCESS TANK TENDER ED Re-evaluation TRANSITION OF CARE: I, Frandy Ferreira MD, am taking signout. I have reviewed all pertinent vital signs, allergies,and history available in the chart. Summary: 83 y.o. female PMH of Alzheimers, HLD, hypothyroid, HTN presenting to the ED as trauma transfer for stable pelvic fracture following ground level fall at [facility]. Patient agitated, required 5 of Haldol and 2 of Ativan. R superior and inferior rami fx GTS and orthopedic surgery involved Pending: Ortho Dispo: Geriatric trauma service admit ED Course as of 05/14/24 1503 Time: 05/14 0553 Comment: Ortho to see By: Alexis Sawyer MD Time: 05/14 606 Comment: GTS to see By: Alexis Sawyer MD Time: 05/14 1210 Comment: Surgical intensive care unit indication is her high-flow nasal cannula rate remains 8 liters/minute. She has been like this for several hours and we suspect it is a combination rhino virus as well as obesity hypoventilation syndrome. Discussed with our colleagues in Trauma and we believe the ICU might be the best destination. By: Bruno Davey MD Time: 05/14 1216 Comment: Case reviewed with trauma attending. Seems stable on current high flow oxygen so will attempt An observation unit (OU) admission. By: Bruno Davey MD Time: 05/14 1502 Comment: Brief attg note at sign out: superior and inf pubic rami fracture. OHS, rhinovirus. Now more agitated/delirious likely. Hypoxia, requiring as much as 10L O2. By: Berto Olivas MD Fustos, Skyler Pele, MD Resident 05/14/24 4400 ESS TANK TENDER * ED Pre-Arrival Note - Alea Summers RN - 05/14/2024 4:45 AM PROCESS TANK TENDER Pre-Arrival Note Patient being transferred from [place], [place] per md garcia and accepted by [facility] as level 3 for stable pelvic fracture s/p ground level fall at [place], hx of dementia, no head injury. Alea Summers, RN ESS TANK TENDER documented in this encounter Plan of Treatment Scheduled Orders Name Type Priority Associated Diagnoses Orde r Schedule ECG 12 lead ECG STAT Once for 1 Oc currences starting 05/14/2024 until 05/14/2024 ECG 12 lead ECG STAT As needed unt il discontinued starting 05/14/2024 documented as of this encounter Procedures Procedure Name Priority Date/Time Associated Diagnosis Comments POCT GLUCOSE DEVICE Routine 05/20/2024 5 :16 PM PROCESS TANK TENDER POCT GLUCOSE DEVICE Routine 05/20/2024 1 1:11 AM PROCESS TANK TENDER POCT GLUCOSE DEVICE Routine 05/20/2024 7 :52 AM PROCESS TANK TENDER EGFR Routine 05/19/2024 10:37 PM PROCESS TANK TENDER BASIC METABOLIC PANEL Routine 05/19/2024 10:37 PM PROCESS TANK TENDER POCT GLUCOSE DEVICE Routine 05/19/2024 9 :07 PM PROCESS TANK TENDER POCT GLUCOSE DEVICE Routine 05/19/2024 5 :15 PM PROCESS TANK TENDER POCT GLUCOSE DEVICE Routine 05/19/2024 1 1:11 AM PROCESS TANK TENDER POCT GLUCOSE DEVICE Routine 05/19/2024 7 :27 AM PROCESS TANK TENDER EGFR Routine 05/18/2024 9:10 PM PROCESS TANK TENDER CBC WITHOUT DIFFERENTIAL Routine 05/18/2024 9:10 PM PROCESS TANK TENDER PHOSPHORUS Routine 05/18/2024 9:10 PM PROCESS TANK TENDER MAGNESIUM Routine 05/18/2024 9:10 PM PROCESS TANK TENDER BASIC METABOLIC PANEL Routine 05/18/2024 9:10 PM PROCESS TANK TENDER POCT GLUCOSE DEVICE Routine 05/18/2024 8 :55 PM PROCESS TANK TENDER POCT GLUCOSE DEVICE Routine 05/18/2024 5 :27 PM PROCESS TANK TENDER POCT GLUCOSE DEVICE Routine 05/18/2024 1 1:33 AM PROCESS TANK TENDER POCT GLUCOSE DEVICE Routine 05/18/2024 8 :55 AM PROCESS TANK TENDER POCT GLUCOSE DEVICE Routine 05/17/2024 9 :46 PM PROCESS TANK TENDER EGFR Routine 05/17/2024 9:33 PM PROCESS TANK TENDER CBC WITHOUT DIFFERENTIAL Routine 05/17/2024 9:33 PM PROCESS TANK TENDER PHOSPHORUS Routine 05/17/2024 9:33 PM PROCESS TANK TENDER MAGNESIUM Routine 05/17/2024 9:33 PM PROCESS TANK TENDER BASIC METABOLIC PANEL Routine 05/17/2024 9:33 PM PROCESS TANK TENDER POCT GLUCOSE DEVICE Routine 05/17/2024 9 :02 PM PROCESS TANK TENDER POCT GLUCOSE DEVICE Routine 05/17/2024 5 :22 PM PROCESS TANK TENDER POCT GLUCOSE DEVICE Routine 05/17/2024 1 1:53 AM PROCESS TANK TENDER POCT GLUCOSE DEVICE Routine 05/17/2024 8 :45 AM PROCESS TANK TENDER POTASSIUM, WHOLE BLOOD Routine 05/16/2024 11:23 PM PROCESS TANK TENDER EGFR Routine 05/16/2024 8:26 PM PROCESS TANK TENDER POCT GLUCOSE DEVICE Routine 05/16/2024 8 :26 PM PROCESS TANK TENDER CBC WITHOUT DIFFERENTIAL Routine 05/16/2024 8:26 PM PROCESS TANK TENDER PHOSPHORUS Routine 05/16/2024 8:26 PM PROCESS TANK TENDER MAGNESIUM Routine 05/16/2024 8:26 PM PROCESS TANK TENDER BASIC METABOLIC PANEL Routine 05/16/2024 8:26 PM PROCESS TANK TENDER POCT GLUCOSE DEVICE Routine 05/16/2024 6 :10 PM PROCESS TANK TENDER POCT GLUCOSE DEVICE Routine 05/16/2024 1 :34 PM PROCESS TANK TENDER US CAROTIDS DUPLEX BILATERAL IP Routine 05/16/2024 1:16 PM PROCESS TANK TENDER POCT GLUCOSE DEVICE Routine 05/16/2024 8 :21 AM PROCESS TANK TENDER EGFR Routine 05/15/2024 9:06 PM PROCESS TANK TENDER CBC WITHOUT DIFFERENTIAL Routine 05/15/2024 9:06 PM PROCESS TANK TENDER PHOSPHORUS Routine 05/15/2024 9:06 PM PROCESS TANK TENDER MAGNESIUM Routine 05/15/2024 9:06 PM PROCESS TANK TENDER BASIC METABOLIC PANEL Routine 05/15/2024 9:06 PM PROCESS TANK TENDER POCT GLUCOSE DEVICE Routine 05/15/2024 8 :48 PM PROCESS TANK TENDER POCT GLUCOSE DEVICE Routine 05/15/2024 5 :34 PM PROCESS TANK TENDER POCT GLUCOSE DEVICE Routine 05/15/2024 1 2:51 PM PROCESS TANK TENDER POCT GLUCOSE DEVICE Routine 05/15/2024 7 :55 AM PROCESS TANK TENDER POTASSIUM, WHOLE BLOOD Timed 05/14/2024 11:06 PM PROCESS TANK TENDER EGFR Routine 05/14/2024 9:02 PM PROCESS TANK TENDER CBC WITHOUT DIFFERENTIAL Routine 05/14/2024 9:02 PM PROCESS TANK TENDER PHOSPHORUS Routine 05/14/2024 9:02 PM PROCESS TANK TENDER MAGNESIUM Routine 05/14/2024 9:02 PM PROCESS TANK TENDER BASIC METABOLIC PANEL Routine 05/14/2024 9:02 PM PROCESS TANK TENDER POCT GLUCOSE DEVICE Routine 05/14/2024 6 :10 PM PROCESS TANK TENDER XR PELVIS 3 OR MORE VIEWS ED 05/14/2024 10:46 AM PROCESS TANK TENDER RESPIRATORY PATHOGEN PANEL Routine 05/14/2024 10:[address] BODY OUTSIDE REFERENCE Routine 05/14/2024 10:12 AM PROCESS TANK TENDER URINALYSIS AND REFLEX TO MICROSCOPIC AND CULTURE STAT 05/14/2024 10:12 AM PROCESS TANK TENDER URINALYSIS, MICROSCOPIC ONLY STAT 05/14/2024 10:12 AM PROCESS TANK TENDER URINE CULTURE STAT 05/14/2024 10:12 AM PROCESS TANK TENDER XR CHEST 1 VIEW Critical/Life-T hreatening 05/14/2024 7:22 AM PROCESS TANK TENDER B CHECK SAMPLE STAT 05/14/2024 6:48 AM PROCESS TANK TENDER NEURO CT OUTSIDE CONSULT Routine 05/14/2024 6:09 AM PROCESS TANK TENDER NEURO CT OUTSIDE REFERENCE Routine 05/14/2024 6:[address] BODY OUTSIDE CONSULT Routine 05/14/2024 5:59 AM PROCESS TANK TENDER XR TRANSFER OF OUTSIDE FILMS Routine 05/14/2024 5:56 AM PROCESS TANK TENDER XR TRANSFER OF OUTSIDE FILMS Routine 05/14/2024 5:[address] BODY OUTSIDE REFERENCE Routine 05/14/2024 5:46 AM PROCESS TANK TENDER NEURO CT OUTSIDE REFERENCE Routine 05/14/2024 5:44 AM PROCESS TANK TENDER EGFR STAT 05/14/2024 5:35 AM PROCESS TANK TENDER DIFFERENTIAL AUTO STAT 05/14/2024 5:3 5 AM PROCESS TANK TENDER CBC WITH AUTO DIFFERENTIAL STAT 05/14/2024 5:35 AM PROCESS TANK TENDER APTT STAT 05/14/2024 5:35 AM PROCESS TANK TENDER PROTIME-INR STAT 05/14/2024 5:35 AM PROCESS TANK TENDER TYPE AND SCREEN STAT 05/14/2024 5:35 AM PROCESS TANK TENDER COMPREHENSIVE METABOLIC PANEL STAT 05/14/2024 5:35 AM PROCESS TANK TENDER documented in this encounter Results * POCT glucose (05/20/2024 5:16 PM PROCESS TANK TENDER) Glucose, POC 126 70 - 199 mg/dL Blood 05/20/2024 5:16 PM PROCESS TANK TENDER 05/20/2024 5:16 PM PROCESS TANK TENDER Raúl Sawant MD LAB POCT ORDERABLES - DEVICE Final Result Performing Organization Address [facility]/ZIP Co de Phone Number [facility] [place] [address] * POCT glucose (05/20/2024 11:11 AM PROCESS TANK TENDER) Glucose, POC 118 70 - 199 mg/dL Blood 05/20/2024 11:1 1 AM PROCESS TANK TENDER 05/20/2024 11:11 AM PROCESS TANK TENDER Raúl Sawant MD LAB POCT ORDERABLES - DEVICE Final Result Performing Organization Address [facility]/ZIP Co de Phone Number [facility] [place] [address] * POCT glucose (05/20/2024 7:52 AM PROCESS TANK TENDER) Glucose, POC 125 70 - 199 mg/dL Blood 05/20/2024 7:52 AM PROCESS TANK TENDER 05/20/2024 7:52 AM PROCESS TANK TENDER Raúl Sawant MD LAB POCT ORDERABLES - DEVICE Final Result [facility] [place] [address] * eGFR (05/19/2024 10:37 PM PROCESS TANK TENDER) eGFR 63 >=60 mL/min/1. 73 m2 Comment: [...] reviewed 2021. Blood 05/19/2024 10:3 7 PM PROCESS TANK TENDER 05/19/2024 10:53 PM PROCESS TANK TENDER Raúl Sawant MD LAB BLOOD ORDERABLES F inal Result Performing Organization Address City/[facility]/ZIP Co de Phone Number [facility] [place] [address] * (ABNORMAL) Basic metabolic panel (05/19/2024 10:37 PM PROCESS TANK TENDER) [facility] Sodium 138 135 - 145 mmol/L Potassium, pl 4.2 3.3 - 4.9 mmol/L [facility] Chloride 102 97 - 110 mmol/L [facility] CO2 24 22 - 32 mmol/L [facility] Anion gap 12 2 - 15 mmol/L [facility] BUN 25 6 - 25 mg/dL [facility] Creatinine 0.92 0.60 - 1.10 mg/dL [facility] Glucose 125 70 - 199 mg/dL [facility] Comment: Interpretive Data Fasting glucose >/= 126 [...] 2022. Calcium 8.4(L) 8.5 - 10.3 mg/dL [facility] Blood 05/19/2024 10:3 7 PM PROCESS TANK TENDER 05/19/2024 10:53 PM PROCESS TANK TENDER Raúl Sawant MD LAB BLOOD ORDERABLES F inal Result Performing Organization Address [facility]/ZIP Co de Phone Number [facility] [place] [address] * POCT glucose (05/19/2024 9:07 PM PROCESS TANK TENDER) Glucose, POC 114 70 - 199 mg/dL Blood 05/19/2024 9:07 PM PROCESS TANK TENDER 05/19/2024 9:07 PM PROCESS TANK TENDER Raúl Sawant MD LAB POCT ORDERABLES - DEVICE Final Result Performing Organization Address [facility] Co de Phone Number [facility] [employer] [address] * POCT glucose (05/19/2024 5:15 PM PROCESS TANK TENDER) Glucose, POC 121 70 - 199 mg/dL Blood 05/19/2024 5:15 PM PROCESS TANK TENDER 05/19/2024 5:15 PM PROCESS TANK TENDER Raúl Sawant MD LAB POCT ORDERABLES - DEVICE Final Result Performing Organization Address [facility] Co de Phone Number [facility] [employer] [place] [address] * POCT glucose (05/19/2024 11:11 AM PROCESS TANK TENDER) Glucose, POC 118 70 - 199 mg/dL Blood 05/19/2024 11:1 1 AM PROCESS TANK TENDER 05/19/2024 11:11 AM PROCESS TANK TENDER Raúl Sawant MD LAB POCT ORDERABLES - DEVICE Final Result Performing Organization Address [facility] Co de Phone Number [facility] [employer] [place] [address] * POCT glucose (05/19/2024 7:27 AM PROCESS TANK TENDER) Glucose, POC 112 70 - 199 mg/dL Blood 05/19/2024 7:27 AM PROCESS TANK TENDER 05/19/2024 7:27 AM PROCESS TANK TENDER us Raúl Sawant MD LAB POCT ORDERABLES - DEVICE Final Result Performing Organization Address [facility] Co de Phone Number [facility] [place] [address] * (ABNORMAL) eGFR (05/18/2024 9:10 PM PROCESS TANK TENDER) eGFR 53(L) >=60 mL/min/1. 73 m2 Comment: [...] last reviewed 2021. Blood 05/18/2024 9:10 PM PROCESS TANK TENDER 05/18/2024 9:26 PM PROCESS TANK TENDER us Raúl Sawant MD LAB BLOOD ORDERABLES F inal Result Performing Organization Address [facility] Co de Phone Number [facility] [place] [address] * (ABNORMAL) Basic metabolic panel (05/18/2024 9:10 PM PROCESS TANK TENDER) Pathologist [facility] Sodium 138 135 - 145 mmol/L Potassium, pl 4.4 3.3 - 4.9 mmol/L [facility] Chloride 105 97 - 110 mmol/L [facility] CO2 25 22 - 32 mmol/L [facility] Anion gap 8 2 - 15 mmol/L [facility] BUN 32(H) 6 - 25 mg/dL [facility] Creatinine 1.06 0.60 - 1.10 mg/dL [facility] Glucose 116 70 - 199 mg/dL [facility] Comment: Interpretive Data Fasting glucose >/= 126 [...] 2022. Calcium 8.8 8.5 - 10.3 mg/dL [facility] Blood 05/18/2024 9:10 PM PROCESS TANK TENDER 05/18/2024 9:26 PM PROCESS TANK TENDER Raúl Sawant MD LAB BLOOD ORDERABLES F inal Result [facility] [place] [address] * Phosphorus (05/18/2024 9:10 PM PROCESS TANK TENDER) Pathologist [facility] Phosphorus, pl 2.7 2.3 - 4.5 mg/dL Blood 05/18/2024 9:10 PM PROCESS TANK TENDER 05/18/2024 9:26 PM PROCESS TANK TENDER Raúl Sawant MD LAB BLOOD ORDERABLES F inal Result Performing Organization Address City/[facility]/ZIP Co de Phone Number [facility] [place] [employer] [place] [address] * Magnesium (05/18/2024 9:10 PM PROCESS TANK TENDER) [facility] Magnesium 2.5 1.4 - 2.5 mg/dL Blood 05/18/2024 9:10 PM PROCESS TANK TENDER 05/18/2024 9:26 PM PROCESS TANK TENDER Raúl Sawant MD LAB BLOOD ORDERABLES F inal Result Performing Organization Address [facility] de Phone Number [facility] [place] [address] * (ABNORMAL) CBC without differential (05/18/2024 9:10 PM PROCESS TANK TENDER) [facility] WBC 9.8 3.8 - 9.9 K/cumm Hgb 9.9(L) 11.9 - 15.5 g/dL [facility] Hct 30.8(L) 35.6 - 45.5 % [facility] Plt 226 150 - 400 K/cumm [facility] MPV 9.7 9.1 - 12.3 fL [facility] RBC 3.12(L) 3.90 - 5.20 M/cumm [facility] MCV 98.7(H) 81.3 - 96.4 fL [facility] MCH 31.7 27.1 - 33.3 pg [facility] MCHC 32.1(L) 32.3 - 35.7 g/dL [facility] RDW CV 14.4 11.1 - 14.9 % [facility] RDW SD 51.3(H) 35.7 - 48.1 fL [facility] NRBC abs 0.02(H) 0.00 - 0.01 K/cumm [facility] Blood 05/18/2024 9:10 PM PROCESS TANK TENDER 05/18/2024 9:26 PM PROCESS TANK TENDER Raúl Sawant MD LAB BLOOD ORDERABLES F inal Result Performing Organization Address City/[facility] Co de Phone Number [facility] [employer] [place] [address] * POCT glucose (05/18/2024 8:55 PM PROCESS TANK TENDER) Glucose, POC 110 70 - 199 mg/dL Blood 05/18/2024 8:55 PM PROCESS TANK TENDER 05/18/2024 8:55 PM PROCESS TANK TENDER Raúl Sawant MD LAB POCT ORDERABLES - DEVICE Final Result Performing Organization Address [facility] [place] [address] * POCT glucose (05/18/2024 5:27 PM PROCESS TANK TENDER) Glucose, POC 115 70 - 199 mg/dL Blood 05/18/2024 5:27 PM PROCESS TANK TENDER 05/18/2024 5:27 PM PROCESS TANK TENDER Raúl Sawant MD LAB POCT ORDERABLES - DEVICE Final Result Performing Organization Address [facility] Co de Phone Number [facility] [place] [address] * POCT glucose (05/18/2024 11:33 AM PROCESS TANK TENDER) Glucose, POC 139 70 - 199 mg/dL Blood 05/18/2024 11:3 3 AM PROCESS TANK TENDER 05/18/2024 11:33 AM PROCESS TANK TENDER Raúl Sawant MD LAB POCT ORDERABLES - DEVICE Final Result Performing Organization Address City/[facility]/ZIP Co de Phone Number [facility] [employer] [place] [address] * POCT glucose (05/18/2024 8:55 AM PROCESS TANK TENDER) Glucose, POC 146 70 - 199 mg/dL Blood 05/18/2024 8:55 AM PROCESS TANK TENDER 05/18/2024 8:55 AM PROCESS TANK TENDER Raúl Sawant MD LAB POCT ORDERABLES - DEVICE Final Result Performing Organization Address [facility] de Phone Number [facility] [place] [employer] [place] [address] * POCT glucose (05/17/2024 9:46 PM PROCESS TANK TENDER) Glucose, POC 144 70 - 199 mg/dL Blood 05/17/2024 9:46 PM PROCESS TANK TENDER 05/17/2024 9:46 PM PROCESS TANK TENDER Raúl Sawant MD LAB POCT ORDERABLES - DEVICE Final Result Performing Organization Address [facility] de Phone Number [facility] [place] [employer] [place] [address] * (ABNORMAL) eGFR (05/17/2024 9:33 PM PROCESS TANK TENDER) eGFR 51(L) >=60 mL/min/1. 73 m2 Comment: [...] last reviewed 2021. Blood 05/17/2024 9:33 PM PROCESS TANK TENDER 05/17/2024 9:54 PM PROCESS TANK TENDER Raúl Sawant MD LAB BLOOD ORDERABLES F inal Result [facility] [place] [address] * (ABNORMAL) Basic metabolic panel (05/17/2024 9:33 PM PROCESS TANK TENDER) Pathologist [facility] Sodium 136 135 - 145 mmol/L Potassium, pl 4.5 3.3 - 4.9 mmol/L [facility] Chloride 102 97 - 110 mmol/L [facility] CO2 23 22 - 32 mmol/L [facility] Anion gap 11 2 - 15 mmol/L [facility] BUN 40(H) 6 - 25 mg/dL [facility] Creatinine 1.09 0.60 - 1.10 mg/dL [facility] Glucose 124 70 - 199 mg/dL [facility] Comment: Interpretive Data Fasting glucose >/= 126 [...] 2022. Calcium 8.6 8.5 - 10.3 mg/dL [facility] Blood 05/17/2024 9:33 PM PROCESS TANK TENDER 05/17/2024 9:54 PM PROCESS TANK TENDER Result [facility] Raúl Sawant MD LAB BLOOD ORDERABLES F inal Result Performing Organization Address City/[facility] Co de Phone Number [facility] [place] [address] * Phosphorus (05/17/2024 9:33 PM PROCESS TANK TENDER) Pathologist [facility] Phosphorus, pl 3.3 2.3 - 4.5 mg/dL Blood 05/17/2024 9:33 PM PROCESS TANK TENDER 05/17/2024 9:54 PM PROCESS TANK TENDER Result [facility] Raúl Sawant MD LAB BLOOD ORDERABLES F inal Result Performing Organization Address [facility] Co de Phone Number [facility] [place] [employer] [place] [address] * Magnesium (05/17/2024 9:33 PM PROCESS TANK TENDER) [facility] Magnesium 2.4 1.4 - 2.5 mg/dL Blood 05/17/2024 9:33 PM PROCESS TANK TENDER 05/17/2024 9:54 PM PROCESS TANK TENDER Result [facility] Raúl Sawant MD LAB BLOOD ORDERABLES F inal Result Performing Organization Address City/[facility] Co de Phone Number [facility] [employer] [place] [address] * (ABNORMAL) CBC without differential (05/17/2024 9:33 PM PROCESS TANK TENDER) [facility] WBC 13.0(H) 3.8 - 9.9 K/cumm Hgb 10.8(L) 11.9 - 15.5 g/dL [facility] Hct 32.9(L) 35.6 - 45.5 % [facility] Plt 248 150 - 400 K/cumm [facility] MPV 10.1 9.1 - 12.3 fL [facility] RBC 3.39(L) 3.90 - 5.20 M/cumm [facility] MCV 97.1(H) 81.3 - 96.4 fL [facility] MCH 31.9 27.1 - 33.3 pg [facility] MCHC 32.8 32.3 - 35.7 g/dL [facility] RDW CV 13.9 11.1 - 14.9 % [facility] RDW SD 49.3(H) 35.7 - 48.1 fL [facility] NRBC abs 0.00 0.00 - 0.01 K/cumm [facility] Blood 05/17/2024 9:33 PM PROCESS TANK TENDER 05/17/2024 9:55 PM PROCESS TANK TENDER Raúl Sawant MD LAB BLOOD ORDERABLES F inal Result [facility] [place] [employer] [place] [address] * POCT glucose (05/17/2024 9:02 PM PROCESS TANK TENDER) Glucose, POC 177 70 - 199 mg/dL Blood 05/17/2024 9:02 PM PROCESS TANK TENDER 05/17/2024 9:02 PM PROCESS TANK TENDER Raúl Sawant MD LAB POCT ORDERABLES - DEVICE Final Result [facility] [place] [employer] [place] [address] * POCT glucose (05/17/2024 5:22 PM PROCESS TANK TENDER) Glucose, POC 143 70 - 199 mg/dL Blood 05/17/2024 5:22 PM PROCESS TANK TENDER 05/17/2024 5:22 PM PROCESS TANK TENDER Raúl Sawant MD LAB POCT ORDERABLES - DEVICE Final Result Performing Organization Address [facility] Co de Phone Number [facility] [place] [address] * POCT glucose (05/17/2024 11:53 AM PROCESS TANK TENDER) Glucose, POC 160 70 - 199 mg/dL Blood 05/17/2024 11:5 3 AM PROCESS TANK TENDER 05/17/2024 11:53 AM PROCESS TANK TENDER Raúl Sawant MD LAB POCT ORDERABLES - DEVICE Final Result Performing Organization Address [facility] de Phone Number [facility] [place] [address] * POCT glucose (05/17/2024 8:45 AM PROCESS TANK TENDER) Glucose, POC 135 70 - 199 mg/dL Blood 05/17/2024 8:45 AM PROCESS TANK TENDER 05/17/2024 8:45 AM PROCESS TANK TENDER Raúl Sawant MD LAB POCT ORDERABLES - DEVICE Final Result Performing Organization Address [facility] de Phone Number [facility] [place] [address] * Potassium, whole blood (05/16/2024 11:23 PM PROCESS TANK TENDER) Potassium, bld 4.7 3.3 - 4.9 mmol/L Blood 05/16/2024 11:2 3 PM PROCESS TANK TENDER 05/16/2024 11:29 PM PROCESS TANK TENDER Raúl Sawant MD LAB BLOOD ORDERABLES F inal Result Performing Organization Address [facility] Co de Phone Number [facility] [place] [address] * (ABNORMAL) eGFR (05/16/2024 8:26 PM PROCESS TANK TENDER) Pathologist [facility] eGFR 37(L) >=60 mL/min/1. 73 m2 Comment: [...] last reviewed 2021. Blood 05/16/2024 8:26 PM PROCESS TANK TENDER 05/16/2024 8:43 PM PROCESS TANK TENDER us Raúl Sawant MD LAB BLOOD ORDERABLES F inal Result [facility] [place] [address] * POCT glucose (05/16/2024 8:26 PM PROCESS TANK TENDER) [facility] Glucose, POC 148 70 - 199 mg/dL Blood 05/16/2024 8:26 PM PROCESS TANK TENDER 05/16/2024 8:26 PM PROCESS TANK TENDER Raúl Sawant MD LAB POCT ORDERABLES - DEVICE Final Result [facility] [place] [address] * (ABNORMAL) Basic metabolic panel (05/16/2024 8:26 PM PROCESS TANK TENDER) Pathologist [facility] Sodium 130(L) 135 - 145 mmol/L Potassium, pl 5.1(H) 3.3 - 4.9 mmol/L [facility] Comment:Hemolyzed; Potassium value may be falsely elevated by as much as 0.3-0.5 mmol/L. Suggest redraw and reanalysis. Chloride 98 97 - 110 mmol/L [facility] CO2 21(L) 22 - 32 mmol/L [facility] Anion gap 11 2 - 15 mmol/L [facility] BUN 49(H) 6 - 25 mg/dL [facility] Creatinine 1.43(H) 0.60 - 1.10 mg/dL [facility] Glucose 139 70 - 199 mg/dL [facility] Comment: Interpretive Data Fasting glucose >/= 126 [...] 2022. Calcium 8.3(L) 8.5 - 10.3 mg/dL [facility] Blood 05/16/2024 8:26 PM PROCESS TANK TENDER 05/16/2024 8:43 PM PROCESS TANK TENDER Raúl Sawant MD LAB BLOOD ORDERABLES F inal Result Performing Organization Address [facility] Co de Phone Number [facility] [place] [address] * Phosphorus (05/16/2024 8:26 PM PROCESS TANK TENDER) [facility] Phosphorus, pl 3.9 2.3 - 4.5 mg/dL Blood 05/16/2024 8:26 PM PROCESS TANK TENDER 05/16/2024 8:43 PM PROCESS TANK TENDER Raúl Sawant MD LAB BLOOD ORDERABLES F inal Result Performing Organization Address [facility] de Phone Number [facility] [place] [address] * Magnesium (05/16/2024 8:26 PM PROCESS TANK TENDER) [facility] Magnesium 2.5 1.4 - 2.5 mg/dL Blood 05/16/2024 8:26 PM PROCESS TANK TENDER 05/16/2024 8:43 PM PROCESS TANK TENDER Result [facility] Raúl Sawant MD LAB BLOOD ORDERABLES F inal Result Performing Organization Address [facility] de Phone Number [facility] [place] [address] * (ABNORMAL) CBC without differential (05/16/2024 8:26 PM PROCESS TANK TENDER) [facility] WBC 14.3(H) 3.8 - 9.9 K/cumm Hgb 10.2(L) 11.9 - 15.5 g/dL [facility] Hct 30.8(L) 35.6 - 45.5 % [facility] Plt 268 150 - 400 K/cumm [facility] MPV 10.4 9.1 - 12.3 fL [facility] RBC 3.22(L) 3.90 - 5.20 M/cumm [facility] MCV 95.7 81.3 - 96.4 fL [facility] MCH 31.7 27.1 - 33.3 pg [facility] MCHC 33.1 32.3 - 35.7 g/dL [facility] RDW CV 14.1 11.1 - 14.9 % [facility] RDW SD 49.5(H) 35.7 - 48.1 fL [facility] NRBC abs 0.00 0.00 - 0.01 K/cumm [facility] Blood 05/16/2024 8:26 PM PROCESS TANK TENDER 05/16/2024 8:43 PM PROCESS TANK TENDER Raúl Sawant MD LAB BLOOD ORDERABLES F inal Result Performing Organization Address City/[facility] Co de Phone Number [facility] [place] [employer] [place] [address] * POCT glucose (05/16/2024 6:10 PM PROCESS TANK TENDER) Glucose, POC 161 70 - 199 mg/dL Blood 05/16/2024 6:10 PM PROCESS TANK TENDER 05/16/2024 6:10 PM PROCESS TANK TENDER Raúl Sawant MD LAB POCT ORDERABLES - DEVICE Final Result Performing Organization Address [facility] Co de Phone Number [facility] [place] [employer] [place] [address] * POCT glucose (05/16/2024 1:34 PM PROCESS TANK TENDER) Glucose, POC 163 70 - 199 mg/dL Blood 05/16/2024 1:34 PM PROCESS TANK TENDER 05/16/2024 1:34 PM PROCESS TANK TENDER Raúl Sawant MD LAB POCT ORDERABLES - DEVICE Final Result Performing Organization Address City/[facility]/ZIP Co de Phone Number [facility] Department [place] [employer] [place] [address] * US Carotids Duplex Bilateral (05/16/2024 1:16 PM PROCESS TANK TENDER) Anatomical Region Laterality Modality Vascular Bilateral Ultrasound 05/16/2024 11:5 7 AM PROCESS TANK TENDER Narrative 05/18/2024 12:28 AM PROCESS TANK TENDER [facility] - Department of Vascular Surgery, Vascular Laboratory [address] [place] [address] Carotid Duplex Ultrasound Report Patient Name: INDY VALDEZ : 1940 (83y 10m) Study Date: 05/16/2024 11:57:01 AM Gender: F Tech: [place] Location: [id number] Ref Provider: RAÚL SAWANT Quality: Adequate Order Provider: RAÚL SAWANT ?? PROCEDURES: Carotid Report: Carotid duplex [...] PSV ?60 cm/sec - ?? FINDINGS: Performing Felt Hat Inspector And Packer: Batsheva Kohli RVT. Rt Common Carotid Artery: [...] Nii Wilson MD FACS 05/18/2024 12:27:58 AM PROCESS TANK TENDER Procedure Note Nii Wilson MD - 05/18/2024 [facility] - Department of Vascular Surgery,Vascular Laboratory [address] [place] [address] Carotid Duplex Ultrasound Report Patient Name: INDY VALDEZ : 1940 (83y 10m) Study Date: 05/16/2024 11:57:01 AM Gender: F Tech: [place] Location: [id number] Ref Provider: RAÚL SAWANT Quality: Adequate Order Provider: RAÚL SAWANT PROCEDURES: Carotid Report: Carotid duplex examination [...] RT VERT PSV 60cm/sec - FINDINGS: Performing Felt Hat Inspector And Packer: Batsheva Kohli RVT. Rt Common Carotid Artery: [...] above. Electronically Signed By: Nii Wilson MD [facility] 05/18/2024 12:27:58 AM PROCESS TANK TENDER Raúl Sawant MD IM US PROCEDURES Chanelle l Result * POCT glucose (05/16/2024 8:21 AM PROCESS TANK TENDER) Glucose, POC 138 70 - 199 mg/dL Blood 05/16/2024 8:21 AM PROCESS TANK TENDER 05/16/2024 8:21 AM PROCESS TANK TENDER Raúl Sawant MD LAB POCT ORDERABLES - DEVICE Final Result Performing Organization Address City/State/[facility] Co pr Phone Number [facility] [place] [address] * (ABNORMAL) eGFR (05/15/2024 9:06 PM PROCESS TANK TENDER) eGFR 35(L) >=60 mL/min/1. 73 m2 Comment: [...] last reviewed 2021. Blood 05/15/2024 9:06 PM PROCESS TANK TENDER 05/15/2024 9:34 PM PROCESS TANK TENDER Raúl Sawant MD LAB BLOOD ORDERABLES F inal Result [facility] [place] [address] * (ABNORMAL) Basic metabolic panel (05/15/2024 9:06 PM PROCESS TANK TENDER) Sodium 137 135 - 145 mmol/L Potassium, pl 5.1(H) 3.3 - 4.9 mmol/L [facility] Chloride 103 97 - 110 mmol/L [facility] CO2 22 22 - 32 mmol/L [facility] Anion gap 12 2 - 15 mmol/L [facility] BUN 50(H) 6 - 25 mg/dL [facility] Creatinine 1.50(H) 0.60 - 1.10 mg/dL [facility] Glucose 164 70 - 199 mg/dL [facility] Comment: Interpretive Data Fasting glucose >/= 126 [...] 2022. Calcium 8.7 8.5 - 10.3 mg/dL [facility] Blood 05/15/2024 9:06 PM PROCESS TANK TENDER 05/15/2024 9:34 PM PROCESS TANK TENDER Raúl Sawant MD LAB BLOOD ORDERABLES F inal Result [facility] [place] [address] * Phosphorus (05/15/2024 9:06 PM PROCESS TANK TENDER) Phosphorus, pl 3.7 2.3 - 4.5 mg/dL Blood 05/15/2024 9:06 PM PROCESS TANK TENDER 05/15/2024 9:34 PM PROCESS TANK TENDER Raúl Sawant MD LAB BLOOD ORDERABLES F inal Result Performing Organization Address City/[facility] Co de Phone Number [facility] [place] [employer] [place] [address] * Magnesium (05/15/2024 9:06 PM PROCESS TANK TENDER) [facility] Magnesium 2.3 1.4 - 2.5 mg/dL Blood 05/15/2024 9:06 PM PROCESS TANK TENDER 05/15/2024 9:34 PM PROCESS TANK TENDER Raúl Sawant MD LAB BLOOD ORDERABLES F inal Result Performing Organization Address [facility] de Phone Number [facility] [place] [employer] [place] [address] * (ABNORMAL) CBC without differential (05/15/2024 9:06 PM PROCESS TANK TENDER) [facility] WBC 14.8(H) 3.8 - 9.9 K/cumm Hgb 10.8(L) 11.9 - 15.5 g/dL [facility] Hct 33.0(L) 35.6 - 45.5 % [facility] Plt 224 150 - 400 K/cumm [facility] MPV 9.9 9.1 - 12.3 fL [facility] RBC 3.44(L) 3.90 - 5.20 M/cumm [facility] MCV 95.9 81.3 - 96.4 fL [facility] MCH 31.4 27.1 - 33.3 pg [facility] MCHC 32.7 32.3 - 35.7 g/dL [facility] RDW CV 14.1 11.1 - 14.9 % [facility] RDW SD 50.0(H) 35.7 - 48.1 fL [facility] NRBC abs 0.00 0.00 - 0.01 K/cumm [facility] Blood 05/15/2024 9:06 PM PROCESS TANK TENDER 05/15/2024 9:29 PM PROCESS TANK TENDER Result [facility] Raúl Sawant MD LAB BLOOD ORDERABLES F inal Result Performing Organization Address [facility] Co de Phone Number [facility] [employer] [place] [address] * POCT glucose (05/15/2024 8:48 PM PROCESS TANK TENDER) Glucose, POC 162 70 - 199 mg/dL Blood 05/15/2024 8:48 PM PROCESS TANK TENDER 05/15/2024 8:48 PM PROCESS TANK TENDER Result [facility] Raúl Sawant MD LAB POCT ORDERABLES - DEVICE Final Result Performing Organization Address [facility] Co de Phone Number [facility] [employer] [place] [address] * POCT glucose (05/15/2024 5:34 PM PROCESS TANK TENDER) Glucose, POC 138 70 - 199 mg/dL Blood 05/15/2024 5:34 PM PROCESS TANK TENDER 05/15/2024 5:34 PM PROCESS TANK TENDER Result [facility] Raúl Sawant MD LAB POCT ORDERABLES - DEVICE Final Result Performing Organization Address City/[facility] Co de Phone Number [facility] [employer] [place] [address] * POCT glucose (05/15/2024 12:51 PM PROCESS TANK TENDER) Glucose, POC 138 70 - 199 mg/dL Blood 05/15/2024 12:5 1 PM PROCESS TANK TENDER 05/15/2024 12:51 PM PROCESS TANK TENDER Result [facility] Raúl Sawant MD LAB POCT ORDERABLES - DEVICE Final Result Performing Organization Address [facility] de Phone Number [facility] [place] [employer] [place] [address] * (ABNORMAL) POCT glucose (05/15/2024 7:55 AM PROCESS TANK TENDER) Pathologist [facility] Glucose, POC 276(H) 70 - 199 mg/dL Blood 05/15/2024 7:55 AM PROCESS TANK TENDER 05/15/2024 7:55 AM PROCESS TANK TENDER Raúl Sawant MD LAB POCT ORDERABLES - DEVICE Final Result Performing Organization Address [facility] de Phone Number [facility] [place] [employer] [place] [address] * (ABNORMAL) Potassium, whole blood (05/14/2024 11:06 PM PROCESS TANK TENDER) [facility] Potassium, bld 5.0(H) 3.3 - 4.9 mmol/L Blood 05/14/2024 11:0 6 PM PROCESS TANK TENDER 05/14/2024 11:18 PM PROCESS TANK TENDER Result [facility] Raúl Sawant MD LAB BLOOD ORDERABLES F inal Result Performing Organization Address [facility] de Phone Number [facility] [place] [employer] [place] [address] * (ABNORMAL) eGFR (05/14/2024 9:02 PM PROCESS TANK TENDER) [facility] eGFR 31(L) >=60 mL/min/1. 73 m2 [...] last reviewed 2021. Blood 05/14/2024 9:02 PM PROCESS TANK TENDER 05/14/2024 9:24 PM PROCESS TANK TENDER us Raúl Sawant MD LAB BLOOD ORDERABLES F inal Result [facility] [place] [address] * (ABNORMAL) Basic metabolic panel (05/14/2024 9:02 PM PROCESS TANK TENDER) Sodium 135 135 - 145 mmol/L Potassium, pl 5.1(H) 3.3 - 4.9 mmol/L [facility] Chloride 103 97 - 110 mmol/L [facility] CO2 20(L) 22 - 32 mmol/L [facility] Anion gap 12 2 - 15 mmol/L [facility] BUN 44(H) 6 - 25 mg/dL [facility] Creatinine 1.63(H) 0.60 - 1.10 mg/dL [facility] Glucose 183 70 - 199 mg/dL [facility] Comment: Interpretive Data Fasting glucose >/= 126 [...] 2022. Calcium 8.5 8.5 - 10.3 mg/dL [facility] Blood 05/14/2024 9:02 PM PROCESS TANK TENDER 05/14/2024 9:24 PM PROCESS TANK TENDER Raúl Sawant MD LAB BLOOD ORDERABLES F inal Result Performing Organization Address City/[facility] Co de Phone Number [facility] [place] [address] * (ABNORMAL) Phosphorus (05/14/2024 9:02 PM PROCESS TANK TENDER) Phosphorus, pl 5.1(H) 2.3 - 4.5 mg/dL Blood 05/14/2024 9:02 PM PROCESS TANK TENDER 05/14/2024 9:24 PM PROCESS TANK TENDER Result [facility] Raúl Sawant MD LAB BLOOD ORDERABLES F inal Result Performing Organization Address [facility] Co de Phone Number [facility] [place] [address] * Magnesium (05/14/2024 9:02 PM PROCESS TANK TENDER) Magnesium 2.2 1.4 - 2.5 mg/dL Blood 05/14/2024 9:02 PM PROCESS TANK TENDER 05/14/2024 9:24 PM PROCESS TANK TENDER Raúl Sawant MD LAB BLOOD ORDERABLES F inal Result Performing Organization Address City/[facility] Co de Phone Number [facility] [place] [address] * (ABNORMAL) CBC without differential (05/14/2024 9:02 PM PROCESS TANK TENDER) WBC 12.7(H) 3.8 - 9.9 K/cumm Hgb 11.8(L) 11.9 - 15.5 g/dL [facility] Hct 36.5 35.6 - 45.5 % [facility] Plt 221 150 - 400 K/cumm [facility] MPV 10.1 9.1 - 12.3 fL [facility] RBC 3.73(L) 3.90 - 5.20 M/cumm [facility] MCV 97.9(H) 81.3 - 96.4 fL [facility] MCH 31.6 27.1 - 33.3 pg [facility] MCHC 32.3 32.3 - 35.7 g/dL [facility] RDW CV 14.4 11.1 - 14.9 % [facility] RDW SD 52.1(H) 35.7 - 48.1 fL [facility] NRBC abs 0.00 0.00 - 0.01 K/cumm [facility] Blood 05/14/2024 9:02 PM PROCESS TANK TENDER 05/14/2024 9:24 PM PROCESS TANK TENDER us Raúl Sawant MD LAB BLOOD ORDERABLES F inal Result Performing Organization Address City/[facility]/ZIP Co de Phone Number [facility] [place] [address] * POCT glucose (05/14/2024 6:10 PM PROCESS TANK TENDER) Pathologist [facility] Glucose, POC 148 70 - 199 mg/dL Blood 05/14/2024 6:10 PM PROCESS TANK TENDER 05/14/2024 6:10 PM PROCESS TANK TENDER Raúl Sawant MD LAB POCT ORDERABLES - DEVICE Final Result Performing Organization Address [facility]/ZIP Co de Phone Number [facility] [place] [address] * XR Pelvis 3 or More Views (05/14/2024 10:46 AM PROCESS TANK TENDER) Anatomical Region Laterality Modality Pelvis, Body N/A Computed Radiogr aphy 05/14/2024 11:1 9 AM PROCESS TANK TENDER Impressions 05/14/2024 11:19 AM PROCESS TANK TENDER There are fractures of the right superior and inferior pubic ramus as well as the right sacral ala. ??Contrast is noted within the urinary bladder. No definite extraluminal contrast. ??If there is concern for bladder injury, consider CT cystogram. Electronically signed by: Kendal Braun M.D. Narrative 05/14/2024 11:19 AM PROCESS TANK TENDER EXAMINATION: XR PELVIS 3 OR MORE VIEWS [...] by: Kendal Braun M.D. Alexis Sawyer MD IM XR PROCEDURES Chanelle l Result * (ABNORMAL) Respiratory pathogen panel Nasopharyngeal (05/14/2024 10:15 AM PROCESS TANK TENDER) Influenza A RNA Not Detected Not Detected Influenza B RNA Not Detected Not Detected [facility] RSV RNA Not Detected Not Detected [facility] COVID-19 RNA Not Detected Not Detected [facility] Coronavirus 229E RNA Not Detected Not Detected [facility] Coronavirus HKU1 RNA Not Detected Not Detected [facility] Coronavirus NL63 RNA Not Detected Not Detected [facility] Coronavirus OC43 RNA Not Detected Not Detected [facility] Adenovirus DNA Not Detected Not Detected [facility] Metapneumovirus RNA Not Detected Not Detected [facility] Rhinovirus/Enterov irus RNA Detected(A) Not Detected [facility] Parainfluenza 1 RNA Not Detected Not Detected [facility] Parainfluenza 2 RNA Not Detected Not Detected [facility] Parainfluenza 3 RNA Not Detected Not Detected [facility] Parainfluenza 4 RNA Not Detected Not Detected [facility] B. pertussis DNA Not Detected Not Detected [facility] B. parapertussis DNA Not Detected Not Detected [facility] C. pneumoniae DNA Not Detected Not Detected [facility] M. pneumoniae DNA Not Detected Not Detected [facility] Nasopharyngeal 05/14/2024 10 :15 AM PROCESS TANK TENDER 05/14/2024 10:43 AM PROCESS TANK TENDER Narrative [facility] - 05/14/2024 11:35 AM PROCESS TANK TENDER Is the Patient experiencing symptoms consistent with COVID?->Yes Surveillance testing for transplant patient?->No ??Interpretive Data The [employer] FilmArray Respiratory Panel (RP2.1) assay is a [...] assay has FDA clearance for testing of TEACHER LEARNING DISABLED swabs. ??The performance of additional specimen types has been assessed by the performing laboratory. ??The performance characteristics of this assay have been determined by [facility] Infectious Disease [facility]. Current interpretive data was last revised on 22. us Frandy Ferreira MD LAB MICROBIOLOGY - GENERAL ORDERABLES Final Result Performing Organization Address City/[facility] Co de Phone Number [facility] [place] [address] * CT Body Outside Reference (05/14/2024 10:12 AM PROCESS TANK TENDER) Impressions [facility] - 05/14/2024 10:12 AM PROCESS TANK TENDER These images are for Reference purposes only and have not been reviewed by [facility]. ??There will be no report generated by a [facility] Radiologist. Narrative [facility] - 05/14/2024 10:12 AM PROCESS TANK TENDER EXAMINATION: ??Images For Reference Purposes Only us Frandy Ferreira MD IMG CT PROCEDURES Final Re sult Performing Organization Address City/[facility] Co de Phone Number [email or web address] * (ABNORMAL) Urine culture Urine (05/14/2024 10:12 AM PROCESS TANK TENDER) Report Final Report: Greater than or equal to 100,000 colonies/mL of Klebsiella pneumoniae (.) Organism KLEBSIELLA PNEUMONIAE [facility] Urine 05/14/2024 10:1 2 AM PROCESS TANK TENDER 05/14/2024 5:03 PM PROCESS TANK TENDER Narrative [facility] - 05/16/2024 12:42 PM PROCESS TANK TENDER Urine culture reflexed based upon urinalysis results. Testing performed by [facility] ([phone]) Organism Antibiotic Method Susceptibility Klebsiella pneumoniae Ampicillin [...] ERAL ORDERABLES Final Result Performing Organization Address [facility] Co de Phone Number [facility] [place] [address] * (ABNORMAL) Urinalysis, microscopic only (05/14/2024 10:12 AM PROCESS TANK TENDER) WBC, ur >50(A) 0 - 5 /HPF RBC, ur 11-20(A) 0 - 2 /HPF [facility] Epithelial cells, squamous, ur 1-5 0 - 5 /HPF [facility] Bacteria, ur 1+(A) [facility] Culture Reflex Comment Reflex to urine culture will be performed. [facility] Urine 05/14/2024 10:1 2 AM PROCESS TANK TENDER 05/14/2024 10:17 AM PROCESS TANK TENDER Alexis Sawyer MD LAB URINE ORDERABLES F inal Result Performing Organization Address [facility] Co de Phone Number [facility] Department [place] [address] * (ABNORMAL) Urinalysis reflex to microscopic and culture Urine (05/14/2024 10:12 AM PROCESS TANK TENDER) Color, ur Straw Yellow Clarity, ur Cloudy(A) Clear [facility] Specific gravity, ur 1.014 1.003 - 1.030 [facility] pH, urine 6.0 [facility] Comment: Interpretive Data ? Urine pH is affected by diet, medications, systemic acid-base disturbances, and renal tubular function. ??pH may affect urinary stone formation. ??For example, urine pH below 6.0 may help reduce the tendency for calcium phosphate stones and pH greater than 6.0 may reduce the tendency for uric acid stone formation. Source: [facility] [employer] Current Interpretive Data was last revised on 2017 Protein, ur ql Negative Negative [facility] Glucose, ur ql Negative Negative [facility] Ketones, ur Negative Negative [facility] Bilirubin, ur Negative Negative [facility] Blood, ur Negative Negative [facility] Urobilinogen, ur <2.0 <2.0 mg/dL [facility] Nitrite, ur Negative Negative [facility] Leukocyte esterase, ur 3+(A) Negative [facility] UA reflex comment Reflex to microscopic UA will be performed. [facility] Urine 05/14/2024 10:1 2 AM PROCESS TANK TENDER 05/14/2024 10:17 AM PROCESS TANK TENDER us Alexis Sawyer MD LAB MICROBIOLOGY - GEN ERAL ORDERABLES Final Result [facility] Department [place] [address] * XR Chest 1 Vw Portable (05/14/2024 7:22 AM PROCESS TANK TENDER) Anatomical Region Laterality Modality Body, Chest N/A Computed Radiogr aphy 05/14/2024 9:44 AM PROCESS TANK TENDER Impressions 05/14/2024 10:36 AM PROCESS TANK TENDER No prior examinations available for comparison. Correlation [...] Kendal Braun M.D. Narrative 05/14/2024 10:36 AM PROCESS TANK TENDER EXAMINATION: 1 view chest radiograph Procedure Note [...] Result * Check Sample (05/14/2024 6:48 AM PROCESS TANK TENDER) ABO Rh O Positive [facility] OTHER 05/14/2024 6:48 AM PROCESS TANK TENDER 05/14/2024 6:55 AM PROCESS TANK TENDER us Kenneth Vallecillo MD LAB BLOOD ORDERABLES Final Re sult [facility] [place] [address] [facility] * Neuro CT Outside Consult (05/14/2024 6:09 AM PROCESS TANK TENDER) Anatomical Region Laterality Modality N/A Computed Tomogra phy 05/14/2024 6:35 AM PROCESS TANK TENDER Impressions 05/14/2024 9:34 AM PROCESS TANK TENDER No acute cervical spine fracture. The findings, conclusions and recommendations within this report do not replace the initial findings, conclusions ??and recommendations made at the facility where the study was performed based upon the imaging and clinical condition at that time. ??Comparison with the prior report and clinical history is necessary. ??The provided images may or may not represent the ambler source data set and thus may contain changes that may lower the accuracy of this second-opinion interpretation. Dictated by: Virgilio Dempsey MD The radiology attending physician has personally reviewed this study, and had reviewed and/or edited this written report and agrees with it. Electronically signed by: Evelyne Saleh M.D. Narrative 05/14/2024 9:34 AM PROCESS TANK TENDER EXAMINATION: RADIOLOGY CONSULTATION ON OUTSIDE IMAGING STUDY STUDY INITIALLY PERFORMED: 05/14/2024 at outside [facility]. TYPE OF STUDY: Multiple CT images [...] images may or may not represent the ambler source data set and thus may contain changes that may lower the accuracy of this second-opinion interpretation. Dictated by: Virgilio Dempsey MD The radiology attending physician has personally reviewed this study, and had reviewed and/or edited this written report and agrees with it. Electronically signed by: Evelyne Saleh M.D. Alexis Sawyer MD [facility] CT PROCEDURES Chanelle l Result * Neuro CT Outside Reference (05/14/2024 6:04 AM PROCESS TANK TENDER) Impressions [facility] - 05/14/2024 6:04 AM PROCESS TANK TENDER These images are for Reference purposes only and have not been reviewed by [facility]. ??There will be no report generated by a [facility] Radiologist. Narrative [facility] - 05/14/2024 6:04 AM PROCESS TANK TENDER EXAMINATION: ??Images For Reference Purposes Only Alexis Sawyer MD IM CT PROCEDURES Chanelle l Result [facility] * CT Body Outside Consult (05/14/2024 5:59 AM PROCESS TANK TENDER) Anatomical Region Laterality Modality Body N/A Computed Tomogra phy 05/14/2024 6:16 AM PROCESS TANK TENDER Impressions 05/14/2024 10:03 AM PROCESS TANK TENDER This study was initially nominated as a consult on outside images via Outside Image Sharing Service. However, a consult was not performed because no images were included in the packet. ??If interpretation is desired, uploaded images appropriately and resubmitted for consultation. Accordingly, there will be no separate report of this study generated by a [facility] Radiologist. Dictated by: Kavitha Ba MD The radiology attending physician has personally reviewed this study, and had reviewed and/or edited this written report and agrees with it. Electronically signed by: Kendal Braun M.D. Narrative 05/14/2024 10:03 AM PROCESS TANK TENDER EXAMINATION: ??CHANGE CONSULT ON OUTSIDE IMAGES TO [...] report of this study generated by a [facility] Radiologist. Dictated by: Kavitha Ba MD The radiology attending physician has personally reviewed this study, and had reviewed and/or edited this written report and agrees with it. Electronically signed by: Kendal Braun M.D. Alexis Sawyer MD IMG CT PROCEDURES Chanelle l Result * XR Outside Reference (05/14/2024 5:56 AM PROCESS TANK TENDER) Impressions [facility] - 05/14/2024 5:56 AM PROCESS TANK TENDER These images are for Reference purposes only and have not been reviewed by [facility]. ??There will be no report generated by a [facility] Radiologist. Narrative [facility] - 05/14/2024 5:56 AM PROCESS TANK TENDER EXAMINATION: ??Images For Reference Purposes Only Alexis Sawyer MD IMG XR PROCEDURES Chanelle l Result Performing Organization Address [facility] Co de Phone Number [email or web address] * XR Outside Reference (05/14/2024 5:48 AM PROCESS TANK TENDER) Impressions [facility] - 05/14/2024 5:48 AM PROCESS TANK TENDER These images are for Reference purposes only and have not been reviewed by [facility]. ??There will be no report generated by a [facility] Radiologist. Narrative [facility] - 05/14/2024 5:48 AM PROCESS TANK TENDER EXAMINATION: ??Images For Reference Purposes Only Result [facility] Alexis Sawyer MD IMG XR PROCEDURES Chanelle l Result Performing Organization Address [facility] de Phone Number [email or web address] * CT Body Outside Reference (05/14/2024 5:46 AM PROCESS TANK TENDER) Impressions [facility] - 05/14/2024 5:46 AM PROCESS TANK TENDER These images are for Reference purposes only and have not been reviewed by [facility]. ??There will be no report generated by a [facility] Radiologist. Narrative [facility] - 05/14/2024 5:46 AM PROCESS TANK TENDER EXAMINATION: ??Images For Reference Purposes Only Result [facility] Alexis Sawyer MD IMG CT PROCEDURES Chanelle l Result Performing Organization Address [facility] de Phone Number [email or web address] * Neuro CT Outside Reference (05/14/2024 5:44 AM PROCESS TANK TENDER) Impressions [facility] - 05/14/2024 5:44 AM PROCESS TANK TENDER These images are for Reference purposes only and have not been reviewed by [facility]. ??There will be no report generated by a [facility] Radiologist. Narrative [facility] - 05/14/2024 5:44 AM PROCESS TANK TENDER EXAMINATION: ??Images For Reference Purposes Only Result [facility] Alexis Sawyer MD IMG CT PROCEDURES Chanelle l Result [facility] * (ABNORMAL) eGFR (05/14/2024 5:35 AM PROCESS TANK TENDER) Pathologist [facility] eGFR 42(L) >=60 mL/min/1. 73 m2 Comment: [...] last reviewed 2021. Blood 05/14/2024 5:35 AM PROCESS TANK TENDER 05/14/2024 5:51 AM PROCESS TANK TENDER us Alexis Sawyer MD LAB BLOOD ORDERABLES F inal Result [facility] Department [place] [address] * (ABNORMAL) Differential, auto (05/14/2024 5:35 AM PROCESS TANK TENDER) Neutrophil abs 15.6(H) 1.5 - 6.5 K/cumm Imm gran abs 0.1 0.0 - 0.1 K/cumm [facility] Lymphocyte abs 1.6 0.8 - 3.3 K/cumm [facility] Monocyte abs 1.4(H) 0.2 - 0.8 K/cumm [facility] Eosinophil abs 0.1 0.0 - 0.5 K/cumm [facility] Basophil abs 0.1 0.0 - 0.1 K/cumm [facility] Neutrophil pct 83.1 % [facility] Comment: Interpretive Data Percent cell count reference ranges are not reported, since discordance with absolute values may lead to misinterpretation of CBC data. Current Interpretive Data was last revised on 2017. Imm gran pct 0.6 % [facility] Comment: Interpretive Data Percent cell count reference ranges are not reported, since discordance with absolute values may lead to misinterpretation of CBC data. Current Interpretive Data was last revised on 2017. Lymphocyte pct 8.3 % [facility] Comment: Interpretive Data Percent cell count reference ranges are not reported, since discordance with absolute values may lead to misinterpretation of CBC data. Current Interpretive Data was last revised on 2017. Monocyte pct 7.2 % [facility] Comment: Interpretive Data Percent cell count reference ranges are not reported, since discordance with absolute values may lead to misinterpretation of CBC data. Current Interpretive Data was last revised on 2017. Eosinophil pct 0.3 % [facility] Comment: Interpretive Data Percent cell count reference ranges are not reported, since discordance with absolute values may lead to misinterpretation of CBC data. Current Interpretive Data was last revised on 2017. Basophil pct 0.5 % [facility] Comment: Interpretive Data Percent cell count reference ranges are not reported, since discordance with absolute values may lead to misinterpretation of CBC data. Current Interpretive Data was last revised on 2017. Blood 05/14/2024 5:35 AM PROCESS TANK TENDER 05/14/2024 6:20 AM PROCESS TANK TENDER us Alexis Sawyer MD LAB BLOOD ORDERABLES F inal Result Performing Organization Address [facility] [place] [address] * Type and screen (05/14/2024 5:35 AM PROCESS TANK TENDER) Trey, indirect Negative ABO Rh O Positive [facility] Blood 05/14/2024 5:35 AM PROCESS TANK TENDER 05/14/2024 5:45 AM PROCESS TANK TENDER Narrative [facility] - 05/14/2024 6:53 AM PROCESS TANK TENDER Has the patient had Daratumumab or Isatuximab in the past 6 months?->Unknown Alexis Sawyer MD LAB BLOOD BANK TEST OR DERABLES Final Result Performing Organization Address [facility] [place] [address] * aPTT (05/14/2024 5:35 AM PROCESS TANK TENDER) aPTT 32 28 - 38 sec Comment: Interpretive Data Heparin therapeutic range: 66.0 - 100.0 seconds. Range based on correlation with therapeutic heparin activity range of 0.3 - 0.7 Units/mL. Current interpretive data was last revised on 2023. Blood 05/14/2024 5:35 AM PROCESS TANK TENDER 05/14/2024 5:57 AM PROCESS TANK TENDER Alexis Sawyer MD LAB BLOOD ORDERABLES F inal Result Performing Organization Address [facility] de Phone Number [facility] [place] [address] * Protime-INR (05/14/2024 5:35 AM PROCESS TANK TENDER) PT 12.2 9.7 - 13.0 sec INR 1.13 0.90 - 1.20 [facility] Comment: Interpretive data Oral anticoagulant therapeutic ranges: Venous thromboembolism prophylaxis or treatment: 2.0-3.0 CARDIOLOGY Standard range: 2.0-3.0 High-intensity range: 2.5-3.5 Refer to indication-specific guidelines for appropriate target ranges for prosthetic heart valve replacement. Current interpretive data was last revised on 2019. Blood 05/14/2024 5:35 AM PROCESS TANK TENDER 05/14/2024 5:57 AM PROCESS TANK TENDER us Alexis Sawyer MD LAB BLOOD ORDERABLES F inal Result [facility] Department [place] [address] * (ABNORMAL) Comprehensive metabolic panel (05/14/2024 5:35 AM PROCESS TANK TENDER) Sodium 134(L) 135 - 145 mmol/L Potassium, pl 4.7 3.3 - 4.9 mmol/L [facility] Chloride 101 97 - 110 mmol/L [facility] CO2 23 22 - 32 mmol/L [facility] Anion gap 10 2 - 15 mmol/L [facility] BUN 34(H) 6 - 25 mg/dL [facility] Creatinine 1.29(H) 0.60 - 1.10 mg/dL [facility] Glucose 149 70 - 199 mg/dL [facility] Comment: Interpretive Data Fasting glucose >/= 126 [...] classification and Diagnosis of Diabetes Diabetes Care 2022; 46: S19-S40. Current interpretive data was last revised 2022. Calcium 8.8 8.5 - 10.3 mg/dL [facility] Bilirubin, total 0.7 0.1 - 1.2 mg/dL [facility] Protein, pl 7.3 6.5 - 8.5 g/[facility] Albumin 3.9 3.5 - 5.0 g/dL [facility] Alk phos 134(H) 40 - 130 Units/L [facility] ALT 29 7 - 45 Units/L [facility] AST 39 10 - 45 Units/L [facility] Blood 05/14/2024 5:35 AM PROCESS TANK TENDER 05/14/2024 5:51 AM PROCESS TANK TENDER Alexis Sawyer MD LAB BLOOD ORDERABLES F inal Result Performing Organization Address [facility] Co de Phone Number [facility] Department [place] [employer] [place] [address] * (ABNORMAL) CBC with auto differential (05/14/2024 5:35 AM PROCESS TANK TENDER) WBC 18.8(H) 3.8 - 9.9 K/cumm Hgb 12.6 11.9 - 15.5 g/dL [facility] Hct 38.6 35.6 - 45.5 % [facility] Plt 274 150 - 400 K/cumm [facility] MPV 9.8 9.1 - 12.3 fL [facility] RBC 3.96 3.90 - 5.20 M/cumm [facility] MCV 97.5(H) 81.3 - 96.4 fL [facility] MCH 31.8 27.1 - 33.3 pg [facility] MCHC 32.6 32.3 - 35.7 g/dL [facility] RDW CV 14.2 11.1 - 14.9 % [facility] RDW SD 51.6(H) 35.7 - 48.1 fL [facility] NRBC abs 0.00 0.00 - 0.01 K/cumm [facility] Blood 05/14/2024 5:35 AM PROCESS TANK TENDER 05/14/2024 6:20 AM PROCESS TANK TENDER Alexis Sawyer MD LAB BLOOD ORDERABLES F inal Result Performing Organization Address [facility]/ZIP Co de Phone Number [facility] [place] [address] documented in this encounter Visit Diagnoses Diagnosis Pubic ramus fracture, right, open, initial encounter (HCC)- Primary Fall, initial encounter Hypoxia Hypoxemia Rhinovirus Rhinovirus infection in conditions classified elsewhere and of unspecified site Pubic ramus fracture, right, closed, initial encounter (HCC) Atherosclerosis of both carotid arteries Hyperlipidemia Other and unspecified hyperlipidemia Hypothyroid Unspecified hypothyroidism 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) Possible syncopal fall Syncope and collapse Discharge planning issues Acute pain UTI (urinary tract infection) Urinary tract infection, site not specified Urinary retention Unspecified retention of urine documented in this encounter Admitting Diagnoses Diagnosis Pubic ramus fracture, right, open, initial encounter (HCC) documented in this encounter Administered Medications Inactive Administered Medications - up to 3 most recent administrations Medication Order MAR Action Action Date Dose Rate Site acetaminophen (TYLENOL) tablet 1,000 mg 1,000 mg, oral, Every 6 hours scheduled, First dose (after last modification) on 05/16/24 at 1200 Given 05/20/2024 5:35 PM PROCESS TANK TENDER 1,000 mg Given 05/20/2024 6:38 AM PROCESS TANK TENDER 1,000 mg Given 05/20/2024 12:07 AM PROCESS TANK TENDER 1,000 mg acetaminophen (TYLENOL) tablet 650 mg 650 mg, oral, Every 6 hours PRN, 1st line for pain, Starting on 05/14/24 at 1758 Given 05/16/2024 4:10 AM PROCESS TANK TENDER 650 mg Given 05/15/2024 9:04 PM PROCESS TANK TENDER 650 mg Given 05/15/2024 9:38 AM PROCESS TANK TENDER 650 mg amLODIPine (NORVASC) tablet 10 mg 10 mg, oral, Daily, First dose on 05/14/24 at 1830 Given 05/20/2024 8:29 AM PROCESS TANK TENDER 10 mg Given 05/19/2024 8:29 AM PROCESS TANK TENDER 10 mg Given 05/18/2024 9:01 AM PROCESS TANK TENDER 10 mg aspirin enteric coated tablet 81 mg 81 mg, oral, Daily, First dose on Thu05/18/24 at 0900, Do not crush, chew, cut, dissolve, open or otherwise manipulate tablet/capsule. Given 05/20/2024 8:29 AM PROCESS TANK TENDER 81 mg Given 05/19/2024 8:29 AM PROCESS TANK TENDER 81 mg Given 05/18/2024 9:01 AM PROCESS TANK TENDER 81 mg atorvastatin (LIPITOR) tablet 10 mg 10 mg, oral, Daily, First dose on 05/14/24 at 1830 Given 05/20/2024 8:29 AM PROCESS TANK TENDER 10 mg Given 05/19/2024 8:29 AM PROCESS TANK TENDER 10 mg Given 05/18/2024 9:01 AM PROCESS TANK TENDER 10 mg bisacodyL (DULCOLAX) suppository 10 mg 10 mg, rectal, Once, On Thu05/18/24 at 0730, For 1 dose, Indications: constipationIndications:constipat ion Given 05/18/2024 9:02 AM PROCESS TANK TENDER 10 mg bisacodyL (DULCOLAX) suppository 10 mg 10 mg, rectal, Once, On Obdulia 05/19/24 at 0700, For 1 dose, Indications: constipationIndications:constipat ion Given 05/19/2024 8:29 AM PROCESS TANK TENDER 10 mg Carrier Fluids for Secondary Infusion - 0.9% Sodium Chloride 30 mL, intravenous, As needed, For priming tubing and/or flushing, Starting on Thu05/17/24 at 2117, 0-250 ml/hr to flush line after IV infusions when no maintenance IV ordered. Infuse 30mL at the same rate as the secondary infusion. Run as primary IV, not intended for KVO. cefepime (MAXIPIME) 2,000 mg/20 mL in sterile water (premix) 2,000 mg 2,000 mg, intravenous, at 240 mL/hr, Administer over 5 Minutes, Every 12 hours scheduled, First dose on Thu05/14/24 at 0751, Indications: Pneumonia, Hospital AcquiredIndications:Pneumonia, Hospital Acquired New Bag 05/17/2024 8:53 AM PROCESS TANK TENDER 2,000 mg 240 mL/hr New Bag 05/16/2024 8:13 PM PROCESS TANK TENDER 2,000 mg 240 mL/hr New Bag 05/16/2024 8:28 AM PROCESS TANK TENDER 2,000 mg 240 mL/hr cephalexin (KEFLEX) capsule 250 mg 250 mg, oral, 3 times daily, First dose on Thu05/17/24 at 1400, For 5 days, Indications: Urinary Tract/Genitourinary InfectionIndications:Urinary Tract/Genitourinary Infection Given 05/20/2024 3:43 PM PROCESS TANK TENDER 250 mg Given 05/20/2024 8:29 AM PROCESS TANK TENDER 250 mg Given 05/19/2024 8:53 PM PROCESS TANK TENDER 250 mg cholecalciferol (VITAMIN D-3) capsule 1,000 Units 1,000 Units, oral, Daily, First dose on Obdulia 05/19/24 at 1415, Each capsule contains 1,000 units (25 mcg) of cholecalciferol. Given 05/20/2024 8:29 AM PROCESS TANK TENDER 1,000 Units Given 05/19/2024 2:01 PM PROCESS TANK TENDER 1,000 Units citalopram (CeleXA) tablet 20 mg 20 mg, oral, Daily, First dose on 05/14/24 at 1830 Given 05/20/2024 8:30 AM PROCESS TANK TENDER 20 mg Given 05/19/2024 8:29 AM PROCESS TANK TENDER 20 mg Given 05/18/2024 9:02 AM PROCESS TANK TENDER 20 mg cyclobenzaprine (FLEXERIL) tablet 10 mg 10 mg, oral, 3 times daily PRN, muscle spasms, Starting on 05/14/24 at 1758, Indications: Muscle SpasmIndications:Muscle Spasm Given 05/15/2024 6:05 AM PROCESS TANK TENDER 10 mg Given 05/14/2024 6:10 PM PROCESS TANK TENDER 10 mg dextrose (D10W) 10% bolus 250 mL 250 mL, intravenous, at 1,000 mL/hr, Administer over 15 Minutes, Every 15 min PRN, blood glucose less than 70 mg/dL and UNABLE to swallow/take PO glucose/juice., Starting on 05/15/24 at 0536, After treatment for hypoglycemia, recheck BG followed by treatment every 15 minutes until the BG is greater than 100 mg/dL. Then check BG 1 hour post treatment. If BG is less than 100 mg/dL, repeat Q15 minute BG checks and treatment. Call MD for each episode of hypoglycemia., Indications: hypoglycemic disorderIndications:hypoglycemic disorder dextrose gel in packet 15 g 15 g, oral, Every 15 min PRN, low blood sugar, blood glucose less than 70 mg/dL, Starting on 05/15/24 at 0536, If patient is alert and able to eat/drink, give 15 gm glucose or one juice (4 fluid ounces) NOT ORANGE JUICE. After treatment for hypoglycemia, recheck BG followed by treatment every 15 minutes until the BG is greater than 100 mg/dL. Then check BG 1 hour post-treatment. If BG is less than 100 mg/dL, repeat Q15 minute BG checks and treatment. Call MD for each episode of hypoglycemia., Indications: hypoglycemic disorderIndications:hypoglycemic disorder docusate sodium (COLACE) capsule 100 mg 100 mg, oral, 2 times daily, First dose on 05/14/24 at 2100, Indications: constipationIndications:constipation Given 05/19/2024 8:53 PM PROCESS TANK TENDER 100 mg Given 05/19/2024 8:29 AM PROCESS TANK TENDER 100 mg Given 05/18/2024 8:41 PM PROCESS TANK TENDER 100 mg enoxaparin (LOVENOX) syringe 30 mg 30 mg, subcutaneous, Every 12 hours scheduled, First dose on 05/14/24 at 2100, Indications: Deep Vein Thrombosis PreventionIndications:Deep Vein Thrombosis Prevention Given 05/17/2024 8:53 AM PROCESS TANK TENDER 30 mg Left Upper Abdomen Given 05/16/2024 8:13 PM PROCESS TANK TENDER 30 mg Le ft Upper Arm Given 05/16/2024 8:28 AM PROCESS TANK TENDER 30 mg Le ft Lower Abdomen fentaNYL (SUBLIMAZE) preservative free injection 50 mcg 50 mcg, intravenous, Once, On 05/14/24 at 0955, For 1 dose Given 05/14/2024 9:57 AM PROCESS TANK TENDER 50 mcg fentaNYL (SUBLIMAZE) preservative free injection 50 mcg 50 mcg, intravenous, Once, On 05/14/24 at 1648, For 1 dose Given 05/14/2024 4:48 PM PROCESS TANK TENDER 50 mcg glucagon injection 1 mg 1 mg, intramuscular, Every 30 min PRN, low blood sugar, blood glucose less than 70 mg/dL AND no IV access AND unable to take PO glucose/juice., Starting on 05/15/24 at 0536, After Glucagon is administered, position patient on side if possible to avoid aspiration. Obtain IV access. Follow glucagon treatment with glucose treatment or IV dextrose. After treatment for hypoglycemia, recheck BG followed by treatment every 15 minutes until the BG is greater than 100 mg/dL. Then check BG 1 hour post treatment. If BG is less than 100 mg/dL, repeat Q15 minute BG checks and treatment. Call MD for each episode of hypoglycemia. Reconstitute 1 mg vial with 1 mL SWFI. Use immediately following reconstitution. haloperidol (HALDOL) 5 mg/mL injection - ADS Override Pull Starting on 05/14/24 at 1500, For 1 dose, Created by cabinet override haloperidol (HALDOL) injection 2.5 mg 2.5 mg, intravenous, Once, On 05/14/24 at 1712, For 1 dose, If administered IV push, administer over 5 min for adults Given 05/14/2024 5:14 PM PROCESS TANK TENDER 2.5 mg haloperidol (HALDOL) injection 5 mg 5 mg, intravenous, Once, On 05/14/24 at 0632, For 1 dose, If administered IV push, administer over 5 min for adults Given 05/14/2024 6:32 AM [employer] 5 mg haloperidol (HALDOL) injection 5 mg 5 mg, intravenous, Once, On 05/14/24 at 0955, For 1 dose, If administered IV push, administer over 5 min for adults Given 05/14/2024 9:57 AM [employer] 5 mg haloperidol (HALDOL) injection 5 mg 5 mg, intravenous, Once, On 05/14/24 at 1511, For 1 dose, If administered IV push, administer over 5 min for adults Given 05/14/2024 3:10 PM [employer] 5 mg heparin 5,000 unit/mL injection 5,000 Units 5,000 Units, subcutaneous, Every 8 hours scheduled, First dose on Thu05/17/24 at 2100, Indications: Deep Vein Thrombosis PreventionIndications:Deep Vein Thrombosis Prevention Given 05/20/2024 3:00 PM [employer] 5,000 Units Left Lower Abdomen Given 05/20/2024 6:38 AM [employer] 5,000 Units L eft Lower Abdomen Given 05/19/2024 9:08 PM [employer] 5,000 Units L eft Lower Abdomen HYDROmorphone (DILAUDID) injection 0.2 mg 0.2 mg, intravenous, Administer over 2 Minutes, Once, On Thu05/16/24 at 0130, For 1 dose Given 05/16/2024 1:00 AM [employer] 0.2 mg HYDROmorphone (DILAUDID) injection 0.2 mg 0.2 mg, intravenous, Administer over 2 Minutes, Once, On Thu05/16/24 at 0915, For 1 dose Given 05/16/2024 9:08 AM [employer] 0.2 mg HYDROmorphone (DILAUDID) injection 0.2 mg 0.2 mg, intravenous, Administer over 2 Minutes, Once, On Thu05/17/24 at 2200, For 1 dose Given 05/17/2024 9:42 PM [employer] 0.2 mg HYDROmorphone (DILAUDID) injection 0.2 mg 0.2 mg, intravenous, Administer over 2 Minutes, Once, On Obdulia 05/19/24 at 1945, For 1 dose Given 05/19/2024 7:14 PM [employer] 0.2 mg HYDROmorphone (DILAUDID) injection 0.5 mg 0.5 mg, intravenous, Administer over 2 Minutes, Once, On 05/14/24 at 1404, For 1 dose Given 05/14/2024 2:04 PM [employer] 0.5 mg HYDROmorphone (DILAUDID) tablet 2 mg 2 mg, oral, Every 4 hours PRN, 2nd line for pain, Starting on Obdulia 05/19/24 at 2217, Indications: PainIndications:Pain Given 05/20/2024 3:00 PM [employer] 2 mg Given 05/19/2024 11:29 PM [employer] 2 mg insulin lispro (HumaLOG, ADMELOG) 100 unit/mL injection 0-4 Units 0-4 Units, subcutaneous, Nightly, First dose on 05/15/24 at 2100, Blood glucose mg/dL: 199 or less: No insulin 200-249: add 1 unit 250-299: add 2 units 300-349: add 3 units and notify physician for adjustment of insulin orders. 350-399: add 4 units and notify physician for adjustment of insulin orders. Over 400: Notify physician for adjustment of insulin orders. Do NOT hold for NPO Status, Indications: Diabetes MellitusIndications:Diabetes Mellitus insulin lispro (HumaLOG, ADMELOG) 100 unit/mL injection 0-5 Units 0-5 Units, subcutaneous, 3 times daily with meals, First dose on 05/15/24 at 0800, Blood glucose mg/dL: 149 or less: No insulin 150-199: add 1 unit 200-249: add 2 units 250-299: add 3 units 300-349: add 4 units and notify physician for adjustment of insulin orders. 350-399: add 5 units and notify physician for adjustment of insulin orders. Over 400: Notify physician for adjustment of insulin orders. Do NOT hold for NPO Status, Indications: Diabetes MellitusIndications:Diabetes Mellitus Given 05/17/2024 12:14 PM [employer] 1 Units Left Lower Abdomen Given 05/16/2024 6:15 PM [employer] 1 Units Le ft Upper Arm Given 05/16/2024 2:19 PM [employer] 1 Units Le ft Upper Arm ketorolac (TORADOL) 15 mg/mL injection 15 mg 15 mg, intravenous, Once, On 05/14/24 at 0654, For 1 dose, For Adult IV push, administer over 15 seconds Given 05/14/2024 7:16 AM [employer] 15 mg ketorolac (TORADOL) 15 mg/mL injection 15 mg 15 mg, intravenous, Every 8 hours, First dose on 05/16/24 at 1600, For 3 doses, For Adult IV push, administer over 15 seconds Given 05/17/2024 8:53 AM [employer] 15 mg Given 05/16/2024 11:11 PM [employer] 15 mg Given 05/16/2024 3:17 PM [employer] 15 mg levothyroxine (SYNTHROID) tablet 137 mcg 137 mcg, oral, Daily (early AM), First dose (after last modification) on 05/15/24 at 0600, Administer on an empty stomach, preferably 30 minutes before breakfast. Take 4 hours apart from antacids, iron and calcium products. Separate from tube feeds, if applicable. Given 05/20/2024 6:38 AM [employer] 137 mcg Given 05/19/2024 6:05 AM [employer] 137 mcg Given 05/18/2024 5:51 AM [employer] 137 mcg lidocaine (ASPERCREME) 4 % patch 1 patch 1 patch, transdermal, Administer over 12 Hours, Every 24 hours, First dose on 05/15/24 at 1500, Apply to affected area: abdomen Medication Applied 05/17/2024 3:16 PM [employer] 1 patch Other (Comment) Medication Applied 05/16/2024 3:18 PM [employer] 1 patch Other (Comment) Medication Applied 05/15/2024 2:48 PM [employer] 1 patch Back lidocaine (LIDODERM) 5 % patch 1 patch 1 patch, transdermal, Administer over 12 Hours, Every 24 hours, First dose (after last reorder) on Thu05/18/24 at 1530, Do not cover the holes on the top side of the patch., Apply to affected area: abdomen Medication Applied 05/20/2024 3:43 PM [employer] 1 patch Other (Comment) Medication Applied 05/19/2024 11:53 AM [employer] 1 patch Other (Comment) Medication Applied 05/18/2024 1:52 PM [employer] 1 patch Other (Comment) LORazepam (ATIVAN) tablet 0.5 mg 0.5 mg, oral, Every 12 hours PRN, anxiety, Starting on Obdulia 05/19/24 at 1157 Given 05/19/2024 4:30 PM [employer] 0.5 mg LORazepam (ATIVAN) tablet 0.5 mg 0.5 mg, oral, 2 times daily PRN, anxiety, Starting on Thu05/20/24 at 0400 Given 05/20/2024 5:38 PM [employer] 0.5 mg methocarbamoL (ROBAXIN) tablet 500 mg 500 mg, oral, 3 times daily, First dose on Thu05/16/24 at 0915 Given 05/20/2024 3:43 PM [employer] 500 mg Given 05/20/2024 8:29 AM [employer] 500 mg Given 05/19/2024 8:53 PM [employer] 500 mg morphine injection 2 mg 2 mg, intravenous, Administer over 4 Minutes, Once, On 05/14/24 at 0621, For 1 dose Given 05/14/2024 6:22 AM [employer] 2 mg OLANZapine (ZyPREXA ZYDIS) disintegrating tablet 5 mg 5 mg, sublingual, Once, On Thu05/18/24 at 1515, For 1 dose, SENDING ONE DOSE TO PT SPECIFIC BIN Given 05/18/2024 2:49 PM [employer] 5 mg OLANZapine (ZyPREXA) 2.5 mg in sterile water 0.5 mL (5 mg/mL) syringe 2.5 mg, intravenous, Administer over 1 Minutes, Once, On Thu05/17/24 at 0630, For 1 dose, Reconstitute 10 mg vial with 2.1 mL SWFI. Resulting solution is ~5 mg/mL. Use immediately (within 1 hour) following reconstitution. Given 05/17/2024 5:56 AM [employer] 2.5 mg OLANZapine (ZyPREXA) 2.5 mg in sterile water 0.5 mL (5 mg/mL) syringe 2.5 mg, intravenous, Administer over 1 Minutes, Once, On Obdulia 05/19/24 at 1215, For 1 dose, Reconstitute 10 mg vial with 2.1 mL SWFI. Resulting solution is ~5 mg/mL. Use immediately (within 1 hour) following reconstitution. Given 05/19/2024 11:53 AM [employer] 2.5 mg OLANZapine (ZyPREXA) 5 mg in sterile water 1 mL (5 mg/mL) syringe 5 mg, intravenous, Administer over 1 Minutes, Once, On Thu05/17/24 at 0500, For 1 dose, Reconstitute 10 mg vial with 2.1 mL SWFI. Resulting solution is ~5 mg/mL. Use immediately (within 1 hour) following reconstitution. Given 05/17/2024 4:24 AM [employer] 5 mg oxyCODONE (ROXICODONE) tablet 2.5 mg 2.5 mg, oral, Every 4 hours PRN, 2nd line for pain, Starting on 05/14/24 at 1758, Indications: PainIndications:Pain Given 05/15/2024 5:39 PM [employer] 2.5 mg Given 05/15/2024 1:44 PM [employer] 2.5 mg Given 05/15/2024 9:38 AM [employer] 2.5 mg oxyCODONE (ROXICODONE) tablet 5 mg 5 mg, oral, Every 4 hours PRN, 2nd line for pain, Starting on 05/15/24 at 1913, Indications: PainIndications:Pain Given 05/19/2024 5:54 PM [employer] 5 mg Given 05/19/2024 2:01 PM [employer] 5 mg Given 05/19/2024 10:06 AM [employer] 5 mg oxyCODONE (ROXICODONE) tablet 5 mg 5 mg, oral, Once, On Thu05/18/24 at 2000, For 1 dose, Indications: PainIndications:Pain Given 05/18/2024 7:29 PM [employer] [address] (PROTONIX) extended release tablet 40 mg 40 mg, oral, Daily, First dose on 05/14/24 at 1830, Do not crush, chew, cut, dissolve, open or otherwise manipulate tablet/capsule., Indications: Stress Ulcer ProphylaxisIndications:Stress Ulcer Prophylaxis Given 05/20/2024 8:30 AM [employer] 40 mg Given 05/19/2024 8:29 AM [employer] 40 mg Given 05/18/2024 9:02 AM [employer] 40 mg polyethylene glycol (MIRALAX) packet 17 g 17 g, oral, Daily, First dose on Thu05/18/24 at 0900, Indications: constipationIndications:constipation Given 05/19/2024 8:29 AM [employer] 17 g Given 05/18/2024 9:01 AM [employer] 17 g QUEtiapine (SEROquel) tablet 25 mg 25 mg, oral, Once, On 05/15/24 at 1445, For 1 dose Given 05/15/2024 2:48 PM [employer] 25 mg QUEtiapine (SEROquel) tablet 50 mg 50 mg, oral, Nightly, First dose on 05/14/24 at 2100, Indications: Generalized Anxiety DisorderIndications:Generalized Anxiety Disorder Given 05/19/2024 8:53 PM [employer] 50 mg Given 05/18/2024 7:29 PM [employer] 50 mg Given 05/17/2024 9:00 PM [employer] 50 mg QUEtiapine (SEROquel) tablet 50 mg 50 mg, oral, Once, On Thu05/18/24 at 2230, For 1 dose Given 05/18/2024 10:15 PM [employer] 50 mg QUEtiapine (SEROquel) tablet 50 mg 50 mg, oral, Once, On Obdulia 05/19/24 at 2300, For 1 dose Given 05/19/2024 10:33 PM [employer] 50 mg senna-docusate (PERICOLACE) 8.6-50 mg per tablet 1 tablet 1 tablet, oral, 2 times daily, First dose on 05/14/24 at 2100, Hold for diarrhea., Indications: constipationIndications:constipation Given 05/19/2024 8:53 PM [employer] 1 table t Given 05/19/2024 8:29 AM [employer] 1 tablet Given 05/18/2024 8:41 PM [employer] 1 tablet sodium chloride 0.9% bolus 500 mL 500 mL, intravenous, Once, On Thu05/14/24 at 2330, For 1 dose New Bag 05/14/2024 11:14 PM [employer] 500 mL sodium chloride 0.9% bolus 500 mL 500 mL, intravenous, at 125 mL/hr, Administer over 4 Hours, Once, On e 05/17/24 at 0130, For 1 dose New Bag 05/17/2024 12:53 AM [employer] 500 mL 125 mL/hr sodium chloride 0.9% flush 0.5-20 mL 0.5-20 mL, intra-catheter, Every 8 hours scheduled (alternate), First dose on 05/14/24 at 1830, Flush volume based on line type and size. Given 05/17/2024 8:54 AM [employer] 10 mL Given 05/16/2024 3:22 PM [employer] 10 mL Given 05/16/2024 8:29 AM [employer] 10 mL sodium chloride 0.9% flush 0.5-20 mL 0.5-20 mL, intra-catheter, Every 8 hours scheduled (alternate), First dose on Thu05/18/24 at 0000, Flush volume based on line type and size. Given 05/20/2024 12:09 AM [employer] 10 mL Given 05/19/2024 3:26 PM [employer] 10 mL Given 05/19/2024 8:33 AM [employer] 10 mL sodium chloride 0.9% flush 0.5-20 mL 0.5-20 mL, intra-catheter, As needed, line care, Starting on Thu05/17/24 at 2117, Flush volume based on line type and size. Flush before and after each use. sodium zirconium cyclosilicate (LOKELMA) packet 5 g 5 g, oral, Once, On 05/16/24 at 0430, For 1 dose, Adjust medication timing to ensure other oral medications are administered at least 2 hours before or 2 hours after sodium zirconium cyclosilicate. Empty packet(s) into a glass with 3 tablespoons (45 mL) of water. Stir and administer immediately. Repeat until no powder remains in glass., Indications: hyperkalemiaIndications:hyperkalemia Given 05/16/2024 7:31 AM [employer] 5 g vancomycin 1500 mg/515 mL in sodium chloride 0.9% (premix) 1,500 mg 1,500 mg (rounded from 1,510.5 mg = 15 mg/kg ? 100.7 kg), intravenous, Administer over 90 Minutes, Once, On 05/14/24 at 0751, For 1 dose, Indications: Pneumonia, Hospital AcquiredIndications:Pneumonia, Hospital Acquired New Bag 05/14/2024 8:02 AM [employer] 1,500 mg documented in this encounter Discontinued Medications Medication Sig Discontinue Reason Start Date End Da te risperiDONE (RisperDAL) 0.25 mg tablet Stop Taking at Discharge 08/02/2022 024 HYDROcodone-acetaminophen (NORCO) 5-325 mg per tablet Stop Taking at Discharge 08/11/2023 documented as of this encounter Active and Recently Administered Medications Times are shown in [employer]. Scheduled Medication Order 05/18/2024 05/19/2024 05/20/2024 acetaminophen (TYLENOL) tablet 1,000 mg 1,000 mg, oral, Every 6 hours scheduled, First dose (after last modification) on 05/16/24 at 1200 0002 (Given - Provider: Fe Bhatti RN)0552 (Given - Provider: Fe Bhatti RN)1133 (Given - Provider: Marion Lamb)1723 (Given - Provider: Marion Lamb) 0000 (Not Given - Provider: Fe Bhatti RN - Reason: Other - Comment: Coordination of care - pt asleep and not complaining of pain at this time, MD [place] aware. Sleep hygiene promoted.)0151 (Given - Provider: Fe Bhatti RN - Comment: pt now awake, complains of pain)0605 (Given - Provider: Fe Bhatti RN)1122 (Given - Provider: Maria C Aguirre RN)1630 (Given - Provider: Maria C Aguirre RN) 0007 (Given - Provider: Mandie Holly RN)0638 (Given - Provider: Mandie Holly RN)1132 (Not Given - Provider: Maritza Rene, KHLOE - Reason: Other - Comment: asleep)1735 (Given - Provider: Faraz Lopez RN) amLODIPine (NORVASC) tablet 10 mg 10 mg, oral, Daily, First dose on 05/14/24 at 1830 0901 (Given - Provider: Marion Lamb) 0829 (Given - Provider: Maria C Aguirre RN) 0829 (Given - Provider: Maritza Rene, KHLOE) aspirin enteric coated tablet 81 mg 81 mg, oral, Daily, First dose on Thu05/18/24 at 0900, Do not crush, chew, cut, dissolve, open or otherwise manipulate tablet/capsule. 0901 (Given - Provider: Marion Lamb) 0829 (Given - Provider: Maria C Aguirre RN) 0829 (Given - Provider: Maritza Rene, KHLOE) atorvastatin (LIPITOR) tablet 10 mg 10 mg, oral, Daily, First dose on 05/14/24 at 1830 0901 (Given - Provider: Marion Lamb) 0829 (Given - Provider: Maria C Aguirre RN) 0829 (Given - Provider: Maritza Rene RN) bisacodyL (DULCOLAX) suppository 10 mg (COMPLETED) 10 mg, rectal, Once, On Thu05/18/24 at 0730, For 1 dose, Indications: constipation 0902 (Given - Provider: Marion Lamb) bisacodyL (DULCOLAX) suppository 10 mg (COMPLETED) 10 mg, rectal, Once, On Thu05/19/24 at 0700, For 1 dose, Indications: constipation 0829 (Given - Provider: Maria C Aguirre RN) cephalexin (KEFLEX) capsule 250 mg 250 mg, oral, 3 times daily, First dose on Thu05/17/24 at 1400, For 5 days, Indications: Urinary Tract/Genitourinary Infection 0901 (Given - Provider: Marion Lamb)1450 (Given - Provider: Marion Lamb)204 (Given - Provider: Fe Bhatti RN) 0829 (Given - Provider: Maria C Aguirre RN)1526 (Given - Provider: Maria C Aguirre RN)2053 (Given - Provider: Hemal Sales RN) 0829 (Given - Provider: Maritza Rene RN)1543 (Given - Provider: Morales Leyva RN) cholecalciferol (VITAMIN D-3) capsule 1,000 Units 1,000 Units, oral, Daily, First dose on Thu05/19/24 at 1415, Each capsule contains 1,000 units (25 mcg) of cholecalciferol. 1401 (Given - Provider: Maria C Aguirre RN) 0829 (Given - Provider: Maritza Rene RN) citalopram (CeleXA) tablet 20 mg 20 mg, oral, Daily, First dose on 05/14/24 at 1830 0902 (Given - Provider: Marion Lamb) 0829 (Given - Provider: Maria C Aguirre, KHLOE) 0830 (Given - Provider: Maritza Rene, KHLOE) docusate sodium (COLACE) capsule 100 mg 100 mg, oral, 2 times daily, First dose on Thu05/14/24 at 2100, Indications: constipation 0902 (Given - Provider: Marion Lamb)204 (Given - Provider: Fe Bhatti, KHLOE) 0829 (Given - Provider: Maria C Aguirre, KHLOE)205 (Given - Provider: Hemal Sales, KHLOE) 0758 (Not Given - Provider: Maritza Rene RN - Reason: Other) heparin 5,000 unit/mL injection 5,000 Units 5,000 Units, subcutaneous, Every 8 hours scheduled, First dose on Thu05/17/24 at 2100, Indications: Deep Vein Thrombosis Prevention 0552 (Given - Provider: Fe Bhatti RN)1352 (Given - Provider: Marion Lamb)2215 (Given - Provider: Fe Bhatti, KHLOE) 0605 (Given - Provider: Fe Bhatti, KHLOE)1402 (Given - Provider: Maria C Aguirre, KHLOE)2108 (Given - Provider: Hemal Sales, KHLOE) 0638 (Given - Provider: Mandie Holly RN)1500 (Given - Provider: Maritza Rene, KHLOE) HYDROmorphone (DILAUDID) injection 0.2 mg (COMPLETED) 0.2 mg, intravenous, Administer over 2 Minutes, Once, On Obdulia 05/19/24 at 1945, For 1 dose 1914 (Given - Provider: Nataliya Saxena RN) insulin lispro (HumaLOG, ADMELOG) 100 unit/mL injection 0-4 Units 0-4 Units, subcutaneous, Nightly, First dose on Thu05/15/24 at 2100, Blood glucose mg/dL: 199 or less: No insulin 200-249: add 1 unit 250-299: add 2 units 300-349: add 3 units and notify physician for adjustment of insulin orders. 350-399: add 4 units and notify physician for adjustment of insulin orders. Over 400: Notify physician for adjustment of insulin orders. Do NOT hold for NPO Status, Indications: Diabetes Mellitus 2124 (Not Given - Provider: Fe Bhatti RN - Reason: Order parameters not met - Comment: bg 110) 2106 (Not Given - Provider: Hemal Sales RN - Reason: Order parameters not met) insulin lispro (HumaLOG, ADMELOG) 100 unit/mL injection 0-5 Units 0-5 Units, subcutaneous, 3 times daily with meals, First dose on 05/15/24 at 0800, Blood glucose mg/dL: 149 or less: No insulin 150-199: add 1 unit 200-249: add 2 units 250-299: add 3 units 300-349: add 4 units and notify physician for adjustment of insulin orders. 350-399: add 5 units and notify physician for adjustment of insulin orders. Over 400: Notify physician for adjustment of insulin orders. Do NOT hold for NPO Status, Indications: Diabetes Mellitus 0903 (Not Given - Provider: Marion Lamb - Reason: Order parameters not met)1133 (Not Given - Provider: Marion Lamb - Reason: Order parameters not met)1800 (Due) 0729 (Not Given - Provider: Maria C Aguirre RN - Reason: Order parameters not met)1114 (Not Given - Provider: Maria C Aguirre RN - Reason: Order parameters not met)1718 (Not Given - Provider: Maria C Aguirre RN - Reason: Order parameters not met) 0757 (Not Given - Provider: Maritza Rene RN - Reason: Order parameters not met)1120 (Not Given - Provider: Maritza Rene RN - Reason: Order parameters not met)1748 (Not Given - Provider: Maritza Rene RN - Reason: Order parameters not met) levothyroxine (SYNTHROID) tablet 137 mcg 137 mcg, oral, Daily (early AM), First dose (after last modification) on 05/15/24 at 0600, Administer on an empty stomach, preferably 30 minutes before breakfast. Take 4 hours apart from antacids, iron and calcium products. Separate from tube feeds, if applicable. 0551 (Given - Provider: Fe Bhatti RN) 0605 (Given - Provider: Fe Bhatti RN) 0638 (Given - Provider: Mandie Holly RN) lidocaine (LIDODERM) 5 % patch 1 patch 1 patch, transdermal, Administer over 12 Hours, Every 24 hours, First dose (after last reorder) on Thu05/18/24 at 1530, Do not cover the holes on the top side of the patch., Apply to affected area: abdomen 1352 (Medication Applied - Provider: Marion Lamb) 0600 (Medication Removed - Provider: Fe Bhatti RN)1150 (Medication Removed - Provider: Maria C Aguirre RN)1153 (Medication Applied - Provider: Maria C Aguirre RN - Comment: r acetabular)1355 (Not Given - Provider: Maria C Aguirre RN - Reason: Other - Comment: given at 1153) 1529 (Not Given - Provider: Maritza Rene RN - Reason: Other)1543 (Medication Applied - Provider: Morales Leyva RN - Comment: R leg)1845 (Due: Medication Removed - Provider: Automatic Discharge Provider - Comment: Time automatically adjusted from order being discontinued) methocarbamoL (ROBAXIN) tablet 500 mg 500 mg, oral, 3 times daily, First dose on Thu05/16/24 at 0915 0902 (Given - Provider: Marion Lamb)1450 (Given - Provider: Marion Lamb)2041 (Given - Provider: Fe Bhatti RN) 0829 (Given - Provider: Maria C Aguirre RN)1526 (Given - Provider: Maria C Aguirre RN)2053 (Given - Provider: Hemal Sales RN) 0829 (Given - Provider: Maritza Rene RN)1543 (Given - Provider: Morales Leyva, KHLOE) OLANZapine (ZyPREXA ZYDIS) disintegrating tablet 5 mg (COMPLETED) 5 mg, sublingual, Once, On Thu05/18/24 at 1515, For 1 dose, SENDING ONE DOSE TO PT SPECIFIC BIN 1449 (Given - Provider: Marion Lamb) OLANZapine (ZyPREXA) 2.5 mg in sterile water 0.5 mL (5 mg/mL) syringe (COMPLETED) 2.5 mg, intravenous, Administer over 1 Minutes, Once, On Obdulia 05/19/24 at 1215, For 1 dose, Reconstitute 10 mg vial with 2.1 mL SWFI. Resulting solution is ~5 mg/mL. Use immediately (within 1 hour) following reconstitution. 1153 (Given - Provider: Maria C Aguirre RN) oxyCODONE (ROXICODONE) tablet 5 mg (COMPLETED) 5 mg, oral, Once, On Thu05/18/24 at 2000, For 1 dose, Indications: Pain 1928 (Given - Provider: Fe Bhatti RN) pantoprazole DR (PROTONIX) extended release tablet 40 mg 40 mg, oral, Daily, First dose on 05/14/24 at 1830, Do not crush, chew, cut, dissolve, open or otherwise manipulate tablet/capsule., Indications: Stress Ulcer Prophylaxis 0902 (Given - Provider: Marion Lamb) 0829 (Given - Provider: Maria C Aguirre RN) 0830 (Given - Provider: Maritza Rene RN) polyethylene glycol (MIRALAX) packet 17 g 17 g, oral, Daily, First dose on Thu05/18/24 at 0900, Indications: constipation 0901 (Given - Provider: Marion Lamb) 0829 (Given - Provider: Maria C Aguirre RN) 0757 (Not Given - Provider: Maritza Rene RN - Reason: Order parameters not met - Comment: loose bowel movements) QUEtiapine (SEROquel) tablet 50 mg 50 mg, oral, Nightly, First dose on 05/14/24 at 2100, Indications: Generalized Anxiety Disorder 1928 (Given - Provider: Fe Bhatti RN - Comment: admin early due to pt agitation per MD [place]) 2052 (Given - Provider: Hemal Sales RN) QUEtiapine (SEROquel) tablet 50 mg (COMPLETED) 50 mg, oral, Once, On Thu05/18/24 at 2230, For 1 dose 2215 (Given - Provider: Fe Bhatti RN) QUEtiapine (SEROquel) tablet 50 mg (COMPLETED) 50 mg, oral, Once, On Thu05/19/24 at 2300, For 1 dose 2233 (Given - Provider: Mandie Holly, KHLOE) senna-docusate (PERICOLACE) 8.6-50 mg per tablet 1 tablet 1 tablet, oral, 2 times daily, First dose on Thu05/14/24 at 2100, Hold for diarrhea., Indications: constipation 0901 (Given - Provider: Marion aLmb)2040 (Given - Provider: Fe Bhatti, KHLOE) 0829 (Given - Provider: Maria C Aguirre RN)205 (Given - Provider: Hemal Sales RN) 0758 (Not Given - Provider: Maritza Rene RN - Reason: Other) sodium chloride 0.9% flush 0.5-20 mL 0.5-20 mL, intra-catheter, Every 8 hours scheduled (alternate), First dose on Thu05/18/24 at 0000, Flush volume based on line type and size. 0006 (Not Given - Provider: Fe Bhatti RN - Reason: Patient/family refused)0902 (Given - Provider: Marion Lamb)1451 (Not Given - Provider: Marion Lamb - Reason: Patient/family refused)2348 (Not Given - Provider: Fe Bhatti RN - Reason: Patient/family refused) 0833 (Given - Provider: Maria C Aguirre RN)1526 (Given - Provider: Maria C Aguirre RN) 0009 (Given - Provider: Mandie Holly, KHLOE)0748 (Not Given - Provider: Maritza Rene, KHLOE - Reason: Other)1529 (Not Given - Provider: Maritza Rene RN - Reason: Loss of IV access) PRN Medication Order 05/18/2024 05/19/2024 05/20/2024 Carrier Fluids for Secondary Infusion - 0.9% Sodium Chloride 30 mL, intravenous, As needed, For priming tubing and/or flushing, Starting on Thu05/17/24 at 2117, 0-250 ml/hr to flush line after IV infusions when no maintenance IV ordered. Infuse 30mL at the same rate as the secondary infusion. Run as primary IV, not intended for KVO. dextrose (D10W) 10% bolus 250 mL(Linked Group 1) 250 mL, intravenous, at 1,000 mL/hr, Administer over 15 Minutes, Every 15 min PRN, blood glucose less than 70 mg/dL and UNABLE to swallow/take PO glucose/juice., Starting on Thu05/15/24 at 0536, After treatment for hypoglycemia, recheck BG followed by treatment every 15 minutes until the BG is greater than 100 mg/dL. Then check BG 1 hour post treatment. If BG is less than 100 mg/dL, repeat Q15 minute BG checks and treatment. Call MD for each episode of hypoglycemia., Indications: hypoglycemic disorder dextrose gel in packet 15 g(Linked Group 1) 15 g, oral, Every 15 min PRN, low blood sugar, blood glucose less than 70 mg/dL, Starting on Thu05/15/24 at 0536, If patient is alert and able to eat/drink, give 15 gm glucose or one juice (4 fluid ounces) NOT ORANGE JUICE. After treatment for hypoglycemia, recheck BG followed by treatment every 15 minutes until the BG is greater than 100 mg/dL. Then check BG 1 hour post-treatment. If BG is less than 100 mg/dL, repeat Q15 minute BG checks and treatment. Call MD for each episode of hypoglycemia., Indications: hypoglycemic disorder glucagon injection 1 mg 1 mg, intramuscular, Every 30 min PRN, low blood sugar, blood glucose less than 70 mg/dL AND no IV access AND unable to take PO glucose/juice., Starting on Thu05/15/24 at 0536, After Glucagon is administered, position patient on side if possible to avoid aspiration. Obtain IV access. Follow glucagon treatment with glucose treatment or IV dextrose. After treatment for hypoglycemia, recheck BG followed by treatment every 15 minutes until the BG is greater than 100 mg/dL. Then check BG 1 hour post treatment. If BG is less than 100 mg/dL, repeat Q15 minute BG checks and treatment. Call MD for each episode of hypoglycemia. Reconstitute 1 mg vial with 1 mL SWFI. Use immediately following reconstitution. HYDROmorphone (DILAUDID) tablet 2 mg 2 mg, oral, Every 4 hours PRN, 2nd line for pain, Starting on Obdulia 05/19/24 at 2217, Indications: Pain 2329 (Given - Provider: Mandie Holly RN) 1500 (Given - Provider: Maritza Rene RN) LORazepam (ATIVAN) tablet 0.5 mg (CANCELED) 0.5 mg, oral, Every 12 hours PRN, anxiety, Starting on Obdulia 05/19/24 at 1157 1630 (Given - Provider: Maria C Aguirre RN) LORazepam (ATIVAN) tablet 0.5 mg 0.5 mg, oral, 2 times daily PRN, anxiety, Starting on Thu05/20/24 at 0400 1738 (Given - Provider: Faraz Lopez RN) oxyCODONE (ROXICODONE) tablet 5 mg (CANCELED) 5 mg, oral, Every 4 hours PRN, 2nd line for pain, Starting on Thu05/15/24 at 1913, Indications: Pain 0002 (Given - Provider: Fe Bhatti RN)0551 (Given - Provider: Fe Bhatti RN)0902 (Given - Provider: Marion Lamb)1352 (Given - Provider: Marion Lamb)1723 (Given - Provider: Marion Lamb) 0151 (Given - Provider: Fe Bhatti RN)0605 (Given - Provider: Fe Bhatti RN)1006 (Given - Provider: Maria C Aguirre RN)1401 (Given - Provider: Maria C Aguirre RN)1754 (Given - Provider: Maria C Aguirre RN) sodium chloride 0.9% flush 0.5-20 mL 0.5-20 mL, intra-catheter, As needed, line care, Starting on Thu05/17/24 at 2117, Flush volume based on line type and size. Flush before and after each use. Linked Groups Order Group 1: dextrose gel in packet 15 gJump to med 15 g, oral, Every 15 min PRN, low blood sugar, blood glucose less than 70 mg/dL, Starting on Thu05/15/24 at 0536, If patient is alert and able to eat/drink, give 15 gm glucose or one juice (4 fluid ounces) NOT ORANGE JUICE. After treatment for hypoglycemia, recheck BG followed by treatment every 15 minutes until the BG is greater than 100 mg/dL. Then check BG 1 hour post-treatment. If BG is less than 100 mg/dL, repeat Q15 minute BG checks and treatment. Call MD for each episode of hypoglycemia., Indications: hypoglycemic disorder Or dextrose (D10W) 10% bolus 250 mLJump to med 250 mL, intravenous, at 1,000 mL/hr, Administer over 15 Minutes, Every 15 min PRN, blood glucose less than 70 mg/dL and UNABLE to swallow/take PO glucose/juice., Starting on 05/15/24 at 0536, After treatment for hypoglycemia, recheck BG followed by treatment every 15 minutes until the BG is greater than 100 mg/dL. Then check BG 1 hour post treatment. If BG is less than 100 mg/dL, repeat Q15 minute BG checks and treatment. Call MD for each episode of hypoglycemia., Indications: hypoglycemic disorder documented in this encounter Orders Medications Ordered That Elvin ht Not Have Been Administered Count Last Ordered Date First Ordered Date OLANZapine (ZyPREXA ZYDIS) d isintegrating tablet 5 mg 1 05/19/2024 Carrier Fluids for Secondary Infusion - 0.9% Sodium Chloride 2 05/17/2024 05/14/2024 sodium chloride 0.9% bolus 500 mL 1 024 sodium chloride 0.9% flush 0.5-20 mL 2 05/0805/14/2024 dextrose (D10W) 10% bolus 250 mL 1 05/15/20 dextrose gel in packet 15 g 1 05/15/2024 glucagon injection 1 mg 1 05/15/2024 insulin lispro (HumaLOG, ADM ELOG) 100 unit/mL injection 0-4 Units 1 05/15/2024 levothyroxine (SYNTHROID) tablet 150 mcg 1 05/14/2024 Lab Orders Without Results Count Last Ordered D ate First Ordered Date POCT GLUCOSE DEVICE 15 05/20/2024 05/15/20 24 Diet Count Last Ordered Date First Orde red Date ADULT DISCHARGE DIET 1 05/20/2024 Nursing Count Last Ordered Date First Orde red Date DISCHARGE ACTIVITY 1 05/20/2024 DISCHARGE CALL PROVIDER 6 05/20/2024 DISCHARGE INSTRUCTIONS 2 05/20/202405/19 TUBE OR DRAIN CARE 1 05/20/2024 BLADDER SCAN 1 05/17/2024 INSERT BRISCOE CATHETER 1 05/17/2024 BRISCOE CATHETER - DISCONTINUE 1 05/16/2024 Consult Count Last Ordered Date First Orde red Date CONSULT TO ORTHO-TRAUMA 1 05/14/2024 Consult to Trauma Surgery 1 05/14/2024 Admission Count Last Ordered Date First Orde red Date ADMIT TO INPATIENT 1 05/14/2024 Transfer Count Last Ordered Date First Orde red Date TRANSFER PATIENT TO NEW UNIT 1 05/17/2024 Discharge Count Last Ordered Date First Orde red Date DISCHARGE PATIENT 1 05/20/2024 documented in this encounter Additional Health Concerns Infection Onset Date Last Indicated Resolved Time COVID: Suspected 05/14/2024 05/14/2024 05/14/2024 11:36 AM PROCESS TANK TENDER Rhino/Enterovirus 05/14/2024 05/14/2024 05/21/2024 3:05 AM PROCESS TANK TENDER documented as of this encounter Care Teams Service Delivery Manager Relationship Specialty Start Date End Date Cedric Nguyen MD [address] [place] [address] PCP - General 09/17/16 documented as of this encounter
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
--- OUTSIDE RECORDS SUMMARY | 2024-05-24 20:51 | XMS_ITS | Clinical Summary ---
Author Organization [facility] Address [address] [place] [address] [place] [address] Care Team Providers Care Director Energy Name Role Phone Cedric Nguyen MD Primary Care Provider [phone] Allergies No known active allergies Medications valACYclovir [...] Chronic combined systolic and diastolic heart failure ([facility] HHS/HCC) Diabetes mellitus ([facility] HHS/[facility]) Acute gastrointestinal hemorrhage Iron deficiency anemia secondary to blood loss (chronic) from Last 3 Months or Most Recently Relevant to Health Maintenance Results * (ABNORMAL) HEMOGLOBIN, GLYCOSYLATED (09/24/2023 6:46 AM CDT) HGB A1C 6.5(H) <5.7 % 09/24/2023 12:21 PM CDT [facility] ESTIMATED AVG GLUCOSE 140(H) 74 - 114 MG/DL 09/24/2023 12:21 PM CDT [facility] 09/24/2023 6:46 AM CDT Ricardo Evans DO LABORATORY Final Result Performing Organization Address City/State/[facility] [[email or web address]] Co de Phone Number [facility] [address] [place] [address], [phone] from Last 3 Months or Most Recently Relevant to Health Maintenance Insurance [employer] MEDICARE [facility] Care Teams Director Energy Relationship Specialty Start Date End Date Cedric Nguyen MD [address] [place] [address] PCP - General FAMILY PRACTICE 09/16/21
--- OUTSIDE RECORDS SUMMARY | 2024-05-24 20:51 | XMS_ITS | Encounter Summary ---
Author Organization [facility] Address [address] [place] [address] [place] [address] Care Team Providers Care Neon Sign Servicer Name Role Phone Cedric Nguyen MD Primary Care Provider [phone] Encounter Details Date Type Department Care Team (Late st Contact Info) Description 03/19/2022 Orders Only [facility] [address] [place] [address] Cedric Nguyen MD [address] [place] [address] Social History Tobacco Use Types [...] - 10.8 x10'3/uL 03/19/2022 8:12 AM CDT [facility] RBC 3.86(L) 4.10 - 5.40 x10'6/uL 03/19/2022 8:12 AM CDT [facility] HGB 12.1 12.0 - 16.0 G/DL 03/19/2022 8:12 AM CDT [facility] HCT 36.5 36.0 - 47.0 % 03/19/2022 8:12 AM CDT [facility] MCV 94.6 78.0 - 100.0 FL 03/19/2022 8:12 AM CDT [facility] MCH 31.3(H) 27.0 - 31.0 PG 03/19/2022 8:12 AM CDT [facility] MCHC 33.2 33.0 - 36.0 G/DL 03/19/2022 8:12 AM CDT [facility] RDW 13.8 11.5 - 14.5 % 03/19/2022 8:12 AM CDT [facility] PLT 244 150 - 350 x10'3/uL 03/19/2022 8:12 AM CDT [facility] MPV 9.6 7.4 - 10.4 FL 03/19/2022 8:12 AM CDT [facility] DIFFERENTIAL COMMENT NORMAL REFERENCE RANGE NOT ESTABLISHED FOR THE PROPORTIONAL LEUKOCYTE DIFFERENTIAL. 03/19/2022 8:12 AM CDT [facility] SEG NEUTROPHILS 60.0 % 8:12 AM CDT [facility] LYMPHOCYTES 22.6 % 03/19/2022 8:12 AM CDT [facility] MONOCYTES 12.7 % 03/19/2022 8:12 AM CDT [facility] EOSINOPHILS 3.2 % 03/19/2022 8:12 AM CDT [facility] BASOPHILS 1.2 % 03/19/2022 8:12 AM CDT [facility] IMMATURE GRANS % 0.3 % 03/19/20 8:12 AM CDT [facility] NRBC 0.0 % 03/19/2022 8:12 AM CDT [facility] ABS. NEUTROPHILS 4.12 1.60 - 8.30 x10'3/uL 03/19/2022 8:12 AM CDT [facility] ABS. LYMPHOCYTES 1.55 0.80 - 4.70 x10'3/uL 03/19/2022 8:12 AM CDT [facility] ABS. MONOCYTES 0.87 0.00 - 1.50 x10'3/uL 03/19/2022 8:12 AM CDT [facility] ABS. EOSINOPHILS 0.22 0.00 - 0.40 x10'3/uL 03/19/2022 8:12 AM CDT [facility] ABS. BASOPHILS 0.08 0.00 - 0.20 x10'3/uL 03/19/2022 8:12 AM CDT [facility] ABS. IMMATURE GRANULOCYTES 0.02 0.00 - 0.03 x10'3/uL 03/19/2022 8:12 AM CDT [facility] ABS. NUCLEATED RBC'S 0.00 0.00 x10'3/uL 03/19/2022 8:12 AM CDT [facility] 03/19/2022 6:15 AM CDT Cedric Nguyen MD LABORATORY Final Result [facility] [address] [place] [address], documented in this encounter Visit Diagnoses Diagnosis Anemia, unspecified- Primary documented in this encounter Care Teams Neon Sign Servicer Relationship Specialty Start Date End Date Cedric Nguyen MD [address] [place], [place] [id number] PCP - General FAMILY PRACTICE 09/16/21 documented as of this encounter
--- OUTSIDE RECORDS SUMMARY | 2024-05-24 20:51 | XMS_ITS | Patient Health Summary ---
Author Organization [facility] Address [address] [place] [address] Care Team Providers Care Warp Dyeing Tender Name Role Phone Cedric Nguyen MD Primary Care Provider [phone] Note from [facility],non-owned Affiliates and Associated Physician Practices is amultiple site organization consisting of ambulatory clinics and hospital sitesin [place], [place], [place] and [place]. This disclosure is being madepursuant to the Care Everywhere program and may not contain all information available regarding this patient. Last updated 18.[facility] [employer] Medications * Be aware that medications may [...] Anatomical Region Laterality Modality Other Julieta Osorio JACK-AIRPORT OPERATIONS MANAGER VASCULAR LAB OR DERABLES * (ABNORMAL) CBC W AUTO DIFFERENTIAL (11/18/2016 12:02 AM CDT) Only the most recent of4 resultswithin the time period is included. WBC 9.3 3.5 - 10.5 10? 3 /uL [facility] RBC 3.08(L) 3.90 - 5.00 10? 6 /uL [facility] Hemoglobin 9.1(L) 12.0 - 15.5 g/dL [facility] Hematocrit 27.6(L) 35.0 - 45.0 % [facility] MCV 89.6 81.0 - 97.0 fL [facility] MCH 29.5 28.0 - 34.0 pg [facility] MCHC 33.0 32.0 - 36.0 g/dL [facility] Platelet Count 357 150 - 400 10? 3 /uL [facility] RDW-SD 44.1 36.0 - 50.0 fL [facility] RDW-CV 13.5 11.2 - 14.8 % [facility] MPV 8.5(L) 9.3 - 12.8 fL [facility] Neutrophils % 79.5(H) 35.0 - 70.0 % [facility] Lymphocytes % 12.8(L) 19.7 - 55.1 % [facility] Monocytes % 7.2 3.0 - 15.0 % [facility] Eosinophils % 0.1 0.0 - 6.0 % [facility] Basophil % 0.4 0.0 - 1.5 % [facility] Neutrophils Absolute 7.4(H) 1.6 - 7.0 10? 3 /uL [facility] Lymphocyte Absolute 1.2 0.8 - 2.9 10? 3 /uL [facility] Monocytes Absolute 0.67(H) 0.14 - 0.66 10? 3 /uL [facility] Eosinophils Absolute 0.01 0.00 - 0.22 10? 3 /uL [facility] Basophils Absolute 0.04 0.00 - 0.06 10? 3 /uL [facility] Immature Granulocytes % 0.2 0.0 - 1.0 % [facility] Blood specimen (specimen) BLOOD SPECIMEN / Unknown 11/18/2016 12:02 AM CDT 11/18/2016 12:05 AM CDT Amy Hu MD LAB - HEMATOLOGY OR DERABLES Performing Organization Address City/[facility]/ZIP Co de Phone Number [address] [phone] * (ABNORMAL) BASIC METABOLIC PANEL (CALCIUM TOTAL) (11/18/2016 12:02 AM CDT) Only the most recent of3 resultswithin the time period is included. BUN 19 7 - 26 mg/dL [facility] Creatinine 0.9 0.6 - 1.2 mg/dL [facility] Sodium 136 136 - 145 mmol/L [facility] Potassium 4.6(H) 3.5 - 4.5 mmol/L [facility] Chloride 106 98 - 107 mmol/L [facility] CO2 21(L) 22 - 29 mmol/L [facility] Glucose 120(H) 70 - 115 mg/dL [facility] Calcium 8.3(L) 8.4 - 10.2 mg/dL [facility] Anion Gap 14 8 - 18 [facility] BUN/Creatinine Ratio 21 7 - 23 [facility] Osmolality Calculated 285 270 - 300 mOsm/kg [facility] eGFR >60 >60 mL/min/1.7 3 m2 [facility] Blood specimen (specimen) BLOOD SPECIMEN / Unknown 11/18/2016 12:02 AM CDT 11/18/2016 12:05 AM CDT Amy Hu MD LAB - CHEMISTRY ORD ERABLES [address] [phone] * PHOSPHORUS BLOOD (11/18/2016 12:02 AM CDT) Phosphorus 4.3 2.3 - 4.7 mg/dL [facility] Blood specimen (specimen) BLOOD SPECIMEN / Unknown 11/18/2016 12:02 AM CDT 11/18/2016 12:05 AM CDT Amy uH MD LAB - CHEMISTRY ORD ERABLES Performing Organization Address [facility] Co de Phone Number [address] [phone] * (ABNORMAL) MAGNESIUM BLOOD (11/18/2016 12:02 AM CDT) Magnesium 1.5(L) 1.6 - 2.6 mg/dL [facility] Blood specimen (specimen) BLOOD SPECIMEN / Unknown 11/18/2016 12:02 AM CDT 11/18/2016 12:05 AM CDT Amy Hu MD LAB - CHEMISTRY ORD ERABLES Performing Organization Address [facility] Co de Phone Number [address] [phone] * ACT - POCT (IP) [facility] (11/17/2016 8:48 AM CDT) Only the most recent of3 resultswithin the time period is included. Activated Clotting Time 230 sec [facility] Blood specimen (specimen) 11/17/2016 8:48 AM CDT Amy Hu MD LAB - POINT OF CARE ORDERABLES Performing Organization Address [facility] Co de Phone Number [facility] * PATHOLOGY TISSUE (11/17/2016 8:21 AM CDT) Surgical Pathology Tissue ACCESSION No: [id number] CLINICAL HISTORY: RIGHT carotid artery occlusion, right [...] tissue with scattered areas of yellow calcification. Monorail Helper sections are submitted in cassette B1 following decalcification. MNR/edk MICROSCOPIC DESCRIPTION: ?The two right neck lymph nodes (A) have normal architecture with germinal centers, consistent with reactive nodes. The plaque (B) contains intima with abundant atherosclerotic plaque. BRIQUETTING MACHINE OPERATOR/take away attendant The performance characteristics of all immunohistochemical and indirect immunofluorescence stains (if any) cited in this report were determined by the Histopathology Laboratory of [facility].?? Some of these tests were developed by [...] by Rubia Morataya MD. Electronically signed 11/18/2016 [facility] ([place]) Biopsy, NOS ENTIRE LYMPH NODE / Unknown 11/17/2016 8:21 AM CDT 11/17/2016 1:07 PM CDT Narrative [facility] ([place]) - 11/18/2016 2:26 PM CDT Pre-op diagnosis: Righ carotid stenosis Amy Hu MD LAB - PATHOLOGY/CYT OLOGY ORDERABLES [facility] ([place]) * TYPE + SCREEN PANEL (11/17/2016 7:41 AM CDT) Only the most recent of2 resultswithin the time period is included. Typem O POS [facility] Antibody Screen NEG [facility] Blood specimen (specimen) 11/17/2016 7:41 AM CDT 11/17/2016 7:41 AM CDT Amy Hu MD LAB - BLOOD BANK OR DERABLES Performing Organization Address City/[facility]/ZIP Co de Phone Number [facility] [address] * (ABNORMAL) BLOOD GASES ART (11/17/2016 6:55 AM CDT) Pathologist [facility] EPOC Potassium POCT 4.8(H) 3.5 - 4.5 mmol/L [facility] RALFritz ([place]) Comment: Sample Type: Venous National Van Truck Driver: ELMER ??LEANNE 11/17/2016 6:55 AM CDT Amy Hu MD LAB - BLOOD GASES O RDERABLES Performing Organization Address City/[facility]/ZIP Co de Phone Number [facility] RAJIV ([place]) * EKG 12-LEAD (11/12/2016 12:00 AM CDT) Pathologist [facility] EKG [facility] Comment: Exam Date/Time: ?? Nov [...] available Confirmed by MD Viviane, Alannah ([id number]), assistant production editor RANDALL BRAY ([id number]) on 12/16/2016 7:25:12 PM Referred By: REFERRING NO ? Confirmed By:Alannah Pan MD 11/12/2016 Mattie Guardado PASTORAL ASSISTANT-AIRPORT OPERATIONS MANAGER ECG ORDER ACACIA [facility] Care Teams Warp Dyeing Tender Relationship Specialty Start Date End Date Cedric Nguyen MD [address] [place] [address] PCP - General 09/17/16
--- OUTSIDE RECORDS SUMMARY | 2024-05-24 20:51 | XMS_ITS | Encounter Summary ---
Author Organization [facility] Address [address] [place] [address] Care Team Providers Care Locomotive Switch Operator Name Role Phone Cedric Nguyen MD Primary Care Provider [phone] Encounter Details Date Type Department Care Team (Late st Contact Info) Description 11/17/2016 Anesthesia Historic Visit [facility] [address] [place] [id number] Social History Tobacco Use Types Packs/Day Years Used Date Smoking Tobacco: Never Assessed Sex and Gender Information Value Date Recorded Sex Assigned at Not on file Gender Identity Not on file Sexual Orientation Not on file documented as of this encounter Plan of Treatment Not on file documented as of this encounter Visit Diagnoses Not on filedocumented in this encounter Care Teams Locomotive Switch Operator Relationship Specialty Start Date End Date Cedric Nguyen MD [address] [place] [address] PCP - General 09/17/16 documented as of this encounter
--- OUTSIDE RECORDS SUMMARY | 2024-05-24 20:51 | XMS_ITS | Encounter Summary ---
Author Organization [facility] Address [address] [facility]. [place], [place] [address] [place] [address] Care Team Providers Care Special Projects Coordinator Name Role Phone Cedric Hercules MD Primary Care Provider [phone] Reason for Referral * (Routine) - Canceled Specialty Diagnoses / Procedures Referred By Contac t Referred To Contact Procedures OT Eval and Treat [facility] [address] [place] [address] [place] [address] Phone: tel: Referral ID Status Reason Start Date Expiration Date V isits Requested Visits Authorized [id number] Canceled 09/17/2021 10/17/2022 1 1 * (Routine) - Canceled Specialty Diagnoses / Procedures Referred By Contac t Referred To Contact Procedures PT Eval and Treat [facility] Unit [address] [place] [address] [place] [address] Phone: tel: Referral ID Status Reason Start Date Expiration Date V isits Requested Visits Authorized [id number] Canceled 09/17/2021 10/17/2022 1 1 * Imaging (Urgent) - Closed Specialty Diagnoses / Procedures Referred By Contac t Referred To Contact RADIOLOGY Procedures USE ECHOCARDIOGRAM [place] [address] Phone: tel: fax: Referral ID Status Reason Start Date Expiration Date Visits Re quested Visits Authorized [id number] Closed 09/16/2021 10/16/2022 1 1 * Imaging (Emergency) - Closed Specialty Diagnoses / Procedures Referred By Awa foley Referred To Contact RADIOLOGY Procedures CTA CHEST Shilpa Chung MD [address] [place] [address] Phone: tel: fax: Referral ID Status Reason Start Date Expiration Date Visits Re quested Visits Authorized [id number] Closed 09/16/2021 10/16/2022 1 1 Reason for Visit * Reason Comments Shortness Of Breath * Auth/Cert Specialty Diagnoses / Procedures Referred By Awa foley Referred To Contact Diagnoses CHF (congestive heart failure) ([facility] HHS/HCC) Pneumonia Hypoxia Respiratory failure with hypoxia ([facility] HHS/HCC) Respiratory failure with hypoxia ([facility]) Procedures NONE Referral ID Status Reason Start Date Expiration Date Visits Re quested Visits Authorized [id number] 1 1 Encounter Details Date Type Department Care Team (Late st Contact Info) Description 09/16/2021 4:58 AM CDT - 09/19/2021 11:37 AM CDT Hospital Encounter [facility] [address] [place] [address] Shilpa Chung MD [address] [place], [place] [address] [phone] Divya Dalal MD [place], [place] [id number] [phone] Devon Ramires MD [address] [place] [address] Shortness Of Breath Discharge Disposition: Group Home Facility Social History Tobacco Use Types Packs/Day [...] bathing? No 09/16/2021 8:09 AM CDT María eDe RN Active Because of a physical, mental, [...] Summary Patient ID: Indy Valdez. female. 1940. [id number] Admit date: 09/16/2021 4:58 AM Discharge date: 09/19/21 Admitting Physician: Divya Dalal MD Primary Care Physician: CEDRIC HERCULES MD Discharge Physician: DEVON RAMIERS MD Discharge Diagnoses: 1. Acute respiratory failure [...] to have fluid status monitored at the long term facility. Left upper extremity thrombophlebitis, warm compress at the long term facility. Discharged Condition: Stable Code Status: No [...] No results for input(s): PH, PCO2, PO2, [id number], BICARBWB, BASEDEFICIT, BASEEXCESS in the [id number] hours. No results found for this or [...] future appointments. Cedric Hercules MD [address] [id number] Follow up TIME SPENT ON DISCHARGE: I [...] 11:21 AM CDT PATIENT TO DISCHARGE TO [facility]. Diet: General; 2 gm NA, carb restricted to 75g/meal Activity: as tolerated PT/OT eval and treat. Last dose tylenol: 09/19/21 at 0911. Last dose [place] 5/325: 09/16/21 at 5:46pm. Last dose lorazepam: [...] Everywhere. * Heart Failure Discharge Instructions, Adult (Thai) * Community-Acquired Pneumonia Discharge Instructions, Adult (Thai) documented in this encounter Medications at Time [...] facility Patient expects to be discharged to: [facility] Patient will discharge to [facility]. Family will provide transportation. All case management needs have been met. * ALEXANDRA Rockwell - 09/19/2021 8:25 AM CDT Patient accepted at [facility]. COVID-19 test results faxed to facility. Pt [...] Recommendation OT Recommendation OT during hospitalization;OT at long term facility;24 hour supervision/assist OT Equipment Recommended To [...] ALEXANDRA Rockwell - 09/18/2021 10:40 AM CDT [employer] spoke with [facility] veterinary receptionist who reports that admissions is not in office today. Facility reports that patient accepted at facility tomorrow. Pt daughter will transport patient to facility. Facility will need COVID test results prior to admission. [employer] will coordinateplan for discharge. 3:00pm: Updated notes faxed to [facility]. * Divya Dalal MD - 09/18/2021 10:16 [...] No results for input(s): PH, PCO2, PO2, [id number], BICARBWB, BASEDEFICIT, BASEEXCESS in the [id number] hours. IMAGING: CTA CHEST Result Date: 09/16/2021 [...] 09/17/2021 Echocardiography Report Pat.Name: INDY VALDEZ Pat.ID: [id number] .Date: 09/17/2021 Refer.: [id number], YOU SHILPA H Exam Time: 10:20:00 AM Study Type:ECHO WITH CARDIAC DOPPLER COMP Height: 64in Weight: 139.71lb BSA: 1.68 m2 Age: 2 1940,81Y Sex: FEMALE BP: 132/61 Sonogrphr: Janel Starr SANGEETA Pat. Stat.:Inpatient Room: [facility] CPT - 4: 55822 Reason for Study: Heart failure, IE 33-1SN [id number] / X5-1 SN [id number] Procedures: 2D, M-mode, [...] Pat Name: INDY VALDEZ Department: 68 Room: [place] [address] Gender: F Repairer Veneer Sheet: : 1940 Requested By: Order Number: [id number] Reading MD: Ronnie Patterson Measurements Intervals Ryder Rate: 92 P: 59 UT: 165 QRS: 41 QRSD: 92 T: 50 [...] Home Equipment Wheelchair-manual Prior Function Level of [place] Independent with ADLs;Independent with functional transfers;Independent with [...] Home Equipment Wheelchair-manual Prior Function Level of [place] Independent with ADLs;Independent with functional transfers;Independent with [...] benefit from skilled therapy to return to [facility]. Recommendation OT Recommendation OT during hospitalization;OT at long term facility;24 hour supervision/assist OT Equipment Recommended To [...] No results for input(s): PH, PCO2, PO2, [id number], BICARBWB, BASEDEFICIT, BASEEXCESS in the [id number] hours. IMAGING: CTA CHEST Result Date: 09/16/2021 [...] Date: 09/17/2021 Echocardiography Report Pat.Name: INDY VALDEZ [facility].ID: [id number] .Date: 09/17/2021 : [id number], YOU SHILPA H Exam Time: 10:20:00 AM Study Type:ECHO WITH CARDIAC DOPPLER COMP Height: 64in Weight: 139.71lb BSA: 1.68 m2 Age: 2 1940,81Y Sex: FEMALE BP: 132/61 Sonogrphr: Janel Starr SANGEETA Pat. Stat.:Inpatient Room: 606-06 CPT - 4: 77187 Reason for Study: Heart failure, IE 33-1SN [id number] / X5-1 SN [id number] Procedures: 2D, M-mode, [...] Pat Name: INDY VALDEZ Department: 68 Room: [place] [address] Gender: F Repairer Veneer Sheet: : 1940 Requested By: Order Number: [id number] Reading MD: Ronnie Patterson Measurements Intervals Ryder Rate: 92 P: 59 UT: 165 QRS: 41 QRSD: 92 T: 50 [...] that family does not want placement at [facility]. Pt daughter would like referral to be faxed to [facility]. 10:30am: Karina Maza called and reports that patient accepted at facility after three midnights. [employer] will inform family. 12:00pm: Referral faxed to [facility] per pt daughter request. Fax number is [phone]. * ALEXANDRA Rockwell - 09/16/2021 11:02 AM CDT 09/16/21 1100 Referral Data Source of Information Family/Significant Other Patient Information Primary Caregiver Family Support System Immediate family Baseline ADL's Behavior Confused Communication Talks;Understands speaking;Understands Thai Anticipated Discharge Needs Change in Living Arrangements Yes Anticipated DC Plan Living Arrangements Other (Comment) Type of Residence Rehab facility Patient expects to be discharged to: Rehab facility [employer] met with patient and daughter at bedside. Patient resides at home with her daughter. Patient uses a wheelchair at home. Family would like for patient to go to rehabilitation facility and then transition to long-term care. Patient daughter is POA. [employer] provided pt daughter with list of long term facility options. Patient daughter states that she is not from here and is not familiar with facilities in this area. Pt daughter plans to tour facilities. [employer] will continue to assist patient and family [...] devices (i.e., cane, walker, shower chair). 2:00pm: [employer] spoke with pt daughter, and sister. Family would like referrals to be sent to [facility], [facility], [facility], and [facility]. Family plans to tour facilities this afternoon [...] No results for input(s): PH, PCO2, PO2, [id number], BICARBWB, BASEDEFICIT, BASEEXCESS in the [id number] hours. Imaging & Other Studies No results found. Results for orders placed or performed during the hospital encounter of 09/16/21 ECG [address] [facility] Test Date: 2021-09-16 Pat Name: INDY VALDEZ Department: 68 Room: [place] [address] Gender: F Repairer Veneer Sheet: : 1940 Requested By: Order Number: [id number] Reading MD: Ronnie Patterson Measurements Intervals Ryder Rate: 92 P: 59 UT: 165 QRS: 41 QRSD: 92 T: 50 [...] Portions of this note were dictated with [employer] medical dictation software. Misspellings, punctuation errors, omitted words or dictation variances may occur. DIVYA DALAL MD 09/16/2021 7:05 PM documented in this encounter Nursing Notes * Katt Jerome RN - 09/19/2021 11:19 AM CDT Report called to Mandie at [facility] documented in this encounter ED Notes * [...] Pat Name: INDY VALDEZ Department: 68 Room: [place] [address] Gender: Female Repairer Veneer Sheet: : 1940 Requested By: Order Number: [id number] Reading MD: Measurements Intervals Ryder Rate: 92 P: 59 UT: 165 QRS: 41 QRSD: 92 T: 50 [...] SCREEN NEGATIVE SAMPLE EXPIRATION: 09/19/2021,2359 UNIT NUMBER [id number] PRODUCT: PC LEUKOPOOR UNIT DIVISION 00 UNIT STATUS ALLOCATED TRANSFUSION STATUS OK TO TRANSFUSE CROSSMATCH COMPATIBLE UNIT NUMBER [id number] PRODUCT: LEUKOPOOR UNIT DIVISION 00 UNIT STATUS ALLOCATED TRANSFUSION STATUS OK TO TRANSFUSE CROSSMATCH COMPATIBLE UNIT NUMBER [id number] PRODUCT: PC LEUKOPOOR UNIT DIVISION 00 UNIT [...] UNKNOWN PATIENT IN ICU UNKNOWN [facility] UNKNOWN IMAGING STUDIES CTA CHEST Final Result by User, [email or web address] (09/16 701) CTA CHEST WITH CONTRAST CLINICAL [...] XR CHEST PORTABLE Final Result by User, [email or web address] (09/16 552) Examination: Chest Radiograph, 1 view [...] treatment. Clinical Impression CHF (congestive heart failure) ([facility]) (Primary) Pneumonia Hypoxia Disposition: Admit Shilpa Chung [...] - 139 MG/DL 09/19/2021 11:15 AM CDT [facility] 09/19/2021 11:1 3 AM CDT Devon Ramires MD POCT ORDERABLES - DEVICE Fi nal Result [facility] [address] [place] [address], * POCT glucose (09/19/2021 5:50 AM CDT) GLUCOSE POC 132 70 - 139 MG/DL 09/19/2021 5:54 AM CDT [facility] 09/19/2021 5:50 AM CDT Divya Dalal MD POCT ORDERABLES - DEVICE Final Result Performing Organization Address [facility] Co de Phone Number [facility] [address] [place] [address], * (ABNORMAL) CBC W/DIFF AUTOMATED (09/19/2021 3:15 AM CDT) WBC 11.6(H) 4.6 - 9.1 x10'3/uL 09/19/2021 3:57 AM CDT [facility] RBC 4.29 3.90 - 5.00 x10'6/uL 09/19/2021 3:57 AM CDT [facility] HGB 8.7(L) 11.8 - 14.7 G/DL 09/19/2021 3:57 AM CDT [facility] HCT 31.4(L) 36.3 - 45.2 % 09/19/2021 3:57 AM CDT [facility] MCV 73.2(L) 80.0 - 98.0 FL 09/19/2021 3:57 AM CDT [facility] MCH 20.3(L) 26.8 - 32.1 PG 09/19/2021 3:57 AM CDT [facility] MCHC 27.7(L) 30.7 - 34.2 G/DL 09/19/2021 3:57 AM CDT [facility] RDW 26.2(H) 12.0 - 14.8 % 09/19/2021 3:57 AM CDT [facility] PLT 516(H) 145 - 358 x10'3/uL 09/19/2021 3:57 AM CDT [facility] MPV 8.6(L) 8.8 - 12.3 FL 09/19/2021 3:57 AM CDT [facility] SEG NEUTROPHILS 67.8 % 3:57 AM CDT [facility] LYMPHOCYTES 15.6 % 09/19/2021 3:57 AM CDT [facility] MONOCYTES 11.9 % 09/19/2021 3:57 AM CDT [facility] EOSINOPHILS 2.8 % 09/19/2021 3:57 AM CDT [facility] BASOPHILS 1.2 % 09/19/2021 3:57 AM CDT [facility] IMMATURE GRANS % 0.7 % 09/20/19 3:57 AM CDT [facility] NRBC 0.3 % 09/19/2021 3:57 AM CDT [facility] ABS. NEUTROPHILS 7.85(H) 2.30 - 5.70 x10'3/uL 09/19/2021 3:57 AM CDT [facility] ABS. LYMPHOCYTES 1.80 1.10 - 3.30 x10'3/uL 09/19/2021 3:57 AM CDT [facility] ABS. MONOCYTES 1.37(H) 0.30 - 0.80 x10'3/uL 09/19/2021 3:57 AM CDT [facility] ABS. EOSINOPHILS 0.32 0.03 - 0.45 x10'3/uL 09/19/2021 3:57 AM CDT [facility] ABS. BASOPHILS 0.14(H) 0.01 - 0.09 x10'3/uL 09/19/2021 3:57 AM CDT [facility] ABS. IMMATURE GRANULOCYTES 0.08 0.00 - 0.09 x10'3/uL 09/19/2021 3:57 AM CDT [facility] ABS. NUCLEATED RBC'S 0.03 0.00 - 0.12 x10'3/uL 09/19/2021 3:57 AM CDT [facility] 09/19/2021 3:15 AM CDT us Divya Dalal MD LABORATORY Final Result [facility] [address] [place] [address], * (ABNORMAL) BASIC METABOLIC PANEL (09/19/2021 3:15 AM CDT) Pathologist [facility] SODIUM S/P/B 134(L) 136 - 145 MMOL/L 09/19/2021 4:11 AM CDT [facility] POTASSIUM S/P/B 3.5 3.5 - 5.1 MMOL/L 09/19/2021 4:11 AM CDT [facility] CHLORIDE S/P/B 100 98 - 107 MMOL/L 09/19/2021 4:11 AM CDT [facility] CO2 28.0 21.0 - 32.0 MMOL/L 09/19/2021 4:11 AM CDT [facility] GLUCOSE 105 74 - 106 MG/DL 09/19/2021 4:11 AM CDT [facility] BUN 17 7 - 18 MG/DL 09/19/2021 4:11 AM CDT [facility] CREATININE S/P/B 1.08(H) 0.55 - 1.02 MG/DL 09/19/2021 4:11 AM CDT [facility] CALCIUM S/P/B 8.3(L) 8.5 - 10.1 MG/DL 09/19/2021 4:11 AM CDT [facility] ANION GAP 6.0 5.0 - 15.0 MMOL/L 09/19/2021 4:11 AM CDT [facility] OSMOLALITY (CALC) 280 MOSM/KG 022 4:11 AM CDT [facility] Comment:REFERENCE RANGE NOT ESTABLISHED EGFR NON-AFR. AMER. 49(L) >89 ML/MIN/1. 73 M2 09/19/2021 4:11 AM CDT [facility] EGFR AFR. AMER. 57(L) >89 ML/MIN/1. 73 M2 09/19/2021 4:11 AM T [facility] GFR NOTES GFR REFERENCE S: 09/19/2021 4:11 AM T [facility] Comment: THE ESTIMATED GFR [...] us Divya Dalal MD LABORATORY Final Result [facility] [address] [place] [address], * POCT glucose (09/18/2021 8:10 PM CDT) GLUCOSE POC 111 70 - 139 MG/DL 09/18/2021 8:15 PM CDT [facility] 09/18/2021 8:10 PM CDT Divya Dalal MD POCT ORDERABLES - DEVICE Final Result Performing Organization Address [facility]/ZIP Co de Phone Number [facility] [address] [place] [address], * POCT glucose (09/18/2021 4:47 PM CDT) GLUCOSE POC 126 70 - 139 MG/DL 09/18/2021 4:51 PM CDT [facility] 09/18/2021 4:47 PM CDT Divya Dalal MD POCT ORDERABLES - DEVICE Final Result Performing Organization Address [facility] Co de Phone Number [facility] [address] [place] [address], * CORONAVIRUS (COVID 19) PCR [place] (09/18/2021 4:45 PM CDT) SPECIMEN SOURCE NASOPHARYNGEAL SWAB 09/18/2021 4:49 PM CDT [facility] CORONAVIRUS SARS COV 2 PCR (RESP) NEGATIVE NEGATIVE 09/18/2021 5:43 PM CDT [facility] Comment: THE SARS-CoV-2 TEST HAS BEEN AUTHORIZED BY THE FDA UNDER AN EUA FOR USE BY AUTHORIZED LABORATORIES. FIRST TEST UNKNOWN 09/18/2021 4:49 PM CDT [facility] EMPLOYED IN HEALTHCARE NO 09/18/2021 4:49 PM CDT [facility] SYMPTOMATIC DEFINED BY CDC NO 09/18/2021 4:49 PM CDT [facility] HOSPITALIZATION STATUS YES 09/18/2021 4:49 PM CDT [facility] PATIENT IN ICU NO 09/18/2021 4:49 PM CDT [facility] RESIDENT OF [place] CARE NO 09/18/2021 4:49 PM CDT [facility] NASOPHARYNGEAL SWAB / Unknown 09/18/2021 4:45 PM CDT us Divya Dalal MD MICROBIOLOGY - GENERAL ORDERABL ES Final Result [facility] [address] [place] [address], * POCT glucose (09/18/2021 11:17 AM CDT) GLUCOSE POC 130 70 - 139 MG/DL 09/18/2021 11:19 AM CDT [facility] 09/18/2021 11:1 7 AM CDT us Divya Dalal MD POCT ORDERABLES - DEVICE Final Result Performing Organization Address City/[facility]/ZIP Co de Phone Number [facility] [address] [place] [address], [place] [phone] * POCT glucose (09/18/2021 5:29 AM CDT) GLUCOSE POC 97 70 - 139 MG/DL 09/18/2021 5:59 AM CDT [facility] 09/18/2021 5:29 AM CDT us Divya Dalal MD POCT ORDERABLES - DEVICE Final Result Performing Organization Address [facility] Co de Phone Number [facility] [address] [place] [address], [place] [phone] * (ABNORMAL) BASIC METABOLIC PANEL (09/18/2021 3:48 AM CDT) SODIUM S/P/B 135(L) 136 - 145 MMOL/L 09/18/2021 4:44 AM T [facility] POTASSIUM S/P/B 3.7 3.5 - 5.1 MMOL/L 09/18/2021 4:44 AM T [facility] CHLORIDE S/P/B 100 98 - 107 MMOL/L 09/18/2021 4:44 AM T [facility] CO2 29.0 21.0 - 32.0 MMOL/L 09/18/2021 4:44 AM T [facility] GLUCOSE 92 74 - 106 MG/DL 09/18/2021 4:44 AM [facility] BUN 19(H) 7 - 18 MG/DL 09/18/2021 4:44 AM [facility] CREATININE S/P/B 1.04(H) 0.55 - 1.02 MG/DL 09/18/2021 4:44 AM T [facility] CALCIUM S/P/B 7.9(L) 8.5 - 10.1 MG/DL 09/18/2021 4:44 AM [facility] ANION GAP 6.0 5.0 - 15.0 MMOL/L 09/18/2021 4:44 AM [facility] OSMOLALITY (CALC) 282 MOSM/KG 022 4:44 AM [facility] Comment:REFERENCE RANGE NOT ESTABLISHED EGFR NON-AFR. AMER. 51(L) >89 ML/MIN/1. 73 M2 09/18/2021 4:44 AM T [facility] EGFR AFR. AMER. 59(L) >89 ML/MIN/1. 73 M2 09/18/2021 4:44 AM [facility] GFR NOTES GFR REFERENCE S: 09/18/2021 4:44 AM [facility] Comment: THE ESTIMATED GFR [...] us Divya Dalal MD LABORATORY Final Result [facility] [address] [place] [address], [place] [phone] * (ABNORMAL) CBC W/DIFF AUTOMATED (09/18/2021 3:48 AM CDT) WBC 10.8(H) 4.6 - 9.1 x10'3/uL 09/18/2021 4:25 AM CDT [facility] RBC 4.10 3.90 - 5.00 x10'6/uL 09/18/2021 4:25 AM CDT [facility] HGB 8.3(L) 11.8 - 14.7 G/DL 09/18/2021 4:25 AM CDT [facility] HCT 29.6(L) 36.3 - 45.2 % 09/18/2021 4:25 AM CDT [facility] MCV 72.2(L) 80.0 - 98.0 FL 09/18/2021 4:25 AM CDT [facility] MCH 20.2(L) 26.8 - 32.1 PG 09/18/2021 4:25 AM CDT [facility] MCHC 28.0(L) 30.7 - 34.2 G/DL 09/18/2021 4:25 AM CDT [facility] RDW 25.2(H) 12.0 - 14.8 % 09/18/2021 4:25 AM CDT [facility] PLT 496(H) 145 - 358 x10'3/uL 09/18/2021 4:25 AM CDT [facility] MPV 8.6(L) 8.8 - 12.3 FL 09/18/2021 4:25 AM CDT [facility] SEG NEUTROPHILS 64.6 % 4:26 AM CDT [facility] LYMPHOCYTES 18.3 % 09/18/2021 4:26 AM CDT [facility] MONOCYTES 12.4 % 09/18/2021 4:26 AM CDT [facility] EOSINOPHILS 2.8 % 09/18/2021 4:26 AM CDT [facility] BASOPHILS 1.3 % 09/18/2021 4:26 AM CDT [facility] IMMATURE GRANS % 0.6 % 09/19/19 4:26 AM CDT [facility] NRBC 0.5 % 09/18/2021 4:26 AM CDT [facility] ABS. NEUTROPHILS 7.01(H) 2.30 - 5.70 x10'3/uL 09/18/2021 4:26 AM CDT [facility] ABS. LYMPHOCYTES 1.98 1.10 - 3.30 x10'3/uL 09/18/2021 4:26 AM CDT [facility] ABS. MONOCYTES 1.34(H) 0.30 - 0.80 x10'3/uL 09/18/2021 4:26 AM CDT [facility] ABS. EOSINOPHILS 0.30 0.03 - 0.45 x10'3/uL 09/18/2021 4:26 AM CDT [facility] ABS. BASOPHILS 0.14(H) 0.01 - 0.09 x10'3/uL 09/18/2021 4:26 AM CDT [facility] ABS. IMMATURE GRANULOCYTES 0.07 0.00 - 0.09 x10'3/uL 09/18/2021 4:26 AM CDT [facility] ABS. NUCLEATED RBC'S 0.05 0.00 - 0.12 x10'3/uL 09/18/2021 4:26 AM CDT [facility] 09/18/2021 3:48 AM CDT us Divya Dalal MD LABORATORY Final Result Performing Organization Address [facility] Co de Phone Number [facility] [address] [place] [address], * (ABNORMAL) POCT glucose (09/17/2021 8:28 PM CDT) GLUCOSE POC 214(H) 70 - 139 MG/DL 09/17/2021 8:44 PM CDT [facility] 09/17/2021 8:28 PM CDT us Divya Dalal MD POCT ORDERABLES - DEVICE Final Result Performing Organization Address [facility] Co de Phone Number [facility] [address] [place] [address], [place] [phone] * POCT glucose (09/17/2021 4:52 PM CDT) GLUCOSE POC 102 70 - 139 MG/DL 09/17/2021 5:02 PM CDT [facility] 09/17/2021 4:52 PM CDT us Divya Dalal MD POCT ORDERABLES - DEVICE Final Result Performing Organization Address [facility]/ZIP Co de Phone Number [facility] [address] [place] [address], * FECAL BLOOD FIT DIAG (09/17/2021 4:20 PM CDT) [facility] FECAL BLOOD FIT DIAGNOSIS NEGATIVE NEGATIVE 09/17/2021 7:14 PM CDT [facility] STOOL SPECIMEN / Unknown 09/17/2021 4:20 PM CDT Divya Dalal MD BODY FLUIDS AND STOOLS ORDERABL ES Final Result Performing Organization Address [facility] de Phone Number [facility] [address] [place] [address], * (ABNORMAL) POCT glucose (09/17/2021 11:09 AM CDT) [facility] GLUCOSE POC 151(H) 70 - 139 MG/DL 09/17/2021 11:24 AM CDT [facility] 09/17/2021 11:0 9 AM CDT Divya Dalal MD POCT ORDERABLES - DEVICE Final Result Performing Organization Address [facility] de Phone Number [facility] [address] [place] [address], * USE ECHOCARDIOGRAM (09/17/2021 10:53 AM CDT) Anatomical Region Laterality Modality Cardiac Echocardiogram 09/17/2021 10:2 0 AM CDT Narrative 09/17/2021 11:21 AM CDT ?Echocardiography Report Pat.Name: ??INDY VALDEZ S ?Pat.ID: ?[id number] ? St.Date: ?? 09/17/2021 ? Refer.: ??[id number], JESSE Red ?? Exam Time: 10:20:00 AM ? Study Type:ECHO WITH CARDIAC DOPPLER COMP Height: ?64in ?Weight: ?139.71lb ? BSA: ? 1.68 m2 ?Age: ??1940,81Y ? Sex: ? FEMALE ?BP: ?132/61 ? Sonogrphr: Janel Starr RDCS ? Pat. Stat.:Inpatient ? Room: ?0607-01 ? CPT - 4: ?90937 ? Reason for Study: Heart failure, IE 33-1 SN [id number] / X5-1 SN [id number] Procedures: ??2D, M-mode, [...] 09/17/2021 Echocardiography Report Pat.Name: INDY VALDEZ Pat.ID: [id number] St.Date: 09/17/2021 Refer.: [id number], JESSE MASSEY H Exam Time: 10:20:00 AM Study Type:ECHO WITH CARDIAC DOPPLER COMP Height: 64in Weight: 139.71lb BSA: 1.68 m2 Age: 2 1940,81Y Sex: FEMALE BP: 132/61 Sonogrphr: Janel Starr [facility] Pat. Stat.:Inpatient Room: 606-06 CPT - 4: 34837 Reason for Study: Heart failure, IE 33-1 SN [id number] / X5-1 SN [id number] Procedures: 2D, M-mode, [...] Signed 09/17/2021 11:21 AM Koki Agarwal M.D. Divya Dalal MD ECHO Final Result * POCT glucose (09/17/2021 5:22 AM CDT) [facility] GLUCOSE POC 118 70 - 139 MG/DL 09/17/2021 5:34 AM CDT [facility] 09/17/2021 5:22 AM CDT Divya Dalal MD POCT ORDERABLES - DEVICE Final Result [facility] [address] [place] [address], * (ABNORMAL) BASIC METABOLIC PANEL (09/17/2021 4:58 AM CDT) SODIUM S/P/B 134(L) 136 - 145 MMOL/L 09/17/2021 5:52 AM CDT [facility] POTASSIUM S/P/B 3.3(L) 3.5 - 5.1 MMOL/L 09/17/2021 5:52 AM CDT [facility] CHLORIDE S/P/B 99 98 - 107 MMOL/L 09/17/2021 5:52 AM CDT [facility] CO2 31.0 21.0 - 32.0 MMOL/L 09/17/2021 5:52 AM T [facility] GLUCOSE 105 74 - 106 MG/DL 09/17/2021 5:52 AM [facility] BUN 15 7 - 18 MG/DL 09/17/2021 5:52 AM T [facility] CREATININE S/P/B 0.97 0.55 - 1.02 MG/DL 09/17/2021 5:52 AM [facility] CALCIUM S/P/B 8.1(L) 8.5 - 10.1 MG/DL 09/17/2021 5:52 AM [facility] ANION GAP 4.0(L) 5.0 - 15.0 MMOL/L 09/17/2021 5:52 AM [facility] OSMOLALITY (CALC) 279 MOSM/KG 022 5:52 AM [facility] Comment:REFERENCE RANGE NOT ESTABLISHED EGFR NON-AFR. AMER. 56(L) >89 ML/MIN/1. 73 M2 09/17/2021 5:52 AM [facility] EGFR AFR. AMER. 64(L) >89 ML/MIN/1. 73 M2 09/17/2021 5:52 AM [facility] GFR NOTES GFR REFERENCE S: 09/17/2021 5:52 AM [facility] Comment: THE ESTIMATED GFR [...] us Divya Dalal MD LABORATORY Final Result [facility] [address] [place] [address], * (ABNORMAL) CBC W/DIFF AUTOMATED (09/17/2021 4:58 AM CDT) WBC 8.3 4.6 - 9.1 x10'3/uL 09/17/2021 5:52 AM CDT [facility] RBC 3.93 3.90 - 5.00 x10'6/uL 09/17/2021 5:52 AM CDT [facility] HGB 8.1(L) 11.8 - 14.7 G/DL 09/17/2021 5:52 AM CDT [facility] HCT 27.8(L) 36.3 - 45.2 % 09/17/2021 5:52 AM CDT [facility] MCV 70.7(L) 80.0 - 98.0 FL 09/17/2021 5:52 AM CDT [facility] MCH 20.6(L) 26.8 - 32.1 PG 09/17/2021 5:52 AM CDT [facility] MCHC 29.1(L) 30.7 - 34.2 G/DL 09/17/2021 5:52 AM CDT [facility] RDW 24.9(H) 12.0 - 14.8 % 09/17/2021 5:52 AM CDT [facility] PLT 502(H) 145 - 358 x10'3/uL 09/17/2021 5:52 AM CDT [facility] MPV 8.8 8.8 - 12.3 FL 09/17/2021 5:52 AM CDT [facility] NRBC 0.2 % 09/17/2021 6:38 AM CDT [facility] BASOPHILS 1.5 % 09/17/2021 6:38 AM CDT [facility] EOSINOPHILS 2.3 % 09/17/2021 6:38 AM CDT [facility] MONOCYTES 12.7 % 09/17/2021 6:38 AM CDT [facility] LYMPHOCYTES 19.3 % 09/17/2021 6:38 AM CDT [facility] SEG NEUTROPHILS 63.8 % 6:38 AM CDT [facility] IMMATURE GRANS % 0.4 % 09/18/19 6:38 AM CDT [facility] ABS. LYMPHOCYTES 1.60 1.10 - 3.30 x10'3/uL 09/17/2021 6:38 AM CDT [facility] ABS. MONOCYTES 1.05(H) 0.30 - 0.80 x10'3/uL 09/17/2021 6:38 AM CDT [facility] ABS. EOSINOPHILS 0.19 0.03 - 0.45 x10'3/uL 09/17/2021 6:38 AM CDT [facility] ABS. BASOPHILS 0.12(H) 0.01 - 0.09 x10'3/uL 09/17/2021 6:38 AM CDT [facility] ABS. NUCLEATED RBC'S 0.02 0.00 - 0.12 x10'3/uL 09/17/2021 6:38 AM CDT [facility] ABS. NEUTROPHILS 5.30 2.30 - 5.70 x10'3/uL 09/17/2021 6:38 AM CDT [facility] ABS. IMMATURE GRANULOCYTES 0.03 0.00 - 0.09 x10'3/uL 09/17/2021 6:38 AM CDT [facility] RBC MORPHOLOGY 2+ 09/17/2021 6:38 AM CDT [facility] Comment: ANISOCYTOSIS 1+ POLYCHROMASIA 1+ HYPOCHROMASIA 1+ TARGET CELLS 1+ OVALOCYTES 09/17/2021 4:58 AM CDT us Divya Dalal MD LABORATORY Final Result Performing Organization Address City/[facility]/ZIP Co de Phone Number [facility] [address] [place] [address], [place] [phone] * MAGNESIUM (09/17/2021 4:58 AM CDT) [facility] MAGNESIUM 2.1 1.6 - 2.6 MG/DL 09/17/2021 5:52 AM CDT [facility] 09/17/2021 4:58 AM CDT us Divya Dalal MD LABORATORY Final Result Performing Organization Address [facility] Co de Phone Number [facility] [address] [place] [address], [place] [phone] * (ABNORMAL) POCT glucose (09/16/2021 8:32 PM CDT) [facility] GLUCOSE POC 151(H) 70 - 139 MG/DL 09/16/2021 8:38 PM CDT [facility] 09/16/2021 8:32 PM CDT us Divya Dalal MD POCT ORDERABLES - DEVICE Final Result Performing Organization Address City/[facility] Co de Phone Number [facility] [address] [place] [address], [place] [phone] * (ABNORMAL) CBC W/DIFF AUTOMATED (09/16/2021 7:36 PM CDT) [facility] WBC 10.3(H) 4.6 - 9.1 x10'3/uL 09/16/2021 8:47 PM CDT [facility] RBC 4.11 3.90 - 5.00 x10'6/uL 09/16/2021 8:47 PM CDT [facility] HGB 8.4(L) 11.8 - 14.7 G/DL 09/16/2021 8:47 PM CDT [facility] HCT 29.4(L) 36.3 - 45.2 % 09/16/2021 8:47 PM CDT [facility] Comment:RECHECKED MCV 71.5(L) 80.0 - 98.0 FL 09/16/2021 8:47 PM CDT [facility] Comment:RECHECKED MCH 20.4(L) 26.8 - 32.1 PG 09/16/2021 8:47 PM CDT [facility] Comment:RECHECKED MCHC 28.6(L) 30.7 - 34.2 G/DL 09/16/2021 8:47 PM CDT [facility] RDW 25.5(H) 12.0 - 14.8 % 09/16/2021 8:47 PM CDT [facility] PLT 548(H) 145 - 358 x10'3/uL 09/16/2021 8:47 PM CDT [facility] MPV 8.6(L) 8.8 - 12.3 FL 09/16/2021 8:47 PM CDT [facility] NRBC 0.5 % 09/16/2021 9:58 PM CDT [facility] BASOPHILS 1.4 % 09/16/2021 9:58 PM CDT [facility] EOSINOPHILS 1.1 % 09/16/2021 9:58 PM CDT [facility] MONOCYTES 11.2 % 09/16/2021 9:58 PM CDT [facility] LYMPHOCYTES 16.6 % 09/16/2021 9:58 PM CDT [facility] SEG NEUTROPHILS 69.2 % 9:58 PM CDT [facility] IMMATURE GRANS % 0.5 % 09/17/19 9:58 PM CDT [facility] ABS. NUCLEATED RBC'S 0.05 0.00 - 0.12 x10'3/uL 09/16/2021 9:58 PM CDT [facility] ABS. BASOPHILS 0.14(H) 0.01 - 0.09 x10'3/uL 09/16/2021 9:58 PM CDT [facility] ABS. EOSINOPHILS 0.11 0.03 - 0.45 x10'3/uL 09/16/2021 9:58 PM CDT [facility] ABS. MONOCYTES 1.15(H) 0.30 - 0.80 x10'3/uL 09/16/2021 9:58 PM CDT [facility] ABS. LYMPHOCYTES 1.71 1.10 - 3.30 x10'3/uL 09/16/2021 9:58 PM CDT [facility] ABS. NEUTROPHILS 7.13(H) 2.30 - 5.70 x10'3/uL 09/16/2021 9:58 PM CDT [facility] ABS. IMMATURE GRANULOCYTES 0.05 0.00 - 0.09 x10'3/uL 09/16/2021 9:58 PM CDT [facility] RBC MORPHOLOGY 1+ 09/16/2021 9:58 PM CDT [facility] Comment: SCHISTOCYTES 2+ ANISOCYTOSIS 3+ HYPOCHROMASIA 09/16/2021 7:36 PM CDT us Divya Dalal MD LABORATORY Final Result [facility] [address] [place] [address], [place] [phone] * TRANSFUSE RED BLOOD CELLS (09/16/2021 6:40 PM CDT) us Divya Dalal MD NURSING TREATMENT ORDERABLES - BLOOD ADMIN Final Result * (ABNORMAL) POCT glucose (09/16/2021 4:25 PM CDT) GLUCOSE POC 229(H) 70 - 139 MG/DL 09/16/2021 4:34 PM CDT [facility] 09/16/2021 4:25 PM CDT us Divya Dalal MD POCT ORDERABLES - DEVICE Final Result Performing Organization Address [facility] Co de Phone Number [facility] [address] [place] [address], * TRANSFUSE RED BLOOD CELLS (09/16/2021 12:49 [...] - 139 MG/DL 09/16/2021 10:43 AM CDT [facility] 09/16/2021 10:3 6 AM CDT us Divya Dalal MD POCT ORDERABLES - DEVICE Final Result Performing Organization Address [facility]/ZIP Co de Phone Number [facility] [address] [place] [address], * OSMOLALITY, URINE (09/16/2021 10:05 AM CDT) OSMOLALITY (U) 198 50 - 1,200 MOSM/KG 09/16/2021 11:18 AM CDT [facility] URINE SPECIMEN / Unknown 09/16/2021 10:05 AM CDT us Divya Dalal MD URINE ORDERABLES Final Result Performing Organization Address [facility]/ZIP Co de Phone Number [facility] [address] [place] [address], [place] [phone] * CREATININE URINE RANDOM (09/16/2021 10:05 AM CDT) CREATININE (U) <13.0 MG/DL 09/16/2021 11:27 AM CDT [facility] Comment:REFERENCE RANGE NOT ESTABLISHED URINE SPECIMEN / Unknown 09/16/2021 10:05 AM CDT us Divya Dalal MD URINE ORDERABLES Final Result Performing Organization Address [facility] Co de Phone Number [facility] [address] [place] [address], [place] [phone] * SODIUM URINE RANDOM (09/16/2021 10:05 AM CDT) NA RANDOM (U) 65 MMOL/L 09/16/2021 11:27 AM CDT [facility] Comment:REFERENCE RANGE NOT ESTABLISHED URINE SPECIMEN / Unknown 09/16/2021 10:05 AM CDT us Divya Dalal MD URINE ORDERABLES Final Result Performing Organization Address [facility] Co de Phone Number [facility] [address] [place] [address], [place] [phone] * CTA CHEST (09/16/2021 6:26 AM CDT) [...] DESCRIPTION BLOOD: LAC 09/16/2021 5:54 AM CDT [facility] SPECIAL REQUESTS NO SPECIAL REQUEST 09/16/2021 5:54 AM CDT [facility] CULTURE RESULT NO GROWTH 6 DAYS 09/22/2021 6:47 AM CDT [facility] BLOOD SPECIMEN OBTAINED FOR BLOOD CULTURE / Unknown 09/16/2021 6:02 AM CDT 09/16/2021 6:10 AM CDT Comment:SIGIFREDO us Shilpa Chung MD MICROBIOLOGY - GENERAL ORDERABLE S Final Result [facility] [address] [place] [address], [place] [phone] * CULTURE, BACTERIA, BLOOD (09/16/2021 6:02 AM CDT) SPEC DESCRIPTION BLOOD: RAC 09/16/2021 5:54 AM CDT [facility] SPECIAL REQUESTS NO SPECIAL REQUEST 09/16/2021 5:54 AM CDT [facility] CULTURE RESULT NO GROWTH 6 DAYS 09/22/2021 6:47 AM CDT [facility] BLOOD SPECIMEN OBTAINED FOR BLOOD CULTURE / Unknown 09/16/2021 6:02 AM CDT 09/16/2021 6:09 AM CDT Comment:KAELYN us Shilpa Chung MD MICROBIOLOGY - GENERAL ORDERABLE S Final Result [facility] [address] [place] [address], * XR CHEST PORTABLE (09/16/2021 5:42 AM [...] UNITS ORDERED 3 09/16/2021 6:15 AM CDT [facility] ABO/RH O POSITIVE 09/16/2021 6:15 AM CDT [facility] ANTIBODY SCREEN NEGATIVE 6:40 AM CDT [facility] SAMPLE EXPIRATION 09/19/2021,2359 09/16/2021 6:15 AM CDT [facility] BLOOD UNIT NUMBER [id number] 09/16/2021 6:43 AM CDT [facility] PRODUCT: PC LEUKOPOOR 09/16/2021 6:43 AM CDT [facility] UNIT DIVISION 00 09/16/2021 6:43 AM CDT [facility] BLOOD UNIT STATUS UNIT RELEASED 09/20/2021 8:16 AM CDT [facility] TRANSFUSION STATUS OK TO TRANSFUSE 09/16/2021 6:43 AM CDT [facility] CROSSMATCH COMPATIBLE 09/16/2021 6:43 AM CDT [facility] BLOOD UNIT NUMBER [id number] 09/16/2021 6:43 AM CDT [facility] PRODUCT: PC LEUKOPOOR 09/16/2021 6:43 AM CDT [facility] UNIT DIVISION 00 09/16/2021 6:43 AM CDT [facility] BLOOD UNIT STATUS TRANSFUSED,FINAL 09/17/2021 10:53 AM CDT [facility] ISSUE DATE/TIME [id number] 10:53 AM CDT [facility] PRODUCT CODE [id number] 09/17/2021 10:53 AM CDT [facility] ABO/RH Unit O POS 09/17/2021 10:53 AM CDT [facility] ABO/RH UNIT ISBT CODE 5100 09/17/2021 10:53 AM CDT [facility] BLOOD UNIT EXPIRATION DATE [id number] 09/17/2021 10:53 AM CDT [facility] TRANSFUSION STATUS OK TO TRANSFUSE 09/16/2021 6:43 AM CDT [facility] CROSSMATCH COMPATIBLE 09/16/2021 6:43 AM CDT [facility] BLOOD UNIT NUMBER [id number] 09/16/2021 6:43 AM CDT [facility] PRODUCT: PC LEUKOPOOR 09/16/2021 6:43 AM CDT [facility] UNIT DIVISION 00 09/16/2021 6:43 AM CDT [facility] BLOOD UNIT STATUS TRANSFUSED,FINAL 09/17/2021 10:53 AM CDT [facility] ISSUE DATE/TIME [id number] 10:53 AM CDT [facility] PRODUCT CODE [id number] 09/17/2021 10:53 AM CDT [facility] ABO/RH Unit O POS 09/17/2021 10:53 AM CDT [facility] ABO/RH UNIT ISBT CODE 5100 09/17/2021 10:53 AM CDT [facility] BLOOD UNIT EXPIRATION DATE [id number] 09/17/2021 10:53 AM CDT [facility] TRANSFUSION STATUS OK TO TRANSFUSE 09/16/2021 6:43 AM CDT [facility] CROSSMATCH COMPATIBLE 09/16/2021 6:43 AM CDT [facility] 09/16/2021 5:29 AM CDT Shilpa Chung MD BLOOD BANK TEST ORDERABLES Final Result Performing Organization Address [facility] Co de Phone Number [facility] [address] [place] [address], * THYROID STIM HORMONE, TSH (09/16/2021 5:15 AM CDT) TSH 2.110 0.358 - 3.740 uIU/ML 09/16/2021 8:35 AM CDT [facility] 09/16/2021 5:15 AM CDT Divya Dalal MD LABORATORY Final Result Performing Organization Address [facility] Co de Phone Number [facility] [address] [place] [address], * (ABNORMAL) FERRITIN (09/16/2021 5:15 AM CDT) FERRITIN 7.7(L) 8.0 - 252.0 NG/ML 09/16/2021 8:35 AM CDT [facility] 09/16/2021 5:15 AM CDT Divya Dalal MD LABORATORY Final Result Performing Organization Address [facility] Co de Phone Number [facility] [address] [place] [address], * (ABNORMAL) IRON SAT PANEL (IRON,IBC,%SAT) (09/16/2021 5:15 AM CDT) [facility] IRON 14(L) 50 - 170 MCG/DL 09/16/2021 8:35 AM CDT [facility] IRON BINDING CAPACITY 594(H) 250 - 450 MCG/DL 09/16/2021 8:35 AM CDT [facility] IRON SATURATION 2 % 8:35 AM CDT [facility] Comment:REFERENCE RANGE NOT ESTABLISHED 09/16/2021 5:15 AM CDT Divya Dalal MD LABORATORY Final Result [facility] [address] [place] [address], * RESPIRATORY PCR PANEL 2 (09/16/2021 5:10 AM CDT) [facility] ADENOVIRUS PCR (RESP) NOT DETECTED NOT DETECTED 09/16/2021 6:47 AM CDT [facility] CORONAVIRUS 229E PCR (RESP) NOT DETECTED NOT DETECTED 09/16/2021 6:47 AM CDT [facility] CORONAVIRUS HKU1 PCR (RESP) NOT DETECTED NOT DETECTED 09/16/2021 6:47 AM CDT [facility] CORONAVIRUS NL63 PCR (RESP) NOT DETECTED NOT DETECTED 09/16/2021 6:47 AM CDT [facility] CORONAVIRUS OC43 PCR (RESP) NOT DETECTED NOT DETECTED 09/16/2021 6:47 AM CDT [facility] METAPNEUMOVIRUS PCR (RESP) NOT DETECTED NOT DETECTED 09/16/2021 6:47 AM CDT [facility] RHINOVIRUS/ENTEROV IRUS PCR (RESP) NOT DETECTED NOT DETECTED 09/16/2021 6:47 AM CDT [facility] INFLUENZA A PCR (RESP) NOT DETECTED NOT DETECTED 09/16/2021 6:47 AM CDT [facility] INFLUENZA B PCR (RESP) NOT DETECTED NOT DETECTED 09/16/2021 6:47 AM CDT [facility] PARAINFLUENZA 1 PCR (RESP) NOT DETECTED NOT DETECTED 09/16/2021 6:47 AM CDT [facility] PARAINFLUENZA 2 PCR (RESP) NOT DETECTED NOT DETECTED 09/16/2021 6:47 AM CDT [facility] PARAINFLUENZA 3 PCR (RESP) NOT DETECTED NOT DETECTED 09/16/2021 6:47 AM CDT [facility] PARAINFLUENZA 4 PCR (RESP) NOT DETECTED NOT DETECTED 09/16/2021 6:47 AM CDT [facility] RSV PCR (RESP) NOT DETECTED NOT DETECTED 09/16/2021 6:47 AM CDT [facility] B PARAPERTUSIS PCR (RESP) NOT DETECTED NOT DETECTED 09/16/2021 6:47 AM CDT [facility] BORDETELLA PERTUSSIS PCR (RESP) NOT DETECTED NOT DETECTED 09/16/2021 6:47 AM CDT [facility] CHLAMYDOPHILA PNEUMONIAE PCR (RESP) NOT DETECTED NOT DETECTED 09/16/2021 6:47 AM CDT [facility] MYCOPLASMA PNEUMONIAE PCR (RESP) NOT DETECTED NOT DETECTED 09/16/2021 6:47 AM CDT [facility] CORONAVIRUS SARS COV 2 PCR (RESP) NOT DETECTED NOT DETECTED 09/16/2021 6:47 AM CDT [facility] FIRST TEST UNKNOWN 09/16/2021 5:16 AM CDT [facility] EMPLOYED IN HEALTHCARE UNKNOWN 09/16/2021 5:16 AM CDT [facility] SYMPTOMATIC DEFINED BY CDC UNKNOWN 09/16/2021 5:16 AM CDT [facility] HOSPITALIZATION STATUS UNKNOWN 09/16/2021 5:16 AM CDT [facility] PATIENT IN ICU UNKNOWN 09/16/2021 5:35 AM CDT [facility] RESIDENT OF CONGREGATE CARE UNKNOWN 09/16/2021 5:16 AM CDT [facility] NASOPHARYNGEAL SWAB / Unknown 09/16/2021 5:10 AM CDT us Shilpa Chung MD MICROBIOLOGY - GENERAL ORDERABLE S Final Result [facility] [address] [place] [address], * (ABNORMAL) PRO-BRAIN NATRIURETIC PEPTIDE (09/16/2021 5:08 AM CDT) PRO-B TYPE NATRIURETIC PEPTIDE 650(H) <450 PG/ML 09/16/2021 5:49 AM CDT [facility] Comment: CUT POINTS ESTABLISHED [...] us Shilpa Chung MD LABORATORY Final Result [facility] [address] [place] [address], [place] [phone] * TROPONIN, QUANT (09/16/2021 5:08 AM CDT) TROPONIN I HIGH SENSITIVITY 7 0 - 53 ng/L 09/16/2021 5:49 AM CDT [facility] 09/16/2021 5:08 AM CDT Shilpa Chung MD LABORATORY Final Result [facility] [address] [place] [address], [place] [phone] * (ABNORMAL) COMPREHENSIVE METABOLIC PANEL (09/16/2021 5:08 AM CDT) SODIUM S/P/B 125(L) 136 - 145 MMOL/L 09/16/2021 5:49 AM CDT [facility] POTASSIUM S/P/B 3.8 3.5 - 5.1 MMOL/L 09/16/2021 5:49 AM CDT [facility] CHLORIDE S/P/B 94(L) 98 - 107 MMOL/L 09/16/2021 5:49 AM CDT [facility] CO2 25.0 21.0 - 32.0 MMOL/L 09/16/2021 5:49 AM CDT [facility] GLUCOSE 151(H) 74 - 106 MG/DL 09/16/2021 5:49 AM CDT [facility] BUN 17 7 - 18 MG/DL 09/16/2021 5:49 AM CDT [facility] CREATININE S/P/B 0.95 0.55 - 1.02 MG/DL 09/16/2021 5:49 AM CDT [facility] CALCIUM S/P/B 8.1(L) 8.5 - 10.1 MG/DL 09/16/2021 5:49 AM CDT [facility] BILIRUBIN TOTAL S/P/B 0.6 0.2 - 1.0 MG/DL 09/16/2021 5:49 AM CDT [facility] ALKALINE PHOSPHATASE S/P/B 121(H) 45 - 117 U/L 09/16/2021 5:49 AM CDT [facility] AST 25 15 - 37 U/L 09/16/2021 5:49 AM CDT [facility] ALT 31 13 - 56 U/L 09/16/2021 5:49 AM CDT [facility] TOTAL PROTEIN S/P/B 7.4 6.4 - 8.2 G/DL 09/16/2021 5:49 AM CDT [facility] ALBUMIN S/P/B 3.6 3.4 - 5.0 G/DL 09/16/2021 5:49 AM CDT [facility] ANION GAP 6.0 5.0 - 15.0 MMOL/L 09/16/2021 5:49 AM T [facility] OSMOLALITY (CALC) 264 MOSM/KG 022 5:49 AM T [facility] Comment:REFERENCE RANGE NOT ESTABLISHED EGFR NON-AFR. AMER. 57(L) >89 ML/MIN/1. 73 M2 09/16/2021 5:49 AM T [facility] EGFR AFR. AMER. 66(L) >89 ML/MIN/1. 73 M2 09/16/2021 5:49 AM T [facility] GFR NOTES GFR REFERENCE S: 09/16/2021 5:49 AM T [facility] Comment: THE ESTIMATED GFR [...] MD LABORATORY Final Result Performing Organization Address City/[facility]/ZIP Co de Phone Number [facility] [address] [place] [address], [place] [phone] * PARTIAL THROMBOPLASTIN TIME,PTT (09/16/2021 5:08 AM CDT) PTT 36.2 21.8 - 36.8 SEC 09/16/2021 5:47 AM CDT [facility] 09/16/2021 5:08 AM CDT us Shilpa Chung MD LABORATORY Final Result Performing Organization Address [facility] Co de Phone Number [facility] [address] [place] [address], * PROTIME/INR, VENOUS (09/16/2021 5:08 AM CDT) PROTIME 14.3 11.8 - 14.7 SEC 09/16/2021 5:46 AM CDT [facility] INR 1.1 09/16/2021 5:46 AM CDT [facility] 09/16/2021 5:08 AM CDT us Shilpa Chung MD LABORATORY Final Result Performing Organization Address City/[facility]/ZIP Co de Phone Number [facility] [address] [place] [address], [place] [phone] * (ABNORMAL) CBC W/DIFF AUTOMATED (09/16/2021 5:08 AM CDT) WBC 12.4(H) 4.6 - 9.1 x10'3/uL 09/16/2021 5:24 AM CDT [facility] RBC 3.39(L) 3.90 - 5.00 x10'6/uL 09/16/2021 5:24 AM CDT [facility] HGB 5.8(LL) 11.8 - 14.7 G/DL 09/16/2021 5:24 AM CDT [facility] Comment: CRITICAL VALUE VERIFIED, CALLED TO, AND READ BACK BY: JOE MACKENZIE RN HCT 21.7(L) 36.3 - 45.2 % 09/16/2021 5:24 AM CDT [facility] MCV 64.0(L) 80.0 - 98.0 FL 09/16/2021 5:24 AM CDT [facility] MCH 17.1(L) 26.8 - 32.1 PG 09/16/2021 5:24 AM CDT [facility] MCHC 26.7(L) 30.7 - 34.2 G/DL 09/16/2021 5:24 AM CDT [facility] RDW 19.1(H) 12.0 - 14.8 % 09/16/2021 5:24 AM CDT [facility] PLT 609(H) 145 - 358 x10'3/uL 09/16/2021 5:24 AM CDT [facility] MPV 8.4(L) 8.8 - 12.3 FL 09/16/2021 5:24 AM CDT [facility] NRBC 0.2 % 09/16/2021 6:06 AM CDT [facility] BASOPHILS 1.1 % 09/16/2021 6:06 AM CDT [facility] EOSINOPHILS 0.9 % 09/16/2021 6:06 AM CDT [facility] MONOCYTES 8.7 % 09/16/2021 6:06 AM CDT [facility] LYMPHOCYTES 13.8 % 09/16/2021 6:06 AM CDT [facility] SEG NEUTROPHILS 74.9 % 6:06 AM CDT [facility] IMMATURE GRANS % 0.6 % 09/17/19 6:06 AM CDT [facility] ABS. LYMPHOCYTES 1.71 1.10 - 3.30 x10'3/uL 09/16/2021 6:06 AM CDT [facility] ABS. MONOCYTES 1.08(H) 0.30 - 0.80 x10'3/uL 09/16/2021 6:06 AM CDT [facility] ABS. EOSINOPHILS 0.11 0.03 - 0.45 x10'3/uL 09/16/2021 6:06 AM CDT [facility] ABS. BASOPHILS 0.14(H) 0.01 - 0.09 x10'3/uL 09/16/2021 6:06 AM CDT [facility] ABS. NUCLEATED RBC'S 0.02 0.00 - 0.12 x10'3/uL 09/16/2021 6:06 AM CDT [facility] ABS. NEUTROPHILS 9.29(H) 2.30 - 5.70 x10'3/uL 09/16/2021 6:06 AM CDT [facility] ABS. IMMATURE GRANULOCYTES 0.07 0.00 - 0.09 x10'3/uL 09/16/2021 6:06 AM CDT [facility] RBC MORPHOLOGY 2+ 09/16/2021 6:06 AM CDT [facility] Comment: ANISOCYTOSIS 2+ MICROCYTES 1+ POLYCHROMASIA 1+ HYPOCHROMASIA 09/16/2021 5:08 AM CDT Shilpa Chung MD LABORATORY Final Result [facility] [address] [place] [address], * ECG 12 lead (09/16/2021 5:05 AM CDT) 09/16/2021 5:05 AM CDT Narrative [facility] - 09/16/2021 7:22 AM CDT ?[facility] ? Test Date: ?2021-09-16 Pat Name: ? INDY COURTNEY ?Department: ?? 68 ? Room: ? [id number] Gender: ? F ?Repairer Veneer Sheet: ?? Lh : ?1940 ? Requested By: ?? Order Number: [id number] ? Reading MD: ?? Ronnie Patterson ? Measurements Intervals ?Ryder ? Rate: ? 92 ? P: ?59 UT: ? 165 ?QRS: ?41 QRSD: ? 92 ? T: ?50 QT: ? 375 ? QTc: ?466 ? Interpretive Statements SINUS RHYTHM MINIMAL ST DEPRESSION [0.025+ mV ST DEPRESSION] No previous ECG available for comparison Procedure Note Ronnie Patterson MD - 09/16/2021 [facility] Test Date: 2021-09-16 Pat Name: INDY VALDEZ Department: 68 Room: [place] [address] Gender: F Repairer Veneer Sheet: : 1940 Requested By: Order Number: [id number] Reading MD: Ronnie Patterson Measurements Intervals Ryder Rate: 92 P: 59 UT: 165 QRS: 41 QRSD: 92 T: 50 QT: 375 QTc: 466 Interpretive Statements SINUS RHYTHM MINIMAL ST DEPRESSION [0.025+ mV ST DEPRESSION] No previous ECG available for comparison Shilpa Chung MD ECG ORDERABLES Final Result [facility] documented in this encounter Visit Diagnoses Diagnosis CHF (congestive heart failure) ([facility])- Primary Congestive heart failure, unspecified Pneumonia Pneumonia, [...] 0600, Last dose on Thu09/20/21 at 0600 [facility] 09/18/2021 5:08 AM CDT 500 mg 250 mL/h r [facility] 09/17/2021 5:15 AM CDT 500 mg 250 mL/hr [facility] 09/16/2021 6:12 AM CDT 500 mg 250 [...] Once, 1 dose, On Thu09/16/21 at 0600 [facility] 09/16/2021 6:12 AM CDT 1 g 100 [...] Notify Provider) 1136 (Not Given - Provider: aKtt Jerome RN - Reason: Order parameters not [...] documented as of this encounter Care Teams Special Projects Coordinator Relationship Specialty Start Date End Date Cedric Hercules MD [address] [place] [address] PCP - General FAMILY PRACTICE 09/16/21 documented as of this encounter
--- OUTSIDE RECORDS SUMMARY | 2024-05-24 20:51 | XMS_ITS | Clinical Summary ---
Author Organization [facility] Address [address] [facility] [address] [place] [address] Care Team Providers Care Internal Review And Audit Compliance Name Role Phone Cedric Nguyen MD Primary Care Provider [phone] Source Comments [facility],non-owned Affiliates and Associated Physician Practices is amultiple site organization consisting of ambulatory clinics and hospital sitesin [place], [place], [place] and [place]. This disclosure is being madepursuant to the Care Everywhere program and may not contain all information available regarding this patient. Last updated 18.[facility] Medications * Be aware that medications may [...] age to complete this topic Care Teams Internal Review And Audit Compliance Relationship Specialty Start Date End Date Cedric Nguyen MD [address] [place] [address] PCP - General 09/17/16
--- OUTSIDE RECORDS SUMMARY | 2024-05-24 20:51 | XMS_ITS | Encounter Summary ---
Author Organization [facility] Address [address] [place] [address] Care Team Providers Care Outboard Motor Assembler Name Role Phone Cedric Nguyen MD Primary Care Provider [phone] Encounter Details Date Type Department Care Team (Late st Contact Info) Description 08/19/2017 Hospital Outpatient Visit Historic [facility] SERVICES [address] [place] [phone] Amy Hu MD [address] [facility] 2L [place] [address] Discharge Disposition: Home or Self Care Social [...] on filedocumented in this encounter Care Teams Outboard Motor Assembler Relationship Specialty Start Date End Date Cedric Nguyen MD [address] [place] [phone] PCP - General 09/17/16 documented as of this encounter
--- OUTSIDE RECORDS SUMMARY | 2024-05-24 20:51 | XMS_ITS | Referral Summary ---
Author Organization [email or web address] Address [address] [place] [address] Care Team Providers Care Entry Processor Name Role Phone Cedric Nguyen MD Primary Care Provider [phone] Source Comments [email or web address],non-owned Affiliates and Associated Physician Practices is amultiple site organization consisting of ambulatory clinics and hospital sitesin [place], [place], [place] and [place]. This disclosure is being madepursuant to the Care Everywhere program and may not contain all information available regarding this patient. Last updated 18.[email or web address] Medications * Be aware that medications may [...] of Treatment Not on file Care Teams Entry Processor Relationship Specialty Start Date End Date Cedric Nguyen MD [address] [place] [phone] [facility] - General 09/17/16
--- OUTSIDE RECORDS SUMMARY | 2024-05-24 20:51 | XMS_ITS | Encounter Summary ---
Author Organization [facility] Address [address] [place] [address] [place] [address] Care Team Providers Care Rejogger Name Role Phone Cedric Nguyen MD Primary Care Provider [phone] Encounter Details Date Type Department Care Team (Latest Contact Info) Description 09/24/2023 9:19 AM CDT - 09/24/2023 11:59 PM CDT Hospital Encounter [facility] [address] [place] [address] Ricardo Evans DO [address] [place] [address] Discharge Disposition: Home or Self Care (Routine [...] Chronic combined systolic and diastolic heart failure ([facility] HHS/HCC) Diabetes mellitus ([facility]) Acute gastrointestinal hemorrhage Iron deficiency [...] 6.5(H) <5.7 % 09/24/2023 12:21 PM CDT [facility] ESTIMATED AVG GLUCOSE 140(H) 74 - 114 MG/DL 09/24/2023 12:21 PM CDT [facility] 09/24/2023 6:46 AM CDT [facility] LABORAT[facility] Final Result Performing Organization Address City/[facility]/ZIP Co de Phone Number [facility] [address] [place] [address], [place] [phone] * (ABNORMAL) THYROID STIM HORMONE, TSH (09/24/2023 6:46 AM CDT) TSH 9.138(H) 0.358 - 3.740 uIU/ML 09/24/2023 9:43 AM CDT [facility] Comment: ASSAY PERFORMED BY CHEMILUMINESCENT IMMUNOASSAY METHODOLOGY USING SIEMENS DIMENSION REAGENT. PATIENT RESULTS DETERMINED BY ASSAYS FROM DIFFERENT MANUFACTURERS AND/OR BY DIFFERENT METHODS MAY NOT BE COMPARABLE. 09/24/2023 6:46 AM CDT [facility] LABORATORY Final Result [facility] [address] [place] [address], [place] [phone] documented in this encounter Visit Diagnoses Diagnosis Chronic combined systolic and diastolic heart failure (CMS/HCC HHS/HCC) Chronic combined systolic and diastolic heart failure Diabetes mellitus ([facility] HHS/HCC) Type II or unspecified type diabetes mellitus without mention of complication, not stated as uncontrolled Acute gastrointestinal hemorrhage Hemorrhage of gastrointestinal tract, unspecified Iron deficiency anemia secondary to blood loss (chronic) documented in this encounter Care Teams Rejogger Relationship Specialty Start Date End Date Cedric Nguyen MD [address] [place] [address] PCP - General FAMILY PRACTICE 09/16/21 documented as of this encounter
--- OUTSIDE RECORDS SUMMARY | 2024-05-24 20:51 | XMS_ITS | Encounter Summary ---
Author Organization [facility] Address [address] [place] [address] Care Team Providers Care Folder Taper Operator Name Role Phone Cedric Nguyen MD Primary Care Provider [phone] Encounter Details Date Type Department Care Team (Latest Contact Info) Description 02/25/2017 [facility] Out[facility] Visit [facility] [address] [phone] Discharge Disposition: Home or Self Care Social [...] Anatomical Region Laterality Modality Other Julieta Osorio HOST-INDUSTRIAL RETROFIT DESIGNER VASCULAR LAB OR DERABLES documented in this encounter Visit Diagnoses Diagnosis Occlusion and stenosis of right carotid artery Occlusion and stenosis of carotid artery without mention of cerebral infarction Occlusion and stenosis of left carotid artery Occlusion and stenosis of carotid artery without mention of cerebral infarction documented in this encounter Care Teams Folder Taper Operator Relationship Specialty Start Date End Date Cedric Nguyen MD [address] [place] [address] PCP - General 09/17/16 documented as of this encounter
--- OUTSIDE RECORDS SUMMARY | 2024-05-24 20:51 | XMS_ITS | Encounter Summary ---
Author Organization [facility] Address [address] [facility] [place], [place] [address] [place] [address] Care Team Providers Care Afloat Cryptologic Manager Name Role Phone Cedric Nguyen MD Primary Care Provider [phone] Encounter Details Date Type Department Care Team [...] Assessment Author Status Yes 09/16/2021 8:09 AM aMría Brito RN Active documented as of this [...] documented as of this encounter Care Teams Afloat Cryptologic Manager Relationship Specialty Start Date End Date Cedric Nguyen MD [address] [place] [address] PCP - General FAMILY PRACTICE 09/16/21 documented as of this encounter
--- OUTSIDE RECORDS SUMMARY | 2024-05-24 20:51 | XMS_ITS | Encounter Summary ---
Author Organization [facility] Address [address] [facility] [place] [address] Care Team Providers Care Patient Financial Coordinator Name Role Phone Cedric Nguyen MD Primary Care Provider [phone] Encounter Details Date Type Department Care Team (Latest Contact Info) Description 08/19/2017 [facility] [address] [phone] Discharge Disposition: Home or Self Care Social [...] Anatomical Region Laterality Modality Other Julieta Osorio MARKETING PROJECT SPECIALIST-ENTRY LEVEL CIVIL ENGINEER VASCULAR LAB OR DERABLES documented in this encounter Visit Diagnoses Diagnosis Occlusion and stenosis of right carotid artery Occlusion and stenosis of carotid artery without mention of cerebral infarction Occlusion and stenosis of left carotid artery Occlusion and stenosis of carotid artery without mention of cerebral infarction documented in this encounter Care Teams Patient Financial Coordinator Relationship Specialty Start Date End Date Cedric Nguyen MD [address] [place] [address] PCP - General 09/17/16 documented as of this encounter
--- OUTSIDE RECORDS SUMMARY | 2024-05-24 20:51 | XMS_ITS | Encounter Summary ---
Author Organization [facility] Address [address] [facility] [place] [address] [place] [address] Care Team Providers Care Chief Risk Officer Name Role Phone Cedric Nguyen MD Primary Care Provider [phone] Encounter Details Date Type Department Care Team (Late st Contact Info) Description 10/02/2023 Orders Only [facility] [address] [facility] [place] [address] Cedric Nguyen MD [address] [place], [place] [id number] Social History Tobacco Use Types Packs/Day Years [...] this encounter Visit Diagnoses Diagnosis Diabetes mellitus ([facility])- Primary Type II or unspecified type diabetes mellitus without mention of complication, not stated as uncontrolled Anemia, unspecified Chronic combined systolic and diastolic heart failure ([facility]) Chronic combined systolic and diastolic heart failure documented in this encounter Care Teams Chief Risk Officer Relationship Specialty Start Date End Date Cedric Nguyen MD [address] [place] [address] PCP - General FAMILY PRACTICE 09/16/21 documented as of this encounter
--- OUTSIDE RECORDS SUMMARY | 2024-05-24 20:51 | XMS_ITS | Encounter Summary ---
Author Organization [facility] Address [address] [facility] [address] [place] [address] Care Team Providers Care Test Conductor Name Role Phone Cedric Nguyen MD Primary Care Provider [phone] Encounter Details Date Type Department Care Team (Late st Contact Info) Description 03/19/2022 8:05 AM CDT - 03/19/2022 11:59 PM CDT Hospital Encounter [facility] [address] [place] [address] Cedric Nguyen MD [address] [place] [address] Discharge Disposition: Home or Self Care (Routine [...] - 10.8 x10'3/uL 03/19/2022 8:12 AM CDT [facility] RBC 3.86(L) 4.10 - 5.40 x10'6/uL 03/19/2022 8:12 AM CDT [facility] HGB 12.1 12.0 - 16.0 G/DL 03/19/2022 8:12 AM CDT [facility] HCT 36.5 36.0 - 47.0 % 03/19/2022 8:12 AM CDT [facility] MCV 94.6 78.0 - 100.0 FL 03/19/2022 8:12 AM CDT [facility] MCH 31.3(H) 27.0 - 31.0 PG 03/19/2022 8:12 AM CDT [facility] MCHC 33.2 33.0 - 36.0 G/DL 03/19/2022 8:12 AM CDT [facility] RDW 13.8 11.5 - 14.5 % 03/19/2022 8:12 AM CDT [facility] PLT 244 150 - 350 x10'3/uL 03/19/2022 8:12 AM CDT [facility] MPV 9.6 7.4 - 10.4 FL 03/19/2022 8:12 AM CDT [facility] DIFFERENTIAL COMMENT NORMAL REFERENCE RANGE NOT ESTABLISHED FOR THE PROPORTIONAL LEUKOCYTE DIFFERENTIAL. 03/19/2022 8:12 AM CDT [facility] SEG NEUTROPHILS 60.0 % 8:12 AM CDT [facility] LYMPHOCYTES 22.6 % 03/19/2022 8:12 AM CDT [facility] MONOCYTES 12.7 % 03/19/2022 8:12 AM CDT [facility] EOSINOPHILS 3.2 % 03/19/2022 8:12 AM CDT [facility] BASOPHILS 1.2 % 03/19/2022 8:12 AM CDT [facility] IMMATURE GRANS % 0.3 % 03/19/20 8:12 AM CDT [facility] NRBC 0.0 % 03/19/2022 8:12 AM CDT [facility] ABS. NEUTROPHILS 4.12 1.60 - 8.30 x10'3/uL 03/19/2022 8:12 AM CDT [facility] ABS. LYMPHOCYTES 1.55 0.80 - 4.70 x10'3/uL 03/19/2022 8:12 AM CDT [facility] ABS. MONOCYTES 0.87 0.00 - 1.50 x10'3/uL 03/19/2022 8:12 AM CDT [facility] ABS. EOSINOPHILS 0.22 0.00 - 0.40 x10'3/uL 03/19/2022 8:12 AM CDT [facility] ABS. BASOPHILS 0.08 0.00 - 0.20 x10'3/uL 03/19/2022 8:12 AM CDT [facility] ABS. IMMATURE GRANULOCYTES 0.02 0.00 - 0.03 x10'3/uL 03/19/2022 8:12 AM CDT [facility] ABS. NUCLEATED RBC'S 0.00 0.00 x10'3/uL 03/19/2022 8:12 AM CDT [facility] 03/19/2022 6:15 AM CDT us Cedric Nguyen MD LABORATORY Final Result [facility] [address] [email or web address] [address], documented in this encounter Visit Diagnoses Diagnosis Anemia, unspecified documented in this encounter Care Teams Test Conductor Relationship Specialty Start Date End Date Cedric Nguyen MD [address] [place] [address] PCP - General FAMILY PRACTICE 09/16/21 documented as of this encounter
--- OUTSIDE RECORDS SUMMARY | 2024-05-24 20:51 | XMS_ITS | Encounter Summary ---
Author Organization [facility] Address [address] [facility] [place] [address] Care Team Providers Care Hydrogen Power Plant Engineer Name Role Phone Cedric Nguyen MD Primary Care Provider [phone] Encounter Details Date Type Department Care Team (Late st Contact Info) Description 02/25/2017 Hospital Outpatient Visit Historic [facility] OUTPATIENT SERVICES [address] [place] [address] Julieta Osorio, LEAD MECHANICAL ENGINEERCAPITAL REGION [facility] [address] [phone] Discharge Disposition: Home or Self Care Social [...] on filedocumented in this encounter Care Teams Hydrogen Power Plant Engineer Relationship Specialty Start Date End Date Cedric Nguyen MD [address] [place] [address] PCP - General 09/17/16 documented as of this encounter
--- OUTSIDE RECORDS SUMMARY | 2024-05-24 20:51 | XMS_ITS | Encounter Summary ---
Author Organization [facility] Address [address] [place] [address] [place] [address] Care Team Providers Care Adult Services Librarian Name Role Phone Cedric Nguyen MD Primary Care Provider [phone] Encounter Details Date Type Department Care Team (Late st Contact Info) Description 10/02/2023 5:21 AM CDT - 10/02/2023 11:59 PM CDT Hospital Encounter [facility] [address] [facility] [place] [address] Cedric Nguyen MD [address] [place] [address] Discharge Disposition: Home or Self Care (Routine [...] Author Status No 09/16/2021 8:09 AM María Birto RN Active * Because of a physical, [...] this encounter Visit Diagnoses Diagnosis Diabetes mellitus ([facility]) Type II or unspecified type diabetes mellitus without mention of complication, not stated as uncontrolled Anemia, unspecified Chronic combined systolic and diastolic heart failure ([facility]) Chronic combined systolic and diastolic heart failure documented in this encounter Care Teams Adult Services Librarian Relationship Specialty Start Date End Date Cedric Nguyen MD [address] [place], [place] [id number] PCP - General FAMILY PRACTICE 09/16/21 documented as of this encounter
--- OUTSIDE RECORDS SUMMARY | 2024-05-24 20:51 | XMS_ITS | Encounter Summary ---
Author Organization [facility] Address [address] [facility] [place] [address] [place] [address] Care Team Providers Care Long Chain Dyeing Machine Operator Name Role Phone Cedric Nguyen MD Primary Care Provider [phone] Encounter Details Date Type Department Care Team (Late st Contact Info) Description 09/24/2023 Orders Only [facility] [address] [place] [address] Ricardo Evans, [address] [place] [address] Social History Tobacco Use Types Packs/Day Years [...] - 3.740 uIU/ML 09/24/2023 9:[address] [facility] Comment: ASSAY PERFORMED BY CHEMILUMINESCENT IMMUNOASSAY METHODOLOGY USING SIEMENS DIMENSION REAGENT. PATIENT RESULTS DETERMINED BY ASSAYS FROM DIFFERENT MANUFACTURERS AND/OR BY DIFFERENT METHODS MAY NOT BE COMPARABLE. 09/24/2023 6:46 AM CDT us Ricardo Evans DO LABORATORY Final Result [facility] [place] [address], * (ABNORMAL) HEMOGLOBIN, GLYCOSYLATED (09/24/2023 6:46 AM CDT) HGB A1C 6.5(H) <5.7 % 09/24/2023 12:21 PM CDT [facility] ESTIMATED AVG GLUCOSE 140(H) 74 - 114 MG/DL 09/24/2023 12:21 PM CDT [facility] 09/24/2023 6:46 AM CDT us Ricardo Evans DO LABORATORY Final Result [facility] [address] [place] [address], [id number] documented in this encounter Visit Diagnoses Diagnosis Chronic combined systolic and diastolic heart failure ([facility] HHS/HCC)- Primary Chronic combined systolic and diastolic heart failure Diabetes mellitus ([facility] HHS/HCC) Type II or unspecified type diabetes mellitus without mention of complication, not stated as uncontrolled Acute gastrointestinal hemorrhage Hemorrhage of gastrointestinal tract, unspecified Iron deficiency anemia secondary to blood loss (chronic) documented in this encounter Care Teams Long Chain Dyeing Machine Operator Relationship Specialty Start Date End Date Cedric Nguyen MD [address] [place] [address] PCP - General FAMILY PRACTICE 09/16/21 documented as of this encounter
--- OUTSIDE RECORDS SUMMARY | 2024-05-24 20:52 | XMS_ITS | Clinical Summary ---
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 Active omeprazole (PriLOSEC) 20 mg [...] 05/18/2024 Assessment & Plan (05/18/2024 7:53 AM EXECUTIVE WELLNESS PROGRAMS DIRECTOR): 05/16 removed Briscoe- void check 05/17 noted agitation per nursing, and frequent incontinence, Bladder Scan 650 mL, Briscoe catheter placed UTI (urinary tract infection) 05/17/2024 Assessment & Plan (05/18/2024 7:47 AM EXECUTIVE WELLNESS PROGRAMS DIRECTOR): 05/14 UA sent on admission, refluxed to CX 05/17 changed Cefepime to Keflex PO x 5 days (05/17-05/22) CX: 05/14 UCX: Klebsiella Pneumoniae ABX: Cefepime (05/14-05/17) Keflex (05/17-05/22) Pubic ramus fracture, right, closed, initial enc ounter 05/14/2024 Assessment & Plan (05/19/2024 1:46 PM EXECUTIVE WELLNESS PROGRAMS DIRECTOR): - Orthopedics consult, non-op management - WBAT RLE - Pain control - PT/OT PLAN: Follow up with Dr. Singh, 06/29/21 at 12:30 weight bearing as tolerated, post orthopedic injury DVT prophylaxis Eliquis 2.5 mg pO x 4 weeks at discharge Possible syncopal fall 05/14/2024 Assessment & Plan (05/17/2024 8:26 AM EXECUTIVE WELLNESS PROGRAMS DIRECTOR): - Orthostatics - TTE - Carotid duplex - F/u CT body read. ?Possible RUL consolidation on CXR + leukocytosis in ED for which she received a dose of cefepime in the ED 05/15: Syncope workup 05/16 Carotid ultrasounds completed- no interventions required 05/17 ECHO- results pending Discharge planning issues 05/14/2024 Assessment & Plan (05/19/2024 1:46 PM EXECUTIVE WELLNESS PROGRAMS DIRECTOR): 05/14 Admitted, syncope, PT/OT 05/16 poorly controlled pain, started schedule pain medications 05/17 agitation, Briscoe catheter placed for urinary retention 05/18 requiring 1:1 sitter 05/19 still requiring 1:1 sitter Treatment Plan completed Acute pain 05/14/2024 Assessment & Plan (05/14/2024 2:29 PM EXECUTIVE WELLNESS PROGRAMS DIRECTOR): 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 08/27/2022 Assessment & Plan (05/19/2024 12:09 PM EXECUTIVE WELLNESS PROGRAMS DIRECTOR): Continue home Celexa 20 daily, Seroquel 50 [...] 08/01/2019 Assessment & Plan (05/14/2024 1:42 PM EXECUTIVE WELLNESS PROGRAMS DIRECTOR): Continue home atorvastatin 10 daily Chronic low back pain 08/01/2019 Hypothyroid 08/01/2019 Assessment & Plan (05/14/2024 1:43 PM EXECUTIVE WELLNESS PROGRAMS DIRECTOR): Continue home levothyroxine 137mcg daily Memory changes 08/01/2019 Major depressive disorder 08/01/2019 Essential (primary) hypertension 11/18/2016 Atherosclerosis of both carotid arteries 017 Assessment & Plan (05/18/2024 7:51 AM EXECUTIVE WELLNESS PROGRAMS DIRECTOR): - History of R CEA (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 Vascular Lab IP [address] [facility] [address] [place] [address] 05/16/[address] [facility] Orthopaedic Surgery [address] 6th [place] [address] [place] [address] Ngoc Singh MD Pubic ramus fracture, right, closed, initial encounter (HCC) (Primary Dx) 05/14/2024 5:23 AM EXECUTIVE WELLNESS PROGRAMS DIRECTOR - 05/20/2024 6:45 PM EXECUTIVE WELLNESS PROGRAMS DIRECTOR Hospital Encounter [facility] [address] [place] [address] Kenneth Vallecillo MD Theodoro, Daniel L., MD Kronfli, Anthony Philip, MD Knight, Caleb, MD Pubic ramus fracture, right, open, initial encounter (HCC) (Primary Dx); Fall, initial encounter; Hypoxia; Rhinovirus Discharge Disposition: Discharge to SNF 03/17/2024 1:45 PM CDT Office Visit [facility] [address] 6th [address] [place] [address] Chad Boudreaux NP Late onset Alzheimer's disease [...] Tobacco: Never Tobacco Cessation:Counseling Given: Not Answered [facility] Utilities Answer Date Recorded In the past 12 months has e [employer], gas, oil, or water [employer] threatened to shut off services in your [...] often do you attend chur ch or spiritism services? Never 05/20/2024 Do you belong to any clubs o r organizations such as sikh groups, unions, fraternal or athletic groups, or [...] any time in the past 12 m [facility], were you homeless or living in [...] Comments Blood Pressure 116/100 05/20/2024 5:11 PM EXECUTIVE WELLNESS PROGRAMS DIRECTOR Pulse 99 05/20/2024 5:11 PM EXECUTIVE WELLNESS PROGRAMS DIRECTOR Temperature 37.2 ??C (99 ??F) 05/20/2024 5:11 PM EXECUTIVE WELLNESS PROGRAMS DIRECTOR Respiratory Rate 20 05/20/2024 5:11 PM EXECUTIVE WELLNESS PROGRAMS DIRECTOR Oxygen Saturation 92% 05/20/2024 5:11 PM EXECUTIVE WELLNESS PROGRAMS DIRECTOR Inhaled Oxygen Concentration - - Weight 100.7 kg (222 lb) 05/16/2024 9:35 PM EXECUTIVE WELLNESS PROGRAMS DIRECTOR Height 163.8 cm (5' 4.5 ) 05/16/2024 9:35 PM EXECUTIVE WELLNESS PROGRAMS DIRECTOR Body Mass Index 37.52 05/16/2024 9:35 PM EXECUTIVE WELLNESS PROGRAMS DIRECTOR Plan of Treatment Health Maintenance Due Date [...] GLUCOSE DEVICE Routine 05/20/2024 5 :16 PM EXECUTIVE WELLNESS PROGRAMS DIRECTOR POCT GLUCOSE DEVICE Routine 05/20/2024 1 1:11 AM EXECUTIVE WELLNESS PROGRAMS DIRECTOR POCT GLUCOSE DEVICE Routine 05/20/2024 7 :52 AM EXECUTIVE WELLNESS PROGRAMS DIRECTOR EGFR Routine 05/19/2024 10:37 PM EXECUTIVE WELLNESS PROGRAMS DIRECTOR BASIC METABOLIC PANEL Routine 05/19/2024 10:37 PM EXECUTIVE WELLNESS PROGRAMS DIRECTOR POCT GLUCOSE DEVICE Routine 05/19/2024 9 :07 PM EXECUTIVE WELLNESS PROGRAMS DIRECTOR POCT GLUCOSE DEVICE Routine 05/19/2024 5 :15 PM EXECUTIVE WELLNESS PROGRAMS DIRECTOR POCT GLUCOSE DEVICE Routine 05/19/2024 1 1:11 AM EXECUTIVE WELLNESS PROGRAMS DIRECTOR POCT GLUCOSE DEVICE Routine 05/19/2024 7 :27 AM EXECUTIVE WELLNESS PROGRAMS DIRECTOR EGFR Routine 05/18/2024 9:10 PM EXECUTIVE WELLNESS PROGRAMS DIRECTOR BASIC METABOLIC PANEL Routine 05/18/2024 9:10 PM EXECUTIVE WELLNESS PROGRAMS DIRECTOR PHOSPHORUS Routine 05/18/2024 9:10 PM EXECUTIVE WELLNESS PROGRAMS DIRECTOR MAGNESIUM Routine 05/18/2024 9:10 PM EXECUTIVE WELLNESS PROGRAMS DIRECTOR CBC WITHOUT DIFFERENTIAL Routine 05/18/2024 9:10 PM EXECUTIVE WELLNESS PROGRAMS DIRECTOR POCT GLUCOSE DEVICE Routine 05/18/2024 8 :55 PM EXECUTIVE WELLNESS PROGRAMS DIRECTOR POCT GLUCOSE DEVICE Routine 05/18/2024 5 :27 PM EXECUTIVE WELLNESS PROGRAMS DIRECTOR POCT GLUCOSE DEVICE Routine 05/18/2024 1 1:33 AM EXECUTIVE WELLNESS PROGRAMS DIRECTOR POCT GLUCOSE DEVICE Routine 05/18/2024 8 :55 AM EXECUTIVE WELLNESS PROGRAMS DIRECTOR POCT GLUCOSE DEVICE Routine 05/17/2024 9 :46 PM EXECUTIVE WELLNESS PROGRAMS DIRECTOR EGFR Routine 05/17/2024 9:33 PM EXECUTIVE WELLNESS PROGRAMS DIRECTOR BASIC METABOLIC PANEL Routine 05/17/2024 9:33 PM EXECUTIVE WELLNESS PROGRAMS DIRECTOR PHOSPHORUS Routine 05/17/2024 9:33 PM EXECUTIVE WELLNESS PROGRAMS DIRECTOR MAGNESIUM Routine 05/17/2024 9:33 PM EXECUTIVE WELLNESS PROGRAMS DIRECTOR CBC WITHOUT DIFFERENTIAL Routine 05/17/2024 9:33 PM EXECUTIVE WELLNESS PROGRAMS DIRECTOR POCT GLUCOSE DEVICE Routine 05/17/2024 9 :02 PM EXECUTIVE WELLNESS PROGRAMS DIRECTOR POCT GLUCOSE DEVICE Routine 05/17/2024 5 :22 PM EXECUTIVE WELLNESS PROGRAMS DIRECTOR POCT GLUCOSE DEVICE Routine 05/17/2024 1 1:53 AM EXECUTIVE WELLNESS PROGRAMS DIRECTOR POCT GLUCOSE DEVICE Routine 05/17/2024 8 :45 AM EXECUTIVE WELLNESS PROGRAMS DIRECTOR POTASSIUM, WHOLE BLOOD Routine 05/16/2024 11:23 PM EXECUTIVE WELLNESS PROGRAMS DIRECTOR POCT GLUCOSE DEVICE Routine 05/16/2024 8 :26 PM EXECUTIVE WELLNESS PROGRAMS DIRECTOR EGFR Routine 05/16/2024 8:26 PM EXECUTIVE WELLNESS PROGRAMS DIRECTOR BASIC METABOLIC PANEL Routine 05/16/2024 8:26 PM EXECUTIVE WELLNESS PROGRAMS DIRECTOR PHOSPHORUS Routine 05/16/2024 8:26 PM EXECUTIVE WELLNESS PROGRAMS DIRECTOR MAGNESIUM Routine 05/16/2024 8:26 PM EXECUTIVE WELLNESS PROGRAMS DIRECTOR CBC WITHOUT DIFFERENTIAL Routine 05/16/2024 8:26 PM EXECUTIVE WELLNESS PROGRAMS DIRECTOR POCT GLUCOSE DEVICE Routine 05/16/2024 6 :10 PM EXECUTIVE WELLNESS PROGRAMS DIRECTOR POCT GLUCOSE DEVICE Routine 05/16/2024 1 :34 PM EXECUTIVE WELLNESS PROGRAMS DIRECTOR US CAROTIDS DUPLEX BILATERAL IP Routine 05/16/2024 1:16 PM EXECUTIVE WELLNESS PROGRAMS DIRECTOR POCT GLUCOSE DEVICE Routine 05/16/2024 8 :21 AM EXECUTIVE WELLNESS PROGRAMS DIRECTOR EGFR Routine 05/15/2024 9:06 PM EXECUTIVE WELLNESS PROGRAMS DIRECTOR BASIC METABOLIC PANEL Routine 05/15/2024 9:06 PM EXECUTIVE WELLNESS PROGRAMS DIRECTOR PHOSPHORUS Routine 05/15/2024 9:06 PM EXECUTIVE WELLNESS PROGRAMS DIRECTOR MAGNESIUM Routine 05/15/2024 9:06 PM EXECUTIVE WELLNESS PROGRAMS DIRECTOR CBC WITHOUT DIFFERENTIAL Routine 05/15/2024 9:06 PM EXECUTIVE WELLNESS PROGRAMS DIRECTOR POCT GLUCOSE DEVICE Routine 05/15/2024 8 :48 PM EXECUTIVE WELLNESS PROGRAMS DIRECTOR POCT GLUCOSE DEVICE Routine 05/15/2024 5 :34 PM EXECUTIVE WELLNESS PROGRAMS DIRECTOR POCT GLUCOSE DEVICE Routine 05/15/2024 1 2:51 PM EXECUTIVE WELLNESS PROGRAMS DIRECTOR POCT GLUCOSE DEVICE Routine 05/15/2024 7 :55 AM EXECUTIVE WELLNESS PROGRAMS DIRECTOR POTASSIUM, WHOLE BLOOD Timed 05/14/2024 11:06 PM EXECUTIVE WELLNESS PROGRAMS DIRECTOR EGFR Routine 05/14/2024 9:02 PM EXECUTIVE WELLNESS PROGRAMS DIRECTOR BASIC METABOLIC PANEL Routine 05/14/2024 9:02 PM EXECUTIVE WELLNESS PROGRAMS DIRECTOR PHOSPHORUS Routine 05/14/2024 9:02 PM EXECUTIVE WELLNESS PROGRAMS DIRECTOR MAGNESIUM Routine 05/14/2024 9:02 PM EXECUTIVE WELLNESS PROGRAMS DIRECTOR CBC WITHOUT DIFFERENTIAL Routine 05/14/2024 9:02 PM EXECUTIVE WELLNESS PROGRAMS DIRECTOR POCT GLUCOSE DEVICE Routine 05/14/2024 6 :10 PM EXECUTIVE WELLNESS PROGRAMS DIRECTOR XR PELVIS 3 OR MORE VIEWS ED 05/14/2024 10:46 AM EXECUTIVE WELLNESS PROGRAMS DIRECTOR RESPIRATORY PATHOGEN PANEL Routine 05/14/2024 10:15 AM EXECUTIVE WELLNESS PROGRAMS DIRECTOR CT BODY OUTSIDE REFERENCE Routine 05/14/2024 10:12 AM EXECUTIVE WELLNESS PROGRAMS DIRECTOR URINALYSIS, MICROSCOPIC ONLY STAT 05/14/2024 10:12 AM EXECUTIVE WELLNESS PROGRAMS DIRECTOR URINE CULTURE STAT 05/14/2024 10:12 AM EXECUTIVE WELLNESS PROGRAMS DIRECTOR URINALYSIS AND REFLEX TO MICROSCOPIC AND CULTURE STAT 05/14/2024 10:12 AM EXECUTIVE WELLNESS PROGRAMS DIRECTOR XR CHEST 1 VIEW Critical/Life-T hreatening 05/14/2024 7:22 AM EXECUTIVE WELLNESS PROGRAMS DIRECTOR B CHECK SAMPLE STAT 05/14/2024 6:48 AM EXECUTIVE WELLNESS PROGRAMS DIRECTOR NEURO CT OUTSIDE CONSULT Routine 05/14/2024 6:09 AM EXECUTIVE WELLNESS PROGRAMS DIRECTOR NEURO CT OUTSIDE REFERENCE Routine 05/14/2024 6:04 AM EXECUTIVE WELLNESS PROGRAMS DIRECTOR CT BODY OUTSIDE CONSULT Routine 05/14/2024 5:59 AM EXECUTIVE WELLNESS PROGRAMS DIRECTOR XR TRANSFER OF OUTSIDE FILMS Routine 05/14/2024 5:56 AM EXECUTIVE WELLNESS PROGRAMS DIRECTOR XR TRANSFER OF OUTSIDE FILMS Routine 05/14/2024 5:48 AM EXECUTIVE WELLNESS PROGRAMS DIRECTOR CT BODY OUTSIDE REFERENCE Routine 05/14/2024 5:46 AM EXECUTIVE WELLNESS PROGRAMS DIRECTOR NEURO CT OUTSIDE REFERENCE Routine 05/14/2024 5:44 AM EXECUTIVE WELLNESS PROGRAMS DIRECTOR EGFR STAT 05/14/2024 5:35 AM EXECUTIVE WELLNESS PROGRAMS DIRECTOR DIFFERENTIAL AUTO STAT 05/14/2024 5:3 5 AM EXECUTIVE WELLNESS PROGRAMS DIRECTOR TYPE AND SCREEN STAT 05/14/2024 5:35 AM EXECUTIVE WELLNESS PROGRAMS DIRECTOR APTT STAT 05/14/2024 5:35 AM EXECUTIVE WELLNESS PROGRAMS DIRECTOR PROTIME-INR STAT 05/14/2024 5:35 AM EXECUTIVE WELLNESS PROGRAMS DIRECTOR COMPREHENSIVE METABOLIC PANEL STAT 05/14/2024 5:35 AM EXECUTIVE WELLNESS PROGRAMS DIRECTOR CBC WITH AUTO DIFFERENTIAL STAT 05/14/2024 5:35 AM EXECUTIVE WELLNESS PROGRAMS DIRECTOR from Last 3 Months Results * POCT glucose (05/20/2024 5:16 PM EXECUTIVE WELLNESS PROGRAMS DIRECTOR) Glucose, POC 126 70 - 199 mg/dL Blood 05/20/2024 5:16 PM EXECUTIVE WELLNESS PROGRAMS DIRECTOR 05/20/2024 5:16 PM EXECUTIVE WELLNESS PROGRAMS DIRECTOR Landy Sawant MD LAB POCT ORDERABLES - DEVICE Final Result Performing Organization Address City/[facility] Co de Phone Number [facility] [place] [address] * POCT glucose (05/20/2024 11:11 AM EXECUTIVE WELLNESS PROGRAMS DIRECTOR) Glucose, POC 118 70 - 199 mg/dL Blood 05/20/2024 11:1 1 AM EXECUTIVE WELLNESS PROGRAMS DIRECTOR 05/20/2024 11:11 AM EXECUTIVE WELLNESS PROGRAMS DIRECTOR Landy Sawant MD LAB POCT ORDERABLES - DEVICE Final Result [facility] [place] [address] * POCT glucose (05/20/2024 7:52 AM EXECUTIVE WELLNESS PROGRAMS DIRECTOR) Glucose, POC 125 70 - 199 mg/dL Blood 05/20/2024 7:52 AM EXECUTIVE WELLNESS PROGRAMS DIRECTOR 05/20/2024 7:52 AM EXECUTIVE WELLNESS PROGRAMS DIRECTOR us Landy Sawant MD LAB POCT ORDERABLES - DEVICE Final Result Performing Organization Address [facility] Phone Number [facility] Department [place] [address] * eGFR (05/19/2024 10:37 PM EXECUTIVE WELLNESS PROGRAMS DIRECTOR) eGFR 63 >=60 mL/min/1. 73 m2 Comment: [...] reviewed 2021. Blood 05/19/2024 10:3 7 PM EXECUTIVE WELLNESS PROGRAMS DIRECTOR 05/19/2024 10:53 PM EXECUTIVE WELLNESS PROGRAMS DIRECTOR Landy Sawant MD LAB BLOOD ORDERABLES F inal Result [facility] [place] [address] * (ABNORMAL) Basic metabolic panel (05/19/2024 10:37 PM EXECUTIVE WELLNESS PROGRAMS DIRECTOR) Sodium 138 135 - 145 mmol/L Potassium, pl 4.2 3.3 - 4.9 mmol/L [facility] Chloride 102 97 - 110 mmol/L [facility] CO2 24 22 - 32 mmol/L [facility] Anion gap 12 2 - 15 mmol/L [facility] BUN 25 6 - 25 mg/dL [facility] Creatinine 0.92 0.60 - 1.10 mg/dL [facility] Glucose 125 70 - 199 mg/dL [facility] Comment: Interpretive Data Fasting glucose >/= 126 [...] 2022. Calcium 8.4(L) 8.5 - 10.3 mg/dL [facility] Blood 05/19/2024 10:3 7 PM EXECUTIVE WELLNESS PROGRAMS DIRECTOR 05/19/2024 10:53 PM EXECUTIVE WELLNESS PROGRAMS DIRECTOR Landy Sawant MD LAB BLOOD ORDERABLES F inal Result [facility] Department [place] [address] * POCT glucose (05/19/2024 9:07 PM EXECUTIVE WELLNESS PROGRAMS DIRECTOR) Glucose, POC 114 70 - 199 mg/dL Blood 05/19/2024 9:07 PM EXECUTIVE WELLNESS PROGRAMS DIRECTOR 05/19/2024 9:07 PM EXECUTIVE WELLNESS PROGRAMS DIRECTOR Landy Sawant MD LAB POCT ORDERABLES - DEVICE Final Result Performing Organization Address City/[facility] Co de Phone Number [facility] [place] [address] * POCT glucose (05/19/2024 5:15 PM EXECUTIVE WELLNESS PROGRAMS DIRECTOR) Glucose, POC 121 70 - 199 mg/dL Blood 05/19/2024 5:15 PM EXECUTIVE WELLNESS PROGRAMS DIRECTOR 05/19/2024 5:15 PM EXECUTIVE WELLNESS PROGRAMS DIRECTOR Landy Sawant MD LAB POCT ORDERABLES - DEVICE Final Result Performing Organization Address [facility] Co de Phone Number [facility] [place] [address] * POCT glucose (05/19/2024 11:11 AM EXECUTIVE WELLNESS PROGRAMS DIRECTOR) Glucose, POC 118 70 - 199 mg/dL Blood 05/19/2024 11:1 1 AM EXECUTIVE WELLNESS PROGRAMS DIRECTOR 05/19/2024 11:11 AM EXECUTIVE WELLNESS PROGRAMS DIRECTOR Landy Sawant MD LAB POCT ORDERABLES - DEVICE Final Result Performing Organization Address [facility] Co de Phone Number [facility] Department [place] [address] * POCT glucose (05/19/2024 7:27 AM EXECUTIVE WELLNESS PROGRAMS DIRECTOR) Glucose, POC 112 70 - 199 mg/dL Blood 05/19/2024 7:27 AM EXECUTIVE WELLNESS PROGRAMS DIRECTOR 05/19/2024 7:27 AM EXECUTIVE WELLNESS PROGRAMS DIRECTOR Landy Sawant MD LAB POCT ORDERABLES - DEVICE Final Result Performing Organization Address City/[facility] Co de Phone Number [facility] Department [place] [address] * (ABNORMAL) eGFR (05/18/2024 9:10 PM EXECUTIVE WELLNESS PROGRAMS DIRECTOR) [facility] eGFR 53(L) >=60 mL/min/1. 73 m2 [...] last reviewed 2021. Blood 05/18/2024 9:10 PM EXECUTIVE WELLNESS PROGRAMS DIRECTOR 05/18/2024 9:26 PM EXECUTIVE WELLNESS PROGRAMS DIRECTOR us Landy Sawant MD LAB BLOOD ORDERABLES F inal Result [facility] Department [place] [address] * (ABNORMAL) CBC without differential (05/18/2024 9:10 PM EXECUTIVE WELLNESS PROGRAMS DIRECTOR) [facility] WBC 9.8 3.8 - 9.9 K/cumm Hgb 9.9(L) 11.9 - 15.5 g/dL [facility] Hct 30.8(L) 35.6 - 45.5 % [facility] Plt 226 150 - 400 K/cumm [facility] MPV 9.7 9.1 - 12.3 fL [facility] RBC 3.12(L) 3.90 - 5.20 M/cumm [facility] MCV 98.7(H) 81.3 - 96.4 fL [facility] MCH 31.7 27.1 - 33.3 pg [facility] MCHC 32.1(L) 32.3 - 35.7 g/dL [facility] RDW CV 14.4 11.1 - 14.9 % [facility] RDW SD 51.3(H) 35.7 - 48.1 fL [facility] NRBC abs 0.02(H) 0.00 - 0.01 K/cumm [facility] Blood 05/18/2024 9:10 PM EXECUTIVE WELLNESS PROGRAMS DIRECTOR 05/18/2024 9:26 PM EXECUTIVE WELLNESS PROGRAMS DIRECTOR Landy Sawant MD LAB BLOOD ORDERABLES F inal Result Performing Organization Address City/[facility] Co de Phone Number [facility] [place] [address] * Phosphorus (05/18/2024 9:10 PM EXECUTIVE WELLNESS PROGRAMS DIRECTOR) [facility] Phosphorus, pl 2.7 2.3 - 4.5 mg/dL Blood 05/18/2024 9:10 PM EXECUTIVE WELLNESS PROGRAMS DIRECTOR 05/18/2024 9:26 PM EXECUTIVE WELLNESS PROGRAMS DIRECTOR Landy Sawant MD LAB BLOOD ORDERABLES F inal Result Performing Organization Address City/[facility]/ZIP Co de Phone Number [facility] Department [place] [address] * Magnesium (05/18/2024 9:10 PM EXECUTIVE WELLNESS PROGRAMS DIRECTOR) Magnesium 2.5 1.4 - 2.5 mg/dL Blood 05/18/2024 9:10 PM EXECUTIVE WELLNESS PROGRAMS DIRECTOR 05/18/2024 9:26 PM EXECUTIVE WELLNESS PROGRAMS DIRECTOR Landy Sawant MD LAB BLOOD ORDERABLES F inal Result Performing Organization Address [facility] Co de Phone Number [facility] Department [place] [address] * (ABNORMAL) Basic metabolic panel (05/18/2024 9:10 PM EXECUTIVE WELLNESS PROGRAMS DIRECTOR) [facility] Sodium 138 135 - 145 mmol/L Potassium, pl 4.4 3.3 - 4.9 mmol/L [facility] Chloride 105 97 - 110 mmol/L [facility] CO2 25 22 - 32 mmol/L [facility] Anion gap 8 2 - 15 mmol/L [facility] BUN 32(H) 6 - 25 mg/dL [facility] Creatinine 1.06 0.60 - 1.10 mg/dL [facility] Glucose 116 70 - 199 mg/dL [facility] Comment: Interpretive Data Fasting glucose >/= 126 [...] 2022. Calcium 8.8 8.5 - 10.3 mg/dL [facility] Blood 05/18/2024 9:10 PM EXECUTIVE WELLNESS PROGRAMS DIRECTOR 05/18/2024 9:26 PM EXECUTIVE WELLNESS PROGRAMS DIRECTOR Landy Sawant MD LAB BLOOD ORDERABLES F inal Result Performing Organization Address [facility] Co de Phone Number [facility] [address] * POCT glucose (05/18/2024 8:55 PM EXECUTIVE WELLNESS PROGRAMS DIRECTOR) Glucose, POC 110 70 - 199 mg/dL Blood 05/18/2024 8:55 PM EXECUTIVE WELLNESS PROGRAMS DIRECTOR 05/18/2024 8:55 PM EXECUTIVE WELLNESS PROGRAMS DIRECTOR Landy Sawant MD LAB POCT ORDERABLES - DEVICE Final Result Performing Organization Address City/[facility] [place] [address] * POCT glucose (05/18/2024 5:27 PM EXECUTIVE WELLNESS PROGRAMS DIRECTOR) Glucose, POC 115 70 - 199 mg/dL Blood 05/18/2024 5:27 PM EXECUTIVE WELLNESS PROGRAMS DIRECTOR 05/18/2024 5:27 PM EXECUTIVE WELLNESS PROGRAMS DIRECTOR Landy Sawant MD LAB POCT ORDERABLES - DEVICE Final Result Performing Organization Address City/[facility] [place] [address] * POCT glucose (05/18/2024 11:33 AM EXECUTIVE WELLNESS PROGRAMS DIRECTOR) Glucose, POC 139 70 - 199 mg/dL Blood 05/18/2024 11:3 3 AM EXECUTIVE WELLNESS PROGRAMS DIRECTOR 05/18/2024 11:33 AM EXECUTIVE WELLNESS PROGRAMS DIRECTOR Landy Sawant MD LAB POCT ORDERABLES - DEVICE Final Result Performing Organization Address City/[facility] [place] [address] * POCT glucose (05/18/2024 8:55 AM EXECUTIVE WELLNESS PROGRAMS DIRECTOR) Glucose, POC 146 70 - 199 mg/dL Blood 05/18/2024 8:55 AM EXECUTIVE WELLNESS PROGRAMS DIRECTOR 05/18/2024 8:55 AM EXECUTIVE WELLNESS PROGRAMS DIRECTOR Landy Sawant MD LAB POCT ORDERABLES - DEVICE Final Result Performing Organization Address [facility] Co de Phone Number [facility] [place] [address] * POCT glucose (05/17/2024 9:46 PM EXECUTIVE WELLNESS PROGRAMS DIRECTOR) Glucose, POC 144 70 - 199 mg/dL Blood 05/17/2024 9:46 PM EXECUTIVE WELLNESS PROGRAMS DIRECTOR 05/17/2024 9:46 PM EXECUTIVE WELLNESS PROGRAMS DIRECTOR Landy Sawant MD LAB POCT ORDERABLES - DEVICE Final Result Performing Organization Address [facility] de Phone Number [facility] [place] [address] * (ABNORMAL) eGFR (05/17/2024 9:33 PM EXECUTIVE WELLNESS PROGRAMS DIRECTOR) [facility] eGFR 51(L) >=60 mL/min/1. 73 m2 [...] last reviewed 2021. Blood 05/17/2024 9:33 PM EXECUTIVE WELLNESS PROGRAMS DIRECTOR 05/17/2024 9:54 PM EXECUTIVE WELLNESS PROGRAMS DIRECTOR Landy Sawant MD LAB BLOOD ORDERABLES F inal Result Performing Organization Address [facility]/State/ZIP Co de Phone Number [facility] Department [place] [address] * (ABNORMAL) CBC without differential (05/17/2024 9:33 PM EXECUTIVE WELLNESS PROGRAMS DIRECTOR) WBC 13.0(H) 3.8 - 9.9 K/cumm Hgb 10.8(L) 11.9 - 15.5 g/dL [facility] Hct 32.9(L) 35.6 - 45.5 % [facility] Plt 248 150 - 400 K/cumm [facility] MPV 10.1 9.1 - 12.3 fL [facility] RBC 3.39(L) 3.90 - 5.20 M/cumm [facility] MCV 97.1(H) 81.3 - 96.4 fL [facility] MCH 31.9 27.1 - 33.3 pg [facility] MCHC 32.8 32.3 - 35.7 g/dL [facility] RDW CV 13.9 11.1 - 14.9 % [facility] RDW SD 49.3(H) 35.7 - 48.1 fL [facility] NRBC abs 0.00 0.00 - 0.01 K/cumm [facility] Blood 05/17/2024 9:33 PM EXECUTIVE WELLNESS PROGRAMS DIRECTOR 05/17/2024 9:55 PM EXECUTIVE WELLNESS PROGRAMS DIRECTOR Landy Sawant MD LAB BLOOD ORDERABLES F inal Result Performing Organization Address City/[facility] [facility] Co de Phone Number [facility] [place] [address] * Phosphorus (05/17/2024 9:33 PM EXECUTIVE WELLNESS PROGRAMS DIRECTOR) [facility] Phosphorus, pl 3.3 2.3 - 4.5 mg/dL Blood 05/17/2024 9:33 PM EXECUTIVE WELLNESS PROGRAMS DIRECTOR 05/17/2024 9:54 PM EXECUTIVE WELLNESS PROGRAMS DIRECTOR Landy Sawant MD LAB BLOOD ORDERABLES F inal Result Performing Organization Address [facility] Co de Phone Number [facility] [place] [address] * Magnesium (05/17/2024 9:33 PM EXECUTIVE WELLNESS PROGRAMS DIRECTOR) [facility] Magnesium 2.4 1.4 - 2.5 mg/dL Blood 05/17/2024 9:33 PM EXECUTIVE WELLNESS PROGRAMS DIRECTOR 05/17/2024 9:54 PM EXECUTIVE WELLNESS PROGRAMS DIRECTOR Landy Sawant MD LAB BLOOD ORDERABLES F inal Result Performing Organization Address [facility] de Phone Number [facility] [place] [address] * (ABNORMAL) Basic metabolic panel (05/17/2024 9:33 PM EXECUTIVE WELLNESS PROGRAMS DIRECTOR) [facility] Sodium 136 135 - 145 mmol/L Potassium, pl 4.5 3.3 - 4.9 mmol/L [facility] Chloride 102 97 - 110 mmol/L [facility] CO2 23 22 - 32 mmol/L [facility] Anion gap 11 2 - 15 mmol/L [facility] BUN 40(H) 6 - 25 mg/dL [facility] Creatinine 1.09 0.60 - 1.10 mg/dL [facility] Glucose 124 70 - 199 mg/dL [facility] Comment: Interpretive Data Fasting glucose >/= 126 [...] 2022. Calcium 8.6 8.5 - 10.3 mg/dL [facility] Blood 05/17/2024 9:33 PM EXECUTIVE WELLNESS PROGRAMS DIRECTOR 05/17/2024 9:54 PM EXECUTIVE WELLNESS PROGRAMS DIRECTOR Landy Sawant MD LAB BLOOD ORDERABLES F inal Result Performing Organization Address [facility] de Phone Number [facility] Department [place] [address] * POCT glucose (05/17/2024 9:02 PM EXECUTIVE WELLNESS PROGRAMS DIRECTOR) Glucose, POC 177 70 - 199 mg/dL Blood 05/17/2024 9:02 PM EXECUTIVE WELLNESS PROGRAMS DIRECTOR 05/17/2024 9:02 PM EXECUTIVE WELLNESS PROGRAMS DIRECTOR Landy Sawant MD LAB POCT ORDERABLES - DEVICE Final Result Performing Organization Address [facility] de Phone Number [facility] Department [place] [address] * POCT glucose (05/17/2024 5:22 PM EXECUTIVE WELLNESS PROGRAMS DIRECTOR) Glucose, POC 143 70 - 199 mg/dL Blood 05/17/2024 5:22 PM EXECUTIVE WELLNESS PROGRAMS DIRECTOR 05/17/2024 5:22 PM EXECUTIVE WELLNESS PROGRAMS DIRECTOR Landy Sawant MD LAB POCT ORDERABLES - DEVICE Final Result Performing Organization Address [facility] de Phone Number [facility] [place] [address] * POCT glucose (05/17/2024 11:53 AM EXECUTIVE WELLNESS PROGRAMS DIRECTOR) [facility] Glucose, POC 160 70 - 199 mg/dL Blood 05/17/2024 11:5 3 AM EXECUTIVE WELLNESS PROGRAMS DIRECTOR 05/17/2024 11:53 AM EXECUTIVE WELLNESS PROGRAMS DIRECTOR Landy Sawant MD LAB POCT ORDERABLES - DEVICE Final Result Performing Organization Address City/[facility] Co de Phone Number [facility] [place] [address] * POCT glucose (05/17/2024 8:45 AM EXECUTIVE WELLNESS PROGRAMS DIRECTOR) [facility] Glucose, POC 135 70 - 199 mg/dL Blood 05/17/2024 8:45 AM EXECUTIVE WELLNESS PROGRAMS DIRECTOR 05/17/2024 8:45 AM EXECUTIVE WELLNESS PROGRAMS DIRECTOR Landy Sawant MD LAB POCT ORDERABLES - DEVICE Final Result Performing Organization Address [facility] Co de Phone Number [facility] [place] [address] * Potassium, whole blood (05/16/2024 11:23 PM EXECUTIVE WELLNESS PROGRAMS DIRECTOR) [facility] Potassium, bld 4.7 3.3 - 4.9 mmol/L Blood 05/16/2024 11:2 3 PM EXECUTIVE WELLNESS PROGRAMS DIRECTOR 05/16/2024 11:29 PM EXECUTIVE WELLNESS PROGRAMS DIRECTOR Landy Sawant MD LAB BLOOD ORDERABLES F inal Result Performing Organization Address City/[facility]/ZIP Co de Phone Number [facility] [place] [address] * (ABNORMAL) eGFR (05/16/2024 8:26 PM EXECUTIVE WELLNESS PROGRAMS DIRECTOR) [facility] eGFR 37(L) >=60 mL/min/1. 73 m2 [...] last reviewed 2021. Blood 05/16/2024 8:26 PM EXECUTIVE WELLNESS PROGRAMS DIRECTOR 05/16/2024 8:43 PM EXECUTIVE WELLNESS PROGRAMS DIRECTOR Landy Sawant MD LAB BLOOD ORDERABLES F inal Result [facility] Department [place] [address] * POCT glucose (05/16/2024 8:26 PM EXECUTIVE WELLNESS PROGRAMS DIRECTOR) [facility] Glucose, POC 148 70 - 199 mg/dL Blood 05/16/2024 8:26 PM EXECUTIVE WELLNESS PROGRAMS DIRECTOR 05/16/2024 8:26 PM EXECUTIVE WELLNESS PROGRAMS DIRECTOR Landy Sawant MD LAB POCT ORDERABLES - DEVICE Final Result Performing Organization Address [facility] Co de Phone Number [facility] [place] [address] * (ABNORMAL) CBC without differential (05/16/2024 8:26 PM EXECUTIVE WELLNESS PROGRAMS DIRECTOR) [facility] WBC 14.3(H) 3.8 - 9.9 K/cumm Hgb 10.2(L) 11.9 - 15.5 g/dL [facility] Hct 30.8(L) 35.6 - 45.5 % [facility] Plt 268 150 - 400 K/cumm [facility] MPV 10.4 9.1 - 12.3 fL [facility] RBC 3.22(L) 3.90 - 5.20 M/cumm [facility] MCV 95.7 81.3 - 96.4 fL [facility] MCH 31.7 27.1 - 33.3 pg [facility] MCHC 33.1 32.3 - 35.7 g/dL [facility] RDW CV 14.1 11.1 - 14.9 % [facility] RDW SD 49.5(H) 35.7 - 48.1 fL [facility] NRBC abs 0.00 0.00 - 0.01 K/cumm [facility] Blood 05/16/2024 8:26 PM EXECUTIVE WELLNESS PROGRAMS DIRECTOR 05/16/2024 8:43 PM EXECUTIVE WELLNESS PROGRAMS DIRECTOR Landy Sawant MD LAB BLOOD ORDERABLES F inal Result Performing Organization Address [facility]/ZIP Co de Phone Number [facility] [place] [address] * Phosphorus (05/16/2024 8:26 PM EXECUTIVE WELLNESS PROGRAMS DIRECTOR) [facility] Phosphorus, pl 3.9 2.3 - 4.5 mg/dL Blood 05/16/2024 8:26 PM EXECUTIVE WELLNESS PROGRAMS DIRECTOR 05/16/2024 8:43 PM EXECUTIVE WELLNESS PROGRAMS DIRECTOR us Landy Sawant MD LAB BLOOD ORDERABLES F inal Result Performing Organization Address City/[facility]/ZIP Co de Phone Number [facility] [place] [address] * Magnesium (05/16/2024 8:26 PM EXECUTIVE WELLNESS PROGRAMS DIRECTOR) [facility] Magnesium 2.5 1.4 - 2.5 mg/dL Blood 05/16/2024 8:26 PM EXECUTIVE WELLNESS PROGRAMS DIRECTOR 05/16/2024 8:43 PM EXECUTIVE WELLNESS PROGRAMS DIRECTOR Landy Sawant MD LAB BLOOD ORDERABLES F inal Result Performing Organization Address [facility] Co de Phone Number [facility] [place] [address] * (ABNORMAL) Basic metabolic panel (05/16/2024 8:26 PM EXECUTIVE WELLNESS PROGRAMS DIRECTOR) [facility] Sodium 130(L) 135 - 145 mmol/L Potassium, pl 5.1(H) 3.3 - 4.9 mmol/L [facility] Comment:Hemolyzed; Potassium value may be falsely elevated by as much as 0.3-0.5 mmol/L. Suggest redraw and reanalysis. Chloride 98 97 - 110 mmol/L [facility] CO2 21(L) 22 - 32 mmol/L [facility] Anion gap 11 2 - 15 mmol/L [facility] BUN 49(H) 6 - 25 mg/dL [facility] Creatinine 1.43(H) 0.60 - 1.10 mg/dL [facility] Glucose 139 70 - 199 mg/dL [facility] Comment: Interpretive Data Fasting glucose >/= 126 [...] 2022. Calcium 8.3(L) 8.5 - 10.3 mg/dL [facility] Blood 05/16/2024 8:26 PM EXECUTIVE WELLNESS PROGRAMS DIRECTOR 05/16/2024 8:43 PM EXECUTIVE WELLNESS PROGRAMS DIRECTOR Landy Sawant MD LAB BLOOD ORDERABLES F inal Result Performing Organization Address City/[facility] Co de Phone Number [facility] [place] [address] * POCT glucose (05/16/2024 6:10 PM EXECUTIVE WELLNESS PROGRAMS DIRECTOR) Glucose, POC 161 70 - 199 mg/dL Blood 05/16/2024 6:10 PM EXECUTIVE WELLNESS PROGRAMS DIRECTOR 05/16/2024 6:10 PM EXECUTIVE WELLNESS PROGRAMS DIRECTOR Landy Sawant MD LAB POCT ORDERABLES - DEVICE Final Result Performing Organization Address [facility] de Phone Number [facility] [place] [address] * POCT glucose (05/16/2024 1:34 PM EXECUTIVE WELLNESS PROGRAMS DIRECTOR) Glucose, POC 163 70 - 199 mg/dL Blood 05/16/2024 1:34 PM EXECUTIVE WELLNESS PROGRAMS DIRECTOR 05/16/2024 1:34 PM EXECUTIVE WELLNESS PROGRAMS DIRECTOR Landy Sawant MD LAB POCT ORDERABLES - DEVICE Final Result Performing Organization Address [facility] de Phone Number [facility] [place] [address] * US Carotids Duplex Bilateral (05/16/2024 1:16 PM EXECUTIVE WELLNESS PROGRAMS DIRECTOR) Anatomical Region Laterality Modality Vascular Bilateral Ultrasound 05/16/2024 11:5 7 AM EXECUTIVE WELLNESS PROGRAMS DIRECTOR Narrative 05/18/2024 12:28 AM EXECUTIVE WELLNESS PROGRAMS DIRECTOR [employer] - Department of Vascular Surgery, Vascular Laboratory [address] [place] [id number] Carotid Duplex Ultrasound Report Patient Name: PATRICIA VALDEZ : 1940 (83y 10m) Study Date: 05/16/2024 11:57:01 AM Gender: F Tech: ID Location: [id number] Ref Provider: LANDY SAWANT Quality: Adequate Order [...] PSV ?60 cm/sec - ?? FINDINGS: Performing Logistics Coordinator: Batsheva Kohli RVT. Rt Common Carotid Artery: [...] above. Electronically Signed By: Nii Wilson MD [facility] 05/18/2024 12:27:58 AM EXECUTIVE WELLNESS PROGRAMS DIRECTOR Procedure Note Nii Wilson MD - 05/18/2024 [facility] - Department of Vascular Surgery,Vascular Laboratory [address] [place] [id number] Carotid Duplex Ultrasound Report Patient Name: PATRICIA VALDEZ : 1940 (83y 10m) Study Date: 05/16/2024 11:57:01 AM Gender: F Tech: IA Location: [id number] Ref Provider: LANDY SAWANT Quality: Adequate Order [...] RT VERT PSV 60cm/sec - FINDINGS: Performing Logistics Coordinator: Batsheva Kohli RVT. Rt Common Carotid Artery: [...] Nii Wilson MD FACS 05/18/2024 12:27:58 AM EXECUTIVE WELLNESS PROGRAMS DIRECTOR Landy Sawant MD IM US PROCEDURES Chanelle l Result * POCT glucose (05/16/2024 8:21 AM EXECUTIVE WELLNESS PROGRAMS DIRECTOR) Glucose, POC 138 70 - 199 mg/dL Blood 05/16/2024 8:21 AM EXECUTIVE WELLNESS PROGRAMS DIRECTOR 05/16/2024 8:21 AM EXECUTIVE WELLNESS PROGRAMS DIRECTOR us Landy Sawant MD LAB POCT ORDERABLES - DEVICE Final Result Performing Organization Address [facility] Co de Phone Number [facility] [place] [address] * (ABNORMAL) eGFR (05/15/2024 9:06 PM EXECUTIVE WELLNESS PROGRAMS DIRECTOR) eGFR 35(L) >=60 mL/min/1. 73 m2 Comment: [...] last reviewed 2021. Blood 05/15/2024 9:06 PM EXECUTIVE WELLNESS PROGRAMS DIRECTOR 05/15/2024 9:34 PM EXECUTIVE WELLNESS PROGRAMS DIRECTOR us Landy Sawant MD LAB BLOOD ORDERABLES F inal Result Performing Organization Address City/[facility] Co de Phone Number [facility] [place] [address] * (ABNORMAL) CBC without differential (05/15/2024 9:06 PM EXECUTIVE WELLNESS PROGRAMS DIRECTOR) [facility] WBC 14.8(H) 3.8 - 9.9 K/cumm Hgb 10.8(L) 11.9 - 15.5 g/dL [facility] Hct 33.0(L) 35.6 - 45.5 % [facility] Plt 224 150 - 400 K/cumm [facility] MPV 9.9 9.1 - 12.3 fL [facility] RBC 3.44(L) 3.90 - 5.20 M/cumm [facility] MCV 95.9 81.3 - 96.4 fL [facility] MCH 31.4 27.1 - 33.3 pg [facility] MCHC 32.7 32.3 - 35.7 g/dL [facility] RDW CV 14.1 11.1 - 14.9 % [facility] RDW SD 50.0(H) 35.7 - 48.1 fL [facility] NRBC abs 0.00 0.00 - 0.01 K/cumm [facility] Blood 05/15/2024 9:06 PM EXECUTIVE WELLNESS PROGRAMS DIRECTOR 05/15/2024 9:29 PM EXECUTIVE WELLNESS PROGRAMS DIRECTOR Landy Sawant MD LAB BLOOD ORDERABLES F inal Result Performing Organization Address [facility] Co de Phone Number [facility] Department [place] [address] * Phosphorus (05/15/2024 9:06 PM EXECUTIVE WELLNESS PROGRAMS DIRECTOR) [facility] Phosphorus, pl 3.7 2.3 - 4.5 mg/dL Blood 05/15/2024 9:06 PM EXECUTIVE WELLNESS PROGRAMS DIRECTOR 05/15/2024 9:34 PM EXECUTIVE WELLNESS PROGRAMS DIRECTOR Landy Sawant MD LAB BLOOD ORDERABLES F inal Result Performing Organization Address City/[facility] Co de Phone Number [facility] Department [place] [address] * Magnesium (05/15/2024 9:06 PM EXECUTIVE WELLNESS PROGRAMS DIRECTOR) Pathologist [facility] Magnesium 2.3 1.4 - 2.5 mg/dL Blood 05/15/2024 9:06 PM EXECUTIVE WELLNESS PROGRAMS DIRECTOR 05/15/2024 9:34 PM EXECUTIVE WELLNESS PROGRAMS DIRECTOR Landy Sawant MD LAB BLOOD ORDERABLES F inal Result [facility] Department [place] [address] * (ABNORMAL) Basic metabolic panel (05/15/2024 9:06 PM EXECUTIVE WELLNESS PROGRAMS DIRECTOR) Pathologist [facility] Sodium 137 135 - 145 mmol/L Potassium, pl 5.1(H) 3.3 - 4.9 mmol/L [facility] Chloride 103 97 - 110 mmol/L [facility] CO2 22 22 - 32 mmol/L [facility] Anion gap 12 2 - 15 mmol/L [facility] BUN 50(H) 6 - 25 mg/dL [facility] Creatinine 1.50(H) 0.60 - 1.10 mg/dL [facility] Glucose 164 70 - 199 mg/dL [facility] Comment: Interpretive Data Fasting glucose >/= 126 [...] 2022. Calcium 8.7 8.5 - 10.3 mg/dL [facility] Blood 05/15/2024 9:06 PM EXECUTIVE WELLNESS PROGRAMS DIRECTOR 05/15/2024 9:34 PM EXECUTIVE WELLNESS PROGRAMS DIRECTOR Landy Sawant MD LAB BLOOD ORDERABLES F inal Result [facility] [place] [address] * POCT glucose (05/15/2024 8:48 PM EXECUTIVE WELLNESS PROGRAMS DIRECTOR) Glucose, POC 162 70 - 199 mg/dL Blood 05/15/2024 8:48 PM EXECUTIVE WELLNESS PROGRAMS DIRECTOR 05/15/2024 8:48 PM EXECUTIVE WELLNESS PROGRAMS DIRECTOR Landy Sawant MD LAB POCT ORDERABLES - DEVICE Final Result Performing Organization Address [facility] Co de Phone Number [facility] [place] [address] * POCT glucose (05/15/2024 5:34 PM EXECUTIVE WELLNESS PROGRAMS DIRECTOR) Glucose, POC 138 70 - 199 mg/dL Blood 05/15/2024 5:34 PM EXECUTIVE WELLNESS PROGRAMS DIRECTOR 05/15/2024 5:34 PM EXECUTIVE WELLNESS PROGRAMS DIRECTOR Landy Sawant MD LAB POCT ORDERABLES - DEVICE Final Result Performing Organization Address City/[facility]/ZIP Co de Phone Number [facility] [place] [address] * POCT glucose (05/15/2024 12:51 PM EXECUTIVE WELLNESS PROGRAMS DIRECTOR) Glucose, POC 138 70 - 199 mg/dL Blood 05/15/2024 12:5 1 PM EXECUTIVE WELLNESS PROGRAMS DIRECTOR 05/15/2024 12:51 PM EXECUTIVE WELLNESS PROGRAMS DIRECTOR Landy Sawant MD LAB POCT ORDERABLES - DEVICE Final Result [facility] [place] [address] * (ABNORMAL) POCT glucose (05/15/2024 7:55 AM EXECUTIVE WELLNESS PROGRAMS DIRECTOR) [facility] Glucose, POC 276(H) 70 - 199 mg/dL Blood 05/15/2024 7:55 AM EXECUTIVE WELLNESS PROGRAMS DIRECTOR 05/15/2024 7:55 AM EXECUTIVE WELLNESS PROGRAMS DIRECTOR Landy Sawant MD LAB POCT ORDERABLES - DEVICE Final Result Performing Organization Address City/[facility] Co de Phone Number [facility] [place] [address] * (ABNORMAL) Potassium, whole blood (05/14/2024 11:06 PM EXECUTIVE WELLNESS PROGRAMS DIRECTOR) [facility] Potassium, bld 5.0(H) 3.3 - 4.9 mmol/L Blood 05/14/2024 11:0 6 PM EXECUTIVE WELLNESS PROGRAMS DIRECTOR 05/14/2024 11:18 PM EXECUTIVE WELLNESS PROGRAMS DIRECTOR Landy Sawant MD LAB BLOOD ORDERABLES F inal Result Performing Organization Address [facility] Co de Phone Number S[facility] Department [place] [address] * (ABNORMAL) eGFR (05/14/2024 9:02 PM EXECUTIVE WELLNESS PROGRAMS DIRECTOR) [facility] eGFR 31(L) >=60 mL/min/1. 73 m2 [...] last reviewed 2021. Blood 05/14/2024 9:02 PM EXECUTIVE WELLNESS PROGRAMS DIRECTOR 05/14/2024 9:24 PM EXECUTIVE WELLNESS PROGRAMS DIRECTOR Landy Sawant MD LAB BLOOD ORDERABLES F inal Result [facility] One [facility] Department [place] [address] * (ABNORMAL) CBC without differential (05/14/2024 9:02 PM EXECUTIVE WELLNESS PROGRAMS DIRECTOR) WBC 12.7(H) 3.8 - 9.9 K/cumm Hgb 11.8(L) 11.9 - 15.5 g/dL [facility] Hct 36.5 35.6 - 45.5 % [facility] Plt 221 150 - 400 K/cumm [facility] MPV 10.1 9.1 - 12.3 fL [facility] RBC 3.73(L) 3.90 - 5.20 M/cumm [facility] MCV 97.9(H) 81.3 - 96.4 fL [facility] MCH 31.6 27.1 - 33.3 pg [facility] MCHC 32.3 32.3 - 35.7 g/dL [facility] RDW CV 14.4 11.1 - 14.9 % [facility] RDW SD 52.1(H) 35.7 - 48.1 fL [facility] NRBC abs 0.00 0.00 - 0.01 K/cumm [facility] Blood 05/14/2024 9:02 PM EXECUTIVE WELLNESS PROGRAMS DIRECTOR 05/14/2024 9:24 PM EXECUTIVE WELLNESS PROGRAMS DIRECTOR Landy Sawant MD LAB BLOOD ORDERABLES F inal Result Performing Organization Address [facility] Co de Phone Number [facility] [place] [address] * (ABNORMAL) Phosphorus (05/14/2024 9:02 PM EXECUTIVE WELLNESS PROGRAMS DIRECTOR) Pathologist [facility] Phosphorus, pl 5.1(H) 2.3 - 4.5 mg/dL Blood 05/14/2024 9:02 PM EXECUTIVE WELLNESS PROGRAMS DIRECTOR 05/14/2024 9:24 PM EXECUTIVE WELLNESS PROGRAMS DIRECTOR Result [facility] Landy Sawant MD LAB BLOOD ORDERABLES F inal Result Performing Organization Address [facility] de Phone Number [facility] [place] [address] * Magnesium (05/14/2024 9:02 PM EXECUTIVE WELLNESS PROGRAMS DIRECTOR) [facility] Magnesium 2.2 1.4 - 2.5 mg/dL Blood 05/14/2024 9:0 2 PM EXECUTIVE WELLNESS PROGRAMS DIRECTOR 05/14/2024 9:24 PM EXECUTIVE WELLNESS PROGRAMS DIRECTOR Result [facility] Landy Sawant MD LAB BLOOD ORDERABLES F inal Result Performing Organization Address [facility] de Phone Number [facility] [place] [address] * (ABNORMAL) Basic metabolic panel (05/14/2024 9:02 PM EXECUTIVE WELLNESS PROGRAMS DIRECTOR) [facility] Sodium 135 135 - 145 mmol/L Potassium, pl 5.1(H) 3.3 - 4.9 mmol/L [facility] Chloride 103 97 - 110 mmol/L [facility] CO2 20(L) 22 - 32 mmol/L [facility] Anion gap 12 2 - 15 mmol/L [facility] BUN 44(H) 6 - 25 mg/dL [facility] Creatinine 1.63(H) 0.60 - 1.10 mg/dL [facility] Glucose 183 70 - 199 mg/dL [facility] Comment: Interpretive Data Fasting glucose >/= 126 [...] 2022. Calcium 8.5 8.5 - 10.3 mg/dL [facility] Blood 05/14/2024 9:02 PM EXECUTIVE WELLNESS PROGRAMS DIRECTOR 05/14/2024 9:24 PM EXECUTIVE WELLNESS PROGRAMS DIRECTOR us Landy Sawant MD LAB BLOOD ORDERABLES F inal Result [facility] Department [place] [address] * POCT glucose (05/14/2024 6:10 PM EXECUTIVE WELLNESS PROGRAMS DIRECTOR) [facility] Signature Glucose, POC 148 70 - 199 mg/dL Blood 05/14/2024 6:10 PM EXECUTIVE WELLNESS PROGRAMS DIRECTOR 05/14/2024 6:10 PM EXECUTIVE WELLNESS PROGRAMS DIRECTOR Landy Sawant MD LAB POCT ORDERABLES - DEVICE Final Result Performing Organization Address [facility]/ZIP Co de Phone Number [facility] [place] [address] * XR Pelvis 3 or More Views (05/14/2024 10:46 AM EXECUTIVE WELLNESS PROGRAMS DIRECTOR) Anatomical Region Laterality Modality Pelvis, Body N/A Computed Radiogr aphy 05/14/2024 11:1 9 AM EXECUTIVE WELLNESS PROGRAMS DIRECTOR Impressions 05/14/2024 11:19 AM EXECUTIVE WELLNESS PROGRAMS DIRECTOR There are fractures of the right superior and inferior pubic ramus as well as the right sacral ala. ??Contrast is noted within the urinary bladder. No definite extraluminal contrast. ??If there is concern for bladder injury, consider CT cystogram. Electronically signed by: Kendal Braun M.D. Narrative 05/14/2024 11:19 AM EXECUTIVE WELLNESS PROGRAMS DIRECTOR EXAMINATION: XR PELVIS 3 OR MORE VIEWS [...] Respiratory pathogen panel Nasopharyngeal (05/14/2024 10:15 AM EXECUTIVE WELLNESS PROGRAMS DIRECTOR) Pathologist [facility] Influenza A RNA Not Detected Not Detected Influenza B RNA Not Detected Not Detected [facility] RSV RNA Not Detected Not Detected [facility] COVID-19 RNA Not Detected Not Detected [facility] Coronavirus 229E RNA Not Detected Not Detected [facility] Coronavirus HKU1 RNA Not Detected Not Detected [facility] Coronavirus NL63 RNA Not Detected Not Detected [facility] Coronavirus OC43 RNA Not Detected Not Detected [facility] Adenovirus DNA Not Detected Not Detected [facility] Metapneumovirus RNA Not Detected Not Detected [facility] Rhinovirus/Enterov irus RNA Detected(A) Not Detected [facility] Parainfluenza 1 RNA Not Detected Not Detected [facility] Parainfluenza 2 RNA Not Detected Not Detected [facility] Parainfluenza 3 RNA Not Detected Not Detected [facility] Parainfluenza 4 RNA Not Detected Not Detected [facility] B. pertussis DNA Not Detected Not Detected [facility] B. parapertussis DNA Not Detected Not Detected [facility] C. pneumoniae DNA Not Detected Not Detected [facility] M. pneumoniae DNA Not Detected Not Detected [facility] Nasopharyngeal 05/14/2024 10 :15 AM EXECUTIVE WELLNESS PROGRAMS DIRECTOR 05/14/2024 10:43 AM EXECUTIVE WELLNESS PROGRAMS DIRECTOR Narrative [facility] - 05/14/2024 11:35 AM EXECUTIVE WELLNESS PROGRAMS DIRECTOR Is the Patient experiencing symptoms consistent with COVID?->Yes Surveillance testing for transplant patient?->No ??Interpretive Data The [employer] FilmArray Respiratory Panel (RP2.1) assay is a [...] assay has FDA clearance for testing of EMERGENCY PREPAREDNESS MANAGER swabs. ??The performance of additional specimen types has been assessed by the performing laboratory. ??The performance characteristics of this assay have been determined by [facility] Molecular Infectious Disease Laboratory. Current interpretive data was last revised on 22. us Frandy Ferreira MD LAB MICROBIOLOGY - GENERAL ORDERABLES Final Result Performing Organization Address [facility] Co de Phone Number [facility] Department [place] [address] * CT Body Outside Reference (05/14/2024 10:12 AM EXECUTIVE WELLNESS PROGRAMS DIRECTOR) Impressions [facility] - 05/14/2024 10:12 AM EXECUTIVE WELLNESS PROGRAMS DIRECTOR These images are for Reference purposes only and have not been reviewed by [facility] Radiology. ??There will be no report generated by a [facility] Radiologist. Narrative RAD_PACS_[facility] - 05/14/2024 10:12 AM EXECUTIVE WELLNESS PROGRAMS DIRECTOR EXAMINATION: ??Images For Reference Purposes Only us Frandy Ferreira MD IMG CT PROCEDURES Final Re sult Performing Organization Address [facility] Co de Phone Number [facility] * (ABNORMAL) Urinalysis reflex to microscopic and culture Urine (05/14/2024 10:12 AM EXECUTIVE WELLNESS PROGRAMS DIRECTOR) Color, ur Straw Yellow Clarity, ur Cloudy(A) Clear [facility] Specific gravity, ur 1.014 1.003 - 1.030 [facility] pH, urine 6.0 [facility] Comment: Interpretive Data ? Urine pH is affected by diet, medications, systemic acid-base disturbances, and renal tubular function. ??pH may affect urinary stone formation. ??For example, urine pH below 6.0 may help reduce the tendency for calcium phosphate stones and pH greater than 6.0 may reduce the tendency for uric acid stone formation. Source: [facility] Current Interpretive Data was last revised on 2017 Protein, ur ql Negative Negative [facility] Glucose, ur ql Negative Negative [facility] Ketones, ur Negative Negative [facility] Bilirubin, ur Negative Negative [facility] Blood, ur Negative Negative [facility] Urobilinogen, ur <2.0 <2.0 mg/dL [facility] Nitrite, ur Negative Negative [facility] Leukocyte esterase, ur 3+(A) Negative [facility] UA reflex comment Reflex to microscopic UA will be performed. [facility] Urine 05/14/2024 10:1 2 AM EXECUTIVE WELLNESS PROGRAMS DIRECTOR 05/14/2024 10:17 AM EXECUTIVE WELLNESS PROGRAMS DIRECTOR Alexis Sawyer MD LAB MICROBIOLOGY - GEN ERAL ORDERABLES Final Result Performing Organization Address [facility] de Phone Number [facility] Department [place] [address] * (ABNORMAL) Urinalysis, microscopic only (05/14/2024 10:12 AM EXECUTIVE WELLNESS PROGRAMS DIRECTOR) WBC, ur >50(A) 0 - 5 /HPF RBC, ur 11-20(A) 0 - 2 /HPF [facility] Epithelial cells, squamous, ur 1-5 0 - 5 /HPF [facility] Bacteria, ur 1+(A) [facility] Culture Reflex Comment Reflex to urine culture will be performed. [facility] Urine 05/14/2024 10:1 2 AM EXECUTIVE WELLNESS PROGRAMS DIRECTOR 05/14/2024 10:17 AM EXECUTIVE WELLNESS PROGRAMS DIRECTOR Alexis Sawyer MD LAB URINE ORDERABLES F inal Result Performing Organization Address [facility] Co de Phone Number [facility] [place] [address] * (ABNORMAL) Urine culture Urine (05/14/2024 10:12 AM EXECUTIVE WELLNESS PROGRAMS DIRECTOR) Report Final Report: Greater than or equal to 100,000 colonies/mL of Klebsiella pneumoniae (.) Organism KLEBSIELLA PNEUMONIAE [facility] Urine 05/14/2024 10:1 2 AM EXECUTIVE WELLNESS PROGRAMS DIRECTOR 05/14/2024 5:03 PM EXECUTIVE WELLNESS PROGRAMS DIRECTOR Narrative [facility] - 05/16/2024 12:42 PM EXECUTIVE WELLNESS PROGRAMS DIRECTOR Urine culture reflexed based upon urinalysis results. Testing performed by [facility] Microbiology Laboratory ([phone]) Organism Antibiotic Method Susceptibility Klebsiella pneumoniae Ampicillin [...] MICROBIOLOGY - GEN ERAL ORDERABLES Final Result [facility] One [facility] Department [place] [address] * XR Chest 1 Vw Portable (05/14/2024 7:22 AM EXECUTIVE WELLNESS PROGRAMS DIRECTOR) Anatomical Region Laterality Modality Body, Chest N/A Computed Radiogr aphy 05/14/2024 9:44 AM EXECUTIVE WELLNESS PROGRAMS DIRECTOR Impressions 05/14/2024 10:36 AM EXECUTIVE WELLNESS PROGRAMS DIRECTOR No prior examinations available for comparison. Correlation [...] Kendal Braun M.D. Narrative 05/14/2024 10:36 AM EXECUTIVE WELLNESS PROGRAMS DIRECTOR EXAMINATION: 1 view chest radiograph Procedure Note [...] Result * Check Sample (05/14/2024 6:48 AM EXECUTIVE WELLNESS PROGRAMS DIRECTOR) ABO Rh O Positive [facility] HCLL OTHER 05/14/2024 6:48 AM EXECUTIVE WELLNESS PROGRAMS DIRECTOR 05/14/2024 6:55 AM EXECUTIVE WELLNESS PROGRAMS DIRECTOR Kenneth Vallecillo MD LAB BLOOD ORDERABLES Final Re sult [facility] One [facility] Department [place] [address] [facility] * Neuro CT Outside Consult (05/14/2024 6:09 AM EXECUTIVE WELLNESS PROGRAMS DIRECTOR) Anatomical Region Laterality Modality N/A Computed Tomogra phy 05/14/2024 6:35 AM EXECUTIVE WELLNESS PROGRAMS DIRECTOR Impressions 05/14/2024 9:34 AM EXECUTIVE WELLNESS PROGRAMS DIRECTOR No acute cervical spine fracture. The findings, conclusions and recommendations within this report do not replace the initial findings, conclusions ??and recommendations made at the facility where the study was performed based upon the imaging and clinical condition at that time. ??Comparison with the prior report and clinical history is necessary. ??The provided images may or may not represent the point lay ira source data set and thus may contain changes that may lower the accuracy of this second-opinion interpretation. Dictated by: Virgilio eDmpsey MD The radiology attending physician has personally reviewed this study, and had reviewed and/or edited this written report and agrees with it. Electronically signed by: Evelyne Saleh M.D. Narrative 05/14/2024 9:34 AM EXECUTIVE WELLNESS PROGRAMS DIRECTOR EXAMINATION: RADIOLOGY CONSULTATION ON OUTSIDE IMAGING STUDY [...] images may or may not represent the point lay ira source data set and thus may contain [...] Neuro CT Outside Reference (05/14/2024 6:04 AM EXECUTIVE WELLNESS PROGRAMS DIRECTOR) Impressions [facility] - 05/14/2024 6:04 AM EXECUTIVE WELLNESS PROGRAMS DIRECTOR These images are for Reference purposes only and have not been reviewed by [facility] Radiology. ??There will be no report generated by a [facility] Radiologist. Narrative [facility] - 05/14/2024 6:04 AM EXECUTIVE WELLNESS PROGRAMS DIRECTOR EXAMINATION: ??Images For Reference Purposes Only Alexis Sawyer MD [facility] CT PROCEDURES Chanelle l Result [facility] * CT Body Outside Consult (05/14/2024 5:59 AM EXECUTIVE WELLNESS PROGRAMS DIRECTOR) Anatomical Region Laterality Modality Body N/A Computed Tomogra phy 05/14/2024 6:16 AM EXECUTIVE WELLNESS PROGRAMS DIRECTOR Impressions 05/14/2024 10:03 AM EXECUTIVE WELLNESS PROGRAMS DIRECTOR This study was initially nominated as a consult on outside images via Outside Image Sharing Service. However, a consult was not performed because no images were included in the packet. ??If interpretation is desired, uploaded images appropriately and resubmitted for consultation. Accordingly, there will be no separate report of this study generated by a [facility] Radiologist. Dictated by: Kavitha Ba MD The radiology attending physician has personally reviewed this study, and had reviewed and/or edited this written report and agrees with it. Electronically signed by: Kendal Braun M.D. Narrative 05/14/2024 10:03 AM EXECUTIVE WELLNESS PROGRAMS DIRECTOR EXAMINATION: ??CHANGE CONSULT ON OUTSIDE IMAGES TO [...] report of this study generated by a [facility] Radiologist. Dictated by: Kavitha Ba MD The radiology attending physician has personally reviewed this study, and had reviewed and/or edited this written report and agrees with it. Electronically signed by: Kednal Braun M.D. Alexis Sawyer MD IMG CT PROCEDURES Chanelle l Result * XR Outside Reference (05/14/2024 5:56 AM EXECUTIVE WELLNESS PROGRAMS DIRECTOR) Impressions [facility] - 05/14/2024 5:56 AM EXECUTIVE WELLNESS PROGRAMS DIRECTOR These images are for Reference purposes only and have not been reviewed by [facility] Radiology. ??There will be no report generated by a [facility] Radiologist. Narrative [facility] - 05/14/2024 5:56 AM EXECUTIVE WELLNESS PROGRAMS DIRECTOR EXAMINATION: ??Images For Reference Purposes Only Alexis Sawyer MD IMG XR PROCEDURES Chanelle l Result [facility] * XR Outside Reference (05/14/2024 5:48 AM EXECUTIVE WELLNESS PROGRAMS DIRECTOR) Impressions [facility] - 05/14/2024 5:48 AM EXECUTIVE WELLNESS PROGRAMS DIRECTOR These images are for Reference purposes only and have not been reviewed by [facility] Radiology. ??There will be no report generated by a [facility] Radiologist. Narrative [facility] - 05/14/2024 5:48 AM EXECUTIVE WELLNESS PROGRAMS DIRECTOR EXAMINATION: ??Images For Reference Purposes Only Alexis Sawyer MD IMG XR PROCEDURES Chanelle l Result Performing Organization Address [facility] de Phone Number [facility] * CT Body Outside Reference (05/14/2024 5:46 AM EXECUTIVE WELLNESS PROGRAMS DIRECTOR) Impressions [facility] - 05/14/2024 5:46 AM EXECUTIVE WELLNESS PROGRAMS DIRECTOR These images are for Reference purposes only and have not been reviewed by [facility] Radiology. ??There will be no report generated by a [facility] Radiologist. Narrative [facility] - 05/14/2024 5:46 AM EXECUTIVE WELLNESS PROGRAMS DIRECTOR EXAMINATION: ??Images For Reference Purposes Only Alexis Sawyer MD IMG CT PROCEDURES Chanelle l Result Performing Organization Address [facility] de Phone Number [facility] * Neuro CT Outside Reference (05/14/2024 5:44 AM EXECUTIVE WELLNESS PROGRAMS DIRECTOR) Impressions [facility] - 05/14/2024 5:44 AM EXECUTIVE WELLNESS PROGRAMS DIRECTOR These images are for Reference purposes only and have not been reviewed by [facility] Radiology. ??There will be no report generated by a [facility] Radiologist. Narrative [facility] - 05/14/2024 5:44 AM EXECUTIVE WELLNESS PROGRAMS DIRECTOR EXAMINATION: ??Images For Reference Purposes Only Alexis Sawyer MD IMG CT PROCEDURES Chanelle l Result Performing Organization Address [facility] Co de Phone Number [facility] * (ABNORMAL) eGFR (05/14/2024 5:35 AM EXECUTIVE WELLNESS PROGRAMS DIRECTOR) Pathologist [facility] eGFR 42(L) >=60 mL/min/1. 73 m2 Comment: [...] last reviewed 2021. Blood 05/14/2024 5:35 AM EXECUTIVE WELLNESS PROGRAMS DIRECTOR 05/14/2024 5:51 AM EXECUTIVE WELLNESS PROGRAMS DIRECTOR us Alexis Sawyer MD LAB BLOOD ORDERABLES F inal Result [facility] One [facility] Department of Laboratories [place], [place] [id number] * (ABNORMAL) Differential, auto (05/14/2024 5:35 AM EXECUTIVE WELLNESS PROGRAMS DIRECTOR) Pathologist [facility] Neutrophil abs 15.6(H) 1.5 - 6.5 K/cumm Imm gran abs 0.1 0.0 - 0.1 K/cumm [facility] Lymphocyte abs 1.6 0.8 - 3.3 K/cumm [facility] Monocyte abs 1.4(H) 0.2 - 0.8 K/cumm [facility] Eosinophil abs 0.1 0.0 - 0.5 K/cumm [facility] Basophil abs 0.1 0.0 - 0.1 K/cumm [facility] Neutrophil pct 83.1 % [facility] Comment: Interpretive Data Percent cell count reference ranges are not reported, since discordance with absolute values may lead to misinterpretation of CBC data. Current Interpretive Data was last revised on 2017. Imm gran pct 0.6 % [facility] Comment: Interpretive Data Percent cell count reference ranges are not reported, since discordance with absolute values may lead to misinterpretation of CBC data. Current Interpretive Data was last revised on 2017. Lymphocyte pct 8.3 % [facility] Comment: Interpretive Data Percent cell count reference ranges are not reported, since discordance with absolute values may lead to misinterpretation of CBC data. Current Interpretive Data was last revised on 2017. Monocyte pct 7.2 % [facility] Comment: Interpretive Data Percent cell count reference ranges are not reported, since discordance with absolute values may lead to misinterpretation of CBC data. Current Interpretive Data was last revised on 2017. Eosinophil pct 0.3 % [facility] Comment: Interpretive Data Percent cell count reference ranges are not reported, since discordance with absolute values may lead to misinterpretation of CBC data. Current Interpretive Data was last revised on 2017. Basophil pct 0.5 % [facility] Comment: Interpretive Data Percent cell count reference ranges are not reported, since discordance with absolute values may lead to misinterpretation of CBC data. Current Interpretive Data was last revised on 2017. Blood 05/14/2024 5:35 AM EXECUTIVE WELLNESS PROGRAMS DIRECTOR 05/14/2024 6:20 AM EXECUTIVE WELLNESS PROGRAMS DIRECTOR us Alexis Sawyer MD LAB BLOOD ORDERABLES F inal Result [facility] One [facility] Department [place] [address] * (ABNORMAL) CBC with auto differential (05/14/2024 5:35 AM EXECUTIVE WELLNESS PROGRAMS DIRECTOR) [facility] WBC 18.8(H) 3.8 - 9.9 K/cumm Hgb 12.6 11.9 - 15.5 g/dL [facility] Hct 38.6 35.6 - 45.5 % [facility] Plt 274 150 - 400 K/cumm [facility] MPV 9.8 9.1 - 12.3 fL [facility] RBC 3.96 3.90 - 5.20 M/cumm [facility] MCV 97.5(H) 81.3 - 96.4 fL [facility] MCH 31.8 27.1 - 33.3 pg [facility] MCHC 32.6 32.3 - 35.7 g/dL [facility] RDW CV 14.2 11.1 - 14.9 % [facility] RDW SD 51.6(H) 35.7 - 48.1 fL [facility] NRBC abs 0.00 0.00 - 0.01 K/cumm [facility] Blood 05/14/2024 5:35 AM EXECUTIVE WELLNESS PROGRAMS DIRECTOR 05/14/2024 6:20 AM EXECUTIVE WELLNESS PROGRAMS DIRECTOR Alexis Sawyer MD LAB BLOOD ORDERABLES F inal Result Performing Organization Address City/[facility] de Phone Number [facility] One [facility] Department [place] [address] * aPTT (05/14/2024 5:35 AM EXECUTIVE WELLNESS PROGRAMS DIRECTOR) [facility] aPTT 32 28 - 38 sec Comment: Interpretive Data Heparin therapeutic range: 66.0 - 100.0 seconds. Range based on correlation with therapeutic heparin activity range of 0.3 - 0.7 Units/mL. Current interpretive data was last revised on 2023. Blood 05/14/2024 5:35 AM EXECUTIVE WELLNESS PROGRAMS DIRECTOR 05/14/2024 5:57 AM EXECUTIVE WELLNESS PROGRAMS DIRECTOR Alexis Sawyer MD LAB BLOOD ORDERABLES F inal Result Performing Organization Address City/State/[facility] Co de Phone Number [facility] [place] [address] * Protime-INR (05/14/2024 5:35 AM EXECUTIVE WELLNESS PROGRAMS DIRECTOR) Pathologist [facility] PT 12.2 9.7 - 13.0 sec INR 1.13 0.90 - 1.20 [facility] Comment: Interpretive data Oral anticoagulant therapeutic ranges: Venous thromboembolism prophylaxis or treatment: 2.0-3.0 CARDIOLOGY Standard range: 2.0-3.0 High-intensity range: 2.5-3.5 Refer to indication-specific guidelines for appropriate target ranges for prosthetic heart valve replacement. Current interpretive data was last revised on 2019. Blood 05/14/2024 5:35 AM EXECUTIVE WELLNESS PROGRAMS DIRECTOR 05/14/2024 5:57 AM EXECUTIVE WELLNESS PROGRAMS DIRECTOR Alexis Sawyer MD LAB BLOOD ORDERABLES F inal Result Performing Organization Address [facility] [place] [address] * Type and screen (05/14/2024 5:35 AM EXECUTIVE WELLNESS PROGRAMS DIRECTOR) [facility] Trey, indirect Negative ABO Rh O Positive [facility] Blood 05/14/2024 5:35 AM EXECUTIVE WELLNESS PROGRAMS DIRECTOR 05/14/2024 5:45 AM EXECUTIVE WELLNESS PROGRAMS DIRECTOR Narrative [facility] - 05/14/2024 6:53 AM EXECUTIVE WELLNESS PROGRAMS DIRECTOR Has the patient had Daratumumab or Isatuximab in the past 6 months?->Unknown Alexis Sawyer MD LAB BLOOD BANK TEST OR DERABLES Final Result Performing Organization Address [facility] [place] [address] * (ABNORMAL) Comprehensive metabolic panel (05/14/2024 5:35 AM EXECUTIVE WELLNESS PROGRAMS DIRECTOR) [facility] Sodium 134(L) 135 - 145 mmol/L Potassium, pl 4.7 3.3 - 4.9 mmol/L [facility] Chloride 101 97 - 110 mmol/L [facility] CO2 23 22 - 32 mmol/L [facility] Anion gap 10 2 - 15 mmol/L [facility] BUN 34(H) 6 - 25 mg/dL [facility] Creatinine 1.29(H) 0.60 - 1.10 mg/dL [facility] Glucose 149 70 - 199 mg/dL [facility] Comment: Interpretive Data Fasting glucose >/= 126 [...] 2022. Calcium 8.8 8.5 - 10.3 mg/dL [facility] Bilirubin, total 0.7 0.1 - 1.2 mg/dL [facility] Protein, pl 7.3 6.5 - 8.5 g/dL [facility] Albumin 3.9 3.5 - 5.0 g/dL [facility] Alk phos 134(H) 40 - 130 Units/L [facility] ALT 29 7 - 45 Units/L [facility] AST 39 10 - 45 Units/L [facility] Blood 05/14/2024 5:35 AM EXECUTIVE WELLNESS PROGRAMS DIRECTOR 05/14/2024 5:51 AM EXECUTIVE WELLNESS PROGRAMS DIRECTOR us Alexis Sawyer MD LAB BLOOD ORDERABLES F inal Result [facility] [place] [address] from Last 3 Months Insurance [facility] [address] [facility] [address] MEDICARE RAILROAD [employer] Advance Directives For more information, please contact: [phone] Documents on File Type Date Recorded 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
--- OUTSIDE RECORDS SUMMARY | 2024-05-24 20:52 | XMS_ITS | Referral Summary ---
Author Organization [facility] Address [address] [place] [address] Care Team Providers Care Machine Hamper Maker Name Role Phone Cedric Nguyen MD Primary Care Provide r Encounters Date Type Department Care Team Description 05/14/2024 5:23 AM SPACE CONTROLLER - 05/20/2024 6:45 PM SPACE CONTROLLER Hospital Encounter [address] [phone] Kenneth Vallecillo MD Theodoro, MD Olivia Wood, MD Brendon Zabala Caleb, MD Pubic ramus fracture, right, open, initial encounter (HCC) (Primary Dx); Fall, initial encounter; Hypoxia; Rhinovirus Discharge Disposition: Discharge to SNF 05/16/2024 Orders Only [facility] [address] 6th [place] [address] [place] [phone] Ngoc Singh MD Pubic ramus fracture, right, closed, initial encounter (HCC) (Primary Dx) 05/16/2024 6:50 AM SPACE CONTROLLER Ancillary Procedure [facility] V[facility] IP [address] [place] [phone] 03/17/2024 1:45 PM CDT Office Visit [facility] [address] 6th [address] [place] [phone] Chad Boudreaux NP 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) (Primary Dx) from Last 3 Months Allergies No known active allergies Medications levothyroxine (SYNTHROID) 137 mcg tablet Take by mouth dry mixer before breakfast Active omeprazole (PriLOSEC) 20 mg [...] 05/18/2024 Assessment & Plan (05/18/2024 7:53 AM SPACE CONTROLLER): 05/16 removed Briscoe- void check 05/17 noted agitation per nursing, and frequent incontinence, Bladder Scan 650 mL, Brisceo catheter placed UTI (urinary tract infection) 05/17/2024 Assessment & Plan (05/18/2024 7:47 AM SPACE CONTROLLER): 05/14 UA sent on admission, refluxed to CX 05/17 changed Cefepime to Keflex PO x 5 days (05/17-05/22) CX: 05/14 UCX: Klebsiella Pneumoniae ABX: Cefepime (05/14-05/17) Keflex (05/17-05/22) Pubic ramus fracture, right, closed, initial enc ounter 05/14/2024 Assessment & Plan (05/19/2024 1:46 PM SPACE CONTROLLER): - Orthopedics consult, non-op management - WBAT RLE - Pain control - PT/OT PLAN: Follow up with Dr. Singh, 06/29/21 at 12:30 weight bearing as tolerated, post orthopedic injury DVT prophylaxis Eliquis 2.5 mg pO x 4 weeks at discharge Possible syncopal fall 05/14/2024 Assessment & Plan (05/17/2024 8:26 AM SPACE CONTROLLER): - Orthostatics - TTE - Carotid duplex - F/u CT body read. ?Possible RUL consolidation on CXR + leukocytosis in ED for which she received a dose of cefepime in the ED 05/15: Syncope workup 05/16 Carotid ultrasounds completed- no interventions required 05/17 ECHO- results pending Discharge planning issues 05/14/2024 Assessment & Plan (05/19/2024 1:46 PM SPACE CONTROLLER): 05/14 Admitted, syncope, PT/OT 05/16 poorly controlled pain, started schedule pain medications 05/17 agitation, Briscoe catheter placed for urinary retention 05/18 requiring 1:1 sitter 05/19 still requiring 1:1 sitter Treatment Plan completed Acute pain 05/14/2024 Assessment & Plan (05/14/2024 2:29 PM SPACE CONTROLLER): 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 08/27/2022 Assessment & Plan (05/19/2024 12:09 PM SPACE CONTROLLER): Continue home Celexa 20 daily, Seroquel 50 [...] 08/01/2019 Assessment & Plan (05/14/2024 1:42 PM SPACE CONTROLLER): Continue home atorvastatin 10 daily Chronic low back pain 08/01/2019 Hypothyroid 08/01/2019 Assessment & Plan (05/14/2024 1:43 PM SPACE CONTROLLER): Continue home levothyroxine 137mcg daily Memory changes 08/01/2019 Major depressive disorder 08/01/2019 Essential (primary) hypertension 11/18/2016 Atherosclerosis of both carotid arteries 017 Assessment & Plan (05/18/2024 7:51 AM SPACE CONTROLLER): - History of R CEA (2016) and known completely occluded L ICA - repeat carotid duplex given possible syncope - patient should be on ASA 81mg once able to confirm she has no contraindications 05/18 started Aspirin 81 mg PO daily Social History Tobacco Use Types Packs/Day Years Used Date Smoking Tobacco: Never Smokeless Tobacco: Never Tobacco Cessation:Counseling Given: Not Answered [facility] Utilities Answer Date Recorded In the [...] often do you attend chur ch or baptist services? Never 05/20/2024 Do you belong to any clubs o r organizations such as islam groups, unions, fraternal or athletic groups, or [...] any time in the past 12 m [facility], were you homeless or living in a fdc (including now)? No 05/20/2024 Personal Safety Answer [...] Comments Blood Pressure 116/100 05/20/2024 5:11 PM SPACE CONTROLLER Pulse 99 05/20/2024 5:11 PM SPACE CONTROLLER Temperature 37.2 ??C (99 ??F) 05/20/2024 5:11 PM SPACE CONTROLLER Respiratory Rate 20 05/20/2024 5:11 PM SPACE CONTROLLER Oxygen Saturation 92% 05/20/2024 5:11 PM SPACE CONTROLLER Inhaled Oxygen Concentration - - Weight 100.7 kg (222 lb) 05/16/2024 9:35 PM SPACE CONTROLLER Height 163.8 cm (5' 4.5 ) 05/16/2024 9:35 PM SPACE CONTROLLER Body Mass Index 37.52 05/16/2024 9:35 PM SPACE CONTROLLER Plan of Treatment Not on file Procedures Procedure Name Priority Date/Time Associated Diagnosis Comments POCT GLUCOSE DEVICE Routine 05/20/2024 5 :16 PM SPACE CONTROLLER POCT GLUCOSE DEVICE Routine 05/20/2024 1 1:11 AM SPACE CONTROLLER POCT GLUCOSE DEVICE Routine 05/20/2024 7 :52 AM SPACE CONTROLLER EGFR Routine 05/19/2024 10:37 PM SPACE CONTROLLER BASIC METABOLIC PANEL Routine 05/19/2024 10:37 PM SPACE CONTROLLER POCT GLUCOSE DEVICE Routine 05/19/2024 9 :07 PM SPACE CONTROLLER POCT GLUCOSE DEVICE Routine 05/19/2024 5 :15 PM SPACE CONTROLLER POCT GLUCOSE DEVICE Routine 05/19/2024 1 1:11 AM SPACE CONTROLLER POCT GLUCOSE DEVICE Routine 05/19/2024 7 :27 AM SPACE CONTROLLER EGFR Routine 05/18/2024 9:10 PM SPACE CONTROLLER BASIC METABOLIC PANEL Routine 05/18/2024 9:10 PM SPACE CONTROLLER PHOSPHORUS Routine 05/18/2024 9:10 PM SPACE CONTROLLER MAGNESIUM Routine 05/18/2024 9:10 PM SPACE CONTROLLER CBC WITHOUT DIFFERENTIAL Routine 05/18/2024 9:10 PM SPACE CONTROLLER POCT GLUCOSE DEVICE Routine 05/18/2024 8 :55 PM SPACE CONTROLLER POCT GLUCOSE DEVICE Routine 05/18/2024 5 :27 PM SPACE CONTROLLER POCT GLUCOSE DEVICE Routine 05/18/2024 1 1:33 AM SPACE CONTROLLER POCT GLUCOSE DEVICE Routine 05/18/2024 8 :55 AM SPACE CONTROLLER POCT GLUCOSE DEVICE Routine 05/17/2024 9 :46 PM SPACE CONTROLLER EGFR Routine 05/17/2024 9:33 PM SPACE CONTROLLER BASIC METABOLIC PANEL Routine 05/17/2024 9:33 PM SPACE CONTROLLER PHOSPHORUS Routine 05/17/2024 9:33 PM SPACE CONTROLLER MAGNESIUM Routine 05/17/2024 9:33 PM SPACE CONTROLLER CBC WITHOUT DIFFERENTIAL Routine 05/17/2024 9:33 PM SPACE CONTROLLER POCT GLUCOSE DEVICE Routine 05/17/2024 9 :02 PM SPACE CONTROLLER POCT GLUCOSE DEVICE Routine 05/17/2024 5 :22 PM SPACE CONTROLLER POCT GLUCOSE DEVICE Routine 05/17/2024 1 1:53 AM SPACE CONTROLLER POCT GLUCOSE DEVICE Routine 05/17/2024 8 :45 AM SPACE CONTROLLER POTASSIUM, WHOLE BLOOD Routine 05/16/2024 11:23 PM SPACE CONTROLLER POCT GLUCOSE DEVICE Routine 05/16/2024 8 :26 PM SPACE CONTROLLER EGFR Routine 05/16/2024 8:26 PM SPACE CONTROLLER BASIC METABOLIC PANEL Routine 05/16/2024 8:26 PM SPACE CONTROLLER PHOSPHORUS Routine 05/16/2024 8:26 PM SPACE CONTROLLER MAGNESIUM Routine 05/16/2024 8:26 PM SPACE CONTROLLER CBC WITHOUT DIFFERENTIAL Routine 05/16/2024 8:26 PM SPACE CONTROLLER POCT GLUCOSE DEVICE Routine 05/16/2024 6 :10 PM SPACE CONTROLLER POCT GLUCOSE DEVICE Routine 05/16/2024 1 :34 PM SPACE CONTROLLER US CAROTIDS DUPLEX BILATERAL IP Routine 05/16/2024 1:16 PM SPACE CONTROLLER POCT GLUCOSE DEVICE Routine 05/16/2024 8 :21 AM SPACE CONTROLLER EGFR Routine 05/15/2024 9:06 PM SPACE CONTROLLER BASIC METABOLIC PANEL Routine 05/15/2024 9:06 PM SPACE CONTROLLER PHOSPHORUS Routine 05/15/2024 9:06 PM SPACE CONTROLLER MAGNESIUM Routine 05/15/2024 9:06 PM SPACE CONTROLLER CBC WITHOUT DIFFERENTIAL Routine 05/15/2024 9:06 PM SPACE CONTROLLER POCT GLUCOSE DEVICE Routine 05/15/2024 8 :48 PM SPACE CONTROLLER POCT GLUCOSE DEVICE Routine 05/15/2024 5 :34 PM SPACE CONTROLLER POCT GLUCOSE DEVICE Routine 05/15/2024 1 2:51 PM SPACE CONTROLLER POCT GLUCOSE DEVICE Routine 05/15/2024 7 :55 AM SPACE CONTROLLER POTASSIUM, WHOLE BLOOD Timed 05/14/2024 11:06 PM SPACE CONTROLLER EGFR Routine 05/14/2024 9:02 PM SPACE CONTROLLER BASIC METABOLIC PANEL Routine 05/14/2024 9:02 PM SPACE CONTROLLER PHOSPHORUS Routine 05/14/2024 9:02 PM SPACE CONTROLLER MAGNESIUM Routine 05/14/2024 9:02 PM SPACE CONTROLLER CBC WITHOUT DIFFERENTIAL Routine 05/14/2024 9:02 PM SPACE CONTROLLER POCT GLUCOSE DEVICE Routine 05/14/2024 6 :10 PM SPACE CONTROLLER XR PELVIS 3 OR MORE VIEWS ED 05/14/2024 10:46 AM SPACE CONTROLLER RESPIRATORY PATHOGEN PANEL Routine 05/14/2024 10:[address] BODY OUTSIDE REFERENCE Routine 05/14/2024 10:12 AM SPACE CONTROLLER URINALYSIS, MICROSCOPIC ONLY STAT 05/14/2024 10:12 AM SPACE CONTROLLER URINE CULTURE STAT 05/14/2024 10:12 AM SPACE CONTROLLER URINALYSIS AND REFLEX TO MICROSCOPIC AND CULTURE STAT 05/14/2024 10:12 AM SPACE CONTROLLER XR CHEST 1 VIEW Critical/Life-T hreatening 05/14/2024 7:22 AM SPACE CONTROLLER B CHECK SAMPLE STAT 05/14/2024 6:48 AM SPACE CONTROLLER NEURO CT OUTSIDE CONSULT Routine 05/14/2024 6:09 AM SPACE CONTROLLER NEURO CT OUTSIDE REFERENCE Routine 05/14/2024 6:[address] BODY OUTSIDE CONSULT Routine 05/14/2024 5:59 AM SPACE CONTROLLER XR TRANSFER OF OUTSIDE FILMS Routine 05/14/2024 5:56 AM SPACE CONTROLLER XR TRANSFER OF OUTSIDE FILMS Routine 05/14/2024 5:[address] BODY OUTSIDE REFERENCE Routine 05/14/2024 5:46 AM SPACE CONTROLLER NEURO CT OUTSIDE REFERENCE Routine 05/14/2024 5:44 AM SPACE CONTROLLER EGFR STAT 05/14/2024 5:35 AM SPACE CONTROLLER DIFFERENTIAL AUTO STAT 05/14/2024 5:3 5 AM SPACE CONTROLLER TYPE AND SCREEN STAT 05/14/2024 5:35 AM SPACE CONTROLLER APTT STAT 05/14/2024 5:35 AM SPACE CONTROLLER PROTIME-INR STAT 05/14/2024 5:35 AM SPACE CONTROLLER COMPREHENSIVE METABOLIC PANEL STAT 05/14/2024 5:35 AM SPACE CONTROLLER CBC WITH AUTO DIFFERENTIAL STAT 05/14/2024 5:35 AM SPACE CONTROLLER from Last 3 Months Results * POCT glucose (05/20/2024 5:16 PM SPACE CONTROLLER) Glucose, POC 126 70 - 199 mg/dL Blood 05/20/2024 5:16 PM SPACE CONTROLLER 05/20/2024 5:16 PM SPACE CONTROLLER Landy Sawant MD LAB POCT ORDERABLES - DEVICE Final Result Performing Organization Address [facility] de Phone Number [facility] [place] [address] * POCT glucose (05/20/2024 11:11 AM SPACE CONTROLLER) Glucose, POC 118 70 - 199 mg/dL Blood 05/20/2024 11:1 1 AM SPACE CONTROLLER 05/20/2024 11:11 AM SPACE CONTROLLER Landy Sawant MD LAB POCT ORDERABLES - DEVICE Final Result Performing Organization Address [facility] de Phone Number [facility] [place] [address] * POCT glucose (05/20/2024 7:52 AM SPACE CONTROLLER) Glucose, POC 125 70 - 199 mg/dL Blood 05/20/2024 7:52 AM SPACE CONTROLLER 05/20/2024 7:52 AM SPACE CONTROLLER Landy Sawant MD LAB POCT ORDERABLES - DEVICE Final Result Performing Organization Address [facility] de Phone Number [facility] [place] [address] * eGFR (05/19/2024 10:37 PM SPACE CONTROLLER) eGFR 63 >=60 mL/min/1. 73 m2 Comment: [...] reviewed 2021. Blood 05/19/2024 10:3 7 PM SPACE CONTROLLER 05/19/2024 10:53 PM SPACE CONTROLLER Landy Sawant MD LAB BLOOD ORDERABLES F inal Result [facility] Department [place] [address] * (ABNORMAL) Basic metabolic panel (05/19/2024 10:37 PM SPACE CONTROLLER) Sodium 138 135 - 145 mmol/L Potassium, [...] [facility]ENTER Blood 05/19/2024 10:3 7 PM SPACE CONTROLLER 05/19/2024 10:53 PM SPACE CONTROLLER Landy Sawant MD LAB BLOOD ORDERABLES F inal Result Performing Organization Address City/[facility] Co de Phone Number [facility] [place] [address] * POCT glucose (05/19/2024 9:07 PM SPACE CONTROLLER) Glucose, POC 114 70 - 199 mg/dL Blood 05/19/2024 9:07 PM SPACE CONTROLLER 05/19/2024 9:07 PM SPACE CONTROLLER Landy Sawant MD LAB POCT ORDERABLES - DEVICE Final Result Performing Organization Address [facility] Co de Phone Number [facility] [place] [address] * POCT glucose (05/19/2024 5:15 PM SPACE CONTROLLER) Glucose, POC 121 70 - 199 mg/dL Blood 05/19/2024 5:15 PM SPACE CONTROLLER 05/19/2024 5:15 PM SPACE CONTROLLER Landy Sawant MD LAB POCT ORDERABLES - DEVICE Final Result Performing Organization Address [facility] Co de Phone Number [facility] [place] [address] * POCT glucose (05/19/2024 11:11 AM SPACE CONTROLLER) Glucose, POC 118 70 - 199 mg/dL Blood 05/19/2024 11:1 1 AM SPACE CONTROLLER 05/19/2024 11:11 AM SPACE CONTROLLER us Landy Sawant MD LAB POCT ORDERABLES - DEVICE Final Result Performing Organization Address [facility] de Phone Number [facility] [place] [address] * POCT glucose (05/19/2024 7:27 AM SPACE CONTROLLER) [facility] Glucose, POC 112 70 - 199 mg/dL Blood 05/19/2024 7:27 AM SPACE CONTROLLER 05/19/2024 7:27 AM SPACE CONTROLLER Landy Sawant MD LAB POCT ORDERABLES - DEVICE Final Result Performing Organization Address [facility] de Phone Number [facility] [place] [address] * (ABNORMAL) eGFR (05/18/2024 9:10 PM SPACE CONTROLLER) [facility] eGFR 53(L) >=60 mL/min/1. 73 [...] last reviewed 2021. Blood 05/18/2024 9:10 PM SPACE CONTROLLER 05/18/2024 9:26 PM SPACE CONTROLLER us Landy Sawant MD LAB BLOOD ORDERABLES F inal Result [facility] [place] [address] * (ABNORMAL) CBC without differential (05/18/2024 9:10 PM SPACE CONTROLLER) WBC 9.8 3.8 - 9.9 K/cumm Hgb [...] [facility] Blood 05/18/2024 9:10 PM SPACE CONTROLLER 05/18/2024 9:26 PM SPACE CONTROLLER Landy Sawant MD LAB BLOOD ORDERABLES F inal Result Performing Organization Address [facility] Co de Phone Number [facility] [place] [address] * Phosphorus (05/18/2024 9:10 PM SPACE CONTROLLER) [facility] Phosphorus, pl 2.7 2.3 - 4.5 mg/dL Blood 05/18/2024 9:10 PM SPACE CONTROLLER 05/18/2024 9:26 PM SPACE CONTROLLER Landy Sawant MD LAB BLOOD ORDERABLES F inal Result Performing Organization Address [facility] Co de Phone Number [facility] [place] [address] * Magnesium (05/18/2024 9:10 PM SPACE CONTROLLER) [facility] Magnesium 2.5 1.4 - 2.5 mg/dL Blood 05/18/2024 9:10 PM SPACE CONTROLLER 05/18/2024 9:26 PM SPACE CONTROLLER Landy Sawant MD LAB BLOOD ORDERABLES F inal Result Performing Organization Address [facility] Co de Phone Number [facility] [place] [address] * (ABNORMAL) Basic metabolic panel (05/18/2024 9:10 PM SPACE CONTROLLER) [facility] Sodium 138 135 - 145 [...] [facility] Blood 05/18/2024 9:10 PM SPACE CONTROLLER 05/18/2024 9:26 PM SPACE CONTROLLER Result [facility] Landy Sawant MD LAB BLOOD ORDERABLES F inal Result Performing Organization Address [facility] Co de Phone Number [facility] Department [place] [address] * POCT glucose (05/18/2024 8:55 PM SPACE CONTROLLER) Glucose, POC 110 70 - 199 mg/dL Blood 05/18/2024 8:55 PM SPACE CONTROLLER 05/18/2024 8:55 PM SPACE CONTROLLER Result [facility] Landy Sawant MD LAB POCT ORDERABLES - DEVICE Final Result Performing Organization Address City/[facility]/ZIP Co de Phone Number [facility] Department [place] [address] * POCT glucose (05/18/2024 5:27 PM SPACE CONTROLLER) Glucose, POC 115 70 - 199 mg/dL Blood 05/18/2024 5:27 PM SPACE CONTROLLER 05/18/2024 5:27 PM SPACE CONTROLLER Result [facility] Landy Sawant MD LAB POCT ORDERABLES - DEVICE Final Result Performing Organization Address [facility] Co [place] [address] * POCT glucose (05/18/2024 11:33 AM SPACE CONTROLLER) Glucose, POC 139 70 - 199 mg/dL Blood 05/18/2024 11:3 3 AM SPACE CONTROLLER 05/18/2024 11:33 AM SPACE CONTROLLER Landy Sawant MD LAB POCT ORDERABLES - DEVICE Final Result Performing Organization Address [facility] Co de Phone Number [facility] [place] [address] * POCT glucose (05/18/2024 8:55 AM SPACE CONTROLLER) Glucose, POC 146 70 - 199 mg/dL Blood 05/18/2024 8:55 AM SPACE CONTROLLER 05/18/2024 8:55 AM SPACE CONTROLLER Landy Sawant MD LAB POCT ORDERABLES - DEVICE Final Result Performing Organization Address [facility] Co de Phone Number [facility] [place] [address] * POCT glucose (05/17/2024 9:46 PM SPACE CONTROLLER) Glucose, POC 144 70 - 199 mg/dL Blood 05/17/2024 9:46 PM SPACE CONTROLLER 05/17/2024 9:46 PM SPACE CONTROLLER Landy Sawant MD LAB POCT ORDERABLES - DEVICE Final Result Performing Organization Address City/[facility] Co de Phone Number [facility] [place] [address] * (ABNORMAL) eGFR (05/17/2024 9:33 PM SPACE CONTROLLER) Pathologist [facility] eGFR 51(L) >=60 mL/min/1. 73 m2 Comment: [...] last reviewed 2021. Blood 05/17/2024 9:33 PM SPACE CONTROLLER 05/17/2024 9:54 PM SPACE CONTROLLER us Landy Sawant MD LAB BLOOD ORDERABLES F inal Result [facility] Department of Laboratories [place], [place] [id number] * (ABNORMAL) CBC without differential (05/17/2024 9:33 PM SPACE CONTROLLER) Pathologist [facility] WBC 13.0(H) 3.8 - 9.9 K/cumm Hgb 10.8(L) 11.9 - 15.5 g/dL [facility] Hct 32.9(L) 35.6 - 45.5 % [facility] Blood 05/17/2024 9:33 PM SPACE CONTROLLER 05/17/2024 9:55 PM SPACE CONTROLLER Landy Sawant MD LAB BLOOD ORDERABLES F inal Result [facility] Department [place] [address] * Phosphorus (05/17/2024 9:33 PM SPACE CONTROLLER) Pathologist [facility] Phosphorus, pl 3.3 2.3 - 4.5 mg/dL Blood 05/17/2024 9:33 PM SPACE CONTROLLER 05/17/2024 9:54 PM SPACE CONTROLLER Landy Sawant MD LAB BLOOD ORDERABLES F inal Result [facility] [place] [address] * Magnesium (05/17/2024 9:33 PM SPACE CONTROLLER) Pathologist [facility] Magnesium 2.4 1.4 - 2.5 mg/dL Blood 05/17/2024 9:33 PM SPACE CONTROLLER 05/17/2024 9:54 PM SPACE CONTROLLER Landy Sawant MD LAB BLOOD ORDERABLES F inal Result Performing Organization Address City/[facility]/ZIP Co de Phone Number [facility] Department [place] [address] * (ABNORMAL) Basic metabolic panel (05/17/2024 9:33 PM SPACE CONTROLLER) [facility] Sodium 136 135 - 145 [...] [facility] Blood 05/17/2024 9:33 PM SPACE CONTROLLER 05/17/2024 9:54 PM SPACE CONTROLLER Landy Sawant MD LAB BLOOD ORDERABLES F inal Result Performing Organization Address [facility] Co de Phone Number [facility] Department [place] [address] * POCT glucose (05/17/2024 9:02 PM SPACE CONTROLLER) Glucose, POC 177 70 - 199 mg/dL Blood 05/17/2024 9:02 PM SPACE CONTROLLER 05/17/2024 9:02 PM SPACE CONTROLLER us Landy Sawant MD LAB POCT ORDERABLES - DEVICE Final Result Performing Organization Address [facility] Co de Phone Number [facility] [place] [address] * POCT glucose (05/17/2024 5:22 PM SPACE CONTROLLER) Glucose, POC 143 70 - 199 mg/dL Blood 05/17/2024 5:22 PM SPACE CONTROLLER 05/17/2024 5:22 PM SPACE CONTROLLER Result [facility] Landy Sawant MD LAB POCT ORDERABLES - DEVICE Final Result Performing Organization Address [facility] de Phone Number [facility] [place] [address] * POCT glucose (05/17/2024 11:53 AM SPACE CONTROLLER) Glucose, POC 160 70 - 199 mg/dL Blood 05/17/2024 11:5 3 AM SPACE CONTROLLER 05/17/2024 11:53 AM SPACE CONTROLLER Result [facility] Landy Sawant MD LAB POCT ORDERABLES - DEVICE Final Result Performing Organization Address [facility] Co de Phone Number [facility] [place] [address] * POCT glucose (05/17/2024 8:45 AM SPACE CONTROLLER) Glucose, POC 135 70 - 199 mg/dL Blood 05/17/2024 8:45 AM SPACE CONTROLLER 05/17/2024 8:45 AM SPACE CONTROLLER us Landy Sawant MD LAB POCT ORDERABLES - DEVICE Final Result Performing Organization Address City/[facility] Co de Phone Number [facility] [place] [address] * Potassium, whole blood (05/16/2024 11:23 PM SPACE CONTROLLER) Pathologist [facility] Potassium, bld 4.7 3.3 - 4.9 mmol/L Blood 05/16/2024 11:2 3 PM SPACE CONTROLLER 05/16/2024 11:29 PM SPACE CONTROLLER Landy Sawant MD LAB BLOOD ORDERABLES F inal Result Performing Organization Address [facility] de Phone Number [facility] Department [place] [address] * (ABNORMAL) eGFR (05/16/2024 8:26 PM SPACE CONTROLLER) eGFR 37(L) >=60 mL/min/1. 73 m2 Comment: [...] last reviewed 2021. Blood 05/16/2024 8:26 PM SPACE CONTROLLER 05/16/2024 8:43 PM SPACE CONTROLLER Landy Sawant MD LAB BLOOD ORDERABLES F inal Result Performing Organization Address City/[facility] Co de Phone Number [facility] [place] [address] * POCT glucose (05/16/2024 8:26 PM SPACE CONTROLLER) [facility] Glucose, POC 148 70 - 199 mg/dL Blood 05/16/2024 8:26 PM SPACE CONTROLLER 05/16/2024 8:26 PM SPACE CONTROLLER Landy Sawant MD LAB POCT ORDERABLES - DEVICE Final Result Performing Organization Address [facility] de Phone Number [facility] [place] [address] * (ABNORMAL) CBC without differential (05/16/2024 8:26 PM SPACE CONTROLLER) [facility] WBC 14.3(H) 3.8 - 9.9 [...] [facility] Blood 05/16/2024 8:26 PM SPACE CONTROLLER 05/16/2024 8:43 PM SPACE CONTROLLER Result [facility] Landy Sawant MD LAB BLOOD ORDERABLES F inal Result Performing Organization Address City/[facility] Co de Phone Number [facility] [place] [address] * Phosphorus (05/16/2024 8:26 PM SPACE CONTROLLER) Pathologist [facility] Phosphorus, pl 3.9 2.3 - 4.5 mg/dL Blood 05/16/2024 8:26 PM SPACE CONTROLLER 05/16/2024 8:43 PM SPACE CONTROLLER Result [facility] Landy Sawant MD LAB BLOOD ORDERABLES F inal Result Performing Organization Address City/[facility] Co de Phone Number [facility] [place] [address] * Magnesium (05/16/2024 8:26 PM SPACE CONTROLLER) [facility] Magnesium 2.5 1.4 - 2.5 mg/dL Blood 05/16/2024 8:26 PM SPACE CONTROLLER 05/16/2024 8:43 PM SPACE CONTROLLER Result [facility] Landy Sawant MD LAB BLOOD ORDERABLES F inal Result Performing Organization Address [facility] Co de Phone Number [facility] [place] [address] * (ABNORMAL) Basic metabolic panel (05/16/2024 8:26 PM SPACE CONTROLLER) Pathologist [facility] Sodium 130(L) 135 - 145 mmol/L Potassium, [...] [facility] Blood 05/16/2024 8:26 PM SPACE CONTROLLER 05/16/2024 8:43 PM SPACE CONTROLLER Landy Sawant MD LAB BLOOD ORDERABLES F inal Result [facility] Department [place] [address] * POCT glucose (05/16/2024 6:10 PM SPACE CONTROLLER) [facility] Glucose, POC 161 70 - 199 mg/dL Blood 05/16/2024 6:10 PM SPACE CONTROLLER 05/16/2024 6:10 PM SPACE CONTROLLER Landy Sawant MD LAB POCT ORDERABLES - DEVICE Final Result Performing Organization Address City/[facility] Co de Phone Number [facility] [place] [address] * POCT glucose (05/16/2024 1:34 PM SPACE CONTROLLER) Glucose, POC 163 70 - 199 mg/dL Blood 05/16/2024 1:34 PM SPACE CONTROLLER 05/16/2024 1:34 PM SPACE CONTROLLER Landy Sawant MD LAB POCT ORDERABLES - DEVICE Final Result Performing Organization Address [facility] Co de Phone Number [facility] [place] [address] * US Carotids Duplex Bilateral (05/16/2024 1:16 PM SPACE CONTROLLER) Anatomical Region Laterality Modality Vascular Bilateral Ultrasound 05/16/2024 11:5 7 AM SPACE CONTROLLER Narrative 05/18/2024 12:28 AM SPACE CONTROLLER [facility] - Department of Vascular Surgery, Vascular Laboratory [address] [place] [address] Carotid Duplex Ultrasound Report Patient Name: PATRICIA VALDEZ : 1940 (83y 10m) Study Date: 05/16/2024 11:57:01 AM Gender: F Tech: [place] Location: [id number] Ref Provider: LANDY SAWANT Quality: Adequate Order [...] PSV ?60 cm/sec - ?? FINDINGS: Performing Senior Qc Technician: Batsheva Kohli RVT. Rt Common Carotid Artery: [...] Nii Wilson MD FACS 05/18/2024 12:27:58 AM SPACE CONTROLLER Procedure Note Nii Wilson MD - 05/18/2024 [facility] - Department of Vascular Surgery,Vascular Laboratory [address] [place] [address] Carotid Duplex Ultrasound Report Patient Name: PATRICIA VALDEZ : 1940 (83y 10m) Study Date: 05/16/2024 11:57:01 AM Gender: F Tech: [place] Location: [id number] Ref Provider: LANDY SAWANT Quality: Adequate Order [...] RT VERT PSV 60cm/sec - FINDINGS: Performing Senior Qc Technician: Batsheva Kohli RVT. Rt Common Carotid Artery: [...] Nii Wilson MD FACS 05/18/2024 12:27:58 AM SPACE CONTROLLER Landy Sawant MD IMG US PROCEDURES Chanelle l Result * POCT glucose (05/16/2024 8:21 AM SPACE CONTROLLER) Glucose, POC 138 70 - 199 mg/dL Blood 05/16/2024 8:21 AM SPACE CONTROLLER 05/16/2024 8:21 AM SPACE CONTROLLER Landy Sawant MD LAB POCT ORDERABLES - DEVICE Final Result Performing Organization Address City/State/[facility] Co de Phone Number [facility] Department [place] [address] * (ABNORMAL) eGFR (05/15/2024 9:06 PM SPACE CONTROLLER) eGFR 35(L) >=60 mL/min/1. 73 m2 Comment: [...] last reviewed 2021. Blood 05/15/2024 9:06 PM SPACE CONTROLLER 05/15/2024 9:34 PM SPACE CONTROLLER us Landy Sawant MD LAB BLOOD ORDERABLES F inal Result [facility] Department [place] [address] * (ABNORMAL) CBC without differential (05/15/2024 9:06 PM SPACE CONTROLLER) WBC 14.8(H) 3.8 - 9.9 K/cumm Hgb [...] [facility] Blood 05/15/2024 9:06 PM SPACE CONTROLLER 05/15/2024 9:29 PM SPACE CONTROLLER Landy Sawant MD LAB BLOOD ORDERABLES F inal Result Performing Organization Address [facility] Co de Phone Number [facility] [place] [address] * Phosphorus (05/15/2024 9:06 PM SPACE CONTROLLER) [facility] Phosphorus, pl 3.7 2.3 - 4.5 mg/dL Blood 05/15/2024 9:06 PM SPACE CONTROLLER 05/15/2024 9:34 PM SPACE CONTROLLER Result [facility] Landy Sawant MD LAB BLOOD ORDERABLES F inal Result Performing Organization Address [facility] de Phone Number [facility] [place] [address] * Magnesium (05/15/2024 9:06 PM SPACE CONTROLLER) [facility] Magnesium 2.3 1.4 - 2.5 mg/dL Blood 05/15/2024 9:06 PM SPACE CONTROLLER 05/15/2024 9:34 PM SPACE CONTROLLER Result [facility] Landy Sawant MD LAB BLOOD ORDERABLES F inal Result Performing Organization Address [facility] Co de Phone Number [facility] [place] [address] * (ABNORMAL) Basic metabolic panel (05/15/2024 9:06 PM SPACE CONTROLLER) [facility] Sodium 137 135 - 145 [...] [facility] Blood 05/15/2024 9:06 PM SPACE CONTROLLER 05/15/2024 9:34 PM SPACE CONTROLLER Landy Sawant MD LAB BLOOD ORDERABLES F inal Result [facility] [place] [address] * POCT glucose (05/15/2024 8:48 PM SPACE CONTROLLER) Glucose, POC 162 70 - 199 mg/dL Blood 05/15/2024 8:48 PM SPACE CONTROLLER 05/15/2024 8:48 PM SPACE CONTROLLER Landy Sawant MD LAB POCT ORDERABLES - DEVICE Final Result [facility] [place] [address] * POCT glucose (05/15/2024 5:34 PM SPACE CONTROLLER) Glucose, POC 138 70 - 199 mg/dL Blood 05/15/2024 5:34 PM SPACE CONTROLLER 05/15/2024 5:34 PM SPACE CONTROLLER Result [facility] Landy Sawant MD LAB POCT ORDERABLES - DEVICE Final Result Performing Organization Address [facility] de Phone Number [facility] [place] [address] * POCT glucose (05/15/2024 12:51 PM SPACE CONTROLLER) Glucose, POC 138 70 - 199 mg/dL Blood 05/15/2024 12:5 1 PM SPACE CONTROLLER 05/15/2024 12:51 PM SPACE CONTROLLER Result [facility] Landy Sawant MD LAB POCT ORDERABLES - DEVICE Final Result Performing Organization Address [facility] de Phone Number [facility] Department [place] [address] * (ABNORMAL) POCT glucose (05/15/2024 7:55 AM SPACE CONTROLLER) Glucose, POC 276(H) 70 - 199 mg/dL Blood 05/15/2024 7:55 AM SPACE CONTROLLER 05/15/2024 7:55 AM SPACE CONTROLLER Result [facility] Landy Sawant MD LAB POCT ORDERABLES - DEVICE Final Result Performing Organization Address [facility] de Phone Number [facility] [place] [address] * (ABNORMAL) Potassium, whole blood (05/14/2024 11:06 PM SPACE CONTROLLER) Potassium, bld 5.0(H) 3.3 - 4.9 mmol/L Blood 05/14/2024 11:0 6 PM SPACE CONTROLLER 05/14/2024 11:18 PM SPACE CONTROLLER Landy Sawant MD LAB BLOOD ORDERABLES F inal Result Performing Organization Address [facility] Co de Phone Number [facility] [place] [address] * (ABNORMAL) eGFR (05/14/2024 9:02 PM SPACE CONTROLLER) eGFR 31(L) >=60 mL/min/1. 73 m2 Comment: [...] last reviewed 2021. Blood 05/14/2024 9:02 PM SPACE CONTROLLER 05/14/2024 9:24 PM SPACE CONTROLLER Landy Sawant MD LAB BLOOD ORDERABLES F inal Result Performing Organization Address [facility] Co de Phone Number [facility] Department [place] [address] * (ABNORMAL) CBC without differential (05/14/2024 9:02 PM SPACE CONTROLLER) Pathologist [facility] WBC 12.7(H) 3.8 - 9.9 K/cumm Hgb [...] [facility] Blood 05/14/2024 9:02 PM SPACE CONTROLLER 05/14/2024 9:24 PM SPACE CONTROLLER Landy Sawant MD LAB BLOOD ORDERABLES F inal Result Performing Organization Address [facility] de Phone Number [facility] [place] [address] * (ABNORMAL) Phosphorus (05/14/2024 9:02 PM SPACE CONTROLLER) Pathologist [facility] Phosphorus, pl 5.1(H) 2.3 - 4.5 mg/dL Blood 05/14/2024 9:02 PM SPACE CONTROLLER 05/14/2024 9:24 PM SPACE CONTROLLER Landy Sawant MD LAB BLOOD ORDERABLES F inal Result Performing Organization Address City/[facility] Co de Phone Number [facility] Department [place] [address] * Magnesium (05/14/2024 9:02 PM SPACE CONTROLLER) Pathologist [facility] Magnesium 2.2 1.4 - 2.5 mg/dL Blood 05/14/2024 9:02 PM SPACE CONTROLLER 05/14/2024 9:24 PM SPACE CONTROLLER Landy Sawant MD LAB BLOOD ORDERABLES F inal Result [facility] Department [place] [address] * (ABNORMAL) Basic metabolic panel (05/14/2024 9:02 PM SPACE CONTROLLER) Pathologist [facility] Sodium 135 135 - 145 mmol/L Potassium, [...] [facility] Blood 05/14/2024 9:02 PM SPACE CONTROLLER 05/14/2024 9:24 PM SPACE CONTROLLER us Landy Sawant MD LAB BLOOD ORDERABLES F inal Result [facility] [place] [address] * POCT glucose (05/14/2024 6:10 PM SPACE CONTROLLER) Glucose, POC 148 70 - 199 mg/dL Blood 05/14/2024 6:10 PM SPACE CONTROLLER 05/14/2024 6:10 PM SPACE CONTROLLER Landy Sawant MD LAB POCT ORDERABLES - DEVICE Final Result Performing Organization Address [facility] Co de Phone Number [facility] Department [place] [address] * XR Pelvis 3 or More Views (05/14/2024 10:46 AM SPACE CONTROLLER) Anatomical Region Laterality Modality Pelvis, Body N/A Computed Radiogr aphy 05/14/2024 11:1 9 AM SPACE CONTROLLER Impressions 05/14/2024 11:19 AM SPACE CONTROLLER There are fractures of the right superior and inferior pubic ramus as well as the right sacral ala. ??Contrast is noted within the urinary bladder. No definite extraluminal contrast. ??If there is concern for bladder injury, consider CT cystogram. Electronically signed by: Kendal Braun M.D. Narrative 05/14/2024 11:19 AM SPACE CONTROLLER EXAMINATION: XR PELVIS 3 OR MORE VIEWS [...] Respiratory pathogen panel Nasopharyngeal (05/14/2024 10:15 AM SPACE CONTROLLER) Pathologist [facility] Influenza A RNA Not Detected Not Detected [...] [facility] Nasopharyngeal 05/14/2024 10 :15 AM SPACE CONTROLLER 05/14/2024 10:43 AM SPACE CONTROLLER Narrative [facility] - 05/14/2024 11:35 AM SPACE CONTROLLER Is the Patient experiencing symptoms consistent with COVID?->Yes Surveillance testing for transplant patient?->No ??Interpretive Data [employer] FilmArray Respiratory Panel (RP2.1) assay is a [...] assay has FDA clearance for testing of WOOL HAT FLANGER swabs. ??The performance of additional specimen types has been assessed by the performing laboratory. ??The performance characteristics of this assay have been determined by [facility] Molecular Infectious Disease Laboratory. Current interpretive data was last revised on 22. us Frandy Ferreira MD LAB MICROBIOLOGY - GENERAL ORDERABLES Final Result [facility] Department [place] [address] * CT Body Outside Reference (05/14/2024 10:12 AM SPACE CONTROLLER) Impressions [facility] - 05/14/2024 10:12 AM SPACE CONTROLLER These images are for Reference purposes only and have not been reviewed by [facility]. ??There will be no report generated by a [facility] Radiologist. Narrative [facility] - 05/14/2024 10:12 AM SPACE CONTROLLER EXAMINATION: ??Images For Reference Purposes Only us Frandy Ferreira MD IMG CT PROCEDURES Final Re sult Performing Organization Address [facility]/ZIP Co de Phone Number [facility] * (ABNORMAL) Urinalysis reflex to microscopic and culture Urine (05/14/2024 10:12 AM SPACE CONTROLLER) Color, ur Straw Yellow Clarity, ur Cloudy(A) Clear [facility] Specific gravity, ur 1.014 1.003 - 1.030 [facility] pH, urine 6.0 [facility] Comment: Interpretive Data ? Urine pH is affected by diet, medications, systemic acid-base disturbances, and renal tubular function. ??pH may affect urinary stone formation. ??For example, urine pH below 6.0 may help reduce the tendency for calcium phosphate stones and pH greater than 6.0 may reduce the tendency for uric acid stone formation. Source: [facility] Current Interpretive Data was last revised on 2017 Protein, ur ql Negative Negative [facility] Glucose, ur ql Negative Negative [facility] Ketones, ur Negative Negative [facility] Bilirubin, ur Negative Negative [facility] Blood, ur Negative Negative [facility] Urobilinogen, ur <2.0 <2.0 mg/dL [facility] Nitrite, ur Negative Negative [facility] Leukocyte esterase, ur 3+(A) Negative [facility] UA reflex comment Reflex to microscopic UA will be performed. [facility] Urine 05/14/2024 10:1 2 AM SPACE CONTROLLER 05/14/2024 10:17 AM SPACE CONTROLLER us Alexis Sawyer MD LAB MICROBIOLOGY - GEN ERAL ORDERABLES Final Result Performing Organization Address City/[facility]/ZIP Co de Phone Number [facility] [place] [address] * (ABNORMAL) Urinalysis, microscopic only (05/14/2024 10:12 AM SPACE CONTROLLER) WBC, ur >50(A) 0 - 5 /HPF RBC, ur 11-20(A) 0 - 2 /HPF [facility] Epithelial cells, squamous, ur 1-5 0 - 5 /HPF [facility] Bacteria, ur 1+(A) [facility] Culture Reflex Comment Reflex to urine culture will be performed. [facility] Urine 05/14/2024 10:1 2 AM SPACE CONTROLLER 05/14/2024 10:17 AM SPACE CONTROLLER Alexis Sawyer MD LAB URINE ORDERABLES F inal Result [facility] [place] [address] * (ABNORMAL) Urine culture Urine (05/14/2024 10:12 AM SPACE CONTROLLER) Report Final Report: Greater than or equal to 100,000 colonies/mL of Klebsiella pneumoniae (.) Organism KLEBSIELLA PNEUMONIAE [facility] Urine 05/14/2024 10:1 2 AM SPACE CONTROLLER 05/14/2024 5:03 PM SPACE CONTROLLER Narrative [facility] - 05/16/2024 12:42 PM SPACE CONTROLLER Urine culture reflexed based upon urinalysis results. Testing performed by [facility] Microbiology Laboratory ([phone]) Organism Antibiotic Method Susceptibility Klebsiella pneumoniae Ampicillin [...] ERAL ORDERABLES Final Result [facility] [place] [address] * XR Chest 1 Vw Portable (05/14/2024 7:22 AM SPACE CONTROLLER) Anatomical Region Laterality Modality Body, Chest N/A Computed Radiogr aphy 05/14/2024 9:44 AM SPACE CONTROLLER Impressions 05/14/2024 10:36 AM SPACE CONTROLLER No prior examinations available for comparison. Correlation [...] Kendal Braun M.D. Narrative 05/14/2024 10:36 AM SPACE CONTROLLER EXAMINATION: 1 view chest radiograph Procedure Note [...] Result * Check Sample (05/14/2024 6:48 AM SPACE CONTROLLER) ABO Rh O Positive [facility] OTHER 05/14/2024 6:48 AM SPACE CONTROLLER 05/14/2024 6:55 AM SPACE CONTROLLER Kenneth Vallecillo MD LAB BLOOD ORDERABLES Final Re sult [facility] [place] [address] [facility] * Neuro CT Outside Consult (05/14/2024 6:09 AM SPACE CONTROLLER) Anatomical Region Laterality Modality N/A Computed Tomogra phy 05/14/2024 6:35 AM SPACE CONTROLLER Impressions 05/14/2024 9:34 AM SPACE CONTROLLER No acute cervical spine fracture. The findings, conclusions and recommendations within this report do not replace the initial findings, conclusions ??and recommendations made at the facility where the study was performed based upon the imaging and clinical condition at that time. ??Comparison with the prior report and clinical history is necessary. ??The provided images may or may not represent the [place] source data set and thus may contain changes that may lower the accuracy of this second-opinion interpretation. Dictated by: Virgilio Dempsey MD The radiology attending physician has personally reviewed this study, and had reviewed and/or edited this written report and agrees with it. Electronically signed by: Evelyne Saleh M.D. Narrative 05/14/2024 9:34 AM SPACE CONTROLLER EXAMINATION: RADIOLOGY CONSULTATION ON OUTSIDE IMAGING STUDY [...] images may or may not represent the [place] source data set and thus may contain [...] Neuro CT Outside Reference (05/14/2024 6:04 AM SPACE CONTROLLER) Impressions [facility] - 05/14/2024 6:04 AM SPACE CONTROLLER These images are for Reference purposes only and have not been reviewed by [facility]. ??There will be no report generated by a [facility] Radiologist. Narrative [facility] - 05/14/2024 6:04 AM SPACE CONTROLLER EXAMINATION: ??Images For Reference Purposes Only Alexis Sawyer MD IMG CT PROCEDURES Chanelle l Result [facility] * CT Body Outside Consult (05/14/2024 5:59 AM SPACE CONTROLLER) Anatomical Region Laterality Modality Body N/A Computed Tomogra phy 05/14/2024 6:16 AM SPACE CONTROLLER Impressions 05/14/2024 10:03 AM SPACE CONTROLLER This study was initially nominated as a consult on outside images via Outside Image Sharing Service. However, a consult was not performed because no images were included in the packet. ??If interpretation is desired, uploaded images appropriately and resubmitted for consultation. Accordingly, there will be no separate report of this study generated by a [facility] Radiologist. Dictated by: Kavitha Ba MD The radiology attending physician has personally reviewed this study, and had reviewed and/or edited this written report and agrees with it. Electronically signed by: Kendal Braun M.D. Narrative 05/14/2024 10:03 AM SPACE CONTROLLER EXAMINATION: ??CHANGE CONSULT ON OUTSIDE IMAGES TO [...] report of this study generated by a [facility] Radiologist. Dictated by: Kavitha Ba MD The radiology attending physician has personally reviewed this study, and had reviewed and/or edited this written report and agrees with it. Electronically signed by: Kendal Braun M.D. Alexis Sawyer MD IMG CT PROCEDURES Chanelle l Result * XR Outside Reference (05/14/2024 5:56 AM SPACE CONTROLLER) Impressions [facility] - 05/14/2024 5:56 AM SPACE CONTROLLER These images are for Reference purposes only and have not been reviewed by [facility]. ??There will be no report generated by a [facility] Radiologist. Narrative [facility] - 05/14/2024 5:56 AM SPACE CONTROLLER EXAMINATION: ??Images For Reference Purposes Only Result [facility] Alexis Sawyer MD IMG XR PROCEDURES Chanelle l Result Performing Organization Address [facility] Co de Phone Number [email or web address] * XR Outside Reference (05/14/2024 5:48 AM SPACE CONTROLLER) Impressions [facility] - 05/14/2024 5:48 AM SPACE CONTROLLER These images are for Reference purposes only and have not been reviewed by [facility]. ??There will be no report generated by a [facility] Radiologist. Narrative [facility] - 05/14/2024 5:48 AM SPACE CONTROLLER EXAMINATION: ??Images For Reference Purposes Only Alexis Sawyer MD IMG XR PROCEDURES Chanelle l Result [facility] * CT Body Outside Reference (05/14/2024 5:46 AM SPACE CONTROLLER) Impressions [facility] - 05/14/2024 5:46 AM SPACE CONTROLLER These images are for Reference purposes only and have not been reviewed by [facility]. ??There will be no report generated by a [facility] Radiologist. Narrative [facility] - 05/14/2024 5:46 AM SPACE CONTROLLER EXAMINATION: ??Images For Reference Purposes Only Alexis Sawyer MD IMG CT PROCEDURES Chanelle l Result Performing Organization Address [facility] de Phone Number [email or web address] * Neuro CT Outside Reference (05/14/2024 5:44 AM SPACE CONTROLLER) Impressions [facility] - 05/14/2024 5:44 AM SPACE CONTROLLER These images are for Reference purposes only and have not been reviewed by [facility]. ??There will be no report generated by a [facility] Radiologist. Narrative [facility] - 05/14/2024 5:44 AM SPACE CONTROLLER EXAMINATION: ??Images For Reference Purposes Only Alexis Sawyer MD IMG CT PROCEDURES Chanelle l Result Performing Organization Address [facility] de Phone Number [facility] * (ABNORMAL) eGFR (05/14/2024 5:35 AM SPACE CONTROLLER) eGFR 42(L) >=60 mL/min/1. 73 m2 Comment: [...] last reviewed 2021. Blood 05/14/2024 5:35 AM SPACE CONTROLLER 05/14/2024 5:51 AM SPACE CONTROLLER us Alexis Sawyer MD LAB BLOOD ORDERABLES F inal Result [facility] Department of [place] [address] * (ABNORMAL) Differential, auto (05/14/2024 5:35 AM SPACE CONTROLLER) Neutrophil abs 15.6(H) 1.5 - 6.5 K/cumm [...] revised on 2017. Lymphocyte pct 8.3 % [facility] Comment: Interpretive Data Percent cell count reference ranges are not reported, since discordance with absolute values may lead to misinterpretation of CBC data. Current Interpretive Data was last revised on 2017. Monocyte pct 7.2 % [facility] Comment: Interpretive Data Percent cell count reference [...] revised on 2017. Blood 05/14/2024 5:35 AM SPACE CONTROLLER 05/14/2024 6:20 AM SPACE CONTROLLER us Alexis Sawyer MD LAB BLOOD ORDERABLES F inal Result [facility] Department [place] [address] * (ABNORMAL) CBC with auto differential (05/14/2024 5:35 AM SPACE CONTROLLER) WBC 18.8(H) 3.8 - 9.9 K/cumm Hgb [...] [facility] Blood 05/14/2024 5:35 AM SPACE CONTROLLER 05/14/2024 6:20 AM SPACE CONTROLLER Alexis Sawyer MD LAB BLOOD ORDERABLES F inal Result Performing Organization Address [facility] de Phone Number [facility] Department [place] [address] * aPTT (05/14/2024 5:35 AM SPACE CONTROLLER) aPTT 32 28 - 38 sec Comment: Interpretive Data Heparin therapeutic range: 66.0 - 100.0 seconds. Range based on correlation with therapeutic heparin activity range of 0.3 - 0.7 Units/mL. Current interpretive data was last revised on 2023. Blood 05/14/2024 5:35 AM SPACE CONTROLLER 05/14/2024 5:57 AM SPACE CONTROLLER Alexis Sawyer MD LAB BLOOD ORDERABLES F inal Result Performing Organization Address [facility] [place] [address] * Protime-INR (05/14/2024 5:35 AM SPACE CONTROLLER) PT 12.2 9.7 - 13.0 sec INR 1.13 0.90 - 1.20 [facility] Comment: Interpretive data Oral anticoagulant therapeutic ranges: Venous thromboembolism prophylaxis or treatment: 2.0-3.0 CARDIOLOGY Standard range: 2.0-3.0 High-intensity range: 2.5-3.5 Refer to indication-specific guidelines for appropriate target ranges for prosthetic heart valve replacement. Current interpretive data was last revised on 2019. Blood 05/14/2024 5:35 AM SPACE CONTROLLER 05/14/2024 5:57 AM SPACE CONTROLLER Result [facility] Alexis Sawyer MD LAB BLOOD ORDERABLES F inal Result Performing Organization Address [facility] de Phone Number [facility] Department [place] [address] * Type and screen (05/14/2024 5:35 AM SPACE CONTROLLER) Trey, indirect Negative ABO Rh O Positive [facility] Blood 05/14/2024 5:35 AM SPACE CONTROLLER 05/14/2024 5:45 AM SPACE CONTROLLER Narrative [facility] - 05/14/2024 6:53 AM SPACE CONTROLLER Has the patient had Daratumumab or Isatuximab in the past 6 months?->Unknown Alexis Sawyer MD LAB BLOOD BANK TEST OR DERABLES Final Result [facility] [place] [address] * (ABNORMAL) Comprehensive metabolic panel (05/14/2024 5:35 AM SPACE CONTROLLER) Pathologist [facility] Sodium 134(L) 135 - 145 mmol/L Potassium, [...] AST 39 10 - 45 Units/L [facility] Blood 05/14/2024 5:35 AM SPACE CONTROLLER 05/14/2024 5:51 AM SPACE CONTROLLER us Alexis Sawyer MD LAB BLOOD ORDERABLES F inal Result [facility] [place] [address] from Last 3 Months Insurance MEDICARE [employer] Digital Keys [facility] MEDICARE [place] [address] MEDICARE [facility] Advance Directives For more information, please contact: [phone] Documents on File Type Date Recorded Patient Engine Repairer Service Expl anation ADVANCE DIRECTIVE 05/17/2024 1:13 PM POLS T * Full Code (Latest Code Status on File) Date Activated Date Inactivated Comments 05/14/2024 5:58 PM 05/20/2024 11:11 PM Care Teams 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
--- OUTSIDE RECORDS SUMMARY | 2024-05-24 20:53 | XMS_ITS | Encounter Summary ---
Author Organization [facility] Healthcare Address [address] [place] [address] Care Team Providers Care Patient Access Specialist Name Role Phone Unavailable Primary Care Provider Unavailabl e Encounter Details Date Type Department Care Team (Latest Contact Info) Description 09/16/2016 1:22 PM CDT - 09/16/2016 11:59 PM CDT Hospital Encounter [facility] INTERIM [phone] Adam Beaver MD [address] [facility] [address] [place] [address] Discharge Disposition: Discharge to home or self [...] agrees with it. ACC# ??Date Time ??Exam [id number] Sep 16, 2016 14:14:[address] Angio Head w/o ??and ??w cont [id number] Sep 16, 2016 14:14:[address] Angio Neck EXAMINATION: ?? Computed tomography [...] by the right sided circulation at the pauma of Weeks. There is severe atherosclerotic calcification of the right internal carotid artery distal to the bifurcation, residual lumen measuring 1.2 mm compared to distal normal arterial lumen of 4.8 cm (75% stenosis). The visualized aortic arch appears normal with normal configuration of the great vessels. The innominate artery and both subclavian arteries are normal in course and caliber. The cbturd-js-Nisfei is complete. The anterior and middle cerebral [...] to the bifurcation with reconstitution at the pauma of Weeks. Requested By: ADAM BEAVER ??Garret Dictated By: ?? RAUL ECHEVARRIA M.D. ??on Sep 16 2016 ??3:40P This document has been electronically signed by: MESFIN QUINTERO M.D. on Sep 16 2016 ??5:11P [id number] Procedure Note Miscellaneous, Notinfile / Provider, MD Luisito - 10/30/2016 Garret JOHNSON M.D. FINAL REPORT The radiology attending physician has personally reviewed this study, and has reviewed and/or edited this written report and agrees with it. ACC# Date Time Exam [id number] Sep 16, 2016 14:14:[address] Angio Head w/o and w cont [id number] Sep 16, 2016 14:14:[address] Angio Neck EXAMINATION: Computed tomography angiography [...] by the right sided circulation at the pauma of Weeks. There is severe atherosclerotic calcification of the right internal carotid artery distal to the bifurcation, residual lumen measuring 1.2 mm compared to distal normal arterial lumen of 4.8 cm (75% stenosis). The visualized aortic arch appears normal with normal configuration of the great vessels. The innominate artery and both subclavian arteries are normal in course and caliber. The nlkdpv-td-Epemei is complete. The anterior and middle cerebral [...] to the bifurcation with reconstitution at the pauma of Weeks. Requested By: ADAM BEAVER M.D. Dictated By: RAUL ECHEVARRIA M.D. on Sep 16 2016 3:40P This document has been electronically signed by: MESFIN QUINTERO M.D. on Sep 16 2016 5:11P [id number] us Not In File Miscellaneous IMG CT [...] agrees with it. ACC# ??Date Time ??Exam [id number] Sep 16, 2016 14:14:[address] Angio Head w/o ??and ??w cont [id number] Sep 16, 2016 14:14:[address] Angio Neck EXAMINATION: ?? Computed tomography [...] by the right sided circulation at the pauma of Weeks. There is severe atherosclerotic calcification of the right internal carotid artery distal to the bifurcation, residual lumen measuring 1.2 mm compared to distal normal arterial lumen of 4.8 cm (75% stenosis). The visualized aortic arch appears normal with normal configuration of the great vessels. The innominate artery and both subclavian arteries are normal in course and caliber. The mayxpl-dx-Mqlmlz is complete. The anterior and middle cerebral [...] to the bifurcation with reconstitution at the pauma of Weeks. Requested By: ADAM BEAVER ??Radha. Dictated By: ?? RAUL ECHEVARRIA M.D. ??on Sep 16 2016 ??3:40P This document has been electronically signed by: MESFIN QUINTERO M.D. on Sep 16 2016 ??5:11P [id number] Procedure Note Miscellaneous, Notinfile - 10/30/2016 Garret JOHNSON M.D. FINAL REPORT The radiology attending physician has personally reviewed this study, and has reviewed and/or edited this written report and agrees with it. ACC# Date Time Exam [id number] Sep 16, 2016 14:14:[address] Angio Head w/o and w cont [id number] Sep 16, 2016 14:14:[address] Angio Neck EXAMINATION: Computed tomography angiography [...] by the right sided circulation at the pauma of Weeks. There is severe atherosclerotic calcification of the right internal carotid artery distal to the bifurcation, residual lumen measuring 1.2 mm compared to distal normal arterial lumen of 4.8 cm (75% stenosis). The visualized aortic arch appears normal with normal configuration of the great vessels. The innominate artery and both subclavian arteries are normal in course and caliber. The fgggla-zr-Wgvavo is complete. The anterior and middle cerebral [...] to the bifurcation with reconstitution at the pauma of Weeks. Requested By: ADAM BEAVER M.D. Dictated By: RAUL ECHEVARRIA M.D. on Sep 16 2016 3:40P This document has been electronically signed by: MESFIN QUINTERO M.D. on Sep 16 2016 5:11P [id number] us Not In File Miscellaneous IMG CT PROCEDURES Chanelle l Result * POCT creatinine (09/16/2016 1:58 PM CDT) Creatinine POC 1.0 0.6 - 1.1 mg/dL [facility] Blood specimen (specimen) 09/16/2016 1:58 PM CDT 09/16/2016 1:58 PM CDT us Adam Beaver MD POINT OF CARE TEST ORDERABLES Fi nal Result Performing Organization Address City/State/[facility] Co de Phone Number [facility] Department [place] [address] documented in this encounter Visit Diagnoses Not on filedocumented in this encounter
--- OUTSIDE RECORDS SUMMARY | 2024-05-24 20:53 | XMS_ITS | Encounter Summary ---
Author Organization [facility] Address [address] [place] [address] Phone Care Team Providers Care Adjunct Philosophy Faculty Name Role Phone Cedric Nguyen MD Primary Care Provide r Reason for Visit * Reason Comments Alzheimer's Disease Encounter Details Date Type Department Care Team (Late st Contact Info) Description 08/27/2022 1:00 PM CDT Office Visit [facility] [address] 6th [address] [place] [address] Elnaa Oliver NP [address] [place] [address] Late onset Alzheimer's disease with behavioral disturbance [...] today Additional Resources and Support: Alzheimer's Association [facility] Chapter: ; (toll free); http://www.alz.org, The Alzheimer's Association 29/12 Helpline provides reliable information and support to all those who need assistance. Call toll-free anytime day or night at . Caregiver Guide: tips for caregivers of people with Alzheimer's dementia, www.jordy.nih.gov/Alzheimers /Publication/Hkxvmt-wwnydy-gvzbybyrst-disease/about-guide Memory Senior Living Solution: [place] is to extend and improve quality time at home for people living with dementia and their care partners, or Memorycare.org Fanta Coburn R.N. Application Manager Alzheimer's Association [address] [place] [address] Toll Free: [phone] ext [phone] Email: The best way to reach our team is via My Chart, this is a secure way for us to communicate about your health care. Please call The My Chart Support Desk: [phone] for help with My Chart, or [phone] to obtain a link for access. documented in this encounter Progress Notes * Elana Oliver NP - 08/27/2022 1:00 PM CDT [facility] OFFICE VISIT SHELBIE Lara (Nurse Practitioner) [facility] Department of Neurology [...] the patient lives with her daughter in [facility]. Did not tolerate donepezil/Aricept, will hold off on Namenda/memantine for now, patient and daughter leaning towardnot interested in a trial. Today's Visit: There has not been recent changes in overall health. She is living at the halfway about 7 miles from daughter. Her ativan [...] sister. She forgets she lives in a halfway. She cannot make a menu selection. CS [...] memory loss. Medical Records Review: I reviewed [facility] notes and prior Neuropsychometric testing scores. PHYSICAL [...] compared prior testing scores. Neurobehavioral test results: [facility] Neurobehavioral Status Exam Results 08/01/2019 08/14/2020 08/27/2021 08/27/2022 Repository ICF signed? No No No Yes Verbal Fluency Total Score (No Data) 12 7 6 [place] Naming (15 item) Total Score 13 13 [...] (No Data) (No Data) Clinical Dementia Rating: [facility] CDR/DIAGNOSIS NEW 08/01/2019 08/14/2020 08/27/2021 08/27/2022 Repository [...] Alzheimer's dementia. [place] facility since our last visit, her primary [...] to our care consult for questions regarding [place] Medicaid F/u prn No orders of the [...] Additional Resources and Support: Alzheimer's Association of [place] Chapter: ; (toll free); http://www.alz.org, The Alzheimer's Association 29/12 Helpline provides reliable information and support to all those who need assistance. Call toll-free anytime day or night at . Caregiver Guide: tips for caregivers of people with Alzheimer's dementia, www.jordy.nih.gov/Alzheimers /Publication/Kjyrja-iarbhc-hqrrqdvcee-disease/about-guide Memory Senior Living Solution: [place] is to extend and improve quality time at home for people living with dementia and their care partners, or Memorycare[facility]org Fanta Coburn R.N. Application Manager Alzheimer's Association [address] [place] [address] Toll Free: [phone] ext [phone] Email: The best way to reach our team is via My Chart, this is a secure way for us to communicate about your health care. Please call The My Chart Support Desk: [phone] for help with My Chart, or [phone] to obtain a link for access. My [...] 05/20/2024 added in this encounter Care Teams Adjunct Philosophy Faculty Relationship Specialty Start Date End Date Cedric Nguyen MD [address] [place] [address] PCP - General 09/17/16 documented as of this encounter
--- OUTSIDE RECORDS SUMMARY | 2024-05-24 20:53 | XMS_ITS | Encounter Summary ---
Author Organization [facility] Address [address] [place] [address] Phone Care Team Providers Care User Interface Artist Name Role Phone Cedric Nguyen MD Primary Care Provide r Reason for Visit * Reason Onset Date Comments Last Progress Note 09/07/2023 Encounter Details Date Type Department Care Team (Late st Contact Info) Description 09/07/2023 Telephone [place] [id number] [facility] First Floor [address] [place] [address] Mare Morales RMA Last Progress [...] most recent office notes? If questions callback [phone] or fax [phone]. documented in this encounter Plan of Treatment Not on file documented as of this encounter Visit Diagnoses Not on filedocumented in this encounter Care Teams User Interface Artist Relationship Specialty Start Date End Date Cedric Nguyen MD [address] [place] [address] PCP - General 09/17/16 documented as of this encounter
--- OUTSIDE RECORDS SUMMARY | 2024-05-24 20:53 | XMS_ITS | Encounter Summary ---
Author Organization [facility] Address [address] [place] [address] Phone Care Team Providers Care Cook Mayonnaise Name Role Phone Cedirc Nguyen MD Primary Care Provide r Encounter Details Date Type Department Care Team (Late st Contact Info) Description 09/24/2023 Orders Only [facility] [facility] First Floor [address] [place] [address] Chad Boudreaux NP [address] [place] [address] Social History Tobacco Use Types [...] documented as of this encounter Care Teams Cook Mayonnaise Relationship Specialty Start Date End Date Cedric Nguyen MD [address] [place] [id number] PCP - General 09/17/16 documented as of this encounter
--- OUTSIDE RECORDS SUMMARY | 2024-05-24 20:53 | XMS_ITS | Encounter Summary ---
Author Organization [facility] Healthcare Address [address] [place] [address] Care Team Providers Care Housing Project Manager Name Role Phone Cedric Nguyen MD Primary Care Provide r Encounter Details Date Type Department Care Team (Late st Contact Info) Description 08/01/2019 3:05 PM BID WRITER Lab [facility] Advanced Medicine [facility] ([facility]) [address] [place] [phone] Fabiano Jackson MD PhD [address] [place] [address] Memory changes Discharge Disposition: Discharge to home [...] Diagnosis Comments TSH Routine 08/01/2019 2:42 PM BID WRITER Memory changes VITAMIN B12 Routine 08/01/2019 2:42 PM BID WRITER Memory changes COMPREHENSIVE METABOLIC PANEL Routine 08/01/2019 2:42 PM BID WRITER Memory changes documented in this encounter Results * Vitamin B12 (08/01/2019 2:42 PM BID WRITER) Pathologist [facility] Vitamin B12 603 230 - 1,250 pg/mL [facility] Blood specimen (specimen) 08/01/2019 2:42 PM BID WRITER 08/01/2019 2:53 PM BID WRITER Fabiano Jackson MD PhD LAB BLOOD ORDERABLES F inal Result Performing Organization Address [facility] de Phone Number [facility] Department [place] [address] * (ABNORMAL) TSH (08/01/2019 2:42 PM BID WRITER) [facility] Thyroid Stimulating Hormone 8.33(H) 0.30 - 4.20 mcIUnit/mL [facility] Blood specimen (specimen) 08/01/2019 2:42 PM BID WRITER 08/01/2019 2:53 PM BID WRITER Fabiano Jackson MD PhD LAB BLOOD ORDERABLES F inal Result Performing Organization Address [facility] de Phone Number [facility] Department [place] [address] * (ABNORMAL) Comprehensive metabolic panel (08/01/2019 2:42 PM BID WRITER) [facility] Sodium 136 135 - 145 mmol/L [facility] Potassium, pl 3.4 3.3 - 4.9 mmol/L [facility] Chloride 100 97 - 110 mmol/L [facility] CO2 27 22 - 32 mmol/L [facility] Anion gap 9 2 - 15 mmol/L [facility] BUN 16 8 - 25 mg/dL [facility] Creatinine 1.28(H) 0.60 - 1.10 mg/dL [facility] Glucose 186 70 - 199 mg/dL [facility] Comment: Interpretive Data Fasting glucose >/= [...] Calcium 8.6 8.5 - 10.3 mg/dL [facility] Bilirubin, total 0.2 0.1 - 1.2 mg/dL [facility] Protein, pl 7.3 6.5 - 8.5 g/dL [facility] Albumin 4.4 3.5 - 5.0 g/dL [facility] Alk phos 92 40 - 130 Units/L [facility] ALT 42 7 - 45 Units/L [facility] AST 32 10 - 45 Units/L [facility] Blood specimen (specimen) 08/01/2019 2:42 PM BID WRITER 08/01/2019 2:53 PM BID WRITER us Fabiano Jackson MD PhD LAB BLOOD ORDERABLES F inal Result [facility] [place] [address] documented in this encounter Visit Diagnoses Diagnosis Memory changes documented in this encounter Care Teams Housing Project Manager Relationship Specialty Start Date End Date Cedric Nguyen MD [address] [place] [address] PCP - General 09/17/16 documented as of this encounter
--- OUTSIDE RECORDS SUMMARY | 2024-05-24 20:53 | XMS_ITS | Encounter Summary ---
Author Organization [facility] Address [address] [place] [address] Phone Care Team Providers Care Receiving Associate Store Name Role Phone Cedric Nguyen MD Primary Care Provide r Reason for Visit * Reason Comments Memory Loss * Consultation (Routine) - Closed Specialty Diagnoses / Procedures Referred By Awa liu Referred To Contact Neurology Diagnoses Memory changes Unknown, Fabiano Ram MD PhD Phone: tel: fax: Referral ID Status Reason Start Date Expiration Date V isits Requested Visits Authorized [id number] Closed Specialty Services Required 06/15/2019 12/24/2020 1 1 Encounter Details Date Type Department Care Team (Late st Contact Info) Description 08/01/2019 1:00 PM WATCHMAKER APPRENTICE Office Visit [facility] [address] [place] [address] [place] [address] Fabiano Jackson MD PhD [address] [place] [address] 228- Memory changes (Primary Dx) Social History Tobacco [...] Comments Blood Pressure 140/74 08/01/2019 12:31 PM WATCHMAKER APPRENTICE Pulse 81 08/01/2019 12:31 PM WATCHMAKER APPRENTICE Temperature - - Respiratory Rate - - Oxygen Saturation - - Inhaled Oxygen Concentration - - Weight 80.8 kg (178 lb 3.2 oz) 08/01/2019 12:31 PM WATCHMAKER APPRENTICE Height 163.8 cm (5' 4.5 ) 08/01/2019 12:31 PM CS T Body Mass Index 30.12 08/01/2019 12:31 PM WATCHMAKER APPRENTICE documented in this encounter Patient Instructions * Patient Instructions* Fabiano Jackson MD PhD - 08/01/2019 1:00 PM WATCHMAKER APPRENTICE Your diagnosis is Alzhiemer's Disease. This is [...] do not drive, in keeping with the Instructor Physical Education's orders. Please consider a living will, end of life wishes, and discussing your medical Power of Composition Stone Applicator with your loved ones. This is important for everyone to do. For more information about Alzheimer's Disease, I recommend going to the Alzheimer's Association website at www.alz.org, or contacting the Alzheimer's Association by phone ([place] Chapter: ([phone]). The Alzheimer's Association offers a variety of excellent informational session and support groups, as well as a 24-hour helpline ( ). HMAKER APPRENTICE documented in this encounter Ordered Prescriptions Prescription [...] going on, was confused, and punched a special police, and spent a day in detention. She no longer drives. She does not [...] and can be violent (as with the special police). Regarding activities outside thehome, has few hobbies [...] does not smoke,or use illicit drugs. The analytics specialist told her not to drink. Current Outpatient [...] mcg tablet, Take 112 mcg by mouth associate professor of psychology before breakfast,Disp: , Rfl: ??? yimxksblfptg-Cq-vzfl-minerals tablet, Take by mouth, Disp: , Rfl: [...] for: VITB12 No results found for: TSH, W7KZVXW, T0ONOHB, THYROIDAB No results found for: WBC, HGB, [...] by the right sided circulation at the point lay ira of Weeks. There is severe atherosclerotic calcification of the right internal carotid artery distal to the bifurcation, residual lumen measuring 1.2 mm compared to distal normal arterial lumen of 4.8 cm (75% stenosis). The visualized aortic arch appears normal with normal configuration of the great vessels. The innominate artery and both subclavian arteries are normal in course and caliber. The smynbv-bl-Popyam is complete. The anterior and middle cerebral [...] to the bifurcation with reconstitution at the point lay ira of Weeks. NEUROBEHAVIORAL TESTING REPORT On formal neurobehavioral testing, which took 28 minutes, scores were in the mildly impaired range on tests of semantic memory (Farley Naming, verbal fluency). Scores were in the [...] Verbal Fluency Score (total # animals): (missed) Farley Naming Test 15 Item Farley Naming Total Score (out of 15): 13 [...] strength throughout. There was no pronator drift. Zliufy-iutd-kidtqy was normal. Fine finger movements were symmetric. [...] with gradual-onset, progressive cognitive impairment, which began [id number]. Based on the history and objective neuropsychometric [...] need for living will and power of real estate associate attorney planning, as well as considering the next level of care, if it becomes necessary. We referred the patient to the Alzheimer's Association. 5. Follow-up: The patient will follow up with the nurse practitioner in 12 months and with me in 24months. They should call if any issues arise before that. Fabiano Jackson MD, PhD Nurse [facility] [employer] HMAKER APPRENTICE documented in this encounter Plan of Treatment Not on file documented as of this encounter Results * (ABNORMAL) Comprehensive metabolic panel (08/01/2019 2:42 PM WATCHMAKER APPRENTICE) Sodium 136 135 - 145 mmol/L [facility] Potassium, pl 3.4 3.3 - 4.9 mmol/L [facility] Chloride 100 97 - 110 mmol/L [facility] CO2 27 22 - 32 mmol/L [facility] Anion gap 9 2 - 15 mmol/L [facility] BUN 16 8 - 25 mg/dL [facility] Creatinine 1.28(H) 0.60 - 1.10 mg/dL [facility] Glucose 186 70 - 199 mg/dL [facility] Comment: Interpretive Data Fasting glucose >/= [...] 2017. Calcium 8.6 8.5 - 10.3 mg/dL [facility] Bilirubin, total 0.2 0.1 - 1.2 mg/dL [facility] Protein, pl 7.3 6.5 - 8.5 g/dL [facility] Albumin 4.4 3.5 - 5.0 g/dL [facility] Alk phos 92 40 - 130 Units/L [facility] ALT 42 7 - 45 Units/L [facility] AST 32 10 - 45 Units/L [facility] Blood specimen (specimen) 08/01/2019 2:42 PM WATCHMAKER APPRENTICE 08/01/2019 2:53 PM WATCHMAKER APPRENTICE us Fabiano Jackson MD PhD LAB BLOOD ORDERABLES F inal Result [facility] [place] [address] * (ABNORMAL) TSH (08/01/2019 2:42 PM WATCHMAKER APPRENTICE) Thyroid Stimulating Hormone 8.33(H) 0.30 - 4.20 mcIUnit/mL [facility] Blood specimen (specimen) 08/01/2019 2:42 PM WATCHMAKER APPRENTICE 08/01/2019 2:53 PM WATCHMAKER APPRENTICE Fabiano Jackson MD PhD LAB BLOOD ORDERABLES F inal Result Performing Organization Address City/[facility]/[place] [address] * Vitamin B12 (08/01/2019 2:42 PM WATCHMAKER APPRENTICE) Pathologist [facility] Vitamin B12 603 230 - 1,250 pg/mL [facility] Blood specimen (specimen) 08/01/2019 2:42 PM WATCHMAKER APPRENTICE 08/01/2019 2:53 PM WATCHMAKER APPRENTICE Fabiano Jackson MD PhD LAB BLOOD ORDERABLES F inal Result Performing Organization Address City/[facility] [place] [address] documented in this encounter Visit Diagnoses Diagnosis [...] (SYNTHROID) 137 mcg tablet Take by mouth associate professor of psychology before breakfast multivitamin-Ca- iron-minerals tablet Take by mouth 2 hydroCHLOROthiaz iveth (HYDRODIURIL) 25 mg tablet Take 25 mg by mouth daily 2 added in this encounter Orders Outpatient Referral Count Last Ordered Date Fir st Ordered Date AMB REFERRAL TO NEUROLOGY 1 08/01/2019 documented in this encounter Care Teams Receiving Associate Store Relationship Specialty Start Date End Date Cedric Nguyen MD [address] [place] [address] PCP - General 09/17/16 documented as of this encounter
--- OUTSIDE RECORDS SUMMARY | 2024-05-24 20:53 | XMS_ITS | Encounter Summary ---
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 medical record bin to be uploaded into the patient???s chart. ASSORTER * Initial Assessments - Angelia Paredes LCSW - 05/20/2024 1:29 PM LENS ASSORTER Social Work Assessment Clinical Dx: Pubic ramus fracture, right, open, initial encounter (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 Source: Medicare, Medicaid Race: White/ Ethnicity: Non- Sexual Orientation : BELKYS Gender Identity: Female Service : None (05/20/241322) Current Situation: Current Situation Living Arrangements: prison Type of Residence: prison Income: Usp/Pension Education Level : Unable to assess How do you Pay for Medication: Insurance coverage Current Transportation: Family/friends, Other (Comment) (Nursing facility) What do you do with your Free Time: BELKYS (05/20/241322) Legal History: Legal History Legal Information : No legal issues (05/20/241322) Support Systems and Spirituality: Support Systems and Spirituality Support System: Children Children Name/Contact Information: Dandy Cuellar, Daughter [phone] and Torrey Navarro, Son [phone] Participation from Patient's Support System: Dandy reported that the patient has good support from her and her brother along with the nursing staff. Do you have a Anglican Preference or Affiliation?: Yes Preference/Affiliation : Latter-Day Are there any Anglican Practices that are important to maintain while [...] More than three times a week Attends Anglican Services: Never Active Member of Clubs or [...] as an unwitnessed Ground level [facility] jail sustaining right pubic ramus fracture . Social work consulted for high readmission risk. Per chart review, the patient is currently A&Ox1, which is the patient's baseline. Patient is unable to participate in social work assessment. Social work called patient's daughter Dandy Cuellar [phone] to complete social work assessment. Discussed bills, food, transportation, housing, and social supports. Patient' daughter Dandy denied current concerns or barriers in these areas. [facility] Dandy stated she would like the patient to return at discharge. Dandy stated that all patient's needs at being met at the jail. Dandy stated that she is wanting a call from the patient's case packer regarding a discharge planning update. Social work informed Dandy that social work would reach out to the patient's case packer.Dandy acknowledged and thanked social work. Social work messaged patient's CM Yvette and informed CM that Dandy is requesting an update. CM acknowledged. Patient is currently A&Ox1, which is the patient's baseline. Patient is unable to appoint a surrogate decision maker. Per patient daughter, the patient does not have a DPOA. Patient's daughter Dandy stated she makes decisions for the patient. Geraldo Gilbert [phone] No SW needs identified at this time. CM to follow for discharge planning. ALEXANDRA Manzanares, MANAGER INTERN ASSORTER ASSORTER * ECIN Note - Yvette Fan RN [...] 05/19/24 07 - 05/20/24 0659 Total Total 1602-5161 7434-5419 4817-9702 Total Intake (ml) 10 220 -- 100 [...] L Pupil Reaction Brisk Motor Function/Sensation Assessment Admissions Nurse;Dorsiflexion;Plantar flexion;Motor response;Sensation;Motor strength R Hand Admissions Nurse Strong L Hand Admissions Nurse Strong R Foot Dorsiflexion Moderate L Foot [...] Tongue Dry;Other (Comment) brown stains Mucous Membrane(s) Moist;[place];Intact Teeth and Gums Missingteeth Neck Symmetrical;Trachea midline [...] BMAT? Yes BMAT Level Level 2 - [place] Fall Risk Secondary Diagnosis 15 Ambulatory [...] Meds/Most Recent Administrations morphine injection 2 mg [[id number]] Ordering Provider: Alexis Sawyer MD Status: Completed [...] Performed by: Sarina Chavira RN Scanned Package: 7915-7432-24 haloperidol (HALDOL) injection 5 mg [[id number]] Ordering Provider: Alexis Sawyer MD Status: Completed [...] Performed by: Sarina Chavira RN Scanned Package: 09726-542-51 ketorolac (TORADOL) 15 mg/mL injection 15 mg [[id number]] Ordering Provider: Alexis Sawyer MD Status: Completed [...] Performed by: Sarina Chavira RN Scanned Package: 93898-515-93 vancomycin 1500 mg/515 mL in sodium chloride 0.9% (premix) 1,500 mg [[id number]] Ordering Provider: Frandy Ferreira MD Status: Completed [...] Performed by: Sarina Chavira RN Scanned Package: 2015-9294-83 haloperidol (HALDOL) injection 5 mg [[id number]] Ordering Provider: Frandy Ferreira MD Status: Completed [...] Performed by: Denise Mendez RN Scanned Package: 66693-025-49 fentaNYL (SUBLIMAZE) preservative free injection 50 mcg [[id number]] Ordering Provider: Frandy Ferreira MD Status: Completed [...] Performed by: Denise Mendez RN Scanned Package: 4330-3380-03 amLODIPine (NORVASC) tablet 10 mg [[id number]] Ordering Provider: Vikash Servin MD Status: Dispensed Ordered On: 05/14/241757 Start: 05/14/241829 Ordered Dose (Remaining/Total): 10 mg (--/--) Route: oral Frequency: Daily Ordered Rate/Order Duration: -- / -- Timestamps Action Dose Route Other Information 05/20/24 0829 Given 10 mg oral Performed by: Maritza Rene RN Scanned Package: 56214-492-94 atorvastatin (LIPITOR) tablet 10 mg [[id number]] Ordering Provider: Vikash Servin MD Status: Dispensed Ordered On: 05/14/241757 Start: 05/14/241829 Ordered Dose (Remaining/Total): 10 mg (--/--) Route: oral Frequency: Daily Ordered Rate/Order Duration: -- / -- Timestamps Action Dose Route Other Information 05/20/24828 Given 10 mg oral Performed by: Maritza Rene RN Scanned Package: 21653-894-88 citalopram (CeleXA) tablet 20 mg [[id number]] Ordering Provider: Vikash Servin MD Status: Dispensed Ordered On: 05/14/241757 Start: 05/14/241829 Ordered Dose (Remaining/Total): 20 mg (--/--) Route: oral Frequency: Daily Ordered Rate/Order Duration: -- / -- Timestamps Action Dose Route Other Information 05/20/24829 Given 20 mg oral Performed by: Maritza Rene RN Scanned Package: 8639-4539-99 docusate sodium (COLACE) capsule 100 mg [[id number]] Ordering Provider: Vikash Servin MD Status: Dispensed Ordered On: 05/14/241757 Start: 05/14/242099 Ordered Dose (Remaining/Total): 100 mg (--/--) Route: oral Frequency: 2 times daily Ordered Rate/Order Duration: -- / -- Timestamps Action Dose Route Other Information 05/19/242052 Given 100 mg oral Performed by: Hemal Sales RN Scanned Package: 37713-462-[address] (PROTONIX) extended release tablet 40 mg [[id number]] Ordering Provider: Vikash Servin MD Status: Dispensed Ordered On: 05/14/241757 Start: 05/14/241829 Ordered Dose (Remaining/Total): 40 mg (--/--) Route: oral Frequency: Daily Ordered Rate/Order Duration: -- / -- Admin Instructions: Do not crush, chew, cut, dissolve, open or otherwise manipulate tablet/capsule. Timestamps Action Dose Route Other Information 05/20/24 0830 Given 40 mg oral Performed by: Maritza Rene RN Scanned Package: 78616-689-06 QUEtiapine (SEROquel) tablet 50 mg [[id number]] Ordering Provider: Vikash Servin MD Status: Dispensed Ordered On: 05/14/241757 Start: 05/14/242099 Ordered Dose (Remaining/Total): 50 mg (--/--) Route: oral Frequency: Nightly Ordered Rate/Order Duration: -- / -- Timestamps Action Dose Route Other Information 05/19/242052 Given 50 mg oral Performed by: Hemal Sales RN Scanned Package: 97748-105-53, 15322-910-23 senna-docusate (PERICOLACE) 8.6-50 mg per tablet 1 tablet [[id number]] Ordering Provider: Vikash Servin MD Status: Dispensed Ordered On: 05/14/241757 Start: 05/14/242099 Ordered Dose (Remaining/Total): 1 tablet (--/--) Route: oral Frequency: 2 times daily Ordered Rate/Order Duration: -- / -- Admin Instructions: Hold for diarrhea. Timestamps Action Dose Route Other Information 05/19/242052 Given 1 tablet oral Performed by: Hemal Sales RN Scanned Package: 9038-7948-95 HYDROmorphone (DILAUDID) injection 0.5 mg [[id number]] Ordering Provider: Frandy Ferreira MD Status: Completed [...] Performed by: Denise Mendez RN Scanned Package: 7261-9643-85 haloperidol (HALDOL) injection 5 mg [[id number]] Ordering Provider: Berto Olivas MD Status: Completed [...] fentaNYL (SUBLIMAZE) preservative free injection 50 mcg [[id number]] Ordering Provider: Frandy Ferreira MD Status: Completed [...] Performed by: Denise Mendez RN Scanned Package: 3071-0894-02 haloperidol (HALDOL) injection 2.5 mg [[id number]] Ordering Provider: Berto Olivas MD Status: Completed [...] Performed by: Denise Mendez RN Scanned Package: 46262-302-23 levothyroxine (SYNTHROID) tablet 137 mcg [[id number]] Ordering Provider: Spike Tidwell MD Status: Dispensed [...] Performed by: Mandie Holly RN Scanned Package: 9788-8071-31 sodium chloride 0.9% bolus 500 mL [[id number]] Ordering Provider: Spike Tidwell MD Status: Completed (Past End Date/Time) Ordered On: 05/14/242251 Starts/Ends: 05/14/242329 - 05/14/242313 Ordered Dose (Remaining/Total): 500 mL (0/1) Route: intravenous Frequency: Once Ordered Rate/Order Duration: -- / -- Timestamps Action Dose Route Other Information 05/14/242313 New Bag 500 mL intravenous Performed by: Nataliya Saxena RN Scanned Package: 8573-5799-00 dextrose gel in packet 15 g [[id number]] Ordering Provider: Spike Tidwell MD Status: Verified [...] medication) dextrose (D10W) 10% bolus 250 mL [[id number]] Ordering Provider: Spike Tidwell MD Status: Verified [...] hour post treatment. If BG is less qdih812 mg/dL, repeat Q15 minute BG checks and treatment. Call MD for each episode of hypoglycemia. (No admins scheduled or recorded for this medication) glucagon injection 1 mg [[id number]] Ordering Provider: Spike Tidwell MD Status: Verified [...] (HumaLOG, ADMELOG) 100 unit/mL injection 0-5 Units [[id number]] Ordering Provider: Spike Tidwell MD Status: Dispensed [...] Performed by: Jen Li RN Scanned Package: 2332-1328-81 insulin lispro (HumaLOG, ADMELOG) 100 unit/mL injection 0-4 Units [[id number]] Ordering Provider: Spike Tidwell MD Status: Dispensed [...] this medication) QUEtiapine (SEROquel) tablet 25 mg [[id number]] Ordering Provider: Cain Demarco MD Status: Completed (Past End Date/Time) Ordered On: 05/15/24 1400 Starts/Ends: 05/15/24 1445 - 05/15/24 1448 Ordered Dose (Remaining/Total): 25 mg (0/1) Route: oral Frequency: Once Ordered Rate/Order Duration: -- / -- Timestamps Action Dose Route Other Information 05/15/24 1448 Given 25 mg oral Performed by: Betsy Hernandez Scanned Package: 69452-939-25 HYDROmorphone (DILAUDID) injection 0.2 mg [[id number]] Ordering Provider: Spike Tidwell MD Status: Completed (Past End Date/Time) Ordered On: 05/16/24 0057 Starts/Ends: 05/16/24 0130 - 05/16/24 0102 Ordered Dose (Remaining/Total): 0.2 mg (0/1) Route: intravenous Frequency: Once Ordered Rate/Order Duration: -- / 2 Minutes Timestamps Action Dose / Duration Route Other Information 05/16/24 0100 Given 0.2 mg 2 Minutes intravenous Performed by: Cuca Thakur RN Scanned Package: 2874-5954-80 sodium zirconium cyclosilicate (LOKELMA) packet 5 g [[id number]] Ordering Provider: Spike Tidwell MD Status: Completed [...] Performed by: Juanita Weems RN Scanned Package: 5674-9288-78 HYDROmorphone (DILAUDID) injection 0.2 mg [[id number]] Ordering Provider: Amador Nj MD Status: Completed (Past End Date/Time) Ordered On: 05/16/24 0844 Starts/Ends: 05/16/24914 - 05/16/24 0910 Ordered Dose (Remaining/Total): 0.2 mg (0/1) Route: intravenous Frequency: Once Ordered Rate/Order Duration: -- / 2 Minutes Timestamps Action Dose / Duration Route Other Information 05/16/24 0908 Given 0.2 mg 2 Minutes intravenous Performed by: Juanita Weems RN Scanned Package: 1877-6701-93 acetaminophen (TYLENOL) tablet 1,000 mg [[id number]] Ordering Provider: Falguni Galvez NP Status: Dispensed Ordered On: 05/16/24843 Start: 05/16/24 1200 Ordered Dose (Remaining/Total): 1,000 mg (--/--) Route: oral Frequency: Every 6 hours scheduled Ordered Rate/Order Duration: -- / -- Timestamps Action Dose Route Other Information 05/20/24 0638 Given 1,000 mg oral Performed by: Mandie Holly RN Scanned Package: 87228-249-80, 36961-550-91 methocarbamoL (ROBAXIN) tablet 500 mg [[id number]] Ordering Provider: Falguni Galvez NP Status: Dispensed Ordered On: 05/16/24843 Start: 05/16/24914 Ordered Dose (Remaining/Total): 500 mg (--/--) Route: oral Frequency: 3 times daily Ordered Rate/Order Duration: -- / -- Timestamps Action Dose Route Other Information 05/20/24 0829 Given 500 mg oral Performed by: Maritza Rene RN Scanned Package: 55112-434-20 ketorolac (TORADOL) 15 mg/mL injection 15 mg [[id number]] Ordering Provider: Falguni Galvez NP Status: Completed [...] Performed by: Jen Li RN Scanned Package: 82668-520-89 sodium chloride 0.9% bolus 500 mL [[id number]] Ordering Provider: Spike Tidwell MD Status: Completed [...] Performed by: Nataliya Saxena RN Scanned Package: 9159-3956-83 OLANZapine (ZyPREXA) 5 mg in sterile water 1 mL (5 mg/mL) syringe [[id number]] Ordering Provider: Spike Tidwell MD Status: Completed [...] Performed by: Nataliya Saxena RN Scanned Package: 4586-5010-26, 8673-9230-34 OLANZapine (ZyPREXA) 2.5 mg in sterile water 0.5 mL (5 mg/mL) syringe [[id number]] Ordering Provider: Spike Tidwell MD Status: Completed [...] Performed by: Nataliya Saxena RN Scanned Package: 13064-675-30, 10202-339-35, 1114-1775-05, 1612-8051-09, 6165-1874-37 heparin 5,000 unit/mL injection 5,000 Units [[id number]] Ordering Provider: Falguni Galvez NP Status: Dispensed Ordered On: 05/17/24 1023 Start: 05/17/24 2100 Ordered Dose (Remaining/Total): 5,000 Units (--/--) Route: subcutaneous Frequency: Every 8 hours scheduled Ordered Rate/Order Duration: -- / -- Timestamps Action Dose Route / Site Other Information 05/20/24 0638 Given 5,000 Units subcutaneous Left Lower Abdomen Performed by: Mandie Holly RN Scanned Package: 96447-390-19 cephalexin (KEFLEX) capsule 250 mg [[id number]] Ordering Provider: Falguni Galvez NP Status: Dispensed Ordered On: 05/17/24 1025 Starts/Ends: 05/17/24 1400 - 05/22/24 1559 Ordered Dose (Remaining/Total): 250 mg (11/20) Route: oral Frequency: 3 times daily Ordered Rate/Order Duration: -- / -- Timestamps Action Dose Route Other Information 05/20/24 0829 Given 250 mg oral Performed by: Maritza Rene RN Scanned Package: 02161-929-72 sodium chloride 0.9% flush 0.5-20 mL [[id number]] Ordering Provider: Spike Tidwell MD Status: Verified Ordered On: 05/17/24 2117 Start: 05/18/24 0000 Ordered Dose (Remaining/Total): 0.5-20 mL (--/--) Route: intra-catheter Frequency: Every 8 hours scheduled (alternate) Ordered Rate/Order Duration: -- / -- Admin Instructions: Flush volume based on line type and size. Timestamps Action Dose Route Other Information 05/20/248 Given 10 mL intra-catheter Performed by: Mandie Holly RN Scanned Package: [id number] sodium chloride 0.9% flush 0.5-20 mL [[id number]] Ordering Provider: pSike Tidwell MD Status: Verified Ordered On: 05/17/242116 Start: 05/17/242116 Ordered Dose (Remaining/Total): 0.5-20 mL (--/--) Route: intra-catheter Frequency: As needed Ordered Rate/Order Duration: -- / -- Admin Instructions: Flush volume based on line type and size. Flush before and after each use. (No admins scheduled or recorded for this medication) Carrier Fluids for Secondary Infusion - 0.9% Sodium Chloride [[id number]] Ordering Provider: Spike Tidwell MD Status: Verified [...] this medication) HYDROmorphone (DILAUDID) injection 0.2 mg [[id number]] Ordering Provider: Spike Tidwell MD Status: Completed (Past End Date/Time) Ordered On: 05/17/242116 Starts/Ends: 05/17/242199 - 05/17/242143 Ordered Dose (Remaining/Total): 0.2 mg (0/1) Route: intravenous Frequency: Once Ordered Rate/Order Duration: -- / 2 Minutes Timestamps Action Dose / Duration Route Other Information 05/17/242141 Given 0.2 mg 2 Minutes intravenous Performed by: Marjan Pritchett RN Scanned Package: 52163-170-04 bisacodyL (DULCOLAX) suppository 10 mg [[id number]] Ordering Provider: Falguni Galvez NP Status: Completed (Past End Date/Time) Ordered On: 05/18/24 0654 Starts/Ends: 05/18/24729 - 05/18/24901 Ordered Dose (Remaining/Total): 10 mg (0/1) Route: rectal Frequency: Once Ordered Rate/Order Duration: -- / -- Timestamps Action Dose Route Other Information 05/18/24901 Given 10 mg rectal Performed by: Marion Lamb Scanned Package: 2743-4488-98 polyethylene glycol (MIRALAX) packet 17 g [[id number]] Ordering Provider: Falguni Galvez NP Status: Dispensed Ordered On: 05/18/24653 Start: 05/18/24899 Ordered Dose (Remaining/Total): 17 g (--/--) Route: oral Frequency: Daily Ordered Rate/Order Duration: -- / -- Timestamps Action Dose Route Other Information 05/19/24 08 Given 17 g oral Performed by: Maria C Aguirre RN Scanned Package: 44021-845-68 aspirin enteric coated tablet 81 mg [[id number]] Ordering Provider: Falguni Galvez NP Status: Dispensed Ordered On: 05/18/24 0750 Start: 05/18/24 09 Ordered Dose (Remaining/Total): 81 mg (--/--) Route: oral Frequency: Daily Ordered Rate/Order Duration: -- / -- Admin Instructions: Do not crush, chew, cut, dissolve, open or otherwise manipulate tablet/capsule. Timestamps Action Dose Route Other Information 05/20/24 08 Given 81 mg oral Performed by: Maritza Rene RN Scanned Package: 81071-664-32 lidocaine (LIDODERM) 5 % patch 1 patch [[id number]] Ordering Provider: Cain Demarco MD Status: Dispensed [...] Aguirre, KHLOE Comments: avtar lozano Scanned Package: 9957-4450-24 OLANZapine (ZyPREXA ZYDIS) disintegrating tablet 5 mg [[id number]] Ordering Provider: Falguni Galvez NP Status: Completed (Past End Date/Time) Ordered On: 05/18/24 1434 Starts/Ends: 05/18/24 151 - 05/18/24 144 Ordered Dose (Remaining/Total): 5 mg (0/1) Route: sublingual Frequency: Once Ordered Rate/Order Duration: -- / -- Admin Instructions: SENDING ONE DOSE TO PT SPECIFIC BIN Timestamps Action Dose Route Other Information 05/18/24 144 Given 5 mg sublingual Performed by: Marion Lamb Scanned Package: 70312-090-18 oxyCODONE (ROXICODONE) tablet 5 mg [[id number]] Ordering Provider: Spike Tidwell MD Status: Completed (Past End Date/Time) Ordered On: 05/18/241921 Starts/Ends: 05/18/241999 - 05/18/241928 Ordered Dose (Remaining/Total): 5 mg (0/1) Route: oral Frequency: Once Ordered Rate/Order Duration: -- / -- Timestamps Action Dose Route Other Information 05/18/241928 Given 5 mg oral Performed by: Fe Bhatti, KHLOE Scanned Package: 54595-493-77 QUEtiapine (SEROquel) tablet 50 mg [[id number]] Ordering Provider: Spike Tidwell MD Status: Completed (Past End Date/Time) Ordered On: 05/18/242154 Starts/Ends: 05/18/242229 - 05/18/242214 Ordered Dose (Remaining/Total): 50 mg (0/1) Route: oral Frequency: Once Ordered Rate/Order Duration: -- / -- Timestamps Action Dose Route Other Information 12/11/24 2215 Given 50 mg oral Performed by: Fe Bhatti RN Scanned Package: 26167-069-19, 32860-496-80 bisacodyL (DULCOLAX) suppository 10 mg [[id number]] Ordering Provider: Falguni Galvez NP Status: Completed (Past End Date/Time) Ordered On: 05/19/24 06 Starts/Ends: 05/19/24 0700 - 05/19/24 0829 Ordered Dose (Remaining/Total): 10 mg (0/1) Route: rectal Frequency: Once Ordered Rate/Order Duration: -- / -- Timestamps Action Dose Route Other Information 05/19/24 0829 Given 10 mg rectal Performed by: Maria C Aguirre RN Scanned Package: 7212-2963-16 OLANZapine (ZyPREXA) 2.5 mg in sterile water 0.5 mL (5 mg/mL) syringe [[id number]] Ordering Provider: Falguni Galvez NP Status: Completed [...] by: Maria C Aguirre RN Scanned Package: 18321-907-71, 3833-2197-47 cholecalciferol (VITAMIN D-3) capsule 1,000 Units [[id number]] Ordering Provider: Falguni Galvez NP Status: Dispensed Ordered On: 05/19/24 1339 Start: 05/19/24 1415 Ordered Dose (Remaining/Total): 1,000 Units (--/--) Route: oral Frequency: Daily Ordered Rate/Order Duration: -- / -- Admin Instructions: Each capsule contains 1,000 units (25 mcg) of cholecalciferol. Timestamps Action Dose Route Other Information 05/20/24 0829 Given 1,000 Units oral Performed by: Maritza Rene RN Scanned Package: [id number] LORazepam (ATIVAN) tablet 0.5 mg [[id number]] Ordering Provider: Spike Tidwell MD Status: Verified Ordered On: 05/19/241852 Start: 05/20/24399 Ordered Dose (Remaining/Total): 0.5 mg (--/--) Route: oral Frequency: 2 times daily PRN Ordered Rate/Order Duration: -- / -- (No admins scheduled or recorded for this medication) HYDROmorphone (DILAUDID) injection 0.2 mg [[id number]] Ordering Provider: Spike Tidwell MD Status: Completed (Past End Date/Time) Ordered On: 05/19/241909 Starts/Ends: 05/19/241944 - 05/19/241915 Ordered Dose (Remaining/Total): 0.2 mg (0/1) Route: intravenous Frequency: Once Ordered Rate/Order Duration: -- / 2 Minutes Timestamps Action Dose / Duration Route Other Information 05/19/241913 Given 0.2 mg 2 Minutes intravenous Performed by: Nataliya Saxena RN Scanned Package: 54112-936-32 QUEtiapine (SEROquel) tablet 50 mg [[id number]] Ordering Provider: Spike Tidwell MD Status: Completed (Past End Date/Time) Ordered On: 05/19/242216 Starts/Ends: 05/19/242299 - 05/19/242232 Ordered Dose (Remaining/Total): 50 mg (0/1) Route: oral Frequency: Once Ordered Rate/Order Duration: -- / -- Timestamps Action Dose Route Other Information 05/19/242232 Given 50 mg oral Performed by: Mandie Holly RN Scanned Package: 92150-487-66, 00592-223-26 HYDROmorphone (DILAUDID) tablet 2 mg [[id number]] Ordering Provider: Spike Tidwell MD Status: Dispensed Ordered On: 05/19/242216 Start: 05/19/242216 Ordered Dose (Remaining/Total): 2 mg (--/--) Route: oral Frequency: Every 4 hours PRN Ordered Rate/Order Duration: -- / -- Timestamps Action Dose Route Other Information 05/19/24 2329 Given 2 mg oral Performed by: Mandie Holly RN Scanned Package: 9194-8797-29 , Wound Info Only Active Wound Assessment [...] 05/19/24 0700 - 05/20/24 0659 Total Total 2794-3847 1354-8556 6912-8619 Total Intake (ml) 10 220 -- 100 -- 100 Output (ml) 1675 1050 375 125 100 600 Net (ml) -1665 -830 -375 -25 -100 -500 ASSORTER * ECIN Note - Yvette Fan RN [...] Equipment-Currently Using -- None -CP Level of [place] -- Independent with ADLs;Independent functional transfers;Independent with [...] Equipment-Currently Using -- None -MR Level of [place] -- Independent functional transfers;Independent with ambulation;Needs assistance with ADLs -MR Receives Help From -- Facility staff;Family -MR Driving -- No -MR Vocational/Occupation -- Retired -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 [facility] Ger[facility] Initial Geriatric Assessment Note [...] Frailty level +/-: frail >0.25 (positive) (05/17/24 1275) Delirium prevention: The patient does not wear [...] Contact: DANDY CUELLAR Relation: Daughter Preferred language: Rwandan Teacher'S Assistant needed? No Secondary Emergency Contact: Torrey Navarro [facility] [place] Relation: Son Primary care provider identified? [...] Section of Acute and Critical Care Surgery ASSORTER * Plan of Care - Jannette Reeves RN - 05/19/2024 1:30 PM CST 05/16/24 [facility] Discharge Planning Support System Children (geraldo Cuellar [phone]) Anticipated discharge level of care care home facility (short term care) Does the patient [...] as an unwitnessed Ground [facility] fall at jail sustaining right pubic ramus fracture ADD: 05/20 Discharge Barriers: requiring 1:1 sitter due to dementia and agitation, restarted home Ativan. Patient will need to be sitter free x 24 hour prior to discharge to SNF, nursing/primary team aware. Referrals: Patient A&O x 1 at baseline, CM spoke to geraldo Cuellar [phone] re discharge planning again on 05/18. Dandy now interested in [facility] [phone] - electronic referral sent on 05/18 - CM spoke to Awilda in admissions at [facility] - per Awilda still awaiting determination as of this time If [facility] unable to accept - [phone] (Betty antoinette [phone]) that patient will be able to return upon discharge Education Needs Identified (plan): TBD F/U Appointments: to be arranged per primary team Addendum as of 233 - [facility] unable to accept for admission. Patient to return to [facility] upon discharge. CM updated geraldo Cuellar [phone] Patient's Identified Problem/Goal Problem:?Ensure acute medical needs are met and that patient has a safe discharge plan. Goal:?Secure a discharge plan that patient/family are agreeable with?and ensure patient has continuum of care. Patient and/or family are agreeable with plan. biodiesel operations manager will continue to follow and assist with discharge planning as needed. If any further discharge needs arise, please contact the covering case packer. ASSORTER ASSORTER * Plan of Care - Maria C Aguirre RN - 05/19/2024 9:45 AM LENS ASSORTER Problem: Restraint for Interference with Medical Safety [...] for the Shift: monitor closely Summary: progressing ASSORTER * Plan of Care - Fe Bhatti RN - 05/19/2024 5:45 AM CST Goals: Clinical Goals for the Shift: VS stable, promote rest Summary: Unable to collect vital signs intermittently overnight due to patient agitation/confusion and refusal. VS stable and pt presented no signs of acute VS changes overnight. Rest promoted by [facility] care. Pt restless and confused [...] Implement dietary regimen as ordered Outcome: Progressing ASSORTER * Plan of Care - Adonis Marion [...] in bed, difficult to redirect patient. Falguni FOOD AND BEVERAGE ORDER CLERK at bedside to assess, one time dose of Zyprexa given and prn pain medication administered. roof bolter remained atbedside. Patient care handoff completed. ASSORTER * Plan of Care - Jannette Reeves RN - 05/18/2024 9:08 AM CST 05/16/24 [facility] Discharge Planning Support System Children (geraldo Cuellar [phone]) Anticipated discharge level of care care home facility (short term care) Does the patient [...] as an unwitnessed Ground level fall at jail sustaining right pubic ramus fracture ADD: 05/19 Discharge Barriers: patient had sitter/restraints in place yesterday. Will need to be sitter/restraint free x 24 hours prior discharge to facility Referrals: Patient A&O x 1 at baseline, CM spoke to geraldo Cuellar [phone] re discharge planning again on 05/18. Dandy now interested in [facility] [phone] - electronic referral sent on 05/18 - awaiting response Education Needs Identified (plan): TBD F/U Appointments: to be arranged per primary team Update as of 1308 - CM spoke to Awilda in admissions at [facility] [phone] - referral still under review at this time. Awilda to follow up with case management Patient's Identified Problem/Goal Problem:?Ensure acute medical needs are met and that patient has a safe discharge plan. Goal:?Secure a discharge plan that patient/family are agreeable with?and ensure patient has continuum of care. Patient and/or family are agreeable with plan. biodiesel operations manager will continue to follow and assist with discharge planning as needed. If any further discharge needs arise, please contact the covering case packer. ASSORTER ASSORTER ASSORTER * ECIN Note - Jannette Reeves RN - 05/18/2024 8:59 AM CST Images from the original note were not included. Patient Information: Head to Toe Assess Default Flowsheet Data (most recent) Complex Assessment - 05/18/24 06 Urine Assessment Urine Color Yellow/straw Urine Appearance Clear Urine Odor Unable to assess , Meds and Admin Active Only All Meds/Most Recent Administrations morphine injection 2 mg [[id number]] Ordering Provider: Alexis Sawyer MD Status: Completed [...] Performed by: Sarina Chavira RN Scanned Package: 0430-9573-60 haloperidol (HALDOL) injection 5 mg [[id number]] Ordering Provider: Alexis Sawyer MD Status: Completed (Past End Date/Time) Ordered On: 05/14/2431 Starts/Ends: 05/14/2432 - 05/14/2432 Ordered Dose (Remaining/Total): 5 mg (0/1) Route: intravenous Frequency: Once Ordered Rate/Order Duration: -- / -- Admin Instructions: If administered IV push, administer over 5 min for adults Line Med Link Info Comment Peripheral IV 05/14/24 22 G Left;Posterior Hand 05/14/24631 by Sarina Chaviar RN -- Timestamps Action Dose Route Other Information 05/14/24631 Given 5 mg intravenous Performed by: Sarina Chavira RN Scanned Package: 43984-352-96 ketorolac (TORADOL) 15 mg/mL injection 15 mg [[id number]] Ordering Provider: Alexis Sawyer MD Status: Completed [...] Performed by: Sarina Chavira RN Scanned Package: 33615-720-56 vancomycin 1500 mg/515 mL in sodium chloride 0.9% (premix) 1,500 mg [[id number]] Ordering Provider: Frandy Ferreira MD Status: Completed [...] Performed by: Sarina Chavira RN Scanned Package: 7791-4129-29 haloperidol (HALDOL) injection 5 mg [[id number]] Ordering Provider: Frandy Ferreira MD Status: Completed [...] Performed by: Denise Mendez RN Scanned Package: 24309-860-25 fentaNYL (SUBLIMAZE) preservative free injection 50 mcg [[id number]] Ordering Provider: Frandy Ferreira MD Status: Completed [...] Performed by: Denise Mendez RN Scanned Package: 5055-2356-76 amLODIPine (NORVASC) tablet 10 mg [[id number]] Ordering Provider: Vikash Servin MD Status: Dispensed Ordered On: 05/14/241757 Start: 05/14/241829 Ordered Dose (Remaining/Total): 10 mg (--/--) Route: oral Frequency: Daily Ordered Rate/Order Duration: -- / -- Timestamps Action Dose Route Other Information 05/17/24 0852 Given 10 mg oral Performed by: Jen Li RN Scanned Package: 65715-709-55 atorvastatin (LIPITOR) tablet 10 mg [[id number]] Ordering Provider: Vikash Servin MD Status: Dispensed Ordered On: 05/14/241757 Start: 05/14/241829 Ordered Dose (Remaining/Total): 10 mg (--/--) Route: oral Frequency: Daily Ordered Rate/Order Duration: -- / -- Timestamps Action Dose Route Other Information 05/17/24 0853 Given 10 mg oral Performed by: Jen Li RN Scanned Package: 00136-768-86 citalopram (CeleXA) tablet 20 mg [[id number]] Ordering Provider: Vikash Servin MD Status: Dispensed Ordered On: 05/14/241757 Start: 05/14/241829 Ordered Dose (Remaining/Total): 20 mg (--/--) Route: oral Frequency: Daily Ordered Rate/Order Duration: -- / -- Timestamps Action Dose Route Other Information 05/17/2453 Given 20 mg oral Performed by: Jen Li RN Scanned Package: 3911-2459-64 docusate sodium (COLACE) capsule 100 mg [[id number]] Ordering Provider: Vikash Servin MD Status: Dispensed Ordered On: 05/14/241757 Start: 05/14/242099 Ordered Dose (Remaining/Total): 100 mg (--/--) Route: oral Frequency: 2 times daily Ordered Rate/Order Duration: -- / -- Timestamps Action Dose Route Other Information 05/17/242099 Given 100 mg oral Performed by: Fe Bhatti RN Scanned Package: 71676-736-[address] (PROTONIX) extended release tablet 40 mg [[id number]] Ordering Provider: Vikash Servin MD Status: Dispensed Ordered On: 05/14/241757 Start: 05/14/241829 Ordered Dose (Remaining/Total): 40 mg (--/--) Route: oral Frequency: Daily Ordered Rate/Order Duration: -- / -- Admin Instructions: Do not crush, chew, cut, dissolve, open or otherwise manipulate tablet/capsule. Timestamps Action Dose Route Other Information 05/17/24854 Given 40 mg oral Performed by: Jen Li RN Scanned Package: 37976-632-89 QUEtiapine (SEROquel) tablet 50 mg [[id number]] Ordering Provider: Vikash Servin MD Status: Dispensed Ordered On: 05/14/241757 Start: 05/14/242099 Ordered Dose (Remaining/Total): 50 mg (--/--) Route: oral Frequency: Nightly Ordered Rate/Order Duration: -- / -- Timestamps Action Dose Route Other Information 05/17/242099 Given 50 mg oral Performed by: Fe Bhatti RN Scanned Package: 50914-626-61, 82182-970-91 senna-docusate (PERICOLACE) 8.6-50 mg per tablet 1 tablet [[id number]] Ordering Provider: Vikash Servin MD Status: Dispensed Ordered On: 05/14/241757 Start: 05/14/242099 Ordered Dose (Remaining/Total): 1 tablet (--/--) Route: oral Frequency: 2 times daily Ordered Rate/Order Duration: -- / -- Admin Instructions: Hold for diarrhea. Timestamps Action Dose Route Other Information 05/17/242099 Given 1 tablet oral Performed by: Fe Bhatti RN Scanned Package: 1731-9476-26 HYDROmorphone (DILAUDID) injection 0.5 mg [[id number]] Ordering Provider: Frandy Ferreira MD Status: Completed [...] Performed by: Denise Mendez RN Scanned Package: 2366-4148-61 haloperidol (HALDOL) injection 5 mg [[id number]] Ordering Provider: Berto Olivas MD Status: Completed [...] fentaNYL (SUBLIMAZE) preservative free injection 50 mcg [[id number]] Ordering Provider: Frandy Ferreira MD Status: Completed [...] Performed by: Denise Mendez RN Scanned Package: 9574-3986-86 haloperidol (HALDOL) injection 2.5 mg [[id number]] Ordering Provider: Berto Olivas MD Status: Completed [...] Performed by: Denise Mendez RN Scanned Package: 30665-059-21 levothyroxine (SYNTHROID) tablet 137 mcg [[id number]] Ordering Provider: Spike Tidwell MD Status: Dispensed [...] Performed by: Fe Bhatti RN Scanned Package: 26213-431-43 sodium chloride 0.9% bolus 500 mL [[id number]] Ordering Provider: Spike Tidwell MD Status: Completed (Past End Date/Time) Ordered On: 05/14/242251 Starts/Ends: 05/14/242329 - 05/14/242313 Ordered Dose (Remaining/Total): 500 mL (0/1) Route: intravenous Frequency: Once Ordered Rate/Order Duration: -- / -- Timestamps Action Dose Route Other Information 05/14/242313 New Bag 500 mL intravenous Performed by: Nataliya Saxena RN Scanned Package: 6582-9245-39 dextrose gel in packet 15 g [[id number]] Ordering Provider: Spike Tidwell MD Status: Verified [...] medication) dextrose (D10W) 10% bolus 250 mL [[id number]] Ordering Provider: Spike Tidwell MD Status: Verified [...] hour post treatment. If BG is less [id number] mg/dL, repeat Q15 minute BG checks and treatment. Call MD for each episode of hypoglycemia. (No admins scheduled or recorded for this medication) glucagon injection 1 mg [[id number]] Ordering Provider: Spike Tidwell MD Status: Verified [...] (HumaLOG, ADMELOG) 100 unit/mL injection 0-5 Units [[id number]] Ordering Provider: Spike Tidwell MD Status: Dispensed [...] Performed by: Jen Li RN Scanned Package: [id number] insulin lispro (HumaLOG, ADMELOG) 100 unit/mL injection 0-4 Units [[id number]] Ordering Provider: Spike Tidwell MD Status: Dispensed [...] this medication) QUEtiapine (SEROquel) tablet 25 mg [[id number]] Ordering Provider: Cain Demarco MD Status: Completed (Past End Date/Time) Ordered On: 05/15/24 1400 Starts/Ends: 05/15/24 1445 - 05/15/24 1448 Ordered Dose (Remaining/Total): 25 mg (0/1) Route: oral Frequency: Once Ordered Rate/Order Duration: -- / -- Timestamps Action Dose Route Other Information 05/15/24 1448 Given 25 mg oral Performed by: Betsy Hernandez Scanned Package: 05693-193-36 lidocaine (ASPERCREME) 4 % patch 1 patch [[id number]] Ordering Provider: Cain Demarco MD Status: Dispensed [...] Li RN Comments: r thigh Scanned Package: 0732-8327-89 oxyCODONE (ROXICODONE) tablet 5 mg [[id number]] Ordering Provider: Spike Tidwell MD Status: Dispensed Ordered On: 05/15/241912 Start: 05/15/241912 Ordered Dose (Remaining/Total): 5 mg (--/--) Route: oral Frequency: Every 4 hours PRN Ordered Rate/Order Duration: -- / -- Timestamps Action Dose Route Other Information 05/18/24 0551 Given 5 mg oral Performed by: Fe Bhatti RN Scanned Package: 88784-360-80 HYDROmorphone (DILAUDID) injection 0.2 mg [[id number]] Ordering Provider: Spike Tidwell MD Status: Completed (Past End Date/Time) Ordered On: 05/16/24 0057 Starts/Ends: 05/16/24 0130 - 05/16/24 0102 Ordered Dose (Remaining/Total): 0.2 mg (0/1) Route: intravenous Frequency: Once Ordered Rate/Order Duration: -- / 2 Minutes Timestamps Action Dose / Duration Route Other Information 05/16/24 0100 Given 0.2 mg 2 Minutes intravenous Performed by: Cuca Thakur RN Scanned Package: 3155-9536-43 sodium zirconium cyclosilicate (LOKELMA) packet 5 g [[id number]] Ordering Provider: Spike Tidwell MD Status: Completed [...] Performed by: Juanita Weems RN Scanned Package: 4303-6558-32 HYDROmorphone (DILAUDID) injection 0.2 mg [[id number]] Ordering Provider: Amador Nj MD Status: Completed (Past End Date/Time) Ordered On: 05/16/24843 Starts/Ends: 05/16/24 0915 - 05/16/24 0910 Ordered Dose (Remaining/Total): 0.2 mg (0/1) Route: intravenous Frequency: Once Ordered Rate/Order Duration: -- / 2 Minutes Timestamps Action Dose / Duration Route Other Information 05/16/24 0908 Given 0.2 mg 2 Minutes intravenous Performed by: Juanita Weems RN Scanned Package: 2563-8894-92 acetaminophen (TYLENOL) tablet 1,000 mg [[id number]] Ordering Provider: Falguni Galvez NP Status: Dispensed Ordered On: 05/16/24843 Start: 05/16/24 1200 Ordered Dose (Remaining/Total): 1,000 mg (--/--) Route: oral Frequency: Every 6 hours scheduled Ordered Rate/Order Duration: -- / -- Timestamps Action Dose Route Other Information 05/18/24 0552 Given 1,000 mg oral Performed by: Fe Bhatti RN Scanned Package: 4504-6554-02, 3128-1455-27 methocarbamoL (ROBAXIN) tablet 500 mg [[id number]] Ordering Provider: Falguni Galvez NP Status: Dispensed Ordered On: 05/16/24 0844 Start: 05/16/24 0915 Ordered Dose (Remaining/Total): 500 mg (--/--) Route: oral Frequency: 3 times daily Ordered Rate/Order Duration: -- / -- Timestamps Action Dose Route Other Information 05/17/24 2100 Given 500 mg oral Performed by: Fe Bhatti RN Scanned Package: 17449-815-22 ketorolac (TORADOL) 15 mg/mL injection 15 mg [[id number]] Ordering Provider: Falguni Galvez NP Status: Completed [...] Given 15 mg intravenous Performed by: Jen iL RN Scanned Package: 41664-603-97 sodium chloride 0.9% bolus 500 mL [[id number]] Ordering Provider: Spike Tidwell MD Status: Completed [...] Performed by: Nataliya Saxena RN Scanned Package: 5561-0241-74 OLANZapine (ZyPREXA) 5 mg in sterile water 1 mL (5 mg/mL) syringe [[id number]] Ordering Provider: Spike Tidwell MD Status: Completed [...] Performed by: Nataliya Saxena RN Scanned Package: 8068-8340-48, 1539-3105-32 OLANZapine (ZyPREXA) 2.5 mg in sterile water 0.5 mL (5 mg/mL) syringe [[id number]] Ordering Provider: Spike Tidwell MD Status: Completed [...] Performed by: Nataliya Saxena RN Scanned Package: 81694-263-62, 88461-002-55, 4143-2553-73, 3747-4909-49, 5749-5048-75 heparin 5,000 unit/mL injection 5,000 Units [[id number]] Ordering Provider: Falguni Galvez NP Status: Dispensed Ordered On: 05/17/24 1023 Start: 05/17/24 2100 Ordered Dose (Remaining/Total): 5,000 Units (--/--) Route: subcutaneous Frequency: Every 8 hours scheduled Ordered Rate/Order Duration: -- / -- Timestamps Action Dose Route / Site Other Information 05/18/24 0552 Given 5,000 Units subcutaneous Left Upper Arm Performed by: Fe Bhatti RN Scanned Package: 19504-416-70 cephalexin (KEFLEX) capsule 250 mg [[id number]] Ordering Provider: Falguni Galvez NP Status: Dispensed Ordered On: 05/17/24 1025 Starts/Ends: 05/17/24 1400 - 05/22/24 1559 Ordered Dose (Remaining/Total): 250 mg () Route: oral Frequency: 3 times daily Ordered Rate/Order Duration: -- / -- Timestamps Action Dose Route Other Information 05/17/242099 Given 250 mg oral Performed by: Fe Bhatti RN Scanned Package: 52494-686-89 sodium chloride 0.9% flush 0.5-20 mL [[id number]] Ordering Provider: Spike Tidwell MD Status: Verified Ordered On: 05/17/242116 Start: 05/18/24 0000 Ordered Dose (Remaining/Total): 0.5-20 mL (--/--) Route: intra-catheter Frequency: Every 8 hours scheduled (alternate) Ordered Rate/Order Duration: -- / -- Admin Instructions: Flush volume based on line type and size. (No admins scheduled or recorded for this medication) sodium chloride 0.9% flush 0.5-20 mL [[id number]] Ordering Provider: Spike Tidwell MD Status: Verified Ordered On: 05/17/242116 Start: 05/17/242116 Ordered Dose (Remaining/Total): 0.5-20 mL (--/--) Route: intra-catheter Frequency: As needed Ordered Rate/Order Duration: -- / -- Admin Instructions: Flush volume based on line type and size. Flush before and after each use. (No admins scheduled or recorded for this medication) Carrier Fluids for Secondary Infusion - 0.9% Sodium Chloride [[id number]] Ordering Provider: Spike Tidwell MD Status: Verified [...] this medication) HYDROmorphone (DILAUDID) injection 0.2 mg [[id number]] Ordering Provider: Spike Tidwell MD Status: Completed (Past End Date/Time) Ordered On: 05/17/242116 Starts/Ends: 05/17/242199 - 05/17/242143 Ordered Dose (Remaining/Total): 0.2 mg () Route: intravenous Frequency: Once Ordered Rate/Order Duration: -- / 2 Minutes Timestamps Action Dose / Duration Route Other Information 05/17/242141 Given 0.2 mg 2 Minutes intravenous Performed by: Marjan Pritchett RN Scanned Package: 42174-886-61 bisacodyL (DULCOLAX) suppository 10 mg [[id number]] Ordering Provider: Falguni Galvez NP Status: Verified Ordered On: 05/18/24653 Starts/Ends: 05/18/24729 - 05/19/24729 Ordered Dose (Remaining/Total): 10 mg (06/08) Route: rectal Frequency: Once Ordered Rate/Order Duration: -- / -- (No admins scheduled or recorded for this medication) polyethylene glycol (MIRALAX) packet 17 g [[id number]] Ordering Provider: Falguni Galvez NP Status: Verified Ordered On: 05/18/24653 Start: 05/18/24 09 Ordered Dose (Remaining/Total): 17 g (--/--) Route: oral Frequency: Daily Ordered Rate/Order Duration: -- / -- (No admins scheduled or recorded for this medication) aspirin enteric coated tablet 81 mg [[id number]] Ordering Provider: Falguni Galvez NP Status: Verified [...] Equipment-Currently Using -- None -CP Level of [place] -- Independent with ADLs;Independent functional transfers;Independent with [...] Mobility Equipment-Currently Using None -MR Level of [place] Independent functional transfers;Independent with ambulation;Needs assistancewith ADLs -MR Receives Help From Facility staff;Family -MR Driving No -MR Vocational/Occupation 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 -MR Fall within the last 6 [...] home and community mobility -MR PT Recommendation/Plan Block Inspector Care Return to facility with PT intervention [...] 168 Hours) PT Treatment Row Name 05/17/24 0937 PT Last Visit Session Type Treatment -MR Safe Environment Arm band checked;Gait belt not utilized, see comment -MR Subjective Agreeable to Therapy -MR Family/Caregiver Present No -MR Precautions Precautions Fall risk -MR Weight Bearing Restrictions Yes -MR RLE Weight Bearing WBAT -MR Precaution Handout Issued No -MR Activity Tolerance Activity Tolerance Comments Ejss: unable -MR Pain Assessment Pain Assessment No/denies [...] the discharge summary -MR Recommendation/Plan PT Recommendation/Plan Halfway Care Return to facility with PT intervention [...] % 95 % 86 % 96 % ASSORTER * Assessment & Plan Note - Falguni Galvez NP - 05/18/2024 7:49 AM LENS ASSORTER Associated Problem(s): Urinary retention 05/16 removed Briscoe- void check 05/17 noted agitation per nursing, and frequent incontinence, Bladder Scan 650 mL, Briscoe catheter placed ASSORTER ASSORTER * Plan of Care - Fe Bhatti [...] PRN and scheduled meds administered. Rest promotedby [facility] care. Pt resting in bed [...] decrease the patient's pain levels Outcome: Progressing ASSORTER * Plan of Care - Jannette Reeves RN - 05/17/2024 11:16 AM CST 05/16/24 [facility] Discharge Planning Support System Children (daughter Dandy Cuellar [phone]) Anticipated discharge level of care prison (termite control service representative care) Does the patient need discharge transport arranged? Yes Type of Transportation Ambulance/EMS Post Acute Care Plan Home Care Services N/A OP Services N/A DME N/A Post Acute Care Facility Resume Post Acute Facility Name and Contact [facility] [phone] TAMMY Progression of Care Update Per Medical Chart/Rounds/IDR: 83 y.o. year old female PMH of Alzheimer's Dementia, diabetes mellitus type 2, hypertension, dementia, presenting as an unwitnessed Ground [facility] fall at jail sustaining right pubic ramus fracture ADD: 05/18 Discharge Barriers: pending thuy rogel at bedside 05/17 [address] [phone] fax # [phone] - patient is a [facility] resident at this SNF. CM spoke to [...] Patient and/or family are agreeable with plan. biodiesel operations manager will continue to follow and assist with discharge planning as needed. If any further discharge needs arise, please contact the covering case packer. ASSORTER ASSORTER * Assessment & Plan Note - Falguni Galvez NP - 05/17/2024 10:26 AM LENS ASSORTER Associated Problem(s): UTI (urinary tract infection) 05/14 UA sent on admission, refluxed to CX 05/17 changed Cefepime to Keflex PO x 5 days (05/17-05/22) CX: 05/14 UCX: Klebsiella Pneumoniae ABX: Cefepime (05/14-05/17) Keflex (05/17-05/22) ASSORTER ASSORTER ASSORTER * Plan of Care - Jen Li [...] free from injury from falls Outcome: Progressing ASSORTER * Initial Assessments - Jannette Reeves RN - 05/16/2024 10:24 AM CST CM Initial Assessment Interview Note Information Obtained From: Adult child Name: daughter aDndy Cuellar [phone] (patient A&O x 1 at baseline) (05/16/24 1016) Admission Source: transfer from [facility] Impression: 83 y.o. year old female PMH of Alzheimer's Dementia, diabetes mellitus type 2, hypertension, dementia, presenting as an unwitnessed Ground level fall at jail sustaining right pubic ramus fracture Plan Includes: Discharge when medically stable. Anticipate return to SNF when medically stable. Case management will continue to follow for medical updates and discharge planning. Primary Source of Transportation: Does the patient need discharge transport arranged?: Yes (05/16/24 1016) Health Insurance Coverage: Medicare, IDPA Prescription Coverage: yes Pharmacy: [facility] [place], [place] - [facility] [address] [facility] [address] [facility] - [place], [place] - [address] [place] [address] [address] [address] Primary Care Provider: Cedric Nguyen MD Prior to Admission: Functional Status: Moderate assist with ADLs Primary Caregiver: Facility staff Support System: Children (geraldo Cuellar [phone]) Home Care Services: No Outpatient Services: No Durable Medical Equipment: None Living Arrangements: prison Type of Residence: prison Does patient wish to return to care facility?: Yes, wishes to return Facility contact name and number:: [facility] [phone] (05/16/24 1016) Potential discharge needs include: Patient is a [facility] resident at [phone] - per geraldo Sanchez will return to facility upon discharge. Electronic referral sent to [facility] for return to SNF on 05/16. OP Services: No Dialysis: No Behavioral Health Services: Behavioral Health Services: No (05/16/24 1016) Anticipated Level of Care: Anticipated discharge level of care: prison (termite control service representative care) Pt/Family agrees with Anticipated Level of Care: Yes (05/16/24 1016) Patient expects to be Discharged to: prison ([facility] care), (05/16/24 1016) Additional Information: Demographics verified with facesheet. Explained role of CM. Patient residesat [place] [phone] - has been at this facility for [...] Collaboration with Patient, Provider, Direct Care Nurse, Sleever, and other members of theHealth Care Team to assure needed interventions completed. 2. Return patient to optimal level of self-care post discharge. 3. Orchard Worker will follow for Discharge Planning - interventions as needed 4. Anticipated level of care at discharge 5. Planned Discharge Disposition Jannette Reeves RN ASSORTER * ECIN Note - Jannette Reeves RN - 05/16/2024 10:14 AM CST Images from the original note were not included. Patient Information: Head to Toe Assess Default Flowsheet Data (most recent) Complex Assessment - 05/16/24 0908 Sedation Scales Pasero Opioid-Induced Sedation Scale (POSS) 1 , Meds and Admin Active Only All Meds/Most Recent Administrations morphine injection 2 mg [[id number]] Ordering Provider: Alexis Sawyer MD Status: Completed [...] Performed by: Sarina Chavira RN Scanned Package: 5304-2388-80 haloperidol (HALDOL) injection 5 mg [[id number]] Ordering Provider: Alexis Sawyer MD Status: Completed [...] Performed by: Sarina Chavira RN Scanned Package: 22510-723-98 ketorolac (TORADOL) 15 mg/mL injection 15 mg [[id number]] Ordering Provider: Alexis Sawyer MD Status: Completed [...] Performed by: Sarina Chavira RN Scanned Package: 12597-233-05 cefepime (MAXIPIME) 2,000 mg/20 mL in sterile water (premix) 2,000 mg [[id number]] Ordering Provider: Vikash Servin MD Status: Dispensed Ordered On: 05/14/24749 Start: 05/14/24750 Ordered Dose (Remaining/Total): 2,000 mg (--/--) Route: intravenous Frequency: Every 12 hours scheduled Ordered Rate/Order Duration: 240 mL/hr / 5 Minutes Line Med Link Info Comment Peripheral IV 05/14/24 22 G Right Hand 05/14/24800 by Sarina Chavira RN -- Timestamps Action Dose / Rate / Duration Route Other Information 05/16/24 0828 New Bag 2,000 mg 240 mL/hr 5 Minutes intravenous Performed by: Juanita Weems RN Scanned Package: [address]-0 vancomycin 1500 mg/515 mL in sodium chloride 0.9% (premix) 1,500 mg [[id number]] Ordering Provider: Frandy Ferreira MD Status: Completed [...] Performed by: Sarina Chavira RN Scanned Package: 3289-7725-25 haloperidol (HALDOL) injection 5 mg [[id number]] Ordering Provider: Frandy Ferreira MD Status: Completed [...] Performed by: Denise Mendez RN Scanned Package: 07305-368-53 fentaNYL (SUBLIMAZE) preservative free injection 50 mcg [[id number]] Ordering Provider: Frandy Ferreira MD Status: Completed [...] Performed by: Denise Mendez RN Scanned Package: 9990-1665-09 amLODIPine (NORVASC) tablet 10 mg [[id number]] Ordering Provider: Vikash Servin MD Status: Dispensed Ordered On: 05/14/241757 Start: 05/14/241829 Ordered Dose (Remaining/Total): 10 mg (--/--) Route: oral Frequency: Daily Ordered Rate/Order Duration: -- / -- Timestamps Action Dose Route Other Information 05/16/24931 Given 10 mg oral Performed by: Juanita Weems RN atorvastatin (LIPITOR) tablet 10 mg [[id number]] Ordering Provider: Vikash Servin MD Status: Dispensed Ordered On: 05/14/241757 Start: 05/14/241829 Ordered Dose (Remaining/Total): 10 mg (--/--) Route: oral Frequency: Daily Ordered Rate/Order Duration: -- / -- Timestamps Action Dose Route Other Information 05/16/24931 Given 10 mg oral Performed by: Juanita Weems RN citalopram (CeleXA) tablet 20 mg [[id number]] Ordering Provider: Vikash Servin MD Status: Dispensed Ordered On: 05/14/241757 Start: 05/14/241829 Ordered Dose (Remaining/Total): 20 mg (--/--) Route: oral Frequency: Daily Ordered Rate/Order Duration: -- / -- Timestamps Action Dose Route Other Information 05/16/24931 Given 20 mg oral Performed by: Juanita Weems RN docusate sodium (COLACE) capsule 100 mg [[id number]] Ordering Provider: Vikash Servin MD Status: Dispensed Ordered On: 05/14/241757 Start: 05/14/242099 Ordered Dose (Remaining/Total): 100 mg (--/--) Route: oral Frequency: 2 times daily Ordered Rate/Order Duration: -- / -- Timestamps Action Dose Route Other Information 05/16/24931 Given 100 mg oral Performed by: Juanita Weems RN pantoprazole DR (PROTONIX) extended release tablet 40 mg [[id number]] Ordering Provider: Vikash Servin MD Status: Dispensed Ordered On: 05/14/241757 Start: 05/14/241829 Ordered Dose (Remaining/Total): 40 mg (--/--) Route: oral Frequency: Daily Ordered Rate/Order Duration: -- / -- Admin Instructions: Do not crush, chew, cut, dissolve, open or otherwise manipulate tablet/capsule. Timestamps Action Dose Route Other Information 05/16/24 0932 Given 40 mg oral Performed by: Juanita Weems RN QUEtiapine (SEROquel) tablet 50 mg [[id number]] Ordering Provider: Vikash Servin MD Status: Dispensed Ordered On: 05/14/241757 Start: 05/14/242099 Ordered Dose (Remaining/Total): 50 mg (--/--) Route: oral Frequency: Nightly Ordered Rate/Order Duration: -- / -- Timestamps Action Dose Route Other Information 05/15/242117 Given 25 mg oral Performed by: Cuca Thakur RN Comments: pt spit 25mg pill on floor Scanned Package: 45991-148-81 enoxaparin (LOVENOX) syringe 30 mg [[id number]] Ordering Provider: Vikash Servin MD Status: Dispensed Ordered On: 05/14/241757 Start: 05/14/242099 Ordered Dose (Remaining/Total): 30 mg (--/--) Route: subcutaneous Frequency: Every 12 hours scheduled Ordered Rate/Order Duration: -- / -- Timestamps Action Dose Route / Site Other Information 05/16/24827 Given 30 mg subcutaneous Left Lower Abdomen Performed by: Juanita Weems RN Scanned Package: 52798-350-83 sodium chloride 0.9% flush 0.5-20 mL [[id number]] Ordering Provider: Vikash Servin MD Status: Verified Ordered On: 05/14/241757 Start: 05/14/241829 Ordered Dose (Remaining/Total): 0.5-20 mL (--/--) Route: intra-catheter Frequency: Every 8 hours scheduled (alternate) Ordered Rate/Order Duration: -- / -- Admin Instructions: Flush volume based on line type and size. Timestamps Action Dose Route Other Information 05/16/24 0829 Given 10 mL intra-catheter Performed by: Juanita Weems RN Scanned Package: [id number] sodium chloride 0.9% flush 0.5-20 mL [[id number]] Ordering Provider: Vikash Servin MD Status: Verified Ordered On: 05/14/241757 Start: 05/14/241757 Ordered Dose (Remaining/Total): 0.5-20 mL (--/--) Route: intra-catheter Frequency: As needed Ordered Rate/Order Duration: -- / -- Admin Instructions: Flush volume based on line type and size. Flush before and after each use. (No admins scheduled or recorded for this medication) Carrier Fluids for Secondary Infusion - 0.9% Sodium Chloride [[id number]] Ordering Provider: Vikash Servin MD Status: Verified [...] (PERICOLACE) 8.6-50 mg per tablet 1 tablet [[id number]] Ordering Provider: Vikash Servin MD Status: Dispensed Ordered On: 05/14/241757 Start: 05/14/242099 Ordered Dose (Remaining/Total): 1 tablet (--/--) Route: oral Frequency: 2 times daily Ordered Rate/Order Duration: -- / -- Admin Instructions: Hold for diarrhea. Timestamps Action Dose Route Other Information 05/16/24 0932 Given 1 tablet oral Performed by: Juanita Weems, KHLOE HYDROmorphone (DILAUDID) injection 0.5 mg [[id number]] Ordering Provider: Frandy Ferreira MD Status: Completed [...] Performed by: Denise Mendez RN Scanned Package: 0787-4330-56 haloperidol (HALDOL) injection 5 mg [[id number]] Ordering Provider: Berto Olivas MD Status: Completed [...] fentaNYL (SUBLIMAZE) preservative free injection 50 mcg [[id number]] Ordering Provider: Frandy Ferreira MD Status: Completed [...] Performed by: Denise Mendez RN Scanned Package: 0683-3208-56 haloperidol (HALDOL) injection 2.5 mg [[id number]] Ordering Provider: Berto Olivas MD Status: Completed [...] Performed by: Denise Mendez RN Scanned Package: 19900-282-31 levothyroxine (SYNTHROID) tablet 137 mcg [[id number]] Ordering Provider: Spike Tidwell MD Status: Dispensed [...] Performed by: Cuca Thakur RN Scanned Package: 59949-295-62 sodium chloride 0.9% bolus 500 mL [[id number]] Ordering Provider: Spike Tidwell MD Status: Completed (Past End Date/Time) Ordered On: 05/14/242251 Starts/Ends: 05/14/242329 - 05/14/242313 Ordered Dose (Remaining/Total): 500 mL (0/1) Route: intravenous Frequency: Once Ordered Rate/Order Duration: -- / -- Timestamps Action Dose Route Other Information 05/14/242313 New Bag 500 mL intravenous Performed by: Nataliya Saxena RN Scanned Package: 3298-1041-54 dextrose gel in packet 15 g [[id number]] Ordering Provider: Spike Tidwell MD Status: Verified [...] medication) dextrose (D10W) 10% bolus 250 mL [[id number]] Ordering Provider: Spike Tidwell MD Status: Verified [...] hour post treatment. If BG is less sclu982 mg/dL, repeat Q15 minute BG checks and treatment. Call MD for each episode of hypoglycemia. (No admins scheduled or recorded for this medication) glucagon injection 1 mg [[id number]] Ordering Provider: Spike Tidwell MD Status: Verified [...] (HumaLOG, ADMELOG) 100 unit/mL injection 0-5 Units [[id number]] Ordering Provider: Spike Tidwell MD Status: Dispensed [...] Abdomen Performed by: Betsy Hernandez Scanned Package: [id number] insulin lispro (HumaLOG, ADMELOG) 100 unit/mL injection 0-4 Units [[id number]] Ordering Provider: Spike Tidwell MD Status: Verified [...] this medication) QUEtiapine (SEROquel) tablet 25 mg [[id number]] Ordering Provider: Cain Demarco MD Status: Completed (Past End Date/Time) Ordered On: 05/15/24 1400 Starts/Ends: 05/15/24 1445 - 05/15/24 1448 Ordered Dose (Remaining/Total): 25 mg (0/1) Route: oral Frequency: Once Ordered Rate/Order Duration: -- / -- Timestamps Action Dose Route Other Information 05/15/24 1448 Given 25 mg oral Performed by: Betsy Hernandez Scanned Package: [id number] lidocaine (ASPERCREME) 4 % patch 1 patch [[id number]] Ordering Provider: Cain Demarco MD Status: Dispensed [...] Back Performed by: Betsy Hernandez Scanned Package: 1181-0117-28 oxyCODONE (ROXICODONE) tablet 5 mg [[id number]] Ordering Provider: Spike Tidwell MD Status: Dispensed Ordered On: 05/15/241912 Start: 05/15/241912 Ordered Dose (Remaining/Total): 5 mg (--/--) Route: oral Frequency: Every 4 hours PRN Ordered Rate/Order Duration: -- / -- Timestamps Action Dose Route Other Information 05/16/24 0410 Given 5 mg oral Performed by: Cuca Thakur RN Scanned Package: [id number] HYDROmorphone (DILAUDID) injection 0.2 mg [[id number]] Ordering Provider: Spike Tidwell MD Status: Completed (Past End Date/Time) Ordered On: 05/16/24 0057 Starts/Ends: 05/16/24 0130 - 05/16/24 0102 Ordered Dose (Remaining/Total): 0.2 mg (0/1) Route: intravenous Frequency: Once Ordered Rate/Order Duration: -- / 2 Minutes Timestamps Action Dose / Duration Route Other Information 05/16/24 0100 Given 0.2 mg 2 Minutes intravenous Performed by: Cuca Thakur RN Scanned Package: [id number] sodium zirconium cyclosilicate (LOKELMA) packet 5 g [[id number]] Ordering Provider: Spike Tidwell MD Status: Completed [...] Performed by: Juanita Weems RN Scanned Package: [id number] HYDROmorphone (DILAUDID) injection 0.2 mg [[id number]] Ordering Provider: Amador Nj MD Status: Completed (Past End Date/Time) Ordered On: 05/16/24843 Starts/Ends: 05/16/24914 - 05/16/24909 Ordered Dose (Remaining/Total): 0.2 mg (0/1) Route: intravenous Frequency: Once Ordered Rate/Order Duration: -- / 2 Minutes Timestamps Action Dose / Duration Route Other Information 05/16/24907 Given 0.2 mg 2 Minutes intravenous Performed by: Juanita Weems RN Scanned Package: 0960-1622-24 acetaminophen (TYLENOL) tablet 1,000 mg [[id number]] Ordering Provider: Falguni Galvez NP Status: Verified Ordered On: 05/16/24843 Start: 05/16/24 1200 Ordered Dose (Remaining/Total): 1,000 mg (--/--) Route: oral Frequency: Every 6 hours scheduled Ordered Rate/Order Duration: -- / -- (No admins scheduled or recorded for this medication) methocarbamoL (ROBAXIN) tablet 500 mg [[id number]] Ordering Provider: Falguni Galvez NP Status: Dispensed Ordered On: 05/16/24843 Start: 12/09/24 0915 Ordered Dose (Remaining/Total): 500 mg (--/--) Route: oral Frequency: 3 times daily Ordered Rate/Order Duration: -- / -- Timestamps Action Dose Route Other Information 05/16/24 0932 Given 500 mg oral Performed by: Juanita Weems RN , OT Eval and Treat Last 72 Hours OT Evaluation Row Name 05/15/24 8989 Chart Reviewed Yes -CP Session Type Evaluation [...] ADL Equipment-Currently Using None -CP Level of [place] Independent with ADLs;Independent functional transfers;Independent with ambulation;Needs [...] 72 Hours PT Evaluation Row Name 05/16/24 3877 Chart Reviewed Yes -MR Session Type Evaluation [...] Mobility Equipment-Currently Using None -MR Level of [place] Independent functional transfers;Independent with ambulation;Needs assistancewith ADLs -MR Receives Help From Facility staff;Family -MR Driving No -MR Vocational/Occupation 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 -MR Fall within the last 6 [...] Activity -- -- -- At rest -- [facility] Name 05/14/24 2300 05/14/24 2200 05/14/24 2100 [...] At rest -- -- At rest -- [facility] Name 05/14/24 1800 05/14/24 1715 05/14/24 1555 [...] SpO2 96 % 95 % 97 % ASSORTER * Plan of Care - Cuca Thakur [...] VS, manage pt pain and agitation Summary: ASSORTER * Plan of Zeke - Betsy Hernandez [...] manage pain and agitation, I/O's, PT/OT Summary: ASSORTER * Plan of Zeke - Nataliya Saxena [...] Goals: Clinical Goals for the Shift: VSS, C5ewxhp, Is/Os, pain management Summary: VSS ASSORTER * Plan of Care - Danika Richardson [...] management medication regimen will improve Outcome: Progressing ASSORTER * Assessment & Plan Note - Candy Diaz PA - 05/14/2024 2:29 PM LENS ASSORTER Associated Problem(s): Acute pain Multi modal with lower dose oxycodone ASSORTER * Assessment & Plan Note - Candy Diaz PA - 05/14/2024 2:29 PM LENS ASSORTER Associated Problem(s): Discharge planning issues 05/14 Admitted, syncope, PT/OT 05/16 poorly controlled pain, started schedule pain medications 05/17 agitation, Briscoe catheter placed for urinary retention 05/18 requiring 1:1 sitter 05/19 still requiring 1:1 sitter Treatment Plan completed ASSORTER ASSORTER ASSORTER ASSORTER ASSORTER ASSORTER ASSORTER ASSORTER * Assessment & Plan Note - Lynne [...] no interventions required 05/17 ECHO- results pending ASSORTER ASSORTER ASSORTER ASSORTER ASSORTER * Assessment & Plan Note - Lynne [...] Sublingual 05/19 restarted home PRN Ativan BID ASSORTER ASSORTER ASSORTER * Assessment & Plan Note - Lynne Montero MD - 05/14/2024 1:43 PM CSTAssociated Problem(s): Hypothyroid Continue home levothyroxine 137mcg daily ASSORTER * Assessment & Plan Note - Lynne Montero MD - 05/14/2024 1:42 PM CSTAssociated Problem(s): Hyperlipidemia Continue home atorvastatin 10 daily ASSORTER * Assessment & Plan Note - Lynne Montero MD - 05/14/2024 1:38 PM CSTAssociated Problem(s): Atherosclerosis of both carotid arteries - History of R CEA (2017) and known completely occluded L ICA - repeat carotid duplex given possible syncope - patient should be on ASA 81mg once able to confirm she has no contraindications 05/18 started Aspirin 81 mg PO daily ASSORTER ASSORTER ASSORTER ASSORTER * Assessment & Plan Note - Lynne Montero MD - 05/14/2024 1:36 PM CSTAssociated Problem(s): Pubic ramus fracture, right, closed, initial encounter (HCC) - Orthopedics consult, non-op management - WBAT RLE - Pain control - PT/OT PLAN: Follow up with Dr. Singh, 06/29/21 at 12:30 weight bearing as tolerated, post orthopedic injury DVT prophylaxis Eliquis 2.5 mg pO x 4 weeks at discharge ASSORTER ASSORTER ASSORTER ASSORTER * ED Re-evaluation Note - Frandy Ferreira MD - 05/14/2024 6:29 AM LENS ASSORTER ED Re-evaluation TRANSITION OF CARE: I, Frandy Ferreira MD, am taking signout. I have reviewed all pertinent vital signs, allergies,and history available in the chart. Summary: 83 y.o. female PMH of Alzheimers, HLD, hypothyroid, HTN presenting to the ED as trauma transfer for stable pelvic fracture [facility]. Patient agitated, required 5 of Haldol and [...] MD Fustos, Skyler Pele, MD Resident 05/14/24 9896 ASSORTER * ED Pre-Arrival Note - Alea Summers RN - 05/14/2024 4:45 AM LENS ASSORTER Pre-Arrival Note Patient being transferred from [place], [place] per md garcia and accepted by [facility] as level 3 for stable pelvic fracture s/p ground level fall at [place], hx of dementia, no head injury. Alea Summers, RN ASSORTER documented in this encounter Plan of Treatment [...] GLUCOSE DEVICE Routine 05/20/2024 5 :16 PM LENS ASSORTER POCT GLUCOSE DEVICE Routine 05/20/2024 1 1:11 AM LENS ASSORTER POCT GLUCOSE DEVICE Routine 05/20/2024 7 :52 AM LENS ASSORTER EGFR Routine 05/19/2024 10:37 PM LENS ASSORTER BASIC METABOLIC PANEL Routine 05/19/2024 10:37 PM LENS ASSORTER POCT GLUCOSE DEVICE Routine 05/19/2024 9 :07 PM LENS ASSORTER POCT GLUCOSE DEVICE Routine 05/19/2024 5 :15 PM LENS ASSORTER POCT GLUCOSE DEVICE Routine 05/19/2024 1 1:11 AM LENS ASSORTER POCT GLUCOSE DEVICE Routine 05/19/2024 7 :27 AM LENS ASSORTER EGFR Routine 05/18/2024 9:10 PM LENS ASSORTER CBC WITHOUT DIFFERENTIAL Routine 05/18/2024 9:10 PM LENS ASSORTER PHOSPHORUS Routine 05/18/2024 9:10 PM LENS ASSORTER MAGNESIUM Routine 05/18/2024 9:10 PM LENS ASSORTER BASIC METABOLIC PANEL Routine 05/18/2024 9:10 PM LENS ASSORTER POCT GLUCOSE DEVICE Routine 05/18/2024 8 :55 PM LENS ASSORTER POCT GLUCOSE DEVICE Routine 05/18/2024 5 :27 PM LENS ASSORTER POCT GLUCOSE DEVICE Routine 05/18/2024 1 1:33 AM LENS ASSORTER POCT GLUCOSE DEVICE Routine 05/18/2024 8 :55 AM LENS ASSORTER POCT GLUCOSE DEVICE Routine 05/17/2024 9 :46 PM LENS ASSORTER EGFR Routine 05/17/2024 9:33 PM LENS ASSORTER CBC WITHOUT DIFFERENTIAL Routine 05/17/2024 9:33 PM LENS ASSORTER PHOSPHORUS Routine 05/17/2024 9:33 PM LENS ASSORTER MAGNESIUM Routine 05/17/2024 9:33 PM LENS ASSORTER BASIC METABOLIC PANEL Routine 05/17/2024 9:33 PM LENS ASSORTER POCT GLUCOSE DEVICE Routine 05/17/2024 9 :02 PM LENS ASSORTER POCT GLUCOSE DEVICE Routine 05/17/2024 5 :22 PM LENS ASSORTER POCT GLUCOSE DEVICE Routine 05/17/2024 1 1:53 AM LENS ASSORTER POCT GLUCOSE DEVICE Routine 05/17/2024 8 :45 AM LENS ASSORTER POTASSIUM, WHOLE BLOOD Routine 05/16/2024 11:23 PM LENS ASSORTER EGFR Routine 05/16/2024 8:26 PM LENS ASSORTER POCT GLUCOSE DEVICE Routine 05/16/2024 8 :26 PM LENS ASSORTER CBC WITHOUT DIFFERENTIAL Routine 05/16/2024 8:26 PM LENS ASSORTER PHOSPHORUS Routine 05/16/2024 8:26 PM LENS ASSORTER MAGNESIUM Routine 05/16/2024 8:26 PM LENS ASSORTER BASIC METABOLIC PANEL Routine 05/16/2024 8:26 PM LENS ASSORTER POCT GLUCOSE DEVICE Routine 05/16/2024 6 :10 PM LENS ASSORTER POCT GLUCOSE DEVICE Routine 05/16/2024 1 :34 PM LENS ASSORTER US CAROTIDS DUPLEX BILATERAL IP Routine 05/16/2024 1:16 PM LENS ASSORTER POCT GLUCOSE DEVICE Routine 05/16/2024 8 :21 AM LENS ASSORTER EGFR Routine 05/15/2024 9:06 PM LENS ASSORTER CBC WITHOUT DIFFERENTIAL Routine 05/15/2024 9:06 PM LENS ASSORTER PHOSPHORUS Routine 05/15/2024 9:06 PM LENS ASSORTER MAGNESIUM Routine 05/15/2024 9:06 PM LENS ASSORTER BASIC METABOLIC PANEL Routine 05/15/2024 9:06 PM LENS ASSORTER POCT GLUCOSE DEVICE Routine 05/15/2024 8 :48 PM LENS ASSORTER POCT GLUCOSE DEVICE Routine 05/15/2024 5 :34 PM LENS ASSORTER POCT GLUCOSE DEVICE Routine 05/15/2024 1 2:51 PM LENS ASSORTER POCT GLUCOSE DEVICE Routine 05/15/2024 7 :55 AM LENS ASSORTER POTASSIUM, WHOLE BLOOD Timed 05/14/2024 11:06 PM LENS ASSORTER EGFR Routine 05/14/2024 9:02 PM LENS ASSORTER CBC WITHOUT DIFFERENTIAL Routine 05/14/2024 9:02 PM LENS ASSORTER PHOSPHORUS Routine 05/14/2024 9:02 PM LENS ASSORTER MAGNESIUM Routine 05/14/2024 9:02 PM LENS ASSORTER BASIC METABOLIC PANEL Routine 05/14/2024 9:02 PM LENS ASSORTER POCT GLUCOSE DEVICE Routine 05/14/2024 6 :10 PM LENS ASSORTER XR PELVIS 3 OR MORE VIEWS ED 05/14/2024 10:46 AM LENS ASSORTER RESPIRATORY PATHOGEN PANEL Routine 05/14/2024 10:[address] BODY OUTSIDE REFERENCE Routine 05/14/2024 10:12 AM LENS ASSORTER URINALYSIS AND REFLEX TO MICROSCOPIC AND CULTURE STAT 05/14/2024 10:12 AM LENS ASSORTER URINALYSIS, MICROSCOPIC ONLY STAT 05/14/2024 10:12 AM LENS ASSORTER URINE CULTURE STAT 05/14/2024 10:12 AM LENS ASSORTER XR CHEST 1 VIEW Critical/Life-T hreatening 05/14/2024 7:22 AM LENS ASSORTER B CHECK SAMPLE STAT 05/14/2024 6:48 AM LENS ASSORTER NEURO CT OUTSIDE CONSULT Routine 05/14/2024 6:09 AM LENS ASSORTER NEURO CT OUTSIDE REFERENCE Routine 05/14/2024 6:[address] BODY OUTSIDE CONSULT Routine 05/14/2024 5:59 AM LENS ASSORTER XR TRANSFER OF OUTSIDE FILMS Routine 05/14/2024 5:56 AM LENS ASSORTER XR TRANSFER OF OUTSIDE FILMS Routine 05/14/2024 5:[address] BODY OUTSIDE REFERENCE Routine 05/14/2024 5:46 AM LENS ASSORTER NEURO CT OUTSIDE REFERENCE Routine 05/14/2024 5:44 AM LENS ASSORTER EGFR STAT 05/14/2024 5:35 AM LENS ASSORTER DIFFERENTIAL AUTO STAT 05/14/2024 5:3 5 AM LENS ASSORTER CBC WITH AUTO DIFFERENTIAL STAT 05/14/2024 5:35 AM LENS ASSORTER APTT STAT 05/14/2024 5:35 AM LENS ASSORTER PROTIME-INR STAT 05/14/2024 5:35 AM LENS ASSORTER TYPE AND SCREEN STAT 05/14/2024 5:35 AM LENS ASSORTER COMPREHENSIVE METABOLIC PANEL STAT 05/14/2024 5:35 AM LENS ASSORTER documented in this encounter Results * POCT glucose (05/20/2024 5:16 PM LENS ASSORTER) Glucose, POC 126 70 - 199 mg/dL Blood 05/20/2024 5:16 PM LENS ASSORTER 05/20/2024 5:16 PM LENS ASSORTER Raúl Sawant MD LAB POCT ORDERABLES - DEVICE Final Result Performing Organization Address [facility]/ZIP Co de Phone Number [facility] Department [place] [address] * POCT glucose (05/20/2024 11:11 AM LENS ASSORTER) Glucose, POC 118 70 - 199 mg/dL Blood 05/20/2024 11:1 1 AM LENS ASSORTER 05/20/2024 11:11 AM LENS ASSORTER Raúl Sawant MD LAB POCT ORDERABLES - DEVICE Final Result Performing Organization Address [facility]/ZIP Co de Phone Number [facility] Department [place] [address] * POCT glucose (05/20/2024 7:52 AM LENS ASSORTER) Glucose, POC 125 70 - 199 mg/dL Blood 05/20/2024 7:52 AM LENS ASSORTER 05/20/2024 7:52 AM LENS ASSORTER Raúl Sawant MD LAB POCT ORDERABLES - DEVICE Final Result [facility] Department [place] [address] * eGFR (05/19/2024 10:37 PM LENS ASSORTER) eGFR 63 >=60 mL/min/1. 73 m2 Comment: [...] reviewed 2021. Blood 05/19/2024 10:3 7 PM LENS ASSORTER 05/19/2024 10:53 PM LENS ASSORTER Raúl Sawant MD LAB BLOOD ORDERABLES F inal Result Performing Organization Address City/[facility]/ZIP Co de Phone Number [facility] Department [place] [address] * (ABNORMAL) Basic metabolic panel (05/19/2024 10:37 PM LENS ASSORTER) [facility] Sodium 138 135 - 145 mmol/L Potassium, pl 4.2 3.3 - 4.9 mmol/L [facility] [facility] Chloride 102 97 - 110 mmol/L [facility] CO2 24 22 - 32 mmol/L [facility] Anion gap 12 2 - 15 mmol/L [facility] BUN 25 6 - 25 mg/dL [facility] Creatinine 0.92 0.60 - 1.10 mg/dL [facility] Glucose 125 70 - 199 mg/dL [facility] Comment: Interpretive Data Fasting glucose >/= 126 [...] 2022. Calcium 8.4(L) 8.5 - 10.3 mg/dL [facility] Blood 05/19/2024 10:3 7 PM LENS ASSORTER 05/19/2024 10:53 PM LENS ASSORTER Raúl Sawant MD LAB BLOOD ORDERABLES F inal Result Performing Organization Address [facility]/ZIP Co de Phone Number [facility] Department [place] [address] * POCT glucose (05/19/2024 9:07 PM LENS ASSORTER) Glucose, POC 114 70 - 199 mg/dL Blood 05/19/2024 9:07 PM LENS ASSORTER 05/19/2024 9:07 PM LENS ASSORTER Raúl Sawant MD LAB POCT ORDERABLES - DEVICE Final Result Performing Organization Address [facility] Co de Phone Number [facility] [place] [address] * POCT glucose (05/19/2024 5:15 PM LENS ASSORTER) Glucose, POC 121 70 - 199 mg/dL Blood 05/19/2024 5:15 PM LENS ASSORTER 05/19/2024 5:15 PM LENS ASSORTER Raúl Sawant MD LAB POCT ORDERABLES - DEVICE Final Result Performing Organization Address [facility] Co de Phone Number [facility] [place] [address] * POCT glucose (05/19/2024 11:11 AM LENS ASSORTER) Glucose, POC 118 70 - 199 mg/dL Blood 05/19/2024 11:1 1 AM LENS ASSORTER 05/19/2024 11:11 AM LENS ASSORTER Raúl Sawant MD LAB POCT ORDERABLES - DEVICE Final Result Performing Organization Address [facility] Co de Phone Number [facility] [place] [address] * POCT glucose (05/19/2024 7:27 AM LENS ASSORTER) Glucose, POC 112 70 - 199 mg/dL Blood 05/19/2024 7:27 AM LENS ASSORTER 05/19/2024 7:27 AM LENS ASSORTER us Raúl Sawant MD LAB POCT ORDERABLES - DEVICE Final Result Performing Organization Address [facility] Co de Phone Number [facility] [place] [address] * (ABNORMAL) eGFR (05/18/2024 9:10 PM LENS ASSORTER) eGFR 53(L) >=60 mL/min/1. 73 m2 Comment: [...] last reviewed 2021. Blood 05/18/2024 9:10 PM LENS ASSORTER 05/18/2024 9:26 PM LENS ASSORTER us Raúl Sawant MD LAB BLOOD ORDERABLES F inal Result Performing Organization Address [facility] Co de Phone Number [facility] Department [place] [address] * (ABNORMAL) Basic metabolic panel (05/18/2024 9:10 PM LENS ASSORTER) Pathologist [facility] Sodium 138 135 - 145 mmol/L Potassium, pl 4.4 3.3 - 4.9 mmol/L [facility] Chloride 105 97 - 110 mmol/L [facility] CO2 25 22 - 32 mmol/L [facility] Anion gap 8 2 - 15 mmol/L [facility] BUN 32(H) 6 - 25 mg/dL [facility] Creatinine 1.06 0.60 - 1.10 mg/dL [facility] Glucose 116 70 - 199 mg/dL [facility] Comment: Interpretive Data Fasting glucose >/= 126 [...] 2022. Calcium 8.8 8.5 - 10.3 mg/dL [facility] Blood 05/18/2024 9:10 PM LENS ASSORTER 05/18/2024 9:26 PM LENS ASSORTER Raúl Sawant MD LAB BLOOD ORDERABLES F inal Result [facility] Department [place] [address] * Phosphorus (05/18/2024 9:10 PM LENS ASSORTER) Pathologist [facility] Phosphorus, pl 2.7 2.3 - 4.5 mg/dL Blood 05/18/2024 9:10 PM LENS ASSORTER 05/18/2024 9:26 PM LENS ASSORTER Raúl Sawant MD LAB BLOOD ORDERABLES F inal Result Performing Organization Address City/[facility]/ZIP Co de Phone Number [facility] [place] [address] * Magnesium (05/18/2024 9:10 PM LENS ASSORTER) [facility] Magnesium 2.5 1.4 - 2.5 mg/dL Blood 05/18/2024 9:10 PM LENS ASSORTER 05/18/2024 9:26 PM LENS ASSORTER Raúl Sawant MD LAB BLOOD ORDERABLES F inal Result Performing Organization Address [facility] de Phone Number [facility] [place] [address] * (ABNORMAL) CBC without differential (05/18/2024 9:10 PM LENS ASSORTER) [facility] WBC 9.8 3.8 - 9.9 K/cumm Hgb 9.9(L) 11.9 - 15.5 g/dL [facility] Hct 30.8(L) 35.6 - 45.5 % [facility] Plt 226 150 - 400 K/cumm [facility] MPV 9.7 9.1 - 12.3 fL [facility] RBC 3.12(L) 3.90 - 5.20 M/cumm [facility] MCV 98.7(H) 81.3 - 96.4 fL [facility] MCH 31.7 27.1 - 33.3 pg [facility] MCHC 32.1(L) 32.3 - 35.7 g/dL [facility] RDW CV 14.4 11.1 - 14.9 % [facility] RDW SD 51.3(H) 35.7 - 48.1 fL [facility] NRBC abs 0.02(H) 0.00 - 0.01 K/cumm [facility] Blood 05/18/2024 9:10 PM LENS ASSORTER 05/18/2024 9:26 PM LENS ASSORTER Raúl Sawant MD LAB BLOOD ORDERABLES F inal Result Performing Organization Address City/[facility] Co de Phone Number [facility] [place] [address] * POCT glucose (05/18/2024 8:55 PM LENS ASSORTER) Glucose, POC 110 70 - 199 mg/dL Blood 05/18/2024 8:55 PM LENS ASSORTER 05/18/2024 8:55 PM LENS ASSORTER Raúl Sawant MD LAB POCT ORDERABLES - DEVICE Final Result Performing Organization Address [facility] [place] [address] * POCT glucose (05/18/2024 5:27 PM LENS ASSORTER) Glucose, POC 115 70 - 199 mg/dL Blood 05/18/2024 5:27 PM LENS ASSORTER 05/18/2024 5:27 PM LENS ASSORTER Raúl Sawant MD LAB POCT ORDERABLES - DEVICE Final Result Performing Organization Address [facility] Co de Phone Number [facility] [place] [address] * POCT glucose (05/18/2024 11:33 AM LENS ASSORTER) Glucose, POC 139 70 - 199 mg/dL Blood 05/18/2024 11:3 3 AM LENS ASSORTER 05/18/2024 11:33 AM LENS ASSORTER Raúl Sawant MD LAB POCT ORDERABLES - DEVICE Final Result Performing Organization Address City/[facility]/ZIP Co de Phone Number [facility] [place] [address] * POCT glucose (05/18/2024 8:55 AM LENS ASSORTER) Glucose, POC 146 70 - 199 mg/dL Blood 05/18/2024 8:55 AM LENS ASSORTER 05/18/2024 8:55 AM LENS ASSORTER Raúl Sawant MD LAB POCT ORDERABLES - DEVICE Final Result Performing Organization Address [facility] de Phone Number [facility] [place] [address] * POCT glucose (05/17/2024 9:46 PM LENS ASSORTER) Glucose, POC 144 70 - 199 mg/dL Blood 05/17/2024 9:46 PM LENS ASSORTER 05/17/2024 9:46 PM LENS ASSORTER Raúl Sawant MD LAB POCT ORDERABLES - DEVICE Final Result Performing Organization Address [facility] de Phone Number [facility] [place] [place] [address] * (ABNORMAL) eGFR (05/17/2024 9:33 PM LENS ASSORTER) eGFR 51(L) >=60 mL/min/1. 73 m2 Comment: [...] last reviewed 2021. Blood 05/17/2024 9:33 PM LENS ASSORTER 05/17/2024 9:54 PM LENS ASSORTER Raúl Sawant MD LAB BLOOD ORDERABLES F inal Result [facility] Department [place] [address] * (ABNORMAL) Basic metabolic panel (05/17/2024 9:33 PM LENS ASSORTER) Pathologist [facility] Sodium 136 135 - 145 mmol/L Potassium, pl 4.5 3.3 - 4.9 mmol/L [facility] Chloride 102 97 - 110 mmol/L [facility] CO2 23 22 - 32 mmol/L [facility] Anion gap 11 2 - 15 mmol/L [facility] BUN 40(H) 6 - 25 mg/dL [facility] Creatinine 1.09 0.60 - 1.10 mg/dL [facility] Glucose 124 70 - 199 mg/dL [facility] Comment: Interpretive Data Fasting glucose >/= 126 [...] 2022. Calcium 8.6 8.5 - 10.3 mg/dL [facility] Blood 05/17/2024 9:33 PM LENS ASSORTER 05/17/2024 9:54 PM LENS ASSORTER Result [facility] Raúl Sawant MD LAB BLOOD ORDERABLES F inal Result Performing Organization Address City/[facility] Co de Phone Number [facility] [place] [address] * Phosphorus (05/17/2024 9:33 PM LENS ASSORTER) Pathologist [facility] Phosphorus, pl 3.3 2.3 - 4.5 mg/dL Blood 05/17/2024 9:33 PM LENS ASSORTER 05/17/2024 9:54 PM LENS ASSORTER Result [facility] Raúl Sawant MD LAB BLOOD ORDERABLES F inal Result Performing Organization Address [facility] Co de Phone Number [facility] [place] [address] * Magnesium (05/17/2024 9:33 PM LENS ASSORTER) [facility] Magnesium 2.4 1.4 - 2.5 mg/dL Blood 05/17/2024 9:33 PM LENS ASSORTER 05/17/2024 9:54 PM LENS ASSORTER Result [facility] Raúl Sawant MD LAB BLOOD ORDERABLES F inal Result Performing Organization Address City/[facility] Co de Phone Number [facility] [place] [address] * (ABNORMAL) CBC without differential (05/17/2024 9:33 PM LENS ASSORTER) [facility] WBC 13.0(H) 3.8 - 9.9 K/cumm Hgb 10.8(L) 11.9 - 15.5 g/dL [facility] Hct 32.9(L) 35.6 - 45.5 % [facility] Plt 248 150 - 400 K/cumm [facility] MPV 10.1 9.1 - 12.3 fL [facility] RBC 3.39(L) 3.90 - 5.20 M/cumm [facility] MCV 97.1(H) 81.3 - 96.4 fL [facility] MCH 31.9 27.1 - 33.3 pg [facility] MCHC 32.8 32.3 - 35.7 g/dL [facility] RDW CV 13.9 11.1 - 14.9 % [facility] RDW SD 49.3(H) 35.7 - 48.1 fL [facility] NRBC abs 0.00 0.00 - 0.01 K/cumm [facility] Blood 05/17/2024 9:33 PM LENS ASSORTER 05/17/2024 9:55 PM LENS ASSORTER Raúl Sawant MD LAB BLOOD ORDERABLES F inal Result [facility] [place] [place] [address] * POCT glucose (05/17/2024 9:02 PM LENS ASSORTER) Glucose, POC 177 70 - 199 mg/dL Blood 05/17/2024 9:02 PM LENS ASSORTER 05/17/2024 9:02 PM LENS ASSORTER Raúl Sawant MD LAB POCT ORDERABLES - DEVICE Final Result [facility] [place] [address] * POCT glucose (05/17/2024 5:22 PM LENS ASSORTER) Glucose, POC 143 70 - 199 mg/dL Blood 05/17/2024 5:22 PM LENS ASSORTER 05/17/2024 5:22 PM LENS ASSORTER Raúl Sawant MD LAB POCT ORDERABLES - DEVICE Final Result Performing Organization Address [facility] Co de Phone Number [facility] [place] [address] * POCT glucose (05/17/2024 11:53 AM LENS ASSORTER) Glucose, POC 160 70 - 199 mg/dL Blood 05/17/2024 11:5 3 AM LENS ASSORTER 05/17/2024 11:53 AM LENS ASSORTER Raúl Sawant MD LAB POCT ORDERABLES - DEVICE Final Result Performing Organization Address [facility] de Phone Number [facility] [place] [address] * POCT glucose (05/17/2024 8:45 AM LENS ASSORTER) Glucose, POC 135 70 - 199 mg/dL Blood 05/17/2024 8:45 AM LENS ASSORTER 05/17/2024 8:45 AM LENS ASSORTER Raúl Sawant MD LAB POCT ORDERABLES - DEVICE Final Result Performing Organization Address [facility] de Phone Number [facility] [place] [address] * Potassium, whole blood (05/16/2024 11:23 PM LENS ASSORTER) Potassium, bld 4.7 3.3 - 4.9 mmol/L Blood 05/16/2024 11:2 3 PM LENS ASSORTER 05/16/2024 11:29 PM LENS ASSORTER Raúl Sawant MD LAB BLOOD ORDERABLES F inal Result Performing Organization Address [facility] Co de Phone Number [facility] Department [place] [address] * (ABNORMAL) eGFR (05/16/2024 8:26 PM LENS ASSORTER) Pathologist [facility] eGFR 37(L) >=60 mL/min/1. 73 m2 Comment: [...] last reviewed 2021. Blood 05/16/2024 8:26 PM LENS ASSORTER 05/16/2024 8:43 PM LENS ASSORTER us Raúl Sawant MD LAB BLOOD ORDERABLES F inal Result [facility] Department [place] [address] * POCT glucose (05/16/2024 8:26 PM LENS ASSORTER) [facility] Glucose, POC 148 70 - 199 mg/dL Blood 05/16/2024 8:26 PM LENS ASSORTER 05/16/2024 8:26 PM LENS ASSORTER Raúl Sawant MD LAB POCT ORDERABLES - DEVICE Final Result [facility] Department [place] [address] * (ABNORMAL) Basic metabolic panel (05/16/2024 8:26 PM LENS ASSORTER) Pathologist [facility] Sodium 130(L) 135 - 145 mmol/L Potassium, pl 5.1(H) 3.3 - 4.9 mmol/L [facility] Comment:Hemolyzed; Potassium value may be falsely elevated by as much as 0.3-0.5 mmol/L. Suggest redraw and reanalysis. Chloride 98 97 - 110 mmol/L [facility] CO2 21(L) 22 - 32 mmol/L [facility] Anion gap 11 2 - 15 mmol/L [facility] BUN 49(H) 6 - 25 mg/dL [facility] Creatinine 1.43(H) 0.60 - 1.10 mg/dL [facility] Glucose 139 70 - 199 mg/dL [facility] Comment: Interpretive Data Fasting glucose >/= 126 [...] 2022. Calcium 8.3(L) 8.5 - 10.3 mg/dL [facility] Blood 05/16/2024 8:26 PM LENS ASSORTER 05/16/2024 8:43 PM LENS ASSORTER Raúl Sawant MD LAB BLOOD ORDERABLES F inal Result Performing Organization Address [facility] Co de Phone Number [facility] [place] [address] * Phosphorus (05/16/2024 8:26 PM LENS ASSORTER) [facility] Phosphorus, pl 3.9 2.3 - 4.5 mg/dL Blood 05/16/2024 8:26 PM LENS ASSORTER 05/16/2024 8:43 PM LENS ASSORTER Raúl Sawant MD LAB BLOOD ORDERABLES F inal Result Performing Organization Address [facility] de Phone Number [facility] [place] [address] * Magnesium (05/16/2024 8:26 PM LENS ASSORTER) [facility] Magnesium 2.5 1.4 - 2.5 mg/dL Blood 05/16/2024 8:26 PM LENS ASSORTER 05/16/2024 8:43 PM LENS ASSORTER Result [facility] Raúl Sawant MD LAB BLOOD ORDERABLES F inal Result Performing Organization Address [facility] de Phone Number [facility] [place] [address] * (ABNORMAL) CBC without differential (05/16/2024 8:26 PM LENS ASSORTER) [facility] WBC 14.3(H) 3.8 - 9.9 K/cumm Hgb 10.2(L) 11.9 - 15.5 g/dL [facility] Hct 30.8(L) 35.6 - 45.5 % [facility] Plt 268 150 - 400 K/cumm [facility] MPV 10.4 9.1 - 12.3 fL [facility] RBC 3.22(L) 3.90 - 5.20 M/cumm [facility] MCV 95.7 81.3 - 96.4 fL [facility] MCH 31.7 27.1 - 33.3 pg [facility] MCHC 33.1 32.3 - 35.7 g/dL [facility] RDW CV 14.1 11.1 - 14.9 % [facility] RDW SD 49.5(H) 35.7 - 48.1 fL [facility] NRBC abs 0.00 0.00 - 0.01 K/cumm [facility] Blood 05/16/2024 8:26 PM LENS ASSORTER 05/16/2024 8:43 PM LENS ASSORTER Raúl Sawant MD LAB BLOOD ORDERABLES F inal Result Performing Organization Address City/[facility] Co de Phone Number [facility] [place] [address] * POCT glucose (05/16/2024 6:10 PM LENS ASSORTER) Glucose, POC 161 70 - 199 mg/dL Blood 05/16/2024 6:10 PM LENS ASSORTER 05/16/2024 6:10 PM LENS ASSORTER Raúl Sawant MD LAB POCT ORDERABLES - DEVICE Final Result Performing Organization Address [facility] Co de Phone Number [facility] [place] [address] * POCT glucose (05/16/2024 1:34 PM LENS ASSORTER) Glucose, POC 163 70 - 199 mg/dL Blood 05/16/2024 1:34 PM LENS ASSORTER 05/16/2024 1:34 PM LENS ASSORTER Raúl Sawant MD LAB POCT ORDERABLES - DEVICE Final Result Performing Organization Address City/[facility]/ZIP Co de Phone Number [facility] [place] [address] * US Carotids Duplex Bilateral (05/16/2024 1:16 PM LENS ASSORTER) Anatomical Region Laterality Modality Vascular Bilateral Ultrasound 05/16/2024 11:5 7 AM LENS ASSORTER Narrative 05/18/2024 12:28 AM LENS ASSORTER [facility] - Department of Vascular Surgery, Vascular Laboratory [address] [place] [id number] Carotid Duplex Ultrasound Report Patient Name: INDY VALDEZ : 1940 (83y 10m) Study Date: 05/16/2024 11:57:01 AM Gender: F Tech: IA Location: [id number] Ref Provider: RAÚL SAWANT Quality: Adequate Order [...] PSV ?60 cm/sec - ?? FINDINGS: Performing Sliver Lap Machine Tender: Batsheva Kohli RVT. Rt Common Carotid Artery: [...] Nii Wilson MD FACS 05/18/2024 12:27:58 AM LENS ASSORTER Procedure Note Nii Wilson MD - 05/18/2024 [facility] - Department of Vascular Surgery,Vascular Laboratory [address] [place] [address] Carotid Duplex Ultrasound Report Patient Name: INDY VALDEZ : 1940 (83y 10m) Study Date: 05/16/2024 11:57:01 AM Gender: F Tech: MT Location: [id number] Ref Provider: RAÚL SAWANT Quality: Adequate Order [...] RT VERT PSV 60cm/sec - FINDINGS: Performing Sliver Lap Machine Tender: Batsheva Kohli RVT. Rt Common Carotid Artery: [...] above. Electronically Signed By: Nii Wilson MD [facility] 05/18/2024 12:27:58 AM LENS ASSORTER Raúl Sawant MD IM US PROCEDURES Chanelle l Result * POCT glucose (05/16/2024 8:21 AM LENS ASSORTER) Glucose, POC 138 70 - 199 mg/dL Blood 05/16/2024 8:21 AM LENS ASSORTER 05/16/2024 8:21 AM LENS ASSORTER Raúl Sawant MD LAB POCT ORDERABLES - DEVICE Final Result Performing Organization Address City/State/[facility] Co pr Phone Number [facility] Department [place] [address] * (ABNORMAL) eGFR (05/15/2024 9:06 PM LENS ASSORTER) eGFR 35(L) >=60 mL/min/1. 73 m2 Comment: [...] last reviewed 2021. Blood 05/15/2024 9:06 PM LENS ASSORTER 05/15/2024 9:34 PM LENS ASSORTER Raúl Sawant MD LAB BLOOD ORDERABLES F inal Result [facility] Department [place] [address] * (ABNORMAL) Basic metabolic panel (05/15/2024 9:06 PM LENS ASSORTER) Sodium 137 135 - 145 mmol/L Potassium, pl 5.1(H) 3.3 - 4.9 mmol/L [facility] Chloride 103 97 - 110 mmol/L [facility] CO2 22 22 - 32 mmol/L [facility] Anion gap 12 2 - 15 mmol/L [facility] BUN 50(H) 6 - 25 mg/dL [facility] Creatinine 1.50(H) 0.60 - 1.10 mg/dL [facility] Glucose 164 70 - 199 mg/dL [facility] Comment: Interpretive Data Fasting glucose >/= 126 [...] 2022. Calcium 8.7 8.5 - 10.3 mg/dL [facility] Blood 05/15/2024 9:06 PM LENS ASSORTER 05/15/2024 9:34 PM LENS ASSORTER Raúl Sawant MD LAB BLOOD ORDERABLES F inal Result [facility] Department [place] [address] * Phosphorus (05/15/2024 9:06 PM LENS ASSORTER) Phosphorus, pl 3.7 2.3 - 4.5 mg/dL Blood 05/15/2024 9:06 PM LENS ASSORTER 05/15/2024 9:34 PM LENS ASSORTER Raúl Sawant MD LAB BLOOD ORDERABLES F inal Result Performing Organization Address City/[facility] Co de Phone Number [facility] [place] [address] * Magnesium (05/15/2024 9:06 PM LENS ASSORTER) [facility] Magnesium 2.3 1.4 - 2.5 mg/dL Blood 05/15/2024 9:06 PM LENS ASSORTER 05/15/2024 9:34 PM LENS ASSORTER Raúl Sawant MD LAB BLOOD ORDERABLES F inal Result Performing Organization Address [facility] de Phone Number [facility] [place] [address] * (ABNORMAL) CBC without differential (05/15/2024 9:06 PM LENS ASSORTER) [facility] WBC 14.8(H) 3.8 - 9.9 K/cumm Hgb 10.8(L) 11.9 - 15.5 g/dL [facility] Hct 33.0(L) 35.6 - 45.5 % [facility] Plt 224 150 - 400 K/cumm [facility] MPV 9.9 9.1 - 12.3 fL [facility] RBC 3.44(L) 3.90 - 5.20 M/cumm [facility] MCV 95.9 81.3 - 96.4 fL [facility] MCH 31.4 27.1 - 33.3 pg [facility] MCHC 32.7 32.3 - 35.7 g/dL [facility] RDW CV 14.1 11.1 - 14.9 % [facility] RDW SD 50.0(H) 35.7 - 48.1 fL [facility] NRBC abs 0.00 0.00 - 0.01 K/cumm [facility] Blood 05/15/2024 9:06 PM LENS ASSORTER 05/15/2024 9:29 PM LENS ASSORTER Result [facility] Raúl Sawant MD LAB BLOOD ORDERABLES F inal Result Performing Organization Address [facility] Co de Phone Number [facility] [place] [address] * POCT glucose (05/15/2024 8:48 PM LENS ASSORTER) Glucose, POC 162 70 - 199 mg/dL Blood 05/15/2024 8:48 PM LENS ASSORTER 05/15/2024 8:48 PM LENS ASSORTER Result [facility] Raúl Sawant MD LAB POCT ORDERABLES - DEVICE Final Result Performing Organization Address [facility] Co de Phone Number [facility] [place] [address] * POCT glucose (05/15/2024 5:34 PM LENS ASSORTER) Glucose, POC 138 70 - 199 mg/dL Blood 05/15/2024 5:34 PM LENS ASSORTER 05/15/2024 5:34 PM LENS ASSORTER Result [facility] Raúl Sawant MD LAB POCT ORDERABLES - DEVICE Final Result Performing Organization Address [facility] Co de Phone Number [facility] [place] [address] * POCT glucose (05/15/2024 12:51 PM LENS ASSORTER) Glucose, POC 138 70 - 199 mg/dL Blood 05/15/2024 12:5 1 PM LENS ASSORTER 05/15/2024 12:51 PM LENS ASSORTER Result [facility] Raúl Sawant MD LAB POCT ORDERABLES - DEVICE Final Result Performing Organization Address [facility] de Phone Number [facility] [place] [address] * (ABNORMAL) POCT glucose (05/15/2024 7:55 AM LENS ASSORTER) Pathologist [facility] Glucose, POC 276(H) 70 - 199 mg/dL Blood 05/15/2024 7:55 AM LENS ASSORTER 05/15/2024 7:55 AM LENS ASSORTER Raúl Sawant MD LAB POCT ORDERABLES - DEVICE Final Result Performing Organization Address [facility] de Phone Number [facility] [place] [address] * (ABNORMAL) Potassium, whole blood (05/14/2024 11:06 PM LENS ASSORTER) [facility] Potassium, bld 5.0(H) 3.3 - 4.9 mmol/L Blood 05/14/2024 11:0 6 PM LENS ASSORTER 05/14/2024 11:18 PM LENS ASSORTER Result [facility] Raúl Sawant MD LAB BLOOD ORDERABLES F inal Result Performing Organization Address [facility] de Phone Number [facility] [place] [address] * (ABNORMAL) eGFR (05/14/2024 9:02 PM LENS ASSORTER) [facility] eGFR 31(L) >=60 mL/min/1. 73 m2 Comment: [...] last reviewed 2021. Blood 05/14/2024 9:02 PM LENS ASSORTER 05/14/2024 9:24 PM LENS ASSORTER us Raúl Sawant MD LAB BLOOD ORDERABLES F inal Result [facility] Department [place] [address] * (ABNORMAL) Basic metabolic panel (05/14/2024 9:02 PM LENS ASSORTER) Sodium 135 135 - 145 mmol/L Potassium, pl 5.1(H) 3.3 - 4.9 mmol/L [facility] Chloride 103 97 - 110 mmol/L [facility] CO2 20(L) 22 - 32 mmol/L [facility] Anion gap 12 2 - 15 mmol/L [facility] BUN 44(H) 6 - 25 mg/dL [facility] Creatinine 1.63(H) 0.60 - 1.10 mg/dL [facility] Glucose 183 70 - 199 mg/dL [facility] Comment: Interpretive Data Fasting glucose >/= 126 [...] 2022. Calcium 8.5 8.5 - 10.3 mg/dL [facility] Blood 05/14/2024 9:02 PM LENS ASSORTER 05/14/2024 9:24 PM LENS ASSORTER Raúl Sawant MD LAB BLOOD ORDERABLES F inal Result Performing Organization Address City/[facility] Co de Phone Number [facility] Department [place] [address] * (ABNORMAL) Phosphorus (05/14/2024 9:02 PM LENS ASSORTER) Phosphorus, pl 5.1(H) 2.3 - 4.5 mg/dL Blood 05/14/2024 9:02 PM LENS ASSORTER 05/14/2024 9:24 PM LENS ASSORTER Result [facility] Raúl Sawant MD LAB BLOOD ORDERABLES F inal Result Performing Organization Address [facility] Co de Phone Number [facility] Department [place] [address] * Magnesium (05/14/2024 9:02 PM LENS ASSORTER) Magnesium 2.2 1.4 - 2.5 mg/dL Blood 05/14/2024 9:02 PM LENS ASSORTER 05/14/2024 9:24 PM LENS ASSORTER Raúl Sawant MD LAB BLOOD ORDERABLES F inal Result Performing Organization Address [facility] Co de Phone Number [facility] Department [place] [address] * (ABNORMAL) CBC without differential (05/14/2024 9:02 PM LENS ASSORTER) WBC 12.7(H) 3.8 - 9.9 K/cumm Hgb 11.8(L) 11.9 - 15.5 g/dL [facility] Hct 36.5 35.6 - 45.5 % [facility] Plt 221 150 - 400 K/cumm [facility] MPV 10.1 9.1 - 12.3 fL [facility] RBC 3.73(L) 3.90 - 5.20 M/cumm [facility] MCV 97.9(H) 81.3 - 96.4 fL [facility] MCH 31.6 27.1 - 33.3 pg [facility] MCHC 32.3 32.3 - 35.7 g/dL [facility] RDW CV 14.4 11.1 - 14.9 % [facility] RDW SD 52.1(H) 35.7 - 48.1 fL [facility] NRBC abs 0.00 0.00 - 0.01 K/cumm [facility] Blood 05/14/2024 9:02 PM LENS ASSORTER 05/14/2024 9:24 PM LENS ASSORTER us Raúl Sawant MD LAB BLOOD ORDERABLES F inal Result Performing Organization Address City/[facility]/ZIP Co de Phone Number [facility] Department [place] [address] * POCT glucose (05/14/2024 6:10 PM LENS ASSORTER) Pathologist [facility] Glucose, POC 148 70 - 199 mg/dL Blood 05/14/2024 6:10 PM LENS ASSORTER 05/14/2024 6:10 PM LENS ASSORTER Raúl Sawant MD LAB POCT ORDERABLES - DEVICE Final Result Performing Organization Address [facility]/ZIP Co de Phone Number [facility] [place] [address] * XR Pelvis 3 or More Views (05/14/2024 10:46 AM LENS ASSORTER) Anatomical Region Laterality Modality Pelvis, Body N/A Computed Radiogr aphy 05/14/2024 11:1 9 AM LENS ASSORTER Impressions 05/14/2024 11:19 AM LENS ASSORTER There are fractures of the right superior and inferior pubic ramus as well as the right sacral ala. ??Contrast is noted within the urinary bladder. No definite extraluminal contrast. ??If there is concern for bladder injury, consider CT cystogram. Electronically signed by: Kendal Braun M.D. Narrative 05/14/2024 11:19 AM LENS ASSORTER EXAMINATION: XR PELVIS 3 OR MORE VIEWS [...] Respiratory pathogen panel Nasopharyngeal (05/14/2024 10:15 AM LENS ASSORTER) Influenza A RNA Not Detected Not Detected Influenza B RNA Not Detected Not Detected [facility] RSV RNA Not Detected Not Detected [facility] COVID-19 RNA Not Detected Not Detected [facility] Coronavirus 229E RNA Not Detected Not Detected [facility] Coronavirus HKU1 RNA Not Detected Not Detected [facility] Coronavirus NL63 RNA Not Detected Not Detected [facility] Coronavirus OC43 RNA Not Detected Not Detected [facility] Adenovirus DNA Not Detected Not Detected [facility] Metapneumovirus RNA Not Detected Not Detected [facility] Rhinovirus/Enterov irus RNA Detected(A) Not Detected [facility] Parainfluenza 1 RNA Not Detected Not Detected [facility] Parainfluenza 2 RNA Not Detected Not Detected [facility] Parainfluenza 3 RNA Not Detected Not Detected [facility] Parainfluenza 4 RNA Not Detected Not Detected [facility] B. pertussis DNA Not Detected Not Detected [facility] B. parapertussis DNA Not Detected Not Detected [facility] C. pneumoniae DNA Not Detected Not Detected [facility] M. pneumoniae DNA Not Detected Not Detected [facility] Nasopharyngeal 05/14/2024 10 :15 AM LENS ASSORTER 05/14/2024 10:43 AM LENS ASSORTER Narrative [facility] - 05/14/2024 11:35 AM LENS ASSORTER Is the Patient experiencing symptoms consistent with COVID?->Yes Surveillance testing for transplant patient?->No ??Interpretive Data The [email or web address] FilmArray Respiratory Panel (RP2.1) assay is a [...] assay has FDA clearance for testing of FOOD AND BEVERAGE ORDER CLERK swabs. ??The performance of additional specimen types has been assessed by the performing laboratory. ??The performance characteristics of this assay have been determined by [facility] Molecular Infectious Disease Laboratory. Current interpretive data was last revised on 22. us Frandy Ferreira MD LAB MICROBIOLOGY - GENERAL ORDERABLES Final Result Performing Organization Address City/[facility] Co de Phone Number [facility] Department [place] [address] * CT Body Outside Reference (05/14/2024 10:12 AM LENS ASSORTER) Impressions [facility] - 05/14/2024 10:12 AM LENS ASSORTER These images are for Reference purposes only and have not been reviewed by [facility]. ??There will be no report generated by a [facility] Radiologist. Narrative [facility] - 05/14/2024 10:12 AM LENS ASSORTER EXAMINATION: ??Images For Reference Purposes Only us Frandy Ferreira MD IMG CT PROCEDURES Final Re sult Performing Organization Address City/[facility] Co de Phone Number [email or web address] * (ABNORMAL) Urine culture Urine (05/14/2024 10:12 AM LENS ASSORTER) Report Final Report: Greater than or equal to 100,000 colonies/mL of Klebsiella pneumoniae (.) Organism KLEBSIELLA PNEUMONIAE [facility] Urine 05/14/2024 10:1 2 AM LENS ASSORTER 05/14/2024 5:03 PM LENS ASSORTER Narrative [facility] - 05/16/2024 12:42 PM LENS ASSORTER Urine culture reflexed based upon urinalysis results. Testing performed by [facility] Microbiology Laboratory ([phone]) Organism Antibiotic Method Susceptibility Klebsiella pneumoniae Ampicillin [...] ERAL ORDERABLES Final Result Performing Organization Address [facility] Co de Phone Number [facility] Department [place] [address] * (ABNORMAL) Urinalysis, microscopic only (05/14/2024 10:12 AM LENS ASSORTER) WBC, ur >50(A) 0 - 5 /HPF RBC, ur 11-20(A) 0 - 2 /HPF [facility] Epithelial cells, squamous, ur 1-5 0 - 5 /HPF [facility] Bacteria, ur 1+(A) [facility] Culture Reflex Comment Reflex to urine culture will be performed. [facility] Urine 05/14/2024 10:1 2 AM LENS ASSORTER 05/14/2024 10:17 AM LENS ASSORTER Alexis Sawyer MD LAB URINE ORDERABLES F inal Result Performing Organization Address [facility] Co de Phone Number [facility] Department [place] [address] * (ABNORMAL) Urinalysis reflex to microscopic and culture Urine (05/14/2024 10:12 AM LENS ASSORTER) Color, ur Straw Yellow Clarity, ur Cloudy(A) Clear [facility] Specific gravity, ur 1.014 1.003 - 1.030 [facility] pH, urine 6.0 [facility] Comment: Interpretive Data ? Urine pH is affected by diet, medications, systemic acid-base disturbances, and renal tubular function. ??pH may affect urinary stone formation. ??For example, urine pH below 6.0 may help reduce the tendency for calcium phosphate stones and pH greater than 6.0 may reduce the tendency for uric acid stone formation. Source: [facility] [place] Current Interpretive Data was last revised on 2017 Protein, ur ql Negative Negative [facility] Glucose, ur ql Negative Negative [facility] Ketones, ur Negative Negative [facility] Bilirubin, ur Negative Negative [facility] Blood, ur Negative Negative [facility] Urobilinogen, ur <2.0 <2.0 mg/dL [facility] Nitrite, ur Negative Negative [facility] Leukocyte esterase, ur 3+(A) Negative [facility] UA reflex comment Reflex to microscopic UA will be performed. [facility] Urine 05/14/2024 10:1 2 AM LENS ASSORTER 05/14/2024 10:17 AM LENS ASSORTER us Alexis Sawyer MD LAB MICROBIOLOGY - GEN ERAL ORDERABLES Final Result [facility] Department [place] [address] * XR Chest 1 Vw Portable (05/14/2024 7:22 AM LENS ASSORTER) Anatomical Region Laterality Modality Body, Chest N/A Computed Radiogr aphy 05/14/2024 9:44 AM LENS ASSORTER Impressions 05/14/2024 10:36 AM LENS ASSORTER No prior examinations available for comparison. Correlation [...] Kendal Braun M.D. Narrative 05/14/2024 10:36 AM LENS ASSORTER EXAMINATION: 1 view chest radiograph Procedure Note [...] Result * Check Sample (05/14/2024 6:48 AM LENS ASSORTER) ABO Rh O Positive [facility] OTHER 05/14/2024 6:48 AM LENS ASSORTER 05/14/2024 6:55 AM LENS ASSORTER us Kenneth Vallecillo MD LAB BLOOD ORDERABLES Final Re sult [facility] [place] [address] [facility] * Neuro CT Outside Consult (05/14/2024 6:09 AM LENS ASSORTER) Anatomical Region Laterality Modality N/A Computed Tomogra phy 05/14/2024 6:35 AM LENS ASSORTER Impressions 05/14/2024 9:34 AM LENS ASSORTER No acute cervical spine fracture. The findings, conclusions and recommendations within this report do not replace the initial findings, conclusions ??and recommendations made at the facility where the study was performed based upon the imaging and clinical condition at that time. ??Comparison with the prior report and clinical history is necessary. ??The provided images may or may not represent the [place] source data set and thus may contain changes that may lower the accuracy of this second-opinion interpretation. Dictated by: Virgilio Dempsey MD The radiology attending physician has personally reviewed this study, and had reviewed and/or edited this written report and agrees with it. Electronically signed by: Evelyne Saleh M.D. Narrative 05/14/2024 9:34 AM LENS ASSORTER EXAMINATION: RADIOLOGY CONSULTATION ON OUTSIDE IMAGING STUDY STUDY INITIALLY PERFORMED: 05/14/2024 at outside [facility]. TYPE OF STUDY: Multiple CT images of [...] images may or may not represent the [place] source data set and thus may contain changes that may lower the accuracy of this second-opinion interpretation. Dictated by: Virgilio Dempsey MD The radiology attending physician has personally reviewed this study, and had reviewed and/or edited this written report and agrees with it. Electronically signed by: Evelyne Saleh M.D. Alexis Sawyer MD [facility] [place] PROCEDURES Chanelle l Result * Neuro CT Outside Reference (05/14/2024 6:04 AM LENS ASSORTER) Impressions [facility] - 05/14/2024 6:04 AM LENS ASSORTER These images are for Reference purposes only and have not been reviewed by [facility]. ??There will be no report generated by a [facility] Radiologist. Narrative [facility] - 05/14/2024 6:04 AM LENS ASSORTER EXAMINATION: ??Images For Reference Purposes Only Alexis Sawyer MD IM CT PROCEDURES Chanelle l Result [facility] * CT Body Outside Consult (05/14/2024 5:59 AM LENS ASSORTER) Anatomical Region Laterality Modality Body N/A Computed Tomogra phy 05/14/2024 6:16 AM LENS ASSORTER Impressions 05/14/2024 10:03 AM LENS ASSORTER This study was initially nominated as a consult on outside images via Outside Image Sharing Service. However, a consult was not performed because no images were included in the packet. ??If interpretation is desired, uploaded images appropriately and resubmitted for consultation. Accordingly, there will be no separate report of this study generated by a [facility] Radiologist. Dictated by: Kavitha Ba MD The radiology attending physician has personally reviewed this study, and had reviewed and/or edited this written report and agrees with it. Electronically signed by: Kendal Braun M.D. Narrative 05/14/2024 10:03 AM LENS ASSORTER EXAMINATION: ??CHANGE CONSULT ON OUTSIDE IMAGES TO [...] report of this study generated by a [facility] Radiologist. Dictated by: Kavitha Ba MD The radiology attending physician has personally reviewed this study, and had reviewed and/or edited this written report and agrees with it. Electronically signed by: Kendal Braun M.D. Alexis Sawyer MD IMG CT PROCEDURES Chanelle l Result * XR Outside Reference (05/14/2024 5:56 AM LENS ASSORTER) Impressions [facility] - 05/14/2024 5:56 AM LENS ASSORTER These images are for Reference purposes only and have not been reviewed by [facility]. ??There will be no report generated by a [facility] Radiologist. Narrative [facility] - 05/14/2024 5:56 AM LENS ASSORTER EXAMINATION: ??Images For Reference Purposes Only Alexis Saweyr MD IMG XR PROCEDURES Chanelle l Result Performing Organization Address [facility] Co de Phone Number [facility] * XR Outside Reference (05/14/2024 5:48 AM LENS ASSORTER) Impressions [facility] - 05/14/2024 5:48 AM LENS ASSORTER These images are for Reference purposes only and have not been reviewed by [facility]. ??There will be no report generated by a [facility] Radiologist. Narrative [facility] - 05/14/2024 5:48 AM LENS ASSORTER EXAMINATION: ??Images For Reference Purposes Only Result [facility] Alexis Sawyer MD IMG XR PROCEDURES Chanelle l Result Performing Organization Address [facility] de Phone Number [facility] * CT Body Outside Reference (05/14/2024 5:46 AM LENS ASSORTER) Impressions [facility] - 05/14/2024 5:46 AM LENS ASSORTER These images are for Reference purposes only and have not been reviewed by [facility]. ??There will be no report generated by a [facility] Radiologist. Narrative [facility] - 05/14/2024 5:46 AM LENS ASSORTER EXAMINATION: ??Images For Reference Purposes Only Result [facility] Alexis Sawyer MD IMG CT PROCEDURES Chanelle l Result Performing Organization Address [facility] de Phone Number [facility] * Neuro CT Outside Reference (05/14/2024 5:44 AM LENS ASSORTER) Impressions [facility] - 05/14/2024 5:44 AM LENS ASSORTER These images are for Reference purposes only and have not been reviewed by [facility]. ??There will be no report generated by a [facility] Radiologist. Narrative [facility] - 05/14/2024 5:44 AM LENS ASSORTER EXAMINATION: ??Images For Reference Purposes Only Result [facility] Alexis Sawyer MD IMG CT PROCEDURES Chanelle l Result [facility] * (ABNORMAL) eGFR (05/14/2024 5:35 AM LENS ASSORTER) Pathologist [facility] eGFR 42(L) >=60 mL/min/1. 73 m2 Comment: [...] last reviewed 2021. Blood 05/14/2024 5:35 AM LENS ASSORTER 05/14/2024 5:51 AM LENS ASSORTER us Alexis Sawyer MD LAB BLOOD ORDERABLES F inal Result [facility] [place] [address] * (ABNORMAL) Differential, auto (05/14/2024 5:35 AM LENS ASSORTER) Neutrophil abs 15.6(H) 1.5 - 6.5 K/cumm Imm gran abs 0.1 0.0 - 0.1 K/cumm [facility] Lymphocyte abs 1.6 0.8 - 3.3 K/cumm [facility] Monocyte abs 1.4(H) 0.2 - 0.8 K/cumm [facility] Eosinophil abs 0.1 0.0 - 0.5 K/cumm [facility] Basophil abs 0.1 0.0 - 0.1 K/cumm [facility] Neutrophil pct 83.1 % [facility] Comment: Interpretive Data Percent cell count reference ranges are not reported, since discordance with absolute values may lead to misinterpretation of CBC data. Current Interpretive Data was last revised on 2017. Imm gran pct 0.6 % [facility] Comment: Interpretive Data Percent cell count reference ranges are not reported, since discordance with absolute values may lead to misinterpretation of CBC data. Current Interpretive Data was last revised on 2017. Lymphocyte pct 8.3 % [facility] Comment: Interpretive Data Percent cell count reference ranges are not reported, since discordance with absolute values may lead to misinterpretation of CBC data. Current Interpretive Data was last revised on 2017. Monocyte pct 7.2 % [facility] Comment: Interpretive Data Percent cell count reference ranges are not reported, since discordance with absolute values may lead to misinterpretation of CBC data. Current Interpretive Data was last revised on 2017. Eosinophil pct 0.3 % [facility] Comment: Interpretive Data Percent cell count reference ranges are not reported, since discordance with absolute values may lead to misinterpretation of CBC data. Current Interpretive Data was last revised on 2017. Basophil pct 0.5 % [facility] Comment: Interpretive Data Percent cell count reference ranges are not reported, since discordance with absolute values may lead to misinterpretation of CBC data. Current Interpretive Data was last revised on 2017. Blood 05/14/2024 5:35 AM LENS ASSORTER 05/14/2024 6:20 AM LENS ASSORTER us Alexis Sawyer MD LAB BLOOD ORDERABLES F inal Result Performing Organization Address [facility] [place] [place] [address] * Type and screen (05/14/2024 5:35 AM LENS ASSORTER) Trey, indirect Negative ABO Rh O Positive [facility] Blood 05/14/2024 5:35 AM LENS ASSORTER 05/14/2024 5:45 AM LENS ASSORTER Narrative [facility] - 05/14/2024 6:53 AM LENS ASSORTER Has the patient had Daratumumab or Isatuximab in the past 6 months?->Unknown Alexis Sawyer MD LAB BLOOD BANK TEST OR DERABLES Final Result Performing Organization Address [facility] [place] [address] * aPTT (05/14/2024 5:35 AM LENS ASSORTER) aPTT 32 28 - 38 sec Comment: Interpretive Data Heparin therapeutic range: 66.0 - 100.0 seconds. Range based on correlation with therapeutic heparin activity range of 0.3 - 0.7 Units/mL. Current interpretive data was last revised on 2023. Blood 05/14/2024 5:35 AM LENS ASSORTER 05/14/2024 5:57 AM LENS ASSORTER Alexis Sawyer MD LAB BLOOD ORDERABLES F inal Result Performing Organization Address [facility] de Phone Number [facility] [place] [address] * Protime-INR (05/14/2024 5:35 AM LENS ASSORTER) PT 12.2 9.7 - 13.0 sec INR 1.13 0.90 - 1.20 [facility] Comment: Interpretive data Oral anticoagulant therapeutic ranges: Venous thromboembolism prophylaxis or treatment: 2.0-3.0 CARDIOLOGY Standard range: 2.0-3.0 High-intensity range: 2.5-3.5 Refer to indication-specific guidelines for appropriate target ranges for prosthetic heart valve replacement. Current interpretive data was last revised on 2019. Blood 05/14/2024 5:35 AM LENS ASSORTER 05/14/2024 5:57 AM LENS ASSORTER us Alexis Sawyer MD LAB BLOOD ORDERABLES F inal Result [facility] Department [place] [address] * (ABNORMAL) Comprehensive metabolic panel (05/14/2024 5:35 AM LENS ASSORTER) Sodium 134(L) 135 - 145 mmol/L Potassium, pl 4.7 3.3 - 4.9 mmol/L [facility] Chloride 101 97 - 110 mmol/L [facility] CO2 23 22 - 32 mmol/L [facility] Anion gap 10 2 - 15 mmol/L [facility] BUN 34(H) 6 - 25 mg/dL [facility] Creatinine 1.29(H) 0.60 - 1.10 mg/dL [facility] Glucose 149 70 - 199 mg/dL [facility] Comment: Interpretive Data Fasting glucose >/= 126 [...] 2022. Calcium 8.8 8.5 - 10.3 mg/dL [facility] Bilirubin, total 0.7 0.1 - 1.2 mg/dL [facility] Protein, pl 7.3 6.5 - 8.5 g/dL [facility] Albumin 3.9 3.5 - 5.0 g/dL [facility] Alk phos 134(H) 40 - 130 Units/L [facility] ALT 29 7 - 45 Units/L [facility] AST 39 10 - 45 Units/L [facility] Blood 05/14/2024 5:35 AM LENS ASSORTER 05/14/2024 5:51 AM LENS ASSORTER Alexis Sawyer MD LAB BLOOD ORDERABLES F inal Result Performing Organization Address City/[facility] Co de Phone Number [facility] [place] [address] * (ABNORMAL) CBC with auto differential (05/14/2024 5:35 AM LENS ASSORTER) WBC 18.8(H) 3.8 - 9.9 K/cumm Hgb 12.6 11.9 - 15.5 g/dL [facility] Hct 38.6 35.6 - 45.5 % [facility] Plt 274 150 - 400 K/cumm [facility] MPV 9.8 9.1 - 12.3 fL [facility] RBC 3.96 3.90 - 5.20 M/cumm [facility] MCV 97.5(H) 81.3 - 96.4 fL [facility] MCH 31.8 27.1 - 33.3 pg [facility] MCHC 32.6 32.3 - 35.7 g/dL [facility] RDW CV 14.2 11.1 - 14.9 % [facility] RDW SD 51.6(H) 35.7 - 48.1 fL [facility] NRBC abs 0.00 0.00 - 0.01 K/cumm [facility] Blood 05/14/2024 5:35 AM LENS ASSORTER 05/14/2024 6:20 AM LENS ASSORTER Alexis Sawyer MD LAB BLOOD ORDERABLES F inal Result Performing Organization Address City/[facility]/ZIP Co de Phone Number [facility] [place] [address] documented in this encounter Visit Diagnoses Diagnosis [...] 05/16/24 at 1200 Given 05/20/2024 5:35 PM LENS ASSORTER 1,000 mg Given 05/20/2024 6:38 AM LENS ASSORTER 1,000 mg Given 05/20/2024 12:07 AM LENS ASSORTER 1,000 mg acetaminophen (TYLENOL) tablet 650 mg 650 mg, oral, Every 6 hours PRN, 1st line for pain, Starting on 05/14/24 at 1758 Given 05/16/2024 4:10 AM LENS ASSORTER 650 mg Given 05/15/2024 9:04 PM LENS ASSORTER 650 mg Given 05/15/2024 9:38 AM LENS ASSORTER 650 mg amLODIPine (NORVASC) tablet 10 mg 10 mg, oral, Daily, First dose on 05/14/24 at 1830 Given 05/20/2024 8:29 AM LENS ASSORTER 10 mg Given 05/19/2024 8:29 AM LENS ASSORTER 10 mg Given 05/18/2024 9:01 AM LENS ASSORTER 10 mg aspirin enteric coated tablet 81 mg 81 mg, oral, Daily, First dose on Thu05/18/24 at 0900, Do not crush, chew, cut, dissolve, open or otherwise manipulate tablet/capsule. Given 05/20/2024 8:29 AM LENS ASSORTER 81 mg Given 05/19/2024 8:29 AM LENS ASSORTER 81 mg Given 05/18/2024 9:01 AM LENS ASSORTER 81 mg atorvastatin (LIPITOR) tablet 10 mg 10 mg, oral, Daily, First dose on 05/14/24 at 1830 Given 05/20/2024 8:29 AM LENS ASSORTER 10 mg Given 05/19/2024 8:29 AM LENS ASSORTER 10 mg Given 05/18/2024 9:01 AM LENS ASSORTER 10 mg bisacodyL (DULCOLAX) suppository 10 mg 10 mg, rectal, Once, On Thu05/18/24 at 0730, For 1 dose, Indications: constipationIndications:constipat ion Given 05/18/2024 9:02 AM LENS ASSORTER 10 mg bisacodyL (DULCOLAX) suppository 10 mg 10 mg, rectal, Once, On Obdulia 05/19/24 at 0700, For 1 dose, Indications: constipationIndications:constipat ion Given 05/19/2024 8:29 AM LENS ASSORTER 10 mg Carrier Fluids for Secondary Infusion [...] Hospital Acquired New Bag 05/17/2024 8:53 AM LENS ASSORTER 2,000 mg 240 mL/hr New Bag 05/16/2024 8:13 PM LENS ASSORTER 2,000 mg 240 mL/hr New Bag 05/16/2024 8:28 AM LENS ASSORTER 2,000 mg 240 mL/hr cephalexin (KEFLEX) capsule 250 mg 250 mg, oral, 3 times daily, First dose on Thu05/17/24 at 1400, For 5 days, Indications: Urinary Tract/Genitourinary InfectionIndications:Urinary Tract/Genitourinary Infection Given 05/20/2024 3:43 PM LENS ASSORTER 250 mg Given 05/20/2024 8:29 AM LENS ASSORTER 250 mg Given 05/19/2024 8:53 PM LENS ASSORTER 250 mg cholecalciferol (VITAMIN D-3) capsule 1,000 Units 1,000 Units, oral, Daily, First dose on Obdulia 05/19/24 at 1415, Each capsule contains 1,000 units (25 mcg) of cholecalciferol. Given 05/20/2024 8:29 AM LENS ASSORTER 1,000 Units Given 05/19/2024 2:01 PM LENS ASSORTER 1,000 Units citalopram (CeleXA) tablet 20 mg 20 mg, oral, Daily, First dose on 05/14/24 at 1830 Given 05/20/2024 8:30 AM LENS ASSORTER 20 mg Given 05/19/2024 8:29 AM LENS ASSORTER 20 mg Given 05/18/2024 9:02 AM LENS ASSORTER 20 mg cyclobenzaprine (FLEXERIL) tablet 10 mg 10 mg, oral, 3 times daily PRN, muscle spasms, Starting on 05/14/24 at 1758, Indications: Muscle SpasmIndications:Muscle Spasm Given 05/15/2024 6:05 AM LENS ASSORTER 10 mg Given 05/14/2024 6:10 PM LENS ASSORTER 10 mg dextrose (D10W) 10% bolus 250 [...] 2100, Indications: constipationIndications:constipation Given 05/19/2024 8:53 PM LENS ASSORTER 100 mg Given 05/19/2024 8:29 AM LENS ASSORTER 100 mg Given 05/18/2024 8:41 PM LENS ASSORTER 100 mg enoxaparin (LOVENOX) syringe 30 mg 30 mg, subcutaneous, Every 12 hours scheduled, First dose on 05/14/24 at 2100, Indications: Deep Vein Thrombosis PreventionIndications:Deep Vein Thrombosis Prevention Given 05/17/2024 8:53 AM LENS ASSORTER 30 mg Left Upper Abdomen Given 05/16/2024 8:13 PM LENS ASSORTER 30 mg Le ft Upper Arm Given 05/16/2024 8:28 AM LENS ASSORTER 30 mg Le ft Lower Abdomen fentaNYL (SUBLIMAZE) preservative free injection 50 mcg 50 mcg, intravenous, Once, On 05/14/24 at 0955, For 1 dose Given 05/14/2024 9:57 AM LENS ASSORTER 50 mcg fentaNYL (SUBLIMAZE) preservative free injection 50 mcg 50 mcg, intravenous, Once, On 05/14/24 at 1648, For 1 dose Given 05/14/2024 4:48 PM LENS ASSORTER 50 mcg glucagon injection 1 mg 1 [...] min for adults Given 05/14/2024 5:14 PM LENS ASSORTER 2.5 mg haloperidol (HALDOL) injection 5 mg 5 mg, intravenous, Once, On 05/14/24 at 0632, For 1 dose, If administered IV push, administer over 5 min for adults Given 05/14/2024 6:32 AM LENS ASSORTER 5 mg haloperidol (HALDOL) injection 5 mg 5 mg, intravenous, Once, On 05/14/24 at 0955, For 1 dose, If administered IV push, administer over 5 min for adults Given 05/14/2024 9:57 AM LENS ASSORTER 5 mg haloperidol (HALDOL) injection 5 mg 5 mg, intravenous, Once, On 05/14/24 at 1511, For 1 dose, If administered IV push, administer over 5 min for adults Given 05/14/2024 3:10 PM LENS ASSORTER 5 mg heparin 5,000 unit/mL injection 5,000 Units 5,000 Units, subcutaneous, Every 8 hours scheduled, First dose on Thu05/17/24 at 2100, Indications: Deep Vein Thrombosis PreventionIndications:Deep Vein Thrombosis Prevention Given 05/20/2024 3:00 PM LENS ASSORTER 5,000 Units Left Lower Abdomen Given 05/20/2024 6:38 AM LENS ASSORTER 5,000 Units L eft Lower Abdomen Given 05/19/2024 9:08 PM LENS ASSORTER 5,000 Units L eft Lower Abdomen HYDROmorphone (DILAUDID) injection 0.2 mg 0.2 mg, intravenous, Administer over 2 Minutes, Once, On Thu05/16/24 at 0130, For 1 dose Given 05/16/2024 1:00 AM LENS ASSORTER 0.2 mg HYDROmorphone (DILAUDID) injection 0.2 mg 0.2 mg, intravenous, Administer over 2 Minutes, Once, On Thu05/16/24 at 0915, For 1 dose Given 05/16/2024 9:08 AM LENS ASSORTER 0.2 mg HYDROmorphone (DILAUDID) injection 0.2 mg 0.2 mg, intravenous, Administer over 2 Minutes, Once, On Thu05/17/24 at 2200, For 1 dose Given 05/17/2024 9:42 PM LENS ASSORTER 0.2 mg HYDROmorphone (DILAUDID) injection 0.2 mg 0.2 mg, intravenous, Administer over 2 Minutes, Once, On Obdulia 05/19/24 at 1945, For 1 dose Given 05/19/2024 7:14 PM LENS ASSORTER 0.2 mg HYDROmorphone (DILAUDID) injection 0.5 mg 0.5 mg, intravenous, Administer over 2 Minutes, Once, On 05/14/24 at 1404, For 1 dose Given 05/14/2024 2:04 PM LENS ASSORTER 0.5 mg HYDROmorphone (DILAUDID) tablet 2 mg 2 mg, oral, Every 4 hours PRN, 2nd line for pain, Starting on Obdulia 05/19/24 at 2217, Indications: PainIndications:Pain Given 05/20/2024 3:00 PM LENS ASSORTER 2 mg Given 05/19/2024 11:29 PM LENS ASSORTER 2 mg insulin lispro (HumaLOG, ADMELOG) 100 [...] Diabetes MellitusIndications:Diabetes Mellitus Given 05/17/2024 12:14 PM LENS ASSORTER 1 Units Left Lower Abdomen Given 05/16/2024 6:15 PM LENS ASSORTER 1 Units Le ft Upper Arm Given 05/16/2024 2:19 PM LENS ASSORTER 1 Units Le ft Upper Arm ketorolac (TORADOL) 15 mg/mL injection 15 mg 15 mg, intravenous, Once, On 05/14/24 at 0654, For 1 dose, For Adult IV push, administer over 15 seconds Given 05/14/2024 7:16 AM LENS ASSORTER 15 mg ketorolac (TORADOL) 15 mg/mL injection 15 mg 15 mg, intravenous, Every 8 hours, First dose on 05/16/24 at 1600, For 3 doses, For Adult IV push, administer over 15 seconds Given 05/17/2024 8:53 AM LENS ASSORTER 15 mg Given 05/16/2024 11:11 PM LENS ASSORTER 15 mg Given 05/16/2024 3:17 PM LENS ASSORTER 15 mg levothyroxine (SYNTHROID) tablet 137 mcg 137 mcg, oral, Daily (early AM), First dose (after last modification) on 05/15/24 at 0600, Administer on an empty stomach, preferably 30 minutes before breakfast. Take 4 hours apart from antacids, iron and calcium products. Separate from tube feeds, if applicable. Given 05/20/2024 6:38 AM LENS ASSORTER 137 mcg Given 05/19/2024 6:05 AM LENS ASSORTER 137 mcg Given 05/18/2024 5:51 AM LENS ASSORTER 137 mcg lidocaine (ASPERCREME) 4 % patch 1 patch 1 patch, transdermal, Administer over 12 Hours, Every 24 hours, First dose on 05/15/24 at 1500, Apply to affected area: abdomen Medication Applied 05/17/2024 3:16 PM LENS ASSORTER 1 patch Other (Comment) Medication Applied 05/16/2024 3:18 PM LENS ASSORTER 1 patch Other (Comment) Medication Applied 05/15/2024 2:48 PM LENS ASSORTER 1 patch Back lidocaine (LIDODERM) 5 % patch 1 patch 1 patch, transdermal, Administer over 12 Hours, Every 24 hours, First dose (after last reorder) on Thu05/18/24 at 1530, Do not cover the holes on the top side of the patch., Apply to affected area: abdomen Medication Applied 05/20/2024 3:43 PM LENS ASSORTER 1 patch Other (Comment) Medication Applied 05/19/2024 11:53 AM LENS ASSORTER 1 patch Other (Comment) Medication Applied 05/18/2024 1:52 PM LENS ASSORTER 1 patch Other (Comment) LORazepam (ATIVAN) tablet 0.5 mg 0.5 mg, oral, Every 12 hours PRN, anxiety, Starting on Obdulia 05/19/24 at 1157 Given 05/19/2024 4:30 PM LENS ASSORTER 0.5 mg LORazepam (ATIVAN) tablet 0.5 mg 0.5 mg, oral, 2 times daily PRN, anxiety, Starting on Thu05/20/24 at 0400 Given 05/20/2024 5:38 PM LENS ASSORTER 0.5 mg methocarbamoL (ROBAXIN) tablet 500 mg 500 mg, oral, 3 times daily, First dose on Thu05/16/24 at 0915 Given 05/20/2024 3:43 PM LENS ASSORTER 500 mg Given 05/20/2024 8:29 AM LENS ASSORTER 500 mg Given 05/19/2024 8:53 PM LENS ASSORTER 500 mg morphine injection 2 mg 2 mg, intravenous, Administer over 4 Minutes, Once, On 05/14/24 at 0621, For 1 dose Given 05/14/2024 6:22 AM LENS ASSORTER 2 mg OLANZapine (ZyPREXA ZYDIS) disintegrating tablet 5 mg 5 mg, sublingual, Once, On Thu05/18/24 at 1515, For 1 dose, SENDING ONE DOSE TO PT SPECIFIC BIN Given 05/18/2024 2:49 PM LENS ASSORTER 5 mg OLANZapine (ZyPREXA) 2.5 mg in sterile water 0.5 mL (5 mg/mL) syringe 2.5 mg, intravenous, Administer over 1 Minutes, Once, On Thu05/17/24 at 0630, For 1 dose, Reconstitute 10 mg vial with 2.1 mL SWFI. Resulting solution is ~5 mg/mL. Use immediately (within 1 hour) following reconstitution. Given 05/17/2024 5:56 AM LENS ASSORTER 2.5 mg OLANZapine (ZyPREXA) 2.5 mg in sterile water 0.5 mL (5 mg/mL) syringe 2.5 mg, intravenous, Administer over 1 Minutes, Once, On Obdulia 05/19/24 at 1215, For 1 dose, Reconstitute 10 mg vial with 2.1 mL SWFI. Resulting solution is ~5 mg/mL. Use immediately (within 1 hour) following reconstitution. Given 05/19/2024 11:53 AM LENS ASSORTER 2.5 mg OLANZapine (ZyPREXA) 5 mg in sterile water 1 mL (5 mg/mL) syringe 5 mg, intravenous, Administer over 1 Minutes, Once, On Thu05/17/24 at 0500, For 1 dose, Reconstitute 10 mg vial with 2.1 mL SWFI. Resulting solution is ~5 mg/mL. Use immediately (within 1 hour) following reconstitution. Given 05/17/2024 4:24 AM LENS ASSORTER 5 mg oxyCODONE (ROXICODONE) tablet 2.5 mg 2.5 mg, oral, Every 4 hours PRN, 2nd line for pain, Starting on 05/14/24 at 1758, Indications: PainIndications:Pain Given 05/15/2024 5:39 PM LENS ASSORTER 2.5 mg Given 05/15/2024 1:44 PM LENS ASSORTER 2.5 mg Given 05/15/2024 9:38 AM LENS ASSORTER 2.5 mg oxyCODONE (ROXICODONE) tablet 5 mg 5 mg, oral, Every 4 hours PRN, 2nd line for pain, Starting on 05/15/24 at 1913, Indications: PainIndications:Pain Given 05/19/2024 5:54 PM LENS ASSORTER 5 mg Given 05/19/2024 2:01 PM LENS ASSORTER 5 mg Given 05/19/2024 10:06 AM LENS ASSORTER 5 mg oxyCODONE (ROXICODONE) tablet 5 mg 5 mg, oral, Once, On Thu05/18/24 at 2000, For 1 dose, Indications: PainIndications:Pain Given 05/18/2024 7:29 PM LENS ASSORTER [address] (PROTONIX) extended release tablet 40 mg 40 mg, oral, Daily, First dose on 05/14/24 at 1830, Do not crush, chew, cut, dissolve, open or otherwise manipulate tablet/capsule., Indications: Stress Ulcer ProphylaxisIndications:Stress Ulcer Prophylaxis Given 05/20/2024 8:30 AM LENS ASSORTER 40 mg Given 05/19/2024 8:29 AM LENS ASSORTER 40 mg Given 05/18/2024 9:02 AM LENS ASSORTER 40 mg polyethylene glycol (MIRALAX) packet 17 g 17 g, oral, Daily, First dose on Thu05/18/24 at 0900, Indications: constipationIndications:constipation Given 05/19/2024 8:29 AM LENS ASSORTER 17 g Given 05/18/2024 9:01 AM LENS ASSORTER 17 g QUEtiapine (SEROquel) tablet 25 mg 25 mg, oral, Once, On 05/15/24 at 1445, For 1 dose Given 05/15/2024 2:48 PM LENS ASSORTER 25 mg QUEtiapine (SEROquel) tablet 50 mg 50 mg, oral, Nightly, First dose on 05/14/24 at 2100, Indications: Generalized Anxiety DisorderIndications:Generalized Anxiety Disorder Given 05/19/2024 8:53 PM LENS ASSORTER 50 mg Given 05/18/2024 7:29 PM LENS ASSORTER 50 mg Given 05/17/2024 9:00 PM LENS ASSORTER 50 mg QUEtiapine (SEROquel) tablet 50 mg 50 mg, oral, Once, On Thu05/18/24 at 2230, For 1 dose Given 05/18/2024 10:15 PM LENS ASSORTER 50 mg QUEtiapine (SEROquel) tablet 50 mg 50 mg, oral, Once, On Obdulia 05/19/24 at 2300, For 1 dose Given 05/19/2024 10:33 PM LENS ASSORTER 50 mg senna-docusate (PERICOLACE) 8.6-50 mg per tablet 1 tablet 1 tablet, oral, 2 times daily, First dose on 05/14/24 at 2100, Hold for diarrhea., Indications: constipationIndications:constipation Given 05/19/2024 8:53 PM LENS ASSORTER 1 table t Given 05/19/2024 8:29 AM LENS ASSORTER 1 tablet Given 05/18/2024 8:41 PM LENS ASSORTER 1 tablet sodium chloride 0.9% bolus 500 mL 500 mL, intravenous, Once, On Thu05/14/24 at 2330, For 1 dose New Bag 05/14/2024 11:14 PM LENS ASSORTER 500 mL sodium chloride 0.9% bolus 500 mL 500 mL, intravenous, at 125 mL/hr, Administer over 4 Hours, Once, On e 05/17/24 at 0130, For 1 dose New Bag 05/17/2024 12:53 AM LENS ASSORTER 500 mL 125 mL/hr sodium chloride 0.9% flush 0.5-20 mL 0.5-20 mL, intra-catheter, Every 8 hours scheduled (alternate), First dose on 05/14/24 at 1830, Flush volume based on line type and size. Given 05/17/2024 8:54 AM LENS ASSORTER 10 mL Given 05/16/2024 3:22 PM LENS ASSORTER 10 mL Given 05/16/2024 8:29 AM LENS ASSORTER 10 mL sodium chloride 0.9% flush 0.5-20 mL 0.5-20 mL, intra-catheter, Every 8 hours scheduled (alternate), First dose on Thu05/18/24 at 0000, Flush volume based on line type and size. Given 05/20/2024 12:09 AM LENS ASSORTER 10 mL Given 05/19/2024 3:26 PM LENS ASSORTER 10 mL Given 05/19/2024 8:33 AM LENS ASSORTER 10 mL sodium chloride 0.9% flush 0.5-20 [...] glass., Indications: hyperkalemiaIndications:hyperkalemia Given 05/16/2024 7:31 AM LENS ASSORTER 5 g vancomycin 1500 mg/515 mL in sodium chloride 0.9% (premix) 1,500 mg 1,500 mg (rounded from 1,510.5 mg = 15 mg/kg ? 100.7 kg), intravenous, Administer over 90 Minutes, Once, On 05/14/24 at 0751, For 1 dose, Indications: Pneumonia, Hospital AcquiredIndications:Pneumonia, Hospital Acquired New Bag 05/14/2024 8:02 AM LENS ASSORTER 1,500 mg documented in this encounter Discontinued Medications Medication Sig Discontinue Reason Start Date End Da te risperiDONE (RisperDAL) 0.25 mg tablet Stop Taking at Discharge 08/02/2022 024 HYDROcodone-acetaminophen (NORCO) 5-325 mg per tablet Stop Taking at Discharge 08/11/2023 documented as of this encounter Active and Recently Administered Medications Times are shown in [facility]TER. Scheduled Medication Order 05/18/2024 05/19/2024 05/20/2024 acetaminophen [...] Bhatti RN) 0605 (Given - Provider: Fe Bhatit RN) 0638 (Given - Provider: Mandie Holly [...] Aguirre RN) 0757 (Not Given - Provider: aMritza Rene RN - Reason: Order parameters not [...] Indications: constipation 0901 (Given - Provider: Marion Lamb)2040 (Given - Provider: Fe Bhatti, KHLOE) 0829 [...] COVID: Suspected 05/14/2024 05/14/2024 05/14/2024 11:36 AM LENS ASSORTER Rhino/Enterovirus 05/14/2024 05/14/2024 05/21/2024 3:05 AM LENS ASSORTER documented as of this encounter Care Teams Unit Technician Relationship Specialty Start Date End Date Cedric Nguyen MD [address] [place] [address] PCP - General 09/17/16 documented as of this encounter
--- OUTSIDE RECORDS SUMMARY | 2024-05-24 20:53 | XMS_ITS | Encounter Summary ---
Author Organization [facility] Address [address] [place] [address] Phone Care Team Providers Care Conservation Enforcement Officer Name Role Phone Cedric Nguyen MD Primary Care Provide r Reason for Visit * Reason Comments Follow-up Encounter Details Date Type Department Care Team (Late st Contact Info) Description 08/14/2020 1:15 PM DB2 SYSTEMS PROGRAMMER Office Visit [facility] [address] [facility] 6th Floor [address] [place] [address] Elana Oliver NP [address] [place] [address] Late onset Alzheimer's disease without behavioral disturbance [...] Comments Blood Pressure 135/69 08/14/2020 1:14 PM DB2 SYSTEMS PROGRAMMER Pulse 91 08/14/2020 1:14 PM DB2 SYSTEMS PROGRAMMER Temperature 35.9 ??C (96.7 ??F) 08/14/2020 1:14 PM CS T Respiratory Rate - - Oxygen Saturation 94% 08/14/2020 1:14 PM DB2 SYSTEMS PROGRAMMER Inhaled Oxygen Concentration - - Weight 79.6 kg (175 lb 8 oz) 08/14/2020 1:14 PM DB2 SYSTEMS PROGRAMMER Height 163.8 cm (5' 4.5 ) 08/14/2020 1:14 PM DB2 SYSTEMS PROGRAMMER Body Mass Index 29.66 08/14/2020 1:14 PM DB2 SYSTEMS PROGRAMMER documented in this encounter Patient Instructions * Patient Instructions* Elana Oliver, REHABILITATION THERAPY AIDE - 08/14/2020 1:15 PM DB2 SYSTEMS PROGRAMMER Images from the original note were not [...] mild to moderate memory loss. Please contact or call [phone]. We discussed the importance of physical activity, [...] Program, from The Alzheimer's Association, please call [phone], or you can register online [email or web address]. 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 Legal: No legal concerns were discussed today. RESOURCES FOR ADDITIONAL INFORMATION AND SUPPORT Opportunities to participate in research can be found at: trialmatch.alz.org Access TrialMatch online. For additional assistance, email or call [phone] (press 1 for clinical trials). ClinicalTrials.gov is a resource provided by the U.S. National Library of Medicine. You can look upclinical trials (research opportunities) online At clinicaltrials.gov Alzheimer's Association [facility] Chapter: ; (toll free); http://www.alz.org, The Alzheimer's Association 29/12 Helpline provides reliable information and support to all those who need assistance. Call toll-free anytime day or night at . Caregiver Guide: tips for caregivers of people with Alzheimer's dementia, www.jordy.nih.gov/Alzheimers /Publication/Lbtlwl-lvhcix-eiorozgjjk-disease/about-guide [facility], [address] [place]. [address], , Occupational Therapists who offers caregiver training, family support, and in home safety assessments at no cost. Memorycarehs.org [facility] on [facility] (serving [facility]) http://[facility].[place].[facility]/government/hslaaa.html [facility] on [facility] [email or web address] The best way to reach our team is via My Chart, this is a secure way for us to communicate about your health care. Please call The My Chart Support Desk: [phone] or [phone] to obtain a link. If you prefer to communicate by phone, please call our nurse at [phone], option 4, leave a message, this voicemail is checked several times per day. If you need to contact our Health Information Tech, please contact Maricruz Coburn [phone]. 2 SYSTEMS PROGRAMMER 2 SYSTEMS PROGRAMMER 2 SYSTEMS PROGRAMMER documented in this encounter Progress Notes * Elana Oliver NP - 08/14/2020 1:15 PM CST Images from the original note were not included. [facility] OFFICE VISIT SHELBIE Lara (Nurse Practitioner) [facility] Department of Neurology Patient Name: PATRICIA HAMLIN Medical Record Number (MRN): [id number] Date of (): 1940 Encounter Date: 08/14/2020 [...] mcg tablet, Take 112 mcg by mouth recruit instructor before breakfast,Disp: , Rfl: ??? omeprazole (PriLOSEC) 20 mg capsule, Take 20 mg by mouth daily, Disp: , Rfl: ??? qegfhesdjxgb-Vn-mlpk-minerals tablet, Take by mouth, Disp: , Rfl: [...] Gatherings with Friends and Family: ??? Attends Jewish Services: ??? Active Member of Clubs or [...] last visit. Medical Records Review: I reviewed [facility] notes and prior Neuropsychometric testing scores. [facility] Neurobehavioral Status Exam Results 08/01/2019 08/14/2020 Repository ICF signed? No No Verbal Fluency Total Score (No Data) 12 [place] Naming (15 item) Total Score 13 13 [...] Sensation was intact to light touch. Coordination Dkrwtm-yuhv-nfnysm testing was normal. Reflexes Reflexes were symmetric at the biceps, brachioradialis and knees. Gait Gait was slow, decreased arm swing and step height She was fluent throughout the interview and examination. NEUROBEHAVIORAL TESTING REPORT On formal neurobehavioral testing, which took from 3640-3759 , scores were in the mild to moderately impaired range on tests of semantic memory ([place] Naming, verbal fluency). Scores were in the [...] Verbal Fluency Total Score (No Data) 12 [place] Naming (15 item) Total Score 13 13 [...] (No Data) (No Data) Clinical Dementia Rating: [facility] CDR/DIAGNOSIS NEW 08/01/2019 08/14/2020 Repository ICF signed? [...] mild to moderate memory loss. Please contact or call [phone]. We discussed the importance of physical activity, [...] Program, from The Alzheimer's Association, please call [phone], or you can register online [email or web address]. 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 Legal: No legal concerns were discussed today. RESOURCES FOR ADDITIONAL INFORMATION AND SUPPORT Opportunities to participate in research can be found at: trialmatch.Quantitative Medicine.org Access TrialKuotustch online. For additional assistance, email TrialMatch@Quantitative Medicine.org or call [phone] (press 1 for clinical trials). ClinicalTrials.gov is a resource provided by the U.S. National Library of Medicine. You can look upclinical trials (research opportunities) online At clinicaltrials.gov Alzheimer's Association [facility] Chapter: ; (toll free); http://www.alz.org, The Alzheimer's Association 29/12 Helpline provides reliable information and support to all those who need assistance. Call toll-free anytime day or night at . Caregiver Guide: tips for caregivers of people with Alzheimer's dementia, www.jordy.nih.gov/Alzheimers /Publication/Ghvfrq-yrfgaf-ynrjlhffir-disease/about-guide [facility], [address] [place]. [address], , Occupational Therapists who offers caregiver training, family support, and in home safety assessments at no cost. Memorycarehs.org [facility] on Aging (serving [facility]) http://[facility].[place].org/government/hslaaa.html [facility] on Aging (serving [facility] [email or web address] The best way to reach our team is via My Chart, this is a secure way for us to communicate about your health care. Please call The My Chart Support Desk: [phone] or [phone] to obtain a link. If you prefer to communicate by phone, please call our nurse at [phone], option 4, leave a message, this voicemail is checked several times per day. If you need to contact our Health Information Tech, please contact Maricruz Coburn [phone]. I spent 3116-3016 minutes,face to face with Ms. Hamlin and [...] documentation in the EMR. Elana Oliver, RAJAT-C [facility] of [address], [address] [place] [address] 2 SYSTEMS PROGRAMMER documented in this encounter Plan of Treatment [...] 08/27/2022 added in this encounter Care Teams Conservation Enforcement Officer Relationship Specialty Start Date End Date Cedric Nguyen MD [address] [place], [place] [id number] PCP - General 09/17/16 documented as of this encounter
--- OUTSIDE RECORDS SUMMARY | 2024-05-24 20:53 | XMS_ITS | Encounter Summary ---
Author Organization [facility] Address [address] [place] [address] Phone Care Team Providers Care Account Developer Name Role Phone Cedric Nguyen MD Primary Care Provide r Encounter Details Date Type Department Care Team (Late st Contact Info) Description 05/16/2024 6:50 AM CIVIL ENGINEERING DRAFTSPERSON Ancillary Procedure [facility] IP [address] [place] [address] Social History Tobacco Use Types [...] DUPLEX BILATERAL IP Routine 05/16/2024 1:16 PM CIVIL ENGINEERING DRAFTSPERSON documented in this encounter Results * US Carotids Duplex Bilateral (05/16/2024 1:16 PM CIVIL ENGINEERING DRAFTSPERSON) Anatomical Region Laterality Modality Vascular Bilateral Ultrasound 05/16/2024 11:5 7 AM CIVIL ENGINEERING DRAFTSPERSON Narrative 05/18/2024 12:28 AM CIVIL ENGINEERING DRAFTSPERSON [facility] - Department of Vascular Surgery, Vascular Laboratory [address] [place] [id number] Carotid Duplex Ultrasound Report Patient Name: PATRICIA HAMLIN : 1940 (83y 10m) Study Date: 05/16/2024 11:57:01 AM Gender: F Tech: [place] Location: [id number] Ref Provider: LANDY SAWANT Quality: Adequate Order [...] PSV ?60 cm/sec - ?? FINDINGS: Performing Postal Delivery Officer: Batsheva Kohli RVT. Rt Common Carotid Artery: [...] above. Electronically Signed By: Nii Wilson MD [facility] 05/18/2024 12:27:58 AM CIVIL ENGINEERING DRAFTSPERSON Procedure Note Nii Wilson MD - 05/18/2024 [facility] - Department of Vascular Surgery,Vascular Laboratory [address] [place] [address] Carotid Duplex Ultrasound Report Patient Name: PATRICIA HAMLIN : 1940 (83y 10m) Study Date: 05/16/2024 11:57:01 AM Gender: F Tech: [place] Location: [id number] Ref Provider: LANDY SAWANT Quality: Adequate Order [...] RT VERT PSV 60cm/sec - FINDINGS: Performing Postal Delivery Officer: Batsheva Kohli RVT. Rt Common Carotid Artery: [...] Nii Wilson MD FACS 05/18/2024 12:27:58 AM CIVIL ENGINEERING DRAFTSPERSON Landy Sawant MD IMG US PROCEDURES Chanelle l Result documented in this encounter Visit Diagnoses Not on filedocumented in this encounter Additional Health Concerns Infection Onset Date Last Indicated Resolved Time Rhino/Enterovirus 05/14/2024 05/14/2024 05/21/2024 3:05 AM CIVIL ENGINEERING DRAFTSPERSON documented as of this encounter Care Teams Account Developer Relationship Specialty Start Date End Date Cedric Nguyen MD [address] [place] [address] PCP - General 09/17/16 documented as of this encounter
--- OUTSIDE RECORDS SUMMARY | 2024-05-24 20:53 | XMS_ITS | Encounter Summary ---
Author Organization [facility] Address [address] [place] [address] Phone Care Team Providers Care Psychiatric Aide Name Role Phone Cedric Nguyen MD Primary Care Provide r Encounter Details Date Type Department Care Team (Late st Contact Info) Description 08/29/2021 Telephone [facility] [address] [facility] 6th Floor [address] [place] [address] Fanta Coburn Social History Tobacco [...] to pay the monthly fee at the correction community, then it's not an issue. The challenge will be if she doesn't make enough to pay the monthly fees--and in that case, I would recommendyou talk with an elder law attorney general about what the best plan of action would be. Similarly, the value of the properties may put your mother over the Medicaid limit for assets. Different states have different rules about rental property, so this, also, would be a question for an elder law attorney general. And again, if your mom doesn't need [...] need to be her durable power of attorney general(DPOA) for healthcare. Depending on what kind of DPOA she has, you may also need letters from her doctors stating she can no longer make decisions for herself. If you need that, you can send Elana Benito a message through [employer] to ask about this. If you aren't [...] on filedocumented in this encounter Care Teams Psychiatric Aide Relationship Specialty Start Date End Date Cedric Nguyen MD [address] [place] [address] PCP - General 09/17/16 documented as of this encounter
--- OUTSIDE RECORDS SUMMARY | 2024-05-24 20:53 | XMS_ITS | Encounter Summary ---
Author Organization [facility] Address [address] [place] [address] Phone Care Team Providers Care Electronics Technician Name Role Phone Cedric Nguyen MD Primary Care Provide r Encounter Details Date Type Department Care Team (Late st Contact Info) Description 08/29/[address] 6th Floor [address] [place] [address] Fanta Coburn Social History Tobacco [...] in-person care consultation w/[place]aura [place] at the [address] [facility] following referral by the nurse practitioner. [...] younger than Patricia & she lives in [place] (over [place]5 hrs away), so she can???t [...] on filedocumented in this encounter Care Teams Electronics Technician Relationship Specialty Start Date End Date Cedric Ngyuen MD [address] [place] [address] PCP - General 09/17/16 documented as of this encounter
--- OUTSIDE RECORDS SUMMARY | 2024-05-24 20:53 | XMS_ITS | Encounter Summary ---
Author Organization [facility] Address [address] [place] [address] Phone Care Team Providers Care White Sugar Syrup Operator Name Role Phone Cedric Nguyen MD Primary Care Provide r Reason for Visit * Reason Comments Follow-up Encounter Details Date Type Department Care Team (Late st Contact Info) Description 08/27/2021 2:00 PM CDT Office Visit [facility] [address] [facility] 6th [address] [place] [address] Elana Oliver NP [address] [place] [address] Late onset Alzheimer's disease without behavioral disturbance [...] Patient Instructions * Patient Instructions* Elana Oliver, MANAGER LANGUAGE - 08/27/2021 2:00 PM CDT Images from the original note were not included. For Ms. Patricia Valdez (: 1940) [facility], Department of Neurology Clinic (Nurse Intervention Teacher, Mandie Vega) Provider today: Elana Oliver Nurse [...] custom sized WaterWear Bracelets?? come in stainless [employer]. Call [phone]. Https://www .Mobile Captain/store/alzheimers Medications: No changes were made in your [...] exercise for people with AD. Check local Call Loop centers for information about group exercise activities. [...] that could cause accidents. Make sure household usability engineer and medicines are out of reach. You [...] online. For additional assistance, email or call [phone] (press 1 for clinical trials). ClinicalTrials.gov is a resource provided by the U.S. National Library of Medicine. You can look upclinical trials (research opportunities) online At clinicaltrials.gov Alzheimer's Association [facility] Chapter: ; (toll free); http://www.alz.org, The Alzheimer's Association 29/12 Helpline provides reliable information and support to all those who need assistance. Call toll-free anytime day or night at . Caregiver Guide: tips for caregivers of people with Alzheimer's dementia, www.jordy.nih.gov/Alzheimers /Publication/Zxhoxe-okbmbi-zoyvaykjuf-disease/about-guide We highly recommend [facility], [address] [place] [address]. [address], , Occupational Therapists who offers caregiver training, family support, and in home safety assessmentsat no cost. Memorycare.org Fanta Coburn R.N. Servicenow Administrator Alzheimer's Association [address] [facility] [place] [address] Toll Free: [phone] ext [phone] Email: The best way to reach our team is via My Chart, this is a secure way for us to communicate about your health care. Please call The My Chart Support Desk: [phone] or [phone] to obtain a link. 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 CS reports the patient was hiding medications, [...] (SYNTHROID) 137 mcg tablet, Take by mouth elevator mechanic before breakfast, Disp: ,Rfl: ??? LORAZEPAM ORAL, [...] patients and families dealing witha dementia diagnosis. Servicenow Administrator Maricruz Coburn from the Alzheimer's Association. [facility]. ROS Per HPI, all other systems negative. BP 103/47 (BP Location: Left arm, Patient Position: Sitting) Pulse 97 Temp 36.2 ??C (97.1 ??F) (Temporal) Ht 163.8 cm (5' 4.5 ) Wt 78.9 kg (174 lb) SpO2 94% BMI 29.41 kg/m?? Medical Records Review: Reviewed [facility] notes and prior Neuropsychiatric [...] were symmetric. There was no pronator drift. Clbgnj-vbly-pasmdr testing was normal. No tremor or bradykinesia was detected. Reflexes were symmetric at the biceps and knees. Gait was slow, decreased arm swing, decreased step height and stride. She walked without teodoro tance She was fluent throughout the interview and examination. She had good insight into why she had cometo the [facility]. NEUROBEHAVIORAL TESTING REPORT [facility] Neurobehavioral Status Exam Results 08/01/2019 08/14/2020 08/27/2021 Repository ICF signed? No No No Verbal Fluency Total Score (No Data) 12 7 [place] Naming (15 item) Total Score 13 13 [...] On formal neurobehavioral testing, which took from 2118-5165 , scores were in the moderately impaired range on tests of semantic memory ([place] Naming, verbal fluency). Scores were in the [...] Alzheimerdementia. She lives with her daughter in [facility]. She would benefit from more help at home. CS met with our Servicenow Administrator Maricruz Coburn from the Alzheimer's Association today [...] Patricia Valdez (: 1940) [facility], Department of Neurology Clinic (Nurse Intervention Teacher, Mandie Vega) Provider today: Elana Oliver Nurse [...] WaterWear Bracelets?? come in stainless steel. Call [phone]. Https://www .Mobile Captain/store/alzheimers Medications: No changes were made in your [...] that could cause accidents. Make sure household usability engineer and medicines are out of reach. You [...] online. For additional assistance, email or call [phone] (press 1 for clinical trials). ClinicalTrials.gov is a resource provided by the U.S. National Library of Medicine. You can look upclinical trials (research opportunities) online At clinicaltrials.gov Alzheimer's Association [facility] Chapter: ; (toll free); http://www.alz.org, The Alzheimer's Association 29/12 Helpline provides reliable information and support to all those who need assistance. Call toll-free anytime day or night at . Caregiver Guide: tips for caregivers of people with Alzheimer's dementia, www.jordy.nih.gov/Alzheimers /Publication/Qfbkti-pwbbds-sxgfldiffu-disease/about-guide We highly recommend [facility], [address] [place] [address]. [address], , Occupational Therapists who offers caregiver training, family support, and in home safety assessmentsat no cost. Memorycarehs.org Fanta Coburn R.N. Servicenow Administrator Alzheimer's Association [address] [place] [address]. [place] [address] Toll Free: [phone] ext [phone] Email: The best way to reach our team is via My Chart, this is a secure way for us to communicate about your health care. Please call The My Chart Support Desk: [phone] or [phone] to obtain a link. If you prefer to communicate by phone, please call our nurse at [phone], option 4, leave a message, this voicemail is checked several times per day. Elana Oliver NP [facility] documented in this encounter Plan of Treatment Not on file documented as of this encounter Visit Diagnoses Diagnosis Late onset Alzheimer's disease without behavioral disturbance (HCC)- Primary documented in this encounter Discontinued Medications Medication Sig Discontinue Reason Start Date End Da te hydroCHLOROthiazide (HYDRODIURIL) 25 mg tablet Take 25 mg by mouth daily 08/27/2021 ikcycjhqufof-Fl-wrde-mine rals tablet Take by mouth 08/27/2021 ascorbic [...] 08/27/2022 added in this encounter Care Teams White Sugar Syrup Operator Relationship Specialty Start Date End Date Cedric Nguyen MD [address] [place] [id number] PCP - General 09/17/16 documented as of this encounter
--- OUTSIDE RECORDS SUMMARY | 2024-05-24 20:53 | XMS_ITS | Encounter Summary ---
Author Organization [facility] Address [address] [place] [address] Phone Care Team Providers Care Fiberglass Insulation Installer Name Role Phone Cedric Nguyen MD Primary Care Provide r Encounter Details Date Type Department Care Team (Late st Contact Info) Description 09/02/2023 1:45 PM CDT Office Visit [facility] [address] 6th [address] [place] [address] Chad Boudreaux NP [address] [place] [address] Late onset Alzheimer's disease with [...] CDT [facility] After Visit Summary [facility], Department of Neurology Clinic PIERRE López (Nurse [...] today. You may wish to consult an attorney general regarding these matters. RESEARCH STUDIES Many people [...] for you. As a patient at the [facility] [place], you or your caregivers may be asked to sign a consentform so that some information about you may be included in the [facility] Data Repository. This is a list of people who have been seen in our clinic and can be used to help researchers at [facility] find people who might be interested in participating in research studies. If you signed this form, you might be contacted by some of these researchers to see if you might be interested in participating in a research project. You and family can decide if you want to hear moreabout these projects and if you would like to participate. Signing the [facility] Data Repository consent form does not mean [...] the annual assessment. We will ask the production control coordinator to contact you with more information. If you do not hear from the MAP team you may consider calling [phone]. You should mention that you have seen one of the physicians at the [facility]. Patients and their care partners (age 50 and up) are invited to join the APT Webstudy, a national study sponsored by the National [place] of Aging, one of the National Institutes [...] Additional Resources and Support: Alzheimer's Association of [place] Chapter: ; (toll free); http://www.alz.org, The Alzheimer's Association 29/12 Helpline provides reliable information and support to all those who need assistance. Call toll-free anytime day or night at . Memory Fdc Solution: [employer] is to extend and improve quality time at home for people living with dementia and their care partners, or Memorycarehs.org, They provide family medicare sales representative support, education and skills. Memory Fdc Solutions will make it easier for you to enhance your skills and adapt your home setting to meet the ever-changing demands of caregiving. Fanta Coburn R.N. Commodity Lead Alzheimer's Association [address] [place] [address] Toll Free: [phone] ext [phone] Email: The best way to reach our team is via My Chart, this is a secure way for us to communicate about your health care. Please call The My Chart Support Desk: [phone] for help with My Chart, or [phone] to obtain a link for access. Future Appointments Date Time Provider Department Center 03/09/2024 1:00 PM Chad Boudreaux NP [facility] We offer in person [...] CENTER OFFICE VISIT PIERRE López (Nurse Practitioner) [facility] Department of Neurology Patient Name: PATRICIA HAMLIN Medical Record Number (MRN): [id number] Date of (): 1940 Encounter Date: 09/02/23 Primary Care Practitioner: Cedric Nguyen MD Chief Complaint: Memory and thinking difficulty HISTORY OF PRESENT ILLNESS: Ms. Hamlin is a 83 y.o. lady who comes to the [facility] today for further evaluation of memory and thinking problems. She was last seen in the [facility] by nurse practitioner, Elana Oliver, on 08/27/22. [...] with Elana in August 2022. Lives in jail. Drinks 2-3 beers a day. Cannot makemenu selection. Incontinent of urine. PCP started her on risperidone. MMSE 16. Today's Visit: CS thinks memory and thinking problems have declined since the last visit. She continues to live inthe jail and has a phone. She is calling [...] managing appointments. Medications are managed by the jail. She will repeat sentences within minutes. She does misplace items. She will rarely remember the day of the week. She does have difficulty with time relationships. She can find her way about the jail. She does wander. There was a recent instance where she left the jail and the nurses had to go find her. She have trouble handling a small emergency as well as understanding explanations. Social interactions are, for the most part, appropriate. She gets more agitated. She participates in the activities within the jail (i.e. bingo, music, art). CS takes patient out a couple of times a week. She drinks at most, 2 beers, a night. Sheis able to use her phone well. She makes her own bed. She reads magazines and watches television. She has a couple of friends at the jail. She is able to take care of [...] (SYNTHROID) 137 mcg tablet, Take by mouth professor of early childhood education before breakfast, Disp: , Rfl: LORAZEPAM ORAL, [...] the interview and examination. Neuropsychiatric Testing: The special effects technician spent from 1323 to 1332 on [...] PM 08/27/2022 1:05 PM 09/02/2023 7:00 AM [facility] Neurobehavioral Status Exam Results Repository ICF signed? No No No Yes Yes Verbal Fluency Total Score 12 7 6 [place] Naming (15 item) Total Score 13 13 [...] PM 08/27/2022 1:05 PM 09/02/2023 7:00 AM [facility] CDR/DIAGNOSIS NEW Repository ICF signed? No No [...] in any separately reportable services. PIERRE López [facility] [address] [place] [address], [address] [place]. [address] Patient Instructions [facility] After Visit Summary [facility], Department of Neurology Clinic PIERRE López (Nurse [...] today. You may wish to consult an attorney general regarding these matters. RESEARCH STUDIES Many people [...] you. As a patient at the [facility], you or your caregivers may be asked to sign a consentform so that some information about you may be included in the [facility] Data Repository. This is a list of people who have been seen in our clinic and can be used to help researchers at [facility] find people who might be interested in participating in research studies. If you signed this form, you might be contacted by some of these researchers to see if you might be interested in participating in a research project. You and family can decide if you want to hear moreabout these projects and if you would like to participate. Signing the [facility] Data Repository consent form does not mean [...] the annual assessment. We will ask the production control coordinator to contact you with more information. If you do not hear from the MAP team you may consider calling [phone]. You should mention that you have seen one of the physicians at the [facility]. Patients and their care partners (age 50 and up) are invited to join the APT Webstudy, a national study sponsored by the National [place] of Aging, one of the National Institutes [...] Additional Resources and Support: Alzheimer's Association of [place] Chapter: ; (toll free); http://www.alz.org, The Alzheimer's Association 29/12 Helpline provides reliable information and support to all those who need assistance. Call toll-free anytime day or night at . Memory Fdc Solution: [employer] is to extend and improve quality time at home for people living with dementia and their care partners, or Memorycarehs.org, They provide family medicare sales representative support, education and skills. Memory Fdc Solutions will make it easier for you to enhance your skills and adapt your home setting to meet the ever-changing demands of caregiving. Fanta Coburn R.N. Commodity Lead Alzheimer's Association [address] [place] [address]. [place] [address] Toll Free: [phone] ext [phone] Email: The best way to reach our team is via My Chart, this is a secure way for us to communicate about your health care. Please call The My Chart Support Desk: [phone] for help with My Chart, or [phone] to obtain a link for access. Future Appointments Date Time Provider Department Center 03/09/2024 1:00 PM Chad Boudreaux NP [facility] NL We offer in person [...] 4 added in this encounter Care Teams Fiberglass Insulation Installer Relationship Specialty Start Date End Date Cedric Nguyen MD [address] [place] [address] PCP - General 09/17/16 documented as of this encounter
--- OUTSIDE RECORDS SUMMARY | 2024-05-24 20:53 | XMS_ITS | Encounter Summary ---
Author Organization [facility] Address [address] [place] [address] Phone Care Team Providers Care Head Sulfide Operator Name Role Phone Cedric Nguyen MD Primary Care Provide r Reason for Referral * Consultation (Routine) - Authorized Specialty Diagnoses / Procedures Referred By Awa foley Referred To Contact Bone Health Diagnoses Pubic ramus fracture, right, closed, initial encounter (HCC) Ngoc Singh MD [address] [facility] [place] [address] Phone: tel: fax: [facility] (All Locations) Referral ID Status Reason Start Date Expiration Date Visits Requested Visits Authorized [id number] Authorized Specialty Services Required 05/16/2024 06/15/2025 1 1 Question Answer Please select the performing region: [facility] (All Locations) [167] # of visits: 1 Comments Fall resulting in R zone 1 sacral fx, R inf and sup pubic rami fx (LC1) [facility]IC[facility] DECK Encounter Details Date Type Department Care Team (Late st Contact Info) Description 05/16/2024 Orders Only [facility] Orthopaedic Surgery [address] [facility] 6th [place] [address] [place] [address] Ngoc Singh MD [address] [address] Pubic ramus fracture, right, closed, initial encounter [...] Time Rhino/Enterovirus 05/14/2024 05/14/2024 05/21/2024 3:05 AM ELECTRICIAN DECK documented as of this encounter Care Teams Head Sulfide Operator Relationship Specialty Start Date End Date Cedric Nguyen MD [address] [place] [address] PCP - General 09/17/16 documented as of this encounter
--- OUTSIDE RECORDS SUMMARY | 2024-05-24 20:53 | XMS_ITS | Encounter Summary ---
Author Organization [facility] Address [address] [place] [address] Phone Care Team Providers Care College Archivist Name Role Phone Cedric Nguyen MD Primary Care Provide r Encounter Details Date Type Department Care Team (Late st Contact Info) Description 03/17/2024 1:45 PM CDT Office Visit [facility] [address] 6th [address] [place] [address] Chad Boudreaux NP [address] [place] [address] Late onset Alzheimer's disease with [...] CDT [facility] After Visit Summary [facility], Department of Neurology Clinic PIERRE López (Nurse [...] about you may be included in the [facility] Data Repository. This is a list of people who have been seen in our clinic and can be used to help researchers at [facility] find people who might be interested in participating in research studies. If you signed this form, you might be contacted by some of these researchers to see if you might be interested in participating in a research project. You and family can decide if you want to hear moreabout these projects and if you would like to participate. Signing the [facility] Data Repository consent form does not [...] the annual assessment. We will ask the operations support coordinator to contact you with more information. If you do not hear from the MAP team you may consider calling [phone]. You should mention that you have seen one of the physicians at the [facility]. Patients and their care partners (age 50 and up) are invited to join the APT Webstudy, a national study sponsored by the National [place] of Aging, one of the National Institutes [...] information on current and upcoming research at [facility] in [place] can be found below: [email or web address]/ [email or web address]-[email or web address]/ Additional Resources and Support: Alzheimer's Association of [place] Chapter: ; (toll free); http://www.alz.org The Alzheimer's Association 29/12 Helpline provides reliable information and support to all those who need assistance. Call toll-free anytime day or night at . Memory Long Term Solutions: [place] is to extend and improve quality time at home for people livingwith dementia and their care partners, or memorycarehs.org, They provide family healthcare corporate account director support, education and skills. Memory Long Term Solutions will make it easier for you to enhance your skills and adapt your home setting to meet the ever-changing demands of caregiving. Fanta Coburn R.N. Avionics Systems Engineer Alzheimer's Association [address] [facility] [place] [address] Toll Free: [phone] ext [phone] Email: The best way to reach our team is via My Chart, this is a secure way for us to communicate about your health care. Please call The My Chart Support Desk: [phone] for help with My Chart, or [phone] to obtain a link for access. No future appointments. We offer in person and telemedicine (virtual) visits. Please let us know your preference when scheduling. documented in this encounter Progress Notes * Chad Boudreaux NP - 03/17/2024 12:15 PM CDT Images from the original note were not included. [facility] OFFICE VISIT PIERRE óLpez (Nurse Practitioner) [facility] Department of Neurology Patient Name: PATRICIA HAMLIN Medical Record Number (MRN): [id number] Date of (): 1940 Encounter Date: 03/17/24 Primary Care Practitioner: Cedric Nguyen MD Chief Complaint: Memory and thinking difficulty HISTORY OF PRESENT ILLNESS: Ms. Hamlin is a 83 y.o. lady who comes to the [facility] today for further evaluation of memory and thinking problems. She was last seen in the [facility] by myself on 09/02/23. There have been [...] 6. Visit with Elana (08/2022) Lives in assisted. Drinks 2-3 beers a day. Cannot make menu selection.Incontinent of urine. PCP started her on risperidone. MMSE 16. Seen by myself (08/2023). Living in assisted and has phone. Will call daughter repetitively [...] to participate in the activities within the assisted (i.e. bingo, music, art). CS takes patient [...] (SYNTHROID) 137 mcg tablet, Take by mouth landing gear mechanic before breakfast, Disp: , Rfl: LORAZEPAM ORAL, [...] the interview and examination. Neuropsychiatric Testing The electrocardiographic technician spent from 1350 to 1359 on [...] PM 09/02/2023 7:00 AM 03/17/2024 7:00 AM [facility] Neurobehavioral Status Exam Results Repository ICF signed? No No No Yes Yes No Verbal Fluency Total Score -- 12 7 6 -- -- [place] Naming (15 item) Total Score 13 13 [...] PM 09/02/2023 7:00 AM 03/17/2024 7:00 AM [facility] CDR/DIAGNOSIS NEW Repository ICF signed? No No [...] any separately reportable services. Chad Boudreaux NP [facility] [address] [place] [address], [address] [place]. [address] Patient Instructions [facility] After Visit Summary [facility], Department of Neurology Clinic PIERRE López (Nurse [...] about you may be included in the [facility] [place] Data Repository. This is a list of people who have been seen in our clinic and can be used to help researchers at [facility] find people who might be interested in participating in research studies. If you signed this form, you might be contacted by some of these researchers to see if you might be interested in participating in a research project. You and family can decide if you want to hear moreabout these projects and if you would like to participate. Signing the [facility] Data Repository consent form does not [...] the annual assessment. We will ask the operations support coordinator to contact you with more information. If you do not hear from the MAP team you may consider calling [phone]. You should mention that you have seen one of the physicians at the [facility]. Patients and their care partners (age 50 and up) are invited to join the APT Webstudy, a national study sponsored by the National [place] of Aging, one of the National Institutes [...] information on current and upcoming research at [facility] in [place] can be found below: [email or web address] [email or web address].[email or web address]/[email or web address]-[email or web address]-[email or web address]/ Additional Resources and Support: Alzheimer's Association [facility] Chapter: ; (toll free); http://www.alz.org The Alzheimer's Association 29/12 Helpline provides reliable information and support to all those who need assistance. Call toll-free anytime day or night at . Memory Long Term Solutions: [place] is to extend and improve quality time at home for people livingwith dementia and their care partners, or memorycarehs.org, They provide family healthcare corporate account director support, education and skills. Memory Long Term Solutions will make it easier for you to enhance your skills and adapt your home setting to meet the ever-changing demands of caregiving. Fanta Coburn R.N. Avionics Systems Engineer Alzheimer's Association [address] [facility] [place] [address] Toll Free: [phone] ext [phone] Email: The best way to reach our team is via My Chart, this is a secure way for us to communicate about your health care. Please call The My Chart Support Desk: [phone] for help with My Chart, or [phone] to obtain a link for access. No [...] Primary documented in this encounter Care Teams College Archivist Relationship Specialty Start Date End Date Cedric Nguyen MD [address] [place] [address] PCP - General 09/17/16 documented as of this encounter
--- OUTSIDE RECORDS SUMMARY | 2024-05-24 20:53 | XMS_ITS | Encounter Summary ---
Author Organization [facility] Address [address] [place] [address] Phone Care Team Providers Care Mailhouse Operator Name Role Phone Cedric Nguyen MD Primary Care Provide r Encounter Details Date Type Department Care Team (Late st Contact Info) Description 02/09/2023 Telephone [facility] [address] [facility] [address] [facility] 6th [address] [place] [address] Fanta Coburn Social History Tobacco [...] email: Your mother's nurse practitioner at the [facility] said you had questions about burial expenses [...] on filedocumented in this encounter Care Teams Mailhouse Operator Relationship Specialty Start Date End Date Cedric Nguyen MD [address] [place] [address] PCP - General 09/17/16 documented as of this encounter
== END 2024-05-21 10:40 ==
PROVIDERS: Emergency Provider Internal Medicine Critical Care Medicine; PCP Family Medicine
DX: R41.0 Disorientation, unspecified (principal); F03.90 Unspecified dementia, unspecified severity, without behavioral disturbance, psychotic disturbance, mood disturbance, and anxiety; N18.9 Chronic kidney disease, unspecified; W19.XXXA Unspecified fall, initial encounter
CPT/HCPCS: 36415; 70450; 71045; 72125; 72170; 80053; 81001; 83605; 83690; 85025; 96372; 99284; A9270